=== PATIENT | male | born 1945 | race Caucasian/White ===

== ENCOUNTER → 2016-02-12 | Outpatient (CLI) | payer BC ==
[~2016-02-12] MED LIST: ASCO500C43 PO; ASPCH81X PO; ATOR-22 PO; OPTIRAY 320 IV PRN; VITACAP37 PO
--- NOTE | 2016-02-12 10:05 | DIAGNOSTIC IMAGING REPORT ---
CT OF THE CHEST WITH IV CONTRAST CLINICAL HISTORY: Exacerbation of COPD. COMPARISON STUDY: No previous studies for comparison. TECHNIQUE: Following the IV administration of 92 mL of Optiray-320, CT of the thorax was performed from the thoracic inlet to the lung bases. Images are reviewed in the axial, sagittal, and coronal planes. IV contrast was administered without complication. CT DOSE: 371.48 mGy.cm FINDINGS: Thyroid: Imaged portions of the thyroid gland are normal in appearance. Thoracic aorta: The thoracic aorta is normal in course and caliber, noting standard 3-vessel arch anatomy. No aneurysm or dissection is seen. Pulmonary vasculature: The pulmonary trunk is normal in caliber. There are no central filling defects identified to suggest pulmonary embolus. Note that this examination was not protocoled for the evaluation of pulmonary emboli. HEART: The heart is normal in size and configuration, without pericardial effusion. Lungs and pleural spaces: There is pulmonary emphysema. There are no pleural effusions. There is no focal pulmonary consolidation. There is a 2.5 mm right upper lobe pulmonary nodule as visualized in image #[id number]. Mediastinum: There is no mediastinal lymphadenopathy. Pam: Clear. Axilla: Clear. Upper abdomen: There is a 2 cm right renal cyst. There is a 2 left renal cysts measuring 7 mm and 8 mm respectively. Skeletal structures: There are no lytic or blastic osseous lesions. IMPRESSION: 1. Pulmonary emphysema 2. No evidence of focal pulmonary consolidation 3. No evidence of pathologic adenopathy 4. 2.5 mm right upper lobe pulmonary nodule. 12 month follow-up is recommended if this patient is at high risk, otherwise no further follow-up is indicated Please refer to below summary of Fleischner criteria recommendations for follow-up of incidental CT nodules (Zoltan Cook, Guidelines for management of small pulmonary nodules detected on CT scans: A statement from the Fleischner Society, Radiology 237: [id number].) Low Risk Patient: Minimal or no smoking or other known risk factors for malignancy <=4 mm: No follow-up needed. >4-6 mm: Initial follow-up CT at 12 months; if unchanged, no further follow-up. >6-8 mm: Initial follow-up CT at 6-12 months then at 18-24 months if no change. >8 mm: Follow-up CT at \R\3, 9, 24 months, or PET and/or biopsy. High Risk Patient: History of smoking or other known risk factors <=4 mm: Follow-up at 12 months; if unchanged, no further follow-up. >4-6 mm: Initial follow-up CT at 6-12 months then at 18-24 months if no change. >6-8 mm: Initial follow-up CT at 3-6 months then at 9-12 and 24 months if no change. >8 mm: Same as low risk patient. Note: Nodule size measured as average of length and width. Ground glass or partly solid nodules may require longer follow-up to exclude indolent adenocarcinoma. Electronically signed by: Aditya Sorot M.D. 02/12/2016 10:03 AM
== END | disposition home or self-care (01) ==
LOC: C.CTS 09:37
PROVIDERS: ATTEND Internal Medicine Pulmonary Disease
DX: Z00.00 Encounter for general adult medical examination without abnormal findings (principal); I71.4 Abdominal aortic aneurysm, without rupture; J44.9 Chronic obstructive pulmonary disease, unspecified; R91.1 Solitary pulmonary nodule

== ENCOUNTER → 2017-03-03 | Outpatient (CLI) | payer BC ==
[~2017-03-03] MED LIST changes: -OPTIRAY 320 IV PRN
--- NOTE | 2017-03-03 11:24 | DIAGNOSTIC IMAGING REPORT ---
CT SCAN OF THE CHEST WITHOUT IV CONTRAST CLINICAL HISTORY: Follow-up pulmonary nodule. COMPARISON STUDY: Chest CT dated 03/03/2017. TECHNIQUE: CT scan of the thorax was performed from the thoracic inlet to the upper abdomen. Images are reviewed in the axial, sagittal, and coronal planes. IV contrast was not administered for this examination as per the referring clinician. A dose lowering technique was utilized adhering to the principles of ALARA. CT DOSE: 377.53 mGy.cm FINDINGS: Thyroid: Imaged portions of the thyroid gland are normal in size and attenuation. Thoracic aorta: There is mild atherosclerotic calcification of the thoracic aorta, which is normal in caliber and demonstrates standard 3-vessel arch anatomy. Heart: The heart is normal in size and without pericardial effusion. The coronary arteries are densely calcified. Lungs and pleural spaces: Emphysematous change is identified. No airspace consolidation or pleural effusion is seen. Layering secretions are noted in the trachea. A 3 mm right upper lobe pulmonary nodule on image #85 is unchanged from 02/12/2016. No new nodule is seen. Mediastinum: There is no mediastinal lymphadenopathy. Pam: Not well assessed without IV contrast. Axillae: There is no axillary lymphadenopathy. Upper abdomen: There are numerous small nonobstructing right renal calculi which measure up to 3 mm. An aortic stent graft is partially imaged. Skeletal structures: The skeletal structures are osteopenic. No lytic or blastic bony lesions are seen. IMPRESSION: 1. Emphysema. 2. No airspace consolidation or pleural effusion is identified. 3. A pathologically indeterminant but low suspicion 3 mm right upper lobe nodule is unchanged from 02/12/2016. 1 additional follow-up examination in one years time is recommended to document 2 years of stability. 4. Right-sided nephrolithiasis. Electronically signed by: Edward Moore M.D. 03/03/2017 11:22 AM Dictated Date/Time: 03/03/2017 11:09 AM
== END | disposition home or self-care (01) ==
LOC: C.CTS 10:35
PROVIDERS: ATTEND Internal Medicine Critical Care Medicine
DX: R91.1 Solitary pulmonary nodule (principal); J43.9 Emphysema, unspecified; N20.0 Calculus of kidney

== ENCOUNTER → 2017-04-07 | Outpatient (CLI) | payer BC ==
[2017-04-07 11:02] LABS: BLOOD UREA NITROGEN 18 mg/dl (7-18); GLUCOSE 97 mg/dl (70-99)
[2017-04-07 11:03] LABS: ALBUMIN 4.1 gm/dl (3.4-5.0); ALT/SGPT 36 U/L (12-78); AST/SGOT 19 U/L (15-37); CALCIUM 9.2 mg/dl (8.5-10.1); CARBON DIOXIDE 28 mmol/L (21-32); CREATININE 1.16 mg/dl (0.60-1.40); POTASSIUM 4.2 mmol/L (3.5-5.1); SODIUM 139 mmol/L (136-145)
[2017-04-07 11:05] LABS: ALKALINE PHOSPHATASE 62 U/L (45-117); CHOLESTEROL 143 mg/dl (0-200); LDL CHOLESTEROL CALCULATED 67 mg/dl
== END | disposition home or self-care (01) ==
LOC: C.LABBC 08:41
PROVIDERS: ATTEND Family Medicine Adult Medicine
DX: Z00.00 Encounter for general adult medical examination without abnormal findings (principal); E78.5 Hyperlipidemia, unspecified

== ENCOUNTER 2023-01-29 14:15 | Observation (INO) ==
--- NOTE | 2023-01-29 14:55 | Emergency Department Note ---
Impression & Plan SOB (shortness of breath), Hypoxia, Pneumothorax ED Provider Note NAME: COLT BRAVO AGE: 78 SEX: M : 1945 ARRIVES VIA: Walk-In INFORMANT: [Patient] ED PROVIDER(S): [Edward Pickett MD] CHIEF COMPLAINT: DrPrice Royal HISTORY OF PRESENT ILLNESS: The patient is a 78-year-old male who 2 days ago had a bronchoscopy with biopsy. After the procedure he was felt to have a small pneumothorax. The patient presented today as an outpatient for a repeat chest x-ray and the pneumothorax had increased in size significantly. He was called and told to report back to the hospital for a chest tube. 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 The patient does have COPD. He does not typically wear oxygen. He has felt more short of breath the last few days. No cough, no congestion. No fever. PMHx/PSHx/Social Hx: See Below PHYSICAL EXAM: GENERAL: Patient is in no acute distress. HEENT: No acute trauma, normocephalic atraumatic, mucous membranes moist, no nasal congestion. NECK: No stridor, no adenopathy, no meningismus, trachea is midline. LUNGS: There are diminished breath sounds on the left, the right lung has a few scattered wheezes. He is not in respiratory distress HEART: Without murmurs gallops or rubs, regular rate and rhythm. ABDOMEN: Soft, nontender, no peritonitis. EXTREMITIES: No cyanosis, full range of motion of all the joints without pain or difficulty. NEUROLOGIC: Oriented x 3, no acute motor or sensory deficits, no focal weakness. SKIN: No jaundice, no diaphoresis. DIFFERENTIAL DIAGNOSIS: Pneumonia, pneumothorax, pneumomediastinum, hypoxia, anemia, cardiac ischemia, among others. EMERGENCY DEPARTMENT PROCEDURES: MEDICAL DECISION MAKING: There is a normal white blood cell count, there is a normal hemoglobin. There is a normal platelet count. No coagulopathy. No renal failure or significant electrolyte abnormality. No concerning liver enzyme elevation. Chest x-ray from earlier today as an outpatient showed a large left-sided pneumothorax. On exam, the patient was initially hypoxic but this improved with O2 supplementation. He had diminished breath sounds on the left. I did speak with pulmonology, the patient did have a chest tube placed by pulmonology. A repeat film showed near resolution of the pneumothorax. The patient is being hospitalized. I did speak with the patient and case management, the on-call hospitalist was consulted. Prior/Outside records/notes reviewed: Chest x-ray results from earlier today as an outpatient showing a left-sided pneumothorax. ECG per my interpretation: Indication was shortness of breath. The ECG shows a sinus rhythm with a PVC. The rate is 71. There is no ST elevation, QTc is 395. Continuous Cardiac Monitoring per my interpretation: An order was placed for continuous cardiac monitoring. The monitor shows a rate of 77 with normal sinus rhythm. Imaging/x-ray results per my interpretation: Chest x-ray from earlier today as an outpatient shows a very large left-sided pneumothorax. There was no mediastinal shift. Repeat chest x-ray showed near resolution of the previous left-sided pneumothorax. A small chest tube was in proper position. Chronic Medical/Social conditions affecting care: COPD. Care/Management discussed with: Pulmonology-Dr. Foote. Case management, the on-call hospitalist. Level of care consideration(s): After review of the information above and other included data: --I believe the patient requires escalation of care to admission DISPOSITION: Admission Past Med/Surg History Medical History Lung cancer Abdominal aortic aneurysm s/p repair 2016 Multiple pulmonary nodules determined by computed tomography of lung BPH (benign prostatic hyperplasia) Kidney stones hx PVC (premature ventricular contraction) on occasion Hypertension Diverticulosis Hyperlipemia COPD (chronic obstructive pulmonary disease) well controlled per pt > no res inh use Surgical History History of aortic aneurysm repair endovascular > [facility] [place] > 2016 > follows with [facility] cardiology. Has to go for scan on 02/06/23 to check for "leak around the stent" as evidence of size increase per recent ultrasound [facility]. History of cataract surgery bilat History of tooth extraction dental implants History of lithotripsy History of inguinal hernia repair left x 1, right x 2. H/O colonoscopy 07/2020 repeat 5 years Family History Father Colon cancer Colorectal cancer Family/Other Heart disease Hypertension Mother Stroke Denies family history of Ovarian cancer Prostate cancer Myocardial infarction Breast cancer Social History Smoking Status: Former smoker Tobacco Type: Cigarettes Age Started Using Tobacco: 32; packs per day: 0.5; Cigarettes Per Day: 10 cigs per day; Second Hand Exposure: No; Do You Dip or Chew Tobacco: No; Hx Alcohol Use: No Hx Substance Use: No Preferred Language: Azeri Communication Ability: Effective Visual Impairment: Limited Hearing Ability: Normal [employer] Required: No Beliefs That Will Affect Care: None marital status: Current Living Situation: Spouse Current Living Situation Comment: lives with current 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 How many Children do You have: 1 Feels Safe at Home: Yes Childhood Exposure to Second-Hand Smoke: No caffeine: Yes Dental Care, Regularly: Yes Physical Activity Frequency: Does not Exercise Seatbelt Use: always Sunscreen Use: Yes Assistive Devices: None Allergies Allergies Allergy/AdvReac Type Severity Reaction Status Date / Time JUAN R Inhibitors AdvReac Intermediate hyperkalemi Verified 01/29/23 14:50 a Home Meds Home Medications Medication Instructions Recorded Confirmed ascorbate calcium (vitamin C) 500 500 mg PO QAM 09/23/18 01/29/23 mg tablet aspirin 81 mg tablet,delayed 81 mg PO QAM 09/23/18 01/29/23 release (Adult Aspirin Regimen) vitamin E succinate 268 mg (400 400 units PO QAM 11/30/18 01/29/23 unit) tablet fluticasone fur. 100 mcg-umeclid 1 inh inhalation DAILY PRN sob 04/30/22 01/29/23 62.5 mcg-vilant 25 mcg inhalat.powder (Trelegy Ellipta) amlodipine 5 mg tablet 5 mg PO QPM 01/20/23 01/29/23 cholecalciferol (vitamin D3) 50 50 mcg PO QPM 01/20/23 01/29/23 mcg (2,000 unit) capsule (Vitamin D3) Previous Rx's Medication Instructions Recorded albuterol sulfate 90 mcg/actuation 2 inh inhalation QID PRN shortness 12/19/20 aerosol inhaler of breath or wheezing #8.5 grams atorvastatin 20 mg tablet (Lipitor) 20 mg PO PM 90 days #90 tabs 06/24/22 Results & Data (ED) Vital Signs Vital Signs - 24 hr 01/29/23 14:16 01/29/23 14:32 01/29/23 15:15 Temperature 36.5 C Temperature Source Skin Pulse Rate 77 Pulse Rate [Apical] 84 Pulse Rate from SpO2 Sensor Respiratory Rate 18 20 Respiratory Effort / Characteristics Non-Labored Spontaneous Respiratory Depth Normal Respiratory Pattern Regular Blood Pressure 132/82 131/84 Blood Pressure [Left Arm] 157/87 H Blood Pressure Mean 98 97 Blood Pressure Mean [Left Arm] 110 Pulse Oximetry 94 85 L Oxygen Delivery Method Nasal Cannula Room Air Oxygen Flow Rate 4 Sepsis Recent Fever Within 48 Hours No Sepsis New/Unexplained Change in Mental Status N/A Sepsis Action Taken by Nursing No Action Required End-Tidal CO2 01/29/23 15:15 01/29/23 15:21 01/29/23 15:25 Temperature Temperature Source Pulse Rate 76 66 Pulse Rate [Apical] 69 Pulse Rate from SpO2 Sensor 73 Respiratory Rate 13 18 Respiratory Effort / Characteristics Respiratory Depth Respiratory Pattern Blood Pressure Blood Pressure [Left Arm] 131/84 Blood Pressure Mean Blood Pressure Mean [Left Arm] 99 Pulse Oximetry 94 93 Oxygen Delivery Method Room Air Oxygen Flow Rate Sepsis Recent Fever Within 48 Hours Sepsis New/Unexplained Change in Mental Status Sepsis Action Taken by Nursing End-Tidal CO2 20 01/29/23 15:30 01/29/23 15:30 01/29/23 15:45 Temperature Temperature Source Pulse Rate 74 Pulse Rate [Apical] Pulse Rate from SpO2 Sensor 75 Respiratory Rate 20 Respiratory Effort / Characteristics Respiratory Depth Respiratory Pattern Blood Pressure 142/87 H 136/79 Blood Pressure [Left Arm] Blood Pressure Mean 107 105 Blood Pressure Mean [Left Arm] Pulse Oximetry 88 L Oxygen Delivery Method Room Air Oxygen Flow Rate Sepsis Recent Fever Within 48 Hours Sepsis New/Unexplained Change in Mental Status Sepsis Action Taken by Nursing End-Tidal CO2 01/29/23 15:45 01/29/23 16:00 01/29/23 16:00 Temperature Temperature Source Pulse Rate 75 71 Pulse Rate [Apical] Pulse Rate from SpO2 Sensor 72 69 Respiratory Rate 18 18 Respiratory Effort / Characteristics Respiratory Depth Respiratory Pattern Blood Pressure 130/73 Blood Pressure [Left Arm] Blood Pressure Mean 90 Blood Pressure Mean [Left Arm] Pulse Oximetry 91 90 Oxygen Delivery Method Room Air Room Air Oxygen Flow Rate Sepsis Recent Fever Within 48 Hours Sepsis New/Unexplained Change in Mental Status Sepsis Action Taken by Nursing End-Tidal CO2 01/29/23 16:21 01/29/23 16:21 Temperature Temperature Source Pulse Rate 67 Pulse Rate [Apical] Pulse Rate from SpO2 Sensor 67 Respiratory Rate 18 Respiratory Effort / Characteristics Respiratory Depth Respiratory Pattern Blood Pressure 131/79 Blood Pressure [Left Arm] Blood Pressure Mean 98 Blood Pressure Mean [Left Arm] Pulse Oximetry 91 Oxygen Delivery Method Room Air Oxygen Flow Rate Sepsis Recent Fever Within 48 Hours Sepsis New/Unexplained Change in Mental Status Sepsis Action Taken by Nursing End-Tidal CO2 Home Medications Current Medication List: was personally reviewed by me Laboratory Data Attestation: I reviewed the patient's lab results. 01/29/23 14:45 01/29/23 14:45 Lab Results 01/29/23 Range/Units 14:45 WBC 10.80 (4.8-10.8) K/ul RBC 4.71 (4.70-6.10) M/uL Hgb 14.5 (14.0-18.0) g/dl Hct 43.1 (42.0-52.0) % MCV 91.5 (80.0-100.0) fL MCH 30.8 (25.0-34.0) pg MCHC 33.6 (32.0-36.0) g/dL RDW Std Deviation 50.2 H (36.4-46.3) fL RDW Coeff of Fany 14.9 H (11.5-14.5) % Plt Count 235 (130-400) K/uL MPV 10.3 (9.4-12.4) fL Immature Gran % (Auto) 0.5 % Neut % (Auto) 73.4 % Lymph % (Auto) 16.8 % [place] % (Auto) 7.7 % Eos % (Auto) 1.0 % Baso % (Auto) 0.6 % Neut # (Auto) 7.94 H (1.40-6.50) K/uL Lymph # (Auto) 1.81 (1.20-3.40) K/uL [place] # (Auto) 0.83 H (0.11-0.59) K/uL Eos # (Auto) 0.11 (0.00-0.50) K/uL Baso # (Auto) 0.06 (0.00-0.20) K/uL Immature Gran # (Auto) 0.05 (0.01-0.20) K/uL PT 10.3 (9.0-12.0) Seconds INR 0.9 (0.9-1.1) APTT 27 (21-31) Seconds PTT Ratio 1.0 Sodium 139 (136-145) mmol/L Potassium 4.0 (3.5-5.1) mmol/L Chloride 102 (98-107) mmol/L Carbon Dioxide 31 (21-32) mmol/L Anion Gap 6 (3-11) BUN 20 (6-23) mg/dl Creatinine 1.27 (0.6-1.4) mg/dl Est Cr Clr Drug Dosing 46.3 ml/min Est GFR ( Amer) 63.2 ml/min Est GFR (Non-Af Amer) 54.5 ml/min BUN/Creatinine Ratio 15.7 (10-20) Glucose 145 H (70-99(Fasting)) mg/dl Calcium 9.6 (8.6-10.3) mg/dl Total Bilirubin 0.7 (0.2-1.0) mg/dl AST 18 (13-39) U/L ALT 17 (7-52) U/L Alkaline Phosphatase 65 (34-104) U/L Total Protein 7.2 (6.0-8.3) gm/dl Albumin 4.4 (3.4-5.0) gm/dl Globulin 2.8 (2.5-4.0) gm/dl Albumin/Globulin Ratio 1.6 (0.9-2) Imaging Data Radiologist's Impression: Chest X-Ray 01/29/23 15:18 XR chest 1V portable HISTORY: Left-sided pneumothorax. Follow-up. chest tube COMPARISON: Chest 01/29/2023. FINDINGS: Interval placement of a left upper chest tube with significant decrease in size in the now small left pneumothorax. Left lower lobe nodules again noted. The right lung is clear. The heart is normal in size. No midline shift. No acute fractures. IMPRESSION: Interval placement of a left upper chest tube with significant decrease in size in the now small left pneumothorax. ACT 112: Negative or not required by law. Electronically signed by: Neil Zeng M.D. 01/29/2023 3:58 PM Discharge Plan Visit Data Chief Complaint: Referred by Doctor Stated Complaint: LUNG ISSUE ED Provider: Edward Pickett Discharge Problem: SOB (shortness of breath), Hypoxia, Pneumothorax Patient Disposition: Admitted As Inpatient Condition: Fair Discharge Instructions Interventions: ED Discharge Assessment Last Done: 01/29/23 17:50 Discharge Problem: Pneumothorax Qualifiers: Pneumothorax type: postprocedural Qualified Code(s): J95.811 - Postprocedural pneumothorax
[2023-01-29 15:22] LABS: Albumin Globulin Ratio 1.6 (0.9-2); Albumin Level 4.4 gm/dl (3.4-5.0); BUN Creatinine Ratio 15.7 (10-20); Bilirubin,Total 0.7 mg/dl (0.2-1.0); Calcium 9.6 mg/dl (8.6-10.3); Creatinine Clr Calc Pharmacy 46.3 ml/min; Est GFR (African American) 63.2 ml/min; Est GFR (Non-African American) 54.5 ml/min; Globulin 2.8 gm/dl (2.5-4.0); Total Protein 7.2 gm/dl (6.0-8.3)
[2023-01-29 15:45] LABS: Basophils # (auto) 0.06 K/uL (0.00-0.20); Basophils % (auto) 0.6 %; Eosinophils # (auto) 0.11 K/uL (0.00-0.50); Hematocrit (blood only) 43.1 % (42.0-52.0); Hemoglobin 14.5 g/dl (14.0-18.0); Immature Granulocytes # (auto) 0.05 K/uL (0.01-0.20); Immature Granulocytes % (auto) 0.5 %; Lymphocytes # (auto) 1.81 K/uL (1.20-3.40); Lymphocytes % (auto) 16.8 %; Mean Corpuscular Hemoglobin 30.8 pg (25.0-34.0); Mean Corpuscular Hgb Conc 33.6 g/dL (32.0-36.0); Mean Corpuscular Volume 91.5 fL (80.0-100.0); Mean Platelet Volume 10.3 fL (9.4-12.4); Monocytes # (auto) 0.83 K/uL (0.11-0.59); Monocytes % (auto) 7.7 %; Neutrophils # (auto) 7.94 K/uL (1.40-6.50); Neutrophils % (auto) 73.4 %; Platelet Count 235 K/uL (130-400); RDW Coefficient of Variation 14.9 % (11.5-14.5); RDW Standard Deviation 50.2 fL (36.4-46.3); Red Blood Count 4.71 M/uL (4.70-6.10)
[2023-01-29 15:55] LABS: INR 0.9 (0.9-1.1); Partial Thromboplastin Time 27 Seconds (21-31); Prothrombin Time 10.3 Seconds (9.0-12.0)
--- NOTE | 2023-01-29 15:59 | XRay Report ---
XR chest 1V portable HISTORY: Left-sided pneumothorax. Follow-up. chest tube COMPARISON: Chest 01/29/2023. FINDINGS: Interval placement of a left upper chest tube with significant decrease in size in the now small left pneumothorax. Left lower lobe nodules again noted. The right lung is clear. The heart is n ormal in size. No midline shift. No acute fractures. IMPRESSION: Interval placement of a left upper chest tube with significant decrease in size in the now small left pneumothorax. ACT 112: Negative or not required by law. Electronically signed by: Neil Zeng M.D. 01/29/2023 3:58 PM
--- NOTE | 2023-01-29 16:03 | Procedure Note ---
Procedure Note Date of Service January 29, 2023 Note Left apical pneumothorax catheter placement Indication: Large left pneumo Anesthesia: 10 mL lidocaine 1% Written consent was obtained and placed on the chart. Timeout was done prior to the procedure. Prior to procedure, chest x-ray films were reviewed by myself and demonstrated a large left pneumothorax. A time-out was completed verifying correct patient, procedure, site, positioning, and implant(s) or special equipment if applicable. Utilizing bedside ultrasound, chest wall was evaluated for location for optimal chest tube placement. Lung point was identified with no pleural sliding in the left apex. Location between the first and second ribs were marked on the skin using gentle pressure. The left sided chest wall was prepped with chlorhexidine and draped in the typical sterile fashion. 10 mL of 1% Lidocaine without epinephrine was used to anesthetize the skin down to the dorsal surface of the second rib. Air return confirmed entry into the pleural space. Lidocaine was injected into the pleural space for increased anesthetization. Introducer needle on syringe was inserted in perpendicular fashion taking care to ride just above the dorsal surface of the second rib. Entry into the pleural space was heralded by air return into the syringe while under gentle aspiration. Catheter over the needle apparatus was inserted into the pleural space. The catheter was hooked up to the waterseal system. Significant grade 4 leak was identified which quickly subsided after approximately 2 minutes. Patient noticed improvement of his breathing. The catheter was sutured in place. Sterile dressing placed over the site. Postprocedural ultrasound revealed adequate pleural sliding. Blood Loss: Minimal Complications: None Post procedure Chest X-ray was ordered and reviewed by myself which demonstrated adequate placement. Coding CPT Codes Pulmonary/Thoracic - Pulmonary and Thoracic: 51314 Tube thoracostomy ([id number]) Pulmonary/Thoracic - Pulmonary and Thoracic: 01878 US, Chest, real time with imaging documentation ([id number]) [facility] [place] Procedure Codes (Charges) Pulmonary/Thoracic Procedure 1: Pulmonary and Thoracic: 21540 Tube thoracostomy Procedure 2: Pulmonary and Thoracic: 36932 US, Chest, real time with imaging documentation
--- NOTE | 2023-01-29 16:11 | Pulmonary Consultation ---
Date of Consultation January 29, 2023 Assessment & Plan (1) Pneumothorax after biopsy: Status post chest tube placement in the left apex 01/29/2023 with near complete resolution of pneumothorax. Will leave the chest tube to waterseal and repeat chest x-ray tomorrow morning. Hopefully, we will be able to remove chest tube tomorrow. (2) Lung cancer: Robotic navigational bronchoscopy 01/27/2023 revealed poorly differentiated adenocarcinoma in 2 different lung nodules. Genomics pending from biopsy. PET scan 01/15/2023 revealed PET avid nodules in the lingula and also in the left lower lobe. Pathological stage of T4/N0/M0. Clinical stage IIIa disease. Patient likely a poor candidate for surgery given poor PFTs. FEV1 03/22/2021 was 1.30 L, 44%. DLCO 63%. Will need follow-up PFTs and possible CPET. Patient will need referral to medical oncology, radiation, oncology and thoracic surgery. Laterality: left Lung location: overlapping sites Qualified Code(s): C34.82 - Malignant neoplasm of overlapping sites of left bronchus and lung History of Present Illness Reason for Consultation: Postprocedural pneumothorax History of Present Illness 78-year-old male with history of COPD who underwent elective robotic navigational bronchoscopy yesterday for multiple lung nodules. Patient has small postprocedural pneumothorax, but was relatively asymptomatic. He was ultimately discharged home after the procedure. He had a follow-up chest x-ray today which demonstrated near-total collapse of the left lung with extensive pneumothorax. No tension was seen on chest x-ray. Patient actually went to work today and has been relatively asymptomatic aside for some mildly increasing shortness of breath. He was counseled to go to the ER immediately. Upon arrival to the ER his oxygen saturations were 81% on room air, but he remained relatively asymptomatic at rest. I was consulted to place a chest tube. I placed a small bore chest tube at bedside at the left apex with near immediate resolution of the pneumothorax. He initially had a grade 4 airleak which is now completely resolved. He is feeling better post chest tube placement. Of note, his biopsy results that indicate malignancy and the patient is aware. Allergies Allergy/AdvReac Type Severity Reaction Status Date / Time JUAN R Inhibitors AdvReac Intermediate hyperkalemi Verified 01/29/23 14:50 a Home Medications Medication Instructions Recorded Confirmed Type ascorbate calcium (vitamin C) 500 500 mg PO QAM 09/23/18 01/29/23 History mg tablet aspirin 81 mg tablet,delayed 81 mg PO QAM 09/23/18 01/29/23 History release (Adult Aspirin Regimen) vitamin E succinate 268 mg (400 400 units PO QAM 11/30/18 01/29/23 History unit) tablet albuterol sulfate 90 mcg/actuation 2 inh inhalation QID PRN shortness 12/19/20 01/29/23 Rx aerosol inhaler of breath or wheezing #8.5 grams fluticasone fur. 100 mcg-umeclid 1 inh inhalation DAILY PRN sob 04/30/22 01/29/23 History 62.5 mcg-vilant 25 mcg inhalat.powder (Trelegy Ellipta) atorvastatin 20 mg tablet (Lipitor) 20 mg PO PM 90 days #90 tabs 06/24/22 Rx amlodipine 5 mg tablet 5 mg PO QPM 01/20/23 01/29/23 History cholecalciferol (vitamin D3) 50 50 mcg PO QPM 01/20/23 01/29/23 History mcg (2,000 unit) capsule (Vitamin D3) Patient History Medical History Lung cancer Abdominal aortic aneurysm s/p repair 2015 Multiple pulmonary nodules determined by computed tomography of lung BPH (benign prostatic hyperplasia) Kidney stones hx PVC (premature ventricular contraction) on occasion Hypertension Diverticulosis Hyperlipemia COPD (chronic obstructive pulmonary disease) well controlled per pt > no res inh use Surgical History History of aortic aneurysm repair endovascular > [facility] [place] > 2016 > follows with [facility] cardiology. Has to go for scan on 02/06/23 to check for "leak around the stent" as evidence of size increase per [facility] History of cataract surgery bilat History of tooth extraction dental implants History of lithotripsy History of inguinal hernia repair left x 1, right x 2. H/O colonoscopy 07/2020 repeat 5 years Family History Father Colon cancer Colorectal cancer Family/Other Heart disease Hypertension Mother Stroke Denies family history of Ovarian cancer Prostate cancer Myocardial infarction Breast cancer Social History Smoking Status: Former smoker Tobacco Type: Cigarettes Age Started Using Tobacco: 32; packs per day: 0.5; Cigarettes Per Day: 10 cigs per day; Second Hand Exposure: No; Do You Dip or Chew Tobacco: No; Hx Alcohol Use: No Hx Substance Use: No Preferred Language: Welsh Communication Ability: Effective Visual Impairment: Limited Hearing Ability: Normal [place] Required: No Beliefs That Will Affect Care: None marital status: Current Living Situation: Spouse Current Living Situation Comment: lives with current occupational status: 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 Patient is in no apparent distress. Patient is well-developed. Eyes: Pupils are equal round and reactive to light. Conjunctivae are normal. Anicteric sclera. Ears nose, mouth and throat: Mallampati class 2. Normal posterior oropharynx. Uvula is midline. Neck: Trachea is midline. Visual inspection is normal. Respiratory: Clear to auscultation bilaterally. No use of accessory muscles. No significant clubbing noted. Cardiovascular: Regular rate and rhythm. No murmurs. No edema. Gastrointestinal: Normal bowel sounds, soft, nontender and nondistended. No hepatosplenomegaly noted. Musculoskeletal: No cyanosis. Patient is able to move all extremities. Strength is 5 out of 5 in the upper and lower extremities. Skin: No rashes, warm dry and intact. Neurologic: No obvious focal neurological deficits seen. Psychiatric: Alert and oriented x3 with a euthymic affect. Results & Data Results & Data Vital Signs (Past 12 Hours) Vital Signs Temp Pulse Pulse Resp BP BP Pulse Ox 01/29/23 16:00 130/73 01/29/23 16:00 71 18 90 01/29/23 15:45 75 18 91 01/29/23 15:45 136/79 01/29/23 15:30 74 20 88 L 01/29/23 15:30 142/87 H 01/29/23 15:25 66 01/29/23 15:21 69 18 131/84 93 01/29/23 15:15 76 13 94 01/29/23 15:15 131/84 01/29/23 14:32 36.5 C 77 20 132/82 85 L 01/29/23 14:16 84 18 157/87 H 94 O2 Del Method O2 Flow Rate 01/29/23 16:00 01/29/23 16:00 Room Air 01/29/23 15:45 Room Air 01/29/23 15:45 01/29/23 15:30 Room Air 01/29/23 15:30 01/29/23 15:25 01/29/23 15:21 Room Air 01/29/23 15:15 01/29/23 15:15 01/29/23 14:32 Room Air 01/29/23 14:16 Nasal Cannula 4 PG Care Time/CCT Total # of Minutes Spent Total Time Spent with Patient: Total time spent is greater than 50% in coordination of care (as documented) at patient's floor/unit and/or counseling patient: Coding Level of Care Code 40320 INT INP/OBS CARE 3/75MIN Diagnoses Pneumothorax after biopsy J95.811 Malignant neoplasm of overlapping sites of left lung C34.82 Laterality: left Lung location: overlapping sites
--- NOTE | 2023-01-29 16:27 | History & Physical Report ---
Date of Service January 29, 2023 Assessment & Plan (1) Pneumothorax after biopsy: (2) Lung cancer: (3) BPH (benign prostatic hyperplasia): (4) Chronic obstructive pulmonary disease: (5) Hyperlipidemia: (6) Hypertension: (7) Tobacco abuse counseling: Plan Pneumothorax after biopsy- Significantly proved after placement of chest tube in ED Consult pulmonology for continued chest tube management Resume aspirin as long as okay with pulmonology COPD/newly diagnosed lung cancer- Patient otherwise at baseline breathing Continue usual inhalers Direction of treatment to be determined by pulmonology Hypertension- Continue amlodipine with hold parameters History of Present Illness Chief Complaint: The patient was referred to the emergency department after outpatient chest x- ray showed worsening left-sided pneumothorax, was initially noted 2 days ago post lung biopsy, which worsened considerably today. Primary Care Provider: Efrem Estevez DO The patient is a 78-year-old male with past medical history including newly diagnosed lung cancer, history of abdominal aortic aneurysm repair, BPH, COPD, hyperlipidemia, hypertension and tobacco abuse. He underwent a lung biopsy 2 days ago, postprocedure showed a minimal pneumothorax, but follow-up x-ray today showed a worsening pneumothorax, and patient was referred to the ED for assessment. In the emergency department patient was seen by pulmonology, who placed a chest tube, with significant decrease in size of now small pneumothorax. Patient was then referred for evaluation to my hospital service, with pulmonology consult to follow chest tube management Allergies Allergy/AdvReac Type Severity Reaction Status Date / Time JUAN R Inhibitors AdvReac Intermediate hyperkalemi Verified 01/29/23 14:50 a Home Medications Medication Instructions Recorded Confirmed Type ascorbate calcium (vitamin C) 500 500 mg PO QAM 09/23/18 01/29/23 History mg tablet aspirin 81 mg tablet,delayed 81 mg PO QAM 09/23/18 01/29/23 History release (Adult Aspirin Regimen) vitamin E succinate 268 mg (400 400 units PO QAM 11/30/18 01/29/23 History unit) tablet albuterol sulfate 90 mcg/actuation 2 inh inhalation QID PRN shortness 12/19/20 01/29/23 Rx aerosol inhaler of breath or wheezing #8.5 grams fluticasone fur. 100 mcg-umeclid 1 inh inhalation DAILY PRN sob 04/30/22 01/29/23 History 62.5 mcg-vilant 25 mcg inhalat.powder (Trelegy Ellipta) atorvastatin 20 mg tablet (Lipitor) 20 mg PO PM 90 days #90 tabs 06/24/22 01/29/23 Rx amlodipine 5 mg tablet 5 mg PO QPM 01/20/23 01/29/23 History cholecalciferol (vitamin D3) 50 50 mcg PO QPM 01/20/23 01/29/23 History mcg (2,000 unit) capsule (Vitamin D3) Past Med/Surg History Medical History (Updated 01/29/23 @ 16:09 by Fernando Khan MD) Lung cancer Abdominal aortic aneurysm s/p repair 2015 Multiple pulmonary nodules determined by computed tomography of lung BPH (benign prostatic hyperplasia) Kidney stones hx PVC (premature ventricular contraction) on occasion Hypertension Diverticulosis Hyperlipemia COPD (chronic obstructive pulmonary disease) well controlled per pt > no res inh use Surgical History History of aortic aneurysm repair endovascular > [facility] [place] > 2015 > follows with [facility] cardiology. Has to go for scan on 02/06/23 to check for "leak around the stent" as evidence of size increase per recent ultrasound [facility]. History of cataract surgery bilat History of tooth extraction dental implants History of lithotripsy History of inguinal hernia repair left x 1, right x 2. H/O colonoscopy 07/2020 repeat 5 years Family History Father Colon cancer Colorectal cancer Family/Other Heart disease Hypertension Mother Stroke Denies family history of Ovarian cancer Prostate cancer Myocardial infarction Breast cancer Social History Smoking Status: Never smoker Tobacco Type: Cigarettes Age Started Using Tobacco: 32; packs per day: 0.5; Cigarettes Per Day: 10 cigs per day; Second Hand Exposure: No; Do You Dip or Chew Tobacco: No; Hx Alcohol Use: No Hx Substance Use: No Preferred Language: Amharic Communication Ability: Effective Visual Impairment: Limited Hearing Ability: Normal Payroll Accounting Specialist Required: No Beliefs That Will Affect Care: None marital status: Current Living Situation: Spouse current occupational status: retired 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 How many Children do You have: 1 Feels Safe at Home: Yes Childhood Exposure to Second-Hand Smoke: No caffeine: Yes Dental Care, Regularly: Yes Physical Activity Frequency: Does not Exercise Seatbelt Use: always Sunscreen Use: Yes Assistive Devices: None Review of Systems Review of Systems: The patient denies palpitations, cough, lower extremity swelling, sore throat, fevers, chills, sweats, weight change, fatigue, nausea, vomiting, diarrhea , constipation, abdominal pain, pelvic pain, blood in urine or stool, dysuria, urinary frequency or urgency, lightheadedness, dizziness, headache, memory loss, loss of consciousness, rash, abnormal bruising or bleeding, imbalance, focal or generalized weakness, numbness or tingling in arms or legs, generalized arthralgias or myalgias, back or neck pain, or night sweats. The review of systems is otherwise negative other than for that already noted above, and at least 10 systems have been reviewed. Physical Exam Physical Exam: The patient is awake, alert and oriented 3, well developed and well nourished, normocephalic and atraumatic, lying in bed and in no acute distress. HEENT--PERRL, EOMI, mucous membranes and oropharynx normal. Neck--supple. No JVD. No bruits. Thyroid normal, trachea midline, no adenopathy. Heart--normal S1 and S2. No murmurs, rubs or gallops. Lungs--overall clear bilaterally with slight wheeze on the left. No respiratory distress, no accessory muscle use. Abdomen--normal bowel sounds and soft. Nontender. Nondistended, no hernias or masses, no organomegaly. Extremities--no cyanosis or clubbing. No edema. Dermatologic--normal skin turgor, normal color, no abnormal lymph nodes, no rash. Neurologic--cranial nerves II through XII grossly intact. Rheumatologic--normal range of motion. Psychiatric--normal affect. Results & Data Results & Data Vital Signs (Past 12 Hours) Vital Signs Temp Pulse Pulse Resp BP BP Pulse Ox 01/29/23 16:00 130/73 01/29/23 16:00 71 18 90 01/29/23 15:45 75 18 91 01/29/23 15:45 136/79 01/29/23 15:30 74 20 88 L 01/29/23 15:30 142/87 H 01/29/23 15:25 66 01/29/23 15:21 69 18 131/84 93 01/29/23 15:15 76 13 94 01/29/23 15:15 131/84 01/29/23 14:32 36.5 C 77 20 132/82 85 L 01/29/23 14:16 84 18 157/87 H 94 O2 Del Method O2 Flow Rate 01/29/23 16:00 01/29/23 16:00 Room Air 01/29/23 15:45 Room Air 01/29/23 15:45 01/29/23 15:30 Room Air 01/29/23 15:30 01/29/23 15:25 01/29/23 15:21 Room Air 01/29/23 15:15 01/29/23 15:15 01/29/23 14:32 Room Air 01/29/23 14:16 Nasal Cannula 4 Laboratory Results Laboratory Results WBC 10.80 K/ul (4.8-10.8) 01/29/23 14:45 RBC 4.71 M/uL (4.70-6.10) 01/29/23 14:45 Hgb 14.5 g/dl (14.0-18.0) 01/29/23 14:45 Hct 43.1 % (42.0-52.0) 01/29/23 14:45 MCV 91.5 fL (80.0-100.0) 01/29/23 14:45 MCH 30.8 pg (25.0-34.0) 01/29/23 14:45 MCHC 33.6 g/dL (32.0-36.0) 01/29/23 14:45 RDW Std Deviation 50.2 fL (36.4-46.3) H 01/29/23 14:45 RDW Coeff of Fany 14.9 % (11.5-14.5) H 01/29/23 14:45 Plt Count 235 K/uL (130-400) 01/29/23 14:45 MPV 10.3 fL (9.4-12.4) 01/29/23 14:45 Immature Gran % (Auto) 0.5 % 01/29/23 14:45 Neut % (Auto) 73.4 % 01/29/23 14:45 Lymph % (Auto) 16.8 % 01/29/23 14:45 Dare % (Auto) 7.7 % 01/29/23 14:45 Eos % (Auto) 1.0 % 01/29/23 14:45 Baso % (Auto) 0.6 % 01/29/23 14:45 Neut # (Auto) 7.94 K/uL (1.40-6.50) H 01/29/23 14:45 Lymph # (Auto) 1.81 K/uL (1.20-3.40) 01/29/23 14:45 Dare # (Auto) 0.83 K/uL (0.11-0.59) H 01/29/23 14:45 Eos # (Auto) 0.11 K/uL (0.00-0.50) 01/29/23 14:45 Baso # (Auto) 0.06 K/uL (0.00-0.20) 01/29/23 14:45 Immature Gran # (Auto) 0.05 K/uL (0.01-0.20) 01/29/23 14:45 PT 10.3 Seconds (9.0-12.0) 01/29/23 14:45 INR 0.9 (0.9-1.1) 01/29/23 14:45 APTT 27 Seconds (21-31) 01/29/23 14:45 PTT Ratio 1.0 01/29/23 14:45 Sodium 139 mmol/L (136-145) 01/29/23 14:45 Potassium 4.0 mmol/L (3.5-5.1) 01/29/23 14:45 Chloride 102 mmol/L (98-107) 01/29/23 14:45 Carbon Dioxide 31 mmol/L (21-32) 01/29/23 14:45 Anion Gap 6 (3-11) 01/29/23 14:45 BUN 20 mg/dl (6-23) 01/29/23 14:45 Creatinine 1.27 mg/dl (0.6-1.4) 01/29/23 14:45 Est Cr Clr Drug Dosing 46.3 ml/min 01/29/23 14:45 Est GFR ( Amer) 63.2 ml/min 01/29/23 14:45 Est GFR (Non-Af Amer) 54.5 ml/min 01/29/23 14:45 BUN/Creatinine Ratio 15.7 (10-20) 01/29/23 14:45 Glucose 145 mg/dl (70-99(Fasting)) H 01/29/23 14:45 Calcium 9.6 mg/dl (8.6-10.3) 01/29/23 14:45 Total Bilirubin 0.7 mg/dl (0.2-1.0) 01/29/23 14:45 AST 18 U/L (13-39) 01/29/23 14:45 ALT 17 U/L (7-52) 01/29/23 14:45 Alkaline Phosphatase 65 U/L (34-104) 01/29/23 14:45 Total Protein 7.2 gm/dl (6.0-8.3) 01/29/23 14:45 Albumin 4.4 gm/dl (3.4-5.0) 01/29/23 14:45 Globulin 2.8 gm/dl (2.5-4.0) 01/29/23 14:45 Albumin/Globulin Ratio 1.6 (0.9-2) 01/29/23 14:45 Impressions Chest X-Ray 01/29/23 15:18 XR chest 1V portable HISTORY: Left-sided pneumothorax. Follow-up. chest tube COMPARISON: Chest 01/29/2023. FINDINGS: Interval placement of a left upper chest tube with significant decrease in size in the now small left pneumothorax. Left lower lobe nodules again noted. The right lung is clear. The heart is normal in size. No midline shift. No acute fractures. IMPRESSION: Interval placement of a left upper chest tube with significant decrease in size in the now small left pneumothorax. ACT 112: Negative or not required by law. Electronically signed by: Neil Zeng M.D. 01/29/2023 3:58 PM Code Status & VTE Plan Code Status Full code VTE Prophylaxis Plan VTE Prophylaxis will be ordered: Yes PG Care Time/CCT Total # of Minutes Spent Total Time Spent with Patient: Total time spent is greater than 50% in coordination of care (as documented) at patient's floor/unit and/or counseling patient: Coding Level of Care Code 83861 INT INP/OBS CARE 3/75MIN Diagnoses Pneumothorax after biopsy J95.811 Lung cancer C34.90 BPH (benign prostatic hyperplasia) N40.0 Centrilobular emphysema J43.2 COPD type: emphysema Emphysema type: centrilobular Hyperlipidemia E78.5 Hypertension I10 Tobacco abuse counseling Z71.6 (4) 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
[2023-01-29] MEDS ORDERED: NON-FORMULARY MEDICATION (Fluticasone-Umeclidin-Vilanter [Trelegy Ellipta] 100-62.5-25 mcg INH PRN (18:11)
[2023-01-29] MEDS ORDERED: ACETAMINOPHEN 325 MG TAB PO PRN (18:11)
[2023-01-29] MEDS ORDERED: ALBUTEROL HFA 8 GM INHALER INH PRN (18:11)
[2023-01-29] MEDS ORDERED: ONDANSETRON INJ 2 MG/ML 2 ML VIAL IV PRN (18:11)
[2023-01-29] MEDS: CHOLECALCIFEROL 1,000 UNITS 25 MCG TAB PO SCH (20:30)
[2023-01-29] MEDS: amLODIPine BESYLATE 5 MG TAB PO SCH (20:30)
[2023-01-29] MEDS: ATORVASTATIN 20 MG TAB PO SCH (20:30)
[2023-01-30] MEDS ORDERED: ALBUT/IPRATROP 3MG/0.5MG NEB 3 ML VIAL NEB STA (06:36)
[2023-01-30 06:55] LABS: Base Excess ABG 3.4 mEq/L (-9-1.8); HCO3 ABG 29 mmol/L (19-24); Oxygen Saturation ABG 95.2 % (90-95); PCO2 ABG 44 mmHg (35-46); PO2 ABG 68 mmHg (80-95); pH ABG 7.42 (7.35-7.45)
[2023-01-30 06:59] LABS: Allen Test Pos (Pos)
--- NOTE | 2023-01-30 07:04 | XRay Report ---
XR chest 1V portable HISTORY: Follow-up left-sided pneumothorax. s/p placement of pleural drain for pneumo COMPARISON: Chest 01/29/2023. FINDINGS: The left pleural drain is unchanged in position. A small predominantly basilar left pneumot horax is similar to the prior study. Left lower lobe nodule is again noted. The right lung is clear. The heart is stable in size. No evidence for pulmonary edema. IMPRESSION: Left-sided chest tube is unchanged in position. The small left pneumothorax is similar to the prior s coledy. ACT 112: Negative or not required by law. Electronically signed by: Neil Zeng M.D. 01/30/2023 7:02 AM
--- NOTE | 2023-01-30 07:18 | XRay Report ---
XR chest 1V portable CLINICAL HISTORY: eval pneumo s/p chest tube clamped COMPARISON STUDY: Chest radiograph January 29, 2023 at 8:56 PM. FINDINGS: Left pleural catheter remains in place. Large left pneumothorax has significantly increased in size since prior exam. There is no right pneumothorax. No evidence for pulmonary edema. Cardiomed iastinal silhouette is stable. IMPRESSION: Significant increase in size of a large left pneumothorax. Left pleural catheter in plac e. ACT 112: Negative or not required by law. Electronically signed by: Ascencion Hodge M.D. 01/30/2023 7:16 AM
--- NOTE | 2023-01-30 07:39 | XRay Report ---
XR chest 1V portable CLINICAL HISTORY: Pneumothorax. COMPARISON STUDY: Chest radiograph January 30, 2023 at 1:47 AM. FINDINGS: Left pleural catheter is in place. Left pneumothorax has significantly decreased in size. T here is a small residual pneumothorax. Left basilar opacity favors atelectasis. Cardiomediastinal glenn houette is stable. No evidence for pulmonary edema. IMPRESSION: Small left pneumothorax, significantly decreased in size since prior exam. Left pleural catheter in place. ACT 112: Negative or not required by law. Electronically signed by: Ascencion Hodge M.D. 01/30/2023 7:38 AM
[2023-01-30] MEDS: FLUTICASONE FUROATE 100MCG 14 PUFFS/INHALER INH SCH (09:14)
[2023-01-30] MEDS: UMECLIDINIUM/VILANTEROL 62.5/25MCG 7 PUFFS/INHALER INH SCH (09:15)
[2023-01-30] MEDS: ASCORBIC ACID 500 MG TAB PO SCH (09:16)
[2023-01-30] MEDS: ASPIRIN 81 MG ECTAB PO SCH (09:16)
[2023-01-30] MEDS: TOCOPHERYL, DL-ALPHA 400 UNITS 180 MG CAP PO SCH (09:17)
--- NOTE | 2023-01-30 10:17 | Pulmonology Progress Note ---
Date of Service January 30, 2023 Assessment & Plan (1) Pneumothorax after biopsy: Plan: Status post chest tube placement in the left apex 01/29/2023 with near complete resolution of pneumothorax. Unfortunately, his pneumothorax expanded overnight while the chest tube was clamped. I placed the chest tube back to waterseal today and have taken him off suction. Will repeat a chest x-ray later this afternoon. (2) Lung cancer: Plan: Robotic navigational bronchoscopy 01/27/2023 revealed poorly differentiated adenocarcinoma in 2 different lung nodules. Genomics pending from biopsy. PET scan 01/15/2023 revealed PET avid nodules in the lingula and also in the left lower lobe. Pathological stage of T4/N0/M0. Clinical stage IIIa disease. Patient likely a poor candidate for surgery given poor PFTs. FEV1 03/22/2021 was 1.30 L, 44%. DLCO 63%. Will need follow-up PFTs and possible CPET. Patient will need referral to medical oncology, radiation, oncology and thoracic surgery. I spoke with Dr. Roque over the phone 01/29/2023 and she will schedule an appointment for him. Laterality: left Lung location: overlapping sites Qualified Code(s): C34.82 - Malignant neoplasm of overlapping sites of left bronchus and lung Admission and Anticipated Discharge Date Admission Date: January 29, 2023 Subjective Left ankle chest tube was clamped overnight, but the patient unfortunately had reexpansion of pneumothorax. He is currently on suction. He noticed intermittent "muscle spasm" in his chest and some pleurisy. I placed the patient back on waterseal and will see how he does. He denies any shortness of breath at present. No fevers, chills or night sweats. Review of Systems Review of Systems: All systems reviewed & are unremarkable except as noted in HPI & below Physical Exam Physical Exam: Constitutional: Patient appears to be of their stated age. Patient is in no apparent distress. Patient is well-developed. Eyes: Pupils are equal round and reactive to light. Conjunctivae are normal. Anicteric sclera. Ears nose, mouth and throat: Mallampati class 2. Normal posterior oropharynx. Uvula is midline. Neck: Trachea is midline. Visual inspection is normal. Respiratory: Clear to auscultation bilaterally. No use of accessory muscles. No significant clubbing noted. Cardiovascular: Regular rate and rhythm. No murmurs. No edema. Gastrointestinal: Normal bowel sounds, soft, nontender and nondistended. No hepatosplenomegaly noted. Musculoskeletal: No cyanosis. Patient is able to move all extremities. Strength is 5 out of 5 in the upper and lower extremities. Skin: No rashes, warm dry and intact. Neurologic: No obvious focal neurological deficits seen. Psychiatric: Alert and oriented x3 with a euthymic affect. Results & Data Results & Data Vital Signs (Past 12 Hours) Vital Signs Temp Pulse Pulse Resp BP BP Pulse Ox 01/30/23 09:49 68 01/30/23 07:08 36.8 C 62 17 124/73 93 01/30/23 06:51 65 20 93 01/30/23 06:16 01/30/23 05:27 01/30/23 04:30 73 18 90 01/30/23 03:20 36.9 C 62 18 138/73 90 01/29/23 22:58 36.8 C 65 20 119/69 91 Pulse Ox O2 Del Method O2 Del Method O2 Flow Rate O2 Flow Rate 01/30/23 09:49 01/30/23 07:08 Nasal Cannula 6 01/30/23 06:51 Nasal Cannula 5 01/30/23 06:16 94 Oxymask 10 01/30/23 05:27 92 Nasal Cannula 6 01/30/23 04:30 Nasal Cannula 6 01/30/23 03:20 Nasal Cannula 4 01/29/23 22:58 Nasal Cannula 2 PG Care Time/CCT Total # of Minutes Spent Total Time Spent with Patient: Total time spent is greater than 50% in coordination of care (as documented) at patient's floor/unit and/or counseling patient: Coding Level of Care Code 99421 SUB INP/OBS CARE 2/35MIN Diagnoses Pneumothorax after biopsy J95.811 Malignant neoplasm of overlapping sites of left lung C34.82 Laterality: left Lung location: overlapping sites
--- NOTE | 2023-01-30 12:36 | Hospitalist Progress Note ---
Date of Service January 30, 2023 Assessment & Plan (1) Pneumothorax after biopsy: Plan: Pneumothorax after biopsy during bronchoscopy 01/27 -Improved after chest tube placement in ED, chest tube was clamped overnight 01/29 and worsened, but now improved Consult pulmonology for continued chest tube management -Chest tube to waterseal today - Repeat chest xray later today - CXR every morning -Wean O2 as able Resume aspirin as long as okay with pulmonology (2) Lung cancer: Plan: Dx on biopsy from bronchoscopy 01/27 -Pulmonology arranging referalls to medical oncology, radiation oncology and thoracic surgery (3) Chronic obstructive pulmonary disease: Plan: -baseline is room air (4) Hyperlipidemia: Plan: Continue home atorvastatin (5) Hypertension: Plan: Continue home amlodopine Plan Dispo: continued inpatient stay DVT proph: SCD knee, hold ASA/chem proh until pulmonolgy agreeable Admission and Anticipated Discharge Date Admission Date: January 29, 2023 Supervising Physician Co-Signing Physician Notes PA Supervision Note: I did not personally see or examine the patient today, but I verified all wilks points of OZ Foster's assessment and plan with the following exceptions/additions: None Subjective Patient seen sitting up in bed, at bedside. States that his feeling well, does not feel short of breath but requiring 5L of oxygen. Appetite has been poor recently but does feel that he is improved from previous days. Does not feel weak when up to the bathroom. Denies CP. Tele - SR 60-70s Review of Systems Review of Systems: All systems reviewed & are unremarkable except as noted in Subjective Physical Exam Physical Exam: General: WN/WD, NAD, VS as above Resp: normal respiratory effort, Left chest tube in place, dressing c/d/i. Diminished sound Lung bases CV: RRR, no murmur, Abd: normal bowel sounds, non tender, no hepatosplenomegaly Extremities: Moves all extremities, no edema Neuro: A&O x3, Results & Data Results & Data Vital Signs (Past 12 Hours) Vital Signs Temp Pulse Pulse Resp BP BP Pulse Ox 01/30/23 11:31 36.9 C 76 17 122/72 91 01/30/23 09:49 68 01/30/23 07:30 01/30/23 07:08 36.8 C 62 17 124/73 93 01/30/23 06:51 65 20 93 01/30/23 06:16 01/30/23 05:27 01/30/23 04:30 73 18 90 01/30/23 03:20 36.9 C 62 18 138/73 90 Pulse Ox O2 Del Method O2 Del Method O2 Flow Rate O2 Flow Rate 01/30/23 11:31 Nasal Cannula 5 01/30/23 09:49 01/30/23 07:30 Nasal Cannula 6 01/30/23 07:08 Nasal Cannula 6 01/30/23 06:51 Nasal Cannula 5 01/30/23 06:16 94 Oxymask 10 01/30/23 05:27 92 Nasal Cannula 6 01/30/23 04:30 Nasal Cannula 6 01/30/23 03:20 Nasal Cannula 4 Laboratory Results ABG and labs from yesterday reviewed Diagnostic Findings chest xrays reveiewed PG Care Time/CCT Total # of Minutes Spent Total Time Spent with Patient: Total time spent is greater than 50% in coordination of care (as documented) at patient's floor/unit and/or counseling patient: Coding Level of Care Code 26459 SUB INP/OBS CARE 2/35MIN Diagnoses Pneumothorax after biopsy J95.811 Malignant neoplasm of overlapping sites of left lung C34.82 Laterality: left Lung location: overlapping sites Centrilobular emphysema J43.2 COPD type: emphysema Emphysema type: centrilobular Hyperlipidemia E78.5 Hypertension I10 (2) Lung cancer Laterality: left Lung location: overlapping sites Qualified Code(s): C34.82 - Malignant neoplasm of overlapping sites of left bronchus and lung (3) 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
--- NOTE | 2023-01-30 14:47 | XRay Report ---
XR chest 1V portable HISTORY: Evaluate left-sided pneumothorax. Status post waterseal COMPARISON: Chest 01/30/2023. FINDINGS: Left pleural catheter is unchanged in position. The small left pneumothorax has continued t o decrease in size. This now demonstrates a maximal pleural gap of 4 mm. Left basilar densities persi st. The right lung is clear. The heart is normal in size. IMPRESSION: Continued decrease in size in the small left pneumothorax. A left pleural catheter is unchanged in po sition. ACT 112: Negative or not required by law. Electronically signed by: Neil Zeng M.D. 01/30/2023 2:46 PM
[2023-01-30] MEDS: ATORVASTATIN 20 MG TAB PO SCH (20:00)
[2023-01-30] MEDS: amLODIPine BESYLATE 5 MG TAB PO SCH (20:00)
[2023-01-30] MEDS: CHOLECALCIFEROL 1,000 UNITS 25 MCG TAB PO SCH (20:00)
--- NOTE | 2023-01-31 06:06 | Electrocardiogram Report ---
Test Reason : Blood Pressure : / mmHG Vent. Rate : 071 BPM Atrial Rate : 071 BPM P-R Int : 146 ms QRS Dur : 086 ms QT Int : 364 ms P-R-T Axes : 082 080 062 degrees QTc Int : 395 ms Sinus rhythm with occasional Premature ventricular complexes Incomplete right bundle branch block When compared with ECG of 27-JAN-2023 06:30, No significant change Confirmed by Naveen Gamez ([id number]) on 01/31/2023 6:05:51 AM Referred By: Confirmed By:Naveen Gamez
--- NOTE | 2023-01-31 07:10 | XRay Report ---
XR chest 1V portable CLINICAL HISTORY: Pneumothorax. COMPARISON STUDY: Chest radiograph January 31, 2023 at 1:27 AM. FINDINGS: Left pleural catheter is in place. No pneumothorax. Left basilar opacity persists with elev ation of the left hemidiaphragm. Right lung is clear. IMPRESSION: Left pleural catheter in place. No pneumothorax. ACT 112: Negative or not required by law. Electronically signed by: Ascencion Hodge M.D. 01/31/2023 7:08 AM
--- NOTE | 2023-01-31 07:19 | XRay Report ---
XR chest 1V portable CLINICAL HISTORY: eval pneumo s/p clamping CT COMPARISON STUDY: Chest radiograph January 30, 2023 at 9:07 PM. FINDINGS: Left pleural catheter is in place. There is no pneumothorax. Left basilar opacity persists with elevation of the left hemidiaphragm. Cardiomediastinal silhouette is stable. IMPRESSION: 1. Left pleural catheter in place. No left pneumothorax. 2. No change in left basilar opacity with elevation of the left hemidiaphragm. ACT 112: Negative or not required by law. Electronically signed by: Ascencion Hodge M.D. 01/31/2023 7:18 AM
--- NOTE | 2023-01-31 07:48 | XRay Report ---
XR chest 1V portable CLINICAL HISTORY: eval Chest tube placement COMPARISON STUDY: Chest radiograph January 30, 2023 at 2:16 PM. FINDINGS: Left pleural catheter is in place. There is a trace left pneumothorax. No significant ware e since prior exam is noted. Elevation of left hemidiaphragm with left basilar opacity is unchanged. Nodular left lower lung densities are again noted. IMPRESSION: Left pleural catheter in place. Trace left pneumothorax, similar in size to prior chest radiograph. ACT 112: Negative or not required by law. Electronically signed by: Ascencion Hodge M.D. 01/31/2023 7:47 AM
[2023-01-31] MEDS: TOCOPHERYL, DL-ALPHA 400 UNITS 180 MG CAP PO SCH (07:50)
[2023-01-31] MEDS: ASPIRIN 81 MG ECTAB PO SCH (07:51)
[2023-01-31] MEDS: ASCORBIC ACID 500 MG TAB PO SCH (07:51)
[2023-01-31] MEDS: FLUTICASONE FUROATE 100MCG 14 PUFFS/INHALER INH SCH (07:51)
[2023-01-31] MEDS: UMECLIDINIUM/VILANTEROL 62.5/25MCG 7 PUFFS/INHALER INH SCH (07:51)
--- NOTE | 2023-01-31 10:20 | Pulmonology Progress Note ---
Date of Service January 31, 2023 Assessment & Plan (1) Pneumothorax after biopsy: Plan: Status post chest tube placement in the left apex 01/29/2023 with near complete resolution of pneumothorax. CXR revealed that ptx resolved while chest tube was clamped. Chest tube removed at bedside. (2) Lung cancer: Plan: Robotic navigational bronchoscopy 01/27/2023 revealed poorly differentiated adenocarcinoma in 2 different lung nodules. Genomics pending from biopsy. PET scan 01/15/2023 revealed PET avid nodules in the lingula and also in the left lower lobe. Pathological stage of T4/N0/M0. Clinical stage IIIa disease. Patient likely a poor candidate for surgery given poor PFTs. FEV1 03/22/2021 was 1.30 L, 44%. DLCO 63%. Will need follow-up PFTs and possible CPET. Patient will need refe rral to medical oncology, radiation, oncology and thoracic surgery. Will obtain MRI brain to eval for mets. I spoke with Dr. Roque over the phone 01/29/2023 and she will schedule an appointment for him. Laterality: left Lung location: overlapping sites Qualified Code(s): C34.82 - Malignant neoplasm of overlapping sites of left bronchus and lung (3) Hypoxia: Plan: Likely multifactorial from ptx, copd exacerbation and cancer. Will start PO prednisone. Obtain RVP. Consider echocardiogram. Admission and Anticipated Discharge Date Admission Date: January 29, 2023 Subjective Patient seen and examined. He continues to have some mild shortness of breath at rest. He is currently on 6 L of oxygen saturating in the low 90s. Patient has had a chest tube clamped overnight. Chest x-ray this morning reveals no evidence of pneumothorax. He has mild elevation of his left hemidiaphragm. Review of Systems Review of Systems: All systems reviewed & are unremarkable except as noted in HPI & below Physical Exam Physical Exam: Constitutional: Patient appears to be of their stated age. Patient is in no apparent distress. Patient is well-developed. Coughing. Eyes: Pupils are equal round and reactive to light. Conjunctivae are normal. Anicteric sclera. Ears nose, mouth and throat: Mallampati class 2. Normal posterior oropharynx. Uvula is midline. Neck: Trachea is midline. Visual inspection is normal. Respiratory: Clear to auscultation bilaterally. No use of accessory muscles. Mild expiratory wheeze. Cardiovascular: Regular rate and rhythm. No murmurs. No edema. Gastrointestinal: Normal bowel sounds, soft, nontender and nondistended. No hepatosplenomegaly noted. Musculoskeletal: No cyanosis. Patient is able to move all extremities. Strength is 5 out of 5 in the upper and lower extremities. Skin: No rashes, warm dry and intact. Neurologic: No obvious focal neurological deficits seen. Psychiatric: Alert and oriented x3 with a euthymic affect. Results & Data Results & Data Vital Signs (Past 12 Hours) Vital Signs Temp Pulse Pulse Pulse Resp BP Pulse Ox 01/31/23 09:25 01/31/23 07:25 36.6 C 60 20 135/76 92 01/31/23 06:00 55 L 01/31/23 06:00 01/31/23 03:00 36.5 C 65 18 123/69 91 Pulse Ox O2 Del Method O2 Del Method O2 Flow Rate O2 Flow Rate 01/31/23 09:25 Nasal Cannula 6 01/31/23 07:25 Nasal Cannula 4 01/31/23 06:00 01/31/23 06:00 91 Nasal Cannula 3 01/31/23 03:00 Nasal Cannula 4 PG Care Time/CCT Total # of Minutes Spent Total Time Spent with Patient: Total time spent is greater than 50% in coordination of care (as documented) at patient's floor/unit and/or counseling patient: Coding Level of Care Code 13672 SUB INP/OBS CARE 2/35MIN Diagnoses Pneumothorax after biopsy J95.811 Malignant neoplasm of overlapping sites of left lung C34.82 Laterality: left Lung location: overlapping sites Hypoxia R09.02
--- NOTE | 2023-01-31 11:21 | Hospitalist Progress Note ---
Date of Service January 31, 2023 Assessment & Plan (1) Pneumothorax after biopsy: Plan: Pneumothorax after biopsy during bronchoscopy 01/27 Improved after chest tube placement in ED, chest tube was clamped overnight 01/29 and worsened, but now improved on 01/31 and chest tube removed Consult pulmonology appreciated--> CTA Chest performed 01/31 for persistent hypoxemia requiring 6LNC--> shows LLL collapse but no PE Add incentive spirometry and ordered ambulation tid -Wean O2 as able and will need 2 step walk test prior to discharge (2) Hypoxia: Plan: secondary to PTX and now from LLL collapse. ABG shows low PaO2 on 5LNC CTA CHest neg for PE but does show LLL collapse, no PNA Viral resp panel BioFire negative Continue supplemental O2 and wean off, 2 step tomorrow before discharge incentive spirometry started prednisone 40mg daily (3) Lung cancer: Plan: As per PULM, robotic navigational bronchoscopy 01/27/2023 revealed poorly differentiated adenocarcinoma in 2 different lung nodules. Genomics pending from biopsy. PET scan 01/15/2023 revealed PET avid nodules in the lingula and also in the left lower lobe. Pathological stage of T4/N0/M0. Clinical stage IIIa disease. Patient likely a poor candidate for surgery given poor PFTs. FEV1 03/22/2021 was 1.30 L, 44%. DLCO 63%. Will need follow-up PFTs and possible CPET. Patient will need referral to medical oncology, radiation, oncology and thoracic surgery. MRI brain to eval for mets here is negative Dr. Roque of Oncology is aware and will see him as an outpatient (4) Chronic obstructive pulmonary disease: Plan: -continue maintenance inhaler and albuterol prn, prednisone burst (5) Hyperlipidemia: Plan: Continue home atorvastatin (6) Hypertension: Plan: BPs controlled Continue home amlodipine Plan Dispo: continued inpatient stay but likely dc to home on 02/01 DVT proph: SCD knee Admission and Anticipated Discharge Date Admission Date: January 29, 2023 Subjective Chest tube removed this AM by Pulm. Remains on 6LNC. Pt denies pain in the chest and denies SOB. Has a mild cough. No other new issues. Is understandably upset about his recent diagnosis of lung CA. He is eating and drinking, voiding, out of bed to the bathroom independently. Is anxious to get home. I discussed his care with Pulm. MRI brain to be obtained for staging of CA but pt denies any focal neuro symptoms. ALso, CTA chest to be performed due to persistent hypoxemia despite resolution of PTX. Tele with NSR, rates 50-70s Physical Exam Constitutional: WD/WN, vitals as above Respiratory: normal respiratory effort; no cough Auscultation: + diminished lung sounds (at left base); no crackles, no rhonchi and no wheezes Cardiovascular: RRR, no murmur, no edema Gastrointestinal (Abdomen): normal bowel sounds, soft, nontender, no hepatosplenomegaly Neurologic: PERRL, EOMI, accommodation nl, no face palsy, no dysarthria moves all extremities; no focal motor deficits Results & Data Results & Data Vital Signs (Past 12 Hours) Vital Signs Temp Pulse Pulse Pulse Resp BP Pulse Ox 01/31/23 11:18 36.7 C 57 L 20 136/79 91 01/31/23 09:25 01/31/23 07:25 36.6 C 60 20 135/76 92 01/31/23 06:00 55 L 01/31/23 06:00 01/31/23 03:00 36.5 C 65 18 123/69 91 Pulse Ox O2 Del Method O2 Del Method O2 Flow Rate O2 Flow Rate 01/31/23 11:18 Nasal Cannula 6 01/31/23 09:25 Nasal Cannula 6 01/31/23 07:25 Nasal Cannula 4 01/31/23 06:00 01/31/23 06:00 91 Nasal Cannula 3 01/31/23 03:00 Nasal Cannula 4 Laboratory Results Procal, Biofire, and ABG reviewed Diagnostic Findings CXR and CTA Chest reviewed PG Care Time/CCT Total # of Minutes Spent Total Time Spent with Patient: Total time spent is greater than 50% in coordination of care (as documented) at patient's floor/unit and/or counseling patient: Coding Level of Care Code 71998 SUB INP/OBS CARE 3/50MIN Diagnoses Pneumothorax after biopsy J95.811 Hypoxia R09.02 Malignant neoplasm of overlapping sites of left lung C34.82 Laterality: left Lung location: overlapping sites Centrilobular emphysema J43.2 COPD type: emphysema Emphysema type: centrilobular Hyperlipidemia E78.5 Hypertension I10 (3) Lung cancer Laterality: left Lung location: overlapping sites Qualified Code(s): C34.82 - Malignant neoplasm of overlapping sites of left bronchus and lung (4) 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
[2023-01-31 11:38] LABS: Adenovirus PCR Not Detected (NotDetected); Bordetella parapertussis PCR Not Detected (NotDetected); Bordetella pertussis PCR Not Detected (NotDetected); Chlamydia pneumoniae PCR Not Detected (NotDetected); Coronavirus 229E PCR Not Detected (NotDetected); Coronavirus CoV-2 (COVID19)PCR Not Detected (NotDetected); Coronavirus HKU1 PCR Not Detected (NotDetected); Coronavirus NL63 PCR Not Detected (NotDetected); Coronavirus OC43PCR Not Detected (NotDetected); Human Metapneumovirus PCR Not Detected (NotDetected); Influenza A PCR Not Detected (NotDetected); Influenza B PCR Not Detected (NotDetected); Mycoplasma pneumoniae PCR Not Detected (NotDetected); Parainfluenza Virus 1 PCR Not Detected (NotDetected); Parainfluenza Virus 2 PCR Not Detected (NotDetected); Parainfluenza Virus 3 PCR Not Detected (NotDetected); Parainfluenza Virus 4 PCR Not Detected (NotDetected); Respiratory Syncytial VirusPCR Not Detected (NotDetected); Rhinovirus/Enterovirus PCR Not Detected (NotDetected)
[2023-01-31] MEDS ORDERED: GADOBUTROL 65ML VIAL IV ONE (12:34)
--- NOTE | 2023-01-31 13:12 | Magnetic Resonance Report ---
MRI OF THE BRAIN WITHOUT AND WITH IV CONTRAST CLINICAL HISTORY: Lung cancer. Evaluate for metastases COMPARISON STUDY: No previous studies for comparison. TECHNIQUE: Utilizing a 1.5 Denise magnet and dedicated coil, multiplanar, multiecho imaging of the br ain was performed pre and postcontrast administration. IV administration of 6.5 mL of Gadavist contr ast was uneventful. Thin cut T1 post contrast imaging was performed. FINDINGS: There are no foci of restricted diffusion to suggest acute infarct. No acute intracranial h emorrhage, midline shift or mass effect is present. Ventricular system is unremarkable. Basal cistern s are patent. Flow-voids for the major intracranial vessels are present. There is no intracranial mas s or pathologic enhancement. Numerous white matter T2 hyperintense foci suggest small vessel disease. No calvarial lesions are identified. Small mucous retention cyst within the left maxillary sinus is present. IMPRESSION: No evidence of intracranial metastatic disease. ACT 112: Negative or not required by law. Electronically signed by: Ascencion Hodge M.D. 01/31/2023 1:10 PM
[2023-01-31] MEDS ORDERED: OPTIRAY 320 125ml IV ONE (14:58)
--- NOTE | 2023-01-31 15:27 | CT Scan Report ---
CT ANGIOGRAPHY OF THE CHEST, PULMONARY EMBOLUS PROTOCOL CLINICAL HISTORY: Shortness of breath. Evaluate for pulmonary embolus. COMPARISON STUDY: Chest radiograph performed earlier today. Chest CT January 21, 2023. PET/CT Decem 2022. TECHNIQUE: Following IV administration of 119 mL of Optiray, helical axial images of the chest were o btained utilizing the pulmonary embolus protocol. Maximal intensity projections and sagittal and cor onal reformats were viewed on an independent 3D workstation. IV contrast was administered without co mplication. Automated exposure control was utilized for the study. A dose lowering technique was ut ilized adhering to the principles of ALARA. CT DOSE: 582.42 mGy.cm FINDINGS: No pulmonary emboli are identified. There is no thoracic aortic dissection. Mild cardiomeg trevor and moderate coronary artery calcification is present. There is no pericardial effusion. Small le ft and trace right pleural effusions are present. There is a small left pneumothorax. The left pleura l catheter has been removed. Left lower lobe collapse is noted. Multiple left upper lobe nodules daniel ure up to 1.4 cm. These were shown on prior CT and PET/CT. There is mild airspace opacity within the apicoposterior segment of the left upper lobe. Bronchial wall thickening with mucus plugging within t he right lower lobe is noted. Right lower lobe opacities favors atelectasis. No central obstructing m ass is identified. There are severe emphysema. No acute fractures within the bony thorax are noted. S everal small right renal calculi are present. Punctate left renal calculi are noted. IMPRESSION: 1. No pulmonary emboli identified. 2. Left lower lobe collapse. Segmental right lower lobe atelectasis. 3. Small left pneumothorax. Small left and trace right pleural effusions. 4. Severe emphysema. 5. Redemonstration of the suspicious pulmonary nodules shown on prior chest CT and PET/CT. ACT 112: Negative or not required by law. Electronically signed by: Ascencion Hodge M.D. 01/31/2023 3:25 PM
[2023-01-31] MEDS: CHOLECALCIFEROL 1,000 UNITS 25 MCG TAB PO SCH (20:04)
[2023-01-31] MEDS: ATORVASTATIN 20 MG TAB PO SCH (20:04)
[2023-01-31] MEDS: amLODIPine BESYLATE 5 MG TAB PO SCH (20:04)
[2023-02-01] MEDS: ASPIRIN 81 MG ECTAB PO SCH (08:10)
[2023-02-01] MEDS: TOCOPHERYL, DL-ALPHA 400 UNITS 180 MG CAP PO SCH (08:10)
[2023-02-01] MEDS: ASCORBIC ACID 500 MG TAB PO SCH (08:10)
[2023-02-01] MEDS: UMECLIDINIUM/VILANTEROL 62.5/25MCG 7 PUFFS/INHALER INH SCH (08:11)
[2023-02-01] MEDS: FLUTICASONE FUROATE 100MCG 14 PUFFS/INHALER INH SCH (08:11)
--- NOTE | 2023-02-01 08:52 | Pulmonology Progress Note ---
Date of Service February 01, 2023 Assessment & Plan (1) Pneumothorax after biopsy: (2) Lung cancer: Laterality: left Lung location: overlapping sites Qualified Code(s): C34.82 - Malignant neoplasm of overlapping sites of left bronchus and lung (3) Hypoxia: Plan --Acute hypoxic respiratory failure Etiology at presentation was large left-sided pneumothorax Etiology currently is most likely from the left lower lobe atelectasis Thing to remember is patient has severe emphysema of the upper lobes, lower part of the lungs were the one which were functioning and oxygenation and right now left lower lobe is atelectatic -- Iatrogenic pneumothorax S/p robotic bronc 01/27/2023 Status post chest tube placement in the left apex 01/29/2023 --> removed 01/31/2023 --Poorly differentiated adenocarcinoma of the lung Robotic navigational bronchoscopy 01/27/2023 revealed poorly differentiated adenocarcinoma in 2 different lung nodules. ET scan 01/15/2023 revealed PET avid nodules in the lingula and also in the left lower lobe. Pathological stage of T4/N0/M0. Clinical stage IIIa disease. Patient likely a poor candidate for surgery given poor PFTs. FEV1 03/22/2021 was 1.30 L, 44%. DLCO 63%. Outpatient PFT Plan: Patient will likely need oxygen at home Continue with incentive spirometry, I will add Mucinex to the patient's regimen Recommend Trelegy 100 on discharge Can taper prednisone over the next 5 days Please note the above document was generated using voice recognition software. It may contain grammatical, syntax or spelling errors.Any formal questions or concerns about the content, text or information contained within the body of this dictation should be directly addressed to the provider for clarification. Admission and Anticipated Discharge Date Admission Date: January 29, 2023 Subjective Patient seen and examined at bedside. No acute distress, notable symptoms overnight He was saturating 88-89% on 2 L nasal cannula at rest. He said he is feeling better. Denied any chest pain No headache, no nausea, no vomiting Using the incentive spirometry. Not bringing up any phlegm Review of Systems 2 Review of Systems: All systems reviewed & are unremarkable except as noted in Subjective Physical Exam 2 Physical Exam: Constitutional: No acute distress HEENT: EOMI, PERRLA Respiratory system: Decreased air and bilaterally, more decreased on the left lower side, no wheeze, no rhonchi, mild crackles left lower lobe CVS: S1-S2 positive, no murmurs or gallops, distant heart sounds Abdomen: Soft, nontender, nondistended, positive bowel sounds x4 Extremities: +2 pulses bilaterally radialis/ dorsalis pedis, no cyanosis, no edema Neuro: Awake alert oriented x3 Psych: Normal mood and affect G/U: No Crooks Skin: no rashes, warm and dry Lymphatic: no cervical or axillary lymphadenopathy Results & Data Results & Data Vital Signs (Past 12 Hours) Vital Signs Temp Pulse Pulse Resp BP BP Pulse Ox 02/01/23 08:21 02/01/23 08:01 37.0 C 68 18 130/75 90 02/01/23 07:08 101 H 02/01/23 06:00 02/01/23 03:00 36.7 C 60 18 118/68 90 01/31/23 23:00 36.9 C 65 15 123/76 91 01/31/23 22:01 70 01/31/23 21:42 Pulse Ox O2 Del Method O2 Del Method O2 Flow Rate O2 Flow Rate 02/01/23 08:21 Nasal Cannula 6 02/01/23 08:01 Nasal Cannula 5 02/01/23 07:08 02/01/23 06:00 89 L Nasal Cannula 1 02/01/23 03:00 Nasal Cannula 2 01/31/23 23:00 Nasal Cannula 01/31/23 22:01 01/31/23 21:42 Nasal Cannula 3 Laboratory Results 01/29/23 14:45 01/29/23 14:45 PG Care Time/CCT Total # of Minutes Spent Total Time Spent with Patient: Total time spent is greater than 50% in coordination of care (as documented) at patient's floor/unit and/or counseling patient: Coding Level of Care Code 45923 SUB INP/OBS CARE 2/35MIN Diagnoses Pneumothorax after biopsy J95.811 Malignant neoplasm of overlapping sites of left lung C34.82 Laterality: left Lung location: overlapping sites Hypoxia R09.02
[2023-02-01] MEDS ORDERED: predniSONE 20 MG TAB PO SCH (09:00)
--- NOTE | 2023-02-01 09:52 | XRay Report ---
XR chest 1V portable HISTORY: left pneumothorax, resp failure COMPARISON: Chest 01/31/2023. Chest CTA 01/31/2023. FINDINGS: The left pleural catheter has been removed. The patient's known small left anterior pneumot horax is not well visualized by this modality. Left lower lobe consolidation persists. A small left p leural effusion is again noted. The heart is normal in size. The right lung is clear. Left upper lobe nodules are better appreciated on the recent chest CT. IMPRESSION: 1. The patient's known small left anterior pneumothorax is not well visualized on this study. 2. The left pleural catheter has been removed. 3. Small left pleural effusion and left lower lobe consolidation persists. 4. The left lung nodules are better appreciated on the recent chest CTA. ACT 112: Negative or not required by law. Electronically signed by: Neil Zeng M.D. 02/01/2023 9:50 AM
--- NOTE | 2023-02-01 11:31 | Discharge Summary ---
Date of Service February 01, 2023 Admission HPI Per Admitting Provider The patient is a 78-year-old male with past medical history including newly diagnosed lung cancer, history of abdominal aortic aneurysm repair, BPH, COPD, hyperlipidemia, hypertension and tobacco abuse. He underwent a lung biopsy 2 days ago, postprocedure showed a minimal pneumothorax, but follow-up x-ray today showed a worsening pneumothorax, and patient was referred to the ED for assessment. In the emergency department patient was seen by pulmonology, who placed a chest tube, with significant decrease in size of now small pneumothorax. Patient was then referred for evaluation to [facility], with pulmonology consult to follow chest tube management Principal Diagnosis Left pneumothorax post biopsy, adenocarcinoma left lung, COPD with emphysema, acute hypoxic respiratory failure Discharge Exam General-alert and oriented x3, no fevers, no chills HEENT-head atraumatic and normocephalic, pupils equal and reactive to light, extraocular muscles intact Neck-no lymphadenopathy or thyromegaly, trachea midline Chest-diminished breath sounds bilaterally. No rales, wheezing or rhonchi Cardiac-regular rate and rhythm, normal S1 and S2 Abdomen-normal bowel sounds, nontender, no hepatosplenomegaly Extremities-no cyanosis, clubbing, or edema Neuro-cranial nerves II through XII intact, motor and sensory function within normal limits, strength symmetrical, no focal deficits Psych-normal affect, normal mood Discharge Data Allergies Allergy/AdvReac Type Severity Reaction Status Date / Time JUAN R Inhibitors AdvReac Intermediate hyperkalemi Verified 01/29/23 14:50 a Consultations 01/29/23 15:37 ED Decision to Admit Stat Ordered Studies 01/31/23 10:35 MRI Brain [MR brain wo/w con] Urgent 01/31/23 14:34 CT angio chest PE protocol Stat Hospital Course (1) Pneumothorax after biopsy: Large left pneumothorax developed after outpatient lung biopsy procedure. He is status post left-sided chest tube. Pneumothorax has now resolved. Pulmonology consultation and recommendations appreciated. Consult pulmonology appreciated--> CTA Chest performed 01/31 for persistent hypoxemia requiring 6LNC--> shows LLL collapse but no PE Add incentive spirometry and ordered ambulation tid -Wean O2 as able and will need 2 step walk test prior to discharge (2) Hypoxia: Acute hypoxic respiratory failure diagnosed. Two-step has been completed. He will need 6 L oxygen with ambulation and 2 L at rest per nasal cannula. Chest CTA negative for PE. 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 This will be addressed further as an outpatient. Brain MRI scan negative for metastatic disease. He will follow-up as an outpatient with oncology. (4) Chronic obstructive pulmonary disease: With emphysema. Continue usual inhalers. He is now on oral prednisone therapy (5) Hyperlipidemia: Stable. Continue statin therapy (6) Hypertension: Stable. Continue amlodipine Plan Home today, February 01, on continuous oxygen along with prednisone. Follow-up with PCP and oncology as directed Total Time Total Time Spent Total Time Spent (In Minutes): 45-minute Discharge Plan Discharge Items Patient Disposition: Home - Self-Care Reason For Visit: PNEUMOTHORAX Discharge Diagnosis: Left pneumothorax status post biopsy procedure, poorly differentiated adenocarcinoma left lung, acute hypoxic respiratory failure Condition on Discharge: Fair Activity: Resume your previous activity Non-emergency contact: Primary Care Provider, Oncologist and Medical Billing Assistant Call non-emergency contact if: you have any medication questions and your symptoms worsen Follow-up/Referrals: Efrem Estevez DO [Primary Care Provider] - Diet: Regular and Heart Healthy Addtl Attending Provider Instructions: Wear oxygen at all times, 6 L/min with activity and 2 L/min at rest. Continue prednisone 40 mg daily. Follow-up with primary care physician and oncology as directed Pending Studies at Discharge: No Stand-Alone Forms: [employer], Smoking Cessation Medications and DC Order Prescriptions: New prednisone 20 mg tablet 40 mg PO DAILY Qty: 60 0RF Continued atorvastatin [Lipitor] 20 mg tablet 20 mg PO PM 90 Days Qty: 90 3RF Trelegy Ellipta 100-62.5-25 mcg blister with device 1 inh inhalation DAILY PRN (Reason: sob) aspirin [Adult Aspirin Regimen] 81 mg tablet,delayed release (DR/EC) 81 mg PO QAM ascorbate calcium (vitamin C) 500 mg tablet 500 mg PO QAM vitamin E succinate 400 unit tablet 400 units PO QAM albuterol sulfate 90 mcg/actuation HFA aerosol inhaler 2 inh inhalation QID PRN (Reason: shortness of breath or wheezing) Qty: 8.5 1RF amlodipine 5 mg tablet 5 mg PO QPM cholecalciferol (vitamin D3) [Vitamin D3] 50 mcg (2,000 unit) Capsule 50 mcg PO QPM Discharge Orders: Discharge Order (Routine); Ordered 02/01/23 Ordered By: Sánchez Deleon Admission Data Admit Date/Time: 01/29/23 16:26 Attending Provider: Sánchez Deleon Admit Provider: Joel Benitez Primary Care Provider: Efrem Estevez Other Providers: Joel Benitez Coding Level of Care Code 35549 INP/OBS DISCH >30 MIN Diagnoses Pneumothorax after biopsy J95.811 Hypoxia R09.02 Malignant neoplasm of overlapping sites of left lung C34.82 Laterality: left Lung location: overlapping sites Centrilobular emphysema J43.2 COPD type: emphysema Emphysema type: centrilobular Hyperlipidemia E78.5 Hypertension I10
== END 2023-02-01 16:48 | disposition home or self-care (01) ==
LOC: ED 14:15 → 2S 14:15 → SUATTDRO 16:26 → 2S 17:50

== ENCOUNTER 2023-04-21 14:39 | Inpatient (IN) ==
--- NOTE | 2023-04-21 15:10 | Emergency Department Note ---
Impression & Plan Pneumonia, Hypoxia, Sepsis, Fever and neutropenia, Acute hypotension, ABHISHEK (acute kidney injury) ED Provider Note NAME: COLT BRAVO AGE: 78 SEX: M : 1945 ARRIVES VIA: Walk-In INFORMANT: Patient, ED PROVIDER(S): Kyler Main DO CHIEF COMPLAINT: Fever HPI: The patient is a 78-year-old male who presented to the emergency department for an evaluation of difficulty breathing. The patient went to his cancer appointment today. He was promptly sent to the emergency department because of fever tachycardia and hypoxia. The patient has a history of tobacco use but quit a few months ago. He is currently being treated for lung cancer. He did have a fever as high as 103 degrees. He denies having any dysuria or frequency. He denies having any abdominal pain or chest pain but he does complain of significant cough which is productive. He is been around no sick contacts as far as he knows. He has been compliant with outpatient medications otherwise. ROS: See above HPI for pertinent positives & negatives. A total of 10 systems reviewed and were otherwise negative. PAST MEDICAL HISTORY: See Below PAST SURGICAL HISTORY: See Below FAMILY HISTORY: See Below SOCIAL HISTORY: See Below HOME MEDICATIONS: See Below ALLERGIES: See Below VITALS: See Below PHYSICAL EXAMINATION: GENERAL: The patient is awake and alert. He is somewhat anxious appearing. EYES: The conjunctivae are clear. The pupils are round and reactive. EARS, NOSE, MOUTH AND THROAT: The nose is without any evidence of any deformity. NECK: The neck is nontender and supple. RESPIRATORY: Diminished breath sounds are noted throughout. There were scattered rhonchi both upper lung bonner. There is significant conversational dyspnea. CARDIOVASCULAR: Tachycardic and regular heart sounds were noted to auscultation. There is no definite murmur. GASTROINTESTINAL: The abdomen is soft. Abdomen is nontender. MUSCULOSKELETAL/EXTREMITIES: There is no evidence of gross deformity full range of motion is noted in the hips and shoulders. SKIN: There is no obvious evidence of any rash. Pedal edema was noted bilaterally. NEUROLOGIC: Patient is awake alert and oriented x3 MEDICAL DECISION MAKING: The patient is a 78-year-old male who presented to the emergency department from the [place] for an evaluation of difficulty breathing cough and fever. The patient has a history of lung cancer. He recently received chemotherapy. He was found to be neutropenic. He was treated with IV cefepime in the emergency department. Chest x-ray appears to be consistent with pneumonia. I discussed the patient's laboratory and radiographic studies with him. He was found to have a lactic acidosis. He was treated with multiple fluid boluses. He was reevaluated multiple times. I discussed his condition with the on-call [facility] hospitalist. He was also treated with a DuoNeb. He was feeling somewhat improved on reevaluation. Vital signs still reveal hypotension. Triage Nursing notes reviewed. Prior medical records reviewed Vital Signs: reviewed and remarkable for tachycardia and hypotension. Differential diagnosis: Viral syndrome, otitis, pharyngitis, pneumonia, influenza, meningitis, urinary tract infection, sepsis, bacteremia, as well as other pathologies. ER treatment provided: See below Diagnostics interpreted by me: ECG: EKG was obtained in the emergency department. My interpretation is sinus tachycardia at 133 bpm. There is no ectopy. Nonspecific ST segment abnormalities were noted. This was compared to a tracing from January 29, 2023. There is an increase in rate otherwise no specific changes were noted. Cardiac Monitoring: An order was placed for continuous cardiac monitoring. The monitor shows a rate of 139 bpm with sinus tachycardia. Laboratory studies: As stated above and show below. Imaging studies: See below. Radiographic imaging was reviewed by myself Consultation(s): I discussed this case with Dr. Rivers who is on-call for the [facility]ist group. ED COURSE: Procedures: none Critical Care: I have personally spent greater than 45 minutes of critical care time in the direct management of this patient. This includes bedside care, interpretation of diagnostic studies, and testing, discussion with consultants, patient, and family members, and other required patient management activities. This 45 minutes is in excess of all separately billable procedures. Past Med/Surg History Medical History Chronic obstructive pulmonary disease Lower extremity edema BPH (benign prostatic hyperplasia) Hyperlipidemia Lung cancer Abdominal aortic aneurysm s/p repair 2015 Multiple pulmonary nodules determined by computed tomography of lung BPH (benign prostatic hyperplasia) Kidney stones hx PVC (premature ventricular contraction) on occasion Hypertension Diverticulosis Hyperlipemia COPD (chronic obstructive pulmonary disease) well controlled per pt > no res inh use Surgical History History of aortic aneurysm repair endovascular > [facility] [place] > 2016 > follows with [facility] cardiology. Has to go for scan on 02/06/23 to check for "leak around the stent" as evidence of size increase per recent ultrasound [facility]. History of cataract surgery bilat History of tooth extraction dental implants History of lithotripsy History of inguinal hernia repair left x 1, right x 2. H/O colonoscopy 07/2020 repeat 5 years Family History Father Colon cancer Colorectal cancer Family/Other Heart disease Hypertension Mother Stroke Denies family history of Ovarian cancer Prostate cancer Myocardial infarction Breast cancer Social History Smoking Status: Former smoker Tobacco Type: Cigarettes Age Started Using Tobacco: 32; packs per day: 0.5; Cigarettes Per Day: 10 cigs per day; Second Hand Exposure: No; Do You Dip or Chew Tobacco: No; Hx Alcohol Use: No Hx Substance Use: No Preferred Language: Croatian Communication Ability: Effective Visual Impairment: Limited Hearing Ability: Normal Wet Process [place] Required: No Beliefs That Will Affect Care: None marital status: Current Living Situation: Spouse Current Living Situation Comment: lives with current occupational 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 How many Children do You have: 1 Feels Safe at Home: Yes Childhood Exposure to Second-Hand Smoke: No caffeine: Yes Dental Care, Regularly: Yes Physical Activity Frequency: Does not Exercise Seatbelt Use: always Sunscreen Use: Yes Assistive Devices: None Allergies Allergies Allergy/AdvReac Type Severity Reaction Status Date / Time JUAN R Inhibitors AdvReac Intermediate hyperkalemi Verified 04/20/23 09:32 a Home Meds Home Medications Medication Instructions Recorded Confirmed ascorbate calcium (vitamin C) 500 500 mg PO QAM 09/23/18 04/21/23 mg tablet aspirin 81 mg tablet,delayed 81 mg PO QAM 09/23/18 04/21/23 release (Adult Aspirin Regimen) vitamin E succinate 268 mg (400 400 units PO QAM 11/30/18 04/21/23 unit) tablet amlodipine 5 mg tablet 5 mg PO QPM 01/20/23 04/21/23 cholecalciferol (vitamin D3) 50 50 mcg PO QPM 01/20/23 04/21/23 mcg (2,000 unit) capsule (Vitamin D3) prochlorperazine maleate 10 mg 10 mg PO Q8H PRN Nausea 03/18/23 04/21/23 tablet (Compazine) dexamethasone 4 mg tablet 4 mg PO UD 04/21/23 04/21/23 ondansetron 8 mg disintegrating 8 mg PO Q8 PRN Nausea And Vomiting 04/21/23 04/21/23 tablet Previous Rx's Medication Instructions Recorded albuterol sulfate 90 mcg/actuation 2 inh inhalation QID PRN shortness 12/19/20 aerosol inhaler of breath or wheezing #8.5 grams atorvastatin 20 mg tablet (Lipitor) 20 mg PO PM 90 days #90 tabs 06/24/22 fluticasone fur. 100 mcg-umeclid 1 inh inhalation DAILY #60 ea 03/31/23 62.5 mcg-vilant 25 mcg inhalat.powder (Trelegy Ellipta) furosemide 20 mg tablet (Lasix) 20 mg PO Q OTHER DAY #30 tabs 03/31/23 Oxygen Home E0424 #1 L 04/08/23 Results & Data (ED) Vital Signs Vital Signs - 24 hr 04/21/23 14:44 04/21/23 14:44 04/21/23 15:05 Temperature 37.1 C Temperature Source Temporal Artery Scan Pulse Rate 137 H Pulse Rate [Right Finger] Pulse Rate from SpO2 Sensor Pulse Rhythm Respiratory Rate 20 Respiratory Effort / Characteristics Non-Labored Spontaneous Respiratory Depth Normal Blood Pressure 77/46 L Blood Pressure [Right Arm] Blood Pressure Mean 56 Blood Pressure Mean [Right Arm] Blood Pressure Position Sitting Pulse Oximetry 86 L 92 Oxygen Delivery Method Nasal Cannula Nasal Cannula Oxymask Oxygen Flow Rate 4 6 5 Sepsis Recent Fever Within 48 Hours No Sepsis New/Unexplained Change in Mental Status No Sepsis Action Taken by Nursing No Action Required 04/21/23 15:05 04/21/23 15:09 04/21/23 15:21 Temperature Temperature Source Pulse Rate 126 H 133 H Pulse Rate [Right Finger] 129 H Pulse Rate from SpO2 Sensor 133 H Pulse Rhythm Regular Respiratory Rate 24 24 22 Respiratory Effort / Characteristics Respiratory Depth Blood Pressure 89/64 L Blood Pressure [Right Arm] 76/59 L Blood Pressure Mean 72 Blood Pressure Mean [Right Arm] 64 Blood Pressure Position Pulse Oximetry 92 91 93 Oxygen Delivery Method Oxymask Oxymask Oxygen Flow Rate 5 5 Sepsis Recent Fever Within 48 Hours Sepsis New/Unexplained Change in Mental Status Sepsis Action Taken by Nursing 04/21/23 15:44 04/21/23 15:50 04/21/23 16:50 Temperature Temperature Source Pulse Rate 135 H 126 H 139 H Pulse Rate [Right Finger] Pulse Rate from SpO2 Sensor 135 H 138 H Pulse Rhythm Respiratory Rate 26 H 30 H Respiratory Effort / Characteristics Respiratory Depth Blood Pressure 85/57 L 97/62 L Blood Pressure [Right Arm] Blood Pressure Mean 66 73 Blood Pressure Mean [Right Arm] Blood Pressure Position Pulse Oximetry 90 95 Oxygen Delivery Method Oxygen Flow Rate Sepsis Recent Fever Within 48 Hours Sepsis New/Unexplained Change in Mental Status Sepsis Action Taken by Prison Medications Current Medication List: was personally reviewed by me Laboratory Data Attestation: I reviewed the patient's lab results. 04/21/23 14:59 04/21/23 14:59 Lab Results 04/21/23 04/21/23 04/21/23 Range/Units 14:09 14:55 14:59 WBC 0.62 L* (4.8-10.8) K/ul RBC 3.73 L (4.70-6.10) M/uL Hgb 11.6 L (14.0-18.0) g/dl Hct 35.2 L (42.0-52.0) % MCV 94.4 (80.0-100.0) fL MCH 31.1 (25.0-34.0) pg MCHC 33.0 (32.0-36.0) g/dL RDW Std Deviation 48.4 H (36.4-46.3) fL RDW Coeff of Fany 14.4 (11.5-14.5) % Plt Count 206 (130-400) K/uL MPV 9.6 (9.4-12.4) fL Immature Gran % (Auto) 1.6 % Neut % (Auto) 87.1 % Lymph % (Auto) 8.1 % [place] % (Auto) 3.2 % Eos % (Auto) 0.0 % Baso % (Auto) 0.0 % Neut # (Auto) 0.54 L* (1.40-6.50) K/uL Lymph # (Auto) 0.05 L (1.20-3.40) K/uL [place] # (Auto) 0.02 L (0.11-0.59) K/uL Eos # (Auto) 0.00 (0.00-0.50) K/uL Baso # (Auto) 0.00 (0.00-0.20) K/uL Immature Gran # (Auto) 0.01 (0.01-0.20) K/uL Hyposegmented Neuts 2+ PT 11.4 (9.0-12.0) Seconds INR 1.0 (0.9-1.1) APTT 25 (21-31) Seconds PTT Ratio 0.9 VBG pH (7.36-7.41) VBG pCO2 (38-50) mmHg VBG pO2 mmHg VBG HCO3 mmol/L VBG O2 Saturation % VBG Base Excess mEq/L Sodium 133 L (136-145) mmol/L Potassium 4.0 D (3.5-5.1) mmol/L Chloride 99 (98-107) mmol/L Carbon Dioxide 24 (21-32) mmol/L Anion Gap 10 (3-11) BUN 40 H (6-23) mg/dl Creatinine 1.90 H D (0.6-1.4) mg/dl Est Cr Clr Drug Dosing 30.9 ml/min Est GFR ( Amer) 38.8 ml/min Est GFR (Non-Af Amer) 33.5 ml/min BUN/Creatinine Ratio 21.1 H (10-20) Glucose 139 H (70-99(Fasting)) mg/dl Lactate 4.0 H* (0.4-2.0) mmol/L Calcium 8.0 L (8.6-10.3) mg/dl Magnesium 1.3 L (1.7-2.4) mg/dl Total Bilirubin 0.8 (0.2-1.0) mg/dl AST 17 (13-39) U/L ALT 20 (7-52) U/L Alkaline Phosphatase 36 (34-104) U/L Troponin I High Sens 24.8 H (0-20) pg/ml Total Protein 6.0 (6.0-8.3) gm/dl Albumin 3.7 (3.4-5.0) gm/dl Globulin 2.3 L (2.5-4.0) gm/dl Albumin/Globulin Ratio 1.6 (0.9-2) Procalcitonin 24.90 H (0-0.5) ng/ml Urine Color Urine Appearance (Clear) Urine pH (4.5-7.5) Ur Specific [place] (1.000-1.030) Urine Protein (Negative) Urine Glucose (UA) (Negative) Urine Ketones (Negative) Urine Blood (Negative) Urine Nitrite (Negative) Urine Bilirubin (Negative) Urine Urobilinogen (Negative) Ur Leukocyte Esterase (Negative) Urine WBC (Auto) (0-5) /hpf Urine RBC (Auto) (0-4) /hpf U Hyaline Cast (Auto) (0-5) /lpf U Epithel Cells (Auto) (0-5) /lpf Urine Bacteria (Auto) (Negative) Adenovirus (PCR) Not Detected (NotDetected) B. pertussis DNA (PCR) Not Detected (NotDetected) B.parapertussis DNA PCR Not Detected (NotDetected) C. pneumoniae DNA (PCR) Not Detected (NotDetected) Coronavirus OC43 (PCR) Not Detected (NotDetected) Coronavirus HKU1 (PCR) Not Detected (NotDetected) Coronavirus 229E (PCR) Not Detected (NotDetected) SARS-CoV-2 (PCR) Not Detected (NotDetected) Coronavirus NL63 (PCR) Not Detected (NotDetected) Human Metapneumovir PCR Not Detected (NotDetected) Influenza Type A (PCR) Not Detected (NotDetected) Influenza Type B (PCR) Not Detected (NotDetected) M. pneumoniae (PCR) Not Detected (NotDetected) Parainfluenza 1 (PCR) Not Detected (NotDetected) Parainfluenza 2 (PCR) Not Detected (NotDetected) Parainfluenza 3 (PCR) Not Detected (NotDetected) Parainfluenza 4 (PCR) Not Detected (NotDetected) RSV (PCR) Not Detected (NotDetected) Entero/Rhino (PCR) Not Detected (NotDetected) 04/21/23 04/21/23 Range/Units 15:43 16:27 WBC (4.8-10.8) K/ul RBC (4.70-6.10) M/uL Hgb (14.0-18.0) g/dl Hct (42.0-52.0) % MCV (80.0-100.0) fL MCH (25.0-34.0) pg MCHC (32.0-36.0) g/dL RDW Std Deviation (36.4-46.3) fL RDW Coeff of Fany (11.5-14.5) % Plt Count (130-400) K/uL MPV (9.4-12.4) fL Immature Gran % (Auto) % Neut % (Auto) % Lymph % (Auto) % [place] % (Auto) % Eos % (Auto) % Baso % (Auto) % Neut # (Auto) (1.40-6.50) K/uL Lymph # (Auto) (1.20-3.40) K/uL [place] # (Auto) (0.11-0.59) K/uL Eos # (Auto) (0.00-0.50) K/uL Baso # (Auto) (0.00-0.20) K/uL Immature Gran # (Auto) (0.01-0.20) K/uL Hyposegmented Neuts PT (9.0-12.0) Seconds INR (0.9-1.1) APTT (21-31) Seconds PTT Ratio VBG pH 7.28 L (7.36-7.41) VBG pCO2 50 (38-50) mmHg VBG pO2 21 mmHg VBG HCO3 24 mmol/L VBG O2 Saturation < 60.0 % VBG Base Excess -3.7 mEq/L Sodium (136-145) mmol/L Potassium (3.5-5.1) mmol/L Chloride (98-107) mmol/L Carbon Dioxide (21-32) mmol/L Anion Gap (3-11) BUN (6-23) mg/dl Creatinine (0.6-1.4) mg/dl Est Cr Clr Drug Dosing ml/min Est GFR ( Amer) ml/min Est GFR (Non-Af Amer) ml/min BUN/Creatinine Ratio (10-20) Glucose (70-99(Fasting)) mg/dl Lactate (0.4-2.0) mmol/L Calcium (8.6-10.3) mg/dl Magnesium (1.7-2.4) mg/dl Total Bilirubin (0.2-1.0) mg/dl AST (13-39) U/L ALT (7-52) U/L Alkaline Phosphatase (34-104) U/L Troponin I High Sens (0-20) pg/ml Total Protein (6.0-8.3) gm/dl Albumin (3.4-5.0) gm/dl Globulin (2.5-4.0) gm/dl Albumin/Globulin Ratio (0.9-2) Procalcitonin (0-0.5) ng/ml Urine Color [place] Urine Appearance Clear (Clear) Urine pH 5.5 (4.5-7.5) Ur Specific [place] 1.012 (1.000-1.030) Urine Protein Trace H (Negative) Urine Glucose (UA) Negative (Negative) Urine Ketones Negative (Negative) Urine Blood Negative (Negative) Urine Nitrite Negative (Negative) Urine Bilirubin Negative (Negative) Urine Urobilinogen Negative (Negative) Ur Leukocyte Esterase Negative (Negative) Urine WBC (Auto) 1-5 (0-5) /hpf Urine RBC (Auto) 5-10 H (0-4) /hpf U Hyaline Cast (Auto) 1-5 (0-5) /lpf U Epithel Cells (Auto) 5-10 H (0-5) /lpf Urine Bacteria (Auto) Negative (Negative) Adenovirus (PCR) (NotDetected) B. pertussis DNA (PCR) (NotDetected) B.parapertussis DNA PCR (NotDetected) C. pneumoniae DNA (PCR) (NotDetected) Coronavirus OC43 (PCR) (NotDetected) Coronavirus HKU1 (PCR) (NotDetected) Coronavirus 229E (PCR) (NotDetected) SARS-CoV-2 (PCR) (NotDetected) Coronavirus NL63 (PCR) (NotDetected) Human Metapneumovir PCR (NotDetected) Influenza Type A (PCR) (NotDetected) Influenza Type B (PCR) (NotDetected) M. pneumoniae (PCR) (NotDetected) Parainfluenza 1 (PCR) (NotDetected) Parainfluenza 2 (PCR) (NotDetected) Parainfluenza 3 (PCR) (NotDetected) Parainfluenza 4 (PCR) (NotDetected) RSV (PCR) (NotDetected) Entero/Rhino (PCR) (NotDetected) Administered Medications Discontinued Medications Albuterol (Albut/Ipratrop 3mg/0.5mg Neb 3 Ml Vial) 12 ml NEB ONE ONE; Protocol Stop: 04/21/23 14:59 Last Admin: 04/21/23 15:15 Dose: 12 ml Documented By: ANNA Sodium Chloride (Nss) 1,000 mls @ 999 mls/hr IV .Q1H1M ONE Stop: 04/21/23 15:54 Last Infusion: 04/21/23 16:27 Dose: Infused Documented By: Admin: 04/21/23 15:16 Dose: 999 mls/hr Documented By: ANNA Cefepime HCl (Maxipime) 2,000 mg in 20 mls @ 5 mls/min IV NOW STA; Protocol Stop: 04/21/23 14:57 Last Admin: 04/21/23 15:15 Dose: 5 mls/min Documented By: ANNA Sodium Chloride (Nss) 1,000 mls @ 999 mls/hr IV .Q1H1M ONE Stop: 04/21/23 16:34 Last Infusion: 04/21/23 16:52 Dose: Infused Documented By: Admin: 04/21/23 15:43 Dose: 999 mls/hr Documented By: ANNA Sodium Chloride (Nss) 1,000 mls @ 999 mls/hr IV .Q1H1M ONE Stop: 04/21/23 16:51 Last Infusion: 04/21/23 16:52 Dose: 0 mls/hr Documented By: Admin: 04/21/23 16:04 Dose: 999 mls/hr Documented By: ANNA Imaging Data Attestation: I personally reviewed and interpreted this imaging study as follows: My Impression: 1 view chest x-ray was obtained in the emergency department. My interpretation is bilateral lower lobe infiltrates, final report below. Radiologist's Impression: Chest X-Ray 04/21/23 14:50 XR chest 1V portable HISTORY: Sepsis COMPARISON: Chest 04/21/2023. FINDINGS: No pneumothorax. The heart is normal in size. Patchy bilateral mid to lower lung zone airspace opacities are again noted. These are similar to the prior study. Suspect a trace left pleural effusion. No acute fractures identified. IMPRESSION: 1. No significant change in the patchy bilateral mid to lower lung zone airspace opacities likely representing a pneumonia. 2. Trace left pleural effusion. ACT 112: Negative or not required by law. Electronically signed by: Neil Zegn M.D. 04/21/2023 3:46 PM Discharge Plan Visit Data Chief Complaint: Tachycardia Stated Complaint: LOW O2, TACHYCARDIA, [facility]F [facility] Provider: Kyler Main Discharge Problem: Pneumonia, Hypoxia, Sepsis, Fever and neutropenia, Acute hypotension, ABHISHEK (acute kidney injury) Patient Disposition: Being Evaluated by Hospitalist Forms Stand Alone Forms: My [employer] Prescriptions Prescriptions: No Action prochlorperazine maleate [Compazine] 10 mg tablet 10 mg PO Q8H PRN (Reason: Nausea) atorvastatin [Lipitor] 20 mg tablet 20 mg PO PM 90 Days Qty: 90 3RF (DME) Oxygen Home E0424 Liters Per Minute See Rx Instructions .ROUTE .MEDSUPPLY Qty: 1 0RF Rx Instructions: 1 l o2 via nc with exertion Trelegy Ellipta 100-62.5-25 mcg blister with device 1 inh inhalation DAILY Qty: 60 2RF furosemide [Lasix] 20 mg tablet 20 mg PO Q OTHER DAY Qty: 30 1RF aspirin [Adult Aspirin Regimen] 81 mg tablet,delayed release (DR/EC) 81 mg PO QAM ascorbate calcium (vitamin C) 500 mg tablet 500 mg PO QAM vitamin E succinate 400 unit tablet 400 units PO QAM albuterol sulfate 90 mcg/actuation HFA aerosol inhaler 2 inh inhalation QID PRN (Reason: shortness of breath or wheezing) Qty: 8.5 1RF amlodipine 5 mg tablet 5 mg PO QPM cholecalciferol (vitamin D3) [Vitamin D3] 50 mcg (2,000 unit) Capsule 50 mcg PO QPM ondansetron 8 mg tablet,disintegrating 8 mg PO Q8 PRN (Reason: Nausea And Vomiting) dexamethasone 4 mg tablet 4 mg PO UD Rx Instructions: as directed prior to chemotherapy Referrals Referrals: Efrem Estevez DO [Primary Care Provider] - Discharge Problem: Pneumonia Qualifiers: Pneumonia type: due to unspecified organism Laterality: bilateral Lung location: lower lobe of lung Qualified Code(s): J18.9 - Pneumonia, unspecified organism Sepsis Qualifiers: Sepsis type: sepsis due to unspecified organism Sepsis acute organ dysfunction status: unspecified Qualified Code(s): A41.9 - Sepsis, unspecified organism
[2023-04-21] MEDS: ALBUT/IPRATROP 3MG/0.5MG NEB 3 ML VIAL NEB ONE (15:15)
[2023-04-21] MEDS: CEFEPIME 2,000 MG/20 ML VIAL IV STA (15:15)
[2023-04-21] MEDS: SODIUM CHLORIDE 0.9% 1,000 ML IV ONE ×3 (15:16→16:04)
[2023-04-21 15:35] LABS: Hematocrit (blood only) 35.2 % (42.0-52.0); Hemoglobin 11.6 g/dl (14.0-18.0); Mean Corpuscular Hemoglobin 31.1 pg (25.0-34.0); Mean Corpuscular Volume 94.4 fL (80.0-100.0); Mean Platelet Volume 9.6 fL (9.4-12.4); Platelet Count 206 K/uL (130-400); RDW Coefficient of Variation 14.4 % (11.5-14.5); RDW Standard Deviation 48.4 fL (36.4-46.3); Red Blood Count 3.73 M/uL (4.70-6.10); White Blood Count 0.62 K/ul (4.8-10.8)
[2023-04-21 15:44] LABS: Albumin Globulin Ratio 1.6 (0.9-2); Albumin Level 3.7 gm/dl (3.4-5.0); BUN Creatinine Ratio 21.1 (10-20); Bilirubin,Total 0.8 mg/dl (0.2-1.0); Creatinine Clr Calc Pharmacy 30.9 ml/min; Est GFR (African American) 38.8 ml/min; Est GFR (Non-African American) 33.5 ml/min; Globulin 2.3 gm/dl (2.5-4.0); Magnesium 1.3 mg/dl (1.7-2.4); Troponin I High Sensitivity 24.8 pg/ml (0-20)
[2023-04-21 15:46] LABS: Partial Thromboplastin Ratio 0.9; Partial Thromboplastin Time 25 Seconds (21-31); Prothrombin Time 11.4 Seconds (9.0-12.0)
--- NOTE | 2023-04-21 15:47 | XRay Report ---
XR chest 1V portable HISTORY: Sepsis COMPARISON: Chest 04/21/2023. FINDINGS: No pneumothorax. The heart is normal in size. Patchy bilateral mid to lower lung zone airsp elsa opacities are again noted. These are similar to the prior study. Suspect a trace left pleural eff usion. No acute fractures identified. IMPRESSION: 1. No significant change in the patchy bilateral mid to lower lung zone airspace opacities likely rep resenting a pneumonia. 2. Trace left pleural effusion. ACT 112: Negative or not required by law. Electronically signed by: Neil Zeng M.D. 04/21/2023 3:46 PM
[2023-04-21 15:54] LABS: Immature Granulocytes # (auto) 0.01 K/uL (0.01-0.20); Immature Granulocytes % (auto) 1.6 %; Lymphocytes # (auto) 0.05 K/uL (1.20-3.40); Lymphocytes % (auto) 8.1 %; Monocytes # (auto) 0.02 K/uL (0.11-0.59); Monocytes % (auto) 3.2 %; Neutrophils # (auto) 0.54 K/uL (1.40-6.50); Neutrophils % (auto) 87.1 %
[2023-04-21 15:55] LABS: Base Excess VBG -3.7 mEq/L; HCO3 VBG 24 mmol/L; Oxygen Saturation VBG < 60.0 %; PCO2 VBG 50 mmHg (38-50); PO2 VBG 21 mmHg; pH VBG 7.28 (7.36-7.41)
[2023-04-21 16:14] LABS: Adenovirus PCR Not Detected (NotDetected); Bordetella parapertussis PCR Not Detected (NotDetected); Bordetella pertussis PCR Not Detected (NotDetected); Chlamydia pneumoniae PCR Not Detected (NotDetected); Coronavirus 229E PCR Not Detected (NotDetected); Coronavirus CoV-2 (COVID19)PCR Not Detected (NotDetected); Coronavirus HKU1 PCR Not Detected (NotDetected); Coronavirus NL63 PCR Not Detected (NotDetected); Coronavirus OC43PCR Not Detected (NotDetected); Human Metapneumovirus PCR Not Detected (NotDetected); Influenza A PCR Not Detected (NotDetected); Influenza B PCR Not Detected (NotDetected); Mycoplasma pneumoniae PCR Not Detected (NotDetected); Parainfluenza Virus 1 PCR Not Detected (NotDetected); Parainfluenza Virus 2 PCR Not Detected (NotDetected); Parainfluenza Virus 3 PCR Not Detected (NotDetected); Parainfluenza Virus 4 PCR Not Detected (NotDetected); Respiratory Syncytial VirusPCR Not Detected (NotDetected); Rhinovirus/Enterovirus PCR Not Detected (NotDetected)
[2023-04-21] MEDS ORDERED: VANCOMYCIN CONSULT ACTIVE PRN (16:28)
--- NOTE | 2023-04-21 16:38 | History & Physical Report ---
Date of Service April 21, 2023 Assessment & Plan (1) Sepsis: Plan: Acute on chronic hypoxic respiratory failure Multifactorial with history of COPD, lung cancer, and sepsis Sepsis Suspect pulmonary source With productive cough, new, and suspected bilateral lower lobe airspace opacities. Patient has had 1 day of fever chills and sweats. No abdominal or urinary symptoms Blood cultures drawn. Sputum culture ordered 30 cc/kg fluid bolus 2334 cc met, patient ordered for 3 L NSS at time of hospitalist consultation. Remains hypotensive. Repeat lactate ordered. Random cortisol ordered. Patient has been on dexamethasone on Thursday/Mondays, is at risk for secondary AI. Secondary underlying COPD history. Methylprednisolone 125 mg x 1 followed by 40 mg twice daily ordered - increased risk due to undergoing chemotherapy neutropenia. Antibiotics expa nded on admission to include MRSA and atypical coverage. Wean based on MRSA nare and sputum if positive Patient completed 2000 cc of resuscitation at time of consultation. Repeat lactate, remaining sepsis bolus switch to Plasma-Lyte, and cortisol ordered at time of consultation -VB.2 / (2) Adenocarcinoma of left lung, stage 3: Plan: - Started chemoradiation 3 weeks ago, has not received Neupogen/Neulasta (3) Neutropenia: Plan: Neutropenia With chemotherapy. Oncology consulted Neutropenic precautions. Broad antibiotics as above (4) Chronic obstructive pulmonary disease: Plan: COPD Continue home inhaler Titrate oxygen to SpO2 89% With acute exacerbation in the setting of sepsis? Pneumonia Covered with antibiotics as above Steroids as above Incentive spirometry, flutter valve (5) Hypoxia: (6) Elevated troponin: Plan: Troponin elevation No chest pain at any point, suspect demand Trended (7) ABHISHEK (acute kidney injury): Plan: ABHISHEK Prerenal due to sepsis, creatinine baseline 1.3 elevated on admission to 1.9 Fluids as noted Trend daily, renally adjust medications (8) Afib: Plan: On reassessment patient in new A-fib, no prior history of this. Rates [id number]. Discussed with ICU, placed on adjunct amiodarone. Low dose heparin for stroke prophylaxis History of Present Illness Primary Care Provider: Efrem Estevez DO Galloway is a 78-year-old male with past medical history of past medical history of metastatic lung adenocarcinoma was not a good surgical candidate due to underlying COPD recently on chemo/radiation, COPD, pneumothorax postbiopsy subsequently resolved, and chronic hypoxia on 1 L oxygen baseline who presents from the ER with fever, tachycardia, and hypoxia and temperature of 103 on admission. No chest pain or chest pressure, patient has a productive cough. No history of CHF No belly pain No dysuria No chest pain, no chest pressure +SOB today, improved with breathing tx. Uses 1L o2 at home, increased to 2L this morning No history of afib or abnormal heart rhythms denies hx of NH. Hx anesurysm repair 7 years ago, stable on reassessment. Was performed at [facility] [place] chemo 1x/week and radiation 5 day sper week started 3 weeks ago Did not get radiation today Gets chemo mondays. No port Medical History: Reviewed Medications: Reviewed. Allergic to JUAN R inhibitors (hyperkalemia) Surgical History: Reviewed Family history: Reviewed Allergies: Reviewed Social History: Former tobacco use in remission. no etoh Code Status: Full Code Allergies Allergy/AdvReac Type Severity Reaction Status Date / Time JUAN R Inhibitors AdvReac Intermediate hyperkalemi Verified 04/20/23 09:32 a Home Medications Medication Instructions Recorded Confirmed Type ascorbate calcium (vitamin C) 500 500 mg PO QAM 09/23/18 04/21/23 History mg tablet aspirin 81 mg tablet,delayed 81 mg PO QAM 09/23/18 04/21/23 History release (Adult Aspirin Regimen) vitamin E succinate 268 mg (400 400 units PO QAM 11/30/18 04/21/23 History unit) tablet albuterol sulfate 90 mcg/actuation 2 inh inhalation QID PRN shortness 12/19/20 04/21/23 Rx aerosol inhaler of breath or wheezing #8.5 grams atorvastatin 20 mg tablet (Lipitor) 20 mg PO PM 90 days #90 tabs 06/24/22 04/21/23 Rx amlodipine 5 mg tablet 5 mg PO QPM 01/20/23 04/21/23 History cholecalciferol (vitamin D3) 50 50 mcg PO QPM 01/20/23 04/21/23 History mcg (2,000 unit) capsule (Vitamin D3) prochlorperazine maleate 10 mg 10 mg PO Q8H PRN Nausea 03/18/23 04/21/23 History tablet (Compazine) fluticasone fur. 100 mcg-umeclid 1 inh inhalation DAILY #60 ea 03/31/23 04/21/23 Rx 62.5 mcg-vilant 25 mcg inhalat.powder (Trelegy Ellipta) furosemide 20 mg tablet (Lasix) 20 mg PO Q OTHER DAY #30 tabs 03/31/23 04/21/23 Rx Oxygen Home E0424 #1 L 04/08/23 04/21/23 Rx dexamethasone 4 mg tablet 4 mg PO UD 04/21/23 04/21/23 History ondansetron 8 mg disintegrating 8 mg PO Q8 PRN Nausea And Vomiting 04/21/23 04/21/23 History tablet Past Med/Surg History Medical History Chronic obstructive pulmonary disease Lower extremity edema BPH (benign prostatic hyperplasia) Hyperlipidemia Lung cancer Abdominal aortic aneurysm s/p repair 2015 Multiple pulmonary nodules determined by computed tomography of lung BPH (benign prostatic hyperplasia) Kidney stones hx PVC (premature ventricular contraction) on occasion Hypertension Diverticulosis Hyperlipemia COPD (chronic obstructive pulmonary disease) well controlled per pt > no res inh use Surgical History History of aortic aneurysm repair endovascular > [facility] [place] > 2016 > follows with [facility] cardiology. Has to go for scan on 02/06/23 to check for "leak around the stent" as evidence of size increase per recent ultrasound [facility]. History of cataract surgery bilat History of tooth extraction dental implants History of lithotripsy History of inguinal hernia repair left x 1, right x 2. H/O colonoscopy 07/2020 repeat 5 years Family History Father Colon cancer Colorectal cancer Family/Other Heart disease Hypertension Mother Stroke Denies family history of Ovarian cancer Prostate cancer Myocardial infarction Breast cancer Social History Smoking Status: Former smoker Tobacco Type: Cigarettes Age Started Using Tobacco: 32; packs per day: 0.5; Cigarettes Per Day: 10 cigs per day; Second Hand Exposure: No; Do You Dip or Chew Tobacco: No; Hx Alcohol Use: No Hx Substance Use: No Preferred Language: Bahraini Communication Ability: Effective Visual Impairment: Limited Hearing Ability: Normal Kitchen And Bath Designer Required: No Beliefs That Will Affect Care: None marital status: Current Living Situation: Spouse Current Living Situation Comment: lives with 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 NAD. Cooperative. Appears fatigued Pulm:Tachypnic, diminished in the bases.+trace expiratory scattered wheeze. Symmetrical chest rise. Cardiac: tachycardic, regular -mrg. Radial pulses intact and symmetrical. Abdominal: Nontender, nondistended, soft. BS present. Ext: warm, dry Results & Data Results & Data Vital Signs (Past 12 Hours) Vital Signs Temp Pulse Pulse Resp BP BP Pulse Ox 04/21/23 15:50 126 H 04/21/23 15:09 129 H 24 76/59 L 91 04/21/23 15:05 126 H 24 92 04/21/23 15:05 92 04/21/23 14:44 37.1 C 137 H 20 77/46 L 86 L 04/21/23 14:44 O2 Del Method O2 Flow Rate 04/21/23 15:50 04/21/23 15:09 Oxymask 5 04/21/23 15:05 Oxymask 5 04/21/23 15:05 Oxymask 5 04/21/23 14:44 Nasal Cannula 6 04/21/23 14:44 Nasal Cannula 4 PG Care Time/CCT Total # of Minutes Spent Total Time Spent with Patient: Total time spent is greater than 50% in coordination of care (as documented) at patient's floor/unit and/or counseling patient: Coding Level of Care Code 14540 INT INP/OBS CARE 3/75MIN Diagnoses Sepsis A41.9 Adenocarcinoma of left lung, stage 3 C34.92 Neutropenia D70.9 Centrilobular emphysema J43.2 COPD type: emphysema Emphysema type: centrilobular Hypoxia R09.02 Elevated troponin R79.89 ABHISHEK (acute kidney injury) N17.9 Afib I48.91 (4) 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
[2023-04-21] MEDS: PLASMA-LYTE A 1,000 ML IV ONE (16:50)
[2023-04-21 16:52] LABS: Appearance Urine Clear (Clear); Bacteria Urine Automated Negative (Negative); Bilirubin Urine Negative (Negative); Blood Urine Negative (Negative); Color Urine Orange; Glucose Urine UA Negative (Negative); Ketones Urine Negative (Negative); Leukocyte Esterase Urine Negative (Negative); Nitrite Urine Negative (Negative); Protein Urine Trace (Negative); Specific Gravity Urine 1.012 (1.000-1.030); Urobilinogen Urine Negative (Negative); pH Urine 5.5 (4.5-7.5)
[2023-04-21] MEDS: MAGNESIUM SULFATE / D5W 1 GM/100 ML BAG IV SCH (17:44)
[2023-04-21] MEDS: VANCOMYCIN HCL 1,500 MG in SODIUM CHLORIDE 0.9% 500 ML IV ONE (17:44)
[2023-04-21] MEDS ORDERED: STAT IV Infusion **Titration per Protocol STA ×3 (18:04→21:21)
[2023-04-21] MEDS: methylPREDNISolone 125 MG/2 ML VIAL IV STA (18:04)
[2023-04-21] MEDS: NOREPINEPHRINE/D5W 4 MG/250 ML PLCT IV SCH (18:13)
[2023-04-21] MEDS: NOREPINEPHRINE/D5W 4 MG/250 ML IV ONE (18:14)
[2023-04-21] MEDS: PLASMA-LYTE A 1,000 ML IV SCH (18:21)
[2023-04-21] MEDS ORDERED: AMIODARONE IV BOLUS & DRIP IV STA (18:22)
[2023-04-21] MEDS: HYDROCORTISONE SOD SUCCINATE 100 MG/2 ML VIAL IV STA (18:26)
[2023-04-21] MEDS ORDERED: 0.2 MICRON FILTER SET 1 EACH IV STA (18:42)
[2023-04-21] MEDS ORDERED: Heparin IV Adult Wt-Based Low-Dose w/ INITIAL Bolus Protocol IV SCH (18:42)
[2023-04-21] MEDS: AMIODARONE 150MG / 100ML D5W IV ONE (18:53)
[2023-04-21] MEDS: AMIODARONE / D5W 150 MG/100 ML BAG IV STA (18:53)
[2023-04-21] MEDS: HEPARIN SOD (PORCINE) 1000 UNIT/ML ONE (18:56)
[2023-04-21] MEDS: HEPARIN 25000 UNIT/500 ML D5W IV ONE (18:56)
[2023-04-21] MEDS: HEPARIN SODIUM/DEXTROSE 25,000 UNITS/500 ML BAG IV SCH (18:56)
[2023-04-21] MEDS: HEPARIN SOD (PORCINE) 1000 UNIT/ML IV ONE (18:56)
[2023-04-21 19:04] LABS: BUN Creatinine Ratio 22.2 (10-20); Calcium 6.6 mg/dl (8.6-10.3); Creatinine Clr Calc Pharmacy 35.2 ml/min; Est GFR (African American) 45.4 ml/min; Est GFR (Non-African American) 39.2 ml/min
[2023-04-21] MEDS: AMIODARONE / D5W 360 MG/200 ML BAG IV ONE (19:12)
--- NOTE | 2023-04-21 20:07 | Billing Data ---
Date of Service April 21, 2023 Coding Level of Care Code 97176 CRITICAL CARE M
--- NOTE | 2023-04-21 20:07 | Pharmacy Report ---
Pharmacy PK ABX Note - Date of Service April 21, 2023 - Assessment and Plan Assessment 78 year old M admitted to the ICU with acute on chronic respiratory failure, neutropenia, and sepsis with suspected lung source. Patient started chemoradiation about 3 weeks ago for adenocarcinoma of left lung. Ordered empiric vancomycin, levofloxacin and cefepime IV. Pertinent microbiologic data includes: BC x 2 and MRSA nasal swab pending Plan Vancomycin * Loading dose: 1500 mg IV x 1 * Random level ordered for 04/21 with AM labs * Further dosing to be determined Pharmacy will continue to follow and will adjust dose/frequency as necessary. Thank you.
--- NOTE | 2023-04-21 20:17 | Critical Care Consultation ---
Date of Consultation April 21, 2023 Assessment & Plan (1) Afib: (2) Neutropenia: (3) Septic shock: (4) Adenocarcinoma of left lung, stage 3: (5) ABHISHEK (acute kidney injury): (6) Lactic acidosis: Plan 1. Septic shock 2. Multifocal pneumonia 3. Lactic acidosis 4. ABHISHEK on CKD 5. Neutropenia 6. Adenocarcinoma of lung, Stage III 7. Diarrhea Neurologic No acute concerns APAP PRN pain/fever Sleep hygiene Cardiovascular Continue norepinephrine for MAP > 65mmHg, add vasopressin POCUS on arrival to ICU to evaluate volume status Hold home antihypertensives Continue heparin and amiodarone pending Cardiology consultation, presently patient has converted to sinus with HR around 100bpm Respiratory Pulmonary hygiene Encourage deep breathing, IS/Flutter SpO2 goal > 88 CT PE negative for PE, confirmed multifocal pneumonia Antibiotics as below Gastrointestinal/Nutrition Diet: NPO except meds, advance as tolerated/respiratory status allows SUP: N/A Bowel regimen: Hold given diarrhea on presentation Endocrine Stress-dosed steroids as ordered BG goal 140-180 per [facility] guidelines Infectious Disease Cefepime/Levaquin/Vancomycin, de-escalate per culture data Sputum culture as able UA/UC pending, BCx2 pending, procalcitonin > 20 Neutropenic precautions Heme/Onc Neutropenic precautions Neupogen Appreciate Oncology recommendations Renal/Electrolytes IVF as above Manage electrolyte disturbances Trend lactate tp clearance L/T/D Arterial line (Day #1) PIV x3 DVT PPX: Heparin gtt Code Status: Full pending further discussions with patient and family. He states to me that he would want resuscitation, although stated to admitting physician that he would only be OK with intubation. Will change chart to reflect these wishes. History of Present Illness Reason for Consultation: Septic shock Attending Physician: Asad History of Present Illness Mr. 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 Per report, patient was short of breath and unwell at his Oncology appointment earlier in the day and was sent to the ER for evaluation. Patient was hypotensive, tachycardic, and hypoxic on arrival. He received total 3L IVF, empiric antibiotics in the form of cefepime, vancomycin, and Levaquin. Also started on high dose Solucortef as he is on chronic steroids. Converted to atrial fibrillation and was started on amiodarone and heparin infusion. This is reportedly a new rhythm for him. Work-up was remarkable for neutropenia < 1K, ABHISHEK on CKD, HAGMA with lactate of 4.0, and imaging showing bibasilar multifocal pneumonia. Hemodynamics initially improved but following fluid resuscitation he again developed hypotension thus was started on norepinephrine. ICU was consulted to assist in management of septic shock. Patient seen in ED B05. He is awake and alert. SpO2 > 90 on 10L oxymask. Family at bedside. They state he had a fever starting on Thursday of 103F in addition to weakness and chills. This AM patient developed diarrhea and became too weak to ambulate more than a few feet. He has also recently been started on furosemide for lower extremity edema, TTE ordered as outpatient. Allergies Allergy/AdvReac Type Severity Reaction Status Date / Time JUAN R Inhibitors AdvReac Intermediate hyperkalemi Verified 04/20/23 09:32 a Home Medications Medication Instructions Recorded Confirmed Type ascorbate calcium (vitamin C) 500 500 mg PO QAM 09/23/18 04/21/23 History mg tablet aspirin 81 mg tablet,delayed 81 mg PO QAM 09/23/18 04/21/23 History release (Adult Aspirin Regimen) vitamin E succinate 268 mg (400 400 units PO QAM 11/30/18 04/21/23 History unit) tablet albuterol sulfate 90 mcg/actuation 2 inh inhalation QID PRN shortness 12/19/20 04/21/23 Rx aerosol inhaler of breath or wheezing #8.5 grams atorvastatin 20 mg tablet (Lipitor) 20 mg PO PM 90 days #90 tabs 06/24/22 04/21/23 Rx amlodipine 5 mg tablet 5 mg PO QPM 01/20/23 04/21/23 History cholecalciferol (vitamin D3) 50 50 mcg PO QPM 01/20/23 04/21/23 History mcg (2,000 unit) capsule (Vitamin D3) prochlorperazine maleate 10 mg 10 mg PO Q8H PRN Nausea 03/18/23 04/21/23 History tablet (Compazine) fluticasone fur. 100 mcg-umeclid 1 inh inhalation DAILY #60 ea 03/31/23 04/21/23 Rx 62.5 mcg-vilant 25 mcg inhalat.powder (Trelegy Ellipta) furosemide 20 mg tablet (Lasix) 20 mg PO Q OTHER DAY #30 tabs 03/31/23 04/21/23 Rx Oxygen Home E0424 #1 L 04/08/23 04/21/23 Rx dexamethasone 4 mg tablet 4 mg PO UD 04/21/23 04/21/23 History ondansetron 8 mg disintegrating 8 mg PO Q8 PRN Nausea And Vomiting 04/21/23 04/21/23 History tablet Patient History Medical History Chronic obstructive pulmonary disease Lower extremity edema BPH (benign prostatic hyperplasia) Hyperlipidemia Lung cancer Abdominal aortic aneurysm s/p repair 2015 Multiple pulmonary nodules determined by computed tomography of lung BPH (benign prostatic hyperplasia) Kidney stones hx PVC (premature ventricular contraction) on occasion Hypertension Diverticulosis Hyperlipemia COPD (chronic obstructive pulmonary disease) well controlled per pt > no res inh use Surgical History History of aortic aneurysm repair endovascular > [facility] [place] > 2016 > follows with [facility] cardiology. Has to go for scan on 02/06/23 to check for "leak around the stent" as evidence of size increase per recent ultrasound [facility]. History of cataract surgery bilat History of tooth extraction dental implants History of lithotripsy History of inguinal hernia repair left x 1, right x 2. H/O colonoscopy 07/2020 repeat 5 years Family History Father Colon cancer Colorectal cancer Family/Other Heart disease Hypertension Mother Stroke Denies family history of Ovarian cancer Prostate cancer Myocardial infarction Breast cancer Social History Smoking Status: Former smoker Tobacco Type: Cigarettes Age Started Using Tobacco: 32; packs per day: 0.5; Cigarettes Per Day: 10 cigs per day; Smoking End Date: 01/27/2023; Second Hand Exposure: No; Do You Dip or Chew Tobacco: No; Tobacco Cessation Education Requested by Patient: No Hx Alcohol Use: No Hx Substance Use: No Preferred Language: Croatian Communication Ability: Effective Visual Impairment: Limited Hearing Ability: Normal Rn Medicare Required: No Beliefs That Will Affect Care: None marital status: Current Living Situation: Spouse Current Living Situation Comment: lives with 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 How many Children do You have: 1 Other Information That Helps Us Care for You: No Feels Safe at Home: Yes Safety Concerns: Feels Safe At This Time Childhood Exposure to Second-Hand Smoke: No caffeine: Yes Dental Care, Regularly: Yes Physical Activity Frequency: Does not Exercise Seatbelt Use: always Sunscreen Use: Yes Assistive Devices: None Review of Systems Constitutional: + fever, + chills, + fatigue and + weakn ess Eyes: no problem reported Ear, Nose, Mouth, Throat: no dental pain, no sore throat and no dysphagia Respiratory: + cough and + dyspnea on exertion; no wh eezing Cardiovascular: + edema; no chest pain, no radiating jaw , neck or arm pain, no palpitations and no syncope Gastrointestinal: + diarrhea/loose stools; no abdominal pa in, no nausea, no vomiting, no hematemesis and no melena Genitourinary: no dysuria, no urinary frequency, no urinary incontinence, no hematuria or no flank pain Musculoskeletal: no problem reported Integumentary: no problem reported Neurologic: no falls, no loss of sensation, no numbness, no radiating pain, no headache(s), no behavioral changes and no confusion Endocrine: no problem reported Hematologic / Lymphatic: no problem reported Physical Exam Constitutional: + frail appearing and cooperative; no ac nikolai distress Eyes: PERRL, conjunctivae normal, anicteric sclerae ENMT: external ear and nose normal, oropharynx normal Mouth: + dry oral mucous membranes Neck: trachea midline, no thyromegaly Respiratory: + cough, able to speak in complete sente nces and + tachypneic; no respiratory distress and no audible wheezes Auscultation: + rhonchi; no wheezes Cardiovascular: Rate/Rhythm: regular rate and + tachycardic Heart Sounds: no murmur Gastrointestinal (Abdomen): normal bowel sounds, soft, nontender, no hepatosplenomegaly Skin: no rashes, warm and dry Neurologic: PERRL, EOMI, accommodation nl, no face palsy, no dysarthria Results & Data Results & Data Vital Signs (Past 12 Hours) Vital Signs Temp Pulse Pulse Resp BP BP Pulse Ox 04/21/23 19:46 141 H 25 H 91/61 L 91 04/21/23 19:41 145 H 18 82/51 L 90 04/21/23 19:35 128 H 24 72/57 L 91 04/21/23 19:30 128 H 25 H 77/48 L 90 04/21/23 19:30 121 H 25 H 77/48 L 90 04/21/23 19:18 37.5 C 04/21/23 19:16 119 H 28 H 72/44 L 89 L 04/21/23 19:00 143 H 20 81/47 L 87 L 04/21/23 18:46 153 H 28 H 93/75 L 90 04/21/23 18:30 147 H 25 H 77/48 L 90 04/21/23 18:21 141 H 24 84/49 L 90 04/21/23 18:21 141 H 24 90 04/21/23 18:16 154 H 18 77/48 L 90 04/21/23 18:09 147 H 20 84/49 L 90 04/21/23 18:09 160 H 04/21/23 18:01 145 H 19 77/34 L 89 L 04/21/23 18:00 145 H 21 66/47 L 89 L 04/21/23 17:48 130 H 28 H 119/102 H 04/21/23 17:30 128 H 26 H 78/55 L 91 04/21/23 17:00 135 H 28 H 88/58 L 92 04/21/23 16:50 139 H 30 H 97/62 L 95 04/21/23 16:48 135 H 27 H 97/62 L 04/21/23 15:50 126 H 04/21/23 15:44 135 H 26 H 85/57 L 90 04/21/23 15:21 133 H 22 89/64 L 93 04/21/23 15:09 129 H 24 76/59 L 91 04/21/23 15:05 126 H 24 92 04/21/23 15:05 92 04/21/23 14:44 37.1 C 137 H 20 77/46 L 86 L 04/21/23 14:44 O2 Del Method O2 Flow Rate 04/21/23 19:46 Oxymask 10 04/21/23 19:41 Oxymask 10 04/21/23 19:35 Oxymask 10 04/21/23 19:30 Oxymask 10 04/21/23 19:30 Oxymask 10 04/21/23 19:18 04/21/23 19:16 Oxymask 8 04/21/23 19:00 Oxymask 8 04/21/23 18:46 Oxymask 8 04/21/23 18:30 Oxymask 8 04/21/23 18:21 Oxymask 8 04/21/23 18:21 Oxymask 8 04/21/23 18:16 Oxymask 8 04/21/23 18:09 Oxymask 8 04/21/23 18:09 04/21/23 18:01 Oxymask 8 04/21/23 18:00 Oxymask 8 04/21/23 17:48 04/21/23 17:30 04/21/23 17:00 04/21/23 16:50 04/21/23 16:48 04/21/23 15:50 04/21/23 15:44 04/21/23 15:21 04/21/23 15:09 Oxymask 5 04/21/23 15:05 Oxymask 5 04/21/23 15:05 Oxymask 5 04/21/23 14:44 Nasal Cannula 6 04/21/23 14:44 Nasal Cannula 4 Laboratory Results Reviewed Diagnostic Findings Reviewed Medications Administered See MAR Coding Level of Care Code 65389 IN/OBS CONSULT LVL 3,45M Diagnoses Afib I48.91 Neutropenia D70.9 Septic shock A41.9; R65.21 Adenocarcinoma of left lung, stage 3 C34.92 ABHISHEK (acute kidney injury) N17.9 Lactic acidosis E87.20 Time Spent (min) 45
[2023-04-21] MEDS: OPTIRAY 320 125ml IV ONE (20:26)
[2023-04-21] MEDS: levoFLOXacin/D5W 750 MG/150 ML BAG IV STA (21:47)
--- NOTE | 2023-04-21 21:47 | CT Scan Report ---
Exam(s): CTA CHEST IV Amt: 118 ml opti 320 EXAM: CT Angiography Chest With Intravenous Contrast CLINICAL HISTORY: Reason for exam: PE. TECHNIQUE: Axial computed tomographic angiography images of the chest with intravenous contrast. CTDI is 57.87 mGy and DLP is 1887.98 mGy-cm. Automated exposure control was utilized for the study. A dose lowering technique was utilized adhering to the principles of ALARA. MIP reconstructed images were created and reviewed. COMPARISON: No relevant prior studies available. FINDINGS: Pulmonary arteries: Unremarkable. No acute pulmonary embolism. Aorta: No acute findings. No thoracic aortic aneurysm. Lungs: Patchy bilateral airspace consolidations at the lung bases, RIGHT middle lobe, and lingula, consistent with multilobar pneumonia. Moderate centrilobular emphysema. Pleural space: Unremarkable. No significant effusion. No pneumothorax. Heart: Unremarkable. No cardiomegaly. No significant pericardial effusion. No evidence of RV dysfunction. Bones/joints: No acute fracture. No dislocation. Soft tissues: Unremarkable. Lymph nodes: Unremarkable. No enlarged lymph nodes. IMPRESSION: 1. No acute pulmonary embolism. 2. Patchy bilateral airspace consolidations at the lung bases, RIGHT middle lobe, and lingula, consistent with multilobar pneumonia. Electronically signed by: Chuy Duran MD 04/21/23 21:46 PM
[2023-04-21] MEDS: VASOPRESSIN 20 UNITS in 0.9 % SODIUM CHLORIDE 100 ML IV SCH (21:48)
--- NOTE | 2023-04-21 21:50 | CT Scan Report ---
Exam(s): CT ABDOMEN + PELVIS With Contrast IV Amt: 118 ml opti 320 EXAM: CT Abdomen and Pelvis With Intravenous Contrast CLINICAL HISTORY: Reason for exam: sepsis, diarrhea. TECHNIQUE: Axial computed tomography images of the abdomen and pelvis with intravenous contrast. CTDI is 57.87 mGy and DLP is 1887.98 mGy-cm. Automated exposure control was utilized for the study. A dose lowering technique was utilized adhering to the principles of ALARA. CONTRAST: Patient received 118 ml opti 320 of IV contrast COMPARISON: No relevant prior studies available. FINDINGS: ABDOMEN: Liver: Hepatic steatosis. Gallbladder and bile ducts: Unremarkable. No calcified stones. No ductal dilation. Pancreas: Unremarkable. No mass. No ductal dilation. Spleen: Unremarkable. No splenomegaly. Adrenals: Unremarkable. No mass. Kidneys and ureters: Bilateral nonobstructing renal calculi. Renal cysts. Stomach and bowel: Diverticulosis, without acute diverticulitis. No small bowel obstruction. No free intraperitoneal air. PELVIS: Appendix: No findings to suggest acute appendicitis. Bladder: Unremarkable. Normal urinary bladder. Reproductive: Unremarkable as visualized. ABDOMEN and PELVIS: Intraperitoneal space: Unremarkable. No free air. No significant fluid collection. Bones/joints: No acute fracture. No dislocation. Soft tissues: Unremarkable. Vasculature: Aortoiliac stent graft. No abdominal aortic aneurysm. Lymph nodes: Unremarkable. No enlarged lymph nodes. IMPRESSION: 1. Hepatic steatosis. 2. Bilateral nonobstructing renal calculi. 3. Diverticulosis, without acute diverticulitis. No small bowel obstruction. No free intraperitoneal air. Electronically signed by: Chuy Duran MD 04/21/23 21:49 PM
[2023-04-21] MEDS ORDERED: HEPARIN SOD 5,000 UNIT/0.5 ML VIAL SQ SCH (22:00)
[2023-04-21] MEDS: ICU Protocol for HYPERglycemia SCH (22:26)
[2023-04-21] MEDS: FILGRASTIM 480 MCG/1.6 ML VIAL SQ SCH (22:58)
[2023-04-21] MEDS ORDERED: STAT IV/IM STA (22:58)
[2023-04-21] MEDS: HYDROCORTISONE SOD 50 MG in SYRINGE 0 ML IV SCH (23:02)
[2023-04-21 23:06] LABS: Appearance Urine Clear (Clear); Bacteria Urine Automated Negative (Negative); Bilirubin Urine Negative (Negative); Blood Urine Negative (Negative); Color Urine Yellow; Epithelial Cell Urine Auto 0-5 /lpf (0-5); Glucose Urine UA Negative (Negative); Ketones Urine Negative (Negative); Leukocyte Esterase Urine Negative (Negative); Nitrite Urine Negative (Negative); Protein Urine Trace (Negative); RBC Urine Automated 0-4 /hpf (0-4); Specific Gravity Urine 1.035 (1.000-1.030); Urobilinogen Urine Negative (Negative); pH Urine 5.5 (4.5-7.5)
[2023-04-21] MEDS: CALCIUM GLUCONATE 10% 1,000 MG in SODIUM CHLOR 0.9% MINI-B 50 ML IV ONE (23:13)
[2023-04-21] MEDS: LACTATED RINGER'S 250 ML IV ONE (23:24)
[2023-04-22] MEDS ORDERED: HYDROCORTISONE SOD SUCCINATE 100 MG/2 ML VIAL IV SCH
[2023-04-22 00:38] LABS: BUN Creatinine Ratio 22.4 (10-20); Calcium 6.5 mg/dl (8.6-10.3); Est GFR (African American) 50.9 ml/min; Est GFR (Non-African American) 43.9 ml/min; Magnesium 1.4 mg/dl (1.7-2.4); Phosphorus 5.4 mg/dl (2.5-4.9); Potassium 4.8 mmol/L (3.5-5.1)
[2023-04-22] MEDS: AMIODARONE / D5W 360 MG/200 ML BAG IV SCH (00:48)
[2023-04-22 01:11] LABS: Influenza A virus by PCR Negative (Neg); Influenza B virus by PCR Negative (Neg); RSV by PCR Negative (Neg); SARS CoV2 RNA(COVID-19) Ceph NEGATIVE (Negative)
[2023-04-22] MEDS: MAGNESIUM SULFATE / D5W 1 GM/100 ML BAG IV SCH (01:38)
[2023-04-22] MEDS: CEFEPIME 2,000 MG in SYRINGE 0 ML IV SCH (01:38)
[2023-04-22 01:45] LABS: ANTI-Xa, UFH(UnfractionatedHep 0.72 IU/ml (0.3-0.7)
[2023-04-22 01:54] LABS: Adenovirus F 40/41 PCR Not Detected (NotDetected); Astrovirus PCR Not Detected (NotDetected); Campylobacter PCR Not Detected (NotDetected); Cryptosporidium PCR Not Detected (NotDetected); Cyclospora cayetanensis PCR Not Detected (NotDetected); Entamoeba histolytica PCR Not Detected (NotDetected); Enteroaggregative E.coli(EAEC) Not Detected (NotDetected); Enteropathogenic E.coli (EPEC) Not Detected (NotDetected); Enterotoxigenic E.coli (ETEC) Not Detected (NotDetected); Giardia lamblia PCR Not Detected (NotDetected); Norovirus GI/GII PCR Not Detected (NotDetected); Plesiomonas shigelloides PCR Not Detected (NotDetected); Rotavirus A PCR Not Detected (NotDetected); Salmonella PCR Not Detected (NotDetected); Sapovirus PCR Not Detected (NotDetected); Shiga-like Toxin E.coli (STEC) Not Detected (NotDetected); Shigella/Enteroinvasive E.coli Not Detected (NotDetected); Vibrio cholerae PCR Not Detected (NotDetected); Vibrio species PCR Not Detected (NotDetected); Yersinia enterocolitica PCR Not Detected (NotDetected)
[2023-04-22] MEDS ORDERED: VANCOMYCIN HCL 1,250 MG in SODIUM CHLORIDE 0.9% 500 ML IV SCH (04:30)
[2023-04-22 05:17] LABS: Albumin Globulin Ratio 1.3 (0.9-2); Albumin Level 2.9 gm/dl (3.4-5.0); BUN Creatinine Ratio 23.5 (10-20); Bilirubin,Total 0.7 mg/dl (0.2-1.0); Calcium 6.6 mg/dl (8.6-10.3); Creatinine Clr Calc Pharmacy 48.3 ml/min; Est GFR (African American) 60.3 ml/min; Globulin 2.2 gm/dl (2.5-4.0); Magnesium 2.2 mg/dl (1.7-2.4); Phosphorus 4.3 mg/dl (2.5-4.9); Potassium 4.9 mmol/L (3.5-5.1); Total Protein 5.1 gm/dl (6.0-8.3)
[2023-04-22] MEDS ORDERED: GLUCOSE 40% GEL 15 GM TUBE PO PRN (05:32)
[2023-04-22] MEDS ORDERED: GLUCAGON FOR INJ 1 MG VIAL SQ PRN (05:32)
[2023-04-22] MEDS ORDERED: CARBOHYDRATES FOR HYPOGLYCEMIA PO PRN (05:32)
[2023-04-22] MEDS ORDERED: GLUCOSE 10 TAB/TUBE PO PRN (05:32)
[2023-04-22] MEDS ORDERED: DEXTROSE 50% 50 ML SYRINGE IV PRN (05:32)
[2023-04-22 05:33] LABS: Hematocrit (blood only) 30.7 % (42.0-52.0); Hemoglobin 10.2 g/dl (14.0-18.0); Mean Corpuscular Hemoglobin 30.9 pg (25.0-34.0); Mean Corpuscular Hgb Conc 33.2 g/dL (32.0-36.0); Neutrophils # (auto) < 0.50 K/uL (1.40-6.50); Platelet Count 147 K/uL (130-400); RDW Coefficient of Variation 14.6 % (11.5-14.5); RDW Standard Deviation 48.4 fL (36.4-46.3); White Blood Count 0.35 K/ul (4.8-10.8)
[2023-04-22 05:37] LABS: iSTAT Art Bld Gas pCO2 Correct 42 mmHg (35-46); iSTAT Art Bld Gas pH Corrected 7.154 (7.35-7.45); iSTAT Arterial Blood Gas HCO3 15 meg/L (19-24); iSTAT Arterial Blood Gas pCO2 42 mmHg (35-46); iSTAT Arterial Blood Gas pH 7.15 (7.35-7.45); iSTAT Arterial Blood Gas pO2 68 mmHg (80-95); iSTAT Arterial Blood Gas pO2 C 68; iSTAT Carbon Dioxide 16 mmol/L (24-31); iSTAT Hematocrit 29 % (42-52); iSTAT Hemoglobin 9.9 g/dl (14.0-18.0); iSTAT Potassium 4.8 mmol/L (3.3-5.0); iSTAT Site Art Line; iSTAT Sodium 130 mmol/L (135-144)
[2023-04-22 05:37] LABS: iSTAT Art Bld Gas pCO2 Correct 29 mmHg (35-46); iSTAT Art Bld Gas pH Corrected 7.305 (7.35-7.45); iSTAT Arterial Blood Gas HCO3 14 meg/L (19-24); iSTAT Arterial Blood Gas pCO2 29 mmHg (35-46); iSTAT Arterial Blood Gas pH 7.31 (7.35-7.45); iSTAT Arterial Blood Gas pO2 74 mmHg (80-95); iSTAT Arterial Blood Gas pO2 C 74; iSTAT Carbon Dioxide 15 mmol/L (24-31); iSTAT FiO2 60 %; iSTAT Hematocrit 30 % (42-52); iSTAT Hemoglobin 10.2 g/dl (14.0-18.0); iSTAT Potassium 4.9 mmol/L (3.3-5.0); iSTAT Site Art Line; iSTAT Sodium 128 mmol/L (135-144)
[2023-04-22] MEDS: INSULIN ASPART PER UNIT CHARGE SC SCH (06:00)
[2023-04-22] MEDS ORDERED: ACETAMINOPHEN 325 MG TAB PO PRN (06:26)
--- NOTE | 2023-04-22 07:13 | Critical Care Progress Note ---
Date of Service April 22, 2023 Assessment & Plan (1) Afib: (2) Neutropenia: (3) Septic shock: (4) Adenocarcinoma of left lung, stage 3: (5) ABHISHEK (acute kidney injury): (6) Lactic acidosis: Plan Reason Critically Ill: 78-year-old male admitted to the hospital because of septic shock for multilobar pneumonia Past medical history of stage III adenocarcinoma of the lung currently going chemo and radiation Neuro - [facility] ICU: Negative No acute needs Cardiac - --Septic shock Likely from multilobar pneumonia Continue with vasopressor support to keep MAP greater than 65 Random cortisol 36 Patient was getting dexamethasone as an outpatient, continue with hydrocortisone based on the latest studies in patients presenting with severe pneumonia -- A-fib with RVR Likely from underlying sepsis Continue heparin and amiodarone Follow-up cardiology Respiratory - -- Acute hypoxic respiratory failure Secondary to multilobar pneumonia Encourage deep breathing, IS/Flutter SpO2 goal > 88 CT PE negative for PE, confirmed multifocal pneumonia --Poorly differentiated adenocarcinoma of the lung Robotic navigational bronchoscopy 01/27/2023 revealed poorly differentiated adenocarcinoma in 2 different lung nodules. ET scan 01/15/2023 revealed PET avid nodules in the lingula and also in the left lower lobe. Pathological stage of T4/N0/M0. Clinical stage IIIa disease. Patient likely a poor candidate for surgery given poor PFTs. FEV1 03/22/2021 was 1.30 L, 44%. DLCO 63%. Outpatient PFT GI - Bowel regimen: Hold given diarrhea on presentation RENAL/LYTES - -- ABHISHEK Likely from septic shock Monitor BUN/creatinine Avoid nephrotoxic medications Strict ins and outs - Continue with Crooks catheter ENDO - Stress-dosed steroids as ordered ICU hyperglycemia protocol --Hypocalcemia Corrected calcium 7.5 HEME - -- Neutropenia with ANC less than 500 Continue with antibiotics and neutropenic precautions Patient has been getting filgrastim ID - -- Gram-negative bacteremia likely Pseudomonas Follow-up sensitivities Continue with antibiotics Vancomycin discontinued 04/22/2023 Nasal MRSA negative SARS-CoV-2, influenza A/B, RSV all negative --Prophylaxis VTE: Heparin drip GI: Pantoprazole Lines: Right IJ, right radial, positive Crooks Diet: N.p.o. Plan: In/out: +4.2 L, urine output 3.4 L AB. Patient still has a lactate of 4. He is having difficulty clearing it. Patient mainly has metabolic acidosis. I will give him bicarb to decrease his need of respiratory compensation Try to titrate down vasopressors to keep MAP greater than 65 Patient's calcium was only 6.6 with corrected calcium 7.5. Will consider giving him additional calcium chloride or gluconate Continue with hydrocortisone given the patient has severe pneumonia requiring vasopressors I have personally spent 42 minutes of critical care time in the direct management of this patient. This is a life/limb threatening event. This includes time spent evaluating patient, direct bedside care, chart review, placing orders, interpretation of diagnostic studies, discussion with consultants, patient, and family members, as well as other required patient management activities. This time is exclusive of all separately billable procedures, and teaching time and separate from and in addition to any other critical care service time. Admission and Anticipated Discharge Date Admission Date: April 21, 2023 Subjective Patient seen and examined at bedside. No acute distress, no adverse events overnight He was on BiPAP 12/6 breathing in the high teens to low 20s. Stated that he is feeling better compared to when he came to the hospital Denied any nausea vomiting No headache Patient's family which included and daughter were at bedside Denies any abdominal pain He was on 0.23 of Levophed and 0.04 of vasopressin with MAP in the low 80s. Amiodarone 0.5. I was able to go down to on Levophed 2.18. Review of Systems 2 Review of Systems: All systems reviewed & are unremarkable except as noted in Subjective Physical Exam 2 Physical Exam: Constitutional: No acute distress HEENT: EOMI, PERRLA Respiratory system: Decreased air entry bilaterally, no wheeze, Positive crackles bilateral lower lobes more on the right side CVS: S1-S2 positive, no murmurs or gallops Abdomen: Soft, nontender, nondistended, positive bowel sounds x4 Extremities: +2 pulses bilaterally radialis/ dorsalis pedis, no cyanosis, no edema Neuro: Awake alert oriented x3 Psych: Normal mood and affect G/U: Positive Crooks Skin: no rashes, warm and dry Lymphatic: no cervical or axillary lymphadenopathy Results & Data Results & Data Vital Signs (Past 12 Hours) Vital Signs Temp Pulse Pulse Resp BP BP Pulse Ox 04/22/23 06:00 95/73 L 04/22/23 06:00 91 H 24 94 03/13/24 05:30 91 H 23 94 04/22/23 05:00 38.3 C H 109/75 04/22/23 05:00 92 H 23 96 04/22/23 04:30 90 24 97 04/22/23 04:00 109/82 04/22/23 04:00 96 H 23 93 04/22/23 03:30 86 23 93 04/22/23 03:21 97 H 26 H 94 04/22/23 03:01 92/68 L 04/22/23 03:01 94 H 24 75 L 04/22/23 03:00 92 H 25 H 96 04/22/23 02:30 95 H 24 92 04/22/23 02:00 97 H 29 H 90 04/22/23 01:31 83/67 L 04/22/23 01:31 96 H 25 H 04/22/23 01:30 95 H 30 H 04/22/23 01:16 121/75 04/22/23 01:16 98 H 23 83 L 04/22/23 01:00 102/64 04/22/23 01:00 96 H 30 H 91 04/22/23 00:46 97/60 L 04/22/23 00:46 98 H 25 H 92 04/22/23 00:30 130/78 04/22/23 00:30 104 H 31 H 86 L 04/22/23 00:30 27 H 94 04/22/23 00:15 127/85 04/22/23 00:15 108 H 26 H 87 L 04/22/23 00:00 116/73 04/22/23 00:00 104 H 38 H 90 04/21/23 23:45 110 H 28 H 88 L 04/21/23 23:45 131/76 04/21/23 23:31 125/90 04/21/23 23:31 105 H 24 88 L 04/21/23 23:30 102 H 37 H 87 L 04/21/23 23:15 88/63 L 04/21/23 23:15 105 H 25 H 86 L 04/21/23 23:01 90/63 L 04/21/23 23:01 105 H 28 H 91 04/21/23 23:00 106 H 23 90 04/21/23 22:45 04/21/23 22:30 108 H 27 H 84 L 04/21/23 22:30 88/53 L 04/21/23 22:15 85/68 L 04/21/23 22:15 109 H 31 H 89 L 04/21/23 22:00 91/63 L 04/21/23 22:00 109 H 24 91 04/21/23 21:45 84/57 L 04/21/23 21:45 110 H 23 92 04/21/23 21:30 88/62 L 04/21/23 21:30 113 H 24 93 04/21/23 21:26 115 H 25 H 92 04/21/23 21:26 87/58 L 04/21/23 21:00 78/55 L 04/21/23 21:00 117 H 28 H 94 04/21/23 20:51 89/60 L 04/21/23 20:51 118 H 30 H 94 04/21/23 20:26 37.1 C 129 H 20 89/60 L 94 04/21/23 20:10 89/67 L 04/21/23 20:10 147 H 26 H 89 L 04/21/23 20:05 91/71 L 04/21/23 20:05 128 H 30 H 90 04/21/23 20:00 74/60 L 04/21/23 20:00 148 H 26 H 92 04/21/23 19:46 141 H 25 H 91/61 L 91 04/21/23 19:41 145 H 18 82/51 L 90 04/21/23 19:35 128 H 24 72/57 L 91 04/21/23 19:30 128 H 25 H 77/48 L 90 04/21/23 19:30 121 H 25 H 77/48 L 90 04/21/23 19:18 37.5 C 04/21/23 19:16 119 H 28 H 72/44 L 89 L O2 Del Method O2 Flow Rate FiO2 04/22/23 06:00 04/22/23 06:00 04/22/23 05:30 04/22/23 05:00 04/22/23 05:00 04/22/23 04:30 04/22/23 04:00 04/22/23 04:00 04/22/23 03:30 04/22/23 03:21 60 04/22/23 03:01 04/22/23 03:01 04/22/23 03:00 04/22/23 02:30 04/22/23 02:00 04/22/23 01:31 04/22/23 01:31 04/22/23 01:30 04/22/23 01:16 04/22/23 01:16 04/22/23 01:00 04/22/23 01:00 04/22/23 00:46 04/22/23 00:46 04/22/23 00:30 04/22/23 00:30 04/22/23 00:30 60 04/22/23 00:15 04/22/23 00:15 04/22/23 00:00 04/22/23 00:00 04/21/23 23:45 04/21/23 23:45 04/21/23 23:31 04/21/23 23:31 04/21/23 23:30 04/21/23 23:15 04/21/23 23:15 04/21/23 23:01 04/21/23 23:01 04/21/23 23:00 04/21/23 22:45 Oxymask 10 04/21/23 22:30 04/21/23 22:30 04/21/23 22:15 04/21/23 22:15 04/21/23 22:00 04/21/23 22:00 04/21/23 21:45 04/21/23 21:45 04/21/23 21:30 04/21/23 21:30 04/21/23 21:26 04/21/23 21:26 04/21/23 21:00 04/21/23 21:00 04/21/23 20:51 04/21/23 20:51 04/21/23 20:26 Oxymask 15 04/21/23 20:10 04/21/23 20:10 04/21/23 20:05 04/21/23 20:05 04/21/23 20:00 04/21/23 20:00 04/21/23 19:46 Oxymask 10 04/21/23 19:41 Oxymask 10 04/21/23 19:35 Oxymask 10 04/21/23 19:30 Oxymask 10 04/21/23 19:30 Oxymask 10 04/21/23 19:18 04/21/23 19:16 Oxymask 8 Laboratory Results 04/22/23 04:35 04/22/23 04:35 Coding Level of Care Code 54336 CRITICAL CARE 1ST 30-74M Diagnoses Afib I48.91 Neutropenia D70.9 Septic shock A41.9; R65.21 Adenocarcinoma of left lung, stage 3 C34.92 ABHISHEK (acute kidney injury) N17.9 Lactic acidosis E87.20
--- NOTE | 2023-04-22 07:45 | XRay Report ---
XR chest 1V portable CLINICAL HISTORY: resp distress TECHNIQUE: Single frontal radiograph of the chest was obtained. Comparison: Comparison is made to chest radiograph 04/21/2023 FINDINGS: No lines and tubes are seen. The cardiomediastinal silhouette is normal. Bilateral lower lung airspac e opacities have increased in conspicuity from prior exam. No evidence of pleural effusion or pneumot horax. IMPRESSION: Interval worsening of bilateral lower lung airspace opacities likely representing pneumonia. ACT 112: Negative or not required by law. Electronically signed by: Reese Garrison M.D. 04/22/2023 7:44 AM
--- NOTE | 2023-04-22 07:48 | XRay Report ---
XR chest 1V portable CLINICAL HISTORY: central line placement TECHNIQUE: Single frontal radiograph of the chest was obtained. Comparison: Comparison is made to chest radiograph 04/22/2023 FINDINGS: Right-sided venous catheter is seen terminating in the mid to lower SVC. The cardiomediastinal silhou ette is normal. Bilateral lower lung predominant airspace opacities are seen. No evidence of pleural effusion or pneumothorax. IMPRESSION: Satisfactory position of central line. Bibasilar airspace opacities are again seen. ACT 112: Negative or not required by law. Electronically signed by: Reese Garrison M.D. 04/22/2023 7:47 AM
[2023-04-22] MEDS: MAGNESIUM OXIDE 400 MG TAB PO SCH (08:22)
[2023-04-22] MEDS: FLUTICASONE FUROATE 100MCG 14 PUFFS/INHALER INH SCH (08:23)
[2023-04-22] MEDS: UMECLIDINIUM/VILANTEROL 62.5/25MCG 7 PUFFS/INHALER INH SCH (08:23)
[2023-04-22] MEDS: SODIUM BICARB 8.4% INJ 50 MEQ/50 ML SYR IV STA (08:25)
--- NOTE | 2023-04-22 08:33 | Oncology Consultation ---
Date of Consultation April 22, 2023 History of Present Illness Attending Physician: Serafin Arguello Allergies Allergy/AdvReac Type Severity Reaction Status Date / Time JUAN R Inhibitors AdvReac Intermediate hyperkalemi Verified 04/20/23 09:32 a Home Medications Medication Instructions Recorded Confirmed Type ascorbate calcium (vitamin C) 500 500 mg PO QAM 09/23/18 04/21/23 History mg tablet aspirin 81 mg tablet,delayed 81 mg PO QAM 09/23/18 04/21/23 History release (Adult Aspirin Regimen) vitamin E succinate 268 mg (400 400 units PO QAM 11/30/18 04/21/23 History unit) tablet albuterol sulfate 90 mcg/actuation 2 inh inhalation QID PRN shortness 12/19/20 04/21/23 Rx aerosol inhaler of breath or wheezing #8.5 grams atorvastatin 20 mg tablet (Lipitor) 20 mg PO PM 90 days #90 tabs 06/24/22 04/21/23 Rx amlodipine 5 mg tablet 5 mg PO QPM 01/20/23 04/21/23 History cholecalciferol (vitamin D3) 50 50 mcg PO QPM 01/20/23 04/21/23 History mcg (2,000 unit) capsule (Vitamin D3) prochlorperazine maleate 10 mg 10 mg PO Q8H PRN Nausea 03/18/23 04/21/23 History tablet (Compazine) fluticasone fur. 100 mcg-umeclid 1 inh inhalation DAILY #60 ea 03/31/23 04/21/23 Rx 62.5 mcg-vilant 25 mcg inhalat.powder (Trelegy Ellipta) furosemide 20 mg tablet (Lasix) 20 mg PO Q OTHER DAY #30 tabs 03/31/23 04/21/23 Rx Oxygen Home E0424 #1 L 04/08/23 04/21/23 Rx dexamethasone 4 mg tablet 4 mg PO UD 04/21/23 04/21/23 History ondansetron 8 mg disintegrating 8 mg PO Q8 PRN Nausea And Vomiting 04/21/23 04/21/23 History tablet Patient History Medical History Chronic obstructive pulmonary disease Lower extremity edema BPH (benign prostatic hyperplasia) Hyperlipidemia Lung cancer Abdominal aortic aneurysm s/p repair 2016 Multiple pulmonary nodules determined by computed tomography of lung BPH (benign prostatic hyperplasia) Kidney stones hx PVC (premature ventricular contraction) on occasion Hypertension Diverticulosis Hyperlipemia COPD (chronic obstructive pulmonary disease) well controlled per pt > no res inh use Surgical History History of aortic aneurysm repair endovascular > [facility] > 2016 > follows with [facility] cardiology. Has to go for scan on 02/06/23 to check for "leak around the stent" as evidence of size increase per recent ultrasound [facility]. History of cataract surgery bilat History of tooth extraction dental implants History of lithotripsy History of inguinal hernia repair left x 1, right x 2. H/O colonoscopy 07/2020 repeat 5 years Family History Father Colon cancer Colorectal cancer Family/Other Heart disease Hypertension Mother Stroke Denies family history of Ovarian cancer Prostate cancer Myocardial infarction Breast cancer Social History Smoking Status: Former smoker Tobacco Type: Cigarettes Age Started Using Tobacco: 32; packs per day: 0.5; Cigarettes Per Day: 10 cigs per day; Smoking End Date: 01/27/2023; Second Hand Exposure: No; Do You Dip or Chew Tobacco: No; Tobacco Cessation Education Requested by Patient: No Hx Alcohol Use: No Hx Substance Use: No Preferred Language: Indonesian Communication Ability: Effective Visual Impairment: Limited Hearing Ability: Normal Maintenance Service Supervisor Required: No Beliefs That Will Affect Care: None marital status: Current Living Situation: Spouse Current Living Situation Comment: lives with current occupational status: 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 How many Children do You have: 1 Other Information That Helps Us Care for You: No Feels Safe at Home: Yes Safety Concerns: Feels Safe At This Time Childhood Exposure to Second-Hand Smoke: No caffeine: Yes Dental Care, Regularly: Yes Physical Activity Frequency: Does not Exercise Seatbelt Use: always Sunscreen Use: Yes Assistive Devices: None Results & Data Vital Signs (Past 12 Hours) Vital Signs Temp Pulse Resp BP Pulse Ox O2 Del Method O2 Flow Rate 04/22/23 08:02 BiPAP 04/22/23 07:30 92 H 24 94 04/22/23 07:26 88 22 93 04/22/23 07:00 89 23 94 04/22/23 07:00 97/78 L 04/22/23 06:30 92 H 24 93 04/22/23 06:00 95/73 L 04/22/23 06:00 91 H 24 94 04/22/23 05:30 91 H 23 94 04/22/23 05:00 38.3 C H 109/75 04/22/23 05:00 92 H 23 96 04/22/23 04:30 90 24 97 04/22/23 04:00 109/82 04/22/23 04:00 96 H 23 93 04/22/23 03:30 86 23 93 04/22/23 03:21 97 H 26 H 94 04/22/23 03:01 92/68 L 04/22/23 03:01 94 H 24 75 L 04/22/23 03:00 92 H 25 H 96 04/22/23 02:30 95 H 24 92 04/22/23 02:00 97 H 29 H 90 04/22/23 01:31 83/67 L 04/22/23 01:31 96 H 25 H 04/22/23 01:30 95 H 30 H 04/22/23 01:16 121/75 04/22/23 01:16 98 H 23 83 L 04/22/23 01:00 102/64 04/22/23 01:00 96 H 30 H 91 04/22/23 00:46 97/60 L 04/22/23 00:46 98 H 25 H 92 04/22/23 00:30 130/78 04/22/23 00:30 104 H 31 H 86 L 04/22/23 00:30 27 H 94 04/22/23 00:15 127/85 04/22/23 00:15 108 H 26 H 87 L 04/22/23 00:00 116/73 04/22/23 00:00 104 H 38 H 90 04/21/23 23:45 110 H 28 H 88 L 04/21/23 23:45 131/76 04/21/23 23:31 125/90 04/21/23 23:31 105 H 24 88 L 04/21/23 23:30 102 H 37 H 87 L 04/21/23 23:15 88/63 L 04/21/23 23:15 105 H 25 H 86 L 04/21/23 23:01 90/63 L 04/21/23 23:01 105 H 28 H 91 04/21/23 23:00 106 H 23 90 04/21/23 22:45 Oxymask 10 04/21/23 22:30 108 H 27 H 84 L 04/21/23 22:30 88/53 L 04/21/23 22:15 85/68 L 04/21/23 22:15 109 H 31 H 89 L 04/21/23 22:00 91/63 L 04/21/23 22:00 109 H 24 91 04/21/23 21:45 84/57 L 04/21/23 21:45 110 H 23 92 04/21/23 21:30 88/62 L 04/21/23 21:30 113 H 24 93 04/21/23 21:26 115 H 25 H 92 04/21/23 21:26 87/58 L 04/21/23 21:00 78/55 L 04/21/23 21:00 117 H 28 H 94 04/21/23 20:51 89/60 L 04/21/23 20:51 118 H 30 H 94 FiO2 04/22/23 08:02 04/22/23 07:30 04/22/23 07:26 60 04/22/23 07:00 04/22/23 07:00 04/22/23 06:30 04/22/23 06:00 04/22/23 06:00 04/22/23 05:30 04/22/23 05:00 04/22/23 05:00 04/22/23 04:30 04/22/23 04:00 04/22/23 04:00 04/22/23 03:30 04/22/23 03:21 60 04/22/23 03:01 04/22/23 03:01 04/22/23 03:00 04/22/23 02:30 04/22/23 02:00 04/22/23 01:31 04/22/23 01:31 04/22/23 01:30 04/22/23 01:16 04/22/23 01:16 04/22/23 01:00 04/22/23 01:00 04/22/23 00:46 04/22/23 00:46 04/22/23 00:30 04/22/23 00:30 04/22/23 00:30 60 04/22/23 00:15 04/22/23 00:15 04/22/23 00:00 04/22/23 00:00 04/21/23 23:45 04/21/23 23:45 04/21/23 23:31 04/21/23 23:31 04/21/23 23:30 04/21/23 23:15 04/21/23 23:15 04/21/23 23:01 04/21/23 23:01 04/21/23 23:00 04/21/23 22:45 04/21/23 22:30 04/21/23 22:30 04/21/23 22:15 04/21/23 22:15 04/21/23 22:00 04/21/23 22:00 04/21/23 21:45 04/21/23 21:45 04/21/23 21:30 04/21/23 21:30 04/21/23 21:26 04/21/23 21:26 04/21/23 21:00 04/21/23 21:00 04/21/23 20:51 04/21/23 20:51
[2023-04-22] MEDS ORDERED: NON-FORMULARY MEDICATION (Fluticasone-Umeclidin-Vilanter [Trelegy Ellipta] 100-62.5-25 mcg INH SCH (09:00)
[2023-04-22 09:12] LABS: ANTI-Xa, UFH(UnfractionatedHep 0.78 IU/ml (0.3-0.7)
[2023-04-22] MEDS: MAX Conc; 32mg in 250mL IV SCH (10:43)
[2023-04-22] MEDS: CALCIUM GLUCONATE 10% 1,000 MG in NS X1 BAG IV ONE (10:44)
[2023-04-22] MEDS: PANTOprazole 40 MG in SYRINGE 0 ML IV SCH (10:46)
[2023-04-22] MEDS: CIPROFLOXACIN / D5W 400 MG/200 ML BAG IV SCH (12:01)
[2023-04-22 16:11] LABS: ANTI-Xa, UFH(UnfractionatedHep 0.69 IU/ml (0.3-0.7)
[2023-04-22 16:36] LABS: Calcium 6.6 mg/dl (8.6-10.3); Creatinine Clr Calc Pharmacy 52.2 ml/min; Est GFR (African American) 64.4 ml/min; Est GFR (Non-African American) 55.6 ml/min; Potassium 3.6 mmol/L (3.5-5.1)
[2023-04-22] MEDS: HYDROCORTISONE SOD 50 MG in SYRINGE 0 ML IV SCH (18:25)
--- NOTE | 2023-04-22 18:57 | Procedure Note ---
Procedure Note Date of Service April 22, 2023 Note ARTERIAL LINE PROCEDURE NOTE: Procedure: Arterial Line Placement Attending: Dr. Kamara APC: Elin Mars PA-C Indication: Monitoring on Pressors Anesthesia: Lidocaine 1% Verbak consent obtained. Indication, risks, and benefits were explained at length. A time-out was completed verifying correct patient, procedure, site, positioning, and implant(s) or special equipment if applicable. Allens test was performed to ensure adequate perfusion. Patients L wrist was prepped and draped in the usual sterile fashion. Ultrasound guidance was used to aid needle placement. A 20g Arrow arterial line was introduced into the radial artery. Catheter was threaded, and the needle was removed with appropriate blood return. Good waveform was observed. The patient tolerated the procedure well. Blood Loss: Minimal Complications: None, 3 attempts Procedural Ultrasound Guidance: Procedure Date: 04/21/2023 Attending: Dr. Kamara APC: Elin Mars PA-C Artery Identified: YES Complications: NONE Patient tolerated procedure: WELL Coding
--- NOTE | 2023-04-22 19:00 | Procedure Note ---
Procedure Note Date of Service April 22, 2023 Note INTERNAL JUGULAR CENTRAL LINE PROCEDURE NOTE: Procedure: Internal Jugular Central Line Placement Attending: Dr. Kamara APC: Elin Mars PA-C Indication: Central Drug Administration, Poor Venous Access, Multiple Lab Draws Necessary, etc. Anesthesia: Lidocaine 1% Verbal consent obtained. Indication, risks, and benefits were explained at length. A time-out was completed verifying correct patient, procedure, site, positioning, and implants(s) or special equipment if applicable. Patients R Neck was cleansed and draped in the typical sterile fashion using Chloraprep. The Internal Jugular Vein and Carotid Artery were identified using ultrasound. The superficial tissue was anesthetized using 5 mL of 1% lidocaine without epinephrine under direct visualization with the ultrasound. After adequate anesthetization was achieved, the Internal Jugular vein was cannulated under direct ultrasound guidance using an introducer needle on a syringe. Good venous blood return was maintained prior to removal of syringe from introducer needle. Using Seldinger Technique, a guide wire was advanced through the introducer needle without resistance. The introducer needle was removed and ultrasound images were obtained of the guide wire within the Internal Jugular Vein. A small incision was made in penetrating fashion at the guide wire insertion site utilizing an 11 blade scalpel. The dilator was advanced to the vessel without resistance. The dilator was exchanged for the triple lumen catheter which was advanced into the vessel without resistance. The guide wire was removed intact from the catheter without issue. Claves were placed on each catheter tip with confirmation of good blood flow from each lumen. Each port was easily flushed with sterile saline. The catheter was placed at 17 cm and sutured in place. A sterile CHG-embedded Tegaderm dressing was applied over the catheter with careful attention to sterility. Patient tolerated procedure well. No immediate complications were met. Post procedure x-ray was completed, placement was appropriate and no pneu mothorax was noted. Procedural Ultrasound Guidance: Procedure Date: 04/21/2023 Attending: Dr. Kamara APC: Elin Mars PA-C Artery AND Vein visualized: Yes Compressible Vein: Yes Guidewire or Short Catheter seen in vein prior to dilation: Yes on two views Coding
[2023-04-22] MEDS ORDERED: 0.2 MICRON FILTER SET 1 EACH IV ONE (19:34)
[2023-04-22] MEDS: AMIODARONE / D5W 150 MG/100 ML BAG IV STA (19:45)
--- NOTE | 2023-04-22 22:57 | Hospitalist Progress Note ---
Date of Service April 22, 2023 Assessment & Plan (1) Sepsis: Plan: Acute on chronic hypoxic respiratory failure Multifactorial with history of COPD, lung cancer, and sepsis Sepsis Suspect pulmonary source With productive cough, new, and suspected bilateral lower lobe airspace opacities. Patient has had 1 day of fever chills and sweats. No abdominal or urinary symptoms Blood cultures drawn. Sputum culture ordered 30 cc/kg fluid bolus 2334 cc met, patient ordered for 3 L NSS at time of hospitalist consultation. Remains hypotensive. Repeat lactate ordered. Random cortisol ordered. Patient has been on dexamethasone on Thursday/Mondays, is at risk for secondary AI. Secondary underlying COPD history. Methylprednisolone 125 mg x 1 followed by 40 mg twice daily ordered - increased risk due to undergoing chemotherapy neutropenia. Antibiotics expa nded on admission to include MRSA and atypical coverage. Wean based on MRSA nare and sputum if positive Patient completed 2000 cc of resuscitation at time of consultation. Repeat lactate, remaining sepsis bolus switch to Plasma-Lyte, and cortisol ordered at time of consultation -VB.2 / on 04/21 Patient remains on pressors: levophed continue broad spectrum antibiotics as patient has bacteremia. appreciate ICU input. (2) Adenocarcinoma of left lung, stage 3: Plan: - Started chemoradiation 3 weeks ago, has not received Neupogen/Neulasta (3) Neutropenia: Plan: Neutropenia With chemotherapy. Oncology consulted Neutropenic precautions. Broad antibiotics as above (4) Chronic obstructive pulmonary disease: Plan: COPD Continue home inhaler Titrate oxygen to SpO2 89% With acute exacerbation in the setting of sepsis? Pneumonia Covered with antibiotics as above Steroids as above Incentive spirometry, flutter valve (5) Hypoxia: (6) Elevated troponin: Plan: Troponin elevation No chest pain at any point, suspect demand Trended (7) ABHISHEK (acute kidney injury): Plan: ABHISHEK hyponatremia Prerenal due to sepsis, creatinine baseline 1.3 elevated on admission to 1.9 Fluids as noted Trend daily, renally adjust medications sodium downtrending will monitor (8) Afib: Plan: On reassessment patient in [facility], no prior history of this. Rates [id number]. Discussed with ICU, placed on adjunct amiodarone. Low dose heparin for stroke prophylaxis Admission and Anticipated Discharge Date Admission Date: April 21, 2023 Subjective Patient reports feeling better. breathing has improved. no nausea, vomiting Review of Systems Review of Systems: All systems reviewed & are unremarkable except as noted in HPI & below Physical Exam Physical Exam: General: A&Ox3. NAD. Cooperative. Pulm: diminished in the bases. Cardiac: RRR -mrg. Radial pulses intact and symmetrical. Abdominal: Nontender, nondistended, soft. BS present. Ext: warm, dry Results & Data Results & Data Vital Signs (Past 12 Hours) Vital Signs Temp Pulse Pulse Resp BP Pulse Ox O2 Del Method 04/22/23 22:00 87/52 L 04/22/23 22:00 121 H 19 90 04/22/23 21:00 83/61 L 04/22/23 21:00 115 H 26 H 90 04/22/23 20:30 130 H 28 H 89 L 04/22/23 20:22 116 H 22 89 L High Flow Nasal Cannula 04/22/23 20:00 88/57 L 04/22/23 20:00 115 H 24 86 L 04/22/23 19:00 97 H 23 89 L 04/22/23 19:00 89/55 L 04/22/23 18:00 87/49 L 04/22/23 18:00 99 H 21 90 04/22/23 17:30 91 H 23 90 04/22/23 17:00 94 H 18 91 04/22/23 17:00 88/51 L 04/22/23 16:30 95 H 25 H 91 04/22/23 16:00 92/58 L 04/22/23 16:00 98 H 22 91 04/22/23 15:42 19 90 High Flow Nasal Cannula 04/22/23 15:30 97 H 19 93 04/22/23 15:00 36.8 C 04/22/23 15:00 99/55 L 04/22/23 15:00 97 H 22 89 L 04/22/23 14:30 96 H 25 H 90 04/22/23 14:00 96 H 22 90 04/22/23 14:00 89/53 L 04/22/23 13:57 96 H 04/22/23 13:30 94 H 21 91 04/22/23 13:00 94/55 L 04/22/23 13:00 97 H 24 90 04/22/23 12:30 95 H 17 95 04/22/23 12:00 87/53 L 04/22/23 12:00 92 H 22 94 04/22/23 11:30 92 H 22 90 04/22/23 11:30 36.9 C 04/22/23 11:00 91 H 24 91 04/22/23 11:00 96/66 L O2 Flow Rate FiO2 04/22/23 22:00 04/22/23 22:00 04/22/23 21:00 04/22/23 21:00 04/22/23 20:30 04/22/23 20:22 30 70 04/22/23 20:00 04/22/23 20:00 30 70 04/22/23 19:00 30 70 04/22/23 19:00 04/22/23 18:00 04/22/23 18:00 04/22/23 17:30 04/22/23 17:00 04/22/23 17:00 04/22/23 16:30 04/22/23 16:00 04/22/23 16:00 04/22/23 15:42 30 70 04/22/23 15:30 04/22/23 15:00 04/22/23 15:00 04/22/23 15:00 04/22/23 14:30 04/22/23 14:00 04/22/23 14:00 04/22/23 13:57 04/22/23 13:30 04/22/23 13:00 04/22/23 13:00 04/22/23 12:30 04/22/23 12:00 04/22/23 12:00 04/22/23 11:30 04/22/23 11:30 04/22/23 11:00 04/22/23 11:00 PG Care Time/CCT Total # of Minutes Spent Total Time Spent with Patient: Total time spent is greater than 50% in coordination of care (as documented) at patient's floor/unit and/or counseling patient: Coding Level of Care Code 91983 SUB INP/OBS CARE 3/50MIN Diagnoses Sepsis A41.9 Adenocarcinoma of left lung, stage 3 C34.92 Neutropenia D70.9 Centrilobular emphysema J43.2 COPD type: emphysema Emphysema type: centrilobular Hypoxia R09.02 Elevated troponin R79.89 ABHIHSEK (acute kidney injury) N17.9 Afib I48.91 (4) 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
[2023-04-22] MEDS: LACTATED RINGER'S 500 ML IV ONE (23:03)
[2023-04-23 04:30] LABS: BUN Creatinine Ratio 24.3 (10-20); Calcium 6.7 mg/dl (8.6-10.3); Est GFR (African American) 58.2 ml/min; Est GFR (Non-African American) 50.2 ml/min; Magnesium 2.2 mg/dl (1.7-2.4); Phosphorus 3.3 mg/dl (2.5-4.9); Potassium 3.6 mmol/L (3.5-5.1)
[2023-04-23 04:58] LABS: Basophils # (auto) 0.02 K/uL (0.00-0.20); Basophils % (auto) 1.6 %; Echinocytes 2+; Hemoglobin 10.5 g/dl (14.0-18.0); Immature Granulocytes # (auto) 0.02 K/uL (0.01-0.20); Immature Granulocytes % (auto) 1.6 %; Lymphocytes # (auto) 0.06 K/uL (1.20-3.40); Lymphocytes % (auto) 4.9 %; Mean Corpuscular Hemoglobin 31.3 pg (25.0-34.0); Mean Corpuscular Volume 89.6 fL (80.0-100.0); Mean Platelet Volume 10.3 fL (9.4-12.4); Monocytes # (auto) 0.02 K/uL (0.11-0.59); Monocytes % (auto) 1.6 %; Neutrophils % (auto) 90.3 %; Platelet Count 69 K/uL (130-400); Platelet Estimate Decreased (Normal); RDW Coefficient of Variation 14.1 % (11.5-14.5); RDW Standard Deviation 45.4 fL (36.4-46.3); Red Blood Count 3.35 M/uL (4.70-6.10); Toxic Granulation 1+; White Blood Count 1.22 K/ul (4.8-10.8)
[2023-04-23] MEDS: POTASSIUM CHLORIDE / WTR 20 MEQ/100 ML PLCT IV SCH (06:00)
[2023-04-23] MEDS: LACTATED RINGER'S 500 ML IV ONE (06:00)
--- NOTE | 2023-04-23 07:06 | Critical Care Progress Note ---
Date of Service April 23, 2023 Assessment & Plan (1) Afib: (2) Neutropenia: (3) Septic shock: (4) Adenocarcinoma of left lung, stage 3: (5) ABHISHEK (acute kidney injury): (6) Lactic acidosis: Plan Reason Critically Ill: 78-year-old male admitted to the hospital because of septic shock for multilobar pneumonia Past medical history of stage III adenocarcinoma of the lung currently going chemo and radiation Neuro - [facility] ICU: Negative No acute needs Cardiac - --Septic shock Likely from multilobar pneumonia Continue with vasopressor support to keep MAP greater than 65 Random cortisol 36 Patient was getting dexamethasone as an outpatient, continue with hydrocortisone based on the latest studies in patients presenting with severe pneumonia -- A-fib with RVR Likely from underlying sepsis Continue heparin and amiodarone Follow-up cardiology Respiratory - -- Acute hypoxic respiratory failure Secondary to multilobar pneumonia Encourage deep breathing, IS/Flutter SpO2 goal > 88 CT PE negative for PE, confirmed multifocal pneumonia --Poorly differentiated adenocarcinoma of the lung Robotic navigational bronchoscopy 01/27/2023 revealed poorly differentiated adenocarcinoma in 2 different lung nodules. ET scan 01/15/2023 revealed PET avid nodules in the lingula and also in the left lower lobe. Pathological stage of T4/N0/M0. Clinical stage IIIa disease. Patient likely a poor candidate for surgery given poor PFTs. FEV1 03/22/2021 was 1.30 L, 44%. DLCO 63%. Outpatient PFT GI - Bowel regimen: Hold given diarrhea on presentation RENAL/LYTES - -- ABHISHEK Likely from septic shock Monitor BUN/creatinine Avoid nephrotoxic medications Strict ins and outs - Continue with Crooks catheter ENDO - Stress-dosed steroids as ordered ICU hyperglycemia protocol --Hypocalcemia Corrected calcium 7.5 HEME - -- New onset thrombocytopenia 4T score 3, probability of HIT is less than 5% Likely from underlying sepsis Continue to monitor -- Neutropenia with ANC less than 500 Continue with antibiotics and neutropenic precautions Patient has been getting filgrastim ID - -- Gram-negative bacteremia likely Pseudomonas Follow-up sensitivities Continue with antibiotics Vancomycin discontinued 04/22/2023 Nasal MRSA negative SARS-CoV-2, influenza A/B, RSV all negative --Prophylaxis VTE: Heparin drip GI: Pantoprazole Lines: Right IJ, right radial, positive Crooks Diet: N.p.o. Plan: In/out: +761 LAMA, urine output 2076, +4.8 L since coming to the hospital AB. Thrombocytopenia is most likely from underlying sepsis. He is on heparin drip the drop of platelets is greater than 50%. 4T score is 3 which gives low probability of HIT. Continue with heparin drip for the time being if there is still drop and platelets then I will hold the heparin Potassium being replaced Patient did get a liter of fluid overnight and is making good amount of urine. I will give the patient 100 mL and are of normal saline for 1 L and then reassess to see if he will benefit from more. Try to titrate down vasopressors to keep MAP greater than 65 Will give another gram of calcium gluconate today Continue with hydrocortisone 50 mg every 12 I have personally spent 42 minutes of critical care time in the direct management of this patient. This is a life/limb threatening event. This includes time spent evaluating patient, direct bedside care, chart review, placing orders, interpretation of diagnostic studies, discussion with consultants, patient, and family members, as well as other required patient management activities. This time is exclusive of all separately billable procedures, and teaching time and separate from and in addition to any other critical care service time. Admission and Anticipated Discharge Date Admission Date: April 21, 2023 Subjective Patient seen and examined at bedside. No acute distress. Overnight patient went into A-fib RVR for which she was given another bolus 150 mg of amiodarone He was on 0.07 of Levophed at the time of examination with a MAP in the mid to low 60s. Overall he says he is feeling better compared to yesterday Denies any abdominal pain No chest pain No nausea vomiting. Has been coughing and bringing up clear phlegm. Denies any chest congestion Review of Systems 2 Review of Systems: All systems reviewed & are unremarkable except as noted in Subjective Physical Exam 2 Physical Exam: Constitutional: No acute distress HEENT: EOMI, PERRLA Respiratory system: Decreased air entry bilaterally, no wheeze, Positive crackles bilateral lower lobes, more on the right side CVS: S1-S2 positive, no murmurs or gallops Abdomen: Soft, nontender, nondistended, positive bowel sounds x4 Extremities: +2 pulses bilaterally radialis/ dorsalis pedis, no cyanosis, +1 edema bilateral lower extremity Neuro: Awake alert oriented x3 Psych: Normal mood and affect G/U: Positive Crooks Skin: no rashes, warm and dry Lymphatic: no cervical or axillary lymphadenopathy Results & Data Results & Data Vital Signs (Past 12 Hours) Vital Signs Temp Pulse Pulse Resp BP Pulse Ox O2 Del Method 04/23/23 06:00 36.6 C 04/23/23 06:00 110 H 20 89/57 L 93 BiPAP 04/23/23 05:02 93/59 L 04/23/23 05:02 114 H 18 92 04/23/23 05:00 113 H 21 86 L 04/23/23 05:00 76/54 L 04/23/23 04:00 140 H 124/59 L 04/23/23 04:00 122/77 04/23/23 04:00 140 H 19 87 L 04/23/23 04:00 36.6 C 04/23/23 03:03 122 H 21 93 04/23/23 03:03 98/59 L 04/23/23 03:01 104 H 26 H 92 04/23/23 03:01 74/56 L 04/23/23 03:00 79/57 L 04/23/23 03:00 106 H 33 H 90 04/23/23 02:47 119 H 19 92 04/23/23 02:00 36.9 C 04/23/23 02:00 83/60 L 04/23/23 02:00 119 H 20 94 04/23/23 01:00 82/61 L 04/23/23 01:00 124 H 19 94 04/23/23 00:00 107 H 103/57 L 04/23/23 00:00 36.8 C 04/23/23 00:00 95/67 L 04/23/23 00:00 107 H 26 H 94 04/23/23 00:00 112 H 04/22/23 23:00 90/63 L 04/22/23 23:00 117 H 20 04/22/23 22:45 120 H 20 92 04/22/23 22:00 87/52 L 04/22/23 22:00 121 H 19 90 04/22/23 21:00 83/61 L 04/22/23 21:00 115 H 26 H 90 04/22/23 20:30 130 H 28 H 89 L 04/22/23 20:22 116 H 22 89 L High Flow Nasal Cannula 04/22/23 20:00 115 H 90/50 L 04/22/23 20:00 37.1 C 04/22/23 20:00 88/57 L 04/22/23 20:00 115 H 24 86 L O2 Flow Rate FiO2 04/23/23 06:00 04/23/23 06:00 04/23/23 05:02 04/23/23 05:02 04/23/23 05:00 04/23/23 05:00 04/23/23 04:00 04/23/23 04:00 04/23/23 04:00 04/23/23 04:00 04/23/23 03:03 04/23/23 03:03 04/23/23 03:01 04/23/23 03:01 04/23/23 03:00 04/23/23 03:00 04/23/23 02:47 60 04/23/23 02:00 04/23/23 02:00 04/23/23 02:00 04/23/23 01:00 04/23/23 01:00 04/23/23 00:00 04/23/23 00:00 04/23/23 00:00 04/23/23 00:00 04/23/23 00:00 04/22/23 23:00 04/22/23 23:00 04/22/23 22:45 70 04/22/23 22:00 04/22/23 22:00 04/22/23 21:00 04/22/23 21:00 04/22/23 20:30 04/22/23 20:22 30 70 04/22/23 20:00 04/22/23 20:00 04/22/23 20:00 04/22/23 20:00 30 70 Laboratory Results 04/23/23 03:32 04/23/23 03:32 Coding Level of Care Code 33303 CRITICAL CARE 1ST 30-74M Diagnoses Afib I48.91 Neutropenia D70.9 Septic shock A41.9; R65.21 Adenocarcinoma of left lung, stage 3 C34.92 ABHISHEK (acute kidney injury) N17.9 Lactic acidosis E87.20
--- NOTE | 2023-04-23 07:25 | Hospitalist Progress Note ---
Date of Service April 23, 2023 Assessment & Plan (1) Sepsis: Plan: Acute on chronic hypoxic respiratory failure Multifactorial with history of COPD, lung cancer, and sepsis Sepsis required pressors Suspect pulmonary source gram negative pneumonia Blood cultures resulted 3/4 with Gram negative bacteremia Sputum culture ordered -Cefepime and Cipro at present -volume resuscitated Random cortisol normal . Patient has been on dexamethasone on Thursday/Mondays, is at risk for secondary AI. Pt remains on hydrocortisone chemotherapy induced neutropenia resolved (2) Adenocarcinoma of left lung, stage 3: Plan: - metastatic adenocarcinoma in left lung, no furthers sited, deemed not surgical candidate due to copcccccccd Started chemoradiation 3 weeks ago, has not received Neupogen/Neulasta (3) Elevated troponin: Plan: Troponin elevation No chest pain at any point, suspect demand ischemia -Echo shows chronic combined heart failure, EF 45% (4) ABHISHEK (acute kidney injury): Plan: ABHISEHK wit CKD 3 hyponatremia sodium downtrending is NPO will manage free water with ivf, can consider hypertonic saline (5) Afib: Plan: On reassessment patient in new A-fib, no prior history of this. Rates [id number]. Amiodarone on heparin at prophylactic doses Admission and Anticipated Discharge Date Admission Date: April 21, 2023 Subjective Patient in much better spirits and improving clinically Family at bedside and updated. Patient expresses desire to go home but is understanding that he is significantly ill Patient expresses appetite will begin to advance diet Physical Exam Physical Exam: Awake alert appropriate Card exam is regular without murmurs Lungs have coarse breath sounds bibasilar Abdomen normal active bowel sounds soft and nontender Extremities are without Results & Data Results & Data Vital Signs (Past 12 Hours) Vital Signs Temp Pulse Pulse Resp BP Pulse Ox O2 Del Method 04/23/23 06:00 97.8 F 04/23/23 06:00 110 H 20 89/57 L 93 BiPAP 04/23/23 05:02 93/59 L 04/23/23 05:02 114 H 18 92 04/23/23 05:00 113 H 21 86 L 04/23/23 05:00 76/54 L 04/23/23 04:00 140 H 124/59 L 04/23/23 04:00 122/77 04/23/23 04:00 140 H 19 87 L 04/23/23 04:00 97.9 F 04/23/23 03:03 122 H 21 93 04/23/23 03:03 98/59 L 04/23/23 03:01 104 H 26 H 92 04/23/23 03:01 74/56 L 04/23/23 03:00 79/57 L 04/23/23 03:00 106 H 33 H 90 04/23/23 02:47 119 H 19 92 04/23/23 02:00 98.4 F 04/23/23 02:00 83/60 L 04/23/23 02:00 119 H 20 94 04/23/23 01:00 82/61 L 04/23/23 01:00 124 H 19 94 04/23/23 00:00 107 H 103/57 L 04/23/23 00:00 98.2 F 04/23/23 00:00 95/67 L 04/23/23 00:00 107 H 26 H 94 04/23/23 00:00 112 H 04/22/23 23:00 90/63 L 04/22/23 23:00 117 H 20 04/22/23 22:45 120 H 20 92 04/22/23 22:00 87/52 L 04/22/23 22:00 121 H 19 90 04/22/23 21:00 83/61 L 04/22/23 21:00 115 H 26 H 90 04/22/23 20:30 130 H 28 H 89 L 04/22/23 20:22 116 H 22 89 L High Flow Nasal Cannula 04/22/23 20:00 115 H 90/50 L 04/22/23 20:00 98.8 F 04/22/23 20:00 88/57 L 04/22/23 20:00 115 H 24 86 L O2 Flow Rate FiO2 04/23/23 06:00 04/23/23 06:00 04/23/23 05:02 04/23/23 05:02 04/23/23 05:00 04/23/23 05:00 04/23/23 04:00 04/23/23 04:00 04/23/23 04:00 04/23/23 04:00 04/23/23 03:03 04/23/23 03:03 04/23/23 03:01 04/23/23 03:01 04/23/23 03:00 04/23/23 03:00 04/23/23 02:47 60 04/23/23 02:00 04/23/23 02:00 04/23/23 02:00 04/23/23 01:00 04/23/23 01:00 04/23/23 00:00 04/23/23 00:00 04/23/23 00:00 04/23/23 00:00 04/23/23 00:00 04/22/23 23:00 04/22/23 23:00 04/22/23 22:45 70 04/22/23 22:00 04/22/23 22:00 04/22/23 21:00 04/22/23 21:00 04/22/23 20:30 04/22/23 20:22 30 70 04/22/23 20:00 04/22/23 20:00 04/22/23 20:00 04/22/23 20:00 30 70 Laboratory Results Reviewed CBC no longer neutropenic Reviewed chemistry PG Care Time/CCT Total # of Minutes Spent Total Time Spent with Patient: Total time spent is greater than 50% in coordination of care (as documented) at patient's floor/unit and/or counseling patient: Coding Level of Care Code 89518 SUB INP/OBS CARE 3/50MIN Diagnoses Sepsis A41.9 Adenocarcinoma of left lung, stage 3 C34.92 Elevated troponin R79.89 ABHISHEK (acute kidney injury) N17.9 Afib I48.91
[2023-04-23] MEDS: SODIUM CHLORIDE 0.9% 1,000 ML IV SCH (09:00)
[2023-04-23] MEDS: CALCIUM GLUCONATE 1,000 MG/60 ML BAG IV ONE (11:22)
[2023-04-23] MEDS: HYDROCORTISONE SOD 50 MG in SYRINGE 0 ML IV SCH (12:06)
[2023-04-23] MEDS ORDERED: HYDROCORTISONE SOD 50 MG in SYRINGE 0 ML IV SCH (14:00)
[2023-04-23] MEDS ORDERED: levoFLOXacin/D5W 750 MG/150 ML BAG IV SCH (18:00)
[2023-04-24 04:57] LABS: BUN Creatinine Ratio 36.1 (10-20); Calcium 6.8 mg/dl (8.6-10.3); Creatinine Clr Calc Pharmacy 48.2 ml/min; Est GFR (African American) 66.3 ml/min; Est GFR (Non-African American) 57.2 ml/min; Magnesium 2.3 mg/dl (1.7-2.4); Phosphorus 3.4 mg/dl (2.5-4.9); Potassium 3.9 mmol/L (3.5-5.1)
[2023-04-24 05:42] LABS: Hematocrit (blood only) 29.1 % (42.0-52.0); Hemoglobin 10.3 g/dl (14.0-18.0); Mean Corpuscular Hemoglobin 31.6 pg (25.0-34.0); Mean Corpuscular Hgb Conc 35.4 g/dL (32.0-36.0); Mean Corpuscular Volume 89.3 fL (80.0-100.0); Mean Platelet Volume 11.1 fL (9.4-12.4); Platelet Count 25 K/uL (130-400); RDW Coefficient of Variation 13.8 % (11.5-14.5); RDW Standard Deviation 44.4 fL (36.4-46.3); Red Blood Count 3.26 M/uL (4.70-6.10); White Blood Count 2.14 K/ul (4.8-10.8)
--- NOTE | 2023-04-24 05:43 | Electrocardiogram Report ---
Test Reason : Blood Pressure : / mmHG Vent. Rate : 133 BPM Atrial Rate : 133 BPM P-R Int : 126 ms QRS Dur : 086 ms QT Int : 278 ms P-R-T Axes : 083 058 041 degrees QTc Int : 413 ms Sinus tachycardia Incomplete right bundle branch block When compared with ECG of 29-JAN-2023 14:41, Premature ventricular complexes are no longer Present Vent. rate has increased BY 62 BPM Confirmed by Naveen Gamez ([id number]) on 04/24/2023 5:43:17 AM Referred By: Confirmed By:Naveen Gamez
[2023-04-24 05:45] LABS: Basophils # (auto) 0.02 K/uL (0.00-0.20); Basophils % (auto) 0.9 %; Echinocytes 3+; Immature Granulocytes # (auto) 0.13 K/uL (0.01-0.20); Immature Granulocytes % (auto) 6.1 %; Lymphocytes # (auto) 0.11 K/uL (1.20-3.40); Lymphocytes % (auto) 5.1 %; Monocytes # (auto) 0.04 K/uL (0.11-0.59); Monocytes % (auto) 1.9 %; Neutrophils # (auto) 1.84 K/uL (1.40-6.50); Platelet Estimate Signific. Decreased (Normal); Toxic Granulation 1+; Toxic Vacuolation 1+
--- NOTE | 2023-04-24 05:59 | Electrocardiogram Report ---
Test Reason : Blood Pressure : / mmHG Vent. Rate : 144 BPM Atrial Rate : 000 BPM P-R Int : 000 ms QRS Dur : 086 ms QT Int : 270 ms P-R-T Axes : 000 021 021 degrees QTc Int : 418 ms Atrial fibrillation with rapid ventricular response Abnormal ECG When compared with ECG of 21-APR-2023 14:56, Atrial fibrillation has replaced Sinus rhythm Confirmed by Naveen Gamez ([id number]) on 04/24/2023 5:58:58 AM Referred By: Jaqueline Roque Confirmed By:Naveen Gamez
[2023-04-24] MEDS: CALCIUM CHLORIDE 10% 1,000 MG in DEXTROSE 5% 50 ML IV ONE (06:47)
--- NOTE | 2023-04-24 07:13 | XRay Report ---
XR chest 1V portable HISTORY: 78 years-old Male f/u acute shortness of breath COMPARISON: 04/22/2023 TECHNIQUE: AP view of the chest FINDINGS: Right IJ central venous catheter is unchanged. Cardiomediastinal and hilar silhouettes are stable. Pu lmonary emphysema with chronic interstitial coarsening. No pneumothorax, or pleural effusion. Patchy bibasilar and midlung airspace opacities are redemonstrated. Bones appear grossly intact. IMPRESSION: 1. No significant change in the bibasilar predominant multifocal pneumonia. 2. Stable positioning of the right IJ central venous catheter. 3. Emphysema. ACT 112: Negative or not required by law. The above report was generated using voice recognition software. It may contain grammatical, syntax o r spelling errors. Electronically signed by: Tacho Carlin M.D. 04/24/2023 7:12 AM
--- NOTE | 2023-04-24 07:33 | Hospitalist Progress Note ---
Date of Service April 24, 2023 Assessment & Plan (1) Sepsis: Plan: Acute on chronic hypoxic respiratory failure Multifactorial with history of COPD, lung cancer, and sepsis Sepsis required pressors Suspect pulmonary source gram negative pneumonia Blood cultures resulted 3/4 with Gram negative bacteremia Sputum culture ordered -Cefepime -volume resuscitated Random cortisol normal . Patient has been on dexamethasone on Thursday/Mondays, is at risk for secondary AI. Pt remains on hydrocortisone Antineoplastic chemotherapy induced pancytopenia, neutropenia resolved, Platelets are going down, not perfect timing for HIT will check (2) Adenocarcinoma of left lung, stage 3: Plan: - metastatic adenocarcinoma in left lung, no furthers sited, deemed not surgical candidate due to copd Started chemoradiation 3 weeks ago, has not received Neupogen/Neulasta (3) Elevated troponin: Plan: Troponin elevation No chest pain at any point, suspect demand ischemia -Echo shows chronic combined heart failure, EF 45% (4) ABHISHEK (acute kidney injury): Plan: ABHISHEK wit CKD 3 hyponatremia is stable but low (5) Afib: Plan: On reassessment patient in [facility], no prior history of this. Rates [id number]. Amiodarone, with good control will convert to po (6) Thrombopenia: Plan: Difficult to assess whether this is from his underlying illness (sepsis), antineoplastic drugs, or institution of heparin. There seems to be a precipitous decline since institution of heparin so we must consider HIT. Heparin is thus discontinued serotonin assay is sent. Timing is not particularly consistent with head as it is occurring slightly earlier in the administration of heparin however we have not yet understood the Jeovanny of the platelet level. Because this is a prophylactic treatment for atrial fibrillation we may not institute fondaparinux treatment at this time Admission and Anticipated Discharge Date Admission Date: April 21, 2023 Subjective Pt is without complaints, he remains on 2 pressors no shortness of breath at this time Physical Exam Physical Exam: Awake alert appropriate Card exam is regular without murmurs Lungs have coarse breath sounds bibasilar Abdomen normal active bowel sounds soft and nontender Extremities are without Results & Data Results & Data Vital Signs (Past 12 Hours) Vital Signs Temp Pulse Pulse Resp BP Pulse Ox O2 Del Method 04/24/23 06:00 58 L 17 93 04/24/23 06:00 102/56 L 04/24/23 05:01 69 25 H 90 04/24/23 05:01 97/63 L 04/24/23 05:00 71 14 82 L 04/24/23 04:01 60 20 94 04/24/23 04:01 108/59 L 04/24/23 04:00 59 L 20 91 04/24/23 04:00 98.2 F 04/24/23 04:00 66 103/47 L 04/24/23 03:00 59 L 17 94 04/24/23 03:00 108/65 04/24/23 02:35 58 L 16 93 04/24/23 02:00 100/52 L 04/24/23 02:00 57 L 18 92 04/24/23 02:00 98.1 F 04/24/23 01:00 108/56 L 04/24/23 01:00 58 L 17 94 04/24/23 00:00 95/59 L 04/24/23 00:00 66 21 93 04/24/23 00:00 62 104/48 L 04/24/23 00:00 63 04/24/23 00:00 98.4 F 04/23/23 23:39 60 17 90 04/23/23 23:00 62 17 89 L 04/23/23 23:00 98/56 L 04/23/23 22:00 64 20 89 L 04/23/23 22:00 97/57 L 04/23/23 21:00 96/57 L 04/23/23 21:00 70 20 88 L 04/23/23 20:15 75 18 90 High Flow Nasal Cannula 04/23/23 20:11 94/64 L 04/23/23 20:11 72 22 88 L 04/23/23 20:01 70 20 89 L 04/23/23 20:00 70 21 89 L 04/23/23 20:00 73 111/46 L 04/23/23 20:00 98.5 F 04/23/23 19:30 High Flow Nasal Cannula O2 Flow Rate FiO2 04/24/23 06:00 04/24/23 06:00 04/24/23 05:01 04/24/23 05:01 04/24/23 05:00 04/24/23 04:01 04/24/23 04:01 04/24/23 04:00 04/24/23 04:00 04/24/23 04:00 04/24/23 03:00 04/24/23 03:00 04/24/23 02:35 60 04/24/23 02:00 04/24/23 02:00 04/24/23 02:00 04/24/23 01:00 04/24/23 01:00 04/24/23 00:00 04/24/23 00:00 04/24/23 00:00 04/24/23 00:00 04/24/23 00:00 04/23/23 23:39 60 04/23/23 23:00 04/23/23 23:00 04/23/23 22:00 04/23/23 22:00 04/23/23 21:00 04/23/23 21:00 04/23/23 20:15 30 60 04/23/23 20:11 04/23/23 20:11 04/23/23 20:01 04/23/23 20:00 04/23/23 20:00 04/23/23 20:00 04/23/23 19:30 30 60 Laboratory Results reviewed cbc noted low platelets, stopped heparin and sent serotonin release assay review chemistry PG Care Time/CCT Total # of Minutes Spent Total Time Spent with Patient: Total time spent is greater than 50% in coordination of care (as documented) at patient's floor/unit and/or counseling patient: Coding Level of Care Code 18054 SUB INP/OBS CARE 3/50MIN Diagnoses Sepsis A41.9 Adenocarcinoma of left lung, stage 3 C34.92 Elevated troponin R79.89 ABHISHEK (acute kidney injury) N17.9 Afib I48.91 Thrombopenia D69.6
--- NOTE | 2023-04-24 08:25 | Critical Care Progress Note ---
Date of Service April 24, 2023 Assessment & Plan (1) Afib: (2) Neutropenia: (3) Septic shock: (4) Adenocarcinoma of left lung, stage 3: (5) ABHISHEK (acute kidney injury): (6) Lactic acidosis: Plan Reason Critically Ill: 78-year-old male admitted to the hospital because of septic shock for multilobar pneumonia Past medical history of stage III adenocarcinoma of the lung currently going chemo and radiation Neuro - [facility] ICU: Negative No acute needs Cardiac - --Septic shock Likely from multilobar pneumonia Continue with vasopressor support to keep MAP greater than 65 Random cortisol 36 Patient was getting dexamethasone as an outpatient, continue with hydrocortisone based on the latest studies in patients presenting with severe pneumonia -- A-fib with RVR Likely from underlying sepsis Continue heparin and amiodarone Follow-up cardiology Respiratory - -- Acute hypoxic respiratory failure Secondary to multilobar pneumonia Encourage deep breathing, IS/Flutter SpO2 goal > 88 CT PE negative for PE, confirmed multifocal pneumonia --Poorly differentiated adenocarcinoma of the lung Robotic navigational bronchoscopy 01/27/2023 revealed poorly differentiated adenocarcinoma in 2 different lung nodules. ET scan 01/15/2023 revealed PET avid nodules in the lingula and also in the left lower lobe. Pathological stage of T4/N0/M0. Clinical stage IIIa disease. Patient likely a poor candidate for surgery given poor PFTs. FEV1 03/22/2021 was 1.30 L, 44%. DLCO 63%. Outpatient PFT GI - Bowel regimen: Hold given diarrhea on presentation RENAL/LYTES - -- ABIHSHEK Likely from septic shock Monitor BUN/creatinine Avoid nephrotoxic medications Strict ins and outs - Continue with Crooks catheter ENDO - Stress-dosed steroids as ordered ICU hyperglycemia protocol --Hypocalcemia Corrected calcium 7.5 HEME - -- New onset thrombocytopenia 4T score 3, probability of HIT is less than 5% Likely from underlying sepsis Continue to monitor -- Neutropenia with ANC less than 500 Continue with antibiotics and neutropenic precautions Patient has been getting filgrastim ID - -- Gram-negative bacteremia likely Pseudomonas Follow-up sensitivities Continue with antibiotics Vancomycin discontinued 04/22/2023, ciprofloxacin discontinued 04/23/2023 Nasal MRSA negative SARS-CoV-2, influenza A/B, RSV all negative --Prophylaxis VTE: Heparin drip on hold GI: Pantoprazole Lines: Right IJ, right radial, positive Crooks Diet: Clear liquids Plan: In/out: +1.2 L, urine output 1827, +6 L since coming to the hospital Thrombocytopenia is most likely from underlying sepsis. He is on heparin drip the drop of platelets is greater than 50%. 4T score is 3 which gives low probability of HIT. Hold heparin drip, will order Doppler bilateral lower extremity to make sure he is not having any blood clots. If it is positive then I will start him on argatroban or fondaparinux Repeat blood cultures today Potassium being replaced Try to titrate down vasopressors to keep MAP greater than 65 Patient got 1 g of calcium chloride in the morning, Will give another gram of calcium gluconate later in the evening Continue with hydrocortisone 50 mg every 6hrs for a total of 40 since initiation and then go down to 50 mg every 12 for 3 days and then 50 mg on a daily basis for 2 days I have personally spent 40 minutes of critical care time in the direct management of this patient. This is a life/limb threatening event. This includes time spent evaluating patient, direct bedside care, chart review, placing orders, interpretation of diagnostic studies, discussion with consultants, patient, and family members, as well as other required patient management activities. This time is exclusive of all separately billable procedures, and teaching time and separate from and in addition to any other critical care service time. Admission and Anticipated Discharge Date Admission Date: April 21, 2023 Subjective Patient seen and examined at bedside. No acute distress, notable since overnight. He used BiPAP overnight He was on 0.08 of Levophed and 0.04 of vasopressin with MAP in the high 70s. I was able to go down to 0.05 of Levophed. He said that he is clinically feeling better. He has been having diarrhea since last couple of days. No hematochezia Shortness of breath is improved. Has been coughing up clear phlegm. Denies any hemoptysis No headache Has been tolerating clear liquids but did complain of nausea today in the morning Review of Systems 2 Review of Systems: All systems reviewed & are unremarkable except as noted in Subjective Physical Exam 2 Physical Exam: Constitutional: No acute distress HEENT: EOMI, PERRLA Respiratory system: Decreased air entry bilaterally, no wheeze, Positive crackles bilateral lower lobes, more on the right side CVS: S1-S2 positive, no murmurs or gallops Abdomen: Soft, nontender, nondistended, positive bowel sounds x4 Extremities: +2 pulses bilaterally radialis/ dorsalis pedis, no cyanosis, +1 edema bilateral lower extremity Neuro: Awake alert oriented x3 Psych: Normal mood and affect G/U: Positive Crooks Skin: no rashes, warm and dry Lymphatic: no cervical or axillary lymphadenopathy Results & Data Results & Data Vital Signs (Past 12 Hours) Vital Signs Temp Pulse Pulse Resp BP Pulse Ox O2 Del Method 04/24/23 08:12 65 22 91 High Flow Nasal Cannula 04/24/23 08:08 High Flow Nasal Cannula 04/24/23 08:00 62 16 92 High Flow Nasal Cannula 04/24/23 08:00 121/76 04/24/23 08:00 62 121/76 04/24/23 08:00 60 04/24/23 07:00 56 L 20 91 High Flow Nasal Cannula 04/24/23 07:00 104/59 L 04/24/23 06:00 58 L 17 93 04/24/23 06:00 102/56 L 04/24/23 05:01 69 25 H 90 04/24/23 05:01 97/63 L 04/24/23 05:00 71 14 82 L 04/24/23 04:01 60 20 94 04/24/23 04:01 108/59 L 04/24/23 04:00 59 L 20 91 04/24/23 04:00 36.8 C 04/24/23 04:00 66 103/47 L 04/24/23 03:00 59 L 17 94 04/24/23 03:00 108/65 04/24/23 02:35 58 L 16 93 04/24/23 02:00 100/52 L 04/24/23 02:00 57 L 18 92 04/24/23 02:00 36.7 C 04/24/23 01:00 108/56 L 04/24/23 01:00 58 L 17 94 04/24/23 00:00 95/59 L 04/24/23 00:00 66 21 93 04/24/23 00:00 62 104/48 L 04/24/23 00:00 63 04/24/23 00:00 36.9 C 04/23/23 23:39 60 17 90 04/23/23 23:00 62 17 89 L 04/23/23 23:00 98/56 L 04/23/23 22:00 64 20 89 L 04/23/23 22:00 97/57 L 04/23/23 21:00 96/57 L 04/23/23 21:00 70 20 88 L O2 Flow Rate FiO2 04/24/23 08:12 30 60 04/24/23 08:08 30 60 04/24/23 08:00 30 04/24/23 08:00 04/24/23 08:00 04/24/23 08:00 04/24/23 07:00 30 04/24/23 07:00 04/24/23 06:00 04/24/23 06:00 04/24/23 05:01 04/24/23 05:01 04/24/23 05:00 04/24/23 04:01 04/24/23 04:01 04/24/23 04:00 04/24/23 04:00 04/24/23 04:00 04/24/23 03:00 04/24/23 03:00 04/24/23 02:35 60 04/24/23 02:00 04/24/23 02:00 04/24/23 02:00 04/24/23 01:00 04/24/23 01:00 04/24/23 00:00 04/24/23 00:00 04/24/23 00:00 04/24/23 00:00 04/24/23 00:00 04/23/23 23:39 60 04/23/23 23:00 04/23/23 23:00 04/23/23 22:00 04/23/23 22:00 04/23/23 21:00 04/23/23 21:00 Laboratory Results 04/24/23 04:18 04/24/23 04:18 Coding Level of Care Code 78218 CRITICAL CARE 1ST 30-74M Diagnoses Afib I48.91 Neutropenia D70.9 Septic shock A41.9; R65.21 Adenocarcinoma of left lung, stage 3 C34.92 ABHISHEK (acute kidney injury) N17.9 Lactic acidosis E87.20 Time Spent (min) 40
[2023-04-24] MEDS: POTASSIUM CHLORIDE / WTR 20 MEQ/100 ML PLCT IV ONE (10:08)
[2023-04-24] MEDS: Standard Conc; 4mg in 250mL IV SCH (10:08)
--- NOTE | 2023-04-24 11:32 | Ultrasound Report ---
BILATERAL LOWER EXTREMITY VENOUS DOPPLER CLINICAL HISTORY: Shortness of breath. Evaluate for deep venous thrombus. COMPARISON STUDY: No previous studies for comparison. TECHNIQUE: Sonography of the deep venous system of the bilateral lower extremities was performed. Co mpression and augmentation were evaluated. FINDINGS: The bilateral common femoral, superficial femoral and popliteal veins were compressible. A ugmentation was normal. Flow was shown within the deep calf vessels. IMPRESSION: No evidence of deep venous thrombus within the bilateral lower extremities. ACT 112: Negative or not required by law. Electronically signed by: Ascencion Hodge M.D. 04/24/2023 11:31 AM
[2023-04-24] MEDS: INSULIN ASPART PER UNIT CHARGE SC SCH (12:03)
[2023-04-24] MEDS: CALCIUM GLUCONATE 10% 1,000 MG in NS X1 BAG IV ONE (21:01)
[2023-04-25 04:54] LABS: BUN Creatinine Ratio 47.8 (10-20); Calcium 7.5 mg/dl (8.6-10.3); Creatinine Clr Calc Pharmacy 63.9 ml/min; Est GFR (African American) 93.3 ml/min; Est GFR (Non-African American) 80.5 ml/min; Magnesium 1.8 mg/dl (1.7-2.4); Phosphorus 2.3 mg/dl (2.5-4.9); Potassium 3.9 mmol/L (3.5-5.1)
[2023-04-25] MEDS: MAGNESIUM SULFATE / D5W 1 GM/100 ML BAG IV SCH (06:36)
[2023-04-25] MEDS ORDERED: POTASSIUM PHOS 3 MMOL/1 ML INFUSION IV STA (07:04)
--- NOTE | 2023-04-25 07:05 | Critical Care Progress Note ---
Date of Service April 25, 2023 Assessment & Plan (1) Afib: (2) Neutropenia: (3) Septic shock: (4) Adenocarcinoma of left lung, stage 3: (5) ABHISHEK (acute kidney injury): (6) Lactic acidosis: Plan Reason Critically Ill: 78-year-old male admitted to the hospital because of septic shock for multilobar pneumonia Past medical history of stage III adenocarcinoma of the lung currently going chemo and radiation Neuro - [facility] ICU: Negative No acute needs Cardiac - --Septic shock Likely from multilobar pneumonia Continue with vasopressor support to keep MAP greater than 65 Random cortisol 36 Patient was getting dexamethasone as an outpatient, continue with hydrocortisone based on the latest studies in patients presenting with severe pneumonia -- A-fib with RVR Likely from underlying sepsis Continue heparin and amiodarone Follow-up cardiology Respiratory - -- Acute hypoxic respiratory failure Secondary to multilobar pneumonia Encourage deep breathing, IS/Flutter SpO2 goal > 88 CT PE negative for PE, confirmed multifocal pneumonia --Poorly differentiated adenocarcinoma of the lung Robotic navigational bronchoscopy 01/27/2023 revealed poorly differentiated adenocarcinoma in 2 different lung nodules. ET scan 01/15/2023 revealed PET avid nodules in the lingula and also in the left lower lobe. Pathological stage of T4/N0/M0. Clinical stage IIIa disease. Patient likely a poor candidate for surgery given poor PFTs. FEV1 03/22/2021 was 1.30 L, 44%. DLCO 63%. Outpatient PFT GI - Bowel regimen: Hold given diarrhea on presentation RENAL/LYTES - -- ABHISHEK Likely from septic shock Monitor BUN/creatinine Avoid nephrotoxic medications Strict ins and outs - Continue with Crooks catheter ENDO - Stress-dosed steroids as ordered ICU hyperglycemia protocol -- s/p Hypocalcemia Got multiple rounds of potassium chloride and calcium HEME - -- New onset thrombocytopenia 4T score 3, probability of HIT is less than 5% Likely from underlying sepsis Continue to monitor Doppler bilateral lower extremity negative on 04/24/2023 -- S/p Neutropenia with ANC less than 500 Continue with antibiotics and neutropenic precautions Patient has been getting filgrastim ID - -- Gram-negative bacteremia likely Pseudomonas Follow-up sensitivities Continue with antibiotics Vancomycin discontinued 04/22/2023, ciprofloxacin discontinued 04/23/2023 Repeat blood culture 04/24/2023 negative to date Nasal MRSA negative SARS-CoV-2, influenza A/B, RSV all negative --Prophylaxis VTE: Heparin drip on hold GI: Pantoprazole Lines: Right IJ, right radial, positive Crooks Diet: Clear liquids Plan: In/out: - 1.5 L, urine output 2728, +4.6 L since coming to the hospital Thrombocytopenia is most likely from underlying sepsis. He is on heparin drip the drop of platelets is greater than 50%. 4T score is 3 which gives low probability of HIT. Hold heparin drip, will order Doppler bilateral lower extremity to make sure he is not having any blood clots. Given the platelet count of only 12. I will give the patient 1 single donor platelet Peripheral smear consult from pathologist. Vitamin B12 and folate ordered. I will also recheck PT/INR PTT as well as fibrinogen level Case was discussed with oncology Magnesium, phosphate and potassium being replaced Try to titrate down vasopressors to keep MAP greater than 65 Continue with hydrocortisone 50 mg every 6hrs for a total of 4 days since initiation and then go down to 50 mg every 12 for 3 days and then 50 mg on a daily basis for 2 days Out of the bed to chair I have personally spent 36 minutes of critical care time in the direct management of this patient. This is a life/limb threatening event. This includes time spent evaluating patient, direct bedside care, chart review, placing orders, interpretation of diagnostic studies, discussion with consultants, patient, and family members, as well as other required patient management activities. This time is exclusive of all separately billable procedures, and teaching time and separate from and in addition to any other critical care service time. Admission and Anticipated Discharge Date Admission Date: April 21, 2023 Subjective Patient seen and examined at bedside. No acute distress, no adverse events overnight He was on 25 L, 50% FiO2 saturating 91%. Overall she he stated that he is feeling better. Denies any headache, no nausea, no vomiting. Has been afebrile. Coughing and bringing up phlegm which is having streaks of blood. Was on Levophed 0.05 vasopressin 0.04 with maps in the mid 70s. Review of Systems 2 Review of Systems: All systems reviewed & are unremarkable except as noted in Subjective Physical Exam 2 Physical Exam: Constitutional: No acute distress HEENT: EOMI, PERRLA Respiratory system: Decreased air entry bilaterally, no wheeze, Positive crackles bilateral lower lobes, more on the right side CVS: S1-S2 positive, no murmurs or gallops Abdomen: Soft, nontender, nondistended, positive bowel sounds x4 Extremities: +2 pulses bilaterally radialis/ dorsalis pedis, no cyanosis, +1 edema bilateral lower extremity Neuro: Awake alert oriented x3 Psych: Normal mood and affect G/U: Positive Crooks Skin: no rashes, warm and dry Lymphatic: no cervical or axillary lymphadenopathy Results & Data Results & Data Vital Signs (Past 12 Hours) Vital Signs Temp Pulse Pulse Resp BP BP Pulse Ox 04/25/23 06:00 36.7 C 54 L 19 121/52 L 93 04/25/23 05:00 51 L 20 94 04/25/23 04:00 36.7 C 54 L 20 103/56 L 93 04/25/23 04:00 109/48 L 04/25/23 04:00 54 L 18 120/50 L 94 04/25/23 03:36 56 L 18 91 04/25/23 03:00 36.6 C 56 L 18 114/49 L 91 04/25/23 02:30 56 L 19 92 04/25/23 02:00 58 L 19 91 04/25/23 02:00 36.6 C 60 18 109/52 L 92 04/25/23 01:30 66 21 92 04/25/23 01:00 63 20 91 04/25/23 01:00 57 L 18 106/45 L 91 04/25/23 00:30 62 19 92 04/25/23 00:00 59 L 22 90 04/25/23 00:00 62 100/52 L 04/25/23 00:00 61 04/25/23 00:00 62 16 100/52 L 92 04/24/23 23:30 59 L 14 91 04/24/23 23:30 58 L 18 91 04/24/23 23:00 59 L 19 91 04/24/23 22:30 59 L 20 92 04/24/23 22:00 56 L 13 93 04/24/23 21:30 62 21 91 04/24/23 21:00 60 17 04/24/23 20:30 62 22 04/24/23 20:00 04/24/23 20:00 74 20 04/24/23 20:00 60 04/24/23 19:40 70 18 93 04/24/23 19:30 67 21 94 O2 Del Method O2 Flow Rate FiO2 04/25/23 06:00 High Flow Nasal Cannula 30 04/25/23 05:00 High Flow Nasal Cannula 30 04/25/23 04:00 High Flow Nasal Cannula 30 04/25/23 04:00 04/25/23 04:00 High Flow Nasal Cannula 30 04/25/23 03:36 High Flow Nasal Cannula 30 50 04/25/23 03:00 High Flow Nasal Cannula 30 04/25/23 02:30 High Flow Nasal Cannula 30 04/25/23 02:00 High Flow Nasal Cannula 30 04/25/23 02:00 High Flow Nasal Cannula 30 04/25/23 01:30 04/25/23 01:00 04/25/23 01:00 High Flow Nasal Cannula 30 04/25/23 00:30 High Flow Nasal Cannula 30 04/25/23 00:00 04/25/23 00:00 04/25/23 00:00 04/25/23 00:00 High Flow Nasal Cannula 30 04/24/23 23:30 High Flow Nasal Cannula 30 04/24/23 23:30 High Flow Nasal Cannula 30 50 04/24/23 23:00 04/24/23 22:30 04/24/23 22:00 04/24/23 21:30 High Flow Nasal Cannula 30 04/24/23 21:00 04/24/23 20:30 04/24/23 20:00 High Flow Nasal Cannula 30 04/24/23 20:00 04/24/23 20:00 04/24/23 19:40 High Flow Nasal Cannula 30 50 04/24/23 19:30 High Flow Nasal Cannula 30 Laboratory Results 04/25/23 04:12 Coding Level of Care Code 65631 CRITICAL CARE 1ST 30-74M Diagnoses Afib I48.91 Neutropenia D70.9 Septic shock A41.9; R65.21 Adenocarcinoma of left lung, stage 3 C34.92 ABHISHEK (acute kidney injury) N17.9 Lactic acidosis E87.20
[2023-04-25 07:42] LABS: Hematocrit (blood only) 27.7 % (42.0-52.0); Hemoglobin 9.9 g/dl (14.0-18.0); Mean Corpuscular Hemoglobin 31.4 pg (25.0-34.0); Mean Corpuscular Hgb Conc 35.7 g/dL (32.0-36.0); Mean Corpuscular Volume 87.9 fL (80.0-100.0); Mean Platelet Volume 12.4 fL (9.4-12.4); Platelet Count 12 K/uL (130-400); RDW Coefficient of Variation 14.2 % (11.5-14.5); RDW Standard Deviation 44.7 fL (36.4-46.3); Red Blood Count 3.15 M/uL (4.70-6.10); White Blood Count 1.62 K/ul (4.8-10.8)
[2023-04-25 07:52] LABS: Echinocytes 2+; Toxic Granulation 2+
[2023-04-25] MEDS: POTASSIUM PHOSPHATE 15 MMOL in SODIUM CHLORIDE 0.9% 250 ML IV ONE (07:54)
[2023-04-25] MEDS: AMIODARONE 200 MG TAB PO SCH (07:55)
[2023-04-25 08:02] LABS: ANC (manual) 1.44 K/uL (1.4-6.5); Dohle Bodies 1+; Monocytes # (manual) 0.08 K/uL (0.11-0.59); Neutrophils # (manual) 1.44 K/uL (1.40-6.50); Neutrophils % (manual) 89 %; Polychromasia 1+; Toxic Vacuolation 1+
[2023-04-25 11:06] LABS: Lymphocytes % (manual) 6 %; Monocytes % (manual) 5 %
[2023-04-25 11:38] LABS: Fibrinogen 405 mg/dl (184-400); INR 1.7 (0.9-1.1); Partial Thromboplastin Ratio 1.7; Partial Thromboplastin Time 49 Seconds (21-31); Prothrombin Time 17.8 Seconds (9.0-12.0)
[2023-04-25 11:58] LABS: Folate (Folic Acid),Ser orPlas 12.11 ng/ml (>5.38)
[2023-04-25 11:59] LABS: Vitamin B12 > 1500 pg/ml (180-914)
[2023-04-25] MEDS: PHYTONADIONE 5 MG TAB PO STA (14:00)
--- NOTE | 2023-04-25 17:12 | Hospitalist Progress Note ---
Date of Service April 25, 2023 Assessment & Plan (1) Sepsis: Plan: Acute on chronic hypoxic respiratory failure Multifactorial with history of COPD, lung cancer, and sepsis Sepsis required pressors Suspect pulmonary source gram negative pneumonia Blood cultures resulted 3/4 with Gram negative bacteremia Sputum culture ordered, blood cultures concern for pseudomonas -Cefepime -volume resuscitated Random cortisol normal . Patient has been on dexamethasone on Thursday/Mondays, is at risk for secondary AI. Pt remains on hydrocortisone Antineoplastic chemotherapy induced pancytopenia, neutropenia resolved, Platelets are going down, not perfect timing for HIT , serotonin assay sent, platelets given, most lilely post chemotherapy affect (2) Adenocarcinoma of left lung, stage 3: Plan: - metastatic adenocarcinoma in left lung, no furthers sited, deemed not surgical candidate due to copd Started chemoradiation 3 weeks ago, has not received Neupogen/Neulasta (3) Elevated troponin: Plan: Troponin elevation No chest pain at any point, suspect demand ischemia -Echo shows chronic combined heart failure, EF 45% volume status stable at this time (4) ABHISHEK (acute kidney injury): Plan: ABHISHEK wit CKD 3 hyponatremia is stable but low replete low phosphorous also (5) Afib: Plan: On reassessment patient in [facility], no prior history of this. Rates better control with amiodarone Amiodarone, with good control will convert to po heparin held with low platelets Admission and Anticipated Discharge Date Admission Date: April 21, 2023 Subjective pt feels improved no bruising or bleeding with low platelet counts not feeling poorly despite prolonged pressor support Physical Exam Physical Exam: Awake alert appropriate Card exam is regular without murmurs Lungs have coarse breath sounds bibasilar Abdomen normal active bowel sounds soft and nontender Extremities are without Results & Data Results & Data Vital Signs (Past 12 Hours) Vital Signs Temp Pulse Pulse Resp BP Pulse Ox O2 Del Method 04/25/23 16:58 71 04/25/23 13:00 68 22 90 04/25/23 12:35 72 18 118/46 L 92 04/25/23 12:03 65 20 94 High Flow Nasal Cannula 04/25/23 11:50 68 18 119/52 L 95 04/25/23 11:20 61 19 110/46 L 92 04/25/23 11:05 61 19 118/56 L 94 04/25/23 10:44 98.1 F 82 18 132/58 L 93 04/25/23 10:28 98.1 F 63 18 120/52 L 96 04/25/23 10:00 77 22 96 04/25/23 09:00 59 L 18 93 04/25/23 08:03 54 L 20 94 High Flow Nasal Cannula 04/25/23 08:00 62 22 90 04/25/23 08:00 High Flow Nasal Cannula 04/25/23 07:00 51 L 18 91 04/25/23 06:00 98.1 F 54 L 19 121/52 L 93 High Flow Nasal Cannula O2 Flow Rate FiO2 04/25/23 16:58 04/25/23 13:00 04/25/23 12:35 20 04/25/23 12:03 25 50 04/25/23 11:50 04/25/23 11:20 04/25/23 11:05 25 04/25/23 10:44 04/25/23 10:28 25 04/25/23 10:00 04/25/23 09:00 04/25/23 08:03 30 50 04/25/23 08:00 04/25/23 08:00 25 50 04/25/23 07:00 04/25/23 06:00 30 Laboratory Results reviewed cbc reviewed prp consented pt for platelet transfusion PG Care Time/CCT Total # of Minutes Spent Total Time Spent with Patient: Total time spent is greater than 50% in coordination of care (as documented) at patient's floor/unit and/or counseling patient: Coding Level of Care Code 00585 SUB INP/OBS CARE 3/50MIN Diagnoses Sepsis A41.9 Adenocarcinoma of left lung, stage 3 C34.92 Elevated troponin R79.89 ABHISHEK (acute kidney injury) N17.9 Afib I48.91
[2023-04-26] MEDS: MAGNESIUM SULFATE / D5W 1 GM/100 ML BAG IV SCH (01:13)
[2023-04-26 05:02] LABS: Hematocrit (blood only) 27.6 % (42.0-52.0); Hemoglobin 9.9 g/dl (14.0-18.0); Mean Corpuscular Hemoglobin 31.5 pg (25.0-34.0); Mean Corpuscular Hgb Conc 35.9 g/dL (32.0-36.0); Mean Corpuscular Volume 87.9 fL (80.0-100.0); Mean Platelet Volume 12.2 fL (9.4-12.4); Platelet Count 17 K/uL (130-400); RDW Coefficient of Variation 14.2 % (11.5-14.5); RDW Standard Deviation 44.4 fL (36.4-46.3); Red Blood Count 3.14 M/uL (4.70-6.10); White Blood Count 2.62 K/ul (4.8-10.8)
[2023-04-26 05:06] LABS: BUN Creatinine Ratio 34.3 (10-20); Calcium 7.5 mg/dl (8.6-10.3); Creatinine Clr Calc Pharmacy 62.5 ml/min; Est GFR (African American) 82.4 ml/min; Est GFR (Non-African American) 71.1 ml/min; Magnesium 2.4 mg/dl (1.7-2.4); Phosphorus 2.7 mg/dl (2.5-4.9); Potassium 3.8 mmol/L (3.5-5.1)
[2023-04-26 05:17] LABS: Basophils # (auto) 0.01 K/uL (0.00-0.20); Basophils % (auto) 0.4 %; Dohle Bodies 1+; Echinocytes 2+; Eosinophils # (auto) 0.01 K/uL (0.00-0.50); Eosinophils % (auto) 0.4 %; Immature Granulocytes # (auto) 0.03 K/uL (0.01-0.20); Immature Granulocytes % (auto) 1.1 %; Lymphocytes # (auto) 0.11 K/uL (1.20-3.40); Lymphocytes % (auto) 4.2 %; Monocytes # (auto) 0.18 K/uL (0.11-0.59); Monocytes % (auto) 6.9 %; Neutrophils # (auto) 2.28 K/uL (1.40-6.50); Toxic Granulation 1+; Toxic Vacuolation 1+
--- NOTE | 2023-04-26 07:19 | Critical Care Progress Note ---
Date of Service April 26, 2023 Assessment & Plan (1) Afib: (2) Neutropenia: (3) Septic shock: (4) Adenocarcinoma of left lung, stage 3: (5) ABHISHEK (acute kidney injury): (6) Lactic acidosis: Plan Reason Critically Ill: 78-year-old male admitted to the hospital because of septic shock for multilobar pneumonia Past medical history of stage III adenocarcinoma of the lung currently going chemo and radiation Neuro - [facility] ICU: Negative No acute needs Cardiac - -- S/p septic shock Likely from multilobar pneumonia Continue with vasopressor support to keep MAP greater than 65 Random cortisol 36 Patient was getting dexamethasone as an outpatient, continue with hydrocortisone based on the latest studies in patients presenting with severe pneumonia -- A-fib with RVR Likely from underlying sepsis Continue heparin and amiodarone Follow-up cardiology Respiratory - -- Acute hypoxic respiratory failure Secondary to multilobar pneumonia Encourage deep breathing, IS/Flutter SpO2 goal > 88 CT PE negative for PE, confirmed multifocal pneumonia --Poorly differentiated adenocarcinoma of the lung Robotic navigational bronchoscopy 01/27/2023 revealed poorly differentiated adenocarcinoma in 2 different lung nodules. ET scan 01/15/2023 revealed PET avid nodules in the lingula and also in the left lower lobe. Pathological stage of T4/N0/M0. Clinical stage IIIa disease. Patient likely a poor candidate for surgery given poor PFTs. FEV1 03/22/2021 was 1.30 L, 44%. DLCO 63%. Outpatient PFT GI - Bowel regimen: Hold given diarrhea on presentation RENAL/LYTES - -- ABHISHEK Likely from septic shock Monitor BUN/creatinine Avoid nephrotoxic medications Strict ins and outs - Continue with Crooks catheter ENDO - Stress-dosed steroids as ordered ICU hyperglycemia protocol -- s/p Hypocalcemia Got multiple rounds of potassium chloride and calcium HEME - -- New onset thrombocytopenia 4T score 3, probability of HIT is less than 5% Likely from underlying sepsis Continue to monitor Doppler bilateral lower extremity negative on 04/24/2023 S/p 1 SDP 04/25/2023, will get another 1 today Fibrinogen within normal limit -- S/p Neutropenia with ANC less than 500 Continue with antibiotics and neutropenic precautions Patient has been getting filgrastim ID - -- Gram-negative bacteremia likely Pseudomonas Follow-up sensitivities Continue with antibiotics Vancomycin discontinued 04/22/2023, ciprofloxacin discontinued 04/23/2023 Repeat blood culture 04/24/2023 negative to date Nasal MRSA negative SARS-CoV-2, influenza A/B, RSV all negative --Prophylaxis VTE: Heparin drip on hold GI: Pantoprazole Lines: Right IJ, right radial, positive Crooks Diet: Heart healthy Plan: In/out: +985 normal, urine output 1776, +5.6 L since coming to the hospital Patient's volume loss from diarrhea is not accounted for on the in/out. Thrombocytopenia is most likely from underlying sepsis. He is on heparin drip the drop of platelets is greater than 50%. 4T score is 3 which gives low probability of HIT. Hold heparin drip, will order Doppler bilateral lower extremity to make sure he is not having any blood clots. DC A-line, will give 20 mg of Lasix given the chest x-ray showing worsening of the opacity. Getting another 1 unit of SDP today given the platelets are 17. Continue with hydrocortisone 50 mg every 6hrs for a total of 4 days since initiation and then go down to 50 mg every 12 for 3 days and then 50 mg on a daily basis for 2 days Remove TLC before sending the patient out of the ICU Patient hemodynamically stable to be downgraded to medical floor. Case was discussed with primary team Please note the above document was generated using voice recognition software. It may contain grammatical, syntax or spelling errors.Any formal questions or concerns about the content, text or information contained within the body of this dictation should be directly addressed to the provider for clarification. Admission and Anticipated Discharge Date Admission Date: April 21, 2023 Subjective Patient seen and examined at bedside. No acute distress, no adverse events overnight. Patient MAP was in the 80s, he has been off of vasopressors for more than 12 hours. He was on nasal cannula. Saturating 91-92% Denies any nausea vomiting Was able to tolerate breakfast without any issues. Review of Systems 2 Review of Systems: All systems reviewed & are unremarkable except as noted in Subjective Physical Exam 2 Physical Exam: Constitutional: No acute distress HEENT: EOMI, PERRLA Respiratory system: Decreased air entry bilaterally, no wheeze, Positive crackles bilateral lower lobes, more on the right side CVS: S1-S2 positive, no murmurs or gallops Abdomen: Soft, nontender, nondistended, positive bowel sounds x4 Extremities: +2 pulses bilaterally radialis/ dorsalis pedis, no cyanosis, +1 edema bilateral lower extremity Neuro: Awake alert oriented x3 Psych: Normal mood and affect G/U: Positive Crooks Skin: no rashes, warm and dry Lymphatic: no cervical or axillary lymphadenopathy Results & Data Results & Data Vital Signs (Past 12 Hours) Vital Signs Temp Pulse Pulse Resp BP BP Pulse Ox 04/26/23 07:06 36.7 C 64 20 142/61 H 91 04/26/23 06:30 61 17 95 04/26/23 06:00 65 18 93 04/26/23 05:30 65 17 93 04/26/23 05:00 67 18 91 04/26/23 04:30 70 20 91 04/26/23 04:00 99 H 18 93 04/26/23 04:00 36.6 C 67 14 135/61 93 04/26/23 04:00 67 138/60 04/26/23 03:30 99 H 19 92 04/26/23 03:00 94 H 17 93 04/26/23 02:30 111 H 22 93 04/26/23 02:00 97 H 25 H 91 04/26/23 01:30 96 H 22 91 04/26/23 01:00 88 22 93 04/26/23 00:30 95 H 22 92 04/26/23 00:00 85 22 94 04/26/23 00:00 89 110/50 L 04/25/23 23:30 96 H 21 94 04/25/23 23:00 97 H 22 92 04/25/23 22:30 72 19 92 04/25/23 22:15 73 04/25/23 22:00 75 18 92 04/25/23 21:30 74 20 92 04/25/23 21:00 73 16 93 04/25/23 20:30 68 16 95 04/25/23 20:00 66 21 91 04/25/23 20:00 76 128/55 L 04/25/23 19:30 70 18 92 04/25/23 19:30 04/25/23 19:20 65 O2 Del Method O2 Flow Rate 04/26/23 07:06 7 04/26/23 06:30 Nasal Cannula 7 04/26/23 06:00 Nasal Cannula 7 04/26/23 05:30 04/26/23 05:00 Nasal Cannula 7 04/26/23 04:30 Nasal Cannula 7 04/26/23 04:00 04/26/23 04:00 Nasal Cannula 7 04/26/23 04:00 04/26/23 03:30 Nasal Cannula 7 04/26/23 03:00 04/26/23 02:30 Nasal Cannula 7 04/26/23 02:00 Nasal Cannula 7 04/26/23 01:30 Nasal Cannula 7 04/26/23 01:00 Nasal Cannula 7 04/26/23 00:30 Nasal Cannula 7 04/26/23 00:00 04/26/23 00:00 04/25/23 23:30 Nasal Cannula 7 04/25/23 23:00 04/25/23 22:30 04/25/23 22:15 04/25/23 22:00 Nasal Cannula 7 04/25/23 21:30 Nasal Cannula 7 04/25/23 21:00 04/25/23 20:30 Nasal Cannula 7 04/25/23 20:00 04/25/23 20:00 04/25/23 19:30 Nasal Cannula 7 04/25/23 19:30 Room Air 04/25/23 19:20 Laboratory Results 04/26/23 04:35 04/26/23 04:35 Coding Level of Care Code 11993 SUB INP/OBS CARE 3/50MIN Diagnoses Afib I48.91 Neutropenia D70.9 Septic shock A41.9; R65.21 Adenocarcinoma of left lung, stage 3 C34.92 ABHISHEK (acute kidney injury) N17.9 Lactic acidosis E87.20
--- NOTE | 2023-04-26 08:20 | XRay Report ---
XR chest 1V portable HISTORY: Shortness of breath. COMPARISON: Chest 04/24/2023. FINDINGS: Right jugular central venous catheter terminates in the SVC.. No pneumothorax. Bibasilar ai rspace opacities have slightly progressed. No evidence for pulmonary edema. No pleural effusions. The re are low lung volumes. The heart remains stable in size. No evidence for pulmonary edema. IMPRESSION: Slight progression of the patchy bibasilar airspace opacities consistent with a pneumonia. ACT 112: Negative or not required by law. Electronically signed by: Neil Zeng M.D. 04/26/2023 8:19 AM
[2023-04-26] MEDS: FUROSEMIDE INJ 20 MG/2 ML VIAL IV ONE (08:25)
[2023-04-26] MEDS: POTASSIUM CHLORIDE / WTR 20 MEQ/100 ML PLCT IV ONE (08:47)
[2023-04-26] MEDS: CEFEPIME 2,000 MG in SYRINGE 0 ML IV SCH (09:51)
--- NOTE | 2023-04-26 15:35 | Hospitalist Progress Note ---
Date of Service April 26, 2023 Assessment & Plan (1) Sepsis: Plan: Acute on chronic hypoxic respiratory failure Multifactorial with history of COPD, lung cancer, and sepsis Sepsis required pressors no tapered off one dose lasic 04/25 for volume overload from volume resusitation Suspect pulmonary source gram negative pneumonia Blood cultures resulted / with Gram negative bacteremia Sputum culture ordered, blood cultures concern for pseudomonas -Cefepime continues continue 7 days Random cortisol normal . Patient has been on dexamethasone on Thursday/Mondays, is at risk for secondary AI. Pt remains on hydrocortisone 50mg q 12 h Antineoplastic chemotherapy induced pancytopenia, neutropenia resolved, Platelets are going down, not perfect timing for HIT , serotonin assay sent, platelets given again on 04/25 most likely post chemotherapy affect (2) Adenocarcinoma of left lung, stage 3: Plan: - metastatic adenocarcinoma in left lung, no furthers sited, deemed not surgical candidate due to copd Started chemoradiation 3 weeks ago, has not received Neupogen/Neulasta (3) Elevated troponin: Plan: Troponin elevation demand ischemia with sepsis and afib No chest pain at any point, -Echo shows chronic combined heart failure, EF 45% (4) ABHISHEK (acute kidney injury): Plan: ABHISHEK resolved, CKD 3, hyponatremia is stable but low (5) Afib: Plan: O new A-fib, no prior history of this. Rates better control with amiodarone convert to po heparin held with low platelets , may eventually need moth exterminator AC Admission and Anticipated Discharge Date Admission Date: April 21, 2023 Subjective Pt is now off pressors has lingering thrombocytopenia with additional transfusions 04/26/23 pt has no focal complaints, bruising and or bleeding Physical Exam Physical Exam: Awake alert appropriate Card exam is regular without murmurs Lungs have coarse breath sounds bibasilar Abdomen normal active bowel sounds soft and nontender Extremities are without Results & Data Results & Data Vital Signs (Past 12 Hours) Vital Signs Temp Pulse Pulse Resp BP BP Pulse Ox 04/26/23 14:30 72 21 04/26/23 14:00 117/72 94 04/26/23 14:00 73 24 93 04/26/23 13:00 72 19 95 04/26/23 13:00 104/56 L 04/26/23 12:00 127/71 04/26/23 12:00 71 19 92 04/26/23 11:30 81 20 04/26/23 11:00 126/69 04/26/23 11:00 75 15 92 04/26/23 10:30 72 18 93 04/26/23 10:21 116/63 04/26/23 10:21 74 24 93 04/26/23 10:00 73 20 93 04/26/23 09:00 67 16 90 04/26/23 08:45 98.2 F 69 153/62 H 91 04/26/23 08:13 97.9 F 79 156/63 H 91 04/26/23 08:12 04/26/23 08:00 69 23 04/26/23 07:55 69 04/26/23 07:43 98.2 F 66 22 143/58 H 91 04/26/23 07:28 98.2 F 67 22 145/57 H 90 04/26/23 07:13 133/72 04/26/23 07:13 67 90 04/26/23 07:06 98.1 F 64 20 142/61 H 91 04/26/23 07:00 64 23 90 04/26/23 06:30 61 17 95 04/26/23 06:00 65 18 93 04/26/23 05:30 65 17 93 04/26/23 05:00 67 18 91 04/26/23 04:30 70 20 91 04/26/23 04:00 99 H 18 93 04/26/23 04:00 97.9 F 67 14 135/61 93 04/26/23 04:00 67 138/60 O2 Del Method O2 Flow Rate 04/26/23 14:30 04/26/23 14:00 High Flow Nasal Cannula 10 04/26/23 14:00 04/26/23 13:00 High Flow Nasal Cannula 10 04/26/23 13:00 04/26/23 12:00 04/26/23 12:00 High Flow Nasal Cannula 10 04/26/23 11:30 04/26/23 11:00 04/26/23 11:00 04/26/23 10:30 04/26/23 10:21 04/26/23 10:21 04/26/23 10:00 04/26/23 09:00 04/26/23 08:45 04/26/23 08:13 7 04/26/23 08:12 High Flow Nasal Cannula 7 04/26/23 08:00 04/26/23 07:55 04/26/23 07:43 7 04/26/23 07:28 7 04/26/23 07:13 04/26/23 07:13 High Flow Nasal Cannula 7 04/26/23 07:06 7 04/26/23 07:00 04/26/23 06:30 Nasal Cannula 7 04/26/23 06:00 Nasal Cannula 7 04/26/23 05:30 04/26/23 05:00 Nasal Cannula 7 04/26/23 04:30 Nasal Cannula 7 04/26/23 04:00 04/26/23 04:00 Nasal Cannula 7 04/26/23 04:00 Laboratory Results reviewed cbc reviewed chemistry PG Care Time/CCT Total # of Minutes Spent Total Time Spent with Patient: Total time spent is greater than 50% in coordination of care (as documented) at patient's floor/unit and/or counseling patient: Coding Level of Care Code 91586 SUB INP/OBS CARE 3/50MIN Diagnoses Sepsis A41.9 Adenocarcinoma of left lung, stage 3 C34.92 Elevated troponin R79.89 ABHISHEK (acute kidney injury) N17.9 Afib I48.91
[2023-04-27 07:12] LABS: Hematocrit (blood only) 28.7 % (42.0-52.0); Mean Corpuscular Hgb Conc 34.8 g/dL (32.0-36.0); Mean Corpuscular Volume 88.9 fL (80.0-100.0); Nucleated RBC # (auto) 0.02 K/uL (0.00-0.12); Nucleated RBC % (auto) 0.2 %; Platelet Count 30 K/uL (130-400); RDW Coefficient of Variation 14.5 % (11.5-14.5); RDW Standard Deviation 46.2 fL (36.4-46.3); Red Blood Count 3.23 M/uL (4.70-6.10); White Blood Count 9.13 K/ul (4.8-10.8)
[2023-04-27 07:13] LABS: Acanthocytes 2+; Basophils # (auto) 0.01 K/uL (0.00-0.20); Basophils % (auto) 0.1 %; Dohle Bodies 1+; Immature Granulocytes # (auto) 0.24 K/uL (0.01-0.20); Immature Granulocytes % (auto) 2.6 %; Lymphocytes # (auto) 0.23 K/uL (1.20-3.40); Lymphocytes % (auto) 2.5 %; Monocytes # (auto) 0.19 K/uL (0.11-0.59); Monocytes % (auto) 2.1 %; Neutrophils # (auto) 8.46 K/uL (1.40-6.50); Neutrophils % (auto) 92.7 %; Toxic Granulation 2+; Toxic Vacuolation 1+
--- NOTE | 2023-04-27 19:21 | Hospitalist Progress Note ---
Date of Service April 27, 2023 Assessment & Plan (1) Sepsis: Plan: Acute on chronic hypoxic respiratory failure Multifactorial with history of COPD, lung cancer, and sepsis Sepsis required pressors no tapered off one dose lasic 04/25 for volume overload from volume resusitation Suspect pulmonary source gram negative pneumonia Blood cultures resulted / with Gram negative bacteremia blood cultures concern for pseudomonas -Cefepime continues continue 7 days Random cortisol normal . Patient has been on dexamethasone on Thursday/Mondays, is at risk for secondary AI. Pt remains on hydrocortisone tapering Antineoplastic chemotherapy induced pancytopenia, neutropenia resolved, Platelets are going down, not perfect timing for HIT , serotonin assay sent, platelets given again on 04/25 most likely post chemotherapy affect (2) Adenocarcinoma of left lung, stage 3: Plan: - metastatic adenocarcinoma in left lung, no furthers sited, deemed not surgical candidate due to copd Started chemoradiation 3 weeks prior to admission , (3) Elevated troponin: Plan: Troponin elevation demand ischemia with sepsis and afib No chest pain at any point, -Echo shows chronic combined heart failure, EF 45% (4) ABHISHEK (acute kidney injury): Plan: ABHISHEK resolved, CKD 3, hyponatremia is stable but low (5) Afib: Plan: new A-fib, no prior history of this. Rates better control with amiodarone convert to po heparin held with low platelets , may eventually need intermediate manager AC Plan PT/OT will need to eval oxygen also does have home oxygen Admission and Anticipated Discharge Date Admission Date: April 21, 2023 Subjective pt feels improved, platelet have come up functional status to be evaluated by PT/OT oxygen still higher than home levels Physical Exam Physical Exam: Awake alert appropriate Card exam is regular without murmurs Lungs remains with coarse breath sounds bibasilar Abdomen normal active bowel sounds soft and nontender Extremities are without Results & Data Results & Data Vital Signs (Past 12 Hours) Vital Signs Temp Pulse Pulse Resp BP Pulse Ox O2 Del Method 04/27/23 16:00 71 04/27/23 15:43 98.2 F 72 28 H 118/64 95 High Flow Nasal Cannula 04/27/23 11:45 98.2 F 89 22 120/63 90 High Flow Nasal Cannula 04/27/23 08:00 Room Air 04/27/23 08:00 Room Air 04/27/23 08:00 67 04/27/23 08:00 98.1 F 68 16 111/66 91 High Flow Nasal Cannula O2 Flow Rate 04/27/23 16:00 04/27/23 15:43 7 04/27/23 11:45 7 04/27/23 08:00 04/27/23 08:00 04/27/23 08:00 04/27/23 08:00 7 Laboratory Results reviewed cbc reviewed poc glucose PG Care Time/CCT Total # of Minutes Spent Total Time Spent with Patient: Total time spent is greater than 50% in coordination of care (as documented) at patient's floor/unit and/or counseling patient: Coding Level of Care Code 70920 SUB INP/OBS CARE 3/50MIN Diagnoses Sepsis A41.9 Adenocarcinoma of left lung, stage 3 C34.92 Elevated troponin R79.89 ABHISHEK (acute kidney injury) N17.9 Afib I48.91
[2023-04-28] MEDS: HYDROCORTISONE SOD 50 MG in SYRINGE 0 ML IV SCH (06:30)
[2023-04-28 06:45] LABS: BUN Creatinine Ratio 40.2 (10-20); Calcium 7.7 mg/dl (8.6-10.3); Est GFR (African American) 93.3 ml/min; Est GFR (Non-African American) 80.5 ml/min; Potassium 3.8 mmol/L (3.5-5.1)
[2023-04-28 06:55] LABS: Hematocrit (blood only) 25.9 % (42.0-52.0); Hemoglobin 9.5 g/dl (14.0-18.0); Mean Corpuscular Hemoglobin 31.4 pg (25.0-34.0); Mean Corpuscular Hgb Conc 36.7 g/dL (32.0-36.0); Mean Corpuscular Volume 85.5 fL (80.0-100.0); Nucleated RBC # (auto) 0.06 K/uL (0.00-0.12); Nucleated RBC % (auto) 0.5 %; Platelet Count 38 K/uL (130-400); RDW Coefficient of Variation 14.6 % (11.5-14.5); RDW Standard Deviation 45.2 fL (36.4-46.3); Red Blood Count 3.03 M/uL (4.70-6.10); White Blood Count 12.29 K/ul (4.8-10.8)
[2023-04-28 07:04] LABS: Acanthocytes 2+; Basophils # (auto) 0.03 K/uL (0.00-0.20); Basophils % (auto) 0.2 %; Immature Granulocytes # (auto) 0.32 K/uL (0.01-0.20); Immature Granulocytes % (auto) 2.6 %; Lymphocytes # (auto) 0.37 K/uL (1.20-3.40); Monocytes # (auto) 0.36 K/uL (0.11-0.59); Monocytes % (auto) 2.9 %; Neutrophils # (auto) 11.21 K/uL (1.40-6.50); Neutrophils % (auto) 91.3 %; Platelet Estimate Decreased (Normal); Polychromasia 1+; Toxic Granulation 1+
--- NOTE | 2023-04-28 07:28 | Hospitalist Progress Note ---
Date of Service April 28, 2023 Assessment & Plan (1) Sepsis: Plan: Acute on chronic hypoxic respiratory failure Multifactorial with history of COPD, lung cancer, and sepsis Sepsis required pressors no tapered off one dose lasic 04/25 for volume overload from volume resusitation Suspect pulmonary source gram negative pneumonia Blood cultures resulted 04/12 with Gram negative bacteremia blood cultures concern for pseudomonas -Cefepime continues continue 7 days Random cortisol normal . Patient has been on dexamethasone on Thursday/Mondays, is at risk for secondary AI. Pt remains on hydrocortisone tapering Antineoplastic chemotherapy induced pancytopenia, neutropenia resolved, Platelets are going down, not perfect timing for HIT , serotonin assay sent, platelets given again on 04/25 most likely post chemotherapy affect (2) Hypoxia: Plan: Pt with increased oxygen requirement from home use multifactorial, has copd, lung cancer,m pneumonia and h/o chronic systolic heart failure will give one dose lasix 04/28/23, continue to treat pneumonia and COPD (3) Adenocarcinoma of left lung, stage 3: Plan: - metastatic adenocarcinoma in left lung, no furthers sited, deemed not surgical candidate due to copd Started chemoradiation 3 weeks prior to admission , (4) Elevated troponin: Plan: Troponin elevation demand ischemia with sepsis and afib No chest pain at any point, -Echo shows chronic combined heart failure, EF 45% (5) ABHISHEK (acute kidney injury): Plan: ABHISHEK resolved, CKD 3, hyponatremia is stable but low (6) Afib: Plan: new A-fib, no prior history of this. Rates better control with amiodarone convert to po heparin held with low platelets , may eventually need seismology teacher AC Plan PT/OT will need to eval oxygen also does have home oxygen Admission and Anticipated Discharge Date Admission Date: April 21, 2023 Subjective pt feels improved, platelets are coming up pt will continue to get stronger and will likely be able to go home Physical Exam Physical Exam: Awake alert appropriate Card exam is regular without murmurs Lungs remains with coarse breath sounds bibasilar Abdomen normal active bowel sounds soft and nontender Extremities are without Results & Data Results & Data Vital Signs (Past 12 Hours) Vital Signs Temp Pulse Pulse Resp BP BP Pulse Ox 04/28/23 07:16 98.1 F 59 L 18 120/62 90 04/28/23 03:56 97.9 F 58 L 18 124/67 90 04/28/23 01:00 70 25 H 92 04/28/23 00:30 67 15 94 04/28/23 00:00 67 21 90 04/28/23 00:00 72 04/27/23 23:30 67 17 88 L 04/27/23 23:19 97.9 F 63 19 129/61 90 04/27/23 23:18 69 19 89 L 04/27/23 23:18 129/61 04/27/23 23:00 68 20 92 04/27/23 22:30 73 20 91 04/27/23 22:00 72 20 91 04/27/23 21:30 71 16 90 04/27/23 21:00 72 17 90 04/27/23 20:30 76 21 04/27/23 20:28 98.2 F 73 18 125/70 90 04/27/23 20:27 74 20 87 L 04/27/23 20:27 125/70 04/27/23 20:00 77 20 89 L 04/27/23 20:00 04/27/23 19:30 71 24 90 O2 Del Method O2 Flow Rate 04/28/23 07:16 Nasal Cannula 6 04/28/23 03:56 High Flow Nasal Cannula 7 04/28/23 01:00 04/28/23 00:30 04/28/23 00:00 04/28/23 00:00 04/27/23 23:30 04/27/23 23:19 High Flow Nasal Cannula 7 04/27/23 23:18 04/27/23 23:18 04/27/23 23:00 04/27/23 22:30 04/27/23 22:00 04/27/23 21:30 04/27/23 21:00 04/27/23 20:30 04/27/23 20:28 High Flow Nasal Cannula 7 04/27/23 20:27 04/27/23 20:27 04/27/23 20:00 04/27/23 20:00 High Flow Nasal Cannula 6 04/27/23 19:30 PG Care Time/CCT Total # of Minutes Spent Total Time Spent with Patient: Total time spent is greater than 50% in coordination of care (as documented) at patient's floor/unit and/or counseling patient: Coding Level of Care Code 67536 SUB INP/OBS CARE 3/50MIN Diagnoses Sepsis A41.9 Hypoxia R09.02 Adenocarcinoma of left lung, stage 3 C34.92 Elevated troponin R79.89 ABHISHEK (acute kidney injury) N17.9 Afib I48.91
[2023-04-28] MEDS: AMIODARONE 200 MG TAB PO SCH (08:24)
[2023-04-28] MEDS: PANTOprazole 40 MG TAB PO SCH (08:24)
[2023-04-28] MEDS: FUROSEMIDE INJ 20 MG/2 ML VIAL IV ONE (08:31)
[2023-04-28] MEDS: ONDANSETRON INJ 2 MG/ML 2 ML VIAL IV PRN (16:03)
[2023-04-28] MEDS: FAMOTIDINE 20MG IV PUSH 20 MG/5 ML SYR IV STA (16:22)
[2023-04-28] MEDS: FAMOTIDINE 20 MG TAB PO SCH (20:52)
[2023-04-29 09:08] LABS: Albumin Level 2.5 gm/dl (3.4-5.0); BUN Creatinine Ratio 42.2 (10-20); Bilirubin,Total 2.9 mg/dl (0.2-1.0); Calcium 7.9 mg/dl (8.6-10.3); Creatinine Clr Calc Pharmacy 77.2 ml/min; Est GFR (African American) 99.1 ml/min; Est GFR (Non-African American) 85.5 ml/min; Globulin 2.5 gm/dl (2.5-4.0); Potassium 3.5 mmol/L (3.5-5.1)
[2023-04-29 09:13] LABS: Hematocrit (blood only) 28.6 % (42.0-52.0); Hemoglobin 9.8 g/dl (14.0-18.0); Mean Corpuscular Hemoglobin 30.4 pg (25.0-34.0); Mean Corpuscular Hgb Conc 34.3 g/dL (32.0-36.0); Mean Corpuscular Volume 88.8 fL (80.0-100.0); Mean Platelet Volume 13.4 fL (9.4-12.4); Nucleated RBC # (auto) 0.06 K/uL (0.00-0.12); Nucleated RBC % (auto) 0.6 %; Platelet Count 45 K/uL (130-400); RDW Coefficient of Variation 15.2 % (11.5-14.5); RDW Standard Deviation 47.5 fL (36.4-46.3); Red Blood Count 3.22 M/uL (4.70-6.10); White Blood Count 10.64 K/ul (4.8-10.8)
[2023-04-29 09:17] LABS: Basophils # (auto) 0.04 K/uL (0.00-0.20); Basophils % (auto) 0.4 %; Dohle Bodies 1+; Immature Granulocytes # (auto) 0.22 K/uL (0.01-0.20); Immature Granulocytes % (auto) 2.1 %; Lymphocytes # (auto) 0.24 K/uL (1.20-3.40); Lymphocytes % (auto) 2.3 %; Monocytes # (auto) 0.21 K/uL (0.11-0.59); Neutrophils # (auto) 9.93 K/uL (1.40-6.50); Neutrophils % (auto) 93.2 %; Platelet Estimate Decreased (Normal); Polychromasia 1+; Toxic Granulation 1+; Toxic Vacuolation 1+
--- NOTE | 2023-04-29 09:49 | Hospitalist Progress Note ---
Date of Service April 29, 2023 Assessment & Plan (1) Sepsis: Plan: Secondary to pseudomonas aeruginosa bacteremia from presumed pulmonary source Treated with vancomycin x1 dose, Levaquin x1 dose, ciprofloxacin x1 dose and cefepime (start date 04/20) Cefepime - initial plan was to discontinue yesterday however in setting of continued hypoxia, severity of illness, and immunosuppressed state will consult ID to determine duration Pt remains on hydrocortisone tapering per critical care recommendations, 50mg BID until 04/30 then switch to 50mg daily for 3 days then stop Remove hair catheter (2) Acute and chronic respiratory failure with hypoxia: Plan: Baseline PRN oxygen only Pt with increased oxygen requirement from home use multifactorial, has copd, lung cancer,m pneumonia and h/o chronic systolic heart failure will give one dose lasix 04/28/23, continue to treat pneumonia and COPD (3) Acute HFrEF (heart failure with reduced ejection fraction): Plan: Lasix 20mg IV given yesterday to good effect and improvement in swelling and sodium Will continue 20mg IV daily - likely to need for 3-4 days. Notably outpatient lasix only recently started by pulmonology per patient. [03/31] (4) Transaminitis: Plan: Suspect either residual from shock vs amiodarone vs. hypervolemic state Unclear trend but new from 1 week ago when he was admitted Diurese Hold amiodarone US liver Repeat with AM labs (5) Adenocarcinoma of left lung, stage 3: Plan: Metastatic adenocarcinoma in left lung, deemed not surgical candidate due to copd Started chemoradiation 3 weeks prior to admission (6) Elevated troponin: Plan: Secondary to demand-ischemia in setting of sepsis and a. fib RVR No chest pain at any point TTE LVEF 45%, grade II diastolic dysfunction (7) ABHISHEK (acute kidney injury): Plan: ABHISHEK resolved, CKD 3 (8) Afib: Plan: New onset atrial fibrillation in setting of sepsis Now in NSR Anticoagulation held due to thrombocytopenia Amiodarone on hold due to elevated LFTs (9) Pancytopenia due to antineoplastic chemotherapy: Plan: Neutropenia resolved, Platelets now improving (required platelet transfusions x2 earlier in admission), serotonin assay negative Filgrastim 480 mcg x3 daily given on admission Present on Admission?: Yes (10) Bacterial pneumonia: (11) Bacteremia due to Pseudomonas: Plan VTE prophylaxis - deferred pending improvement in platelets > 50 Diet - heart healthy, T2DM (will get HbA1C to determine if this needs to be ongoing tomorrow) Disposition - continued care on PCU Admission and Anticipated Discharge Date Admission Date: April 21, 2023 Subjective Feeling improved. Ongoing shortness of breath. Hair catheter still in place - he no longer feels he needs this Antibiotics discontinued yesterday No abdominal pain. BM yesterday was normal, diarrhea earlier in stay. No nausea or vomiting. Eating well. Review of Systems Review of Systems: All systems reviewed & are unremarkable except as noted in HPI & below Physical Exam Constitutional: WD/WN, vitals as above ENMT: external ear and nose normal, oropharynx normal Respiratory: normal respiratory effort; no respiratory distress Auscultation: + crackles (bibasal); no diminished lung sounds and no wheezes Cardiovascular: Rate/Rhythm: regular rate and regular rhythm Heart Sounds: no murmur Vessels: + JVD Extremities: + pedal edema Gastrointestinal (Abdomen): normal bowel sounds, soft, nontender, no hepatosplenomegaly Skin: no rashes, warm and dry Neurologic: moves all extremities and awake; not confused Psychiatric: A+Ox3, euthymic affect Genitourinary: no CVA tenderness Results & Data Results & Data Vital Signs (Past 12 Hours) Vital Signs Temp Pulse Pulse Resp BP BP Pulse Ox 04/29/23 08:30 75 132/67 04/29/23 07:24 65 04/29/23 07:23 36.9 C 64 20 121/65 90 04/29/23 03:24 36.6 C 62 16 137/63 91 04/29/23 01:00 62 20 91 04/29/23 00:30 60 19 92 04/29/23 00:00 58 L 14 93 04/29/23 00:00 73 04/28/23 23:30 60 19 93 04/28/23 23:25 36.6 C 63 19 124/64 93 04/28/23 23:24 59 L 16 93 04/28/23 23:24 124/64 04/28/23 23:00 58 L 15 92 04/28/23 22:30 63 20 92 04/28/23 22:00 62 17 93 O2 Del Method O2 Flow Rate 04/29/23 08:30 04/29/23 07:24 04/29/23 07:23 High Flow Nasal Cannula 6 04/29/23 03:24 High Flow Nasal Cannula 6 04/29/23 01:00 04/29/23 00:30 04/29/23 00:00 04/29/23 00:00 04/28/23 23:30 04/28/23 23:25 High Flow Nasal Cannula 6 04/28/23 23:24 04/28/23 23:24 04/28/23 23:00 04/28/23 22:30 04/28/23 22:00 PG Care Time/CCT Total # of Minutes Spent Total Time Spent with Patient: Total time spent is greater than 50% in coordination of care (as documented) at patient's floor/unit and/or counseling patient: Coding Level of Care Code 20137 SUB INP/OBS CARE 3/50MIN Diagnoses Sepsis A41.9 Acute and chronic respiratory failure with hypoxia J96.21 Acute HFrEF (heart failure with reduced ejection fraction) I50.21 Transaminitis R74.01 Adenocarcinoma of left lung, stage 3 C34.92 Elevated troponin R79.89 ABHISHEK (acute kidney injury) N17.9 Afib I48.91 Pancytopenia due to antineoplastic chemotherapy D61.810; T45.1X5A Bacterial pneumonia J15.9 Bacteremia due to Pseudomonas R78.81; B96.5
[2023-04-29] MEDS: CEFEPIME 2,000 MG in SYRINGE 0 ML IV SCH (09:50)
--- NOTE | 2023-04-29 11:20 | Infectious Disease Consult ---
Date of Consultation April 29, 2023 Assessment & Plan (1) Bacterial pneumonia: (2) Bacteremia due to Pseudomonas: (3) Septic shock: (4) Afib: (5) ABHISHEK (acute kidney injury): (6) Neutropenia: Plan 78yo M with h/o metastatic lung cancer on chemo/XRT (gets chemo on Mondays, no port, on carboplatin/paclitaxel since 04/20/23), PTX after biopsy, COPD, chronic hypoxia on 1L NC who presented on 04/20 with fever, SOB, hypoxia and tachycardia along with productive cough. On admission, he was febrile to 38.3, now afebrile. BP in the 70s. Hypoxic requiring HFNC, currently 6L. WBC 0.62 (ANC 540)>>10.64. Cr 1.90>>0.83, LFT wnl (now elevated to 164 and 490). Troponin elevated. PCT 24.90. UA negative. GIPP negative. RPP negative. BCX with PsA. CXR with development of patchy bilateral mid to lower lung zone airspace opacity suggestive of a pneumonia. CTA chest neg for PE, noted patchy bl airspace consolidations at the lung bases, RML, and lingual c/w multilobar pneumonia. CTAP with IV showed diverticulosis, bl nonobstructing renal calculi, hepatic steatosis. He was started on pressors and admitted to the ICU. Also started on management for new onset Afib and is currently on amiodarone. TTE with trace MR. He had been getting abx as below for a multilobar PNA. Pressors now off. ID consulted 04/28 for Pseudomonal bacteremia. Pseudomonas bacteremia likely in setting of his pneumonia, which is improving. Would treat for a duration of 14 days for the bacteremia, especially in an im munocompromised individual. This could be done with levofloxacin, however there is an interaction with amiodarone. His QTc is 418 on last EKG. Will therefore complete therapy with cefepime with eot on 05/06. 04/20 BCX: P aeruginosa in multiple sets (castellon-S) 04/23 BCX: ngtd # Pseudomonas bacteremia # Respiratory failure 2/2 multliobar PNA improving hypoxia # Septic shock off pressors # Neutropenia - improved # ABHISHEK - improved # New onset aFib # Transaminitis # h/o lung cancer on chemo - Neida resumed cefepime 2g IV q8h - he will need 14 days of abx (starting 04/23, eot 05/06) - due to interaction with amiodarone and fluoroquinolone, we can complete therapy with cefepime (can use either 2g IV q8h or 6g IV continuous infusion q24h for ease of administration) - monitor weekly CBC w diff and CMP while on IV abx (at least twice weekly while inpatient) Chanelle Neal MD [facility], Division of Infectious Diseases IDConnect: [phone] Consultation Information Consultation was provided via telemedicine using two-way real-time interactive telecommunication between the patient and the telemedicine provider. For the duration of the visit, the provider was performing the assessment from a different facility than the patient. This includesuse of bluetooth stethoscope forauscultationperformed by the telepresenter that the telemedicine provider can hear if described in the physical exam. Cryogenic Transport Driver contact information: Please call ID Connect Call Center . (Phone Number For Physician Use Only) After establishing a telemedicine visit, patient was: Patient was verified with two unique identifiers, Patient/authorized rep acknowledged consent and understanding and Gave permission to continue telehealth session Time Spent with Patient: Initial => 75 min History of Present Illness Reason for Consultation: Pseudomonal bacteremia, immunocompromised Attending Physician: Jarod Montes MD History of Present Illness 78yo M with h/o metastatic lung cancer on chemo/XRT (gets chemo on Mondays, no port, on carboplatin/paclitaxel since 04/20/23), PTX after biopsy, COPD, chronic hypoxia on 1L NC who presented on 04/20 with fever, SOB, hypoxia and tachycardia. He was at his oncology appointment and had been feeling SOB, unwell with temp to 103, and noted to be tachycardic to 140 so had been sent to the ED. He did not have any chest pain, but did have a productive cough. On admission, he was febrile to 38.3, now afebrile. BP in the 70s. Hypoxic requiring HFNC, currently 6L. WBC 0.62 (ANC 540)>>10.64. Cr 1.90>>0.83, LFT wnl (now elevated to 164 and 490). Troponin elevated. PCT 24.90. UA negative. GIPP negative. RPP negative. BCX with PsA. CXR with development of patchy bilateral mid to lower lung zone airspace opacity suggestive of a pneumonia. CTA chest neg for PE, noted patchy bl airspace consolidations at the lung bases, RML, and lingual c/w multilobar pneumonia. CTAP with IV showed diverticulosis, bl nonobstructing renal calculi, hepatic steatosis. He was started on pressors and admitted to the ICU. Also started on management for new onset Afib and is currently on amiodarone. TTE with trace MR. He had been getting abx as below for a multilobar PNA. Pressors now off. ID consulted 04/28 for Pseudomonal bacteremia. On evaluation, patient reports feeling well. His SOB and cough have improved since admission. No chest pain, abdominal pain or vomiting. He did have diarrhea initially but says this has resolved and had a solid BM yesterday. No rashes, joint pain, back pain. No hardware or port, does have aortic aneurysm stent. Vanc 04/20 Levofloxacin 04/20>Cipro 04/21-04/22 Cefepime 04/21- Allergies Allergy/AdvReac Type Severity Reaction Status Date / Time JUAN R Inhibitors AdvReac Intermediate hyperkalemi Verified 04/20/23 09:32 a Home Medications Medication Instructions Recorded Confirmed Type ascorbate calcium (vitamin C) 500 500 mg PO QAM 09/23/18 04/21/23 History mg tablet aspirin 81 mg tablet,delayed 81 mg PO QAM 09/23/18 04/21/23 History release (Adult Aspirin Regimen) vitamin E succinate 268 mg (400 400 units PO QAM 11/30/18 04/21/23 History unit) tablet albuterol sulfate 90 mcg/actuation 2 inh inhalation QID PRN shortness 12/19/20 04/21/23 Rx aerosol inhaler of breath or wheezing #8.5 grams atorvastatin 20 mg tablet (Lipitor) 20 mg PO PM 90 days #90 tabs 06/24/22 04/21/23 Rx amlodipine 5 mg tablet 5 mg PO QPM 01/20/23 04/21/23 History cholecalciferol (vitamin D3) 50 50 mcg PO QPM 01/20/23 04/21/23 History mcg (2,000 unit) capsule (Vitamin D3) prochlorperazine maleate 10 mg 10 mg PO Q8H PRN Nausea 03/18/23 04/21/23 History tablet (Compazine) fluticasone fur. 100 mcg-umeclid 1 inh inhalation DAILY #60 ea 03/31/23 04/21/23 Rx 62.5 mcg-vilant 25 mcg inhalat.powder (Trelegy Ellipta) furosemide 20 mg tablet (Lasix) 20 mg PO Q OTHER DAY #30 tabs 03/31/23 04/21/23 Rx Oxygen Home E0424 #1 L 04/08/23 04/21/23 Rx dexamethasone 4 mg tablet 4 mg PO UD 04/21/23 04/21/23 History ondansetron 8 mg disintegrating 8 mg PO Q8 PRN Nausea And Vomiting 04/21/23 04/21/23 History tablet Patient History Medical History Chronic obstructive pulmonary disease Lower extremity edema BPH (benign prostatic hyperplasia) Hyperlipidemia Lung cancer Abdominal aortic aneurysm s/p repair 2015 Multiple pulmonary nodules determined by computed tomography of lung BPH (benign prostatic hyperplasia) Kidney stones hx PVC (premature ventricular contraction) on occasion Hypertension Diverticulosis Hyperlipemia COPD (chronic obstructive pulmonary disease) well controlled per pt > no res inh use Surgical History History of aortic aneurysm repair endovascular > [facility] [place] > 2016 > follows with [facility] cardiology. Has to go for scan on 02/06/23 to check for "leak around the stent" as evidence of size increase [facility] History of cataract surgery bilat History of tooth extraction dental implants History of lithotripsy History of inguinal hernia repair left x 1, right x 2. H/O colonoscopy 07/2020 repeat 5 years Family History Father Colon cancer Colorectal cancer Family/Other Heart disease Hypertension Mother Stroke Denies family history of Ovarian cancer Prostate cancer Myocardial infarction Breast cancer Social History Smoking Status: Former smoker Tobacco Type: Cigarettes Age Started Using Tobacco: 32; packs per day: 0.5; Cigarettes Per Day: 10 cigs per day; Smoking End Date: 01/27/2023; Second Hand Exposure: No; Do You Dip or Chew Tobacco: No; Tobacco Cessation Education Requested by Patient: No Hx Alcohol Use: No Hx Substance Use: No Preferred Language: Austrian Communication Ability: Effective Visual Impairment: Limited Hearing Ability: Normal Road Gang Supervisor Required: No Beliefs That Will Affect Care: None marital status: Current Living Situation: Spouse Current Living Situation Comment: lives with current 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 Physical Exam Physical Exam: General: Awake, alert, no acute distress HEENT: NC/AT, EOMI, mmm Neck: supple Lungs: respirations non-labored Heart: nl peripheral perfusion Abdomen: soft, NT/ND Back: no spinal tenderness Ext: no LE edema Skin: no rash Neuro: O x 3 Results & Data Vital Signs (Past 12 Hours) Vital Signs Temp Pulse Pulse Resp BP BP Pulse Ox 04/29/23 10:41 36.8 C 64 17 119/60 91 04/29/23 09:58 04/29/23 08:30 75 132/67 04/29/23 07:24 65 04/29/23 07:23 36.9 C 64 20 121/65 90 04/29/23 03:24 36.6 C 62 16 137/63 91 04/29/23 01:00 62 20 91 04/29/23 00:30 60 19 92 04/29/23 00:00 58 L 14 93 04/29/23 00:00 73 04/28/23 23:30 60 19 93 04/28/23 23:25 36.6 C 63 19 124/64 93 04/28/23 23:24 59 L 16 93 04/28/23 23:24 124/64 O2 Del Method O2 Flow Rate 04/29/23 10:41 Nasal Cannula 6 04/29/23 09:58 High Flow Nasal Cannula 6 04/29/23 08:30 04/29/23 07:24 04/29/23 07:23 High Flow Nasal Cannula 6 04/29/23 03:24 High Flow Nasal Cannula 6 04/29/23 01:00 04/29/23 00:30 04/29/23 00:00 04/29/23 00:00 04/28/23 23:30 04/28/23 23:25 High Flow Nasal Cannula 6 04/28/23 23:24 04/28/23 23:24 Laboratory Results Labs reviewed Diagnostic Findings imaging reviewed
[2023-04-29] MEDS: FUROSEMIDE INJ 20 MG/2 ML VIAL IV SCH (14:25)
--- NOTE | 2023-04-29 14:34 | Ultrasound Report ---
ULTRASOUND RIGHT UPPER QUADRANT ABDOMEN CLINICAL HISTORY: Sepsis. Elevated hepatic transaminases. COMPARISON STUDY: Abdominal CT dated 04/21/2023 TECHNIQUE: Real-time, grayscale, and color flow sonography of the right upper quadrant of the abdomen was performed. Images are reviewed in the transverse and longitudinal planes. FINDINGS: Liver: The liver is normal in size and echotexture. There is no intrahepatic biliary ductal dilatatio n. The main portal vein is patent. Gallbladder: The gallbladder is normal in appearance. There is biliary sludge. No shadowing gallstone s are identified. There is nonspecific gallbladder wall thickening. This measures up to 6 mm. No arielle cholecystic fluid is seen. A sonographic Mcdaniels's sign is reportedly absent. The common bile duct renny sures up to 0.5 cm in diameter. Pancreas: Visualized portions of the pancreatic head and body are normal in appearance. The splenic v ein is patent. Right kidney: Survey images of the right kidney demonstrate normal size and echotexture. There is no hydronephrosis. A 2.8 cm upper pole cyst is again noted. Ascites: None. IMPRESSION: 1. Biliary sludge with no shadowing gallstones are identified and no sonographic evidence of acute ch olecystitis. 2. Gallbladder wall thickening is nonspecific and may be related to fluid overload. Correlate clinica lly. 3. There is no intra or extrahepatic biliary ductal dilatation. ACT 112: Negative or not required by law. Electronically signed by: Edward Moore M.D. 04/29/2023 2:33 PM
--- NOTE | 2023-04-29 15:18 | XRay Report ---
SINGLE VIEW CHEST CLINICAL HISTORY: Hypoxia FINDINGS: An AP, portable, upright chest radiograph is compared to study dated 04/26/2023. Correlation is made with chest CT dated 04/21/2023. A right internal jugular central venous catheter has been rem tomasa. The heart is enlarged noting atherosclerotic calcification of the thoracic aorta. There is pulm onary vascular congestion. Emphysema and chronic interstitial thickening is similar to previous. Ther e are layering pleural effusions with dependent consolidation. No pneumothorax is seen. The skeletal structures are osteopenic. The bony thorax is grossly intact. IMPRESSION: 1. Cardiomegaly and emphysema with mild pulmonary vascular congestion. 2. Layering pleural effusions with bibasilar consolidation. Radiographic follow-up to resolution is r ecommended. ACT 112: Negative or not required by law. Electronically signed by: Edward Moore M.D. 04/29/2023 3:17 PM
[2023-04-29] MEDS ORDERED: HYDROCORTISONE 10 MG TAB PO ONE (16:00)
[2023-04-29] MEDS: COUGH DROP (SUGAR FREE) LOZ 24 LOZ/1 BOX BUCCAL ONE (17:25)
[2023-04-29] MEDS: HYDROCORTISONE 10 MG TAB PO SCH (17:42)
[2023-04-30 07:28] LABS: Albumin Globulin Ratio 0.8 (0.9-2); Albumin Level 2.3 gm/dl (3.4-5.0); BUN Creatinine Ratio 40.7 (10-20); Bilirubin,Total 2.3 mg/dl (0.2-1.0); Calcium 7.8 mg/dl (8.6-10.3); Est GFR (African American) 97.6 ml/min; Est GFR (Non-African American) 84.2 ml/min; Globulin 2.8 gm/dl (2.5-4.0); Magnesium 1.9 mg/dl (1.7-2.4); Potassium 3.4 mmol/L (3.5-5.1); Total Protein 5.1 gm/dl (6.0-8.3)
[2023-04-30 07:39] LABS: INR 1.1 (0.9-1.1); Prothrombin Time 11.6 Seconds (9.0-12.0)
[2023-04-30 07:56] LABS: Estimated Average Glucose 166 mg/dl; Hemoglobin A1C 7.4 % (4.5-5.6)
[2023-04-30 08:12] LABS: Basophils # (auto) 0.01 K/uL (0.00-0.20); Basophils % (auto) 0.1 %; Dohle Bodies 1+; Eosinophils # (auto) 0.01 K/uL (0.00-0.50); Eosinophils % (auto) 0.1 %; Hematocrit (blood only) 25.4 % (42.0-52.0); Hemoglobin 8.8 g/dl (14.0-18.0); Immature Granulocytes # (auto) 0.25 K/uL (0.01-0.20); Immature Granulocytes % (auto) 3.2 %; Lymphocytes % (auto) 3.8 %; Mean Corpuscular Hemoglobin 30.7 pg (25.0-34.0); Mean Corpuscular Hgb Conc 34.6 g/dL (32.0-36.0); Mean Corpuscular Volume 88.5 fL (80.0-100.0); Mean Platelet Volume 12.1 fL (9.4-12.4); Monocytes # (auto) 0.23 K/uL (0.11-0.59); Monocytes % (auto) 2.9 %; Neutrophils # (auto) 7.13 K/uL (1.40-6.50); Neutrophils % (auto) 89.9 %; Nucleated RBC # (auto) 0.03 K/uL (0.00-0.12); Nucleated RBC % (auto) 0.4 %; Platelet Count 49 K/uL (130-400); Polychromasia 1+; RDW Coefficient of Variation 15.4 % (11.5-14.5); RDW Standard Deviation 49.1 fL (36.4-46.3); Red Blood Count 2.87 M/uL (4.70-6.10); Toxic Granulation 1+; White Blood Count 7.93 K/ul (4.8-10.8)
[2023-04-30] MEDS ORDERED: HYDROCORTISONE 10 MG TAB PO ONE (09:00)
[2023-04-30] MEDS: POTASSIUM CHLORIDE CRTAB 20 MEQ TABCR PO STA (09:02)
--- NOTE | 2023-04-30 11:54 | Hospitalist Progress Note ---
Date of Service April 30, 2023 Assessment & Plan (1) Sepsis: Plan: Secondary to pseudomonas aeruginosa bacteremia from presumed pulmonary source Treated with vancomycin x1 dose, Levaquin x1 dose, ciprofloxacin x1 dose and cefepime (start date 04/20) Cefepime - last dose planned for 05/06 per infectious disease, procalcitonin remains positive Pt remains on hydrocortisone tapering per critical care recommendations, 50mg BID until 04/30 then switch to 50mg daily for 3 days then stop Crooks catheter now removed and urinating well (2) Acute and chronic respiratory failure with hypoxia: Plan: Baseline PRN oxygen only Pt with increased oxygen requirement from home use Multifactorial, has copd, lung cancer, pleural effusion, pneumonia and acute on chronic systolic heart failure No significant improvement in multiple days - remains on 6LPM high flow and dips to mid 80s on 5LPM, will get formal 2 step tomorrow with anticipation of discharge home otherwise may need to think about rehabilitation (3) Acute HFrEF (heart failure with reduced ejection fraction): Plan: Notably outpatient lasix only recently started by pulmonology per patient. [03/31] Now with possible contraction alkalosis - will continue Lasix 20mg IV daily to aim for negative fluid balance unless bicarb continues to increase (may need every other day dosing) (4) Transaminitis: Plan: Suspect either residual from shock vs amiodarone vs. hypervolemic state Diurese Hold amiodarone US liver - ?biliary sludge but without pain Repeat with AM labs - downtrending (5) Adenocarcinoma of left lung, stage 3: Plan: Metastatic adenocarcinoma in left lung, deemed not surgical candidate due to copd Started chemoradiation 3 weeks prior to admission (6) Elevated troponin: Plan: Secondary to demand-ischemia in setting of sepsis and a. fib RVR No chest pain at any point TTE LVEF 45%, grade II diastolic dysfunction (7) ABHISHEK (acute kidney injury): Plan: ABHISHEK resolved, CKD 3 (8) Afib: Plan: New onset atrial fibrillation in setting of sepsis Now in NSR Anticoagulation held due to thrombocytopenia Amiodarone on hold due to elevated LFTs (9) Pancytopenia due to antineoplastic chemotherapy: Plan: Neutropenia resolved, Platelets now improving (required platelet transfusions x2 earlier in admission), serotonin assay negative for HIT Filgrastim 480 mcg x3 daily given on admission (10) Elevated hemoglobin A1c: Plan: HbA1C 7.4, this does not correlate well with his glucose checks which are in the low 100s. Recommend following up with his PCP rather than starting on any medications at this time. (11) Bacterial pneumonia: (12) Bacteremia due to Pseudomonas: Plan VTE prophylaxis - plt up to 49, will start on Lovenox 40mg SQ daily Diet - heart healthy, T2DM Disposition - continued care on PCU Admission and Anticipated Discharge Date Admission Date: April 21, 2023 Subjective No significant change in leg swelling or shortness of breath on exertion. Reportedly did well with OT just before seen and able to walk around the room without any problems. Keen for discharge home at the earliest opportunity. Main ongoing problem is his significant oxygen requirement. Review of Systems Review of Systems: All systems reviewed & are unremarkable except as noted in HPI & below Physical Exam Constitutional: WD/WN, vitals as above Eyes: + anicteric sclerae; normal pupil size ENMT: external ear and nose normal, oropharynx normal Respiratory: normal respiratory effort; no respiratory distress Auscultation: + crackles; breath sounds present, no diminished lung sounds, no rales, no rhonchi and no wheezes Cardiovascular: Rate/Rhythm: regular rate and regular rhythm Heart Sounds: no murmur Extremities: + pedal edema Gastrointestinal (Abdomen): normal bowel sounds, soft, nontender, no hepatosplenomegaly Skin: no rashes, warm and dry Psychiatric: A+Ox3, euthymic affect Results & Data Results & Data Vital Signs (Past 12 Hours) Vital Signs Temp Pulse Pulse Resp BP Pulse Ox O2 Del Method 04/30/23 10:40 36.8 C 65 17 105/58 L 94 High Flow Nasal Cannula 04/30/23 09:55 High Flow Nasal Cannula 04/30/23 08:16 36.8 C 66 18 116/60 91 High Flow Nasal Cannula 04/30/23 07:04 57 L 04/30/23 01:59 36.9 C 54 L 16 105/57 L 93 High Flow Nasal Cannula O2 Flow Rate 04/30/23 10:40 6 04/30/23 09:55 6 04/30/23 08:16 6 04/30/23 07:04 04/30/23 01:59 6 PG Care Time/CCT Total # of Minutes Spent Total Time Spent with Patient: Total time spent is greater than 50% in coordination of care (as documented) at patient's floor/unit and/or counseling patient: Coding Level of Care Code 84861 SUB INP/OBS CARE 235MIN Diagnoses Sepsis A41.9 Acute and chronic respiratory failure with hypoxia J96.21 Acute HFrEF (heart failure with reduced ejection fraction) I50.21 Transaminitis R74.01 Adenocarcinoma of left lung, stage 3 C34.92 Elevated troponin R79.89 ABHISHEK (acute kidney injury) N17.9 Afib I48.91 Pancytopenia due to antineoplastic chemotherapy D61.810; T45.1X5A Elevated hemoglobin A1c R73.09 Bacterial pneumonia J15.9 Bacteremia due to Pseudomonas R78.81; B96.5
[2023-04-30] MEDS: ENOXAPARIN INJ 40 MG/0.4 ML SYR SQ SCH (20:43)
[2023-05-01 05:07] LABS: Hematocrit (blood only) 26.2 % (42.0-52.0); Hemoglobin 8.9 g/dl (14.0-18.0); Mean Corpuscular Hemoglobin 30.9 pg (25.0-34.0); Mean Platelet Volume 12.7 fL (9.4-12.4); Nucleated RBC # (auto) 0.02 K/uL (0.00-0.12); Nucleated RBC % (auto) 0.3 %; Platelet Count 60 K/uL (130-400); RDW Coefficient of Variation 15.7 % (11.5-14.5); RDW Standard Deviation 50.5 fL (36.4-46.3); Red Blood Count 2.88 M/uL (4.70-6.10); White Blood Count 6.75 K/ul (4.8-10.8)
[2023-05-01 05:19] LABS: BUN Creatinine Ratio 44.2 (10-20); Est GFR (African American) 97.6 ml/min; Est GFR (Non-African American) 84.2 ml/min; Magnesium 1.9 mg/dl (1.7-2.4); Potassium 3.8 mmol/L (3.5-5.1)
[2023-05-01 06:41] LABS: Basophils # (auto) 0.01 K/uL (0.00-0.20); Basophils % (auto) 0.1 %; Immature Granulocytes # (auto) 0.38 K/uL (0.01-0.20); Immature Granulocytes % (auto) 5.6 %; Neutrophils # (auto) 5.96 K/uL (1.40-6.50); Neutrophils % (auto) 88.3 %; Polychromasia 1+; Toxic Granulation 1+
[2023-05-01] MEDS: METOPROLOL TARTRATE 25 MG TAB PO STA (08:15)
[2023-05-01] MEDS: HYDROCORTISONE 10 MG TAB PO SCH (08:17)
[2023-05-01] MEDS ORDERED: HYDROCORTISONE 10 MG TAB PO ONE (09:00)
--- NOTE | 2023-05-01 10:12 | Infectious Disease Progress Nt ---
Date of Service May 01, 2023 Assessment & Plan (1) Bacterial pneumonia: (2) Bacteremia due to Pseudomonas: (3) Septic shock: (4) Afib: (5) ABHISHEK (acute kidney injury): (6) Neutropenia: Plan 78yo M with h/o metastatic lung cancer on chemo/XRT (gets chemo on Mondays, no port, on carboplatin/paclitaxel since 04/20/23), PTX after biopsy, COPD, chronic hypoxia on 1L NC who presented on 04/20 with fever, SOB, hypoxia and tachycardia along with productive cough. On admission, he was febrile to 38.3, now afebrile. BP in the 70s. Hypoxic requiring HFNC, currently 6L. WBC 0.62 (ANC 540)>>10.64>6.75. Cr 1.90>>0.86, LFT initially wnl (then elevated up to 164 and 490). Troponin elevated. PCT 24.90. UA negative. GIPP negative. RPP negative. BCX with PsA. CXR with development of patchy bilateral mid to lower lung zone airspace opacity suggestive of a pneumonia. CTA chest neg for PE, noted patchy bl airspace consolidations at the lung bases, RML, and lingual c/w multilobar pneumonia. CTAP with IV showed diverticulosis, bl nonobstructing renal calculi, hepatic steatosis. He was started on pressors and admitted to the ICU. Also started on management for new onset Afib and is currently on amiodarone. TTE with trace MR. He had been getting abx as below for a multilobar PNA. Pressors now off. ID consulted 04/28 for Pseudomonal bacteremia. Course c/b transaminitis, amiodarone stopped and LFTs downtrending. RUQ u/s with biliary sludge, no cholecystitis. Pseudomonal bacteremia likely in setting of his pneumonia. Would treat for a duration of 14 days for the bacteremia, especially in an immunocompromised individual. This could be done with levofloxacin or IV cefepime. Note there is an interaction with amiodarone, his QTc was 418 on last EKG. If he is to remain off of amiodarone, then levofloxacin may be used on discharge. If amiodarone is to be restarted, then he should complete abx with cefepime. End of therapy is on 05/06. Vanc 04/20 Levofloxacin 04/20>Cipro 04/21-04/22 Cefepime 04/21- present 04/20 BCX: P aeruginosa in multiple sets (castellon-S) 04/23 BCX: ngtd # Pseudomonas aeruginosa bacteremia # Respiratory failure 2/2 multliobar PNA # Septic shock off pressors # Neutropenia - improved # ABHISHEK - improved # New onset Afib # Transaminitis - downtrending # h/o lung cancer on chemo - continue cefepime 2g IV q8h - he will need 14 days of abx (starting 04/23, eot 05/06) - if he remains off of amiodarone, course can be completed with levofloxacin 750mg PO daily. Otherwise would use cefepime (2g IV q8h or 6g IV continuous infusion q24h for ease of administration) - monitor weekly CBC w diff and CMP while on IV abx (twice weekly while inpatient) ID will discontinue active follow up at this time. Please do not hesitate to reconsult the Infectious Diseases service as needed. Chanelle Neal MD [facility], Division of Infectious Diseases [employer]Connect: [phone] Admission and Anticipated Discharge Date Admission Date: April 21, 2023 Subjective This patient recommendation is based on a telemedicine consult request which was completed asynchronously through chart review and information provided by the primary physician. The patient was not seen or examined today. The evaluation is consultative in nature and all patient care and treatment decisions can either be accepted or rejected by the patient's primary hospital-based treating ph ysician using their own independent medical judgment for their patient. Time Spent Reviewing Chart: 31+ minutes Results & Data Vital Signs (Past 12 Hours) Vital Signs Temp Pulse Pulse Pulse Pulse Pulse Pulse 05/01/23 07:58 110 H 115 H 120 H 115 H 100 H 05/01/23 07:50 36.7 C 05/01/23 03:28 36.6 C 04/30/23 23:14 65 04/30/23 22:47 36.7 C 04/30/23 22:42 Pulse Pulse Resp Resp Resp Resp Resp 05/01/23 07:58 105 H 26 H 26 H 26 H 26 H 05/01/23 07:50 110 H 20 05/01/23 03:28 60 18 04/30/23 23:14 04/30/23 22:47 63 18 04/30/23 22:42 Resp Resp BP BP Pulse Ox Pulse Ox Pulse Ox 05/01/23 07:58 22 22 85 L 89 L 05/01/23 07:50 117/75 91 05/01/23 03:28 127/62 90 04/30/23 23:14 04/30/23 22:47 119/68 91 04/30/23 22:42 Pulse Ox Pulse Ox Pulse Ox Pulse Ox O2 Del Method O2 Flow Rate O2 Flow Rate 05/01/23 07:58 86 L 89 L 89 L 85 L 6 05/01/23 07:50 High Flow Nasal Cannula 6 05/01/23 03:28 High Flow Nasal Cannula 6 04/30/23 23:14 04/30/23 22:47 High Flow Nasal Cannula 6 04/30/23 22:42 High Flow Nasal Cannula 6 O2 Flow Rate O2 Flow Rate O2 Flow Rate O2 Flow Rate 05/01/23 07:58 8 8 10 6 05/01/23 07:50 05/01/23 03:28 04/30/23 23:14 04/30/23 22:47 04/30/23 22:42
--- NOTE | 2023-05-01 18:42 | Hospitalist Progress Note ---
Date of Service May 01, 2023 Assessment & Plan (1) Sepsis: Plan: Secondary to pseudomonas aeruginosa bacteremia from presumed pulmonary source Now set up for cefepime through 05/06 per ID recommendations -Stable for home, but IV antibiotics/home health was not able to start until tomorrowtherefore discharge held over until 05/01 (2) Acute and chronic respiratory failure with hypoxia: Plan: Baseline PRN oxygen only Pt with increased oxygen requirement from home use Multifactorial, has copd, lung cancer, pleural effusion, pneumonia and acute on chronic systolic heart failure Set up for escalated home oxygen needs, I suspect as his pneumonia clears and his deconditioning improves he will hopefully be able to wean down some. Case management was able to procure equipment to meet his needs. (3) Afib: Plan: New onset atrial fibrillation in setting of sepsis Extensive discussion with patient and family about atrial fibrillation, i.e. its management, its manifestationshe is bouncing between A-fib, and then sinus with fairly low/reasonable rates. Was on amiodarone from earlier in his hospital stay, will continue this for now, possibly be able to transition to metoprolol as an outpatient depending on his rates. Discussed anticoagulationhe expresses a good understandingfull anticoagulation was held earlier in his hospital stay due to thrombocytopenia, but now his platelets have been above 50, and obviously stroke risk is fairly significantso Eliquis started. --> Will need to have outpatient CBCs to follow his platelets to ensure the viability of continuing on the Eliquis, but prior to this admission he did not show any thrombocytopenia, making me suspect that his current thrombocytopenia was much more due to his septic response than anything --> Echocardiogram reviewed, I did not see a TSH, for completeness I ordered 1 for the morning (4) Acute HFrEF (heart failure with reduced ejection fraction): Plan: Notably outpatient lasix only recently started by pulmonology per patient. [03/31] (5) Transaminitis: Plan: Suspect either residual from shock vs amiodarone vs. hypervolemic state US liver - ?biliary sludge but without pain Repeat with AM labs - downtrendingif persists and if amiodarone still possible culprit, that would be another reason to stop it sooner and switch to metoprolol sooner. (6) Adenocarcinoma of left lung, stage 3: Plan: Metastatic adenocarcinoma in left lung, deemed not surgical candidate due to copd Started chemoradiation 3 weeks prior to admission Extensive discussion on nutrition (7) Elevated troponin: Plan: Secondary to demand-ischemia in setting of sepsis and a. fib RVR No chest pain at any point TTE LVEF 45%, grade II diastolic dysfunction (8) ABHISHEK (acute kidney injury): Plan: ABHISHEK resolved, CKD 3 (9) Pancytopenia due to antineoplastic chemotherapy: Plan: Neutropenia resolved, Platelets now improving (required platelet transfusions x2 earlier in admission), serotonin assay negative for HIT Filgrastim 480 mcg x3 daily given on admission, also may have been septic related cell count dropped (10) Elevated hemoglobin A1c: Plan: HbA1C 7.4, this does not correlate well with his glucose checks which are in the low 100s. Recommend following up with his PCP rather than starting on any medications at this time. (11) Bacterial pneumonia: (12) Bacteremia due to Pseudomonas: Plan VTE prophylaxis -as above noted, now that his platelets are above 50 and rising, escalated from Lovenox to Eliquis given his atrial fibrillation Diet - heart healthy, T2DM Disposition -hopefully home tomorrow, close outpatient PCP and oncology follow- up, weekly CBC and CMP if not more often depending on his clinical status. Admission and Anticipated Discharge Date Admission Date: April 21, 2023 Subjective Feeling a good bit better and would like to go home. In discussion with case management, his home IV antibiotics cannot be set up until tomorrow, and they did have a little bit of difficulty in getting his higher oxygen flow set up. That said, at the end of the afternoon, I was informed by case management that all of his needs will be met for a discharge tomorrow, 05/01. In discussion of his going into atrial fibrillation around 630 this morningwith RVR up to about 130 beats a minutehe felt absolutely none of it. No chest pain no shortness of breath. Generally feels well. We had an extensive discussion about atrial fibrillation. He also notes feeling not much of an appetite, and does not really think he eats enoughthis launched a very detailed and lengthy discussion about the critical importance of nutrition. Review of Systems Review of Systems: All systems reviewed & are unremarkable except as noted in HPI & below Physical Exam Physical Exam: In general he is awake and alert pleasant no distress. HEENT normocephalic atraumatic mucous membranes moist. Breathing unlabored no accessory muscle use good effort. Skin shows no rashes no pallor or icterus. Neuro without focal deficits Results & Data Results & Data Vital Signs (Past 12 Hours) Vital Signs Temp Pulse Pulse Pulse Pulse Pulse Pulse 05/01/23 16:00 59 L 05/01/23 15:08 98.1 F 05/01/23 14:08 05/01/23 13:45 05/01/23 11:25 97.7 F 05/01/23 10:52 05/01/23 08:00 55 L 05/01/23 07:58 110 H 115 H 120 H 115 H 100 H 05/01/23 07:50 98.1 F Pulse Pulse Resp Resp Resp Resp Resp 05/01/23 16:00 05/01/23 15:08 61 20 05/01/23 14:08 05/01/23 13:45 05/01/23 11:25 54 L 20 05/01/23 10:52 05/01/23 08:00 05/01/23 07:58 105 H 26 H 26 H 26 H 26 H 05/01/23 07:50 110 H 20 Resp Resp BP Pulse Ox Pulse Ox Pulse Ox Pulse Ox 05/01/23 16:00 05/01/23 15:08 122/71 94 05/01/23 14:08 05/01/23 13:45 95 05/01/23 11:25 105/63 94 05/01/23 10:52 05/01/23 08:00 05/01/23 07:58 22 22 85 L 89 L 86 L 05/01/23 07:50 117/75 91 Pulse Ox Pulse Ox Pulse Ox O2 Del Method O2 Flow Rate O2 Flow Rate O2 Flow Rate 05/01/23 16:00 05/01/23 15:08 High Flow Nasal Cannula 10 05/01/23 14:08 10 05/01/23 13:45 05/01/23 11:25 High Flow Nasal Cannula 10 05/01/23 10:52 High Flow Nasal Cannula 6 05/01/23 08:00 05/01/23 07:58 89 L 89 L 85 L 6 8 05/01/23 07:50 High Flow Nasal Cannula 6 O2 Flow Rate O2 Flow Rate O2 Flow Rate 05/01/23 16:00 05/01/23 15:08 05/01/23 14:08 05/01/23 13:45 03/22/24 11:25 05/01/23 10:52 05/01/23 08:00 05/01/23 07:58 8 10 6 05/01/23 07:50 PG Care Time/CCT Total # of Minutes Spent Total Time Spent with Patient: Total time spent is greater than 50% in coordination of care (as documented) at patient's floor/unit and/or counseling patient: Coding Level of Care Code 74839 SUB INP/OBS CARE 3/50MIN Diagnoses Sepsis A41.9 Acute and chronic respiratory failure with hypoxia J96.21 Afib I48.91 Acute HFrEF (heart failure with reduced ejection fraction) I50.21 Transaminitis R74.01 Adenocarcinoma of left lung, stage 3 C34.92 Elevated troponin R79.89 ABHISHEK (acute kidney injury) N17.9 Pancytopenia due to antineoplastic chemotherapy D61.810; T45.1X5A Elevated hemoglobin A1c R73.09 Bacterial pneumonia J15.9 Bacteremia due to Pseudomonas R78.81; B96.5
[2023-05-01] MEDS: APIXABAN 5 MG TABLET PO SCH (20:05)
[2023-05-01] MEDS: PNEUMOCOCCAL VACCINE (PCV20) 20-VAL CONJ-DIP CRM/PF 0.5 ML SYR IM ONE (20:05)
[2023-05-01] MEDS: INFLUENZA VACCINE HIGH-DOSE (HD-IIV4) PF 65+ 0.7mL SYR IM ONE (20:05)
[2023-05-01] MEDS ORDERED: METOPROLOL TARTRATE 25 MG TAB PO SCH (21:00)
[2023-05-02] MEDS: ALBUT/IPRATROP 3MG/0.5MG NEB 3 ML VIAL NEB PRN (03:42)
[2023-05-02 05:14] LABS: Hematocrit (blood only) 25.8 % (42.0-52.0); Mean Corpuscular Hemoglobin 31.7 pg (25.0-34.0); Mean Corpuscular Hgb Conc 34.9 g/dL (32.0-36.0); Mean Corpuscular Volume 90.8 fL (80.0-100.0); Mean Platelet Volume 12.5 fL (9.4-12.4); Platelet Count 78 K/uL (130-400); RDW Coefficient of Variation 15.6 % (11.5-14.5); RDW Standard Deviation 50.7 fL (36.4-46.3); Red Blood Count 2.84 M/uL (4.70-6.10); White Blood Count 5.15 K/ul (4.8-10.8)
[2023-05-02 05:27] LABS: Albumin Globulin Ratio 0.8 (0.9-2); Albumin Level 2.3 gm/dl (3.4-5.0); BUN Creatinine Ratio 40.2 (10-20); Creatinine Clr Calc Pharmacy 67.5 ml/min; Est GFR (African American) 97.2 ml/min; Est GFR (Non-African American) 83.8 ml/min; Potassium 3.4 mmol/L (3.5-5.1); Total Protein 5.3 gm/dl (6.0-8.3)
--- NOTE | 2023-05-02 05:31 | Communication Note ---
Date of Service: May 02, 2023 Notified by nursing that patient had drop in oxygen saturation to 86% while on 10L high flow, he was subsequently put on 12L/BiPAP and oxygen saturation cu rrently at 99%. Per chart review, patient was at 10L for most of the afternoon/evening. I went to bedside, patient was sleeping soundly with BiPAP in place. Patient's is at bedside and notes that he was able to do a lot with PT in the last day and they were hopeful that he would be discharged today. On auscultation, some course rhonchi appreciated, no rales noted. Morning labs pending at time of encounter. Will order chest x-ray for comparison, but in setting of no fever etc and no evidence of fluid overload on exam, will defer changes in antibiotic regimen and/or additional diuresis to day team. Resident Activity Tracking Resident Involvement: Resident Care Provided Care Provided: Adult Hospital Medicine
[2023-05-02 05:42] LABS: Thyroid Stimulating Hormone 2.594 uIu/ml (0.300-4.500)
[2023-05-02 06:20] LABS: Basophils # (auto) 0.01 K/uL (0.00-0.20); Basophils % (auto) 0.2 %; Eosinophils # (auto) 0.03 K/uL (0.00-0.50); Eosinophils % (auto) 0.6 %; Immature Granulocytes # (auto) 0.09 K/uL (0.01-0.20); Immature Granulocytes % (auto) 1.7 %; Lymphocytes % (auto) 5.8 %; Monocytes # (auto) 0.22 K/uL (0.11-0.59); Monocytes % (auto) 4.3 %; Neutrophils % (auto) 87.4 %; Polychromasia 1+; Rouleaux 1+; Toxic Granulation 1+
--- NOTE | 2023-05-02 07:55 | XRay Report ---
XR chest 1V portable CLINICAL HISTORY: pneumonia, increased oxygen requirement COMPARISON STUDY: Chest CT April 21, 2023. Chest radiograph April 29, 2023. FINDINGS: There is no pneumothorax. Small bilateral pleural effusions are similar to prior exam. Card iomegaly is silhouette is stable. Pulmonary vascular congestion has not significantly changed. Bibasi lar airspace opacities persist. IMPRESSION: 1. Persistent bibasilar opacities suggestive of pneumonia. 2. No change in small bilateral pleural effusions. ACT 112: Negative or not required by law. Electronically signed by: Ascencion Hodge M.D. 05/02/2023 7:53 AM
[2023-05-02] MEDS: POTASSIUM CHLORIDE CRTAB 20 MEQ TABCR PO STA (08:57)
--- NOTE | 2023-05-02 10:44 | Hospitalist Progress Note ---
Date of Service May 02, 2023 Assessment & Plan (1) Sepsis: Plan: Secondary to pseudomonas aeruginosa bacteremia from presumed pulmonary source Now set up for cefepime through 05/06 per ID recommendations Slight worsening in respiratory status overnight with O2 needs increasing to 10 L/min, will monitor through the day today Tentatively plan for discharge tomorrow if oxygen status improves with O2 IV antibiotics/home health (2) Acute and chronic respiratory failure with hypoxia: Plan: Baseline PRN oxygen only Pt with increased oxygen requirement from home use Multifactorial, has copd, lung cancer, pleural effusion, pneumonia and acute on chronic systolic heart failure Slight worsening in respiratory status overnight with O2 needs increasing to 10 L/min of uncertain etiology, will titrate with SpO2 goals greater than 88%. Will trial second dose of IV Lasix this afternoon to see if some O2 increases secondary to pulmonary vascular congestion/pleural effusions Tentatively plan for discharge tomorrow if oxygen status improves with O2, IV antibiotics/home health (3) Afib: Plan: New onset atrial fibrillation in setting of sepsis Extensive discussion had with patient and family about atrial fibrillation, i.e. its management, its manifestationshe is bouncing between A-fib, and then sinus with fairly low/reasonable rates. Was on amiodarone from earlier in his hospital stay, will continue this for now, possibly be able to transition to metoprolol as an outpatient depending on his rates. Discussed anticoagulat eulalio expresses a good understandingfull anticoagulation was held earlier in his hospital stay due to thrombocytopenia, but now his platelets have been above 50, and obviously stroke risk is fairly significantso Eliquis started TSH normal --> Will need to have outpatient CBCs to follow his platelets to ensure the viability of continuing on the Eliquis, but prior to this admission he did not show any thrombocytopenia, making me suspect that his current thrombocytopenia was much more due to his septic response than anything --> Echocardiogram reviewed (4) Acute HFrEF (heart failure with reduced ejection fraction): Plan: Notably outpatient lasix only recently started by pulmonology per patient. [03/31] Repeat second lasix dose this afternoon as vascular congestion/pleural effusions likely contributing to poor pulmonary status (5) Transaminitis: Plan: Suspect either residual from shock vs amiodarone vs. hypervolemic state US liver - ?biliary sludge but without pain Trend with AM labs - downtrendingif persists and if amiodarone still possible culprit, that would be another reason to stop it sooner and switch to metoprolol sooner. (6) Adenocarcinoma of left lung, stage 3: Plan: Metastatic adenocarcinoma in left lung, deemed not surgical candidate due to copd Started chemoradiation 3 weeks prior to admission - has outpatient follow up visit on Thursday Extensive discussion on nutrition (7) Elevated troponin: Plan: Secondary to demand-ischemia in setting of sepsis and a. fib RVR No chest pain at any point TTE LVEF 45%, grade II diastolic dysfunction (8) ABHISHEK (acute kidney injury): Plan: ABHISHEK resolved, CKD 3 (9) Pancytopenia due to antineoplastic chemotherapy: Plan: Neutropenia resolved, Platelets now improving (required platelet transfusions x2 earlier in admission), serotonin assay negative for HIT Filgrastim 480 mcg x3 daily given on admission, also may have been septic related cell count dropped (10) Elevated hemoglobin A1c: Plan: HbA1C 7.4, this does not correlate well with his glucose checks which are in the low 100s. Recommend following up with his PCP rather than starting on any medications at this time. (11) Bacterial pneumonia: (12) Bacteremia due to Pseudomonas: (13) Thrush: Plan: Suspect tongue findings related to thrush, notes he had previously Clotrimazole ordered (14) Hypokalemia: Plan: Repleted Plan VTE prophylaxis -as above noted, now that his platelets are above 50 and rising, escalated from Lovenox to Eliquis given his atrial fibrillation Diet - heart healthy, T2DM Disposition -hopefully home tomorrow, close outpatient PCP and oncology follow- up, weekly CBC and CMP if not more often depending on his clinical status. Admission and Anticipated Discharge Date Admission Date: April 21, 2023 Subjective Overall feels like he is improving there is hospital course, but does feel his respiratory status worsened a little bit overnight. Does not feel he is quite ready to be discharged home yet Review of Systems Review of Systems: Per subjective Physical Exam Physical Exam: General: Awake, NAD HEENT: erythematous plaques/sores on tongue Cardiovascular: RRR, no M/R/G Pulmonary: Diminished breath sounds throughout, absent at bases Extremities: Moving all extremities, +pitting pedal edema Integumentary: No suspicious rash or lesion on exposed skin Neurologic: AAOx3, no focal deficits Psychiatric: Appropriate mood/affect Results & Data Results & Data Vital Signs (Past 12 Hours) Vital Signs Temp Pulse Pulse Resp BP Pulse Ox O2 Del Method 05/02/23 07:45 18 93 Oxymask 05/02/23 07:37 63 05/02/23 07:30 Oxymask 05/02/23 06:03 89 L Oxymask 05/02/23 05:00 88 L High Flow Nasal Cannula 05/02/23 04:29 99 BiPAP 05/02/23 03:52 62 18 90 BiPAP 05/02/23 03:50 58 L 26 H 90 05/02/23 03:14 37.2 C 60 20 142/70 H 86 L High Flow Nasal Cannula 05/01/23 23:00 36.9 C 60 20 122/64 89 L High Flow Nasal Cannula O2 Flow Rate FiO2 05/02/23 07:45 10 05/02/23 07:37 05/02/23 07:30 10 05/02/23 06:03 10 05/02/23 05:00 10 05/02/23 04:29 12 05/02/23 03:52 90 05/02/23 03:50 90 05/02/23 03:14 10 05/01/23 23:00 10 Laboratory Results Reviewed labs from this morninghemoglobin stable at 9.0, normal WBC, platelets low but stable at 78, potassium mildly low at 3.4, AST and ALT downtrending to 99 and 227 respectively, alkaline phosphatase mild increased to 186, downtrending total bilirubin to 2.0, normal TSH Diagnostic Findings Chest x-ray obtained earlier this morning demonstrates persistent bibasilar opacities suggestive of pneumonia, pulmonary vascular congestion largely unchanged, and small bilateral pleural effusions similar to prior radiographs PG Care Time/CCT Total # of Minutes Spent Total Time Spent with Patient: Total time spent is greater than 50% in coordination of care (as documented) at patient's floor/unit and/or counseling patient: Coding Level of Care Code 16175 SUB INP/OBS CARE 3/50MIN Diagnoses Sepsis A41.9 Acute and chronic respiratory failure with hypoxia J96.21 Afib I48.91 Acute HFrEF (heart failure with reduced ejection fraction) I50.21 Transaminitis R74.01 Adenocarcinoma of left lung, stage 3 C34.92 Elevated troponin R79.89 ABHISHEK (acute kidney injury) N17.9 Pancytopenia due to antineoplastic chemotherapy D61.810; T45.1X5A Elevated hemoglobin A1c R73.09 Bacterial pneumonia J15.9 Bacteremia due to Pseudomonas R78.81; B96.5 Thrush B37.0 Hypokalemia E87.6
[2023-05-02] MEDS: CLOTRIMAZOLE 10 MG TROCHE BUCCAL SCH (12:31)
[2023-05-02] MEDS: FUROSEMIDE INJ 20 MG/2 ML VIAL IV ONE (16:19)
[2023-05-03 04:56] LABS: Hemoglobin 8.5 g/dl (14.0-18.0); Mean Corpuscular Hemoglobin 30.7 pg (25.0-34.0); Mean Corpuscular Hgb Conc 32.7 g/dL (32.0-36.0); Mean Corpuscular Volume 93.9 fL (80.0-100.0); Mean Platelet Volume 12.3 fL (9.4-12.4); Platelet Count 89 K/uL (130-400); RDW Coefficient of Variation 15.8 % (11.5-14.5); RDW Standard Deviation 53.7 fL (36.4-46.3); Red Blood Count 2.77 M/uL (4.70-6.10); White Blood Count 4.54 K/ul (4.8-10.8)
[2023-05-03 05:16] LABS: Albumin Level 2.3 gm/dl (3.4-5.0); BUN Creatinine Ratio 34.1 (10-20); Bilirubin Direct 0.8 mg/dl (0-0.2); Bilirubin,Total 1.6 mg/dl (0.2-1.0); Creatinine Clr Calc Pharmacy 69.1 ml/min; Est GFR (African American) 98.1 ml/min; Est GFR (Non-African American) 84.6 ml/min; Total Protein 5.4 gm/dl (6.0-8.3)
[2023-05-03] MEDS: POTASSIUM CHLORIDE CRTAB 20 MEQ TABCR PO STA (08:58)
--- NOTE | 2023-05-03 10:59 | Hospitalist Progress Note ---
Date of Service May 03, 2023 Assessment & Plan (1) Sepsis: Plan: Secondary to pseudomonas aeruginosa bacteremia from presumed pulmonary source Cefepime through 05/06 per ID recommendations Tentatively plan for discharge tomorrow if oxygen status improves with O2 IV a ntibiotics/home health (2) Acute and chronic respiratory failure with hypoxia: Plan: Baseline PRN oxygen only Pt with increased oxygen requirement from home use Multifactorial, has copd, lung cancer, pleural effusion, pneumonia and acute on chronic systolic heart failure Titrate with SpO2 goals greater than 88%. Two-step test today demonstrates 3 L at rest (ok with 2L but needs 3 when reclining) and 10 L with activity Will trial second dose of IV Lasix this afternoon - will increase to 40mg this afternoon - as this did seem to help his overall oxygenation yesterday and may help again if some O2 increases secondary to pulmonary vascular congestion/pleural effusions Tentatively plan for discharge tomorrow if oxygen status improves with O2, IV antibiotics/home health (3) Afib: Plan: New onset atrial fibrillation in setting of sepsis Extensive discussion had with patient and family about atrial fibrillation, i.e. its management, its manifestationshe is bouncing between A-fib, and then sinus with fairly low/reasonable rates. Was on amiodarone from earlier in his hospital stay, will continue this for now, possibly be able to transition to metoprolol as an outpatient depending on his rates. Discussed anticoagulationhe expresses a good understandingfull anticoagulation was held earlier in his hospital stay due to thrombocytopenia, but now his platelets have been above 50, and obviously stroke risk is fairly significantso Eliquis started TSH normal Will need to have outpatient CBCs to follow his platelets to ensure the viability of continuing on the Eliquis, but prior to this admission he did not show any thrombocytopenia, making me suspect that his current thrombocytopenia was much more due to his septic response than anything Echocardiogram reviewed (4) Acute HFrEF (heart failure with reduced ejection fraction): Plan: Notably outpatient lasix only recently started by pulmonology per patient. [03/31] Repeat second lasix at higher dose this afternoon as vascular congestion/pleural effusions likely contributing to poor pulmonary status May require prescribed potassium on discharge as likely hypokalemia due to lasix (5) Transaminitis: Plan: Suspect either residual from shock vs amiodarone vs. hypervolemic state US liver - ?biliary sludge but without pain Trend with AM labs - downtrendingif persistently elevated and if amiodarone still possible culprit, that would be another reason to stop it sooner and switch to metoprolol sooner. (6) Adenocarcinoma of left lung, stage 3: Plan: Metastatic adenocarcinoma in left lung, deemed not surgical candidate due to copd Started chemoradiation 3 weeks prior to admission - has outpatient follow up visit on Wednesday 05/03 that will be rescheduled Extensive discussion previously regarding nutrition (7) Elevated troponin: Plan: Secondary to demand-ischemia in setting of sepsis and a. fib RVR No chest pain at any point TTE LVEF 45%, grade II diastolic dysfunction (8) ABHISHEK (acute kidney injury): Plan: ABHISHEK resolved, CKD 3 (9) Pancytopenia due to antineoplastic chemotherapy: Plan: Neutropenia resolved, Platelets now improving (required platelet transfusions x2 earlier in admission), serotonin assay negative for HIT Filgrastim 480 mcg x3 daily given on admission, also may have been septic related cell count dropped (10) Elevated hemoglobin A1c: Plan: HbA1C 7.4, this does not correlate well with his glucose checks which are in the low 100s. Recommend following up with his PCP rather than starting on any medications at this time. (11) Bacterial pneumonia: Plan: See abov (12) Bacteremia due to Pseudomonas: Plan: See above (13) Thrush: Plan: Suspect tongue findings related to thrush, notes he had previously Clotrimazole ordered (14) Hypokalemia: Plan: Repleted, may require prescribed supplementation on discharge Plan VTE prophylaxis -as above noted, now that his platelets are above 50 and rising, escalated from Lovenox to Eliquis given his atrial fibrillation Diet - heart healthy, T2DM Disposition -hopefully home tomorrow, close outpatient PCP and oncology follow- up - will cancel chemo/radiation scheduled 05/03- weekly CBC and CMP if not more often depending on his clinical status. Admission and Anticipated Discharge Date Admission Date: April 21, 2023 Subjective Overall feels like he is improving there is hospital course, but feeling discouraged with his 2 step test this morning given the increased oxygen requirements to 10 L with exertion and overall fatigue with exertion. Does not feel he is quite ready to be discharged home yet. Notes he has chemo and radiation scheduled for tomorrow. Inquiring about handicap placard Review of Systems Review of Systems: Per subjective Physical Exam Physical Exam: General: Awake, NAD Cardiovascular: RRR, no M/R/G Pulmonary: Diminished breath sounds throughout, essentially absent at bases Extremities: Moving all extremities, +pitting pedal edema Integumentary: No suspicious rash or lesion on exposed skin Neurologic: AAOx3, no focal deficits Psychiatric: Appropriate mood/affect Results & Data Results & Data Vital Signs (Past 12 Hours) Vital Signs Temp Pulse Pulse Pulse Pulse Resp Resp 05/03/23 10:12 136 H 79 28 H 05/03/23 09:46 86 18 05/03/23 08:26 36.9 C 63 19 05/03/23 08:00 05/03/23 08:00 71 05/03/23 03:29 36.9 C 59 L 18 05/03/23 00:37 Resp BP Pulse Ox Pulse Ox Pulse Ox O2 Del Method O2 Flow Rate 05/03/23 10:12 20 89 L 93 05/03/23 09:46 97 Nasal Cannula 2 05/03/23 08:26 118/65 95 High Flow Nasal Cannula 4 05/03/23 08:00 Nasal Cannula 3 05/03/23 08:00 05/03/23 03:29 123/68 94 High Flow Nasal Cannula 6 05/03/23 00:37 High Flow Nasal Cannula 6 O2 Flow Rate O2 Flow Rate 05/03/23 10:12 10 3 05/03/23 09:46 05/03/23 08:26 05/03/23 08:00 05/03/23 08:00 05/03/23 03:29 05/03/23 00:37 Laboratory Results Reviewed labs from todaynotable for hemoglobin 8.5, platelet 89, potassium low at 3.0, creatinine stable at 0.85, low calcium at 8.0, downtrending LFTs PG Care Time/CCT Total # of Minutes Spent Total Time Spent with Patient: Total time spent is greater than 50% in coordination of care (as documented) at patient's floor/unit and/or counseling patient: Coding Level of Care Code 34740 SUB INP/OBS CARE 3/50MIN Diagnoses Sepsis A41.9 Acute and chronic respiratory failure with hypoxia J96.21 Afib I48.91 Acute HFrEF (heart failure with reduced ejection fraction) I50.21 Transaminitis R74.01 Adenocarcinoma of left lung, stage 3 C34.92 Elevated troponin R79.89 ABHISHEK (acute kidney injury) N17.9 Pancytopenia due to antineoplastic chemotherapy D61.810; T45.1X5A Elevated hemoglobin A1c R73.09 Bacterial pneumonia J15.9 Bacteremia due to Pseudomonas R78.81; B96.5 Thrush B37.0 Hypokalemia E87.6
[2023-05-03] MEDS: FUROSEMIDE 40 MG/4 ML VIAL IV ONE (16:27)
[2023-05-04 06:06] LABS: Hematocrit (blood only) 25.5 % (42.0-52.0); Hemoglobin 8.3 g/dl (14.0-18.0); Mean Corpuscular Hemoglobin 30.4 pg (25.0-34.0); Mean Corpuscular Hgb Conc 32.5 g/dL (32.0-36.0); Mean Corpuscular Volume 93.4 fL (80.0-100.0); Mean Platelet Volume 11.7 fL (9.4-12.4); Platelet Count 108 K/uL (130-400); RDW Coefficient of Variation 15.8 % (11.5-14.5); RDW Standard Deviation 52.2 fL (36.4-46.3); Red Blood Count 2.73 M/uL (4.70-6.10); White Blood Count 4.16 K/ul (4.8-10.8)
[2023-05-04 06:23] LABS: Albumin Level 2.3 gm/dl (3.4-5.0); BUN Creatinine Ratio 29.7 (10-20); Bilirubin Direct 0.7 mg/dl (0-0.2); Bilirubin,Total 1.7 mg/dl (0.2-1.0); Calcium 8.1 mg/dl (8.6-10.3); Creatinine Clr Calc Pharmacy 64.6 ml/min; Est GFR (African American) 94.5 ml/min; Est GFR (Non-African American) 81.6 ml/min; Potassium 3.1 mmol/L (3.5-5.1); Total Protein 5.3 gm/dl (6.0-8.3)
[2023-05-04 10:10] LABS: Magnesium 1.6 mg/dl (1.7-2.4)
[2023-05-04] MEDS: POTASSIUM CHLORIDE CRTAB 20 MEQ TABCR PO STA (10:23)
[2023-05-04] MEDS: MAGNESIUM SULFATE / D5W 1 GM/100 ML BAG IV SCH (11:42)
[2023-05-04] MEDS: POTASSIUM CHLORIDE CRTAB 20 MEQ TABCR PO SCH (13:20)
--- NOTE | 2023-05-04 14:49 | Hospitalist Progress Note ---
Date of Service May 04, 2023 Assessment & Plan (1) Bacteremia due to Pseudomonas: Plan: appreciate ID consultation they advise cefepime 2gm IV q8h thru 05/07/23 he will have these at his home, by report source - pulmonary (2) Sepsis: Plan: resolved repeat blood cx's negative 04/23 negative (3) Acute and chronic respiratory failure with hypoxia: Plan: acute components - pneumonia, pulm edema, etc. chronic - COPD, lung ca today he only needed 6 L of NC O2 with activity thus, likely can d/c home on 3 L at rest, 6 L w/ activity will repeat a formal 2-step tomorrow if d/c is likely (4) Afib: Plan: new onset started on amiodarone in the ICU remains on 200mg BID and is maintaining NSR remains on Eliquis 5mg BID perhaps a.fib has driven #5 below (5) Acute HFrEF (heart failure with reduced ejection fraction): Plan: EF 45-50% on echo this admission global hypokinesis etiology? due to #4 / tachy-arrhythmia? either way he should have cardiology follow-up for this - perhaps [facility] currently not candidate for BB due to low HRs and sometimes low BPs (6) Transaminitis: Plan: improving 2nd to meds (amiodarone, etc) vs passive congestion from #5 vs other u/s liver without focal findings cont to trend watch LFTs carefully on the amiodarone (7) Adenocarcinoma of left lung, stage 3: Plan: Metastatic adenocarcinoma in left lung, deemed not surgical candidate due to copd Started chemoradiation 3 weeks prior to admission sees Dr Roque at [facility] pancytopenia from recent chemo improving (8) Elevated troponin: Plan: Secondary to myocardial demand-ischemia in setting of sepsis and a. fib RVR (9) ABHISHEK (acute kidney injury): Plan: resolved Cr stable today (10) Pancytopenia due to antineoplastic chemotherapy: Plan: Neutropenia resolved, Platelets now improving (required platelet transfusions x2 earlier in admission), serotonin assay negative for HIT Filgrastim 480 mcg x3 daily given on admission all cell lines stable and/or improving cbc in am (11) Elevated hemoglobin A1c: Plan: HbA1C 7.4% mild T2DM will attempt diet control outside the hospital (12) Bacterial pneumonia: Plan: presumed 2nd to pseudomonas improving (13) Thrush: Plan: switch clotrimazole to nystatin hoarse voice could be laryngeal candidiasis but can't use diflucan due to QTc prolongation risk with amiodarone and with abnormal LFTs (14) Hypokalemia: Plan: Replete recheck BMP/mag am Plan hypomagnesemia - replete IV mag sulfate, repeat level am updated at bedside home tomorrow ?? Admission and Anticipated Discharge Date Admission Date: April 21, 2023 Subjective patient sitting in chair by window present at bedside states he is overall feeling better in comparison to when he first came to hospital cough/congestion all improved he continues with off/on hoarse voice did have mouth sores early in the admission - improved denies dysphagia or odynophagia after my visit I had respiratory repeat a 2-step - needs 3 L at rest, 6 L with activity tele - no a.fib, NSR Review of Systems Review of Systems: gen - no fevers or chills cv - no chest pain pulm - no dyspnea at rest GI - no abd pain Physical Exam Physical Exam: gen - NAD, sitting in chair comfortably neck - no JVD mouth - no obvious thrush plaques, occasional tongue ulceration (mild) voice - hoarse heart - RRR, s1 s2 lungs - dense b/l basilar rales, no wheeze abd - soft NT ND BS+ ext - 2-3+ edema b/l, pulses 2+ b/l psych - a/o x 3 skin - pallor Results & Data Results & Data Vital Signs (Past 12 Hours) Vital Signs Temp Pulse Pulse Resp BP BP Pulse Ox 05/04/23 09:00 05/04/23 08:00 65 05/04/23 07:18 36.8 C 81 18 105/70 95 05/04/23 03:21 36.8 C 93 H 20 128/72 93 O2 Del Method O2 Flow Rate 05/04/23 09:00 Nasal Cannula 05/04/23 08:00 05/04/23 07:18 Nasal Cannula 3 05/04/23 03:21 High Flow Nasal Cannula 3 Laboratory Results Laboratory Results - last 48 hr 05/03/23 05/03/23 05/03/23 11:25 17:09 20:28 WBC RBC Hgb Hct MCV MCH MCHC RDW Std Deviation RDW Coeff of Fany Plt Count MPV Sodium Potassium Chloride Carbon Dioxide Anion Gap BUN Creatinine Est Cr Clr Drug Dosing Est GFR ( Amer) Est GFR (Non-Af Amer) BUN/Creatinine Ratio Glucose POC Glucose 189 H 89 196 H Calcium Magnesium Total Bilirubin Direct Bilirubin AST ALT Alkaline Phosphatase Total Protein Albumin 05/04/23 05/04/23 05/04/23 04:47 08:01 12:22 WBC 4.16 L RBC 2.73 L Hgb 8.3 L Hct 25.5 L MCV 93.4 MCH 30.4 MCHC 32.5 RDW Std Deviation 52.2 H RDW Coeff of Fany 15.8 H Plt Count 108 L MPV 11.7 Sodium 137 Potassium 3.1 L Chloride 95 L Carbon Dioxide 36 H Anion Gap 6 BUN 27 H Creatinine 0.91 Est Cr Clr Drug Dosing 64.6 Est GFR ( Amer) 94.5 Est GFR (Non-Af Amer) 81.6 BUN/Creatinine Ratio 29.7 H Glucose 93 POC Glucose 101 H 110 H Calcium 8.1 L Magnesium 1.6 L Total Bilirubin 1.7 H Direct Bilirubin 0.7 H AST 74 H ALT 166 H Alkaline Phosphatase 147 H Total Protein 5.3 L Albumin 2.3 L 05/04/23 05/04/23 05/04/23 17:09 17:09 20:29 WBC RBC Hgb Hct MCV MCH MCHC RDW Std Deviation RDW Coeff of Fany Plt Count MPV Sodium Potassium Chloride Carbon Dioxide Anion Gap BUN Creatinine Est Cr Clr Drug Dosing Est GFR ( Amer) Est GFR (Non-Af Amer) BUN/Creatinine Ratio Glucose POC Glucose 61 L* 63 L* 130 H Calcium Magnesium Total Bilirubin Direct Bilirubin AST ALT Alkaline Phosphatase Total Protein Albumin PG Care Time/CCT Total # of Minutes Spent Total Time Spent with Patient: Total time spent is greater than 50% in coordination of care (as documented) at patient's floor/unit and/or counseling patient: Coding Level of Care Code 70218 SUB INP/OBS CARE 3/50MIN Diagnoses Bacteremia due to Pseudomonas R78.81; B96.5 Sepsis A41.9 Acute and chronic respiratory failure with hypoxia J96.21 Afib I48.91 Acute HFrEF (heart failure with reduced ejection fraction) I50.21 Transaminitis R74.01 Adenocarcinoma of left lung, stage 3 C34.92 Elevated troponin R79.89 ABHISHEK (acute kidney injury) N17.9 Pancytopenia due to antineoplastic chemotherapy D61.810; T45.1X5A Elevated hemoglobin A1c R73.09 Bacterial pneumonia J15.9 Thrush B37.0 Hypokalemia E87.6
[2023-05-04] MEDS: NYSTATIN SUSP 500,000 U/5 ML UDC PO SCH (17:58)
[2023-05-05 04:54] LABS: Hematocrit (blood only) 25.1 % (42.0-52.0); Hemoglobin 8.4 g/dl (14.0-18.0); Mean Corpuscular Hemoglobin 30.8 pg (25.0-34.0); Mean Corpuscular Hgb Conc 33.5 g/dL (32.0-36.0); Mean Corpuscular Volume 91.9 fL (80.0-100.0); Mean Platelet Volume 10.7 fL (9.4-12.4); Platelet Count 121 K/uL (130-400); RDW Coefficient of Variation 15.6 % (11.5-14.5); RDW Standard Deviation 51.3 fL (36.4-46.3); Red Blood Count 2.73 M/uL (4.70-6.10)
[2023-05-05 05:11] LABS: Albumin Level 2.3 gm/dl (3.4-5.0); BUN Creatinine Ratio 32.7 (10-20); Bilirubin Direct 0.6 mg/dl (0-0.2); Bilirubin,Total 1.5 mg/dl (0.2-1.0); Creatinine Clr Calc Pharmacy 58.2 ml/min; Est GFR (African American) 83.4 ml/min; Est GFR (Non-African American) 71.9 ml/min; Potassium 3.4 mmol/L (3.5-5.1); Total Protein 5.5 gm/dl (6.0-8.3)
[2023-05-05] MEDS: FUROSEMIDE 20 MG TAB PO SCH (09:03)
[2023-05-05] MEDS: POTASSIUM CHLORIDE CRTAB 20 MEQ TABCR PO STA (09:03)
--- NOTE | 2023-05-05 13:45 | Discharge Summary ---
Date of Service May 05, 2023 Admission HPI Per Admitting Provider Nilesh is a 78-year-old male with past medical history of past medical history of metastatic lung adenocarcinoma was not a good surgical candidate due to underlying COPD recently on chemo/radiation, COPD, pneumothorax postbiopsy subsequently resolved, and chronic hypoxia on 1 L oxygen baseline who presents from the ER with fever, tachycardia, and hypoxia and temperature of 103 on admission. No chest pain or chest pressure, patient has a productive cough. No history of CHF No belly pain No dysuria No chest pain, no chest pressure +SOB today, improved with breathing tx. Uses 1L o2 at home, increased to 2L this morning No history of afib or abnormal heart rhythms denies hx of ID. Hx anesurysm repair 7 years ago, stable on reassessment. Was performed at [facility] chemo 1x/week and radiation 5 day sper week started 3 weeks ago Did not get radiation today Gets chemo mondays. No port Medical History: Reviewed Medications: Reviewed. Allergic to JUAN R inhibitors (hyperkalemia) Surgical History: Reviewed Family history: Reviewed Allergies: Reviewed Social History: Former tobacco use in remission. no etoh Code Status: Full Code Discharge Exam gen - NAD, sitting in chair comfortably neck - no JVD mouth - no obvious thrush plaques, occasional tongue ulceration (mild) voice - hoarse heart - RRR, s1 s2 lungs - dense b/l basilar rales, no wheeze abd - soft NT ND BS+ ext - 2-3+ edema b/l, pulses 2+ b/l psych - a/o x 3 skin - pallor Discharge Data Allergies Allergy/AdvReac Type Severity Reaction Status Date / Time JUAN R Inhibitors AdvReac Intermediate hyperkalemi Verified 04/20/23 09:32 a Consultations 04/21/23 16:06 ED Decision to Admit Stat 04/21/23 18:11 Consult Medical Dosimetrist Routine 04/29/23 07:27 Consult Infectious Diseases Routine Ordered Studies 04/21/23 18:04 CT angio chest PE protocol Stat 04/21/23 18:12 CT abd pelvis IV con only Stat 04/24/23 09:28 US venous doppler LE BI Routine 04/29/23 09:32 US liver Urgent Diabetes Follow up Diabetes Follow-up Needed for Newly Diagnosed Diabetes Hospital Course (1) Bacteremia due to Pseudomonas: appreciate ID consultation they advise cefepime 2gm IV q8h thru 3/28/24 he will have these at his home, by report source - pulmonary (2) Sepsis: resolved repeat blood cx's negative 04/23 negative (3) Acute and chronic respiratory failure with hypoxia: acute components - pneumonia, pulm edema, etc. chronic - COPD, lung ca today he only needed 6 L of NC O2 with activity thus, likely can d/c home on 3 L at rest, 6 L w/ activity will repeat a formal 2-step tomorrow if d/c is likely (4) Afib: new onset started on amiodarone in the ICU remains on 200mg BID and is maintaining NSR remains on Eliquis 5mg BID perhaps a.fib has driven #5 below (5) Acute HFrEF (heart failure with reduced ejection fraction): EF 45-50% on echo this admission global hypokinesis etiology? due to #4 / tachy-arrhythmia? either way he should have cardiology follow-up for this - perhaps [facility] currently not candidate for BB due to low HRs and sometimes low BPs (6) Transaminitis: improving 2nd to meds (amiodarone, etc) vs passive congestion from #5 vs other u/s liver without focal findings cont to trend watch LFTs carefully on the amiodarone (7) Adenocarcinoma of left lung, stage 3: Metastatic adenocarcinoma in left lung, deemed not surgical candidate due to copd Started chemoradiation 3 weeks prior to admission sees Dr Roque at [facility] pancytopenia from recent chemo improving (8) Elevated troponin: Secondary to myocardial demand-ischemia in setting of sepsis and a. fib RVR (9) ABHISHEK (acute kidney injury): resolved Cr stable today (10) Pancytopenia due to antineoplastic chemotherapy: Neutropenia resolved, Platelets now improving (required platelet transfusions x2 earlier in admission), serotonin assay negative for HIT Filgrastim 480 mcg x3 daily given on admission all cell lines stable and/or improving cbc in am (11) Elevated hemoglobin A1c: HbA1C 7.4% mild T2DM will attempt diet control outside the hospital (12) Bacterial pneumonia: presumed 2nd to pseudomonas improving (13) Thrush: switch clotrimazole to nystatin hoarse voice could be laryngeal candidiasis but can't use diflucan due to QTc prolongation risk with amiodarone and with abnormal LFTs (14) Hypokalemia: Replete recheck BMP/mag am Plan hypomagnesemia - replete IV mag sulfate, repeat level am updated at bedside home tomorrow ?? Home Health Attestation I certify that this patient is under my care and that I, or a physicians speech pathologist assistant working with me, had a face to-face encounter that meets the home health [id number] encounter requirements with this patient. The encounter with the patient was in whole, or in part, for the following medical condition, which is the primary reason for home health care (list medical condition): IV antibiotics - Cefepine 2gm IV Q8hrs. I certify that, based on my findings, the following services are medically necessary home health services: My clinical findings support the need for the above services because: Caregiver Instruct Med Mgmt, Safety, Disease Process, Signs to Report Home Safety Assessment Hydration / Nutrition Medication Compliance and Monitoring Effective of New Medications Medication Compliance OT Assess ADL Status and Restore Function w ADLs PT Eval for Safety and Mobility PT Eval for Safety, Gait Training, Assistive Devices PT Gait and Balance Training, Strengthening and Safety Safety Skilled Nsg Instruction New Medications Skilled Nsg Assess Pt Illness, Disease and Sx Monitoring S/S to Report to Provider Teach on Disease Management and Interventions Vital Signs Weekly Labs Further, I certify that my clinical findings support that this patient is homebound (i.e. absences from home require considerable and taxing effort and are for medical reasons or scientology services or infrequently or of short duration when for other reasons) because: Transportation Assistance/Unable to Leave Home Unassisted Certification for Home Health Services: Based on the above findings, I certify that this patient is confined to the home and needs intermittent penitentiary care, physical therapy and/or speech ther apy or continues to need occupational therapy. The patient is under my care, and I have initiated the establishment of the plan of care. This patient will be followed by a physician who will periodically review the plan of care. Discharge Plan Discharge Items Patient Disposition: Home - Home Health Services Reason For Visit: SEPSIS Discharge Diagnosis: 1. Septicemia/bacteremia due to Pseudomonas infection - improving 2. Rapid atrial fibrillation - improved/resolved, back in normal rhythm 3. Mild congestive heart failure - ejection fraction 45-50% (normal 50% or higher) 4. Abnormal liver function tests - improving 5. Low white blood cells, low platelets - due to recent chemotherapy and sepsis - counts improving 6. Anemia 7. Swelling of legs - due to #3, low albumin (blood protein levels), etc. 8. COPD 9. Lung cancer 10. Thrush/mucositis of mouth - improving 11. Low potassium, low magnesium - improved 12. Diet-controlled type 2 diabetes Activity: As commented below Activity Comment: gradually increase activities as tolerated Non-emergency contact: Primary Care Provider, Veneer Clipper Helper and Oncologist Call non-emergency contact if: you have any medication questions, your symptoms worsen and you have a fever Follow-up/Referrals: Fernando Khan MD [Physician] - 05/07/23 1:45 pm Lori Epperson PA-C [Physician Safety Sealer] - 05/12/23 10:30 am (Congestive Heart Failure Program Appointment Information Early follow up is essential to managing your heart failure. An appointment has been scheduled for you with the [facility] Heart Failure Program within 7 days of discharge. Anticipate this visit to be 30-60 minutes long. Please expect a bookkeeper assistant phone call from one of our nurses approximately 48 hours from discharge. They will also be placing an order for lab work to be completed 1-2 days prior to your heart failure follow up appointment. Please be sure to have this done so we can go over the results when you come in. Office Location The cardiology office building is located in front of the hospital at [address] Bring the following with you to your follow-up doctor appointments: Please bring your daily weight log any discharge paperwork all of your medication bottles with you to this visit. ) Efrem Estevez DO [Primary Care Provider] - 05/12/23 2:00 pm Diet: Carb Consistent or DM2 and Heart Healthy Addtl Attending Provider Instructions: Mr Davis, You were hospitalized due to pseudomonas infection in the blood. This is called septicemia/bacteremia. The pseudomonas likely started in the lungs as pneumonia and then moved to the bloodstream. You were treated with IV antibiotics your entire stay. Repeat blood cultures later in the stay were negative which means that the bloodstream infection has cleared. Your stay was complicated by developing an irregular heart rhythm called atrial fibrillation ("a.fib"), shock due to the pseudomonas infection (you were in the ICU for this), low platelets, low white blood cell count, anemia, thrush in the mouth (yeast), mucositis of the mouth (sores/ulcers), and congestive heart failure. The congestive heart failure, also known as CHF, is mild and can be managed with medicines. The cause of the CHF is uncertain but perhaps related to a.fib. You are now on various heart medicines for the a.fib and CHF. Your platelet count and white count have improved while here. Your oxygen levels have gradually improved throughout your stay. We gradually weaned the oxygen down to 3 liters at rest and 6 liters with activity. Recommendations - 1. cefepime IV antibiotic - start upon return home; last dose will be the evening of 05/07/23. Your IV can be removed once the cefepime course is complete on that date. 2. for CHF and swelling/edema - * furosemide 20mg each morning starting 05/06/23; this is your "diuretic" or water pill * potassium supplement each morning starting 05/06/23 * magnesium supplement each morning starting 05/06/23 3. for a.fib - * amiodarone 200mg twice daily; Ms Epperson from the CHF clinic can manage this medicine for you * Eliquis blood thinner - 5mg twice daily; this is your blood thinner * most common side effect of ANY blood thinner is bleeding; these medicines can make you more susceptible to gastrointestinal bleeding, bleeding from the bladder, heavier bleeding if you cut your skin, heavier nosebleed if you have one, etc * the Eliquis thins the blood to prevent stroke * start the amiodarone & Eliquis TONIGHT 4. for yeast infection in mouth - * nystatin solution - 5ml four times daily x 7 days, swish and spit each time 5. if your hoarse voice does not resolve fully over the next few weeks you would need a referral to ENT to have this checked 6. HOLD your lipitor (atorvastatin) for now as your liver function tests are still a little high (improving, but still mildly high) 7. have a blood draw with Ms Epperson or the cancer center within 5-7 days; you will need a repeat CBC, BMP, liver function tests, and magnesium level 8. STOP your amlodipine blood pressure pill 9. Drink a boost or Ensure once or twice a day to increase your protein stores 10. Check your oxygen levels on your finger periodically at home with your pulse oximeter. If your oxygen levels are 88% or higher consistently these are acceptable readings. If you are consistently less than 88% please seek medical attention. 11. Dr Rice from radiation oncology stated you can report for your regularly scheduled radiation time on 05/06/23 to resume your radiation treatments 12. Dr Roque's office will be contacting you with a follow-up appointment for some time next week 13. finally, some of your blood work suggests that you may be an early type 2 diabetic. I would not recommend any medicine or treatment for this at this time. Your family doctor can monitor this over time. Please see handout provided by our prosthodontist/educator. Return to [facility] if - * you have fevers over 100 degrees * you have worsening shortness of breath * your pulse oximeter readings are consistently less than 88% * you have chest pains * you have any bleeding problems from the Eliquis * any other concerns It was our pleasure to care for you! -Dr Glynn Addtl Communication Manager Provider Instructions: Congestive heart failure instructions: Call 911 and go to the Emergency Room if: * You have tightness or pain in your chest that does not go away with rest or Nitroglycerin * You are very short of breath even with rest Call your doctor if any of the following symptoms or problems start or get worse: * Shortness of breath or difficulty breathing * Wake up at night short of breath * Chest pain * Cough * Swelling of your hands, fee, or legs * More fatigued or tired with your normal activity * Palpitations - sudden fast heart beats WEIGHT * Weigh yourself every morning after using the bathroom. Please write these numbers down each day in a notebook. * Use the same scale. * Wear the same amount of clothing. * Write your weight down on your chart. * Call the [facility] CHF clinic ([facility]) or your family doctor if you gain more than 2-3 pounds in 1-2 days. This is typically the first sign of fluid/water retention from heart failure. MEDICATIONS * Use this discharge instruction sheet for instructions. * Take your medications at the time your doctor ordered. * Do not skip a dose of your medicines. * If you miss a dose of medicine, take as soon as possible, but DO NOT DOUBLE A DOSE. * Read your medicine information when you get home. * Know all of the side effects of your medicine. * Call your doctor's office if you have any side effects. * Be sure all of your doctors know what medicine and herbs you take (including cold, flu, and herbal medicine). * Pain Medicine: If you do not get relief from your pain, please call your doctor for help. Take the following with you to your follow-up doctor appointments: * Weight Chart * Medication List * List of questions Do not drink excessive alcohol, beer or wine. Pending Studies at Discharge: No Stand-Alone Forms: My [facility] [employer], Smoking Cessation Medications and DC Order Prescriptions: New amiodarone 200 mg Tablet 200 mg PO BIDM Qty: 60 0RF Eliquis 5 mg Tablet 5 mg PO BID Qty: 60 0RF nystatin 100,000 unit/mL Suspension 5 ml PO QID 7 Days Qty: 150 0RF Rx Instructions: swish and spit magnesium oxide 400 mg (241.3 mg magnesium) Tablet 400 mg PO QAM Qty: 30 2RF potassium chloride 10 mEq tablet extended release 10 meq PO DAILY Qty: 30 0RF cefepime in dextrose 5 % 2 gram/50 mL piggyback 2 g IV Q8H 3 Days Continued prochlorperazine maleate [Compazine] 10 mg tablet 10 mg PO Q8H PRN (Reason: Nausea) Trelegy Ellipta 100-62.5-25 mcg blister with device 1 inh inhalation DAILY Qty: 60 2RF aspirin [Adult Aspirin Regimen] 81 mg tablet,delayed release (DR/EC) 81 mg PO QAM ascorbate calcium (vitamin C) 500 mg tablet 500 mg PO QAM vitamin E succinate 400 unit tablet 400 units PO QAM albuterol sulfate 90 mcg/actuation HFA aerosol inhaler 2 inh inhalation QID PRN (Reason: shortness of breath or wheezing) Qty: 8.5 1RF cholecalciferol (vitamin D3) [Vitamin D3] 50 mcg (2,000 unit) Capsule 50 mcg PO QPM ondansetron 8 mg tablet,disintegrating 8 mg PO Q8 PRN (Reason: Nausea And Vomiting) dexamethasone 4 mg tablet 4 mg PO UD Rx Instructions: as directed prior to chemotherapy Changed furosemide [Lasix] 20 mg tablet 20 mg PO QAM Qty: 30 1RF (DME) Oxygen Home E0424 Liters Per Minute See Rx Instructions .ROUTE .MEDSUPPLY Qty: 1 0RF Rx Instructions: 3 liters at rest, 6 liters with ambulation/activity Held atorvastatin [Lipitor] 20 mg tablet 20 mg PO PM 90 Days Qty: 90 3RF Hold Instructions: hold until your outpatient providers tell you it is ok to resume. Discontinued amlodipine 5 mg tablet 5 mg PO QPM Discharge Orders: Discharge Order (Routine); Ordered 05/05/23 Ordered By: Jarod Chavira/Other Patient Handouts: AFib Preventing Stroke, AFib, Type 2 Diabetes Admission Data Admit Date/Time: 04/21/23 18:11 Attending Provider: Jarod Glynn Admit Provider: Brian Morales Primary Care Provider: Efrem Estevez Other Providers: Jama Krause; Brian Morales; Jeannette Kamara; Mikala Lipscomb; Bessy Laird; Anisha Curtis; Tammie Barton; Chanelle Neal; Thiago Landers; Yue Calle; Julisa Medina; Kasi Mike Coding Diagnoses Bacteremia due to Pseudomonas R78.81; B96.5 Sepsis A41.9 Acute and chronic respiratory failure with hypoxia J96.21 Afib I48.91 Acute HFrEF (heart failure with reduced ejection fraction) I50.21 Transaminitis R74.01 Adenocarcinoma of left lung, stage 3 C34.92 Elevated troponin R79.89 ABHISHEK (acute kidney injury) N17.9 Pancytopenia due to antineoplastic chemotherapy D61.810; T45.1X5A Elevated hemoglobin A1c R73.09 Bacterial pneumonia J15.9 Thrush B37.0 Hypokalemia E87.6
== END 2023-05-05 18:31 | disposition home health service (06) | DRG 871 ==
LOC: ED 14:39 → 1E 18:11 → SUATTDRO 18:11 → 1E 20:10 → 2E 04-26 23:20 → 2W 04-30 22:33

== ENCOUNTER 2023-05-11 05:19 | Inpatient (IN) ==
[2023-05-11] MEDS: ALBUT/IPRATROP 3MG/0.5MG NEB 3 ML VIAL NEB STA (05:57)
[2023-05-11 06:10] LABS: Basophils # (auto) 0.02 K/uL (0.00-0.20); Basophils % (auto) 0.5 %; Eosinophils # (auto) 0.03 K/uL (0.00-0.50); Eosinophils % (auto) 0.7 %; Hematocrit (blood only) 24.1 % (42.0-52.0); Hemoglobin 7.6 g/dl (14.0-18.0); Immature Granulocytes # (auto) 0.08 K/uL (0.01-0.20); Immature Granulocytes % (auto) 1.9 %; Lymphocytes # (auto) 0.97 K/uL (1.20-3.40); Lymphocytes % (auto) 22.6 %; Mean Corpuscular Hemoglobin 29.6 pg (25.0-34.0); Mean Corpuscular Hgb Conc 31.5 g/dL (32.0-36.0); Mean Corpuscular Volume 93.8 fL (80.0-100.0); Mean Platelet Volume 9.9 fL (9.4-12.4); Monocytes # (auto) 1.01 K/uL (0.11-0.59); Monocytes % (auto) 23.5 %; Neutrophils # (auto) 2.18 K/uL (1.40-6.50); Neutrophils % (auto) 50.8 %; Platelet Count 230 K/uL (130-400); RDW Coefficient of Variation 15.7 % (11.5-14.5); RDW Standard Deviation 53.2 fL (36.4-46.3); Red Blood Count 2.57 M/uL (4.70-6.10); White Blood Count 4.29 K/ul (4.8-10.8)
[2023-05-11 06:17] LABS: Base Excess VBG 8.2 mEq/L; HCO3 VBG 32 mmol/L; Oxygen Saturation VBG 90.2 %; PCO2 VBG 40 mmHg (38-50); PO2 VBG 59 mmHg; pH VBG 7.51 (7.36-7.41)
[2023-05-11 06:32] LABS: Alanine Aminotransferase 88 U/L (7-52); Albumin Globulin Ratio 0.7 (0.9-2); Albumin Level 2.5 gm/dl (3.4-5.0); Alkaline Phosphatase 123 U/L (34-104); Anion Gap 7 (3-11); Aspartate Aminotransferase 43 U/L (13-39); BUN Creatinine Ratio 23.7 (10-20); Bilirubin,Total 1.4 mg/dl (0.2-1.0); Blood Urea Nitrogen 28 mg/dl (6-23); Calcium 8.6 mg/dl (8.6-10.3); Carbon Dioxide 28 mmol/L (21-32); Chloride 94 mmol/L (98-107); Est GFR (African American) 69.1 ml/min; Est GFR (Non-African American) 59.6 ml/min; Globulin 3.8 gm/dl (2.5-4.0); Glucose 114 mg/dl (70-99(Fasting)); Magnesium 1.7 mg/dl (1.7-2.4); Potassium 4.2 mmol/L (3.5-5.1); Sodium 129 mmol/L (136-145); Total Protein 6.3 gm/dl (6.0-8.3)
[2023-05-11 06:35] LABS: Troponin I High Sensitivity 8.4 pg/ml (0-20)
[2023-05-11 06:39] LABS: Dohle Bodies 1+; Polychromasia 1+; Toxic Granulation 1+
--- NOTE | 2023-05-11 06:55 | XRay Report ---
XR chest 1V portable CLINICAL HISTORY: Dyspnea. COMPARISON STUDY: Chest radiograph May 02, 2023. Chest CT April 21, 2023. FINDINGS: There is no pneumothorax or pleural effusion. Bibasilar airspace opacities persist. There i s underlying emphysema. No evidence for pulmonary edema. Cardiomediastinal silhouette is stable. IMPRESSION: 1. Persistent bibasilar opacities suggestive of pneumonia. Radiographic follow-up to ensure resolutio n is recommended. 2. No pneumothorax. ACT 112: Negative or not required by law. Electronically signed by: Ascencion Hodge M.D. 05/11/2023 6:53 AM
[2023-05-11 06:59] LABS: INR 1.1 (0.9-1.1)
[2023-05-11 07:04] LABS: Adenovirus PCR Not Detected (NotDetected); Bordetella parapertussis PCR Not Detected (NotDetected); Bordetella pertussis PCR Not Detected (NotDetected); Chlamydia pneumoniae PCR Not Detected (NotDetected); Coronavirus 229E PCR Not Detected (NotDetected); Coronavirus CoV-2 (COVID19)PCR Not Detected (NotDetected); Coronavirus HKU1 PCR Not Detected (NotDetected); Coronavirus NL63 PCR Not Detected (NotDetected); Coronavirus OC43PCR Not Detected (NotDetected); Human Metapneumovirus PCR Not Detected (NotDetected); Influenza A PCR Not Detected (NotDetected); Influenza B PCR Not Detected (NotDetected); Mycoplasma pneumoniae PCR Not Detected (NotDetected); Parainfluenza Virus 1 PCR Not Detected (NotDetected); Parainfluenza Virus 2 PCR Not Detected (NotDetected); Parainfluenza Virus 3 PCR Not Detected (NotDetected); Parainfluenza Virus 4 PCR Not Detected (NotDetected); Respiratory Syncytial VirusPCR Not Detected (NotDetected); Rhinovirus/Enterovirus PCR Not Detected (NotDetected)
[2023-05-11] MEDS: OPTIRAY 320 125ml IV ONE (07:08)
[2023-05-11] MEDS: PIPERACILLIN/TAZOBACTAM 4.5 GM/100 ML BAG IV ONE (07:27)
--- NOTE | 2023-05-11 07:52 | CT Scan Report ---
CT angio chest PE protocol CT DOSE: 656.35 mGy.cm HISTORY: 78 years-old Male with PE. Acute shortness of breath with history of lung cancer TECHNIQUE: Multiple CTA images of the chest were obtained after the intravenous administration of 112 ml Optiray. Coronal and sagittal MIPS were obtained from the axial data set and were submitted for review. All measurements were obtained according to NASCET criteria. A dose lowering technique was u tilized adhering to the principles of ALARA. COMPARISON: Radiation chest CT 05/08/2023, CT chest 04/21/2023, 01/31/2023, PET CT 01/15/2023. FINDINGS: CTA: The heart is mildly enlarged. No pericardial effusion. Moderate coronary artery calcifications. Ather osclerosis of the thoracic aorta without aneurysm or dissection. Suboptimal evaluation of the pulmona ry arterial tree secondary to respiratory motion artifact. No central pulmonary emboli are identified . CT CHEST: No dominant thyroid nodule. Borderline enlarged 10 mm subcarinal lymph node has decreased in size fro m prior. 11 mm precarinal lymph node on image 127 previously measured 1.5 cm. No new or progressive l ymphadenopathy. There is no pneumothorax, pleural effusion or overt pulmonary edema. There is severe pulmonary emphys jenni. Patchy bibasilar groundglass and consolidative opacities redemonstrated. Several the previously seen nodular foci of consolidation have improved. One of the areas of consolidation however within th e left lower lobe subpleural distribution on image 109 series 4 now demonstrates central cavitation a nd overall measures 6.3 x 4.0 x 3.7 cm. Central airways are generally patent. Left upper lobe nodules are redemonstrated, better seen on the prior PET/CT. Nonobstructing right renal calculi. Hyperdense lesion of the superior pole right kidney may represent a proteinaceous or hemorrhagic cyst. Bilateral renal cysts. Unremarkable soft tissues. No acute frac ture or destructive bone lesion. IMPRESSION: 1. No pulmonary emboli identified. 2. Severe emphysema with patchy bilateral airspace opacities redemonstrated within a bibasilar promin ent distribution suggestive of multifocal pneumonia. Interval development of a focus of cavitary pneu monia within the left lower lobe measuring up to 6.3 cm. Close follow-up is needed. 3. No pleural effusion or pneumothorax. 4. Decreased size of the mediastinal lymphadenopathy compared to the 04/21/2023 exam. 5. Redemonstration of suspicious pulmonary nodules of the left lower lobe, previously described on th e PET/CT from 01/15/2023. 6. Right nephrolithiasis. ACT 112: Negative or not required by law. The above report was generated using voice recognition software. It may contain grammatical, syntax o r spelling errors. Electronically signed by: Tacho Carlin M.D. 05/11/2023 7:49 AM
[2023-05-11] MEDS: TXA 10% Non-IV Routes 100 MG/ML VIAL NEB ONE ×2 (08:09→09:41)
[2023-05-11 08:19] LABS: Appearance Urine Clear (Clear); Bacteria Urine Automated Negative (Negative); Bilirubin Urine Negative (Negative); Blood Urine 1+ (Negative); Color Urine Yellow; Glucose Urine UA Negative (Negative); Ketones Urine Negative (Negative); Leukocyte Esterase Urine Negative (Negative); Nitrite Urine Negative (Negative); Protein Urine 2+ (Negative); RBC Urine Automated 0-4 /hpf (0-4); Specific Gravity Urine 1.019 (1.000-1.030); Urobilinogen Urine Negative (Negative); pH Urine 6.5 (4.5-7.5)
[2023-05-11] MEDS: SODIUM CHLORIDE 0.9% 500 ML IV ONE (09:22)
[2023-05-11] MEDS: SODIUM CHLORIDE 0.9% 1,000 ML IV SCH (09:22)
--- NOTE | 2023-05-11 09:39 | History & Physical Report ---
Date of Service May 11, 2023 Assessment & Plan (1) Acute and chronic respiratory failure with hypoxia: Plan: acute - 2nd to #2, possibly swallowed blood from #3, and #4 no evidence of superimposed pulmonary edema despite his LE edema and mild systolic CHF on prior echo dated 04/22/23 no evidence of PE on imaging today chronic resp failure is 2nd to COPD, lung ca, recent extensive pneumonia, etc typically on 3L NC O2 at rest, 6L NC O2 with activity he is on higher amounts of NC O2 at this time then baseline, and risk of further decompensation because of the bleeding is high care d/w Dr Khan from the ICU, and plan is to admit to ICU to airborne isola tion - see below (2) Cavitary lesion of lung: Plan: 6.3cm, LLL - NEW in comparison to previous CT chest (last CT was 04/21/23) this new lesion is highly concerning given that he just finished a prolonged course of IV cefepime 3 days ago at his home differential - lung cancer with cavitation vs bacterial vs fungal vs TB vs other plan - admit to ICU place in airborne isolation send quantiferon gold test check fungitell continue IV zosyn - defer ultimate abx selection to Dr Khan consider empiric antifungal therapy while awaiting cultures check MRSA swab, if + consider IV vanco vs zyvox follow blood cx's defer additional w/u to Dr Khan from ICU/pulmonology -- but likely needs bronchoscopy (3) Blood in mouth of unknown source: Plan: I do not think this is hematemesis He has ulceration on the hard palate in the mouth but I have low suspicion his bleeding is from such could have a lesion in the posterior pharynx, larynx (has ongoing hoarse voice), or the lower respiratory tract (the cavitary lesion) - more suspicious the source is one of these thus, the bleeding is likely hemoptysis s/p TXA nebs x 2 in the ER with improved bleeding this issue has led to acute blood loss anemia HOLD ELIQUIS HOLD ASPIRIN Tx 1 unit PRBCs cautiously Serial H/H's May need bronchoscopy to isolate source of bleeding (4) Multifocal pneumonia: Plan: had such during his prior hospitalization in 04/2023 complicated by chemo-induced pancytopenia and septic shock continues with radiographic evidence of b/l pneumonia despite recent 14-day course of IV cefepime for presumed pseudomonas now with left-sided cavitary lesion - see above cont IV zosyn defer other abx selection to ICU team follow blood cx's (5) Acute blood loss anemia: Plan: 2nd to #3 his BPs are low or low-normal cortisol level is >20 Type/cross 2 units PRBCs, transfuse 1 unit of PRBCs in light of hypotension now watch volume status closely serial CBCs (6) Chronic systolic CHF (congestive heart failure): Plan: echo 04/2023 - EF 45-50% was going to follow with [facility] [place] [facility] after recent hospitalization he has considerable LE edema on exam he had such during prior hospitalization and was diuresed during that recent stay his edema persists despite use of daily lasix at home low albumin of 2.5 is contributing to his edema as well watch volume status carefully given the PRBCs, etc. (7) PAF (paroxysmal atrial fibrillation): Plan: diagnosed with such in the ICU during prior hospitalization needed IV amiodarone during that stay with conversion to NSR discharged on Eliquis + amiodarone Eliquis now on hold due to the presumed hemoptysis/bleeding he had overnight at home cont amiodarone to maintain NSR (8) Abnormal LFTs: Plan: seen during the prior hospitalization LFTs remain mildly high but stable (9) Adenocarcinoma of left lung, stage 3: Plan: dx 01/2023 stage 3a s/p radiation along with chemotherapy last chemo - 04/20/23 - carboplatin/paclitaxel follows with Dr Ro[facility] (10) History of abdominal aortic aneurysm repair: Plan: 2016 (11) Chronic obstructive pulmonary disease: Plan: with resulting chronic hypoxic resp failure on home O2 prior heavy tobacco dependence cont home inhalers (12) DVT prophylaxis: Plan: SCDs only chemoprophylaxis contraindicated due to acute bleeding Eliquis on hold Plan pt's updated at bedside care d/w Dr Khan from the ICU team pt requests full code status prognosis is guarded in light of fragile status, new cavitary lesion, active bleeding, etc - all in the midst of lung ca History of Present Illness Chief Complaint: bleeding from mouth, coughing up blood Primary Care Provider: Efrem Estevez, DO 78yo male with history of adenocarcinoma of the left lung, COPD, chronic hypoxic respiratory failure on home O2 (3L at rest, 6L with activity), recent prolonged hospitalization at [facility] from 04/20 to 05/04 for severe pancytopenia/pseudomonas bacteremia/presumed pseudomonas pneumonia/septic shock/new-onset a.fib & cardiomyopathy, along with AAA repair in 2015 presents from home with his due to new onset bleeding from his mouth. This started about midnight last night and continued all night into this morning. The blood was coming from his mouth and was bright red in color. His reports there were clots as well and she seemed to "be pulling them out of his throat." No epistaxis anteriorly. Question of some hemoptysis as well. He denies feeling dyspneic, but he told the ER staff upon arrival that he indeed was short of breath. Since discharge on 05/04 his appetite has been poor, he has been sedentary, and he possibly had a low-grade fever of about 100 degrees yesterday afternoon. Despite compliance with lasix he has continued to have LE edema bilaterally. Last dose of Eliquis was yesterday in the evening. He completed his IV cefepime (was sent home from the hospital on such) on , 05/07/23. While evaluating him he states "I think the bleeding stopped." The ER attending had previously given him 2 TXA neb treatments along with a duoneb and 1 dose of IV zosyn. Allergies Allergy/AdvReac Type Severity Reaction Status Date / Time JUAN R Inhibitors AdvReac Intermediate hyperkalemi Verified 05/11/23 09:37 a Home Medications Medication Instructions Recorded Confirmed Type ascorbate calcium (vitamin C) 500 500 mg PO QAM 09/23/18 05/11/23 History mg tablet aspirin 81 mg tablet,delayed 81 mg PO QAM 09/23/18 05/11/23 History release (Adult Aspirin Regimen) vitamin E succinate 268 mg (400 400 units PO QAM 11/30/18 05/11/23 History unit) tablet albuterol sulfate 90 mcg/actuation 2 inh inhalation QID PRN shortness 12/19/20 05/11/23 Rx aerosol inhaler of breath or wheezing #8.5 grams atorvastatin 20 mg tablet (Lipitor) 20 mg PO PM 90 days #90 tabs 06/24/22 05/11/23 Rx cholecalciferol (vitamin D3) 50 50 mcg PO QPM 01/20/23 05/11/23 History mcg (2,000 unit) capsule (Vitamin D3) prochlorperazine maleate 10 mg 10 mg PO Q8H PRN Nausea 03/18/23 05/11/23 History tablet (Compazine) fluticasone fur. 100 mcg-umeclid 1 inh inhalation DAILY #60 ea 03/31/23 05/11/23 Rx 62.5 mcg-vilant 25 mcg inhalat.powder (Trelegy Ellipta) dexamethasone 4 mg tablet 4 mg PO UD 04/21/23 05/11/23 History ondansetron 8 mg disintegrating 8 mg PO Q8 PRN Nausea And Vomiting 04/21/23 05/11/23 History tablet amiodarone 200 mg tablet 200 mg PO BIDM #60 tabs 05/01/23 05/11/23 Rx apixaban 5 mg tablet (Eliquis) 5 mg PO BID #60 tabs 05/01/23 05/11/23 Rx Oxygen Home E0424 #1 L 05/05/23 05/07/23 Rx furosemide 20 mg tablet (Lasix) 20 mg PO QAM #30 tabs 05/05/23 05/11/23 Rx magnesium oxide 400 mg (241.3 mg 400 mg PO QAM #30 tabs 05/05/23 05/11/23 Rx magnesium) tablet potassium chloride 10 mEq 10 meq PO DAILY #30 tabs 05/05/23 05/11/23 Rx tablet,extended release nystatin 100,000 unit/mL oral 5 ml PO QID 7 days #140 mL 05/07/23 05/11/23 Rx suspension Past Med/Surg History Medical History Diarrhea Multifocal pneumonia Chronic diastolic heart failure Chronic obstructive pulmonary disease Lower extremity edema BPH (benign prostatic hyperplasia) Hyperlipidemia Lung cancer Abdominal aortic aneurysm s/p repair 2015 Multiple pulmonary nodules determined by computed tomography of lung BPH (benign prostatic hyperplasia) Kidney stones hx PVC (premature ventricular contraction) on occasion Hypertension Diverticulosis Hyperlipemia COPD (chronic obstructive pulmonary disease) well controlled per pt > no res inh use Surgical History History of aortic aneurysm repair endovascular > [facility] [place] > 2016 > follows with [facility] cardiology. Has to go for scan on 02/06/23 to check for "leak around the stent" as evidence of size increase per recent ultrasound Replaced by [facility]. History of cataract surgery bilat History of tooth extraction dental implants History of lithotripsy History of inguinal hernia repair left x 1, right x 2. H/O colonoscopy 07/2020 repeat 5 years Family History Father Colon cancer Colorectal cancer Family/Other Heart disease Hypertension Mother Stroke Denies family history of Ovarian cancer Prostate cancer Myocardial infarction Breast cancer Social History Smoking Status: Former smoker Tobacco Type: Cigarettes Age Started Using Tobacco: 32; packs per day: 0.5; Cigarettes Per Day: 10 cigs per day; Second Hand Exposure: No; Do You Dip or Chew Tobacco: No; Hx Alcohol Use: No Hx Substance Use: No Preferred Language: Dominican Communication Ability: Effective Visual Impairment: Limited Hearing Ability: Normal Music Manager Required: No Beliefs That Will Affect Care: None marital status: Current Living Situation: Spouse Current Living Situation Comment: lives with current occupational status: 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 How many Children do You have: 1 Feels Safe at Home: Yes Childhood Exposure to Second-Hand Smoke: No caffeine: Yes Dental Care, Regularly: Yes Physical Activity Frequency: Does not Exercise Seatbelt Use: always Sunscreen Use: Yes Assistive Devices: Oxygen - Continuous Review of Systems Review of Systems: gen - poor appetite, low-grade fever yesterday, fatigued and weak HENT - oral cavity bleeding (vs laryngeal or pharyngeal), severe nasal congestion L nostril, no ear pain eyes - no complaints CV - no chest pain, no pleuritic pain, no palpitations; ongoing edema pulm - cough, congestion, ?hemoptysis; no dyspnea at rest but has baseline MO GI - denies melena or BRBPR; had diarrhea last week, resolved with loperamide; no abd pain or nausea/emesis - no LUTS musculo - denies joint pains neuro - right 5th finger numbness for several weeks, otherwise no focal motor weakness endo - no diabetes skin - no generalized rash Physical Exam Physical Exam: gen - pale, weak-appearing, looks chronically ill, no distress eyes - PERRL HENT - TMs clear b/l, nose - significant dried mucous L>R but no blood; oral cavity - palate with ulceration and a small amount of old/dried blood; tip of tongue with an ulceration; no active bleeding; MM a little dry; voice is hoarse neck - no JVD, no masses, no lymph nodes heart - RRR, s1 s2, no murmur lungs - b/l basilar rales with course BS b/l, no increased work of breathing abd - soft NT ND BS+ ext - 2-3+ pitting edema b/l, pulses 2+ b/l feet skin - generalized pallor; no rash; dried blood on right side of face neuro - strength 5/5 x 4 exts; DTRs 2+ b/l upper and lower extremities psych - a/o x 3 Results & Data Results & Data Vital Signs (Past 12 Hours) Vital Signs Temp Pulse Pulse Resp BP BP Pulse Ox 05/11/23 09:00 86/55 L 05/11/23 09:00 72 20 86/55 L 95 05/11/23 08:30 81 20 94/56 L 91 05/11/23 08:00 90 18 96/62 L 91 05/11/23 08:00 85 15 96/62 L 96 05/11/23 07:45 82 13 97/58 L 91 05/11/23 07:30 77 16 102/56 L 95 05/11/23 06:57 78 15 96/56 L 94 05/11/23 06:15 76 18 113/61 96 05/11/23 05:56 72 05/11/23 05:27 74 18 95 05/11/23 05:27 74 18 100/57 L 97 05/11/23 05:25 36.7 C 91 H 17 97/65 L 92 O2 Del Method O2 Flow Rate 05/11/23 09:00 05/11/23 09:00 Nasal Cannula 5 05/11/23 08:30 Nasal Cannula 5 05/11/23 08:00 Nasal Cannula 5 05/11/23 08:00 Nasal Cannula 5 05/11/23 07:45 Nasal Cannula 5 05/11/23 07:30 Nasal Cannula 5 05/11/23 06:57 Nasal Cannula 5 05/11/23 06:15 Nasal Cannula 5 05/11/23 05:56 04/01/24 05:27 Nasal Cannula 6 05/11/23 05:27 Nasal Cannula 6 05/11/23 05:25 Nasal Cannula 6 Laboratory Results Laboratory Results - last 24 hr 05/11/23 05/11/23 05/11/23 05:45 06:02 06:38 WBC 4.29 L RBC 2.57 L Hgb 7.6 L Hct 24.1 L MCV 93.8 MCH 29.6 MCHC 31.5 L RDW Std Deviation 53.2 H RDW Coeff of Fany 15.7 H Plt Count 230 MPV 9.9 Immature Gran % (Auto) 1.9 Neut % (Auto) 50.8 Lymph % (Auto) 22.6 [place] % (Auto) 23.5 Eos % (Auto) 0.7 Baso % (Auto) 0.5 Neut # (Auto) 2.18 Lymph # (Auto) 0.97 L [place] # (Auto) 1.01 H Eos # (Auto) 0.03 Baso # (Auto) 0.02 Immature Gran # (Auto) 0.08 Toxic Granulation 1+ Dohle Bodies 1+ Polychromasia 1+ PT 12.0 INR 1.1 VBG pH 7.51 H VBG pCO2 40 VBG pO2 59 VBG HCO3 32 VBG O2 Saturation 90.2 VBG Base Excess 8.2 Sodium 129 L Potassium 4.2 Chloride 94 L Carbon Dioxide 28 Anion Gap 7 BUN 28 H Creatinine 1.18 Est Cr Clr Drug Dosing Not Reportable Est GFR ( Amer) 69.1 Est GFR (Non-Af Amer) 59.6 BUN/Creatinine Ratio 23.7 H Glucose 114 H Lactate 1.4 Calcium 8.6 Magnesium 1.7 Total Bilirubin 1.4 H AST 43 H ALT 88 H Alkaline Phosphatase 123 H Troponin I High Sens 8.4 B-Natriuretic Peptide 93 Total Protein 6.3 Albumin 2.5 L Globulin 3.8 Albumin/Globulin Ratio 0.7 L Procalcitonin 0.31 Random Cortisol 27.22 Urine Color Urine Appearance Urine pH Ur Specific [place] Urine Protein Urine Glucose (UA) Urine Ketones Urine Blood Urine Nitrite Urine Bilirubin Urine Urobilinogen Ur Leukocyte Esterase Urine WBC (Auto) Urine RBC (Auto) U Hyaline Cast (Auto) U Epithel Cells (Auto) Urine Bacteria (Auto) Adenovirus (PCR) Not Detected B. pertussis DNA (PCR) Not Detected B.parapertussis DNA PCR Not Detected C. pneumoniae DNA (PCR) Not Detected Coronavirus OC43 (PCR) Not Detected Coronavirus HKU1 (PCR) Not Detected Coronavirus 229E (PCR) Not Detected SARS-CoV-2 (PCR) Not Detected Coronavirus NL63 (PCR) Not Detected Human Metapneumovir PCR Not Detected Influenza Type A (PCR) Not Detected Influenza Type B (PCR) Not Detected M. pneumoniae (PCR) Not Detected Parainfluenza 1 (PCR) Not Detected Parainfluenza 2 (PCR) Not Detected Parainfluenza 3 (PCR) Not Detected Parainfluenza 4 (PCR) Not Detected RSV (PCR) Not Detected Entero/Rhino (PCR) Not Detected Blood Type A Positive Antibody Screen NEGATIVE Crossmatch See Detail 05/11/23 08:00 WBC RBC Hgb Hct MCV MCH MCHC RDW Std Deviation RDW Coeff of Fany Plt Count MPV Immature Gran % (Auto) Neut % (Auto) Lymph % (Auto) [place] % (Auto) Eos % (Auto) Baso % (Auto) Neut # (Auto) Lymph # (Auto) [place] # (Auto) Eos # (Auto) Baso # (Auto) Immature Gran # (Auto) Toxic Granulation Dohle Bodies Polychromasia PT INR VBG pH VBG pCO2 VBG pO2 VBG HCO3 VBG O2 Saturation VBG Base Excess Sodium Potassium Chloride Carbon Dioxide Anion Gap BUN Creatinine Est Cr Clr Drug Dosing Est GFR ( Amer) Est GFR (Non-Af Amer) BUN/Creatinine Ratio Glucose Lactate Calcium Magnesium Total Bilirubin AST ALT Alkaline Phosphatase Troponin I High Sens B-Natriuretic Peptide Total Protein Albumin Globulin Albumin/Globulin Ratio Procalcitonin Random Cortisol Urine Color Yellow Urine Appearance Clear Urine pH 6.5 Ur Specific [place] 1.019 Urine Protein 2+ H Urine Glucose (UA) Negative Urine Ketones Negative Urine Blood 1+ H Urine Nitrite Negative Urine Bilirubin Negative Urine Urobilinogen Negative Ur Leukocyte Esterase Negative Urine WBC (Auto) 1-5 Urine RBC (Auto) 0-4 U Hyaline Cast (Auto) 1-5 U Epithel Cells (Auto) 10-20 H Urine Bacteria (Auto) Negative Adenovirus (PCR) B. pertussis DNA (PCR) B.parapertussis DNA PCR C. pneumoniae DNA (PCR) Coronavirus OC43 (PCR) Coronavirus HKU1 (PCR) Coronavirus 229E (PCR) SARS-CoV-2 (PCR) Coronavirus NL63 (PCR) Human Metapneumovir PCR Influenza Type A (PCR) Influenza Type B (PCR) M. pneumoniae (PCR) Parainfluenza 1 (PCR) Parainfluenza 2 (PCR) Parainfluenza 3 (PCR) Parainfluenza 4 (PCR) RSV (PCR) Entero/Rhino (PCR) Blood Type Antibody Screen Crossmatch Diagnostic Findings Chest X-Ray 05/11/23 05:23 XR chest 1V portable CLINICAL HISTORY: Dyspnea. COMPARISON STUDY: Chest radiograph May 02, 2023. Chest CT April 21, 2023. FINDINGS: There is no pneumothorax or pleural effusion. Bibasilar airspace opacities persist. There is underlying emphysema. No evidence for pulmonary edema. Cardiomediastinal silhouette is stable. IMPRESSION: 1. Persistent bibasilar opacities suggestive of pneumonia. Radiographic follow- up to ensure resolution is recommended. 2. No pneumothorax. ACT 112: Negative or not required by law. Electronically signed by: Ascencion Hodge M.D. 05/11/2023 6:53 AM Chest CTA 05/11/23 05:28 CT angio chest PE protocol CT DOSE: 656.35 mGy.cm HISTORY: 78 years-old Male with PE. Acute shortness of breath with history of lung cancer TECHNIQUE: Multiple CTA images of the chest were obtained after the intravenous administration of 112 ml Optiray. Coronal and sagittal MIPS were obtained from the axial data set and were submitted for review. All measurements were obtained according to NASCET criteria. A dose lowering technique was utilized adhering to the principles of ALARA. COMPARISON: Radiation chest CT 05/08/2023, CT chest 04/21/2023, 01/31/2023, PET CT 01/15/2023. FINDINGS: CTA: The heart is mildly enlarged. No pericardial effusion. Moderate coronary artery calcifications. Atherosclerosis of the thoracic aorta without aneurysm or dissection. Suboptimal evaluation of the pulmonary arterial tree secondary to respiratory motion artifact. No central pulmonary emboli are identified. CT CHEST: No dominant thyroid nodule. Borderline enlarged 10 mm subcarinal lymph node has decreased in size from prior. 11 mm precarinal lymph node on image 127 previously measured 1.5 cm. No new or progressive lymphadenopathy. There is no pneumothorax, pleural effusion or overt pulmonary edema. There is severe pulmonary emphysema. Patchy bibasilar groundglass and consolidative opacities redemonstrated. Several the previously seen nodular foci of consolidation have improved. One of the areas of consolidation however within the left lower lobe subpleural distribution on image 109 series 4 now demonstrates central cavitation and overall measures 6.3 x 4.0 x 3.7 cm. Central airways are generally patent. Left upper lobe nodules are redemonstrated, better seen on the prior PET/CT. Nonobstructing right renal calculi. Hyperdense lesion of the superior pole right kidney may represent a proteinaceous or hemorrhagic cyst. Bilateral renal cysts. Unremarkable soft tissues. No acute fracture or destructive bone lesion. IMPRESSION: 1. No pulmonary emboli identified. 2. Severe emphysema with patchy bilateral airspace opacities redemonstrated within a bibasilar prominent distribution suggestive of multifocal pneumonia. Interval development of a focus of cavitary pneumonia within the left lower lobe measuring up to 6.3 cm. Close follow-up is needed. 3. No pleural effusion or pneumothorax. 4. Decreased size of the mediastinal lymphadenopathy compared to the 04/21/2023 exam. 5. Redemonstration of suspicious pulmonary nodules of the left lower lobe, previously described on the PET/CT from 01/15/2023. 6. Right nephrolithiasis. ACT 112: Negative or not required by law. The above report was generated using voice recognition software. It may contain grammatical, syntax or spelling errors. Electronically signed by: Tacho Carlin M.D. 05/11/2023 7:49 AM EKG - my reading - NSR, no ST changes Code Status & VTE Plan Code Status full code Critical Care Time Critical Care Time: Yes Total Critical Care Time: 60 PG Care Time/CCT Total # of Minutes Spent Total Time Spent with Patient: Total time spent is greater than 50% in coordination of care (as documented) at patient's floor/unit and/or counseling patient: Critical Care Time: Yes Total Critical Care Time: 60 Coding Level of Care Code None Diagnoses Acute and chronic respiratory failure with hypoxia J96.21 Cavitary lesion of lung J98.4 Blood in mouth of unknown source K13.79 Multifocal pneumonia J18.9 Acute blood loss anemia D62 Chronic systolic CHF (congestive heart failure) I50.22 PAF (paroxysmal atrial fibrillation) I48.0 Abnormal LFTs R79.89 Adenocarcinoma of left lung, stage 3 C34.92 History of abdominal aortic aneurysm repair Z98.890 Centrilobular emphysema J43.2 COPD type: emphysema Emphysema type: centrilobular DVT prophylaxis Z29.9 Additional Codes Critical Care Time - Critical Care Time: Yes ([id number]) Time Spent (min) 60 (11) 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
[2023-05-11] MEDS ORDERED: SODIUM CHLORIDE 0.9% 250 ML IV PRN (10:59)
--- NOTE | 2023-05-11 12:37 | Critical Care Progress Note ---
Date of Service May 11, 2023 Assessment & Plan (1) PAF (paroxysmal atrial fibrillation): (2) Chronic systolic CHF (congestive heart failure): (3) Acute blood loss anemia: (4) Cavitary lesion of lung: (5) Acute HFrEF (heart failure with reduced ejection fraction): (6) Chronic obstructive pulmonary disease: Plan .Assessment: 78yo male who presented with hemoptysis, admitted to the ICU for close monitoring. Critical care indication: hemoptysis, acute blood loss anemia Plan: Neurologic CAM ICU negative Sedation: none Analgesia: none Cardiac BP stable at this time HFrEF - echo 04/2023 EF 45-50%; Grade 2 diastolic dysfunction A fib - eliquis held, cont amiodarone 200mg daily Respiratory COPD: continue home inhalers, albuterol PRN Maintaining adequate oxygen saturation on 2L nasal cannula Zosyn and vancomycin ID consulted consider bronchoscopy Gastrointestinal Diet: NPO Renal/electrolytes No significant electrolyte derangement at this time Replete electrolytes as needed Genitourinary No concerns at this time Strict I/O's Endocrine BSG stable Hematologic Hgb 7.6 Typed and crossed, plan to transfuse 2U PRBCs Follow daily CBC Blood type: A+ Infectious disease Afebrile since admission New LLL lesion cont vanc/zosyn ID consult pt with immunocompromise, mycoplasma or fungal pathogen cannnot be ruled out galactomannin, B glucan, aspergillus antigen, quantiferon ordered Integumentary No concerns at this time Lines/access 2 PIVs intact Prophylaxis DVT ppx: SCDs FENGI: NPO Code status: Full DVT prophylaxis: SCDs Isolation: Airborne Disposition: ICU Thank you the opportunity to participate in this patient's care. Please see attending documentation for further recommendations. Admission and Anticipated Discharge Date Admission Date: May 11, 2023 Supervising Physician Co-Signing Physician Notes Patient seen and examined with resident physician. Agree with the assessment and plan aside for any additions/exceptions noted:. Patient with acute onset hemoptysis presenting to the ER. Found to have a large cavitary lesion in the left lower lobe on CT chest. Concern for possible secondary infection related to immunosuppressed state. Patient unstable for bronchoscopy at this time due to escalating oxygen requirements. Will start with empiric antibiotics and consult ID regarding potential antifungal therapy. Send Fungitell and Aspergillus galactomannan. Monitor in the ICU for the time being with possible downgrade tomorrow. Patient is status post blood transfusion with appropriate improvement in hemoglobin. Constitutional: Thin appearing male who appears pale and a bit frail. Eyes: Pupils are equal round and reactive to light. Conjunctivae are normal. Anicteric sclera. Ears nose, mouth and throat: Mallampati class 1. Normal posterior oropharynx. Uvula is midline. Old blood noted in the oropharynx Neck: Trachea is midline. Visual inspection is normal. Respiratory: Rhonchi noted in the left lower lobe. Cardiovascular: Regular rate and rhythm. No murmurs. No edema. Gastrointestinal: Normal bowel sounds, soft, nontender and nondistended. No hepatosplenomegaly noted. Musculoskeletal: No cyanosis. Patient is able to move all extremities. Strength is 5 out of 5 in the upper and lower extremities. Skin: No rashes, warm dry and intact. Neurologic: No obvious focal neurological deficits seen. Psychiatric: Alert and oriented x3 with a euthymic affect. Subjective 78 yo male PMHx stage 3b adenocarcinoma of the lung, COPD, HFrEF, a fib recently hosptialized (discharge 05/05/23) with multifocal pneumonia and pseudomonas bacteremia. Now presenting and admitted for 1 day history of gross hemoptysis with weakness and fatigue. Until yesterday, pt with usual level of chronic cough and occasionally blood streaked sputum. Developed large volume hemoptysis intermittently passing golf ball sized clots. Otherwise, denies SOB, CP, N/V/D, new LE swelling. ED Course: Rec'd 500mL bolus NSS Tranexamic acid nebulized x2 1 dose zosyn CTA: new LLL cavitary lesion Review of Systems Review of Systems: reviewed, per HPI Physical Exam Physical Exam: Constitutional: chronically ill appearing, NAD HEENT: NCAT, scab in L nare, juve, fresh blood in mouth/soft palate CV: regular rhythm, no murmur appreciated, extremities well-perfused, 2+ pitting edema bilaterally Resp: globally decreased breath sounds, no wheeze GI: soft, nondistended, nontender, BS normoactive MSK: no gross deformities appreciated Skin: warm, dry, no rash appreciated Neuro: alert, oriented, no focal neurologic deficit appreciated Results & Data Results & Data Vital Signs (Past 12 Hours) Vital Signs Temp Pulse Pulse Resp BP BP Pulse Ox 05/11/23 12:00 36.9 C 80 15 109/63 95 04/01/24 11:45 76 15 100/61 97 05/11/23 11:45 36.7 C 75 18 100/61 96 05/11/23 11:31 80 19 101/62 94 05/11/23 11:30 36.9 C 80 19 98/60 L 94 05/11/23 11:28 75 05/11/23 11:20 75 21 97 05/11/23 11:10 73 16 96 05/11/23 11:00 71 16 96 05/11/23 10:00 79 17 98/60 L 100 05/11/23 09:30 73 14 105/59 L 95 05/11/23 09:01 79 15 101/58 L 92 05/11/23 09:00 86/55 L 05/11/23 09:00 72 20 86/55 L 95 05/11/23 08:30 81 20 94/56 L 91 05/11/23 08:00 90 18 96/62 L 91 05/11/23 08:00 85 15 96/62 L 96 05/11/23 07:45 82 13 97/58 L 91 05/11/23 07:30 77 16 102/56 L 95 05/11/23 06:57 78 15 96/56 L 94 05/11/23 06:15 76 18 113/61 96 05/11/23 05:56 72 05/11/23 05:27 74 18 95 05/11/23 05:27 74 18 100/57 L 97 05/11/23 05:25 36.7 C 91 H 17 97/65 L 92 O2 Del Method O2 Flow Rate 05/11/23 12:00 5 05/11/23 11:45 Nasal Cannula 05/11/23 11:45 6 05/11/23 11:31 Nasal Cannula 5 05/11/23 11:30 5 05/11/23 11:28 05/11/23 11:20 05/11/23 11:10 05/11/23 11:00 05/11/23 10:00 05/11/23 09:30 Nasal Cannula 5 05/11/23 09:01 Nasal Cannula 5 05/11/23 09:00 05/11/23 09:00 Nasal Cannula 5 05/11/23 08:30 Nasal Cannula 5 05/11/23 08:00 Nasal Cannula 5 05/11/23 08:00 Nasal Cannula 5 05/11/23 07:45 Nasal Cannula 5 05/11/23 07:30 Nasal Cannula 5 05/11/23 06:57 Nasal Cannula 5 05/11/23 06:15 Nasal Cannula 5 05/11/23 05:56 05/11/23 05:27 Nasal Cannula 6 05/11/23 05:27 Nasal Cannula 6 05/11/23 05:25 Nasal Cannula 6 Resident Activity Tracking Resident Involvement: Resident Care Provided Care Provided: Adult Hospital Medicine (6) 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
--- NOTE | 2023-05-11 12:50 | Billing Data ---
Date of Service May 11, 2023 Coding Level of Care Code 01906 INT INP/OBS CARE
[2023-05-11] MEDS ORDERED: VANCOMYCIN HCL 1,000 MG in SODIUM CHLORIDE 0.9% 250 ML IV SCH (12:58)
[2023-05-11] MEDS ORDERED: VANCOMYCIN CONSULT ACTIVE PRN (12:58)
[2023-05-11] MEDS: VANCOMYCIN HCL 1,500 MG in SODIUM CHLORIDE 0.9% 500 ML IV ONE (13:24)
[2023-05-11] MEDS: ICU Protocol for HYPERglycemia SCH ×2 (13:31→17:51)
[2023-05-11] MEDS ORDERED: Nursing to Pharmacy Communication SCH ×2 (13:45→17:00)
--- NOTE | 2023-05-11 14:35 | Pharmacy Report ---
Pharmacy PK ABX Note - Date of Service May 11, 2023 - Assessment and Plan Assessment * 78 year old M receiving VANCOMYCIN + ZOSYN for treatment of new cavitary lung lession. * Patient was recently hospitalized, and treated with cefepime for ps aeruginosa bacteremia/pneumonia. * Patient has been undergoing chemotherapy/radiation for lung CA * Pertinent microbiologic data includes: MRSA Nasal Swab has been ordered, results pending, resp BioFire negative, BLCXs x 4 ordered, procal 0.31, LA 1.4 Plan Vancomycin * Loading dose: 1500 mg IV x 1 * Maintenance dose: 1250 mg IV every 24 hours - starting at 0200 tomorrow * Regimen is predicted to achieve target AUC/DORITA of 400-600 mg/L.hr * Will refrain from ordering level at this time, but will do so if therapy anticipated to exceed 48 hours. Pharmacy will continue to follow and will adjust dose/frequency as necessary. Thank you. Pharmacy has transitioned to AUC monitoring for vancomycin. AUC/DORITA is the preferred PK/PD target and is associated with decreased risk of nephrotoxicity compared to traditional trough targets.
[2023-05-11] MEDS: PIPERACILLIN/TAZOBACTAM 4.5 GM in DEXTROSE 5% MINI-B 100 ML IV SCH (16:29)
[2023-05-11] MEDS: AMIODARONE 200 MG TAB PO SCH (16:30)
--- NOTE | 2023-05-11 20:34 | Emergency Department Note ---
Impression & Plan Bilateral pneumonia, Adenocarcinoma of left lung, stage 3, Bleeding from mouth, Chronic anticoagulation ED Provider Note CHIEF COMPLAINT: Shortness of breath, blood in the mouth HISTORY OF PRESENT ILLNESS: This 78-year-old male patient with past medical history of lung cancer, paroxysmal atrial fib, congestive heart failure presents to the emergency department with c/o blood from nose and mouth, SOB. Patient states he has had a little bit of a cough, but is not coughing up blood necessarily. He was recently hospitalized and discharged 05/04 due to Pseudomonas bacteremia and pneumonia. He was sent home on IV cefepime which was discontinued on 05/06. Patient went into atrial fibrillation while in the hospital and subsequently started Eliquis. He has noted to also be taking aspirin. The patient does have a history of pancytopenia due to his chemotherapy, which is currently on hold. Patient's mentions that he was seemingly improving on the cefepime, but once the cefepime was completed, he seemed to have a more difficult time breathing. He denies any vomiting of blood, blood from the rectum or significant fevers. REVIEW OF SYSTEMS: A review of systems was performed with positives and pertinent negatives listed in the history of present illness. 10 systems were reviewed and are otherwise negative. ALLERGIES: see below MEDICATIONS: see below PMH: see below SOCIAL HISTORY: see below DDx: Acute blood loss anemia, thrombocytopenia, anticoagulation effect, pulmonary hemorrhage, worsening pneumonia, PE among others. PHYSICAL EXAM: Vital signs reviewed. General: Elderly, chronically ill appearing 78 yo male, in no significant distress. HEENT: No scleral icterus, PERRLA, neck supple. BRB in mouth ? teeth as source, not seemingly running down posterior oropharynx. Clot noted in R nare. Cardiovascular: Regular rate and rhythm, no extra sounds. Pulmonary: Coarse breath sounds auscultation bilaterally, increased work of breathing. Abdomen: Soft, nontender, nondistended, positive bowel sounds. Musculoskeletal: Atraumatic, no peripheral edema. Neurologic: Patient awake alert and oriented x 3, speech is clear Skin: Warm, dry, no rash EMERGENCY DEPARTMENT COURSE/MDM: This patient was evaluated and appeared to be in no significant distress. IV access was obtained and laboratory work was drawn. 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 Patient's oxygen saturations remained stable while on nasal cannula oxygen at 6 L. Patient was placed on a humidified oxygen supply via OxyMask. He was given 2 separate [address]. [address] imaging of the chest was performed and reveals bilateral pulmonary infiltrates with evidence of severe emphysema pulmonary nodules and a new cavitary lesion in the left upper lobe. Blood cultures were obtained, patient's lactate is less than 2, procalcitonin is normal. He did have some hypotension noted. He was given 500 cc of IV normal saline solution bolus with a maintenance rate of 125 mL/h. IV Zosyn was administered as the patient had recently completed a course of IV cefepime and it does appear to be ill once again. Hemoglobin has dropped slightly to 7.6. The patient's case was discussed with the hospitalist service to evaluate the patient for admission and further management. Patient and his are aware of the plan and agreed. MONITORING: An order for cardiac monitoring was placed and the patient is noted to be in a normal sinus rhythm at 66 beats per minute. RADIOLOGY: CXR to my interpretation reveals bilateral pulmonary infiltrates. CT scan of the chest per radiology: IMPRESSION: 1. No pulmonary emboli identified. 2. Severe emphysema with patchy bilateral airspace opacities redemonstrated within a bibasilar prominent distribution suggestive of multifocal pneumonia. Interval development of a focus of cavitary pneumonia within the left lower lobe measuring up to 6.3 cm. Close follow-up is needed. 3. No pleural effusion or pneumothorax. 4. Decreased size of the mediastinal lymphadenopathy compared to the 04/21/2023 exam. 5. Redemonstration of suspicious pulmonary nodules of the left lower lobe, previously described on the PET/CT from 01/15/2023. 6. Right nephrolithiasis. EKG:to my interpretation reveals a NSR at 74 bpm, PVC, normal ST segments. QTc 437. When compared to previous dated April 21, 2023, atrial fibrillation has been replaced by normal sinus rhythm. DISPOSITION: Admission Past Med/Surg History Medical History Diarrhea Multifocal pneumonia Chronic diastolic heart failure Chronic obstructive pulmonary disease Lower extremity edema BPH (benign prostatic hyperplasia) Hyperlipidemia Lung cancer Abdominal aortic aneurysm s/p repair 2015 Multiple pulmonary nodules determined by computed tomography of lung BPH (benign prostatic hyperplasia) Kidney stones hx PVC (premature ventricular contraction) on occasion Hypertension Diverticulosis Hyperlipemia COPD (chronic obstructive pulmonary disease) well controlled per pt > no res inh use Surgical History History of aortic aneurysm repair endovascular > [facility] > 2016 > follows with [facility] cardiology. Has to go for scan on 02/06/23 to check for "leak around the stent" as evidence of size increase per recent ultrasound [facility]. History of cataract surgery bilat History of tooth extraction dental implants History of lithotripsy History of inguinal hernia repair left x 1, right x 2. H/O colonoscopy 07/2020 repeat 5 years Family History Father Colon cancer Colorectal cancer Family/Other Heart disease Hypertension Mother Stroke Denies family history of Ovarian cancer Prostate cancer Myocardial infarction Breast cancer Social History Smoking Status: Former smoker Tobacco Type: Cigarettes Age Started Using Tobacco: 32; packs per day: 0.5; Cigarettes Per Day: 10 cigs per day; Second Hand Exposure: No; Do You Dip or Chew Tobacco: No; Hx Alcohol Use: No Hx Substance Use: No Preferred Language: Cymro Communication Ability: Effective Visual Impairment: Limited Hearing Ability: Normal 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 Beliefs That Will Affect Care: None marital status: Current Living Situation: Spouse Current Living Situation Comment: lives with current occupational status: 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 How many Children do You have: 1 Feels Safe at Home: Yes Childhood Exposure to Second-Hand Smoke: No caffeine: Yes Dental Care, Regularly: Yes Physical Activity Frequency: Does not Exercise Seatbelt Use: always Sunscreen Use: Yes Assistive Devices: Oxygen - Continuous Allergies Allergies Allergy/AdvReac Type Severity Reaction Status Date / Time JUAN R Inhibitors AdvReac Intermediate hyperkalemi Verified 05/11/23 09:37 a Home Meds Home Medications Medication Instructions Recorded Confirmed ascorbate calcium (vitamin C) 500 500 mg PO QAM 09/23/18 05/11/23 mg tablet aspirin 81 mg tablet,delayed 81 mg PO QAM 09/23/18 05/11/23 release (Adult Aspirin Regimen) vitamin E succinate 268 mg (400 400 units PO QAM 11/30/18 05/11/23 unit) tablet cholecalciferol (vitamin D3) 50 50 mcg PO QPM 01/20/23 05/11/23 mcg (2,000 unit) capsule (Vitamin D3) prochlorperazine maleate 10 mg 10 mg PO Q8H PRN Nausea 03/18/23 05/11/23 tablet (Compazine) dexamethasone 4 mg tablet 4 mg PO UD 04/21/23 05/11/23 ondansetron 8 mg disintegrating 8 mg PO Q8 PRN Nausea And Vomiting 04/21/23 05/11/23 tablet Previous Rx's Medication Instructions Recorded albuterol sulfate 90 mcg/actuation 2 inh inhalation QID PRN shortness 12/19/20 aerosol inhaler of breath or wheezing #8.5 grams atorvastatin 20 mg tablet (Lipitor) 20 mg PO PM 90 days #90 tabs 06/24/22 fluticasone fur. 100 mcg-umeclid 1 inh inhalation DAILY #60 ea 03/31/23 62.5 mcg-vilant 25 mcg inhalat.powder (Trelegy Ellipta) amiodarone 200 mg tablet 200 mg PO BIDM #60 tabs 05/01/23 apixaban 5 mg tablet (Eliquis) 5 mg PO BID #60 tabs 05/01/23 Oxygen Home [id number] #1 L 05/05/23 furosemide 20 mg tablet (Lasix) 20 mg PO QAM #30 tabs 05/05/23 magnesium oxide 400 mg (241.3 mg 400 mg PO QAM #30 tabs 05/05/23 magnesium) tablet potassium chloride 10 mEq 10 meq PO DAILY #30 tabs 05/05/23 tablet,extended release nystatin 100,000 unit/mL oral 5 ml PO QID 7 days #140 mL 05/07/23 suspension Results & Data (ED) Vital Signs Vital Signs - 24 hr 05/11/23 05:25 05/11/23 05:27 05/11/23 05:27 Temperature 36.7 C Temperature Source Temporal Artery Scan Pulse Rate 91 H 74 Pulse Rate [Apical] 74 Pulse Rate from SpO2 Sensor Pulse Rhythm Regular Pulse Rhythm [Apical] Regular Pulse Strength [Apical] Normal Respiratory Rate 17 18 18 Respiratory Effort / Characteristics Non-Labored Spontaneous Respiratory Depth Normal Normal Respiratory Pattern Regular Blood Pressure 97/65 L Blood Pressure [Right Arm] 100/57 L Blood Pressure Mean 75 Blood Pressure Mean [Right Arm] 71 Blood Pressure Position [Right Arm] Lying Pulse Oximetry 92 97 95 Oxygen Delivery Method Nasal Cannula Nasal Cannula Nasal Cannula Oxygen Flow Rate 6 6 6 Sepsis Recent Fever Within 48 Hours No Sepsis New/Unexplained Change in Mental Status No Sepsis Action Taken by Nursing No Action Required 05/11/23 05:56 05/11/23 06:15 05/11/23 06:17 Temperature Temperature Source Pulse Rate 72 Pulse Rate [Apical] 76 Pulse Rate from SpO2 Sensor Pulse Rhythm Pulse Rhythm [Apical] Regular Pulse Strength [Apical] Normal Normal Respiratory Rate 18 Respiratory Effort / Characteristics Non-Labored Spontaneous Respiratory Depth Normal Respiratory Pattern Regular Blood Pressure Blood Pressure [Right Arm] 113/61 Blood Pressure Mean Blood Pressure Mean [Right Arm] 78 Blood Pressure Position [Right Arm] Lying Pulse Oximetry 96 Oxygen Delivery Method Nasal Cannula Oxygen Flow Rate 5 Sepsis Recent Fever Within 48 Hours Sepsis New/Unexplained Change in Mental Status Sepsis Action Taken by Nursing 05/11/23 06:57 05/11/23 07:30 05/11/23 07:45 Temperature Temperature Source Pulse Rate 77 82 Pulse Rate [Apical] 78 Pulse Rate from SpO2 Sensor Pulse Rhythm Pulse Rhythm [Apical] Pulse Strength [Apical] Respiratory Rate 15 16 13 Respiratory Effort / Characteristics Non-Labored Spontaneous Respiratory Depth Normal Respiratory Pattern Regular Blood Pressure 102/56 L 97/58 L Blood Pressure [Right Arm] 96/56 L Blood Pressure Mean 71 71 Blood Pressure Mean [Right Arm] 69 Blood Pressure Position [Right Arm] Semi-fowlers Pulse Oximetry 94 95 91 Oxygen Delivery Method Nasal Cannula Nasal Cannula Nasal Cannula Oxygen Flow Rate 5 5 5 Sepsis Recent Fever Within 48 Hours Sepsis New/Unexplained Change in Mental Status Sepsis Action Taken by Nursing 05/11/23 08:00 05/11/23 08:00 05/11/23 08:30 Temperature Temperature Source Pulse Rate 90 81 Pulse Rate [Apical] 85 Pulse Rate from SpO2 Sensor Pulse Rhythm Pulse Rhythm [Apical] Pulse Strength [Apical] Respiratory Rate 15 18 20 Respiratory Effort / Characteristics Non-Labored Spontaneous Respiratory Depth Normal Respiratory Pattern Regular Blood Pressure 96/62 L 94/56 L Blood Pressure [Right Arm] 96/62 L Blood Pressure Mean 73 68 Blood Pressure Mean [Right Arm] 73 Blood Pressure Position [Right Arm] Semi-fowlers Pulse Oximetry 96 91 91 Oxygen Delivery Method Nasal Cannula Nasal Cannula Nasal Cannula Oxygen Flow Rate 5 5 5 Sepsis Recent Fever Within 48 Hours Sepsis New/Unexplained Change in Mental Status Sepsis Action Taken by Nursing 05/11/23 09:00 05/11/23 09:00 05/11/23 09:01 Temperature Temperature Source Pulse Rate 72 79 Pulse Rate [Apical] Pulse Rate from SpO2 Sensor Pulse Rhythm Pulse Rhythm [Apical] Pulse Strength [Apical] Respiratory Rate 20 15 Respiratory Effort / Characteristics Respiratory Depth Respiratory Pattern Blood Pressure 86/55 L 86/55 L 101/58 L Blood Pressure [Right Arm] Blood Pressure Mean 65 64 72 Blood Pressure Mean [Right Arm] Blood Pressure Position [Right Arm] Pulse Oximetry 95 92 Oxygen Delivery Method Nasal Cannula Nasal Cannula Oxygen Flow Rate 5 5 Sepsis Recent Fever Within 48 Hours Sepsis New/Unexplained Change in Mental Status Sepsis Action Taken by Nursing 05/11/23 09:30 05/11/23 10:00 Temperature Temperature Source Pulse Rate 73 79 Pulse Rate [Apical] Pulse Rate from SpO2 Sensor 79 Pulse Rhythm Pulse Rhythm [Apical] Pulse Strength [Apical] Respiratory Rate 14 17 Respiratory Effort / Characteristics Respiratory Depth Respiratory Pattern Blood Pressure 105/59 L 98/60 L Blood Pressure [Right Arm] Blood Pressure Mean 74 72 Blood Pressure Mean [Right Arm] Blood Pressure Position [Right Arm] Pulse Oximetry 95 100 Oxygen Delivery Method Nasal Cannula Oxygen Flow Rate 5 Sepsis Recent Fever Within 48 Hours Sepsis New/Unexplained Change in Mental Status Sepsis Action Taken by Residential Medications Current Medication List: was personally reviewed by me Laboratory Data Attestation: I reviewed the patient's lab results. 05/11/23 05:45 05/11/23 05:45 Lab Results 05/11/23 05/11/23 05/11/23 Range/Units 05:45 06:02 06:38 WBC 4.29 L (4.8-10.8) K/ul RBC 2.57 L (4.70-6.10) M/uL Hgb 7.6 L (14.0-18.0) g/dl Hct 24.1 L (42.0-52.0) % MCV 93.8 (80.0-100.0) fL MCH 29.6 (25.0-34.0) pg MCHC 31.5 L (32.0-36.0) g/dL RDW Std Deviation 53.2 H (36.4-46.3) fL RDW Coeff of Fany 15.7 H (11.5-14.5) % Plt Count 230 (130-400) K/uL MPV 9.9 (9.4-12.4) fL Immature Gran % (Auto) 1.9 % Neut % (Auto) 50.8 % Lymph % (Auto) 22.6 % Crowley % (Auto) 23.5 % Eos % (Auto) 0.7 % Baso % (Auto) 0.5 % Neut # (Auto) 2.18 (1.40-6.50) K/uL Lymph # (Auto) 0.97 L (1.20-3.40) K/uL Crowley # (Auto) 1.01 H (0.11-0.59) K/uL Eos # (Auto) 0.03 (0.00-0.50) K/uL Baso # (Auto) 0.02 (0.00-0.20) K/uL Immature Gran # (Auto) 0.08 (0.01-0.20) K/uL Toxic Granulation 1+ Dohle Bodies 1+ Polychromasia 1+ PT 12.0 (9.0-12.0) Seconds INR 1.1 (0.9-1.1) VBG pH 7.51 H (7.36-7.41) VBG pCO2 40 (38-50) mmHg VBG pO2 59 mmHg VBG HCO3 32 mmol/L VBG O2 Saturation 90.2 % VBG Base Excess 8.2 mEq/L Sodium 129 L (136-145) mmol/L Potassium 4.2 (3.5-5.1) mmol/L Chloride 94 L (98-107) mmol/L Carbon Dioxide 28 (21-32) mmol/L Anion Gap 7 (3-11) BUN 28 H (6-23) mg/dl Creatinine 1.18 (0.6-1.4) mg/dl Est Cr Clr Drug Dosing Not Reportable Est GFR ( Amer) 69.1 ml/min Est GFR (Non-Af Amer) 59.6 ml/min BUN/Creatinine Ratio 23.7 H (10-20) Glucose 114 H (70-99(Fasting)) mg/dl Lactate 1.4 (0.4-2.0) mmol/L Calcium 8.6 (8.6-10.3) mg/dl Magnesium 1.7 (1.7-2.4) mg/dl Total Bilirubin 1.4 H (0.2-1.0) mg/dl AST 43 H (13-39) U/L ALT 88 H (7-52) U/L Alkaline Phosphatase 123 H (34-104) U/L Troponin I High Sens 8.4 (0-20) pg/ml B-Natriuretic Peptide 93 (0-100) pg/ml Total Protein 6.3 (6.0-8.3) gm/dl Albumin 2.5 L (3.4-5.0) gm/dl Globulin 3.8 (2.5-4.0) gm/dl Albumin/Globulin Ratio 0.7 L (0.9-2) Procalcitonin 0.31 (0-0.5) ng/ml Random Cortisol 27.22 mcg/dl Urine Color Urine Appearance (Clear) Urine pH (4.5-7.5) Ur Specific [place] (1.000-1.030) Urine Protein (Negative) Urine Glucose (UA) (Negative) Urine Ketones (Negative) Urine Blood (Negative) Urine Nitrite (Negative) Urine Bilirubin (Negative) Urine Urobilinogen (Negative) Ur Leukocyte Esterase (Negative) Urine WBC (Auto) (0-5) /hpf Urine RBC (Auto) (0-4) /hpf U Hyaline Cast (Auto) (0-5) /lpf U Epithel Cells (Auto) (0-5) /lpf Urine Bacteria (Auto) (Negative) Adenovirus (PCR) Not Detected (NotDetected) B. pertussis DNA (PCR) Not Detected (NotDetected) B.parapertussis DNA PCR Not Detected (NotDetected) C. pneumoniae DNA (PCR) Not Detected (NotDetected) Coronavirus OC43 (PCR) Not Detected (NotDetected) Coronavirus HKU1 (PCR) Not Detected (NotDetected) Coronavirus 229E (PCR) Not Detected (NotDetected) SARS-CoV-2 (PCR) Not Detected (NotDetected) Coronavirus NL63 (PCR) Not Detected (NotDetected) Human Metapneumovir PCR Not Detected (NotDetected) Influenza Type A (PCR) Not Detected (NotDetected) Influenza Type B (PCR) Not Detected (NotDetected) M. pneumoniae (PCR) Not Detected (NotDetected) Parainfluenza 1 (PCR) Not Detected (NotDetected) Parainfluenza 2 (PCR) Not Detected (NotDetected) Parainfluenza 3 (PCR) Not Detected (NotDetected) Parainfluenza 4 (PCR) Not Detected (NotDetected) RSV (PCR) Not Detected (NotDetected) Entero/Rhino (PCR) Not Detected (NotDetected) Blood Type A Positive Antibody Screen NEGATIVE Crossmatch See Detail 05/11/23 Range/Units 08:00 WBC (4.8-10.8) K/ul RBC (4.70-6.10) M/uL Hgb (14.0-18.0) g/dl Hct (42.0-52.0) % MCV (80.0-100.0) fL MCH (25.0-34.0) pg MCHC (32.0-36.0) g/dL RDW Std Deviation (36.4-46.3) fL RDW Coeff of Fany (11.5-14.5) % Plt Count (130-400) K/uL MPV (9.4-12.4) fL Immature Gran % (Auto) % Neut % (Auto) % Lymph % (Auto) % Crowley % (Auto) % Eos % (Auto) % Baso % (Auto) % Neut # (Auto) (1.40-6.50) K/uL Lymph # (Auto) (1.20-3.40) K/uL [place] # (Auto) (0.11-0.59) K/uL Eos # (Auto) (0.00-0.50) K/uL Baso # (Auto) (0.00-0.20) K/uL Immature Gran # (Auto) (0.01-0.20) K/uL Toxic Granulation Dohle Bodies Polychromasia PT (9.0-12.0) Seconds INR (0.9-1.1) VBG pH (7.36-7.41) VBG pCO2 (38-50) mmHg VBG pO2 mmHg VBG HCO3 mmol/L VBG O2 Saturation % VBG Base Excess mEq/L Sodium (136-145) mmol/L Potassium (3.5-5.1) mmol/L Chloride (98-107) mmol/L Carbon Dioxide (21-32) mmol/L Anion Gap (3-11) BUN (6-23) mg/dl Creatinine (0.6-1.4) mg/dl Est Cr Clr Drug Dosing Est GFR ( Amer) ml/min Est GFR (Non-Af Amer) ml/min BUN/Creatinine Ratio (10-20) Glucose (70-99(Fasting)) mg/dl Lactate (0.4-2.0) mmol/L Calcium (8.6-10.3) mg/dl Magnesium (1.7-2.4) mg/dl Total Bilirubin (0.2-1.0) mg/dl AST (13-39) U/L ALT (7-52) U/L Alkaline Phosphatase (34-104) U/L Troponin I High Sens (0-20) pg/ml B-Natriuretic Peptide (0-100) pg/ml Total Protein (6.0-8.3) gm/dl Albumin (3.4-5.0) gm/dl Globulin (2.5-4.0) gm/dl Albumin/Globulin Ratio (0.9-2) Procalcitonin (0-0.5) ng/ml Random Cortisol mcg/dl Urine Color Yellow Urine Appearance Clear (Clear) Urine pH 6.5 (4.5-7.5) Ur Specific [place] 1.019 (1.000-1.030) Urine Protein 2+ H (Negative) Urine Glucose (UA) Negative (Negative) Urine Ketones Negative (Negative) Urine Blood 1+ H (Negative) Urine Nitrite Negative (Negative) Urine Bilirubin Negative (Negative) Urine Urobilinogen Negative (Negative) Ur Leukocyte Esterase Negative (Negative) Urine WBC (Auto) 1-5 (0-5) /hpf Urine RBC (Auto) 0-4 (0-4) /hpf U Hyaline Cast (Auto) 1-5 (0-5) /lpf U Epithel Cells (Auto) 10-20 H (0-5) /lpf Urine Bacteria (Auto) Negative (Negative) Adenovirus (PCR) (NotDetected) B. pertussis DNA (PCR) (NotDetected) B.parapertussis DNA PCR (NotDetected) C. pneumoniae DNA (PCR) (NotDetected) Coronavirus OC43 (PCR) (NotDetected) Coronavirus HKU1 (PCR) (NotDetected) Coronavirus 229E (PCR) (NotDetected) SARS-CoV-2 (PCR) (NotDetected) Coronavirus NL63 (PCR) (NotDetected) Human Metapneumovir PCR (NotDetected) Influenza Type A (PCR) (NotDetected) Influenza Type B (PCR) (NotDetected) M. pneumoniae (PCR) (NotDetected) Parainfluenza 1 (PCR) (NotDetected) Parainfluenza 2 (PCR) (NotDetected) Parainfluenza 3 (PCR) (NotDetected) Parainfluenza 4 (PCR) (NotDetected) RSV (PCR) (NotDetected) Entero/Rhino (PCR) (NotDetected) Blood Type Antibody Screen Crossmatch Administered Medications Amiodarone HCl (Amiodarone 200 Mg Tab) 200 mg PO BIDM [facility] Stop: 06/10/23 16:59 Last Admin: 05/11/23 16:30 Dose: 200 mg Documented By: KIT Piperacillin Sod/Tazobactam (Sod 4.5 gm/ Dextrose) 100 mls @ 25 mls/hr IV Q8H KENDAL; Protocol Stop: 05/18/23 12:59 Last Admin: 05/11/23 16:29 Dose: 25 mls/hr Documented By: KIT Miscellaneous (Icu Protocol For Hyperglycemia) 1 each N/A Q6 KENDAL Stop: 05/13/23 12:57 Last Admin: 05/11/23 17:51 Dose: 1 each Documented By: KIT Discontinued Medications Albuterol (Albut/Ipratrop 3mg/0.5mg Neb 3 Ml Vial) 3 ml NEB NOW STA; Protocol Stop: 05/11/23 05:36 Last Admin: 05/11/23 05:57 Dose: 3 ml Documented By: EVANGELIST Piperacillin Sod/Tazobactam Sod (Zosyn) 4.5 gm in 100 mls @ 200 mls/hr IV NOW ONE Stop: 05/11/23 07:41 Last Infusion: 05/11/23 08:06 Dose: Infused Documented By: Admin: 05/11/23 07:27 Dose: 200 mls/hr Documented By: EN Sodium Chloride (Nss) 500 mls @ 999 mls/hr IV .Q31M ONE Stop: 05/11/23 09:40 Last Infusion: 05/11/23 10:10 Dose: Infused Documented By: Admin: 05/11/23 09:22 Dose: 999 mls/hr Documented By: EN Sodium Chloride (Nss) 1,000 mls @ 125 mls/hr IV .Q8H [facility] Stop: 06/10/23 09:14 Last Infusion: 05/11/23 12:59 Dose: Infused Documented By: Infusion: 05/11/23 12:30 Dose: 0 mls/hr Documented By: Admin: 05/11/23 09:22 Dose: 125 mls/hr Documented By: EN Vancomycin HCl 1,500 mg/ (Sodium Chloride) 530 mls @ 200 mls/hr IV ONE ONE Stop: 05/11/23 15:53 Last Infusion: 05/11/23 16:45 Dose: Infused Documented By: Admin: 05/11/23 13:24 Dose: 200 mls/hr Documented By: KIT Ioversol (Optiray 320 125ml) 112 ml IV ONCE ONE Stop: 05/11/23 07:09 Last Admin: 05/11/23 07:08 Dose: 112 ml Documented By: ASHVIN Miscellaneous ([facility] Protocol For Hyperglycemia) 1 each N/A ACHS [facility] Stop: 05/13/23 12:57 Last Admin: 05/11/23 13:31 Dose: 1 each Documented By: KIT Tranexamic Acid (Txa 10% Non-Iv Routes 100 Mg/Ml Vial) 500 mg NEB ONE ONE Stop: 05/11/23 08:05 Last Admin: 05/11/23 08:09 Dose: 500 mg Documented By: EN Tranexamic Acid (Txa 10% Non-Iv Routes 100 Mg/Ml Vial) 500 mg NEB ONE ONE Stop: 05/11/23 09:29 Last Admin: 05/11/23 09:41 Dose: 500 mg Documented By: EN Imaging Data Radiologist's Impression: Chest X-Ray 05/11/23 05:23 XR chest 1V portable CLINICAL HISTORY: Dyspnea. COMPARISON STUDY: Chest radiograph May 02, 2023. Chest CT April 21, 2023. FINDINGS: There is no pneumothorax or pleural effusion. Bibasilar airspace opacities persist. There is underlying emphysema. No evidence for pulmonary edema. Cardiomediastinal silhouette is stable. IMPRESSION: 1. Persistent bibasilar opacities suggestive of pneumonia. Radiographic follow- up to ensure resolution is recommended. 2. No pneumothorax. ACT 112: Negative or not required by law. Electronically signed by: Ascencion Hodge M.D. 05/11/2023 6:53 AM Chest CTA 05/11/23 05:28 CT angio chest PE protocol CT DOSE: 656.35 mGy.cm HISTORY: 78 years-old Male with PE. Acute shortness of breath with history of lung cancer TECHNIQUE: Multiple CTA images of the chest were obtained after the intravenous administration of 112 ml Optiray. Coronal and sagittal MIPS were obtained from the axial data set and were submitted for review. All measurements were obtained according to NASCET criteria. A dose lowering technique was utilized adhering to the principles of ALARA. COMPARISON: Radiation chest CT 05/08/2023, CT chest 04/21/2023, 01/31/2023, PET CT 01/15/2023. FINDINGS: CTA: The heart is mildly enlarged. No pericardial effusion. Moderate coronary artery calcifications. Atherosclerosis of the thoracic aorta without aneurysm or dissection. Suboptimal evaluation of the pulmonary arterial tree secondary to respiratory motion artifact. No central pulmonary emboli are identified. CT CHEST: No dominant thyroid nodule. Borderline enlarged 10 mm subcarinal lymph node has decreased in size from prior. 11 mm precarinal lymph node on image 127 previously measured 1.5 cm. No new or progressive lymphadenopathy. There is no pneumothorax, pleural effusion or overt pulmonary edema. There is severe pulmonary emphysema. Patchy bibasilar groundglass and consolidative opacities redemonstrated. Several the previously seen nodular foci of consolidation have improved. One of the areas of consolidation however within the left lower lobe subpleural distribution on image 109 series 4 now demonstrates central cavitation and overall measures 6.3 x 4.0 x 3.7 cm. Central airways are generally patent. Left upper lobe nodules are redemonstrated, better seen on the prior PET/CT. Nonobstructing right renal calculi. Hyperdense lesion of the superior pole right kidney may represent a proteinaceous or hemorrhagic cyst. Bilateral renal cysts. Unremarkable soft tissues. No acute fracture or destructive bone lesion. IMPRESSION: 1. No pulmonary emboli identified. 2. Severe emphysema with patchy bilateral airspace opacities redemonstrated within a bibasilar prominent distribution suggestive of multifocal pneumonia. Interval development of a focus of cavitary pneumonia within the left lower lobe measuring up to 6.3 cm. Close follow-up is needed. 3. No pleural effusion or pneumothorax. 4. Decreased size of the mediastinal lymphadenopathy compared to the 04/21/2023 exam. 5. Redemonstration of suspicious pulmonary nodules of the left lower lobe, previously described on the PET/CT from 01/15/2023. 6. Right nephrolithiasis. ACT 112: Negative or not required by law. The above report was generated using voice recognition software. It may contain grammatical, syntax or spelling errors. Electronically signed by: Tacho Carlin M.D. 05/11/2023 7:49 AM Discharge Plan Visit Data Chief Complaint: Cough Stated Complaint: COUGHING AND SPITTING UP BLOOD ED Provider: Daniella Rm Discharge Problem: Bilateral pneumonia, Adenocarcinoma of left lung, stage 3, Bleeding from mouth, Chronic anticoagulation Patient Disposition: Admitted As Inpatient Discharge Instructions Interventions: ED Discharge Assessment Last Done: 05/11/23 12:13 Discharge Problem: Bilateral pneumonia Qualifiers: Pneumonia type: due to Pseudomonas Lung location: unspecified part of lung Q ualified Code(s): J15.1 - Pneumonia due to Pseudomonas
[2023-05-12] MEDS: VANCOMYCIN HCL 1,250 MG in SODIUM CHLORIDE 0.9% 250 ML IV SCH (01:29)
[2023-05-12 06:53] LABS: Hematocrit (blood only) 26.4 % (42.0-52.0); Mean Corpuscular Hemoglobin 30.5 pg (25.0-34.0); Mean Corpuscular Hgb Conc 34.1 g/dL (32.0-36.0); Mean Corpuscular Volume 89.5 fL (80.0-100.0); Mean Platelet Volume 9.7 fL (9.4-12.4); Platelet Count 234 K/uL (130-400); RDW Coefficient of Variation 16.4 % (11.5-14.5); RDW Standard Deviation 53.2 fL (36.4-46.3); Red Blood Count 2.95 M/uL (4.70-6.10); White Blood Count 3.68 K/ul (4.8-10.8)
[2023-05-12 07:30] LABS: INR 1.1 (0.9-1.1); Prothrombin Time 11.6 Seconds (9.0-12.0)
--- NOTE | 2023-05-12 07:38 | Hospitalist Progress Note ---
Date of Service May 12, 2023 Assessment & Plan (1) Cavitary lesion of lung: Plan: 6.3cm, LLL - NEW in comparison to previous CT chest (last CT was 04/21/23), presented with major hemoptysis treated with TXA, anticoagulation stopped this new lesion is highly concerning given that he just finished a prolonged course of IV cefepime 3 days ago at his home differential - seems most likely related to lung cancer with cavitation vs infection - bacterial vs fungal, TB consulted ID cont airborne isolation continue pip-tazo, nasal MRSA neg quantiferon gold test, galactomannan, B-1,3-D-glucan, sputum AFB pending continue IV zosyn discussed with Dr. Khan (2) Acute and chronic respiratory failure with hypoxia: Plan: Improved, related to hemoptysis and aspirated blood no evidence of superimposed pulmonary edema despite his LE edema and mild systolic CHF on prior echo dated 04/22/23 no evidence of PE on imaging chronic resp failure is 2nd to COPD, lung ca, recent extensive pneumonia, etc improved to 4L O2 this afternoon typically on 3L NC O2 at rest, 6L NC O2 with activity (3) Blood in mouth of unknown source: Plan: Major hemoptysis related to cavitary lung lesion - see above -aspirin and DOAC were stopped -improved -see above (4) Multifocal pneumonia: Plan: had such during his prior hospitalization in 04/2023 complicated by chemo-induced pancytopenia and septic shock continues with radiographic evidence of b/l pneumonia despite recent 14-day course of IV cefepime for presumed pseudomonas now with left-sided cavitary lesion - see above (5) Acute blood loss anemia: Plan: 2nd to #3 his BPs are low or low-normal cortisol level is >20 transfused 1 unit RBCs 05/10 with some increase in Hct (6) Chronic systolic CHF (congestive heart failure): Plan: echo 04/2023 - EF 45-50% was going to follow with [facility] [place] [place] CH[facility] clinic after recent hospitalization he has considerable LE edema on exam he had such during prior hospitalization and was diuresed during that recent stay his edema persists despite use of daily lasix at home low albumin of 2.5 is contributing to his edema as well watch volume status carefully given the PRBCs, etc. (7) PAF (paroxysmal atrial fibrillation): Plan: diagnosed with such in the ICU during prior hospitalization needed IV amiodarone during that stay with conversion to NSR discharged on Eliquis + amiodarone Eliquis now on hold due to the presumed hemoptysis/bleeding he had overnight at home cont amiodarone to maintain NSR (8) Abnormal LFTs: Plan: seen during the prior hospitalization LFTs remain mildly high but stable (9) Adenocarcinoma of left lung, stage 3: Plan: dx 01/2023 stage 3a s/p radiation along with chemotherapy last chemo - 04/20/23 - carboplatin/paclitaxel follows with Dr Ro[facility] (10) History of abdominal aortic aneurysm repair: Plan: 2016 (11) Chronic obstructive pulmonary disease: Plan: with resulting chronic hypoxic resp failure on home O2 prior heavy tobacco dependence cont home inhalers (12) DVT prophylaxis: Plan: SCDs only chemoprophylaxis contraindicated due to acute bleeding Eliquis on hold Plan pt's updated at bedside 05/10 pt requests full code status prognosis is guarded in light of fragile status, new cavitary lesion, active bleeding, etc - all in the midst of lung ca Admission and Anticipated Discharge Date Admission Date: May 11, 2023 Subjective Had coughing with pink sputum overnight but no more major hemoptysis No chest pain or dyspnea Low appetite Physical Exam 2 Physical Exam: PHYSICAL EXAMINATION Last 24h vital signs reviewed, see documentation in flowsheet General: comfortable appearing, no distress, pale appearing HEENT: Normocephalic, atraumatic, pupils round and equal, sclerae anicteric, no conjunctival injection, moist mucus membranes Lungs: Normal respiratory effort. coarse in bases. pink sputum in suction Heart: Regular rate and rhythm, no murmurs. No JVD Abdomen: Soft, nontender, nondistended. Bowel sounds present. Extremities: Warm, dry, well-perfused. No extremity edema. Neuro: Alert and oriented x 4, face symmetric, moves 4 extremities well Psych: Normal affect and behavior Results & Data Results & Data Vital Signs (Past 12 Hours) Vital Signs Temp Pulse Resp BP Pulse Ox O2 Del Method O2 Flow Rate 05/12/23 06:02 60 13 92 05/12/23 06:02 121/60 05/12/23 06:00 65 19 94 05/12/23 05:00 69 20 92 05/12/23 04:01 124/60 05/12/23 04:01 124/60 05/12/23 04:01 62 17 92 05/12/23 04:00 61 15 92 05/12/23 03:52 36.6 C 05/12/23 03:01 118/59 L 05/12/23 03:01 62 17 92 05/12/23 03:00 64 14 90 05/12/23 02:02 63 15 94 05/12/23 02:02 116/58 L 05/12/23 02:00 64 20 91 05/12/23 01:39 36.6 C 05/12/23 01:01 65 16 91 05/12/23 01:01 128/67 05/12/23 01:00 63 16 91 05/12/23 00:30 72 17 91 05/12/23 00:01 110/62 05/12/23 00:01 66 19 90 05/12/23 00:00 72 05/12/23 00:00 68 19 89 L 05/11/23 23:30 72 15 81 L 05/11/23 23:01 67 17 93 05/11/23 23:01 118/63 05/11/23 23:00 79 24 86 L 05/11/23 22:30 70 23 91 05/11/23 22:01 67 14 95 05/11/23 22:01 118/57 L 05/11/23 22:00 66 14 94 05/11/23 21:30 71 18 91 05/11/23 21:01 119/61 05/11/23 21:01 66 16 93 05/11/23 21:00 73 16 92 05/11/23 20:30 64 17 93 05/11/23 20:02 67 21 92 05/11/23 20:02 118/53 L 05/11/23 20:00 69 14 91 05/11/23 19:59 High Flow Nasal Cannula 7 Laboratory Results 05/12/23 06:04 05/12/23 06:04 05/12/23 06:04 PG Care Time/CCT Total # of Minutes Spent Total Time Spent with Patient: Total time spent is greater than 50% in coordination of care (as documented) at patient's floor/unit and/or counseling patient: Coding Level of Care Code 76608 SUB INP/OBS CARE 3/50MIN Diagnoses Cavitary lesion of lung J98.4 Acute and chronic respiratory failure with hypoxia J96.21 Blood in mouth of unknown source K13.79 Multifocal pneumonia J18.9 Acute blood loss anemia D62 Chronic systolic CHF (congestive heart failure) I50.22 PAF (paroxysmal atrial fibrillation) I48.0 Abnormal LFTs R79.89 Adenocarcinoma of left lung, stage 3 C34.92 History of abdominal aortic aneurysm repair Z98.890 Centrilobular emphysema J43.2 COPD type: emphysema Emphysema type: centrilobular DVT prophylaxis Z29.9 (11) 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
[2023-05-12] MEDS: UMECLIDINIUM/VILANTEROL 62.5/25MCG 7 PUFFS/INHALER INH SCH (07:39)
[2023-05-12] MEDS: FLUTICASONE FUROATE 100MCG 14 PUFFS/INHALER INH SCH (07:40)
[2023-05-12 07:51] LABS: BUN Creatinine Ratio 21.8 (10-20); Calcium 8.1 mg/dl (8.6-10.3); Creatinine Clr Calc Pharmacy 58.2 ml/min; Est GFR (African American) 83.4 ml/min; Est GFR (Non-African American) 71.9 ml/min; Potassium 3.9 mmol/L (3.5-5.1)
[2023-05-12 08:00] LABS: Basophils # (auto) 0.04 K/uL (0.00-0.20); Basophils % (auto) 1.1 %; Eosinophils # (auto) 0.07 K/uL (0.00-0.50); Eosinophils % (auto) 1.9 %; Immature Granulocytes # (auto) 0.22 K/uL (0.01-0.20); Lymphocytes # (auto) 0.62 K/uL (1.20-3.40); Lymphocytes % (auto) 16.8 %; Monocytes # (auto) 1.07 K/uL (0.11-0.59); Monocytes % (auto) 29.1 %; Neutrophils # (auto) 1.66 K/uL (1.40-6.50); Neutrophils % (auto) 45.1 %; Polychromasia 1+
[2023-05-12] MEDS ORDERED: NON-FORMULARY MEDICATION (Fluticasone-Umeclidin-Vilanter [Trelegy Ellipta] 100-62.5-25 mcg INH SCH (09:00)
--- NOTE | 2023-05-12 09:17 | Critical Care Progress Note ---
Date of Service May 12, 2023 Assessment & Plan (1) PAF (paroxysmal atrial fibrillation): (2) Chronic systolic CHF (congestive heart failure): (3) Acute blood loss anemia: (4) Cavitary lesion of lung: (5) Acute HFrEF (heart failure with reduced ejection fraction): (6) Chronic obstructive pulmonary disease: Plan .Assessment: 78yo male who presented with hemoptysis, admitted to the ICU for close monitoring. Critical care indication: hemoptysis, acute blood loss anemia Plan: Neurologic CAM ICU negative Sedation: none Analgesia: none Cardiac BP stable at this time HFrEF - echo 04/2023 EF 45-50%; Grade 2 diastolic dysfunction A fib - eliquis held, cont amiodarone 200mg daily Respiratory COPD: continue home inhalers, albuterol PRN Titrate NC PRN to mainatin satts >90% Zosyn ID consulted consider bronchoscopy Gastrointestinal Diet: NPO Renal/electrolytes No significant electrolyte derangement at this time Replete electrolytes as needed Genitourinary No concerns at this time Strict I/O's Endocrine BSG stable Hematologic Hgb 9.0 this am s/p 2 U PRBCs Follow daily CBC Blood type: A+ Infectious disease Afebrile since admission New LLL lesion cont zosyn dc vanc; MRSA swab negative ID consult pt with immunocompromise, mycoplasma or fungal pathogen cannnot be ruled out galactomannin, B glucan, aspergillus antigen, quantiferon ordered Integumentary No concerns at this time Lines/access 2 PIVs intact Prophylaxis DVT ppx: SCDs FENGI: NPO Code status: Full DVT prophylaxis: SCDs Isolation: Airborne Disposition: ICU Thank you the opportunity to participate in this patient's care. Please see attending documentation for further recommendations. Admission and Anticipated Discharge Date Admission Date: May 11, 2023 Supervising Physician Co-Signing Physician Notes Patient seen and examined with resident physician. Agree with assessment and plan aside for any additions/exceptions noted: Hemoptysis has resolved today. Hypoxia is improving. He is down to 6 L of oxygen at this time saturating in the mid 90s. He notes that his appetite is improved today. Will follow-up QuantiFERON gold results and fungal serologies. Awaiting ID input. Patient stable for downgrade out of the ICU. Subjective Patient seen and evaluated at bedside this morning. With increased O2 demand overnight to max of 7L NC. On 2L this am. No further clots or large hemoptysis. Continues to deny SOB, CP, N/V/D, new LE swelling. Review of Systems Review of Systems: reviewed, per HPI Physical Exam Physical Exam: Constitutional: chronically ill appearing, NAD HEENT: NCAT, scab in L nare, several lesions on the soft/hard palate, erythema surrounding this region CV: regular rhythm, no murmur appreciated, extremities well-perfused, 2+ pitting edema bilaterally Resp: globally decreased breath sounds, no wheeze GI: soft, nondistended, nontender, BS normoactive MSK: no gross deformities appreciated Skin: warm, dry, no rash appreciated Neuro: alert, oriented, no focal neurologic deficit appreciated Results & Data Results & Data Vital Signs (Past 12 Hours) Vital Signs Temp Pulse Resp BP Pulse Ox O2 Del Method O2 Flow Rate 05/12/23 08:03 66 19 91 05/12/23 08:03 117/64 05/12/23 08:03 117/64 05/12/23 08:00 69 14 92 05/12/23 08:00 Nasal Cannula 2 05/12/23 08:00 36.9 C 05/12/23 07:56 59 L 16 94 05/12/23 07:56 124/67 05/12/23 07:02 58 L 16 95 05/12/23 07:02 124/63 05/12/23 07:00 62 14 95 05/12/23 06:02 60 13 92 05/12/23 06:02 121/60 05/12/23 06:00 65 19 94 05/12/23 05:00 69 20 92 05/12/23 04:01 124/60 05/12/23 04:01 124/60 05/12/23 04:01 62 17 92 05/12/23 04:00 61 15 92 05/12/23 03:52 36.6 C 05/12/23 03:01 118/59 L 05/12/23 03:01 62 17 92 05/12/23 03:00 64 14 90 05/12/23 02:02 63 15 94 05/12/23 02:02 116/58 L 05/12/23 02:00 64 20 91 05/12/23 01:39 36.6 C 05/12/23 01:01 65 16 91 05/12/23 01:01 128/67 05/12/23 01:00 63 16 91 05/12/23 00:30 72 17 91 05/12/23 00:01 110/62 05/12/23 00:01 66 19 90 05/12/23 00:00 72 05/12/23 00:00 68 19 89 L 05/11/23 23:30 72 15 81 L 05/11/23 23:01 67 17 93 05/11/23 23:01 118/63 05/11/23 23:00 79 24 86 L 05/11/23 22:30 70 23 91 05/11/23 22:01 67 14 95 05/11/23 22:01 118/57 L 05/11/23 22:00 66 14 94 05/11/23 21:30 71 18 91 Resident Activity Tracking Resident Involvement: Resident Care Provided Care Provided: Adult Hospital Medicine (6) 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
[2023-05-12] MEDS: PANTOprazole 40 MG in SYRINGE 0 ML IV SCH (11:47)
--- NOTE | 2023-05-12 12:54 | Billing Data ---
Date of Service May 12, 2023 Coding Level of Care Code 34049 SUB INP/OBS CARE
--- NOTE | 2023-05-12 19:23 | Infectious Disease Consult ---
Date of Consultation May 12, 2023 Assessment & Plan (1) Cavitary lesion of lung: Plan #Lung cavity 6.3 cm LLL #Recent PSA pneumonia 78yo M with h/o metastatic lung cancer on chemo/XRT (gets chemo no port, on carboplatin/paclitaxel since 04/20/23, currently held), PTX after biopsy, COPD, chronic hypoxia, recent admission for PSA bacteremia and multilobar pneumonia with completed therapy on 05/06 who was admitted to hospital new pneumonia. ID consulted for pneumonia in IC patient. Patient was discharged 05/04 and completed treatment with Cefepime on 05/06. Per notes/Patient's mentions that he was seemingly improving on the cefepime, but once the cefepime was completed, he seemed to have a more difficult time breathing. He denies any vomiting of blood, blood from the rectum or significant fevers. Admitted on 05/10 to ICU. Afebrile, 5L NC, soft BPs, CT Chest showed patchy bilateral airspace opacities redemonstrated within a bibasilar prominent distribution suggestive of multifocal pneumonia. Interval development of a focus of cavitary pneumonia within the left lower lobe measuring up to 6.3 cm. Patient started on IV Zosyn, had clinical improvement and stepped down from ICU 05/12/23 BDG, QFT gold aspergillus ag pending, RVP negative, urine histo pending Notably CT Chest on 04/20 showed Patchy bilateral airspace consolidations at the lung bases, RML/lingula c/w multilobar pneumonia DISCUSSION NEW cavity in lung compared to recent CT on 04/20. Suspect this is evolving bacterial cavity secondary to pseudomonas. However other etiologies including malignancy, TB, fungal are on differential. Less likely to be TB as no prior findings and this occured over course of 2+ weeks, suggesting more evolution from bacterial pneumonia. Agree with Zosyn; Follow ancillary fungal testing initiated by ICU QFT gold is pending, but AFB ordered, unclear if unable to make sputum? would ensure induced sputum, as PSA can become resistant Recommend Sputum culture AFB smears ordered? but not sent will follow QFT gold Ancillary fungal testing Close imaging follow up with possible bronch if no improvement Keep with Zosyn ID will patient live tomorrow am Tammie Barton MD Infectious Diseases Consultation Information This patient recommendation is based on a telemedicine consult request which was completed asynchronously through chart review and information provided by the primary physician. The patient was not seen or examined today. The evaluation is consultative in nature and all patient care and treatment decisions can either be accepted or rejected by the patient's primary hospital-based treating physician using their own independent medical judgment for their patient. Director Utilization Management contact information: Please call [facility] . (Phone Number For Physician Use Only) Time Spent Reviewing Chart: 31+ minutes History of Present Illness Reason for Consultation: cavitary pneumonia Requesting Physician: Dr. Beltran Attending Physician: Yue Beltran MD History of Present Illness 78yo M with h/o metastatic lung cancer on chemo/XRT (gets chemo no port, on carboplatin/paclitaxel since 04/20/23, currently held), PTX after biopsy, COPD, chronic hypoxia, recent admission for PSA bacteremia and multilobar pneumonia with completed therapy on 05/06 who was admitted to hospital new pneumonia. ID consulted for pneumonia in IC patient. Patient was discharged 05/04 and completed treatment with Cefepime on 05/06. Per notes/Patient's mentions that he was seemingly improving on the cefepime, but once the cefepime was completed, he seemed to have a more difficult time breathing. He denies any vomiting of blood, blood from the rectum or significant fevers. Admitted on 05/10 to ICU. Afebrile, 5L NC, soft BPs, CT Chest showed patchy bilateral airspace opacities redemonstrated within a bibasilar prominent distribution suggestive of multifocal pneumonia. Interval development of a focus of cavitary pneumonia within the left lower lobe measuring up to 6.3 cm. Patient started on IV Zosyn, had clinical improvement and stepped down from ICU 05/12/23 BDG, QFT gold aspergillus ag pending, RVP negative, urine histo pending Notably CT Chest on 04/20 showed Patchy bilateral airspace consolidations at the lung bases, RML/lingula c/w multilobar pneumonia Review of labs AST/ALT aphos 123, WBC 4.2 Allergies Allergy/AdvReac Type Severity Reaction Status Date / Time JUAN R Inhibitors AdvReac Intermediate hyperkalemi Verified 05/11/23 09:37 a Home Medications Medication Instructions Recorded Confirmed Type ascorbate calcium (vitamin C) 500 500 mg PO QAM 09/23/18 05/11/23 History mg tablet aspirin 81 mg tablet,delayed 81 mg PO QAM 09/23/18 05/11/23 History release (Adult Aspirin Regimen) vitamin E succinate 268 mg (400 400 units PO QAM 11/30/18 05/11/23 History unit) tablet albuterol sulfate 90 mcg/actuation 2 inh inhalation QID PRN shortness 12/19/20 05/11/23 Rx aerosol inhaler of breath or wheezing #8.5 grams atorvastatin 20 mg tablet (Lipitor) 20 mg PO PM 90 days #90 tabs 06/24/22 05/11/23 Rx cholecalciferol (vitamin D3) 50 50 mcg PO QPM 01/20/23 05/11/23 History mcg (2,000 unit) capsule (Vitamin D3) prochlorperazine maleate 10 mg 10 mg PO Q8H PRN Nausea 03/18/23 05/11/23 History tablet (Compazine) fluticasone fur. 100 mcg-umeclid 1 inh inhalation DAILY #60 ea 03/31/23 05/11/23 Rx 62.5 mcg-vilant 25 mcg inhalat.powder (Trelegy Ellipta) dexamethasone 4 mg tablet 4 mg PO UD 04/21/23 05/11/23 History ondansetron 8 mg disintegrating 8 mg PO Q8 PRN Nausea And Vomiting 04/21/23 05/11/23 History tablet amiodarone 200 mg tablet 200 mg PO BIDM #60 tabs 05/01/23 05/11/23 Rx apixaban 5 mg tablet (Eliquis) 5 mg PO BID #60 tabs 05/01/23 05/11/23 Rx Oxygen Home E0424 #1 L 05/05/23 05/07/23 Rx furosemide 20 mg tablet (Lasix) 20 mg PO QAM #30 tabs 05/05/23 05/11/23 Rx magnesium oxide 400 mg (241.3 mg 400 mg PO QAM #30 tabs 05/05/23 05/11/23 Rx magnesium) tablet potassium chloride 10 mEq 10 meq PO DAILY #30 tabs 05/05/23 05/11/23 Rx tablet,extended release nystatin 100,000 unit/mL oral 5 ml PO QID 7 days #140 mL 05/07/23 05/11/23 Rx suspension Patient History Medical History Diarrhea Multifocal pneumonia Chronic diastolic heart failure Chronic obstructive pulmonary disease Lower extremity edema BPH (benign prostatic hyperplasia) Hyperlipidemia Lung cancer Abdominal aortic aneurysm s/p repair 2016 Multiple pulmonary nodules determined by computed tomography of lung BPH (benign prostatic hyperplasia) Kidney stones hx PVC (premature ventricular contraction) on occasion Hypertension Diverticulosis Hyperlipemia COPD (chronic obstructive pulmonary disease) well controlled per pt > no res inh use Surgical History History of aortic aneurysm repair endovascular > [facility] > 2016 > follows with [facility] cardiology. Has to go for scan on 02/06/23 to check for "leak around the stent" as evidence of size increase per recent ultrasound [facility]. History of cataract surgery bilat History of tooth extraction dental implants History of lithotripsy History of inguinal hernia repair left x 1, right x 2. H/O colonoscopy 07/2020 repeat 5 years Family History Father Colon cancer Colorectal cancer Family/Other Heart disease Hypertension Mother Stroke Denies family history of Ovarian cancer Prostate cancer Myocardial infarction Breast cancer Social History Smoking Status: Former smoker Tobacco Type: Cigarettes Age Started Using Tobacco: 32; packs per day: 0.5; Cigarettes Per Day: 10 cigs per day; Second Hand Exposure: No; Do You Dip or Chew Tobacco: No; Hx Alcohol Use: No Hx Substance Use: No Preferred Language: Nauruan Communication Ability: Effective Visual Impairment: Limited Hearing Ability: Normal Shop Estimator Required: No Beliefs That Will Affect Care: None marital status: Current Living Situation: Spouse Current Living Situation Comment: lives with current occupational status: 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 How many Children do You have: 1 Feels Safe at Home: Yes Childhood Exposure to Second-Hand Smoke: No caffeine: Yes Dental Care, Regularly: Yes Physical Activity Frequency: Does not Exercise Seatbelt Use: always Sunscreen Use: Yes Assistive Devices: None Results & Data Vital Signs (Past 12 Hours) Vital Signs Temp Pulse Resp BP Pulse Ox O2 Del Method O2 Flow Rate 05/12/23 12:00 71 95 05/12/23 12:00 36.4 C L 05/12/23 11:00 81 20 93 05/12/23 10:01 62 13 91 05/12/23 10:01 111/55 L 05/12/23 10:00 61 17 91 05/12/23 09:01 101/62 05/12/23 09:01 60 18 05/12/23 09:00 67 13 93 05/12/23 08:03 66 19 91 05/12/23 08:03 117/64 05/12/23 08:03 117/64 05/12/23 08:00 69 14 92 05/12/23 08:00 Nasal Cannula 7 05/12/23 08:00 36.9 C 05/12/23 07:56 59 L 16 94 05/12/23 07:56 124/67 05/12/23 07:02 58 L 16 95 05/12/23 07:02 124/63 05/12/23 07:00 62 14 95 05/12/23 06:02 60 13 92 05/12/23 06:02 121/60 05/12/23 06:00 65 19 94 05/12/23 05:00 69 20 92 05/12/23 04:01 124/60 05/12/23 04:01 124/60 05/12/23 04:01 62 17 92 05/12/23 04:00 61 15 92 05/12/23 03:52 36.6 C 05/12/23 03:01 118/59 L 05/12/23 03:01 62 17 92 05/12/23 03:00 64 14 90 Laboratory Results Short CBC 05/12/23 Range/Units 06:04 WBC 3.68 L (4.8-10.8) K/ul Hgb 9.0 L (14.0-18.0) g/dl Hct 26.4 L (42.0-52.0) % Plt Count 234 (130-400) K/uL BMP 05/12/23 06:04 Sodium 136 Potassium 3.9 Chloride 102 Carbon Dioxide 29 BUN 22 Creatinine 1.01 Glucose 88 Calcium 8.1 L Medications Administered Current Inpatient Medications Amiodarone HCl (Amiodarone 200 Mg Tab) 200 mg PO BIDM KENDAL Stop: 06/10/23 16:59 Last Admin: 05/12/23 16:17 Dose: 200 mg Atorvastatin Calcium (Atorvastatin 20 Mg Tab) 20 mg PO PM KENDAL Stop: 06/11/23 20:59 Fluticasone Furoate (Fluticasone Furoate 100mcg 14 Puffs/Inhaler) 1 puffs INH DAILY KENDAL Stop: 06/11/23 08:59 Last Admin: 05/12/23 07:40 Dose: 1 puffs Furosemide (Furosemide 20 Mg Tab) 20 mg PO QAM KENDAL Stop: 06/12/23 08:59 Piperacillin Sod/Tazobactam (Sod 4.5 gm/ Dextrose) 100 mls @ 25 mls/hr IV Q8H KENDAL; Protocol Stop: 05/18/23 12:59 Last Admin: 05/12/23 16:17 Dose: 25 mls/hr Potassium Chloride (Potassium Chloride 10 Meq Tabcr) 10 meq PO DAILY KENDAL Stop: 06/12/23 08:59 Umeclidinium/Vilanterol (Umeclidinium/Vilanterol 62.5/25mcg 7 Puffs/Inhaler) 1 puffs INH DAILY KENDAL Stop: 06/11/23 08:59 Last Admin: 05/12/23 07:39 Dose: 1 puffs
[2023-05-12] MEDS: ATORVASTATIN 20 MG TAB PO SCH (21:57)
[2023-05-13 05:26] LABS: Hematocrit (blood only) 26.7 % (42.0-52.0); Hemoglobin 8.8 g/dl (14.0-18.0); Mean Corpuscular Hemoglobin 30.1 pg (25.0-34.0); Mean Corpuscular Volume 91.4 fL (80.0-100.0); Mean Platelet Volume 9.7 fL (9.4-12.4); Platelet Count 253 K/uL (130-400); RDW Coefficient of Variation 16.1 % (11.5-14.5); Red Blood Count 2.92 M/uL (4.70-6.10); White Blood Count 4.07 K/ul (4.8-10.8)
[2023-05-13 05:40] LABS: Calcium 8.2 mg/dl (8.6-10.3); Potassium 3.7 mmol/L (3.5-5.1)
[2023-05-13 05:46] LABS: BUN Creatinine Ratio 16.2 (10-20); Creatinine Clr Calc Pharmacy 59.3 ml/min; Est GFR (African American) 85.4 ml/min; Est GFR (Non-African American) 73.7 ml/min
[2023-05-13 05:56] LABS: Basophils # (auto) 0.05 K/uL (0.00-0.20); Basophils % (auto) 1.2 %; Eosinophils % (auto) 2.5 %; Immature Granulocytes # (auto) 0.37 K/uL (0.01-0.20); Immature Granulocytes % (auto) 9.1 %; Lymphocytes # (auto) 0.82 K/uL (1.20-3.40); Lymphocytes % (auto) 20.1 %; Monocytes # (auto) 1.07 K/uL (0.11-0.59); Monocytes % (auto) 26.3 %; Neutrophils # (auto) 1.66 K/uL (1.40-6.50); Neutrophils % (auto) 40.8 %; Polychromasia 1+
[2023-05-13] MEDS: FUROSEMIDE 20 MG TAB PO SCH (08:53)
[2023-05-13] MEDS: POTASSIUM CHLORIDE 10 MEQ TABCR PO SCH (08:53)
--- NOTE | 2023-05-13 13:21 | Electrocardiogram Report ---
Test Reason : Blood Pressure : / mmHG Vent. Rate : 074 BPM Atrial Rate : 074 BPM P-R Int : 146 ms QRS Dur : 090 ms QT Int : 394 ms P-R-T Axes : 062 -01 035 degrees QTc Int : 437 ms Sinus rhythm with Premature ventricular complexes Otherwise normal ECG When compared with ECG of 21-APR-2023 18:02, Sinus rhythm has replaced Atrial fibrillation Vent. rate has decreased BY 70 BPM Confirmed by Gordo Mcdaniel ([id number]) on 05/13/2023 1:21:28 PM Referred By: Confirmed By:Gordo Mcdaniel
--- NOTE | 2023-05-13 15:04 | Infectious Disease Progress Nt ---
Date of Service May 13, 2023 Assessment & Plan (1) Cavitary lesion of lung: Plan #Lung cavity 6.3 cm LLL #Recent PSA pneumonia 78yo M with h/o metastatic lung cancer on chemo/XRT (gets chemo no port, on carboplatin/paclitaxel since 04/20/23, currently held), PTX after biopsy, COPD, chronic hypoxia, recent admission for PSA bacteremia and multilobar pneumonia with completed therapy on 05/06 who was admitted to hospital new pneumonia. ID consulted for pneumonia in IC patient. Patient was discharged 05/04 and completed treatment with Cefepime on 05/06. Per notes/Patient's mentions that he was seemingly improving on the cefepime, but once the cefepime was completed, he seemed to have a more difficult time breathing. He denies any vomiting of blood, blood from the rectum or significant fevers. Admitted on 05/10 to ICU. Afebrile, 5L NC, soft BPs, CT Chest showed patchy bilateral airspace opacities redemonstrated within a bibasilar prominent distribution suggestive of multifocal pneumonia. Interval development of a focus of cavitary pneumonia within the left lower lobe measuring up to 6.3 cm. Patient started on IV Zosyn, had clinical improvement and stepped down from ICU 05/12/23 BDG, QFT gold aspergillus ag pending, RVP negative, urine histo pending Notably CT Chest on 04/20 showed Patchy bilateral airspace consolidations at the lung bases, RML/lingula c/w multilobar pneumonia DISCUSSION NEW cavity in lung compared to recent CT on 04/20. Suspect this is evolving bacterial cavity secondary to pseudomonas. However other etiologies including malignancy, TB, fungal are on differential. Less likely to be TB as no prior findings and this occured over course of 2+ weeks, suggesting more evolution from bacterial pneumonia. Agree with Zosyn; Follow ancillary fungal testing initiated by ICU QFT gold is pending, but AFB ordered, unclear if unable to make sputum? would ensure induced sputum, as PSA can become resistant Recommend Sputum culture, Please ask RT to help with inducing sputum follow QFT gold Ancillary fungal testing Close imaging follow up with possible bronch if no improvement Keep with Nikolas Barton MD Infectious Diseases Admission and Anticipated Discharge Date Admission Date: May 11, 2023 Subjective Subsequent visit was provided via telemedicine using two-way real-time interactive telecommunication between the patient and the telemedicine provider. For the duration of the visit, the provider was performing the assessment from a different facility than the patient. This includesuse of bluetooth stethoscope forauscultationperformed by the telepresenter that the telemedicine provider can hear if described in the physical exam. [employer] contact information: Please call [facility] [phone]. (Phone Number For Physician Use Only) After establishing a telemedicine visit, patient was: Patient was verified with two unique identifiers, Patient/authorized rep acknowledged consent and understanding and Gave permission to continue telehealth session Time Spent with Patient: Subsequent => 25 min Results & Data Vital Signs (Past 12 Hours) Vital Signs Temp Pulse Pulse Resp BP BP Pulse Ox 05/13/23 11:51 78 05/13/23 11:40 36.7 C 65 20 134/77 98 05/13/23 09:15 05/13/23 09:08 36.6 C 62 17 114/86 94 05/13/23 03:47 93 05/13/23 03:09 36.7 C 05/13/23 03:05 68 18 92 05/13/23 03:05 120/66 O2 Del Method O2 Flow Rate 05/13/23 11:51 05/13/23 11:40 High Flow Nasal Cannula 5 05/13/23 09:15 High Flow Nasal Cannula 5 05/13/23 09:08 High Flow Nasal Cannula 5 05/13/23 03:47 High Flow Nasal Cannula 5 05/13/23 03:09 05/13/23 03:05 Nasal Cannula 8 05/13/23 03:05 Laboratory Results Laboratory Results - last 48 hr 05/11/23 05/11/23 05/12/23 06:38 17:41 00:40 WBC RBC Hgb Hct MCV MCH MCHC RDW Std Deviation RDW Coeff of Fany Plt Count MPV Immature Gran % (Auto) Neut % (Auto) Lymph % (Auto) [place] % (Auto) Eos % (Auto) Baso % (Auto) Neut # (Auto) Lymph # (Auto) [place] # (Auto) Eos # (Auto) Baso # (Auto) Immature Gran # (Auto) Polychromasia PT INR Sodium Potassium Chloride Carbon Dioxide Anion Gap BUN Creatinine Est Cr Clr Drug Dosing Est GFR ( Amer) Est GFR (Non-Af Amer) BUN/Creatinine Ratio Glucose POC Glucose 116 H 103 H Calcium Blood Type A Positive Antibody Screen NEGATIVE Crossmatch See Detail 05/12/23 05/12/23 05/13/23 06:04 11:50 04:47 WBC 3.68 L 4.07 L RBC 2.95 L 2.92 L Hgb 9.0 L 8.8 L Hct 26.4 L 26.7 L MCV 89.5 91.4 MCH 30.5 30.1 MCHC 34.1 33.0 RDW Std Deviation 53.2 H 53.0 H RDW Coeff of Fany 16.4 H 16.1 H Plt Count 234 253 MPV 9.7 9.7 Immature Gran % (Auto) 6.0 9.1 Neut % (Auto) 45.1 40.8 Lymph % (Auto) 16.8 20.1 [place] % (Auto) 29.1 26.3 Eos % (Auto) 1.9 2.5 Baso % (Auto) 1.1 1.2 Neut # (Auto) 1.66 1.66 Lymph # (Auto) 0.62 L 0.82 L [place] # (Auto) 1.07 H 1.07 H Eos # (Auto) 0.07 0.10 Baso # (Auto) 0.04 0.05 Immature Gran # (Auto) 0.22 H 0.37 H Polychromasia 1+ 1+ PT 11.6 INR 1.1 Sodium 136 136 Potassium 3.9 3.7 Chloride 102 104 Carbon Dioxide 29 26 Anion Gap 5 6 BUN 22 16 Creatinine 1.01 0.99 Est Cr Clr Drug Dosing 58.2 59.3 Est GFR ( Amer) 83.4 85.4 Est GFR (Non-Af Amer) 71.9 73.7 BUN/Creatinine Ratio 21.8 H 16.2 Glucose 88 92 POC Glucose 140 H Calcium 8.1 L 8.2 L Blood Type Antibody Screen Crossmatch
--- NOTE | 2023-05-13 16:12 | Pulmonology Progress Note ---
Date of Service May 13, 2023 Assessment & Plan (1) Cavitary lesion of lung: (2) PAF (paroxysmal atrial fibrillation): (3) Chronic systolic CHF (congestive heart failure): (4) Acute blood loss anemia: (5) Acute HFrEF (heart failure with reduced ejection fraction): (6) Chronic obstructive pulmonary disease: COPD type: emphysema Emphysema type: centrilobular Qualified Code(s): J43.2 - Centrilobular emphysema Plan 78-year-old male with stage IIIb adenocarcinoma of the lung status post chemoradiation therapy presenting to the hospital for recurrent pneumonia. Previous hospitalization was found to have Pseudomonas bacteremia. Now with left lower lobe cavitary lesion. Hemoptysis has largely resolved. Symptoms slowly improving. Oxygen requirements have improved. Will proceed with bronchoscopy tomorrow morning to evaluate for infectious etiology. Patient understands risk and benefits and consents. Will keep n.p.o. at midnight. Continue broad-spectrum antibiotics. Appreciate ID involvement. Admission and Anticipated Discharge Date Admission Date: May 11, 2023 Subjective Patient denies any further hemoptysis. Shortness of breath is improving along with appetite. Requires 5 L of oxygen at this time to maintain sats in the 90s. Review of Systems Review of Systems: All systems reviewed & are unremarkable except as noted in HPI & below Physical Exam Physical Exam: Constitutional: chronically ill appearing, NAD HEENT: NCAT, scab in L nare, several lesions on the soft/hard palate, erythema surrounding this region CV: regular rhythm, no murmur appreciated, extremities well-perfused, 2+ pitting edema bilaterally Resp: globally decreased breath sounds, no wheeze GI: soft, nondistended, nontender, BS normoactive MSK: no gross deformities appreciated Skin: warm, dry, no rash appreciated Neuro: alert, oriented, no focal neurologic deficit appreciated Results & Data Results & Data Vital Signs (Past 12 Hours) Vital Signs Temp Pulse Pulse Resp BP Pulse Ox O2 Del Method 05/13/23 11:51 78 05/13/23 11:40 36.7 C 65 20 134/77 98 High Flow Nasal Cannula 05/13/23 09:15 High Flow Nasal Cannula 05/13/23 09:08 36.6 C 62 17 114/86 94 High Flow Nasal Cannula O2 Flow Rate 05/13/23 11:51 05/13/23 11:40 5 05/13/23 09:15 5 05/13/23 09:08 5 PG Care Time/CCT Total # of Minutes Spent Total Time Spent with Patient: Total time spent is greater than 50% in coordination of care (as documented) at patient's floor/unit and/or counseling patient: Coding Level of Care Code 60086 SUB INP/OBS CARE 2/35MIN Diagnoses Cavitary lesion of lung J98.4 PAF (paroxysmal atrial fibrillation) I48.0 Chronic systolic CHF (congestive heart failure) I50.22 Acute blood loss anemia D62 Acute HFrEF (heart failure with reduced ejection fraction) I50.21 Centrilobular emphysema J43.2 COPD type: emphysema Emphysema type: centrilobular
--- NOTE | 2023-05-13 18:11 | Hospitalist Progress Note ---
Date of Service May 13, 2023 Assessment & Plan (1) Cavitary lesion of lung: Plan: 6.3cm, LLL - NEW in comparison to previous CT chest (last CT was 04/21/23), presented with major hemoptysis treated with TXA, anticoagulation stopped he just finished a prolonged course of IV cefepime 3 days ago at his home for pseudomonas pneumonia discussed with ID - thought most likely cavitary lesion related to evolution of previous (severe) RLL pseudomonas pneumonia with consolidation in same location on previous CT. Concern that pseudomonas may quickly develop resistance so sputum sample would be extremely helpful. Discussed with RT who is attempting induced sputum, otherwise is NPO after midnight for possible bronch if unsuccessful. TB unlikely since cavity developed only over 2 weeks so QF gold would be adequate testing. Also underlying lung cancer, which if progressive could cause hemoptysis and cavitary lesion. cont airborne isolation for now though probably unnecessary induced sputum for culture, possible bronch continue pip-tazo, nasal MRSA neg quantiferon gold test, galactomannan, B-1,3-D-glucan pending PCU status (2) Acute and chronic respiratory failure with hypoxia: Plan: Improved, related to hemoptysis and aspirated blood no evidence of superimposed pulmonary edema despite his LE edema and mild systolic CHF on prior echo dated 04/22/23 no evidence of PE on imaging chronic resp failure is 2nd to COPD, lung ca, recent extensive pneumonia, etc has been on 4-5L - clarified with RN not actually on HF, just continuing to use HF cannula typically on 3L NC O2 at rest, 6L NC O2 with activity (3) Blood in mouth of unknown source: Plan: Major hemoptysis related to cavitary lung lesion - see above -aspirin and DOAC were stopped -improved -see above (4) Multifocal pneumonia: Plan: had such during his prior hospitalization in 04/2023 complicated by chemo-induced pancytopenia and septic shock continues with radiographic evidence of b/l pneumonia despite recent 14-day course of IV cefepime for presumed pseudomonas now with left-sided cavitary lesion - see above (5) Acute blood loss anemia: Plan: 2nd to #3 his BPs are low or low-normal cortisol level is >20 transfused 1 unit RBCs 05/10 with some increase in Hg. Adequate today at >8 (6) Chronic systolic CHF (congestive heart failure): Plan: echo 04/2023 - EF 45-50% was going to follow with [facility] [place] [facility] after recent hospitalization he has considerable LE edema on exam he had such during prior hospitalization and was diuresed during that recent stay his edema persists despite use of daily lasix at home low albumin of 2.5 is contributing to his edema as well resumed oral lasix (7) PAF (paroxysmal atrial fibrillation): Plan: diagnosed with such in the ICU during prior hospitalization needed IV amiodarone during that stay with conversion to NSR discharged on Eliquis + amiodarone Eliquis now on hold due to the presumed hemoptysis/bleeding he had overnight at home cont amiodarone to maintain NSR (8) Abnormal LFTs: Plan: seen during the prior hospitalization LFTs remain mildly high but stable (9) Adenocarcinoma of left lung, stage 3: Plan: dx 01/2023 stage 3a s/p radiation along with chemotherapy last chemo - 04/20/23 - carboplatin/paclitaxel follows with Dr Ro[facility] (10) History of abdominal aortic aneurysm repair: Plan: 2015 (11) Chronic obstructive pulmonary disease: Plan: with resulting chronic hypoxic resp failure on home O2 prior heavy tobacco dependence cont home inhalers (12) DVT prophylaxis: Plan: SCDs only chemoprophylaxis contraindicated due to acute bleeding Eliquis on hold Plan pt's updated at bedside 05/10 pt requests full code status prognosis is guarded in light of fragile status, new cavitary lesion, active bleeding, etc - all in the midst of lung ca Admission and Anticipated Discharge Date Admission Date: May 11, 2023 Subjective no further significant hemoptysis. has not been able to produce enough sputum for culture thus far. suctioning some pink-tinged continued with cough and hypoxia mildly worse than recent baseline Physical Exam 2 Physical Exam: PHYSICAL EXAMINATION Last 24h vital signs reviewed, see documentation in flowsheet General: comfortable appearing, no distress, pale appearing, sitting up in chair HEENT: Normocephalic, atraumatic, pupils round and equal, sclerae anicteric, no conjunctival injection, moist mucus membranes Lungs: Normal respiratory effort. coarse in bases. diminished on R. pink sputum in suction, no change in lung exam Heart: Regular rate and rhythm, no murmurs. No JVD Abdomen: Soft, nontender, nondistended. Bowel sounds present. Extremities: Warm, dry, well-perfused. 2+ extremity edema shins on down. Neuro: Alert and oriented x 4, face symmetric, moves 4 extremities well Psych: Normal affect and behavior Results & Data Results & Data Vital Signs (Past 12 Hours) Vital Signs Temp Pulse Pulse Resp BP Pulse Ox O2 Del Method 05/13/23 16:42 36.6 C 78 17 121/72 93 Nasal Cannula 05/13/23 11:51 78 05/13/23 11:40 36.7 C 65 20 134/77 98 High Flow Nasal Cannula 05/13/23 09:15 High Flow Nasal Cannula 05/13/23 09:08 36.6 C 62 17 114/86 94 High Flow Nasal Cannula O2 Flow Rate 05/13/23 16:42 5 05/13/23 11:51 05/13/23 11:40 5 05/13/23 09:15 5 05/13/23 09:08 5 Laboratory Results 05/13/23 04:47 05/13/23 04:47 PG Care Time/CCT Total # of Minutes Spent Total Time Spent with Patient: Total time spent is greater than 50% in coordination of care (as documented) at patient's floor/unit and/or counseling patient: Coding Level of Care Code 46450 SUB INP/OBS CARE 3/50MIN Diagnoses Cavitary lesion of lung J98.4 Acute and chronic respiratory failure with hypoxia J96.21 Blood in mouth of unknown source K13.79 Multifocal pneumonia J18.9 Acute blood loss anemia D62 Chronic systolic CHF (congestive heart failure) I50.22 PAF (paroxysmal atrial fibrillation) I48.0 Abnormal LFTs R79.89 Adenocarcinoma of left lung, stage 3 C34.92 History of abdominal aortic aneurysm repair Z98.890 Centrilobular emphysema J43.2 COPD type: emphysema Emphysema type: centrilobular DVT prophylaxis Z29.9 (11) 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
[2023-05-13] MEDS: SODIUM CHLOR 7% 4 ML NEB NEB SCH (20:18)
[2023-05-14 04:56] LABS: Hematocrit (blood only) 27.1 % (42.0-52.0); Hemoglobin 8.7 g/dl (14.0-18.0); Mean Corpuscular Hemoglobin 29.7 pg (25.0-34.0); Mean Corpuscular Hgb Conc 32.1 g/dL (32.0-36.0); Mean Corpuscular Volume 92.5 fL (80.0-100.0); Mean Platelet Volume 9.6 fL (9.4-12.4); Platelet Count 270 K/uL (130-400); RDW Coefficient of Variation 15.8 % (11.5-14.5); RDW Standard Deviation 51.8 fL (36.4-46.3); Red Blood Count 2.93 M/uL (4.70-6.10); White Blood Count 4.85 K/ul (4.8-10.8)
[2023-05-14 05:09] LABS: BUN Creatinine Ratio 14.5 (10-20); Calcium 8.2 mg/dl (8.6-10.3); Creatinine Clr Calc Pharmacy 53.4 ml/min; Est GFR (African American) 75.2 ml/min; Est GFR (Non-African American) 64.9 ml/min; Potassium 3.4 mmol/L (3.5-5.1)
[2023-05-14 05:56] LABS: ALC (manual) 0.73 K/uL (1.2-3.4); ANC (manual) 1.99 K/uL (1.4-6.5); Basophils # (manual) 0.15 K/uL (0-0.2); Basophils % (manual) 3 %; Eosinophils # (manual) 0.19 K/uL (0-0.50); Eosinophils % (manual) 4 %; Lymphocytes # (manual) 0.73 K/uL (1.2-3.4); Lymphocytes % (manual) 15 %; Metamyelocytes # (manual) 0.15 K/uL (0-0); Metamyelocytes % (manual) 3 %; Monocytes # (manual) 1.31 K/uL (0.11-0.59); Monocytes % (manual) 27 %; Myelocytes # (manual) 0.34 K/uL (0-0); Myelocytes % (manual) 7 %; Neutrophils # (manual) 1.99 K/uL (1.40-6.50); Neutrophils % (manual) 41 %; Polychromasia 1+
--- NOTE | 2023-05-14 08:26 | History & Physical Bridge Note ---
Date of Service May 14, 2023 History & Physical Bridge Note I have examined the patient, reviewed the History & Physical and in the interval since the performance of the History & Physical I have noted the following changes of clinical significance: no changes noted
--- NOTE | 2023-05-14 08:28 | Pre Anesthesia Assessment ---
Date of Service May 14, 2023 Pre Sedation Assessment Vital Signs Temp Pulse Pulse Resp BP BP Pulse Ox 05/14/23 07:25 70 20 91 05/14/23 01:00 36.6 C 57 L 16 104/61 92 05/13/23 22:45 68 05/13/23 22:32 36.6 C 66 18 112/59 L 95 05/13/23 21:00 36.6 C 88 22 104/61 92 05/13/23 20:22 82 20 96 05/13/23 20:11 05/13/23 19:00 36.6 C 69 18 121/61 93 05/13/23 18:50 72 05/13/23 18:16 76 05/13/23 16:42 36.6 C 78 17 121/72 93 05/13/23 11:51 78 05/13/23 11:40 36.7 C 65 20 134/77 98 05/13/23 09:15 05/13/23 09:08 36.6 C 62 17 114/86 94 O2 Del Method O2 Flow Rate 05/14/23 07:25 Nasal Cannula 5 05/14/23 01:00 High Flow Nasal Cannula 5 05/13/23 22:45 05/13/23 22:32 High Flow Nasal Cannula 5 05/13/23 21:00 Nasal Cannula 5 05/13/23 20:22 Nasal Cannula 5 05/13/23 20:11 High Flow Nasal Cannula 5 05/13/23 19:00 Nasal Cannula 5 05/13/23 18:50 05/13/23 18:16 05/13/23 16:42 Nasal Cannula 5 05/13/23 11:51 05/13/23 11:40 High Flow Nasal Cannula 5 05/13/23 09:15 High Flow Nasal Cannula 5 05/13/23 09:08 High Flow Nasal Cannula 5 Cardiovascular RRR, no murmur, no edema + regular rate and + regular rhythm + S1 normal and + S2 normal + PMI normal no JVD Respiratory + cough, + respiratory pattern abnormal and + prolonged expiratory phase; no respiratory distress and no labored breathing Pre-Sedation Airway Assessment Smoking Status: Former smoker Hx Sleep Apnea: No Hx Difficult Intubation: No Short, Thick Neck: No Thyromental Distance: > or= 3.5 Finger Breadths Oral Cavity: + WNL Mallampati Class: II NPO Status Date of Last Intake of Fluids: 05/13/23 Time of Last Intake of Fluids: 12:00 Date of Last Intake of Solid Food: 05/14/23 Procedure Planning Contraindications for Sedation: none Current Medications Reviewed: Yes Notes The planned sedation has been discussed with the patient. Informed Consent was obtained. I have identified the patient, determined the appropriateness of sedation and have assessed the patient immediately prior to the procedure. All medicine(s) and interventions are by my order.
[2023-05-14] MEDS: MIDAZOLAM HCL 1 MG/ML 2ML VIAL ONE (08:54)
[2023-05-14] MEDS: fentaNYL citrate PF 100 MCG/2 ML VIAL ONE ×2 (08:54→09:39)
--- NOTE | 2023-05-14 09:15 | Post Anesthesia Assessment ---
Date of Service May 14, 2023 Post Sedation Assessment Vital Signs Temp Pulse Pulse Resp BP BP Pulse Ox 05/14/23 07:25 70 20 91 05/14/23 01:00 36.6 C 57 L 16 104/61 92 05/13/23 22:45 68 05/13/23 22:32 36.6 C 66 18 112/59 L 95 05/13/23 21:00 36.6 C 88 22 104/61 92 05/13/23 20:22 82 20 96 05/13/23 20:11 05/13/23 19:00 36.6 C 69 18 121/61 93 05/13/23 18:50 72 05/13/23 18:16 76 05/13/23 16:42 36.6 C 78 17 121/72 93 05/13/23 11:51 78 05/13/23 11:40 36.7 C 65 20 134/77 98 05/13/23 09:15 O2 Del Method O2 Flow Rate 05/14/23 07:25 Nasal Cannula 5 05/14/23 01:00 High Flow Nasal Cannula 5 05/13/23 22:45 05/13/23 22:32 High Flow Nasal Cannula 5 05/13/23 21:00 Nasal Cannula 5 05/13/23 20:22 Nasal Cannula 5 05/13/23 20:11 High Flow Nasal Cannula 5 05/13/23 19:00 Nasal Cannula 5 05/13/23 18:50 05/13/23 18:16 05/13/23 16:42 Nasal Cannula 5 05/13/23 11:51 05/13/23 11:40 High Flow Nasal Cannula 5 05/13/23 09:15 High Flow Nasal Cannula 5 Recovery Score Activity: Moves 4 extremities Respiration: Deep Breath/Cough Circulation: +/-20-49% PreAnes Value Consciousness: Fully Awake Oxygen Saturation: O2 needed for >90% Discharge Sedation Level of Care: Fast Track Phase II Post Sedation Plan On clinical assessment, the patient appears to have tolerated the sedation without complications. Patient is recovering as anticipated. Patient will continue to be monitored by nursing and may be discharged when sedation discharge criteria are met per below protocol. Upon Completions of procedure up to 15 minutes continue every 5 minute vital signs and the P.A.R. score; then discharge to a Phase I or Fast Track to Phase II per the following guidelines: * Discharge Patient to appropriate Phase II area if PAR is 8 or greater or return to pre- procedure baseline. The post - procedure orders will be as directed. * If PAR score is less than 8 or not return to pre-procedure baseline then patient will follow Phase I monitoring till PAR is reached for Phase II. The Phase I may be done in procedure room or may call to secure a Phase I area. * If naloxone or flumazenil are used for reversal, hold in Phase I for continued monitoring from when last reversal dose was given for a minimum of 60 minutes or longer pending the nurse and/or physician discretion of patient condition before discharge to Phase II. Please call the Sedation Physician to re-evaluate and complete post-note for discharge to Phase II area. Do NOT discharge from procedure sedation or Phase 1 until post- sedation evaluation note is complete by procedure /sedation MD Sedation Discharge Instructions to be given to the patient at discharge to home.
[2023-05-14 09:17] LABS: Quantiferon NIL 0.02 IU/mL; Quantiferon TB Gold Plus NEGATIVE (NEGATIVE)
--- NOTE | 2023-05-14 09:20 | Procedure Note ---
Procedure Note: Bronchoscopy Procedure PREOPERATIVE DIAGNOSIS: Left lower lobe cavitary lesion POSTOPERATIVE DIAGNOSIS: Left lower lobe cavitary lesion PROCEDURE PERFORMED: Flexible fiberoptic bronchoscopy with bronchial washings from left lower lobe COMPLICATIONS: None. INDICATION: Rule out chronic infection PROCEDURE: After obtaining an informed consent, the patient was brought to the Bronchoscopy Suite. The patient had appropriate oxygen, blood pressure, heart rate, and respiratory rate monitoring applied and monitored continuously throughout the procedure. Supplemental oxygen via nasal cannula as per nursing records was applied to the nasopharynx with adequate saturations achieved. Topical anesthesia with nebulized 1% lidocaine was achieved. Subsequent to this, the patient was premedicated with 3 mg of midazolam and 100 mcg of fentanyl. Bronchoscope was inserted via the oral cavity. Blood was noted in the oral ca vity with no clear evidence of ulcerations. Epiglottis was visualized and appeared normal. Vocal cords visualized and appear to be moving normally, but there was nodular irregularity on the bilateral vocal cords noted. Scope was passed through the vocal cords after lidocaine was applied over top of the epiglottis and vocal cords. Trachea appeared normal. Terry appeared sharp. Bilateral tracheobronchial tree inspection was performed. No endobronchial lesions was noted. Thin secretions noted in the left lower lobe. 100 mL of saline was instilled in the left lower lobe and sequential aliquots in approximately 40 mL was aspirated back. Scope was then withdrawn to the level of the terry. No bleeding was seen. Scope was then completely withdrawn. Patient tolerated the procedure well. Recommendations: - Nodularity noted on the bilateral vocal cords, possibly sequelae of candidiasis. Will start nystatin swish and swallow. - Bronchial washings performed to the left lower lobe and will be sent for fungal studies, AFB cultures and cytology. [facility] [place] Procedure Codes (Charges) Pulmonary/Thoracic Procedure 1: Pulmonary and Thoracic: 05406 Dx bronchoscopy/wash
[2023-05-14 12:12] LABS: Fluid Mono/Macrophage 4 %; Lymphocyte Body Fluid Man 7 %; Neutrophil Body Fluid Man 89 %
[2023-05-14 12:14] LABS: Fluid Epithelial Cell 1 %
--- NOTE | 2023-05-14 12:16 | Pulmonology Progress Note ---
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 Previous hospitalization was found to have Pseudomonas bacteremia. Now with left lower lobe cavitary lesion. Status post bronchoscopy today. No evidence of bleeding on bronchoscopy. Washings performed from the left lower lobe and sent for cultures and cytology. QuantiFERON gold came back negative. Likelihood of TB is very low at this point. Will await AFB smear from bronchoscopy prior to discontinuing airborne isolation. I do not think the source of his hemoptysis was from his lungs. I suspect the hemoptysis was either from sinus drainage for an ulceration in his mouth. I suspect the left lower lobe cavitary lesion is likely related to evolving pseudomonal pneumonia. He also appears to have nodularity on his vocal cords and I recommend an ENT consultation given this finding and his weak voice. Will start nystatin swish and swallow for possible fungal infection. Will discontinue ICS inhaler due to recurrent pneumonia and possible fungal infection on vocal cords. Appreciate ID consultation. Will continue to follow along with you. Admission and Anticipated Discharge Date Admission Date: May 11, 2023 Subjective His oxygen requirements have improved. Perform endoscopy today and he tolerated this well. No further hemoptysis. Review of Systems Review of Systems: All systems reviewed & are unremarkable except as noted in HPI & below Physical Exam Physical Exam: Constitutional: chronically ill appearing, NAD HEENT: NCAT, scab in L nare, several lesions on the soft/hard palate, erythema surrounding this region CV: regular rhythm, no murmur appreciated, extremities well-perfused, 2+ pitting edema bilaterally Resp: globally decreased breath sounds, no wheeze GI: soft, nondistended, nontender, BS normoactive MSK: no gross deformities appreciated Skin: warm, dry, no rash appreciated Neuro: alert, oriented, no focal neurologic deficit appreciated Results & Data Results & Data Vital Signs (Past 12 Hours) Vital Signs Temp Pulse Pulse Resp BP BP Pulse Ox 05/14/23 09:24 111/69 05/14/23 09:24 84 19 93 05/14/23 09:22 115/64 05/14/23 09:22 85 22 93 05/14/23 09:20 88 26 H 93 05/14/23 09:20 114/70 05/14/23 09:19 79 20 93 05/14/23 09:19 119/61 05/14/23 09:16 107/67 05/14/23 09:16 83 17 92 05/14/23 09:14 115/65 05/14/23 09:14 84 16 91 05/14/23 09:12 82 26 H 90 05/14/23 09:12 117/63 05/14/23 09:10 115/67 05/14/23 09:10 81 15 91 05/14/23 09:08 124/87 05/14/23 09:08 84 18 95 05/14/23 09:06 119/69 05/14/23 09:06 82 15 93 05/14/23 09:04 135/72 05/14/23 09:04 80 16 88 L 05/14/23 09:03 88 22 88 L 05/14/23 09:03 134/66 05/14/23 09:00 05/14/23 09:00 139/74 05/14/23 09:00 68 13 99 05/14/23 08:58 56 L 17 98 05/14/23 08:58 144/68 H 05/14/23 08:56 137/67 05/14/23 08:56 58 L 17 99 05/14/23 08:54 144/70 H 05/14/23 08:54 57 L 16 98 05/14/23 08:53 58 L 22 99 05/14/23 08:53 151/69 H 05/14/23 08:52 60 21 99 05/14/23 08:50 136/72 05/14/23 08:50 61 18 90 05/14/23 08:48 65 21 87 L 05/14/23 08:48 130/72 05/14/23 08:46 63 23 90 05/14/23 08:44 57 L 18 91 05/14/23 08:43 66 17 92 04/04/24 08:42 52 L 18 90 05/14/23 08:41 54 L 19 90 05/14/23 08:40 61 19 93 05/14/23 08:39 58 L 19 92 05/14/23 08:38 55 L 19 94 05/14/23 08:37 52 L 19 92 05/14/23 08:36 56 L 16 90 05/14/23 08:35 55 L 18 89 L 05/14/23 08:34 54 L 18 90 05/14/23 08:33 59 L 19 91 05/14/23 08:32 59 L 21 86 L 05/14/23 08:31 66 22 91 05/14/23 08:30 56 L 22 90 05/14/23 08:29 56 L 20 89 L 05/14/23 08:28 57 L 22 92 05/14/23 08:27 55 L 19 89 L 05/14/23 08:26 60 17 90 05/14/23 08:25 26 H 87 L 05/14/23 08:24 62 20 86 L 05/14/23 08:23 15 87 L 05/14/23 08:22 105 H 16 86 L 05/14/23 08:21 80 18 88 L 05/14/23 08:20 60 17 87 L 05/14/23 08:19 71 22 90 05/14/23 08:18 59 L 17 90 05/14/23 08:17 68 18 91 05/14/23 08:16 61 19 86 L 05/14/23 08:15 63 17 92 05/14/23 08:14 56 L 16 90 05/14/23 08:13 60 18 93 05/14/23 08:12 60 18 93 05/14/23 08:11 66 21 85 L 05/14/23 08:10 62 22 88 L 05/14/23 08:09 59 L 19 89 L 05/14/23 08:08 57 L 17 88 L 05/14/23 08:07 58 L 22 89 L 05/14/23 08:06 60 23 89 L 05/14/23 08:05 57 L 19 89 L 05/14/23 08:04 60 22 87 L 05/14/23 08:03 60 14 88 L 05/14/23 08:02 60 16 89 L 05/14/23 08:01 61 30 H 87 L 05/14/23 08:00 63 05/14/23 08:00 63 22 88 L 05/14/23 07:25 70 20 91 05/14/23 01:00 36.6 C 57 L 16 104/61 92 O2 Del Method O2 Flow Rate 05/14/23 09:24 05/14/23 09:24 05/14/23 09:22 05/14/23 09:22 05/14/23 09:20 05/14/23 09:20 05/14/23 09:19 05/14/23 09:19 05/14/23 09:16 05/14/23 09:16 05/14/23 09:14 05/14/23 09:14 05/14/23 09:12 05/14/23 09:12 05/14/23 09:10 05/14/23 09:10 05/14/23 09:08 05/14/23 09:08 05/14/23 09:06 05/14/23 09:06 05/14/23 09:04 05/14/23 09:04 05/14/23 09:03 05/14/23 09:03 05/14/23 09:00 High Flow Nasal Cannula 05/14/23 09:00 05/14/23 09:00 05/14/23 08:58 05/14/23 08:58 05/14/23 08:56 05/14/23 08:56 05/14/23 08:54 05/14/23 08:54 05/14/23 08:53 05/14/23 08:53 05/14/23 08:52 05/14/23 08:50 05/14/23 08:50 05/14/23 08:48 05/14/23 08:48 05/14/23 08:46 05/14/23 08:44 05/14/23 08:43 05/14/23 08:42 05/14/23 08:41 05/14/23 08:40 05/14/23 08:39 05/14/23 08:38 05/14/23 08:37 05/14/23 08:36 05/14/23 08:35 05/14/23 08:34 05/14/23 08:33 05/14/23 08:32 05/14/23 08:31 05/14/23 08:30 05/14/23 08:29 05/14/23 08:28 05/14/23 08:27 05/14/23 08:26 05/14/23 08:25 05/14/23 08:24 05/14/23 08:23 05/14/23 08:22 05/14/23 08:21 05/14/23 08:20 05/14/23 08:19 05/14/23 08:18 05/14/23 08:17 05/14/23 08:16 05/14/23 08:15 05/14/23 08:14 05/14/23 08:13 05/14/23 08:12 05/14/23 08:11 05/14/23 08:10 05/14/23 08:09 05/14/23 08:08 05/14/23 08:07 05/14/23 08:06 05/14/23 08:05 05/14/23 08:04 05/14/23 08:03 05/14/23 08:02 05/14/23 08:01 05/14/23 08:00 05/14/23 08:00 05/14/23 07:25 Nasal Cannula 5 05/14/23 01:00 High Flow Nasal Cannula 5 PG Care Time/CCT Total # of Minutes Spent Total Time Spent with Patient: Total time spent is greater than 50% in coordination of care (as documented) at patient's floor/unit and/or counseling patient: Coding Level of Care Code 09415 SUB INP/OBS CARE 2/35MIN Diagnoses Cavitary lesion of lung J98.4 PAF (paroxysmal atrial fibrillation) I48.0 Chronic systolic CHF (congestive heart failure) I50.22 Acute blood loss anemia D62 Acute HFrEF (heart failure with reduced ejection fraction) I50.21 Centrilobular emphysema J43.2 COPD type: emphysema Emphysema type: centrilobular Weakness of voice R49.8
[2023-05-14] MEDS: NYSTATIN SUSP 500,000 U/5 ML UDC PO SCH (13:57)
[2023-05-14] MEDS: POTASSIUM CHLORIDE CRTAB 20 MEQ TABCR PO ONE (13:57)
--- NOTE | 2023-05-14 16:43 | Hospitalist Progress Note ---
Date of Service May 14, 2023 Assessment & Plan (1) Cavitary lesion of lung: Plan: 6.3cm, LLL - NEW in comparison to previous CT chest (last CT was 04/21/23), presented with major hemoptysis treated with TXA, anticoagulation stopped. Bleeding from pulmonary hemorrhage vs swallowed and aspirated blood from posterior nosebleed? He gave no history of nosebleed but his reports he had NT suctioning during last admission. he just finished a prolonged course of IV cefepime 3 days ago at his home for pseudomonas pneumonia discussed with ID - thought most likely cavitary lesion related to evolution of previous (severe) pseudomonas pneumonia with consolidation in same location LLL on previous CT. Concern that pseudomonas may quickly develop resistance so sputum sample would be extremely helpful. TB unlikely since cavity developed only over 2 weeks so QF gold would be adequate testing. Also underlying lung cancer, which if progressive could cause hemoptysis and cavitary lesion. Underwent bronchoscopy 05/[address] Khan had blood back of throat but no blood seen in lung cont airborne isolation for now though probably unnecessary sputum from 05/12 with GNR follow bronch BAL results continue pip-tazo, nasal MRSA neg quantiferon gold test, galactomannan, B-1,3-D-glucan pending PCU status (2) Acute and chronic respiratory failure with hypoxia: Plan: Improved, related to hemoptysis and aspirated blood, ongoing pneumonia? no evidence of superimposed pulmonary edema despite his LE edema and mild systolic CHF on prior echo dated 04/22/23 no evidence of PE on imaging chronic resp failure is 2nd to COPD, lung ca, recent extensive pneumonia, etc has been on 4-5L - clarified with RN not actually on HF, just continuing to use HF cannula typically on 3L NC O2 at rest, 6L NC O2 with activity (3) Blood in mouth of unknown source: Plan: -see above -aspirin and DOAC were stopped (4) Multifocal pneumonia: Plan: had such during his prior hospitalization in 04/2023 complicated by chemo-induced pancytopenia and septic shock continues with radiographic evidence of b/l pneumonia despite recent 14-day course of IV cefepime for presumed pseudomonas now with left-sided cavitary lesion - see above (5) Acute blood loss anemia: Plan: 2nd to #3 his BPs are low or low-normal cortisol level is >20 transfused 1 unit RBCs 05/10 with some increase in Hg. Adequate today at >8 (6) Chronic systolic CHF (congestive heart failure): Plan: echo 04/2023 - EF 45-50% was going to follow with [facility] [place] [facility] clinic after recent hospitalization he has considerable LE edema on exam he had such during prior hospitalization and was diuresed during that recent stay his edema persists despite use of daily lasix at home low albumin of 2.5 is contributing to his edema as well resumed oral lasix (7) PAF (paroxysmal atrial fibrillation): Plan: diagnosed with such in the ICU during prior hospitalization needed IV amiodarone during that stay with conversion to NSR discharged on Eliquis + amiodarone Eliquis now on hold due to the presumed hemoptysis/bleeding he had overnight at home cont amiodarone to maintain NSR (8) Abnormal LFTs: Plan: seen during the prior hospitalization LFTs remain mildly high but stable (9) Adenocarcinoma of left lung, stage 3: Plan: dx 01/2023 stage 3a s/p radiation along with chemotherapy last chemo - 04/20/23 - carboplatin/paclitaxel follows with Dr Roque[facility] (10) History of abdominal aortic aneurysm repair: Plan: 2016 (11) Chronic obstructive pulmonary disease: Plan: severe emphysema on CTs with resulting chronic hypoxic resp failure on home O2 prior heavy tobacco dependence cont home inhalers (12) DVT prophylaxis: Plan: SCDs only chemoprophylaxis contraindicated due to acute bleeding Eliquis on hold Plan replaced mild hypokalemia po 05/13 pt's updated at bedside 05/10, 05/13 Admission and Anticipated Discharge Date Admission Date: May 11, 2023 Subjective had bronchoscopy this am tolerated well remains on more O2 than recent baseline. cough/dyspnea unchanged. had blood back of throat on bronch but no blood seen in lung Physical Exam 2 Physical Exam: PHYSICAL EXAMINATION Last 24h vital signs reviewed, see documentation in flowsheet General: comfortable appearing, no distress, pale appearing, sitting up in chair HEENT: Normocephalic, atraumatic, pupils round and equal, sclerae anicteric, no conjunctival injection, moist mucus membranes Lungs: Normal respiratory effort. coarse in bases. diminished on R. air movement overall improved Heart: Regular rate and rhythm, no murmurs. No JVD Abdomen: Soft, nontender, nondistended. Bowel sounds present. Extremities: Warm, dry, well-perfused. 2+ extremity edema shins on down improved?. Neuro: Alert and oriented x 4, face symmetric, moves 4 extremities well Psych: Normal affect and behavior Results & Data Results & Data Vital Signs (Past 12 Hours) Vital Signs Pulse Pulse Resp BP Pulse Ox O2 Del Method O2 Flow Rate 05/14/23 14:00 103 H 22 84 L 05/14/23 13:00 67 23 96 05/14/23 12:00 66 18 95 05/14/23 11:00 61 26 H 93 05/14/23 10:46 59 L 17 91 05/14/23 10:46 126/58 L 05/14/23 10:43 108/59 L 05/14/23 10:43 75 22 78 L 05/14/23 10:40 129/84 05/14/23 10:40 56 L 21 98 05/14/23 10:39 131/65 05/14/23 10:39 60 19 97 05/14/23 10:37 56 L 16 98 05/14/23 10:37 124/67 05/14/23 10:35 62 18 98 05/14/23 10:35 124/59 L 05/14/23 10:32 60 17 98 05/14/23 10:32 121/66 05/14/23 10:30 119/88 05/14/23 10:30 60 19 97 05/14/23 10:28 103/65 05/14/23 10:28 65 24 98 05/14/23 10:26 55 L 15 98 05/14/23 10:26 121/63 05/14/23 10:24 122/63 05/14/23 10:24 68 17 99 05/14/23 10:22 115/66 05/14/23 10:22 59 L 17 96 05/14/23 10:20 114/63 05/14/23 10:20 28 H 98 05/14/23 10:18 113/65 05/14/23 10:18 69 18 98 05/14/23 10:16 59 L 15 98 05/14/23 10:16 119/67 05/14/23 10:14 58 L 18 96 05/14/23 10:14 123/64 05/14/23 10:12 121/64 05/14/23 10:12 62 21 95 05/14/23 10:11 64 18 95 05/14/23 10:11 116/63 05/14/23 10:08 71 14 94 05/14/23 10:08 121/61 05/14/23 10:06 118/66 05/14/23 10:06 67 18 97 05/14/23 10:04 124/64 05/14/23 10:04 60 19 98 05/14/23 10:02 69 19 99 05/14/23 10:02 126/64 05/14/23 10:01 60 20 99 05/14/23 10:01 140/64 05/14/23 09:24 111/69 05/14/23 09:24 84 19 93 05/14/23 09:22 115/64 05/14/23 09:22 85 22 93 05/14/23 09:20 88 26 H 93 05/14/23 09:20 114/70 05/14/23 09:19 79 20 93 05/14/23 09:19 119/61 05/14/23 09:16 107/67 05/14/23 09:16 83 17 92 05/14/23 09:14 115/65 05/14/23 09:14 84 16 91 05/14/23 09:12 82 26 H 90 05/14/23 09:12 117/63 05/14/23 09:10 115/67 05/14/23 09:10 81 15 91 05/14/23 09:08 124/87 05/14/23 09:08 84 18 95 05/14/23 09:06 119/69 05/14/23 09:06 82 15 93 05/14/23 09:04 135/72 05/14/23 09:04 80 16 88 L 05/14/23 09:03 88 22 88 L 05/14/23 09:03 134/66 05/14/23 09:00 High Flow Nasal Cannula 05/14/23 09:00 139/74 05/14/23 09:00 68 13 99 05/14/23 08:58 56 L 17 98 05/14/23 08:58 144/68 H 05/14/23 08:56 137/67 05/14/23 08:56 58 L 17 99 05/14/23 08:54 144/70 H 05/14/23 08:54 57 L 16 98 05/14/23 08:53 58 L 22 99 05/14/23 08:53 151/69 H 05/14/23 08:52 60 21 99 05/14/23 08:50 136/72 05/14/23 08:50 61 18 90 05/14/23 08:48 65 21 87 L 05/14/23 08:48 130/72 05/14/23 08:46 63 23 90 05/14/23 08:44 57 L 18 91 05/14/23 08:43 66 17 92 05/14/23 08:42 52 L 18 90 05/14/23 08:41 54 L 19 90 05/14/23 08:40 61 19 93 05/14/23 08:39 58 L 19 92 05/14/23 08:38 55 L 19 94 05/14/23 08:37 52 L 19 92 05/14/23 08:36 56 L 16 90 05/14/23 08:35 55 L 18 89 L 05/14/23 08:34 54 L 18 90 05/14/23 08:33 59 L 19 91 05/14/23 08:32 59 L 21 86 L 05/14/23 08:31 66 22 91 05/14/23 08:30 56 L 22 90 05/14/23 08:29 56 L 20 89 L 05/14/23 08:28 57 L 22 92 05/14/23 08:27 55 L 19 89 L 05/14/23 08:26 60 17 90 05/14/23 08:25 26 H 87 L 05/14/23 08:24 62 20 86 L 05/14/23 08:23 15 87 L 05/14/23 08:22 105 H 16 86 L 05/14/23 08:21 80 18 88 L 05/14/23 08:20 60 17 87 L 05/14/23 08:19 71 22 90 05/14/23 08:18 59 L 17 90 05/14/23 08:17 68 18 91 05/14/23 08:16 61 19 86 L 05/14/23 08:15 63 17 92 05/14/23 08:14 56 L 16 90 05/14/23 08:13 60 18 93 05/14/23 08:12 60 18 93 05/14/23 08:11 66 21 85 L 05/14/23 08:10 62 22 88 L 05/14/23 08:09 59 L 19 89 L 05/14/23 08:08 57 L 17 88 L 05/14/23 08:07 58 L 22 89 L 05/14/23 08:06 60 23 89 L 05/14/23 08:05 57 L 19 89 L 05/14/23 08:04 60 22 87 L 05/14/23 08:03 60 14 88 L 05/14/23 08:02 60 16 89 L 05/14/23 08:01 61 30 H 87 L 05/14/23 08:00 63 05/14/23 08:00 63 22 88 L 05/14/23 07:25 70 20 91 Nasal Cannula 5 Laboratory Results 05/14/23 04:29 05/14/23 04:29 PG Care Time/CCT Total # of Minutes Spent Total Time Spent with Patient: Total time spent is greater than 50% in coordination of care (as documented) at patient's floor/unit and/or counseling patient: Coding Level of Care Code 65917 SUB INP/OBS CARE 2/35MIN Diagnoses Cavitary lesion of lung J98.4 Acute and chronic respiratory failure with hypoxia J96.21 Blood in mouth of unknown source K13.79 Multifocal pneumonia J18.9 Acute blood loss anemia D62 Chronic systolic CHF (congestive heart failure) I50.22 PAF (paroxysmal atrial fibrillation) I48.0 Abnormal LFTs R79.89 Adenocarcinoma of left lung, stage 3 C34.92 History of abdominal aortic aneurysm repair Z98.890 Centrilobular emphysema J43.2 COPD type: emphysema Emphysema type: centrilobular DVT prophylaxis Z29.9 (11) 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
[2023-05-15 04:24] LABS: Hematocrit (blood only) 26.7 % (42.0-52.0); Hemoglobin 8.9 g/dl (14.0-18.0); Mean Corpuscular Hemoglobin 30.7 pg (25.0-34.0); Mean Corpuscular Hgb Conc 33.3 g/dL (32.0-36.0); Mean Corpuscular Volume 92.1 fL (80.0-100.0); Mean Platelet Volume 9.5 fL (9.4-12.4); Platelet Count 278 K/uL (130-400); RDW Coefficient of Variation 15.7 % (11.5-14.5); RDW Standard Deviation 51.8 fL (36.4-46.3); White Blood Count 5.97 K/ul (4.8-10.8)
[2023-05-15 04:44] LABS: BUN Creatinine Ratio 14.2 (10-20); Calcium 8.2 mg/dl (8.6-10.3); Est GFR (African American) 67.7 ml/min; Est GFR (Non-African American) 58.4 ml/min; Potassium 3.3 mmol/L (3.5-5.1)
[2023-05-15 05:10] LABS: ALC (manual) 0.72 K/uL (1.2-3.4); ANC (manual) 4.06 K/uL (1.4-6.5); Basophils # (manual) 0.12 K/uL (0-0.2); Basophils % (manual) 2 %; Eosinophils # (manual) 0.06 K/uL (0-0.50); Eosinophils % (manual) 1 %; Lymphocytes # (manual) 0.72 K/uL (1.2-3.4); Lymphocytes % (manual) 12 %; Metamyelocytes # (manual) 0.36 K/uL (0-0); Metamyelocytes % (manual) 6 %; Monocytes % (manual) 10 %; Myelocytes # (manual) 0.06 K/uL (0-0); Myelocytes % (manual) 1 %; Neutrophils # (manual) 4.06 K/uL (1.40-6.50); Neutrophils % (manual) 68 %
[2023-05-15 05:11] LABS: RBC Morphology Unremarkable
[2023-05-15] MEDS: FUROSEMIDE 40 MG TAB PO SCH (09:09)
[2023-05-15] MEDS: POTASSIUM CHLORIDE CRTAB 20 MEQ TABCR PO STA (09:11)
[2023-05-15] MEDS: POTASSIUM CHLORIDE CRTAB 20 MEQ TABCR PO SCH (09:12)
[2023-05-15] MEDS: fentaNYL citrate PF 100 MCG/2 ML VIAL IV ONE (11:40)
[2023-05-15] MEDS: MIDAZOLAM HCL 1 MG/ML 2ML VIAL IV ONE (11:41)
[2023-05-15 15:57] LABS: Aspergillus Ag Index 0.04 (<0.50); Aspergillus Antigen, Serum Not Detected (Not Detected)
--- NOTE | 2023-05-15 16:09 | Hospitalist Progress Note ---
Date of Service May 15, 2023 Assessment & Plan (1) Cavitary lesion of lung: Plan: 6.3cm, LLL - NEW in comparison to previous CT chest (last CT was 04/21/23), presented with major hemoptysis treated with TXA, anticoagulation stopped. Bleeding from pulmonary hemorrhage vs swallowed and aspirated blood from posterior nosebleed? He gave no history of nosebleed but his reports he had NT suctioning during last admission. he just finished a prolonged course of IV cefepime 3 days ago at his home for pseudomonas pneumonia discussed with ID - thought most likely cavitary lesion related to evolution of previous (severe) pseudomonas pneumonia with consolidation in same location LLL on previous CT. Concern that pseudomonas may quickly develop resistance so sputum sample would be extremely helpful. TB unlikely since cavity developed only over 2 weeks so QF gold would be adequate testing. Also underlying lung cancer, which if progressive could cause hemoptysis and cavitary lesion. Underwent bronchoscopy 05/[address] Khan had blood back of throat but no blood seen in lung, therefore source of blood more likely nasopharyngeal or sinus sputum from 05/12 with Pseudomonas, remains castellon-sensitive follow bronch BAL Cx results - light normal thad on prelim. AFB smears neg x 2 BAL samples - current hospital isolation policy prohibits dc of isolation until negative culture. BAL fungitell - P continue pip-tazo, nasal MRSA neg quantiferon gold test NEG, galactomannan neg, B-1,3-D-glucan pending, aspergillus Ag pending, PJP PCR pending, Legionella PCR pending, Histo/Blasto PCR pending, Cocci DNA pending PCU status (2) Acute and chronic respiratory failure with hypoxia: Plan: Improved, related to hemoptysis and aspirated blood, ongoing pneumonia? no evidence of superimposed pulmonary edema despite his LE edema and mild systolic CHF on prior echo dated 04/22/23 no evidence of PE on imaging chronic resp failure is 2nd to COPD, lung ca, recent extensive pneumonia, etc has been on 4-5L - clarified with RN not actually on HF, just continuing to use HF cannula typically on 3L NC O2 at rest, 6L NC O2 with activity (3) Blood in mouth of unknown source: Plan: -see above -aspirin and DOAC were stopped (4) Multifocal pneumonia: Plan: had such during his prior hospitalization in 04/2023 complicated by chemo-induced pancytopenia and septic shock continues with radiographic evidence of b/l pneumonia despite recent 14-day course of IV cefepime for presumed pseudomonas now with left-sided cavitary lesion - see above (5) Acute blood loss anemia: Plan: 2nd to #3 his BPs are low or low-normal cortisol level is >20 transfused 1 unit RBCs 05/10 with some increase in Hg. Adequate today at >8 (6) Chronic systolic CHF (congestive heart failure): Plan: echo 04/2023 - EF 45-50% was going to follow with [facility] [place] [facility] after recent hospitalization he has considerable LE edema on exam he had such during prior hospitalization and was diuresed during that recent stay his edema persists despite use of daily lasix at home low albumin of 2.5 is contributing to his edema as well resumed oral lasix (7) PAF (paroxysmal atrial fibrillation): Plan: diagnosed with such in the ICU during prior hospitalization needed IV amiodarone during that stay with conversion to NSR discharged on Eliquis + amiodarone Eliquis now on hold due to the presumed hemoptysis/bleeding he had overnight at home cont amiodarone to maintain NSR (8) Abnormal LFTs: Plan: seen during the prior hospitalization LFTs remain mildly high but stable (9) Adenocarcinoma of left lung, stage 3: Plan: dx 01/2023 stage 3a s/p radiation along with chemotherapy last chemo - 04/20/23 - carboplatin/paclitaxel follows with Dr Roque, [facility] (10) History of abdominal aortic aneurysm repair: Plan: 2016 (11) Chronic obstructive pulmonary disease: Plan: severe emphysema on CTs with resulting chronic hypoxic resp failure on home O2 prior heavy tobacco dependence cont home inhalers (12) DVT prophylaxis: Plan: SCDs only chemoprophylaxis contraindicated due to acute bleeding Eliquis on hold Plan replaced mild hypokalemia po 05/13 pt's updated at bedside 05/10, 05/13, 05/14 Admission and Anticipated Discharge Date Admission Date: May 11, 2023 Subjective Feeling ok, no further bleeding, remains on 6L nasal cannula No chest pain, not significantly dyspneic, has cough Physical Exam 2 Physical Exam: PHYSICAL EXAMINATION Last 24h vital signs reviewed, see documentation in flowsheet General: comfortable appearing, no distress HEENT: Normocephalic, atraumatic, pupils round and equal, sclerae anicteric, no conjunctival injection, moist mucus membranes Lungs: Normal respiratory effort. Prolonged expiratory phase. Diminished throughout but better air movement compared to a few days ago. Coarse crackles right greater than left base Heart: Regular rate and rhythm, no murmurs. No JVD Abdomen: Soft, nontender, nondistended. Bowel sounds present. Extremities: Warm, dry, well-perfused. 1+ extremity edema to mid chatman improved. Neuro: Alert and oriented x 4, face symmetric, moves 4 extremities well Psych: Normal affect and behavior Results & Data Results & Data Vital Signs (Past 12 Hours) Vital Signs Pulse Resp BP Pulse Ox O2 Del Method O2 Flow Rate 05/15/23 11:12 69 18 98 High Flow Nasal Cannula 6 05/15/23 11:12 109/67 05/15/23 09:47 Nasal Cannula 6 05/15/23 08:00 60 05/15/23 07:17 124/69 05/15/23 07:17 61 18 96 High Flow Nasal Cannula 6 Laboratory Results 05/15/23 03:47 05/15/23 03:47 PG Care Time/CCT Total # of Minutes Spent Total Time Spent with Patient: Total time spent is greater than 50% in coordination of care (as documented) at patient's floor/unit and/or counseling patient: Coding Level of Care Code 97789 SUB INP/OBS CARE 2/35MIN Diagnoses Cavitary lesion of lung J98.4 Acute and chronic respiratory failure with hypoxia J96.21 Blood in mouth of unknown source K13.79 Multifocal pneumonia J18.9 Acute blood loss anemia D62 Chronic systolic CHF (congestive heart failure) I50.22 PAF (paroxysmal atrial fibrillation) I48.0 Abnormal LFTs R79.89 Adenocarcinoma of left lung, stage 3 C34.92 History of abdominal aortic aneurysm repair Z98.890 Centrilobular emphysema J43.2 COPD type: emphysema Emphysema type: centrilobular DVT prophylaxis Z29.9 (11) 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
--- NOTE | 2023-05-15 17:51 | Pulmonology Progress Note ---
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 Pr evious hospitalization was found to have Pseudomonas bacteremia. Now with left lower lobe cavitary lesion. Status post bronchoscopy 05/13. No evidence of bleeding on bronchoscopy. Washings performed from the left lower lobe and sent for cultures and cytology. Cytology negative. QuantiFERON gold came back negative. Likelihood of TB is very low at this point. AFB smear from BAL negative. Infection control would like to continue with airborne precautions for the time being. I do not think the source of his hemoptysis was from his lungs. I suspect the hemoptysis was either from sinus drainage or an ulceration in his mouth. I suspect the left lower lobe cavitary lesion is likely related to evolving pseudomonal pneumonia. Sputum cultures positive for pansensitive Pseudomonas. Can likely transition to oral levofloxacin. Aspergillus galactomannan negative. Please follow other fungal studies from bronchoscopy as they are still pending at this time. He also appears to have nodularity on his vocal cords and I recommend an ENT consultation given this finding and his weak voice. Continue nystatin swish and swallow for possible fungal infection. Will discontinue ICS inhaler due to recurrent pneumonia and possible fungal infection on vocal cords. Appreciate ID consultation. Will continue to follow along with you. Admission and Anticipated Discharge Date Admission Date: May 11, 2023 Subjective Continues to improve. Appetite improving. Less short of breath today. Currently on 6 L of oxygen saturating in the mid 90s. No further hemoptysis. Review of Systems Review of Systems: All systems reviewed & are unremarkable except as noted in HPI & below Physical Exam Physical Exam: Constitutional: chronically ill appearing, NAD HEENT: NCAT, scab in L nare, several lesions on the soft/hard palate, erythema surrounding this region CV: regular rhythm, no murmur appreciated, extremities well-perfused, 2+ pitting edema bilaterally Resp: globally decreased breath sounds, no wheeze GI: soft, nondistended, nontender, BS normoactive MSK: no gross deformities appreciated Skin: warm, dry, no rash appreciated Neuro: alert, oriented, no focal neurologic deficit appreciated Results & Data Results & Data Vital Signs (Past 12 Hours) Vital Signs Pulse Resp BP Pulse Ox O2 Del Method O2 Flow Rate 05/15/23 16:00 69 05/15/23 11:12 69 18 98 High Flow Nasal Cannula 6 05/15/23 11:12 109/67 05/15/23 09:47 Nasal Cannula 6 05/15/23 08:00 60 05/15/23 07:17 124/69 05/15/23 07:17 61 18 96 High Flow Nasal Cannula 6 PG Care Time/CCT Total # of Minutes Spent Total Time Spent with Patient: Total time spent is greater than 50% in coordination of care (as documented) at patient's floor/unit and/or counseling patient: Coding Level of Care Code 22143 SUB INP/OBS CARE 2/35MIN Diagnoses Cavitary lesion of lung J98.4 PAF (paroxysmal atrial fibrillation) I48.0 Chronic systolic CHF (congestive heart failure) I50.22 Acute HFrEF (heart failure with reduced ejection fraction) I50.21 Centrilobular emphysema J43.2 COPD type: emphysema Emphysema type: centrilobular Weakness of voice R49.8
--- NOTE | 2023-05-15 21:13 | Infectious Disease Progress Nt ---
Date of Service May 15, 2023 Assessment & Plan (1) Cavitary lesion of lung: Plan #Lung cavity 6.3 cm LLL #Recent PSA pneumonia 78yo M with h/o metastatic lung cancer on chemo/XRT (gets chemo no port, on carboplatin/paclitaxel since 04/20/23, currently held), PTX after biopsy, COPD, chronic hypoxia, recent admission for PSA bacteremia and multilobar pneumonia with completed therapy on 05/06 who was admitted to hospital new pneumonia. ID consulted for pneumonia in IC patient. Patient was discharged 05/04 and completed treatment with Cefepime on 05/06. Per notes/Patient's mentions that he was seemingly improving on the cefepime, but once the cefepime was completed, he seemed to have a more difficult time breathing. He denies any vomiting of blood, blood from the rectum or significant fevers. Admitted on 05/10 to ICU. Afebrile, 5L NC, soft BPs, CT Chest showed patchy bilateral airspace opacities redemonstrated within a bibasilar prominent distribution suggestive of multifocal pneumonia. Interval development of a focus of cavitary pneumonia within the left lower lobe measuring up to 6.3 cm. Patient started on IV Zosyn, had clinical improvement and stepped down from ICU 05/12/23 BDG, QFT gold aspergillus ag pending, RVP negative, urine histo pending Notably CT Chest on 04/20 showed Patchy bilateral airspace consolidations at the lung bases, RML/lingula c/w multilobar pneumonia patient having trouble providing sputum sample 05/12 Sputum PSA-panS Underwent bronchoscopy on 05/13 with pulm - Per notes "Status post bronchoscopy 05/13. No evidence of bleeding on bronchoscopy. Washings performed from the left lower lobe and sent for cultures and cytology. BAL AFB smear negative, culture: Light normal thad present, final report to follow. fungal and AFB cultures pending Serum aspergillus antigen negative. QFT gold is negative DISCUSSION NEW cavity in lung compared to recent CT on 04/20. Suspect this is evolving bacterial cavity secondary to pseudomonas. However other etiologies including malignancy, TB, fungal are on differential. Less likely to be TB as no prior findings, no significant Risk factors. His QFT gold is negative, AFB smear x1 sputum and AFB smear from BAL is negative. I would favor dcing airborne precautions. At this time I believe this is evolving cavitary pneumonia secondary to pseudomonas. Given his panS PSA growth I would favor approx 4 week therapy. Can narrow to Cefepime and DC Zosyn. Given how quickly the cavity occurred and need for chemo, would keep on IV cefepime for now with transition to orals done as outpatient (possibly for 4th week of treatment) Recommend DC Zosyn Narrow to Cefepime 2G IV TID, His GFR ~58, Please monitor Cr as climbing, If continues to increase please d/w Pharm Cefepime dosing (BID vs TID) Can dc airborne precautions (please d/w Infection control)--> QFT gold neg, AFB smear neg from BAL, as well from 1 sputum Line placement (can place midline or PICC) Plan to treat with Cefepime for a total of 4 weeks from admission (from start of Zosyn) so 05/10-06/08/23 During his last of therapy s/p 3 weeks of IV, can consider change to levofloxacin at discretion of outpatient specialist Close follow up as outpatient with ID, Pulm Can place midline vs PICC (he felipe be on treatment for <30 days, hopefully) Tammie Barton MD Infectious Diseases Admission and Anticipated Discharge Date Admission Date: May 11, 2023 Subjective This patient recommendation is based on a telemedicine consult request which was completed asynchronously through chart review and information provided by the primary physician. The patient was not seen or examined today. The evaluation is consultative in nature and all patient care and treatment decisions can either be accepted or rejected by the patient's primary hospital-based treating physician using their own independent medical judgment for their patient. Time Spent Reviewing Chart: 31+ minutes Results & Data Vital Signs (Past 12 Hours) Vital Signs Pulse Resp BP Pulse Ox O2 Del Method O2 Flow Rate 05/15/23 16:00 69 05/15/23 11:12 69 18 98 High Flow Nasal Cannula 6 05/15/23 11:12 109/67 05/15/23 09:47 Nasal Cannula 6 Laboratory Results Short CBC 05/15/23 Range/Units 03:47 WBC 5.97 (4.8-10.8) K/ul Hgb 8.9 L (14.0-18.0) g/dl Hct 26.7 L (42.0-52.0) % Plt Count 278 (130-400) K/uL BMP 05/15/23 03:47 Sodium 137 Potassium 3.3 L Chloride 101 Carbon Dioxide 30 BUN 17 Creatinine 1.20 Glucose 101 H Calcium 8.2 L Medications Administered Current Inpatient Medications Amiodarone HCl (Amiodarone 200 Mg Tab) 200 mg PO BIDM [facility] Stop: 06/10/23 16:59 Last Admin: 05/15/23 16:18 Dose: 200 mg Atorvastatin Calcium (Atorvastatin 20 Mg Tab) 20 mg PO PM [facility] Stop: 06/11/23 20:59 Last Admin: 05/15/23 19:53 Dose: 20 mg Furosemide (Furosemide 20 Mg Tab) 20 mg PO QAM [facility] Stop: 06/15/23 08:59 Piperacillin Sod/Tazobactam (Sod 4.5 gm/ Dextrose) 100 mls @ 25 mls/hr IV Q8H [facility]; Protocol Stop: 05/18/23 12:59 Last Infusion: 05/15/23 20:18 Dose: Infused Nystatin (Nystatin Susp 500,000 U/5 Ml Udc) 5 ml PO QID [facility] Stop: 05/24/23 12:59 Last Admin: 05/15/23 19:53 Dose: 5 ml Potassium Chloride (Potassium Chloride 10 Meq Tabcr) 10 meq PO DAILY [facility] Stop: 06/12/23 08:59 Last Admin: 05/14/23 10:37 Dose: 10 meq Potassium Chloride (Potassium Chloride Crtab 20 Meq Tabcr) 20 meq PO QAM [facility] Stop: 06/14/23 08:59 Last Admin: 05/15/23 09:12 Dose: 20 meq Umeclidinium/Vilanterol (Umeclidinium/Vilanterol 62.5/25mcg 7 Puffs/Inhaler) 1 puffs INH DAILY [facility] Stop: 06/11/23 08:59 Last Admin: 05/15/23 08:34 Dose: 1 puffs
[2023-05-15 21:47] LABS: Fungitell (1-3)-B-D-Glucan 137 pg/mL
[2023-05-16] MEDS: FUROSEMIDE 20 MG TAB PO SCH (07:30)
[2023-05-16 08:52] LABS: Albumin Globulin Ratio 0.7 (0.9-2); Albumin Level 2.6 gm/dl (3.4-5.0); BUN Creatinine Ratio 13.7 (10-20); Bilirubin,Total 0.8 mg/dl (0.2-1.0); Calcium 8.7 mg/dl (8.6-10.3); Creatinine Clr Calc Pharmacy 50.2 ml/min; Est GFR (African American) 69.8 ml/min; Est GFR (Non-African American) 60.2 ml/min; Hematocrit (blood only) 31.4 % (42.0-52.0); Hemoglobin 10.4 g/dl (14.0-18.0); Mean Corpuscular Hemoglobin 30.4 pg (25.0-34.0); Mean Corpuscular Hgb Conc 33.1 g/dL (32.0-36.0); Mean Corpuscular Volume 91.8 fL (80.0-100.0); Mean Platelet Volume 9.5 fL (9.4-12.4); Platelet Count 337 K/uL (130-400); Potassium 3.6 mmol/L (3.5-5.1); RDW Coefficient of Variation 15.5 % (11.5-14.5); RDW Standard Deviation 51.1 fL (36.4-46.3); Red Blood Count 3.42 M/uL (4.70-6.10); Total Protein 6.6 gm/dl (6.0-8.3); White Blood Count 9.39 K/ul (4.8-10.8)
[2023-05-16] MEDS ORDERED: SODIUM CHLORIDE 0.65% NA SOLN 45 ML (OCEAN) PRN (10:27)
--- NOTE | 2023-05-16 10:35 | Pulmonology Progress Note ---
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 Previous hospitalization was found to have Pseudomonas bacteremia. Now with left lower lobe cavitary lesion. Sputum growing Pseudomonas. Status post bronchoscopy. AFB stains and cultures negative to date. Recommendations: 1. Cavitary lung lesion: Status post bronchoscopy 05/13. Washings performed from the left lower lobe and sent for cultures and cytology. Cytology negative. QuantiFERON gold came back negative. Isolation per infection control and infectious disease however at this point in time I think the likelihood of tuberculosis is quite low and from my standpoint respiratory isolation can be discontinued. Recommend follow-up CT scan in 6 to [address] Khan. Transitioned from Zosyn to cefepime based on ID recommendations. ID recommending PICC line and 4 weeks of antimicrobial therapy 2. Hemoptysis: Resolved. No evidence of bleeding from the airway. Continue to observe clinically. 3. ENT consultation given nodularity on vocal cords per primary service. Can be done as an outpatient. 4. Hypoxemia: Continue to wean oxygen as tolerated. Try and defend oxygen saturations around 90%. Will follow peripherally as the patient will require prolonged antibiotics, outpatient pulmonary follow-up, and potentially rehab. Increase activity as tolerated and ambulation with incentive spirometry may be beneficial. Feel free to contact us with specific questions. Admission and Anticipated Discharge Date Admission Date: May 11, 2023 Subjective Patient seen and examined. EMR reviewed. Discussed with off going industrial organization manager as well as bedside critical care nurse. The patient is seen sitting up in a chair. He states he is feeling better. His oxygen has been weaned down to 6 L. He is not coughing or expectorating phlegm. He does feel congested in his nares. Review of Systems 2 Review of Systems: All systems reviewed & are unremarkable except as noted in Subjective Physical Exam 2 Physical Exam: Constitutional: chronically ill appearing, NAD HEENT: NCAT, scab in L nare, several lesions on the soft/hard palate, erythema surrounding this region CV: regular rhythm, no murmur appreciated, extremities well-perfused, 2+ pitting edema bilaterally Resp: globally decreased breath sounds, no wheeze GI: soft, nondistended, nontender, BS normoactive MSK: no gross deformities appreciated Skin: warm, dry, no rash appreciated Neuro: alert, oriented, no focal neurologic deficit appreciated Results & Data Results & Data Vital Signs (Past 12 Hours) Vital Signs Pulse Resp BP Pulse Ox O2 Del Method O2 Flow Rate 05/16/23 09:02 Nasal Cannula 6 05/16/23 07:42 73 17 92 Nasal Cannula 6 05/16/23 07:42 120/71 05/16/23 07:18 67 05/16/23 07:00 61 17 99 Nasal Cannula 6 Laboratory Results 05/16/23 08:10 05/16/23 08:10 Microbiology 05/11/23 07:35 Blood Aerobic Blood Culture - Final No growth in Aerobic bottle after 5 days. 05/11/23 07:35 Blood Anaerobic Blood Culture - Final No growth in Anaerobic bottle after 5 days. 05/14/23 09:00 Bronch Wash,Left Lower Lobe Gram Stain - Final 05/14/23 09:00 Bronch Wash,Left Lower Lobe Bronchial Culture - Final Light normal thad. 05/11/23 05:45 Blood Aerobic Blood Culture - Final No growth in Aerobic bottle after 5 days. 05/11/23 05:45 Blood Anaerobic Blood Culture - Final No growth in Anaerobic bottle after 5 days. 05/11/23 05:45 Blood Aerobic Blood Culture - Final No growth in Aerobic bottle after 5 days. 05/11/23 05:45 Blood Anaerobic Blood Culture - Final No growth in Anaerobic bottle after 5 days. 05/13/23 19:40 Sputum, Expectorated Gram Stain - Final 05/13/23 19:40 Sputum, Expectorated Sputum Culture - Final Pseudomonas aeruginosa 05/14/23 09:00 Bronch Wash,Left Lower Lobe Acid Fast Bacilli Smear - Final 05/14/23 07:30 Sputum, Expectorated Acid Fast Bacilli Smear - Final 05/14/23 09:00 Bronch Wash,Left Lower Lobe Fungal Smear - Final 05/11/23 12:50 Blood Aerobic Blood Culture - Preliminary No growth in Aerobic bottle after 48 hours. 05/11/23 12:50 Blood Anaerobic Blood Culture - Preliminary No growth in Anaerobic bottle after 48 hours. Diagnostic Findings No new imaging PG Care Time/CCT Total # of Minutes Spent Total Time Spent with Patient: Total time spent is greater than 50% in coordination of care (as documented) at patient's floor/unit and/or counseling patient: Coding Level of Care Code 77308 SUB INP/OBS CARE 2/35MIN Diagnoses Cavitary lesion of lung J98.4 Centrilobular emphysema J43.2 COPD type: emphysema Emphysema type: centrilobular
[2023-05-16] MEDS ORDERED: ARTIFICIAL TEARS OPB PRN (10:36)
--- NOTE | 2023-05-16 15:40 | Hospitalist Progress Note ---
Date of Service May 16, 2023 Assessment & Plan (1) Cavitary lesion of lung: Plan: 6.3cm, LLL - NEW in comparison to previous CT chest (last CT was 04/21/23), presented with major hemoptysis treated with TXA, anticoagulation stopped. Bleeding from pulmonary hemorrhage vs swallowed and aspirated blood from posterior nosebleed? He gave no history of nosebleed but his reports he had NT suctioning during last admission. he just finished a prolonged course of IV cefepime 3 days ago at his home for pseudomonas pneumonia discussed with ID - thought most likely cavitary lesion related to evolution of previous (severe) pseudomonas pneumonia with consolidation in same location LLL on previous CT. Concern that pseudomonas may quickly develop resistance so sputum sample would be extremely helpful. TB unlikely since cavity developed only over 2 weeks, BAL smear and QF gold negative. Also underlying lung cancer, which if progressive could cause hemoptysis and cavitary lesion. Underwent bronchoscopy 05/[address] Khan had blood back of throat but no blood seen in lung, therefore source of blood more likely nasopharyngeal or sinus sputum from 05/12 with Pseudomonas, remains castellon-sensitive follow bronch BAL Cx results - light normal thad on prelim. AFB smears neg x 2 BAL samples - current hospital isolation policy prohibits dc of isolation until negative culture. BAL fungitell - P initially treated with pip-tazo, changed cefepime based on sensis of Pseudomonas in sputum - ID recommends 4 week course (through 06/07) option to change to oral levaquin for final week -I consented him for midline but discussed with IV team and US guided IV will be good for his remaining three weeks of ABX - will place closer to discharge -arrange home infusion vs rehab quantiferon gold test NEG, galactomannan neg, B-1,3-D-glucan pending, aspergillus Ag pending, PJP PCR pending, Legionella PCR pending, Histo/Blasto PCR pending, Cocci DNA pending (2) Acute and chronic respiratory failure with hypoxia: Plan: Improved, related to hemoptysis and aspirated blood, ongoing pneumonia? no evidence of superimposed pulmonary edema despite his LE edema and mild systolic CHF on prior echo dated 04/22/23 no evidence of PE on imaging chronic resp failure is 2nd to COPD, lung ca, recent extensive pneumonia, etc has been on 4-6L - clarified with RN not actually on HF, just continuing to use HF cannula typically on 3L NC O2 at rest, 6L NC O2 with activity O2 sat goal >=90% (3) Blood in mouth of unknown source: Plan: -see above -aspirin and DOAC were stopped -resume ASA (4) Multifocal pneumonia: Plan: had such during his prior hospitalization in 04/2023 complicated by chemo-induced pancytopenia and septic shock recent 14-day course of IV cefepime for presumed pseudomonas -see above (5) Acute blood loss anemia: Plan: 2nd to #3 his BPs are low or low-normal cortisol level is >20 transfused 1 unit RBCs 05/10 with some increase in Hg. Adequate today at 10.4 (6) Chronic systolic CHF (congestive heart failure): Plan: echo 04/2023 - EF 45-50% was going to follow with [facility] [place] [facility] after recent hospitalization he has considerable LE edema on exam he had such during prior hospitalization and was diuresed during that recent stay his edema persists despite use of daily lasix at home low albumin of 2.5 is contributing to his edema as well euvolemic. cont oral lasix (7) PAF (paroxysmal atrial fibrillation): Plan: diagnosed with such in the ICU during prior hospitalization needed IV amiodarone during that stay with conversion to NSR discharged on Eliquis + amiodarone Eliquis now on hold due to the presumed hemoptysis/bleeding cont amiodarone to maintain NSR -should be safe to resume apixaban in future (8) Abnormal LFTs: Plan: seen during the prior hospitalization LFTs remain mildly high but stable (9) Adenocarcinoma of left lung, stage 3: Plan: dx 01/2023 stage 3a s/p radiation along with chemotherapy last chemo - 04/20/23 - carboplatin/paclitaxel follows with Dr Ro[facility] (10) History of abdominal aortic aneurysm repair: Plan: 2016 (11) Chronic obstructive pulmonary disease: Plan: severe emphysema on CTs with resulting chronic hypoxic resp failure on home O2 prior heavy tobacco dependence cont home inhalers (12) DVT prophylaxis: Plan: start SQ heparin for DVT ppx Plan replaced mild hypokalemia po 05/13 nodularity on vocal cords, hoarse voice - improving on nystatin s/s. Outpatient ENT follow up pt's updated at bedside 05/10, 05/13, 05/14 Admission and Anticipated Discharge Date Admission Date: May 11, 2023 Subjective dyspnea at baseline, not coughing, no chest pain, no further bleeding hoarseness improved Physical Exam 2 Physical Exam: PHYSICAL EXAMINATION Last 24h vital signs reviewed, see documentation in flowsheet General: comfortable appearing, no distress, sitting in chair HEENT: Normocephalic, atraumatic, pupils round and equal, sclerae anicteric, no conjunctival injection, moist mucus membranes. voice is louder today Lungs: Normal respiratory effort. Prolonged expiratory phase. Diminished throughout. Coarse crackles right greater than left base. unchanged Heart: Regular rate and rhythm, no murmurs. No JVD Abdomen: Soft, nontender, nondistended. Bowel sounds present. Extremities: Warm, dry, well-perfused. 1+ extremity edema to mid chatman unchanged. Neuro: Alert and oriented x 4, face symmetric, moves 4 extremities well Psych: Normal affect and behavior Results & Data Results & Data Vital Signs (Past 12 Hours) Vital Signs Temp Pulse Pulse Resp BP BP Pulse Ox 05/16/23 14:30 36.9 C 67 20 119/75 98 05/16/23 09:02 05/16/23 07:42 73 17 92 05/16/23 07:42 120/71 05/16/23 07:18 67 05/16/23 07:00 61 17 99 O2 Del Method O2 Flow Rate 05/16/23 14:30 Room Air, Nasal Cannula 6 05/16/23 09:02 Nasal Cannula 6 05/16/23 07:42 Nasal Cannula 6 05/16/23 07:42 05/16/23 07:18 05/16/23 07:00 Nasal Cannula 6 Laboratory Results 05/16/23 08:10 05/16/23 08:10 PG Care Time/CCT Total # of Minutes Spent Total Time Spent with Patient: I personally spent: 50 minutes today on clinical care activities including: reviewing chart notes and vital signs reviewing labs reviewing micro discussion with bedside RN, IV team examining and counseling the patient counseling the patient's family writing orders documentation Coding Level of Care Code 86348 SUB INP/OBS CARE 3/50MIN Diagnoses Cavitary lesion of lung J98.4 Acute and chronic respiratory failure with hypoxia J96.21 Blood in mouth of unknown source K13.79 Multifocal pneumonia J18.9 Acute blood loss anemia D62 Chronic systolic CHF (congestive heart failure) I50.22 PAF (paroxysmal atrial fibrillation) I48.0 Abnormal LFTs R79.89 Adenocarcinoma of left lung, stage 3 C34.92 History of abdominal aortic aneurysm repair Z98.890 Centrilobular emphysema J43.2 COPD type: emphysema Emphysema type: centrilobular DVT prophylaxis Z29.9 (11) 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
[2023-05-16] MEDS: CEFEPIME 2,000 MG in SYRINGE 0 ML IV SCH (20:08)
--- NOTE | 2023-05-17 00:49 | Communication Note ---
Date of Service: May 17, 2023 Yared claudio was called on pt at 00:00 due to hypoxia and tachycardia. Per nursing, pt had gotten off of bedside commode when his oxygen saturation dropped to the 80s and his heart rate increased to the 150s. He has been on 4-6L NC during this admission. Pt in current tx of pseudomonas pneumonia and evaluation of new cavitary lesion in the setting of lung adenocarcinoma. Pt was being covered with cefepime (which was recently switched from zosyn). Levofloxacin q24hr was added for double coverage of pseudomonas. CXR was obtained which showed minimal increase in LLL opacities but otherwise no significant change from last CXR 05/10. 40 mg of IV lasix given. Echo from 04/2023 showed EF 45-50% with global hypokinesis of LV. Continue with home 20 mg PO lasix daily. CTA was obtained as pt had not been anticoagulated during this hospital stay d/t hemoptysis requiring 1u pRBC transfusion 05/10. CTA negative for PE. Given his bilateral LE edema, bilateral LE dopplers were checked (report pending). Pt was transferred to the PCU on HFNC with improvement in his O2 sats. Resident Activity Tracking Resident Involvement: Resident Care Provided Care Provided: Adult Hospital Medicine
[2023-05-17 00:50] LABS: iSTAT Allen Test Pass; iSTAT Art Bld Gas pCO2 Correct 38 mmHg (35-46); iSTAT Art Bld Gas pH Corrected 7.424 (7.35-7.45); iSTAT Arterial Blood Gas HCO3 25 meg/L (19-24); iSTAT Arterial Blood Gas pCO2 37 mmHg (35-46); iSTAT Arterial Blood Gas pH 7.44 (7.35-7.45); iSTAT Arterial Blood Gas pO2 52 mmHg (80-95); iSTAT Arterial Blood Gas pO2 C 55; iSTAT Carbon Dioxide 26 mmol/L (24-31); iSTAT FiO2 100 %; iSTAT Hematocrit 32 % (42-52); iSTAT Hemoglobin 10.9 g/dl (14.0-18.0); iSTAT Potassium 4.2 mmol/L (3.3-5.0); iSTAT Site R Radial; iSTAT Sodium 137 mmol/L (135-144)
[2023-05-17] MEDS: OPTIRAY 320 125ml IV ONE (01:04)
[2023-05-17] MEDS: levoFLOXacin/D5W 750 MG/150 ML BAG IV STA (01:26)
[2023-05-17] MEDS: FUROSEMIDE 40 MG/4 ML VIAL IV ONE (01:26)
[2023-05-17] MEDS: ONDANSETRON INJ 2 MG/ML 2 ML VIAL IV PRN (01:27)
[2023-05-17] MEDS: ACETAMINOPHEN 1,000 MG/100 ML VIAL IV PRN (01:27)
--- NOTE | 2023-05-17 04:08 | CT Scan Report ---
Exam(s): CTA CHEST W/WO Contrast IV Amt: 119 cc's of optiray 320 EXAM: CT Angiography Chest Without and With Intravenous Contrast CLINICAL HISTORY: Reason for exam: acute hypoxia. TECHNIQUE: Axial computed tomographic angiography images of the chest without and with intravenous contrast. CTDI is 16.49 mGy and DLP is 565.42 mGy-cm. Automated exposure control was utilized for the study. A dose lowering technique was utilized adhering to the principles of ALARA. MIP reconstructed images were created and reviewed. CONTRAST: Patient received 119 cc's of optiray 320 of IV contrast COMPARISON: No relevant prior studies available. FINDINGS: Pulmonary arteries: Motion artifact limits evaluation. Despite this, no evidence of pulmonary emboli within the outflow tract or proximal branches. Aorta: Atherosclerotic disease. No thoracic aortic aneurysm. Lungs: Prominent areas of dependent consolidation within the lungs with additional nondependent areas of airspace disease. Findings likely relate to infection/aspiration changes. Consider follow-up imaging to ensure resolution. Severe upper lobe predominant centrilobular emphysema. Pleural space: Small bilateral pleural effusions which may relate to volume overload. No pneumothorax. Heart: Coronary artery calcifications. No cardiomegaly. No significant pericardial effusion. No evidence of RV dysfunction. Bones/joints: Degenerative changes in the spine. No acute fracture. No dislocation. Soft tissues: Unremarkable. Lymph nodes: Unremarkable. No enlarged lymph nodes. Kidneys and ureters: Simple bilateral renal cysts. No follow-up of these simple cysts is necessary. Calculi within the right kidney which may relate to nonobstructive calculi. Vascular calcifications are also possible. IMPRESSION: 1. Motion artifact limits evaluation. Despite this, no evidence of pulmonary emboli within the outflow tract or proximal branches. 2. Prominent areas of dependent consolidation within the lungs with additional nondependent areas of airspace disease. Findings likely relate to infection/aspiration changes. Consider follow-up imaging to ensure resolution. 3. Severe upper lobe predominant centrilobular emphysema. 4. Other incidental findings as described. Electronically signed by: Indio Garrett MD 05/17/23 04:08 AM
[2023-05-17 04:19] LABS: Hemoglobin 9.3 g/dl (14.0-18.0); Mean Corpuscular Hemoglobin 30.1 pg (25.0-34.0); Mean Corpuscular Hgb Conc 33.2 g/dL (32.0-36.0); Mean Corpuscular Volume 90.6 fL (80.0-100.0); Mean Platelet Volume 9.6 fL (9.4-12.4); Platelet Count 288 K/uL (130-400); RDW Coefficient of Variation 15.4 % (11.5-14.5); RDW Standard Deviation 50.6 fL (36.4-46.3); Red Blood Count 3.09 M/uL (4.70-6.10); White Blood Count 12.52 K/ul (4.8-10.8)
[2023-05-17 04:29] LABS: BUN Creatinine Ratio 17.5 (10-20); Calcium 8.1 mg/dl (8.6-10.3); Creatinine Clr Calc Pharmacy 46.6 ml/min; Est GFR (African American) 63.8 ml/min; Magnesium 1.3 mg/dl (1.7-2.4); Phosphorus 2.4 mg/dl (2.5-4.9); Potassium 3.4 mmol/L (3.5-5.1)
[2023-05-17 04:41] LABS: Basophils # (auto) 0.07 K/uL (0.00-0.20); Basophils % (auto) 0.6 %; Eosinophils # (auto) 0.03 K/uL (0.00-0.50); Eosinophils % (auto) 0.2 %; Immature Granulocytes # (auto) 0.72 K/uL (0.01-0.20); Immature Granulocytes % (auto) 5.8 %; Lymphocytes # (auto) 0.24 K/uL (1.20-3.40); Lymphocytes % (auto) 1.9 %; Monocytes # (auto) 0.91 K/uL (0.11-0.59); Monocytes % (auto) 7.3 %; Neutrophils # (auto) 10.55 K/uL (1.40-6.50); Neutrophils % (auto) 84.2 %
--- NOTE | 2023-05-17 05:22 | Ultrasound Report ---
Exam(s): US VENOUS BILATERAL LOWER EXTREMITIES EXAM: US Duplex Bilateral Lower Extremities Veins CLINICAL HISTORY: Reason for exam: LE swelling, hypoxia, r/o DVT. TECHNIQUE: Real-time duplex ultrasound scan of the bilateral lower extremity veins integrating B-mode two-dimensional vascular structure, Doppler spectral analysis, color flow Doppler imaging and compression. COMPARISON: No relevant prior studies available. FINDINGS: Right deep veins: Unremarkable. No DVT in the right common femoral, femoral, proximal deep femoral or popliteal veins. The veins demonstrate normal color flow, are normally compressible, with normal phasic flow and/or augmentation response. Right superficial veins: Unremarkable. No thrombus in the visualized right great saphenous vein. Left deep veins: Nonocclusive thrombus noted within the left common femoral vein, left greater saphenous vein, and left superficial femoral vein. Otherwise no evidence of thrombus within the visualized left lower extremity. Left superficial veins: See above. Soft tissues: No acute findings. No popliteal cyst. IMPRESSION: Nonocclusive thrombus noted within the left common femoral vein, left greater saphenous vein, and left superficial femoral vein. Otherwise no evidence of thrombus within the visualized left lower extremity. Electronically signed by: Indio Garrett MD 05/17/23 05:20 AM
[2023-05-17] MEDS: Heparin IV Adult Wt-Based Standard w/ INITIAL Bolus Protocol IV SCH (07:30)
[2023-05-17] MEDS: POTASSIUM CHLORIDE / WTR 10 MEQ/100 ML PLCT IV SCH (07:38)
[2023-05-17] MEDS: MAGNESIUM SULFATE / D5W 1 GM/100 ML BAG IV SCH (07:38)
[2023-05-17 08:11] LABS: INR 1.2 (0.9-1.1); Partial Thromboplastin Ratio 0.9; Partial Thromboplastin Time 24 Seconds (21-31); Prothrombin Time 12.6 Seconds (9.0-12.0)
[2023-05-17] MEDS: HEPARIN SOD (PORCINE) 1000 UNIT/ML IV ONE (08:22)
[2023-05-17] MEDS: HEPARIN SODIUM/DEXTROSE 25,000 UNITS/500 ML BAG IV SCH (08:22)
[2023-05-17] MEDS: ASPIRIN 81 MG ECTAB PO SCH (08:23)
--- NOTE | 2023-05-17 08:40 | XRay Report ---
XR chest 1V portable CLINICAL HISTORY: hypoxia TECHNIQUE: Single frontal radiograph of the chest was obtained. Comparison: Comparison is made to chest radiograph 05/11/2023 FINDINGS: No lines and tubes are seen. The cardiomediastinal silhouette is obscured. Bilateral lower lung predo minant airspace opacities are seen. No evidence of pleural effusion or pneumothorax. IMPRESSION: Bilateral lower lung predominant airspace opacities which may represent atelectasis, pneumonia, and/o r aspiration. This is stable to minimally enlarged from prior exam. ACT 112: Negative or not required by law. Electronically signed by: Reese Garrison M.D. 05/17/2023 8:39 AM
--- NOTE | 2023-05-17 10:00 | Pulmonology Progress Note ---
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 Previous hospitalization was found to have Pseudomonas bacteremia. Now with left lower lobe cavitary lesion. Sputum growing Pseudomonas. Status post bronchoscopy. AFB stains and cultures negative to date. He developed shortness of breath yesterday and a CT angiogram was unrevealing however lower extremity ultrasound did show clot. He is now on a heparin infusion. Recommendations: 1. Cavitary lung lesion: Status post bronchoscopy 05/13. Washings performed from the left lower lobe and sent for cultures and cytology. Cytology negative. QuantiFERON gold came back negative. Infectious disease and myself have recommended discontinue of isolation however apparently the patient remains in isolation due to infection control. Recommend follow-up CT scan in 6 to [address] Khan. Transitioned from Zosyn to cefepime based on ID recommendations. ID recommending PICC line and 4 weeks of antimicrobial therapy. No need to double cover as the patient has not had bacteremia. His CT scan did show improvement of the cavitary lesion and a few areas that appeared slightly more consolidated that will need close attention on follow-up. 2. Hemoptysis: Resolved. No evidence of bleeding from the airway. Continue to observe clinically. 3. ENT consultation given nodularity on vocal cords per primary service. Can be done as an outpatient. 4. Hypoxemia: Continue to wean oxygen as tolerated. Try and defend oxygen saturations around 90%. Oxygen requirement improved today. Precipitating events from last night are unclear. He could have had a mucous plug. If he was off his oxygen, that would account for his symptoms as well or if the oxygen were inadvertently discontinued from the wall. Regardless at this point time he feels better. Will follow peripherally as the patient will require prolonged antibiotics, outpatient pulmonary follow-up, and potentially rehab. Increase activity as tolerated and ambulation with incentive spirometry may be beneficial. Feel free to contact us with specific questions. Admission and Anticipated Discharge Date Admission Date: May 11, 2023 Subjective Patient seen and examined. EMR reviewed. Discussed with nursing at bedside as well as with patient. 24-hour events noted. Reviewed with critical care VIP[facility] overnight. The patient had an episode where he got up to use the restroom yesterday on the floor. He developed shortness of breath and called the nurse. Unclear if the patient was using oxygen as he believes it was on but there are notes documenting that maybe his oxygen was off. The patient has returned back to baseline this morning and his oxygen saturations and oxygen requirement are actually better than they were yesterday. He continues to cough but is not expectorating any phlegm. He has not had any hemoptysis. He denies chest pain palpitations or lower extremity edema. He is tolerating a diet. He remains on antibiotics. Review of Systems Review of Systems: All systems reviewed & are unremarkable except as noted in Subjective Physical Exam Physical Exam: Constitutional: chronically ill appearing, NAD HEENT: NCAT, scab in L nare, several lesions on the soft/hard palate, erythema surrounding this region CV: regular rhythm, no murmur appreciated, extremities well-perfused, 2+ pitting edema bilaterally Resp: globally decreased breath sounds, no wheeze GI: soft, nondistended, nontender, BS normoactive MSK: no gross deformities appreciated Skin: warm, dry, no rash appreciated Neuro: alert, oriented, no focal neurologic deficit appreciated Results & Data Results & Data Vital Signs (Past 12 Hours) Vital Signs Temp Pulse Pulse Resp BP BP Pulse Ox 05/17/23 08:00 05/17/23 08:00 72 05/17/23 07:24 78 20 95 05/17/23 07:00 37.4 C 81 22 108/62 96 05/17/23 06:00 37.4 C 72 13 96/61 L 94 05/17/23 05:37 37.5 C 70 15 96 05/17/23 05:07 93/58 L 05/17/23 05:07 37.7 C H 78 14 95 05/17/23 05:00 37.7 C H 73 15 96 05/17/23 04:37 93/57 L 05/17/23 04:37 37.9 C H 75 18 96 05/17/23 04:07 38.1 C H 71 16 99 05/17/23 04:07 94/61 L 05/17/23 04:00 72 18 94 05/17/23 04:00 38.1 C H 71 16 99 05/17/23 03:37 99/57 L 05/17/23 03:37 38.3 C H 75 16 99 05/17/23 03:07 38.7 C H 79 17 99 05/17/23 03:00 38.8 C H 82 18 98 05/17/23 02:37 39.1 C H 85 18 96/58 L 99 05/17/23 02:21 39.3 C H 91 H 21 97/60 L 98 05/17/23 02:20 05/17/23 02:07 39.5 C H 106 H 18 97 05/17/23 02:07 97/60 L 05/17/23 02:00 39.6 C H 105 H 13 98 05/17/23 01:37 39.9 C H 109 H 14 96 05/17/23 01:37 39.3 C H 99/68 L 97 05/17/23 01:22 86 20 95 05/17/23 01:00 105 H 23 100 05/17/23 00:37 122 H 19 92 05/17/23 00:37 139/105 H 05/17/23 00:32 39.6 C H 15 93 05/17/23 00:30 102 H 05/17/23 00:30 39.4 C H 88 26 H 97/60 L 98 Pulse Ox O2 Del Method O2 Del Method O2 Flow Rate O2 Flow Rate FiO2 05/17/23 08:00 Room Air 05/17/23 08:00 05/17/23 07:24 Nasal Cannula 7 05/17/23 07:00 Room Air 05/17/23 06:00 High Flow Nasal Cannula 50 05/17/23 05:37 High Flow Nasal Cannula 50 05/17/23 05:07 05/17/23 05:07 05/17/23 05:00 05/17/23 04:37 05/17/23 04:37 High Flow Nasal Cannula 50 05/17/23 04:07 05/17/23 04:07 05/17/23 04:00 High Flow Nasal Cannula 25 50 05/17/23 04:00 High Flow Nasal Cannula 50 05/17/23 03:37 05/17/23 03:37 05/17/23 03:07 High Flow Nasal Cannula 50 05/17/23 03:00 05/17/23 02:37 High Flow Nasal Cannula 50 05/17/23 02:21 High Flow Nasal Cannula 05/17/23 02:20 98 High Flow Nasal Cannula 40 05/17/23 02:07 05/17/23 02:07 05/17/23 02:00 05/17/23 01:37 05/17/23 01:37 High Flow Nasal Cannula 05/17/23 01:22 High Flow Nasal Cannula 30 70 05/17/23 01:00 05/17/23 00:37 05/17/23 00:37 05/17/23 00:32 05/17/23 00:30 05/17/23 00:30 Non-rebreather 15 Critical Care Results & Data Vital Signs (Past 12 Hours) Vital Signs Temp Pulse Pulse Resp BP BP Pulse Ox 05/17/23 08:00 05/17/23 08:00 72 05/17/23 07:24 78 20 95 05/17/23 07:00 37.4 C 81 22 108/62 96 05/17/23 06:00 37.4 C 72 13 96/61 L 94 05/17/23 05:37 37.5 C 70 15 96 05/17/23 05:07 93/58 L 05/17/23 05:07 37.7 C H 78 14 95 05/17/23 05:00 37.7 C H 73 15 96 05/17/23 04:37 93/57 L 05/17/23 04:37 37.9 C H 75 18 96 05/17/23 04:07 38.1 C H 71 16 99 05/17/23 04:07 94/61 L 05/17/23 04:00 72 18 94 05/17/23 04:00 38.1 C H 71 16 99 05/17/23 03:37 99/57 L 05/17/23 03:37 38.3 C H 75 16 99 05/17/23 03:07 38.7 C H 79 17 99 05/17/23 03:00 38.8 C H 82 18 98 05/17/23 02:37 39.1 C H 85 18 96/58 L 99 05/17/23 02:21 39.3 C H 91 H 21 97/60 L 98 05/17/23 02:20 05/17/23 02:07 39.5 C H 106 H 18 97 05/17/23 02:07 97/60 L 05/17/23 02:00 39.6 C H 105 H 13 98 05/17/23 01:37 39.9 C H 109 H 14 96 05/17/23 01:37 39.3 C H 99/68 L 97 05/17/23 01:22 86 20 95 05/17/23 01:00 105 H 23 100 05/17/23 00:37 122 H 19 92 05/17/23 00:37 139/105 H 05/17/23 00:32 39.6 C H 15 93 05/17/23 00:30 102 H 05/17/23 00:30 39.4 C H 88 26 H 97/60 L 98 Pulse Ox O2 Del Method O2 Del Method O2 Flow Rate O2 Flow Rate FiO2 05/17/23 08:00 Room Air 05/17/23 08:00 05/17/23 07:24 Nasal Cannula 7 05/17/23 07:00 Room Air 05/17/23 06:00 High Flow Nasal Cannula 50 05/17/23 05:37 High Flow Nasal Cannula 50 05/17/23 05:07 05/17/23 05:07 05/17/23 05:00 05/17/23 04:37 05/17/23 04:37 High Flow Nasal Cannula 50 05/17/23 04:07 05/17/23 04:07 05/17/23 04:00 High Flow Nasal Cannula 25 50 05/17/23 04:00 High Flow Nasal Cannula 50 05/17/23 03:37 05/17/23 03:37 05/17/23 03:07 High Flow Nasal Cannula 50 05/17/23 03:00 05/17/23 02:37 High Flow Nasal Cannula 50 05/17/23 02:21 High Flow Nasal Cannula 05/17/23 02:20 98 High Flow Nasal Cannula 40 05/17/23 02:07 05/17/23 02:07 05/17/23 02:00 05/17/23 01:37 05/17/23 01:37 High Flow Nasal Cannula 05/17/23 01:22 High Flow Nasal Cannula 30 70 05/17/23 01:00 05/17/23 00:37 05/17/23 00:37 05/17/23 00:32 05/17/23 00:30 05/17/23 00:30 Non-rebreather 15 Lab & Micro Results (Past 24 Hours) RBC 3.09 M/uL (4.70-6.10) L 05/17/23 WBC 12.52 K/ul (4.8-10.8) H 05/17/23 Hgb 9.3 g/dl (14.0-18.0) L 05/17/23 Hct 28.0 % (42.0-52.0) L 05/17/23 MCV 90.6 fL (80.0-100.0) 05/17/23 MCH 30.1 pg (25.0-34.0) 05/17/23 MCHC 33.2 g/dL (32.0-36.0) 05/17/23 RDW Standard Deviation 50.6 fL (36.4-46.3) H 05/17/23 RDW Coefficient of Variation 15.4 % (11.5-14.5) H 05/17/23 Plt Count 288 K/uL (130-400) 05/17/23 MPV 9.6 fL (9.4-12.4) 05/17/23 Neutrophils (%) (Auto) 84.2 % 05/17/23 Lymphocytes (%) (Auto) 1.9 % 05/17/23 Monocytes # (Auto) 0.91 K/uL (0.11-0.59) H 05/17/23 Eosinophils # (Auto) 0.03 K/uL (0.00-0.50) 05/17/23 Immature Granulocyte % (Auto) 5.8 % 05/17/23 Neutrophils # (Auto) 10.55 K/uL (1.40-6.50) H 05/17/23 Lymphocytes # (Auto) 0.24 K/uL (1.20-3.40) L 05/17/23 Monocytes # (Auto) 0.91 K/uL (0.11-0.59) H 05/17/23 Eosinophils # (Auto) 0.03 K/uL (0.00-0.50) 05/17/23 Basophils # (Auto) 0.07 K/uL (0.00-0.20) 05/17/23 Immature Granulocyte # (Auto) 0.72 K/uL (0.01-0.20) H 05/16 Na 135 mmol/L (136-145) L 05/17/23 K 3.4 mmol/L (3.5-5.1) L 05/17/23 Cl 99 mmol/L (98-107) 05/17/23 CO2 29 mmol/L (21-32) 05/17/23 Anion Gap 7 (3-11) 05/17/23 BUN 22 mg/dl (6-23) 05/17/23 Creatinine 1.26 mg/dl (0.6-1.4) 05/17/23 Estimated GFR ( Amer) 63.8 ml/min 05/17/23 Estimated GFR (Non-Af Amer) 55.0 ml/min 05/17/23 BUN/Creatinine Ratio 17.5 (10-20) 05/17/23 Glu 137 mg/dl (70-99(Fasting)) H 05/17/23 Ca 8.1 mg/dl (8.6-10.3) L 05/17/23 Phosphorus Level 2.4 mg/dl (2.5-4.9) L 05/17/23 Direct Bilirubin Pending 05/17/23 Mg 1.3 mg/dl (1.7-2.4) L 05/17/23 03:40 Calcium Level 8.1 mg/dl (8.6-10.3) L 05/17/23 03:40 Prothromb Time International Ratio 1.2 (0.9-1.1) H 05/17/23 07 :29 Gian Test Pass 05/17/23 00:15 Microbiology 05/11/23 12:50 Aerobic Blood Culture - Final Blood No growth in Aerobic bottle after 5 days. Anaerobic Blood Culture - Final No growth in Anaerobic bottle after 5 days. 05/11/23 07:35 Aerobic Blood Culture - Final Blood No growth in Aerobic bottle after 5 days. Anaerobic Blood Culture - Final No growth in Anaerobic bottle after 5 days. 05/14/23 09:00 Gram Stain - Final Bronch Wash,Left Lower Lobe Bronchial Culture - Final Light normal thad. 05/11/23 05:45 Aerobic Blood Culture - Final Blood No growth in Aerobic bottle after 5 days. Anaerobic Blood Culture - Final No growth in Anaerobic bottle after 5 days. 05/11/23 05:45 Aerobic Blood Culture - Final Blood No growth in Aerobic bottle after 5 days. Anaerobic Blood Culture - Final No growth in Anaerobic bottle after 5 days. Diagnostic Findings (Past 24 Hours) Chest X-Ray 05/17/23 00:08 XR chest 1V portable CLINICAL HISTORY: hypoxia TECHNIQUE: Single frontal radiograph of the chest was obtained. Comparison: Comparison is made to chest radiograph 05/11/2023 FINDINGS: No lines and tubes are seen. The cardiomediastinal silhouette is obscured. Bilateral lower lung predominant airspace opacities are seen. No evidence of pleural effusion or pneumothorax. IMPRESSION: Bilateral lower lung predominant airspace opacities which may represent atelectasis, pneumonia, and/or aspiration. This is stable to minimally enlarged from prior exam. ACT 112: Negative or not required by law. Electronically signed by: Reese Garrison M.D. 05/17/2023 8:39 AM Chest CTA 05/17/23 00:31 Exam(s): CTA CHEST W/WO Contrast IV Amt: 119 cc's of optiray 320 EXAM: CT Angiography Chest Without and With Intravenous Contrast CLINICAL HISTORY: Reason for exam: acute hypoxia. TECHNIQUE: Axial computed tomographic angiography images of the chest without and with intravenous contrast. CTDI is 16.49 mGy and DLP is 565.42 mGy-cm. Automated exposure control was utilized for the study. A dose lowering technique was utilized adhering to the principles of ALARA. MIP reconstructed images were created and reviewed. CONTRAST: Patient received 119 cc's of optiray 320 of IV contrast COMPARISON: No relevant prior studies available. FINDINGS: Pulmonary arteries: Motion artifact limits evaluation. Despite this, no evidence of pulmonary emboli within the outflow tract or proximal branches. Aorta: Atherosclerotic disease. No thoracic aortic aneurysm. Lungs: Prominent areas of dependent consolidation within the lungs with additional nondependent areas of airspace disease. Findings likely relate to infection/aspiration changes. Consider follow-up imaging to ensure resolution. Severe upper lobe predominant centrilobular emphysema. Pleural space: Small bilateral pleural effusions which may relate to volume overload. No pneumothorax. Heart: Coronary artery calcifications. No cardiomegaly. No significant pericardial effusion. No evidence of RV dysfunction. Bones/joints: Degenerative changes in the spine. No acute fracture. No dislocation. Soft tissues: Unremarkable. Lymph nodes: Unremarkable. No enlarged lymph nodes. Kidneys and ureters: Simple bilateral renal cysts. No follow-up of these simple cysts is necessary. Calculi within the right kidney which may relate to nonobstructive calculi. Vascular calcifications are also possible. IMPRESSION: 1. Motion artifact limits evaluation. Despite this, no evidence of pulmonary emboli within the outflow tract or proximal branches. 2. Prominent areas of dependent consolidation within the lungs with additional nondependent areas of airspace disease. Findings likely relate to infection/aspiration changes. Consider follow-up imaging to ensure resolution. 3. Severe upper lobe predominant centrilobular emphysema. 4. Other incidental findings as described. Electronically signed by: Indio Garrett MD 05/17/23 04:08 AM Venous Doppler Study 05/17/23 00:35 Exam(s): US VENOUS BILATERAL LOWER EXTREMITIES EXAM: US Duplex Bilateral Lower Extremities Veins CLINICAL HISTORY: Reason for exam: LE swelling, hypoxia, r/o DVT. TECHNIQUE: Real-time duplex ultrasound scan of the bilateral lower extremity veins integrating B-mode two-dimensional vascular structure, Doppler spectral analysis, color flow Doppler imaging and compression. COMPARISON: No relevant prior studies available. FINDINGS: Right deep veins: Unremarkable. No DVT in the right common femoral, femoral, proximal deep femoral or popliteal veins. The veins demonstrate normal color flow, are normally compressible, with normal phasic flow and/or augmentation response. Right superficial veins: Unremarkable. No thrombus in the visualized right great saphenous vein. Left deep veins: Nonocclusive thrombus noted within the left common femoral vein, left greater saphenous vein, and left superficial femoral vein. Otherwise no evidence of thrombus within the visualized left lower extremity. Left superficial veins: See above. Soft tissues: No acute findings. No popliteal cyst. IMPRESSION: Nonocclusive thrombus noted within the left common femoral vein, left greater saphenous vein, and left superficial femoral vein. Otherwise no evidence of thrombus within the visualized left lower extremity. Electronically signed by: Indio Garrett MD 05/17/23 05:20 AM I & O Totals 24 Hours 05/16/23 05/17/23 05/18/23 06:59 06:59 06:59 Intake Total 380 / 380 350 / 350 172.500 / 172.500 Output Total 1520 / 1520 2550 / 2550 Balance -1140 / -1140 -2200 / -2200 172.500 / 172.500 Cumulative 05/11/23 05:19 thru 05/17/23 09:22 Intake Total 7174.167 Output Total 54630 Balance -4673.833 RT Ventilator Mngmt (Last Documented) Ventilator Ordered Settings Respiratory Rate 20 05/17/23 07:24 Fraction of Inspired Oxygen 50 05/17/23 04:00 Ventilator - PT Measurements Respiratory Rate 20 PG Care Time/CCT Total # of Minutes Spent Total Time Spent with Patient: Total time spent is greater than 50% in coordination of care (as documented) at patient's floor/unit and/or counseling patient: Coding Level of Care Code 39125 SUB INP/OBS CARE 3/50MIN Diagnoses Cavitary lesion of lung J98.4 Centrilobular emphysema J43.2 COPD type: emphysema Emphysema type: centrilobular
[2023-05-17 10:10] LABS: Albumin Level 2.3 gm/dl (3.4-5.0); Bilirubin Direct 0.2 mg/dl (0-0.2); Bilirubin,Total 0.5 mg/dl (0.2-1.0); Total Protein 5.8 gm/dl (6.0-8.3)
[2023-05-17 11:37] LABS: Adenovirus PCR Not Detected (NotDetected); Bordetella parapertussis PCR Not Detected (NotDetected); Bordetella pertussis PCR Not Detected (NotDetected); Chlamydia pneumoniae PCR Not Detected (NotDetected); Coronavirus 229E PCR Not Detected (NotDetected); Coronavirus CoV-2 (COVID19)PCR Not Detected (NotDetected); Coronavirus HKU1 PCR Not Detected (NotDetected); Coronavirus NL63 PCR Not Detected (NotDetected); Coronavirus OC43PCR Not Detected (NotDetected); Human Metapneumovirus PCR Not Detected (NotDetected); Influenza A PCR Not Detected (NotDetected); Influenza B PCR Not Detected (NotDetected); Mycoplasma pneumoniae PCR Not Detected (NotDetected); Parainfluenza Virus 1 PCR Not Detected (NotDetected); Parainfluenza Virus 2 PCR Not Detected (NotDetected); Parainfluenza Virus 3 PCR Not Detected (NotDetected); Parainfluenza Virus 4 PCR Not Detected (NotDetected); Respiratory Syncytial VirusPCR Not Detected (NotDetected); Rhinovirus/Enterovirus PCR Not Detected (NotDetected)
[2023-05-17] MEDS ORDERED: Nursing to Pharmacy Communication SCH (12:30)
--- NOTE | 2023-05-17 15:33 | Hospitalist Progress Note ---
Date of Service May 17, 2023 Assessment & Plan (1) Acute and chronic respiratory failure with hypoxia: Plan: Initially slowly improved, related to hemoptysis and aspirated blood, p seudomonas pneumonia chronic resp failure is 2nd to COPD, lung ca, recent extensive pneumonia typically on 3L NC O2 at rest, 6L NC O2 with activity O2 sat goal >=90% Event overnight 05/15-05/16 with fever and transient worse hypoxia requiring 100% HF O2 for a time, back on nasal cannula by this afternoon. Also had fever. Repeat CTPA neg for PE, bibasilar consolidations. DVT on duplex. Potentially a mucus plugging event Also got IV lasix, could have had pulmonary edema but would not explain fever -no need to double cover the pseudomonas which is castellon sensitive -consider changing back to pip-tazo if high fevers recur -continue acapella, IS, mobility -reviewed recs from Dr. Foote (2) Left leg DVT: Plan: Found on duplex 05/16 and asymptomatic. Anticoagulation had been held because of hemoptysis/oropharyngeal bleeding -no significant recent bleeding (only light blood streaks in sputum today) so will try to anticoagulate with IV heparin and change back to apixaban if tolerating -stop aspirin -if he cannot be successfully anticoagulated, discuss IVC filter (3) Cavitary lesion of lung: Plan: 6.3cm, LLL - NEW in comparison to previous CT chest (last CT was 04/21/23), presented with major hemoptysis treated with TXA, anticoagulation stopped. Bleeding from pulmonary hemorrhage vs swallowed and aspirated blood from posterior nosebleed? He gave no history of nosebleed but his reports he had NT suctioning during last admission. he just finished a prolonged course of IV cefepime 3 days ago at his home for pseudomonas pneumonia discussed with ID - thought most likely cavitary lesion related to evolution of previous (severe) pseudomonas pneumonia with consolidation in same location LLL on previous CT. Concern that pseudomonas may quickly develop resistance so sputum sample would be extremely helpful. TB unlikely since cavity developed only over 2 weeks, BAL smear and QF gold negative. Also underlying lung cancer, which if progressive could cause hemoptysis and cavitary lesion. Underwent bronchoscopy 05/[address] Khan had blood back of throat but no blood seen in lung, therefore source of blood more likely nasopharyngeal or sinus sputum from 05/12 with Pseudomonas, remains castellon-sensitive bronch BAL Cx results - light normal thad. AFB smears neg x 2 BAL samples, cytology neg, fungitell P - current hospital isolation policy prohibits dc of isolation until negative culture. initially treated with pip-tazo, changed cefepime based on sensis of Pseudomonas in sputum - ID recommends 4 week course (through 06/07) option to change to oral levaquin for final week for pseudomonas pneumonia -I reviewed CT films from 05/16 and there is bibasilar consolidation but no visible cavity -I consented him for midline but discussed with IV team and US guided IV will be good for his remaining three weeks of ABX - will place closer to discharge -arrange home infusion vs rehab other tests quantiferon gold test NEG, galactomannan neg, B-1,3-D-glucan positive, aspergillus Ag pending, PJP PCR pending, Legionella PCR pending, Histo/Blasto PCR pending, Cocci DNA pending (4) Blood in mouth of unknown source: Plan: -see above -aspirin and DOAC were stopped -resume ASA (5) Multifocal pneumonia: Plan: had such during his prior hospitalization in 04/2023, pseudomonas pneumonia persists complicated by chemo-induced pancytopenia and septic shock recent 14-day course of IV cefepime -see above (6) Acute blood loss anemia: Plan: 2nd to #3 his BPs are low or low-normal cortisol level is >20 transfused 1 unit RBCs 05/10 with some increase in Hg. >10 today (7) Chronic systolic CHF (congestive heart failure): Plan: echo 04/2023 - EF 45-50% was going to follow with [facility] [place] [facility] after recent hospitalization he has considerable LE edema on exam he had such during prior hospitalization and was diuresed during that recent stay his edema persists despite use of daily lasix at home low albumin of 2.5 is contributing to his edema as well -had IV lasix overnight 05/15-05/16, BP low today -cont oral lasix (8) PAF (paroxysmal atrial fibrillation): Plan: diagnosed with such in the ICU during prior hospitalization needed IV amiodarone during that stay with conversion to NSR discharged on Eliquis + amiodarone Eliquis held because of oropharyngeal bleeding or hemoptysis cont amiodarone to maintain NSR -on trial of heparin currently for DVT (9) Abnormal LFTs: Plan: seen during the prior hospitalization LFTs remain mildly high but stable (10) Adenocarcinoma of left lung, stage 3: Plan: dx 01/2023 stage 3a s/p radiation along with chemotherapy last chemo - 04/20/23 - carboplatin/paclitaxel follows with Dr Ro[facility] (11) History of abdominal aortic aneurysm repair: Plan: 2016 (12) Chronic obstructive pulmonary disease: Plan: severe emphysema on CTs with resulting chronic hypoxic resp failure on home O2 prior heavy tobacco dependence cont home inhalers Plan replaced hypokalemia and hypomagnesemia 05/16 nodularity on vocal cords, hoarse voice - improving on nystatin s/s. Outpatient ENT follow up pt's updated at bedside 05/10, 05/13, 05/14 Admission and Anticipated Discharge Date Admission Date: May 11, 2023 Subjective Overnight events - was on commode, thought he was panicking related to delayed response from staff, became much more hypoxic requiring 100% O2 and febrile, code purple called and transferred back to PCU Doing better this AM, doesn't feel increase in dyspnea, fever resolved though low grade this afternoon Found to have LLE DVT. CTPA negative for PE, bibasilar consolidations. Got dose of levofloxacin and IV lasix No chest pain. No leg pain or swelling (except for both ankles/feet unchanged to better) Physical Exam 2 Physical Exam: PHYSICAL EXAMINATION Last 24h vital signs reviewed, see documentation in flowsheet General: comfortable appearing, no distress, sitting in bed HEENT: Normocephalic, atraumatic, pupils round and equal, sclerae anicteric, no conjunctival injection, moist mucus membranes. voice is louder today Lungs: Normal respiratory effort. Prolonged expiratory phase. Diminished throughout. Coarse crackles and diminished in bases. Small blob of green/yellow sputum in cup with mild blood streaks Heart: Regular rate and rhythm, no murmurs. No JVD Abdomen: Soft, nontender, nondistended. Bowel sounds present. Extremities: Warm, dry, well-perfused. 1+ extremity edema to mid chatman improved. Neuro: Alert and oriented x 4, face symmetric, moves 4 extremities well Psych: Normal affect and behavior Results & Data Results & Data Vital Signs (Past 12 Hours) Vital Signs Temp Pulse Pulse Resp BP BP Pulse Ox 05/17/23 15:05 90/57 L 04/07/24 15:05 37.8 C H 87 15 98 05/17/23 15:00 37.8 C H 100 H 19 97 05/17/23 14:00 37.5 C 86 18 97 05/17/23 11:03 36.8 C 72 16 92/65 L 96 05/17/23 11:00 37.1 C 18 96 05/17/23 10:37 37.0 C 72 14 100 05/17/23 10:37 92/65 L 05/17/23 10:07 36.9 C 79 23 95 05/17/23 10:07 111/68 05/17/23 10:00 36.9 C 75 13 92 05/17/23 09:37 37.0 C 80 15 91 05/17/23 09:37 107/62 05/17/23 09:07 37.0 C 76 13 97 05/17/23 09:07 108/62 05/17/23 09:00 37.0 C 71 15 98 05/17/23 08:37 37.0 C 72 18 99 05/17/23 08:37 91/64 L 05/17/23 08:07 104/62 05/17/23 08:07 37.0 C 73 10 L 94 05/17/23 08:00 37.0 C 27 H 93 05/17/23 08:00 05/17/23 08:00 72 05/17/23 07:37 37.1 C 78 15 96 05/17/23 07:37 102/59 L 05/17/23 07:24 78 20 95 05/17/23 07:07 89/53 L 05/17/23 07:07 37.2 C 65 14 96 05/17/23 07:00 37.2 C 64 13 96 05/17/23 07:00 37.4 C 81 22 108/62 96 05/17/23 06:37 37.3 C 65 18 96 05/17/23 06:37 98/58 L 05/17/23 06:07 37.4 C 69 10 L 95 05/17/23 06:07 96/61 L 05/17/23 06:00 37.4 C 72 13 96/61 L 94 05/17/23 05:37 37.5 C 70 15 96 05/17/23 05:07 93/58 L 05/17/23 05:07 37.7 C H 78 14 95 05/17/23 05:00 37.7 C H 73 15 96 05/17/23 04:37 93/57 L 05/17/23 04:37 37.9 C H 75 18 96 05/17/23 04:07 38.1 C H 71 16 99 05/17/23 04:07 94/61 L 05/17/23 04:00 72 18 94 05/17/23 04:00 38.1 C H 71 16 99 05/17/23 03:37 99/57 L 05/17/23 03:37 38.3 C H 75 16 99 O2 Del Method O2 Flow Rate FiO2 05/17/23 15:05 05/17/23 15:05 05/17/23 15:00 05/17/23 14:00 05/17/23 11:03 Nasal Cannula 5 05/17/23 11:00 05/17/23 10:37 05/17/23 10:37 05/17/23 10:07 05/17/23 10:07 05/17/23 10:00 05/17/23 09:37 05/17/23 09:37 05/17/23 09:07 05/17/23 09:07 05/17/23 09:00 05/17/23 08:37 05/17/23 08:37 05/17/23 08:07 05/17/23 08:07 05/17/23 08:00 05/17/23 08:00 Room Air 05/17/23 08:00 05/17/23 07:37 05/17/23 07:37 05/17/23 07:24 Nasal Cannula 7 05/17/23 07:07 05/17/23 07:07 05/17/23 07:00 05/17/23 07:00 Room Air 05/17/23 06:37 05/17/23 06:37 05/17/23 06:07 05/17/23 06:07 05/17/23 06:00 High Flow Nasal Cannula 50 05/17/23 05:37 High Flow Nasal Cannula 50 05/17/23 05:07 05/17/23 05:07 05/17/23 05:00 05/17/23 04:37 05/17/23 04:37 High Flow Nasal Cannula 50 05/17/23 04:07 05/17/23 04:07 05/17/23 04:00 High Flow Nasal Cannula 25 50 05/17/23 04:00 High Flow Nasal Cannula 50 05/17/23 03:37 05/17/23 03:37 Laboratory Results 05/17/23 03:40 05/17/23 03:40 PG Care Time/CCT Total # of Minutes Spent Total Time Spent with Patient: Total time spent is greater than 50% in coordination of care (as documented) at patient's floor/unit and/or counseling patient: Coding Level of Care Code 58568 SUB INP/OBS CARE 3/50MIN Diagnoses Acute and chronic respiratory failure with hypoxia J96.21 Left leg DVT I82.402 Cavitary lesion of lung J98.4 Blood in mouth of unknown source K13.79 Multifocal pneumonia J18.9 Acute blood loss anemia D62 Chronic systolic CHF (congestive heart failure) I50.22 PAF (paroxysmal atrial fibrillation) I48.0 Abnormal LFTs R79.89 Adenocarcinoma of left lung, stage 3 C34.92 History of abdominal aortic aneurysm repair Z98.890 Centrilobular emphysema J43.2 COPD type: emphysema Emphysema type: centrilobular (12) 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
[2023-05-17 17:40] LABS: ANTI-Xa, UFH(UnfractionatedHep 0.58 IU/ml (0.3-0.7)
--- NOTE | 2023-05-17 18:42 | Communication Note ---
Date of Service: May 17, 2023 Febrile again this afternoon Changed cefepime back to pip-tazo in case this is a drug fever or needing broader coverage BAL with shelia Will d/w ID in AM
[2023-05-17] MEDS: PIPERACILLIN/TAZOBACTAM 4.5 GM in DEXTROSE 5% MINI-B 100 ML IV ONE (19:40)
[2023-05-17 19:43] LABS: Legionella DNA, Source BAL; Legionella Species DNA NOT DETECTED; Legionella pneumophila DNA NOT DETECTED
[2023-05-17] MEDS: ALBUT/IPRATROP 3MG/0.5MG NEB 3 ML VIAL ONE (23:13)
[2023-05-17] MEDS: PIPERACILLIN/TAZOBACTAM 4.5 GM in DEXTROSE 5% MINI-B 100 ML IV SCH (23:14)
[2023-05-18] MEDS ORDERED: levoFLOXacin/D5W 750 MG/150 ML BAG IV SCH (00:30)
[2023-05-18 06:12] LABS: Hematocrit (blood only) 27.6 % (42.0-52.0); Hemoglobin 8.9 g/dl (14.0-18.0); Mean Corpuscular Hemoglobin 30.1 pg (25.0-34.0); Mean Corpuscular Hgb Conc 32.2 g/dL (32.0-36.0); Mean Corpuscular Volume 93.2 fL (80.0-100.0); Mean Platelet Volume 9.7 fL (9.4-12.4); Platelet Count 262 K/uL (130-400); RDW Coefficient of Variation 15.5 % (11.5-14.5); RDW Standard Deviation 52.5 fL (36.4-46.3); Red Blood Count 2.96 M/uL (4.70-6.10); White Blood Count 10.65 K/ul (4.8-10.8)
[2023-05-18 06:40] LABS: ANTI-Xa, UFH(UnfractionatedHep 0.59 IU/ml (0.3-0.7); BUN Creatinine Ratio 13.3 (10-20); Calcium 8.5 mg/dl (8.6-10.3); Creatinine Clr Calc Pharmacy 45.9 ml/min; Est GFR (African American) 62.6 ml/min; Magnesium 1.8 mg/dl (1.7-2.4); Phosphorus 3.2 mg/dl (2.5-4.9); Potassium 3.4 mmol/L (3.5-5.1)
[2023-05-18 06:47] LABS: Basophils # (auto) 0.09 K/uL (0.00-0.20); Basophils % (auto) 0.8 %; Eosinophils # (auto) 0.16 K/uL (0.00-0.50); Eosinophils % (auto) 1.5 %; Immature Granulocytes # (auto) 0.79 K/uL (0.01-0.20); Immature Granulocytes % (auto) 7.4 %; Lymphocytes # (auto) 0.74 K/uL (1.20-3.40); Lymphocytes % (auto) 6.9 %; Monocytes % (auto) 9.4 %; Neutrophils # (auto) 7.87 K/uL (1.40-6.50); Polychromasia 2+
--- NOTE | 2023-05-18 07:51 | Pulmonology Progress Note ---
Date of Service May 18, 2023 Assessment & Plan (1) Cavitary lesion of lung: (2) Chronic obstructive pulmonary disease: COPD type: emphysema Emphysema type: centrilobular Qualified Code(s): J43.2 - Centrilobular emphysema Plan Impression: 78-year-old male with stage IIIb adenocarcinoma of the lung status post chemoradiation therapy presenting to the hospital for recurrent pneumonia. Previous hospitalization was found to have Pseudomonas bacteremia. Now with left lower lobe cavitary lesion. Sputum growing Pseudomonas. Status post bronchoscopy. AFB stains and cultures negative to date. He developed shortness of breath yesterday and a CT angiogram was unrevealing however lower extremity ultrasound did show clot. He is now on a heparin infusion. Recommendations: 1. Cavitary lung lesion: Status post bronchoscopy 05/13. Washings performed from the left lower lobe and sent for cultures and cytology. Cytology negative. QuantiFERON gold came back negative. Infectious disease and myself have recommended discontinue of isolation however apparently the patient remains in isolation due to infection control. Recommend follow-up CT scan in 6 to [address] Khan. Now back on Zosyn. The Sruthi identified from the bronchoscopy specimen is not pathogenic and does not require treatment. Will defer antibiotics to ID however cefepime or Zosyn should be adequate. He did have a low-grade fever last night but is white count is improving and clinically the patient is much better so would favor continued therapy with cefepime. 2. Hemoptysis: Resolved. No evidence of bleeding from the airway. Continue to observe clinically. 3. ENT consultation given nodularity on vocal cords per primary service. Can be done as an outpatient. 4. Hypoxemia: Continue to wean oxygen as tolerated. Try and defend oxygen saturations around 90%. Oxygen requirement improved today. Precipitating events from last night are unclear. He could have had a mucous plug. If he was off his oxygen, that would account for his symptoms as well or if the oxygen were inadvertently discontinued from the wall. Regardless at this point time he feels better. 5. Lower extremity DVT: In the setting of active malignancy would recommend lifelong anticoagulation. Okay to transition off of heparin to oral anticoagulants. He will need to follow with his jet wiper in the outpatient setting. Will follow peripherally as the patient will require prolonged antibiotics, outpatient pulmonary follow-up, and potentially rehab. Increase activity as tolerated and ambulation with incentive spirometry may be beneficial. Feel free to contact us with specific questions. Admission and Anticipated Discharge Date Admission Date: May 11, 2023 Subjective Patient seen and examined. EMR reviewed. Discussed with bedside nurse. The patient reports he is feeling better. His oxygen requirement is decreasing. He is not coughing or expectorating phlegm. No chest pain or palpitations. He is anxious to get up and start moving around. Review of Systems 2 Review of Systems: All systems reviewed & are unremarkable except as noted in Subjective Physical Exam 2 Physical Exam: Constitutional: chronically ill appearing, NAD HEENT: NCAT, scab in L nare, several lesions on the soft/hard palate, erythema surrounding this region CV: regular rhythm, no murmur appreciated, extremities well-perfused, 2+ pitting edema bilaterally Resp: globally decreased breath sounds, no wheeze GI: soft, nondistended, nontender, BS normoactive MSK: no gross deformities appreciated Skin: warm, dry, no rash appreciated Neuro: alert, oriented, no focal neurologic deficit appreciated Results & Data Results & Data Vital Signs (Past 12 Hours) Vital Signs Temp Pulse Resp BP Pulse Ox O2 Del Method O2 Flow Rate 05/18/23 02:59 36.8 C 90 21 101/62 90 Nasal Cannula 05/17/23 23:30 Nasal Cannula 5 05/17/23 23:00 36.9 C 73 22 106/67 93 Nasal Cannula 05/17/23 20:00 Nasal Cannula 5 Laboratory Results 05/18/23 05:46 05/18/23 05:46 Diagnostic Findings No new imaging PG Care Time/CCT Total # of Minutes Spent Total Time Spent with Patient: Total time spent is greater than 50% in coordination of care (as documented) at patient's floor/unit and/or counseling patient: Coding Level of Care Code 97976 SUB INP/OBS CARE 2/35MIN Diagnoses Cavitary lesion of lung J98.4 Centrilobular emphysema J43.2 COPD type: emphysema Emphysema type: centrilobular
--- NOTE | 2023-05-18 08:48 | Infectious Disease Progress Nt ---
Date of Service May 18, 2023 Assessment & Plan (1) Multifocal pneumonia: (2) Pseudomonas aeruginosa infection: (3) Left leg DVT: (4) Fever: Plan 78yo M with h/o metastatic lung cancer on chemo/XRT (gets chemo on Mondays, no port, on carboplatin/paclitaxel since 04/20/23), PTX after biopsy, COPD, chronic hypoxia on home O2, recent admission 04/20-05/04 with fever, SOB, hypoxia and tachycardia along with productive cough f/w septic shock and respiratory failure 2/2 multilobar PNA and PsA bacteremia (s/p 14d of cefepime, eot 05/06) who presented on 05/10 with new PNA. He was seemingly improving on the cefepime, but once the cefepime was completed, he seemed to have a more difficult time breathing. No vomiting of blood, blood from the rectum or significant fevers. Admitted on 05/10 to ICU. Afebrile, 5L NC, soft BPs. CT Chest showed patchy bilateral airspace opacities redemonstrated within a bibasilar prominent distribution suggestive of multifocal pneumonia; interval development of a focus of cavitary pneumonia within the left lower lobe measuring up to 6.3 cm. Patient started on IV Zosyn, had clinical improvement and stepped down from ICU 05/11. Sputum cx on 05/12 with PSA-castellon-S. S/p bronchoscopy 05/13, no evidence of bleeding on bronchoscopy, washings performed from the left lower lobe and sent for cultures and cytology. BAL AFB smear negative, culture with light thad. Course notable for hypoxia and tachycardia on 05/16 (he had gotten off bed commode when O2 dropped to 80s). CXR without significant change. CTA chest 05/16 negative for PE, prominent areas of dependent consolidation with additional nondependent areas of ASD. BL LE dopplers with nonocclusive thrombus in LLE. Patient had been off of anticoag due to hemoptysis. Also with fever 05/16 in the morning and recurrence in the evening. Currently O2 4L NC. BPs seem to be relatively low on 05/16 (lowest 89/53). WBC was 12.52 yesterday now 10.65. Patient symptomatically from the lung standpoint is doing well. I do not think he needs a different abx for his lung process and either cefepime or zosyn should be adequate. He does not endorse aspiration, says food may go down the wrong pipe sometimes but thats not common. Regarding his fevers, he doesnt have any clear localizing signs on examination. He does have a new DVT noted which could also cause fevers. However, I do think we should repeat a set of blood cultures. He does also have a hair, Im not sure how long thats been in place. If its been some time, then would change it and get a sample for UA/UCx to complete fever workup. Will keep him on zosyn for now while undergoing workup. Note his beta-d glucan was positive from 05/10. I agree with pulmonary that Sruthi from BAL is unlikely pathogenic. He hasnt had chemo since 04/19 and is not currently immunosuppressed. With improving respiratory status, negative BCx from 05/10, and no other clear localizing site of infection, its possible this could be false positive (which can result in many settings including blood transfusion which he had received earlier on 05/10 prior to BDG collection). # Fever on 05/16 # Cavitary PNA cx with castellon-sensitive P aeruginosa # LLE thrombus # Recent admission with multilobar PNA and PsA bacteremia # h/o lung cancer on chemo # ABHISHEK - improved # Afib noted last admission, on amiodarone - Neida ordered a set of blood cultures - if hair has been present for some time, then would change and get sample for UA and UCx for fever workup - continue zosyn for now, Neida increased frequency to q6h for Pseudomonas coverage - monitor fever curve ID will continue to follow. If questions or concerns, contact Infectious Disease Call Center . Chanelle Neal MD [facility], Division of Infectious Diseases [facility]: [phone] Admission and Anticipated Discharge Date Admission Date: May 11, 2023 Subjective Subsequent visit was provided via telemedicine using two-way real-time interactive telecommunication between the patient and the telemedicine provider. For the duration of the visit, the provider was performing the assessment from a different facility than the patient. This includesuse of bluetooth stethoscope forauscultationperformed by the telepresenter that the telemedicine provider can hear if described in the physical exam. Assistant Passenger Locomotive Engineer contact information: Please call [facility] Center [phone]. (Phone Number For Physician Use Only) After establishing a telemedicine visit, patient was: Patient was verified with two unique identifiers, Patient/authorized rep acknowledged consent and understanding and Gave permission to continue telehealth session Time Spent with Patient: Subsequent => 55 min Patient reports feeling well. Denies having any shortness of breath or sputum production. He has not had any abdominal pains or n/v/d. Notes feeling chills/hot yesterday when he had a fever. Not having trouble swallowing. He does have a cold sore that started towards the end of his last admission. Notes mouth soreness at the roof of his mouth that is ongoing x 1 week, but feels its gett ing better with nystatin. Physical Exam Physical Exam: General: Awake, alert, no acute distress HEENT: NC/AT, EOMI, mmm, erythematous tongue, cold sore on right vermicular border, sores on roof of mouth Neck: supple, no LAD Lungs: respirations non-labored Heart: nl peripheral perfusion Abdomen: soft, NT/ND Back: no spinal tenderness Ext: 1+ LE edema Skin: no rash : hair with clear yellow urine Results & Data Vital Signs (Past 12 Hours) Vital Signs Temp Pulse Resp BP Pulse Ox O2 Del Method O2 Flow Rate 05/18/23 02:59 36.8 C 90 21 101/62 90 Nasal Cannula 05/17/23 23:30 Nasal Cannula 5 05/17/23 23:00 36.9 C 73 22 106/67 93 Nasal Cannula
[2023-05-18] MEDS: POTASSIUM CHLORIDE CRTAB 20 MEQ TABCR PO ONE (12:30)
[2023-05-18 13:28] LABS: Appearance Urine Clear (Clear); Bacteria Urine Automated None Seen (None Seen); Bilirubin Urine Negative (Negative); Blood Urine 1+ (Negative); Color Urine Yellow; Epithelial Cell Urine Auto 0-2 /hpf (0-2); Glucose Urine UA Negative (Negative); Ketones Urine Negative (Negative); Leukocyte Esterase Urine Negative (Negative); Nitrite Urine Negative (Negative); Protein Urine Trace (Negative); Specific Gravity Urine 1.011 (1.000-1.030); Urobilinogen Urine Negative (Negative); WBC Urine Automated 0-5 /hpf (0-5); pH Urine 7.5 (4.5-7.5)
[2023-05-18] MEDS ORDERED: PIPERACILLIN/TAZOBACTAM 4.5 GM in DEXTROSE 5% MINI-B 100 ML IV SCH (14:00)
--- NOTE | 2023-05-18 16:36 | Hospitalist Progress Note ---
Date of Service May 18, 2023 Assessment & Plan (1) Acute and chronic respiratory failure with hypoxia: Plan: Initially slowly improved, related to hemoptysis and aspirated blood, p seudomonas pneumonia chronic resp failure is 2nd to COPD, lung ca, recent extensive pneumonia typically on 3L NC O2 at rest, 6L NC O2 with activity O2 sat goal >=90% Event overnight 05/15-05/16 with fever and transient worse hypoxia requiring 100% HF O2 for a time, back on nasal cannula by this afternoon. Also had fever. Repeat CTPA neg for PE, bibasilar consolidations. DVT on duplex. Potentially a mucus plugging event Also got IV lasix, could have had pulmonary edema but would not explain fever -is back on 4L pnc which is close to his recent baseline O2 -no need to double cover the pseudomonas which is castellon sensitive. changed back to pip-tazo last night with recurrent fever however can probably be back on cefepime tomorrow if no more fevers, discussed with ID -consider drug fever if recurs back on cefepime -continue acapella, IS, mobility -reviewed recs from Dr. Foote (2) Left leg DVT: Plan: Found on duplex 05/16 and asymptomatic. Anticoagulation had been held because of hemoptysis/oropharyngeal bleeding -no significant recent bleeding so will try to anticoagulate with IV heparin and change back to apixaban if tolerating, probably tomorrow -stop aspirin -if he cannot be successfully anticoagulated, discuss IVC filter (3) Cavitary lesion of lung: Plan: 6.3cm, LLL - NEW in comparison to previous CT chest (last CT was 04/21/23), presented with major hemoptysis treated with TXA, anticoagulation stopped. Bleeding from pulmonary hemorrhage vs swallowed and aspirated blood from posterior nosebleed? He gave no history of nosebleed but his reports he had NT suctioning during last admission. he just finished a prolonged course of IV cefepime 3 days ago at his home for pseudomonas pneumonia discussed with ID - thought most likely cavitary lesion related to evolution of previous (severe) pseudomonas pneumonia with consolidation in same location LLL on previous CT. Concern that pseudomonas may quickly develop resistance so sputum sample would be extremely helpful. TB unlikely since cavity developed only over 2 weeks, BAL smear and QF gold negative. Also underlying lung cancer, which if progressive could cause hemoptysis and cavitary lesion. Underwent bronchoscopy 05/[address] Khan had blood back of throat but no blood seen in lung, therefore source of blood more likely nasopharyngeal or sinus sputum from 05/12 with Pseudomonas, remains castellon-sensitive bronch BAL Cx results - light normal thad, shelia not thought to be significant. AFB smears neg x 2 BAL samples, cytology neg, fungitell P - current hospital isolation policy prohibits dc of isolation until negative culture. treating with pip-tazo or cefepime based on sensis of Pseudomonas in sputum (see above) - ID recommends 4 week course (through 06/07) option to change to oral levaquin for final week for pseudomonas pneumonia -I reviewed CT films from 05/16 and there is bibasilar consolidation but no visible cavity -I consented him for midline but discussed with IV team and US guided IV will be good for his remaining three weeks of ABX - will place closer to discharge -arrange home infusion vs rehab other tests quantiferon gold test NEG, galactomannan neg, B-1,3-D-glucan positive not thought to be significant, aspergillus Ag pending, PJP PCR pending, Legionella PCR pending, Histo/Blasto PCR pending, Cocci DNA pending (4) Blood in mouth of unknown source: Plan: -see above, may be from large ulcer roof of mouth -aspirin and DOAC were stopped -stopped ASA but plan to resume DOAC (5) Multifocal pneumonia: Plan: had such during his prior hospitalization in 04/2023, pseudomonas pneumonia persists complicated by chemo-induced pancytopenia and septic shock recent 14-day course of IV cefepime -see above (6) Acute blood loss anemia: Plan: 2nd to #3 his BPs are low or low-normal cortisol level is >20 transfused 1 unit RBCs 05/10 with some increase in Hg. Stable at 9 (7) Chronic systolic CHF (congestive heart failure): Plan: echo 04/2023 - EF 45-50% was going to follow [place] [facility] [facility] [place] recent hospitalization he has considerable LE edema on exam he had such during prior hospitalization and was diuresed during that recent stay his edema persists despite use of daily lasix at home low albumin of 2.5 is contributing to his edema as well -had IV lasix overnight 05/15-05/16 -cont oral lasix (8) PAF (paroxysmal atrial fibrillation): Plan: diagnosed with such in the ICU during prior hospitalization needed IV amiodarone during that stay with conversion to NSR discharged on Eliquis + amiodarone Eliquis held because of oropharyngeal bleeding or hemoptysis cont amiodarone to maintain NSR -on trial of heparin currently for DVT (9) Abnormal LFTs: Plan: seen during the prior hospitalization LFTs remain mildly high but stable (10) Adenocarcinoma of left lung, stage 3: Plan: dx 01/2023 stage 3a s/p radiation along with chemotherapy last chemo - 04/20/23 - carboplatin/paclitaxel follows with Dr Ro[facility] (11) History of abdominal aortic aneurysm repair: Plan: 2016 (12) Chronic obstructive pulmonary disease: Plan: severe emphysema on CTs with resulting chronic hypoxic resp failure on home O2 prior heavy tobacco dependence cont home inhalers Plan replaced hypokalemia and hypomagnesemia 05/16 nodularity on vocal cords, hoarse voice - improving on nystatin s/s. Outpatient ENT follow up recommended by pulmonary repeat chest CT recommended with Dr. Khan in 6-8 weeks pt's updated at bedside 05/10, 05/13, 05/14 Admission and Anticipated Discharge Date Admission Date: May 11, 2023 Subjective doing better, dyspnea at recent baseline and O2 down to 4L has ulcer on roof of mouth with some blood taste, perhaps the original site of his bleeding, but no significant bleeding and no hemoptysis. states this is not painful Physical Exam 2 Physical Exam: PHYSICAL EXAMINATION Last 24h vital signs reviewed, see documentation in flowsheet General: comfortable appearing, no distress, sitting in bed HEENT: Normocephalic, atraumatic, pupils round and equal, sclerae anicteric, no conjunctival injection, moist mucus membranes. voice is louder shallow large ulcer on roof of mouth with large eschar/clot on it Lungs: Normal respiratory effort. Prolonged expiratory phase. Diminished throughout but better than yesterday. crackles and diminished in bases unchanged Heart: Regular rate and rhythm, no murmurs. No JVD Abdomen: Soft, nontender, nondistended. Bowel sounds present. Extremities: Warm, dry, well-perfused. 1+ extremity edema to mid chatman improved. Neuro: Alert and oriented x 4, face symmetric, moves 4 extremities well Psych: Normal affect and behavior Results & Data Results & Data Vital Signs (Past 12 Hours) Vital Signs Temp Pulse Pulse Resp BP Pulse Ox O2 Del Method 05/18/23 15:09 71 05/18/23 11:31 36.5 C 82 16 98/64 L 93 Nasal Cannula 05/18/23 09:41 Nasal Cannula 05/18/23 09:41 72 05/18/23 07:27 37.1 C 90 18 110/75 91 Nasal Cannula O2 Flow Rate 05/18/23 15:09 05/18/23 11:31 4 05/18/23 09:41 5 05/18/23 09:41 05/18/23 07:27 4 Laboratory Results 05/18/23 05:46 05/18/23 05:46 PG Care Time/CCT Total # of Minutes Spent Total Time Spent with Patient: Total time spent is greater than 50% in coordination of care (as documented) at patient's floor/unit and/or counseling patient: Coding Level of Care Code 56740 SUB INP/OBS CARE 3/50MIN Diagnoses Acute and chronic respiratory failure with hypoxia J96.21 Left leg DVT I82.402 Cavitary lesion of lung J98.4 Blood in mouth of unknown source K13.79 Multifocal pneumonia J18.9 Acute blood loss anemia D62 Chronic systolic CHF (congestive heart failure) I50.22 PAF (paroxysmal atrial fibrillation) I48.0 Abnormal LFTs R79.89 Adenocarcinoma of left lung, stage 3 C34.92 History of abdominal aortic aneurysm repair Z98.890 Centrilobular emphysema J43.2 COPD type: emphysema Emphysema type: centrilobular (12) 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
[2023-05-19 06:38] LABS: Hematocrit (blood only) 26.8 % (42.0-52.0); Hemoglobin 8.9 g/dl (14.0-18.0); Mean Corpuscular Hemoglobin 30.8 pg (25.0-34.0); Mean Corpuscular Hgb Conc 33.2 g/dL (32.0-36.0); Mean Corpuscular Volume 92.7 fL (80.0-100.0); Platelet Count 276 K/uL (130-400); RDW Coefficient of Variation 15.6 % (11.5-14.5); RDW Standard Deviation 52.6 fL (36.4-46.3); Red Blood Count 2.89 M/uL (4.70-6.10); White Blood Count 9.64 K/ul (4.8-10.8)
[2023-05-19 06:48] LABS: BUN Creatinine Ratio 11.8 (10-20); Calcium 8.7 mg/dl (8.6-10.3); Creatinine Clr Calc Pharmacy 40.8 ml/min; Est GFR (African American) 54.3 ml/min; Est GFR (Non-African American) 46.8 ml/min; Magnesium 1.7 mg/dl (1.7-2.4); Phosphorus 3.3 mg/dl (2.5-4.9); Potassium 3.8 mmol/L (3.5-5.1)
[2023-05-19 06:52] LABS: ANTI-Xa, UFH(UnfractionatedHep 0.66 IU/ml (0.3-0.7)
[2023-05-19 07:32] LABS: ALC (manual) 0.67 K/uL (1.2-3.4); ANC (manual) 7.71 K/uL (1.4-6.5); Basophils # (manual) 0.19 K/uL (0-0.2); Basophils % (manual) 2 %; Eosinophils % (manual) 1 %; Lymphocytes # (manual) 0.67 K/uL (1.2-3.4); Lymphocytes % (manual) 7 %; Metamyelocytes # (manual) 0.29 K/uL (0-0); Metamyelocytes % (manual) 3 %; Monocytes # (manual) 0.48 K/uL (0.11-0.59); Monocytes % (manual) 5 %; Myelocytes % (manual) 1 %; Neutrophils # (manual) 7.71 K/uL (1.40-6.50); Neutrophils % (manual) 80 %; Promyelocytes % (manual) 1 %
--- NOTE | 2023-05-19 20:46 | Hospitalist Progress Note ---
Date of Service May 19, 2023 Assessment & Plan (1) Acute and chronic respiratory failure with hypoxia: Plan: acute - 2nd to pseudomonas pneumonia extensive w/u including CTA chest x 2, bronchoscopy 05/14/23, numerous labs & cultures, etc have failed to identify another pathogen besides pseudomonas chronic resp failure - 2nd to COPD, lung ca, etc typically on 3L NC O2 at rest, 6L NC O2 with activity (2) Cavitary lesion of lung: Plan: 6.3cm, LLL s/p bronch by Dr Khan on 05/14/23 brushings/cytologies negative for malignancy Quantiferon gold test negative AFB/fungal cultures from bronch negative only + culture showed pseudomonas (3) Blood in mouth of unknown source: Plan: during his bronchoscopy no source of bleeding was found thus, the blood at time of admission was likely nasopharyngeal or pharyngeal in location no recurrent bleeding since then H/H stable (4) Multifocal pneumonia: Plan: had such during his prior hospitalization in 04/2023 complicated by chemo-induced pancytopenia and septic shock evidence of ongoing b/l pneumonia at time of this admission (despite previous 14-day course of IV cefepime for presumed pseudomonas) was on cefepime; changed to IV zosyn 2 nights ago when he had acute decompensation (possibly due to mucous plugging - repeat imaging negative) ID following; if repeat cultures do not show a new pathogen plan to go back to IV cefepime and treat for 3-4 weeks per ID (5) Acute blood loss anemia: Plan: 2nd to #3 s/p 1 unit PRBCs on hospital day #1 H/H stable since (6) Chronic systolic CHF (congestive heart failure): Plan: echo 04/2023 - EF 45-50% was going to follow with [facility] [place] [facility] after recent hospitalization continues with LE edema despite daily lasix low albumin likely contributing to his edema as well recently discovered left leg DVTs probably contributing to LLE edema elevate legs consider gentle compression later in the stay (7) PAF (paroxysmal atrial fibrillation): Plan: diagnosed with such in the ICU during prior hospitalization needed IV amiodarone during that stay with conversion to NSR discharged on Eliquis + amiodarone Eliquis had been on hold due to the bleeding he presented with now on heparin drip for h/o PAF and newly discovered LLE DVT if he remains stable overnight can resume Eliquis tomorrow cont amiodarone to maintain NSR can likely cut back to 200mg daily (8) Abnormal LFTs: Plan: seen during the prior hospitalization lfts have normalized as of a few days ago ok to cont amiodarone, statin, etc (9) Adenocarcinoma of left lung, stage 3: Plan: dx 01/2023 stage 3a s/p radiation along with chemotherapy last chemo - 04/20/23 - carboplatin/paclitaxel follows with Dr Roque, [facility] (10) History of abdominal aortic aneurysm repair: Plan: 2015 (11) Chronic obstructive pulmonary disease: Plan: with resulting chronic hypoxic resp failure on home O2 prior heavy tobacco dependence cont home inhalers (12) Left leg DVT: Plan: as seen on recent doppler cont heparin drip change to Eliquis tomorrow if H/H stable and no nasopharyngeal bleeding plan lifelong Eliquis (13) Vocal cord nodule: Plan: as seen during bronchoscopy laryngeal candidiasis?? send to ENT post-d/c Plan pt's updated at bedside PT, OT zoe progressing nicely Admission and Anticipated Discharge Date Admission Date: May 11, 2023 Subjective sitting in chair during the visit at bedside pt reports feeling much better overall no significant pharyngeal bleeding (minor bleeding hard palate with tooth brushing only) appetite much improved no dyspnea some cough but overall improved strength improved Review of Systems Review of Systems: gen - no fevers cv - no chest pain; ongoing edema pulm - denies dyspnea, denies wheezing GI - moving bowels, no nausea Physical Exam Physical Exam: gen - NAD, sitting in chair, looks much better in comparison to last visit HENT - hard palate with healing ulceration; MMM; no thrush; hoarse voice resolved neck - no JVD heart - RRR, s1 s2, no murmur lungs - scant b/l basilar rales, CTA b/l otherwise abd - soft NT ND BS+ ext - 2+ pitting edema from distal legs down to feet b/l, pulses 2+ b/l feet psych - a/o x 3 Results & Data Results & Data Vital Signs (Past 12 Hours) Vital Signs Temp Pulse Pulse Resp BP Pulse Ox O2 Del Method 05/19/23 19:17 36.8 C 70 16 105/66 91 Nasal Cannula 05/19/23 15:22 36.8 C 74 16 101/68 91 Nasal Cannula 05/19/23 15:11 85 05/19/23 11:38 36.7 C 76 16 94/62 L 94 Nasal Cannula O2 Flow Rate 05/19/23 19:17 4 05/19/23 15:22 4 05/19/23 15:11 05/19/23 11:38 4 Laboratory Results Laboratory Results - last 24 hr 05/18/23 05/19/23 05:46 05:31 WBC 9.64 RBC 2.89 L Hgb 8.9 L Hct 26.8 L MCV 92.7 MCH 30.8 MCHC 33.2 RDW Std Deviation 52.6 H RDW Coeff of Fany 15.6 H Plt Count 276 MPV 10.0 Neutrophils % (Manual) 80 Lymphocytes % (Manual) 7 Monocytes % (Manual) 5 Eosinophils % (Manual) 1 Basophils % (Manual) 2 Metamyelocytes % (Man) 3 Myelocytes % (Man) 1 Promyelocytes % (Man) 1 Neutrophils # (Manual) 7.71 H Total Absolute Neuts 7.71 H Lymphocytes # (Manual) 0.67 L Total Abs Lymphocytes 0.67 L Monocytes # (Manual) 0.48 Eosinophils # (Manual) 0.10 Basophils # (Manual) 0.19 Metamyelocytes # (Man) 0.29 H Myelocytes # (Manual) 0.10 H Promyelocytes # (Man) 0.10 H Blood Smear Review Cancelled Heparin Anti-Xa, Unfract 0.66 Sodium 137 Potassium 3.8 Chloride 100 Carbon Dioxide 31 Anion Gap 6 BUN 17 Creatinine 1.44 H Est Cr Clr Drug Dosing 40.8 Est GFR ( Amer) 54.3 Est GFR (Non-Af Amer) 46.8 BUN/Creatinine Ratio 11.8 Glucose 88 Calcium 8.7 Phosphorus 3.3 Magnesium 1.7 PG Care Time/CCT Total # of Minutes Spent Total Time Spent with Patient: Total time spent is greater than 50% in coordination of care (as documented) at patient's floor/unit and/or counseling patient: Coding Level of Care Code 93303 SUB INP/OBS CARE 2/35MIN Diagnoses Acute and chronic respiratory failure with hypoxia J96.21 Cavitary lesion of lung J98.4 Blood in mouth of unknown source K13.79 Multifocal pneumonia J18.9 Acute blood loss anemia D62 Chronic systolic CHF (congestive heart failure) I50.22 PAF (paroxysmal atrial fibrillation) I48.0 Abnormal LFTs R79.89 Adenocarcinoma of left lung, stage 3 C34.92 History of abdominal aortic aneurysm repair Z98.890 Centrilobular emphysema J43.2 COPD type: emphysema Emphysema type: centrilobular Left leg DVT I82.402 Vocal cord nodule J38.2 (11) 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
[2023-05-20 06:47] LABS: BUN Creatinine Ratio 11.5 (10-20); Calcium 8.9 mg/dl (8.6-10.3); Creatinine Clr Calc Pharmacy 45.2 ml/min; Est GFR (African American) 61.4 ml/min; Potassium 3.6 mmol/L (3.5-5.1)
[2023-05-20 06:50] LABS: ANTI-Xa, UFH(UnfractionatedHep 0.65 IU/ml (0.3-0.7)
--- NOTE | 2023-05-20 09:40 | Infectious Disease Progress Nt ---
Date of Service May 20, 2023 Assessment & Plan (1) Multifocal pneumonia: (2) Pseudomonas aeruginosa infection: (3) Left leg DVT: (4) Fever: Plan 78yo M with h/o metastatic lung cancer on chemo/XRT (gets chemo on Mondays, no port, on carboplatin/paclitaxel since 04/20/23), PTX after biopsy, COPD, chronic hypoxia on home O2, recent admission 04/20-05/04 with fever, SOB, hypoxia and tachycardia along with productive cough f/w septic shock and respiratory failure 2/2 multilobar PNA and PsA bacteremia (s/p 14d of cefepime, eot 05/06) who presented on 05/10 with new PNA. He was seemingly improving on the cefepime, but once the cefepime was completed, he seemed to have a more difficult time breathing. No vomiting of blood, blood from the rectum or significant fevers. Admitted on 05/10 to ICU. Afebrile, 5L NC, soft BPs. CT Chest showed patchy bilateral airspace opacities redemonstrated within a bibasilar prominent distribution suggestive of multifocal pneumonia; interval development of a focus of cavitary pneumonia within the left lower lobe measuring up to 6.3 cm. Patient started on IV Zosyn, had clinical improvement and stepped down from ICU 05/11. Sputum cx on 05/12 with PSA-castellon-S. S/p bronchoscopy 05/13, no evidence of bleeding on bronchoscopy, washings performed from the left lower lobe and sent for cultures and cytology. BAL AFB smear negative, culture with light thad. Course notable for hypoxia and tachycardia on 05/16 (he had gotten off bed commode when O2 dropped to 80s). CXR without significant change. CTA chest 05/16 negative for PE, prominent areas of dependent consolidation with additional nondependent areas of ASD. BL LE dopplers with nonocclusive thrombus in LLE. Patient had been off of anticoag due to hemoptysis. Also with fever 05/16 in the morning and recurrence in the evening. WBC was 12.52 on 05/16 now downtrended. UA with only 0- 5 WBC. Repeat BCx 05/17 are ngtd. Patient symptomatically from the lung standpoint is doing well. No other new infectious source identified. Neida changed abx back to cefepime. Note his beta-d glucan was positive from 05/10. I agree with pulmonary that Sruthi from BAL is unlikely pathogenic. He hasnt had chemo since 04/19 and is not currently immunosuppressed. With improving respiratory status, negative BCx, and no other clear localizing site of infection, its possible this could be false positive (which can result in many settings including blood transfusion which he had received earlier on 05/10 prior to BDG collection). # Fever on 05/16, afebrile since, possibly 2/2 DVT # Cavitary PNA cx with castellon-sensitive P aeruginosa, Quantiferon neg, AFB neg # LLE DVT # Recent admission with multilobar PNA and PsA bacteremia # h/o lung cancer on chemo # ABHISHEK - improved # Afib noted last admission, on amiodarone - Neida stopped zosyn and started cefepime 2g IV q12h (renally dosed for CrCl 45) - can be increased to 3 times daily if CrCl > 60 - he will need treatment with cefepime (dosed 2g IV q12h or 4g IV continuous infusion daily for ease, unless renal function improves) for 4 weeks total for cavitary PNA (start 05/10, eot 06/07) - please note, he cannot be treated with levofloxacin while he is on amiodarone due to drug interaction. His abx therapy will therefore need to be completed with cefepime - please monitor weekly CBC w diff and CMP while on IV abx - outpatient f/u with pulmonary and ID specialist ID will discontinue active follow up at this time. Please do not hesitate to reconsult the Infectious Diseases service as needed. Chanelle Neal MD [facility], Division of Infectious Diseases [facility]: [phone] Admission and Anticipated Discharge Date Admission Date: May 11, 2023 Subjective Subsequent visit was provided via telemedicine using two-way real-time interactive telecommunication between the patient and the telemedicine provider. For the duration of the visit, the provider was performing the assessment from a different facility than the patient. This includesuse of bluetooth stethoscope forauscultationperformed by the telepresenter that the telemedicine provider can hear if described in the physical exam. Hand Sign Writer contact information: Please call [facility] Call Center . (Phone Number For Physician Use Only) After establishing a telemedicine visit, patient was: Patient was verified with two unique identifiers, Patient/authorized rep acknowledged consent and understanding and Gave permission to continue telehealth session Time Spent with Patient: Subsequent => 55 min Patient reprots feeling well. No SOB, abdominal pain, vomiting, diarrhea. Physical Exam Physical Exam: General: Awake, alert, no acute distress HEENT: NC/AT, EOMI, mmm Neck: supple, no LAD Lungs: respirations non-labored Heart: nl peripheral perfusion Abdomen: soft, NT/ND Back: no spinal tenderness Ext: 1+ LE edema Skin: no rash Results & Data Vital Signs (Past 12 Hours) Vital Signs Temp Pulse Resp BP Pulse Ox O2 Del Method O2 Flow Rate 05/20/23 08:00 Nasal Cannula 3 05/20/23 07:16 36.6 C 68 19 122/71 92 Room Air 05/20/23 02:35 36.9 C 70 16 109/66 90 Nasal Cannula 3 05/19/23 23:35 93 Nasal Cannula 3 05/19/23 22:58 36.9 C 72 18 117/71 91 Nasal Cannula 4 Laboratory Results 05/10 RVP: neg 05/10 BD (positive) 05/10 GM: negative 05/10 Quantiferon: neg 05/10 BCX: negative 05/12 SCX: PsA (castellon-S) 05/13 Sputum AFB: smear neg 05/13 BAL: C albicans, AFB smear neg, light normal thad 05/13 pending studies: Coccidiodes, Histo/Blasto, PJP, Aspergillus Ag 05/16 RPP neg 05/17 BCx: ngtd
[2023-05-20] MEDS: CEFEPIME 2,000 MG in SYRINGE 0 ML IV SCH (17:01)
[2023-05-20] MEDS ORDERED: SODIUM CHLORIDE 0.65% NA SOLN 45 ML (OCEAN) PRN (18:30)
--- NOTE | 2023-05-20 20:47 | Hospitalist Progress Note ---
Date of Service May 20, 2023 Assessment & Plan (1) Acute and chronic respiratory failure with hypoxia: Plan: acute - 2nd to pseudomonas pneumonia extensive w/u including CTA chest x 2, bronchoscopy 05/14/23, numerous labs & cultures, etc have failed to identify another pathogen besides pseudomonas cocci, histo, aspergillus, and PJP testing returned from [facility] lab - all negative AFB culture, fungal culture - remain negative from bronch chronic resp failure - 2nd to COPD, lung ca, etc typically on 3L NC O2 at rest, 6L NC O2 with activity will repeat a 2-step day of discharge home (2) Cavitary lesion of lung: Plan: 6.3cm, LLL s/p bronch by Dr Khan on 05/14/23 brushings/cytologies negative for malignancy Quantiferon gold test negative AFB/fungal cultures from bronch negative only + culture showed pseudomonas see #1 above will need pulmonary follow-up for his extensive pneumonia and complex pulmonary issues (3) Blood in mouth of unknown source: Plan: during his bronchoscopy no source of bleeding was found thus, the blood at time of admission was likely nasopharyngeal or pharyngeal in location no recurrent bleeding since then except minor bleeding from his hard palate ulceration H/H stable repeat CBC am (4) Multifocal pneumonia: Plan: had such during his prior hospitalization in 04/2023 complicated by chemo-induced pancytopenia and septic shock evidence of ongoing b/l pneumonia at time of this admission (despite previous 14-day course of IV cefepime for presumed pseudomonas) was on cefepime; changed to IV zosyn 3 nights ago when he had acute decompensation (possibly due to mucous plugging - repeat imaging negative) ID following; changing back to IV cefepime today plan is to treat for 3-4 weeks in total with last day of therapy on 06/08/23 patient aware he will need IV cefepime at home (5) Acute blood loss anemia: Plan: 2nd to #3 s/p 1 unit PRBCs on hospital day #1 H/H stable since cbc am tomorrow (6) Chronic systolic CHF (congestive heart failure): Plan: echo 04/2023 - EF 45-50% was going to follow with [facility] [place] [facility] clinic after recent hospitalization continues with LE edema despite daily lasix low albumin likely contributing to his edema as well - last albumin level <2.5 recently discovered left leg DVTs probably contributing to LLE edema as well elevate legs consider gentle compression continue low-dose lasix (7) PAF (paroxysmal atrial fibrillation): Plan: diagnosed with such in the ICU during prior hospitalization needed IV amiodarone during that stay with conversion to NSR discharged on Eliquis + amiodarone Eliquis had been on hold due to the bleeding he presented with now on heparin drip for h/o PAF and newly discovered LLE DVT if he remains stable overnight can resume Eliquis tomorrow cont amiodarone to maintain NSR can likely cut back to 200mg daily starting today (8) Abnormal LFTs: Plan: seen during the prior hospitalization lfts have normalized as of a few days ago ok to cont amiodarone, statin, etc (9) Adenocarcinoma of left lung, stage 3: Plan: dx 01/2023 stage 3a s/p radiation along with chemotherapy last chemo - 04/20/23 - carboplatin/paclitaxel follows with Dr [facility] I spoke with Dr Roque today - he has scheduled f/u with her clinic next week at that visit they will discuss timing of repeat/resumption of chemo (10) History of abdominal aortic aneurysm repair: Plan: 2015 (11) Chronic obstructive pulmonary disease: Plan: with resulting chronic hypoxic resp failure on home O2 prior heavy tobacco dependence cont home inhalers (12) Left leg DVT: Plan: as seen on recent doppler cont heparin drip change to Eliquis tomorrow if H/H stable and no nasopharyngeal bleeding simply place on 5mg BID plan lifelong Eliquis (13) Vocal cord nodule: Plan: as seen during bronchoscopy laryngeal candidiasis?? send to ENT post-d/c Plan pt's updated at bedside PT, RONN enriquez appreciated; can return home progressing nicely home next 1-2 days?? Admission and Anticipated Discharge Date Admission Date: May 11, 2023 Subjective tele overnight wnl - NSR patient reports feeling good robust appetite worked with PT today - did well, felt to be candidate for home minimal blood from oral cavity at site of ulceration on hard palate no hemoptysis still with cough but no significant sputum mild MO with walking only Review of Systems Review of Systems: gen - no fevers or chills cv - no chest pain GI - no N/V/diarrhea Physical Exam Physical Exam: gen - NAD, sitting in chair, looks good HENT - hard palate with healing ulceration - no change; MMM; no thrush; hoarse voice resolved neck - no JVD heart - RRR, s1 s2, no murmur lungs - scant rales, no wheeze, airation fair, coughing at times abd - soft NT ND BS+ ext - 1+ pitting edema ankles/feet, pulses 2+ b/l feet psych - a/o x 3 Results & Data Results & Data Vital Signs (Past 12 Hours) Vital Signs Temp Pulse Pulse Resp BP Pulse Ox O2 Del Method 05/20/23 19:00 36.6 C 77 20 116/67 91 Nasal Cannula 05/20/23 16:37 36.7 C 85 18 118/71 90 Nasal Cannula 05/20/23 15:14 92 H 05/20/23 11:07 37.2 C 84 18 109/80 90 Nasal Cannula O2 Flow Rate 05/20/23 19:00 05/20/23 16:37 2 05/20/23 15:14 05/20/23 11:07 2 Laboratory Results Laboratory Results - last 24 hr 05/14/23 05/20/23 09:00 05:33 Heparin Anti-Xa, Unfract 0.65 Sodium 137 Potassium 3.6 Chloride 99 Carbon Dioxide 31 Anion Gap 7 BUN 15 Creatinine 1.30 Est Cr Clr Drug Dosing 45.2 Est GFR ( Amer) 61.4 Est GFR (Non-Af Amer) 53.0 BUN/Creatinine Ratio 11.5 Glucose 92 Calcium 8.9 Coccidioid immitis DNA See Scanned Report Histo/Blasto PCR Result See Scanned Report Pneumocyst jirovecii PCR See Scanned Report Aspergillus Antigen See Scanned Report PG Care Time/CCT Total # of Minutes Spent Total Time Spent with Patient: Total time spent is greater than 50% in coordination of care (as documented) at patient's floor/unit and/or counseling patient: Coding Level of Care Code 03564 SUB INP/OBS CARE 3/50MIN Diagnoses Acute and chronic respiratory failure with hypoxia J96.21 Cavitary lesion of lung J98.4 Blood in mouth of unknown source K13.79 Multifocal pneumonia J18.9 Acute blood loss anemia D62 Chronic systolic CHF (congestive heart failure) I50.22 PAF (paroxysmal atrial fibrillation) I48.0 Abnormal LFTs R79.89 Adenocarcinoma of left lung, stage 3 C34.92 History of abdominal aortic aneurysm repair Z98.890 Centrilobular emphysema J43.2 COPD type: emphysema Emphysema type: centrilobular Left leg DVT I82.402 Vocal cord nodule J38.2 (11) 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
[2023-05-21 06:20] LABS: Hematocrit (blood only) 25.5 % (42.0-52.0); Hemoglobin 8.4 g/dl (14.0-18.0); Mean Corpuscular Hemoglobin 30.4 pg (25.0-34.0); Mean Corpuscular Hgb Conc 32.9 g/dL (32.0-36.0); Mean Corpuscular Volume 92.4 fL (80.0-100.0); Mean Platelet Volume 9.7 fL (9.4-12.4); Platelet Count 243 K/uL (130-400); RDW Coefficient of Variation 15.5 % (11.5-14.5); RDW Standard Deviation 51.1 fL (36.4-46.3); Red Blood Count 2.76 M/uL (4.70-6.10); White Blood Count 12.81 K/ul (4.8-10.8)
[2023-05-21 06:43] LABS: BUN Creatinine Ratio 13.5 (10-20); Calcium 8.7 mg/dl (8.6-10.3); Creatinine Clr Calc Pharmacy 46.6 ml/min; Est GFR (African American) 63.8 ml/min; Potassium 3.8 mmol/L (3.5-5.1)
[2023-05-21 06:48] LABS: ANTI-Xa, UFH(UnfractionatedHep 0.19 IU/ml (0.3-0.7)
[2023-05-21] MEDS: AMIODARONE 200 MG TAB PO SCH (08:44)
[2023-05-21] MEDS: TRIAMCINOLONE ACET 0.1% ORABASE 5 GM TUBE MT SCH (10:45)
[2023-05-21] MEDS: CHLORHEXIDINE GLUCONATE 0.12% 480 ML MT SCH (10:45)
--- NOTE | 2023-05-21 15:36 | Hospitalist Progress Note ---
Date of Service May 21, 2023 Assessment & Plan (1) Blood in mouth of unknown source: Plan: at time of admission he presented with severe bleeding from the mouth it was unclear if the blood was from the nasopharynx, the hard palate ulceration, or the lungs Eliquis was held upon admission due to the above bleeding incident ultimately underwent bronchoscopy -- no source of bleeding was found had bleeding overnight - uncertain if from the nares OR the hard palate ulceration heparin drip now off again I corresponded with Dr Kaushik Whitaker from ENT who will consult and perform laryngoscopy to locate the source appreciate her assistance hold heparin drip until her assessment is complete for the nose I asked him to use saline spray frequently use oxymask in karen of NC to allow nose to heal (2) Acute and chronic respiratory failure with hypoxia: Plan: acute - 2nd to pseudomonas pneumonia extensive w/u including CTA chest x 2, bronchoscopy 05/14/23, numerous labs & cultures, etc have failed to identify another pathogen besides pseudomonas cocci, histo, aspergillus, and PJP testing returned from [facility] lab - all negative AFB culture, fungal culture - remain negative from bronch chronic resp failure - 2nd to COPD, lung ca, etc typically on 3L NC O2 at rest, 6L NC O2 with activity will repeat a 2-step day of discharge home (3) Cavitary lesion of lung: Plan: 6.3cm, LLL s/p bronch by Dr Khan on 05/14/23 brushings/cytologies negative for malignancy Quantiferon gold test negative AFB/fungal cultures from bronch negative only + culture showed pseudomonas see #1 above will need pulmonary follow-up for his extensive pneumonia and complex pulmonary issues (4) Multifocal pneumonia: Plan: had such during his prior hospitalization in 04/2023 complicated by chemo-induced pancytopenia and septic shock evidence of ongoing b/l pneumonia at time of this admission (despite previous 14-day course of IV cefepime for presumed pseudomonas) was on cefepime; changed to IV zosyn 3 nights ago when he had acute decompensation (possibly due to mucous plugging - repeat imaging negative) ID following; changed back to IV cefepime on 05/20/23 plan is to treat for 3-4 weeks in total with last day of therapy on 06/08/23 patient aware he will need IV cefepime at home (5) Acute blood loss anemia: Plan: 2nd to #1 s/p 1 unit PRBCs on hospital day #1 H/H stable since H/H today relatively stable with minimal drop cbc am tomorrow (6) Chronic systolic CHF (congestive heart failure): Plan: echo 04/2023 - EF 45-50% was going to follow with [facility] after recent hospitalization continues with LE edema despite daily lasix low albumin likely contributing to his edema as well - last albumin level <2.5 recently discovered left leg DVTs probably contributing to LLE edema as well elevate legs consider gentle compression continue low-dose lasix (7) PAF (paroxysmal atrial fibrillation): Plan: diagnosed with such in the ICU during prior hospitalization needed IV amiodarone during that stay with conversion to NSR discharged on Eliquis + amiodarone Eliquis had been on hold due to the bleeding he presented with now on heparin drip for h/o PAF and newly discovered LLE DVT if he remains stable overnight can resume Eliquis tomorrow cont amiodarone to maintain NSR - 200mg daily (8) Abnormal LFTs: Plan: seen during the prior hospitalization lfts have normalized as of a few days ago ok to cont amiodarone, statin, etc (9) Adenocarcinoma of left lung, stage 3: Plan: dx 01/2023 stage 3a s/p radiation along with chemotherapy last chemo - 04/20/23 - carboplatin/paclitaxel follows with Dr [facility] I spoke with Dr Roque 05/20/23 - he has scheduled f/u with her clinic next week at that visit they will discuss timing of repeat/resumption of chemo (10) History of abdominal aortic aneurysm repair: Plan: 2015 (11) Chronic obstructive pulmonary disease: Plan: with resulting chronic hypoxic resp failure on home O2 prior heavy tobacco dependence cont home inhalers (12) Left leg DVT: Plan: as seen on recent doppler heparin drip temporarily on hold due to #1 ultimately needs Eliquis resumed which will be lifelong due to concomitant a.fib, lung ca, etc (13) Vocal cord nodule: Plan: as seen during bronchoscopy laryngeal candidiasis?? direct laryngoscopy today saw vocal cord erythema but no nodules (14) Mucositis: Plan: kenalog orabase TID to the ulceration peridex mouthwash BID nystatin swish QID Plan pt's updated at bedside PT, OT evals appreciated; can return home events listed in #1 today will delay his discharge Admission and Anticipated Discharge Date Admission Date: May 11, 2023 Subjective overnight patient was awoken by a large amount of blood in his mouth he was pulling out clots from the oral cavity he did not have nose bleeding from the anterior nares of the nose he could not tell if the blood was dripping from the back of his throat or if it was coming from the roof of his mouth took 1-2 hours to stop? heparin drip stopped when the night resident was contacted since the bleeding stopped he has had no further bleeding incidents not coughing up blood cough is stable no other new issues tele - NSR overnight Review of Systems Review of Systems: gen - no fevers or chills cv - no cp pulm - no dyspnea GI - no abd pain Physical Exam Physical Exam: gen - NAD, sitting in chair, looks similar to yesterday HENT - hard palate with large ulceration - no change from yesterday's exam; no active bleeding from any location in the oral cavity;MMM; no thrush; hoarse voice resolved nose - dried blood b/l ant nares with large plug of mucous/?old blood on left neck - no JVD heart - RRR, s1 s2, no murmur lungs - scant rales bases, no wheeze, airation fair-good abd - soft NT ND BS+ ext - <1+ pitting edema ankles/feet, pulses 2+ b/l feet psych - a/o x 3 Results & Data Results & Data Vital Signs (Past 12 Hours) Vital Signs Temp Pulse Pulse Resp BP Pulse Ox O2 Del Method 05/21/23 12:05 36.8 C 91 H 18 101/74 92 Nasal Cannula 05/21/23 08:49 Nasal Cannula 05/21/23 08:00 71 05/21/23 07:46 37.1 C 88 17 116/71 91 Nasal Cannula O2 Flow Rate 05/21/23 12:05 4 05/21/23 08:49 3 05/21/23 08:00 05/21/23 07:46 2.0 Laboratory Results Laboratory Results - last 24 hr 05/21/23 05:40 WBC 12.81 H RBC 2.76 L Hgb 8.4 L Hct 25.5 L MCV 92.4 MCH 30.4 MCHC 32.9 RDW Std Deviation 51.1 H RDW Coeff of Fany 15.5 H Plt Count 243 MPV 9.7 Heparin Anti-Xa, Unfract 0.19 L Sodium 137 Potassium 3.8 Chloride 100 Carbon Dioxide 31 Anion Gap 6 BUN 17 Creatinine 1.26 Est Cr Clr Drug Dosing 46.6 Est GFR ( Amer) 63.8 Est GFR (Non-Af Amer) 55.0 BUN/Creatinine Ratio 13.5 Glucose 102 H Calcium 8.7 PG Care Time/CCT Total # of Minutes Spent Total Time Spent with Patient: Total time spent is greater than 50% in coordination of care (as documented) at patient's floor/unit and/or counseling patient: Coding Level of Care Code 12488 SUB INP/OBS CARE 3/50MIN Diagnoses Blood in mouth of unknown source K13.79 Acute and chronic respiratory failure with hypoxia J96.21 Cavitary lesion of lung J98.4 Multifocal pneumonia J18.9 Acute blood loss anemia D62 Chronic systolic CHF (congestive heart failure) I50.22 PAF (paroxysmal atrial fibrillation) I48.0 Abnormal LFTs R79.89 Adenocarcinoma of left lung, stage 3 C34.92 History of abdominal aortic aneurysm repair Z98.890 Centrilobular emphysema J43.2 COPD type: emphysema Emphysema type: centrilobular Left leg DVT I82.402 Vocal cord nodule J38.2 Mucositis K12.30 (11) 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
--- NOTE | 2023-05-21 18:56 | ENT Consultation ---
Date of Consultation May 21, 2023 Assessment & Plan (1) Chronic anticoagulation: (2) Blood in mouth of unknown source: Plan 78yM h/o adenocacrinoma of lung, pAF on eliquis, CHF admitted with acute on chronic respiratory failure and PNA now with multiple episodes of spitting up blood. Exam shows shallow hard and soft palate ulceration consistent with mucositis as well as shallow ulceration of the bilateral anterior septum, worse on the left. Flexible laryngoscopy shows no obvious additional source of bleeding. Bleeding may be related to intermittent epistaxis from the nasal erosions, GI source is less likely but has not been ruled out. -Mupirocin ointment to bilateral nares twice daily for 2 weeks -Nasal saline spray 4 times daily -Afrin 3 times daily for 3 days and then as needed for epistaxis -Humidified oxygen via face tent or mask rather than nasal cannula -Oral care per Dr. Rae -Follow-up in 2 to 3 weeks as an outpatient - [phone] - or contact ENT on- call for any further bleeding History of Present Illness Attending Physician: Jarod Glynn MD History of Present Illness 78yM h/o adenocacrinoma of lung, pAF on eliquis, CHF admitted with acute on chronic respiratory failure and PNA now with multiple episodes of spitting up blood. Began 1.5 weeks ago, had a drop in hemoglobin requiring transfusion. Eliquis was held at that point. It did not recur until he was noted to have a lower extremity DVT and started on a heparin drip yesterday. Had another episode which awakened him from sleep last night. Bronchoscopy was unrevealing of a source. He does have a known hard palate ulceration which has been managed topical by Dr. Rae. He has been on O2 via nasal cannula during this admission. No current nasal regimen or prior nasal surgery or trauma. No history of epistaxis. Notes dried blood in bilateral nares. No sore throat, dysphagia, odynophagia. +dysphonia over the past week, currently being treated for thrush. Former smoker, quit in January. Allergies Allergy/AdvReac Type Severity Reaction Status Date / Time JUAN R Inhibitors AdvReac Intermediate hyperkalemi Verified 05/11/23 09:37 a Home Medications Medication Instructions Recorded Confirmed Type ascorbate calcium (vitamin C) 500 500 mg PO QAM 09/23/18 05/11/23 History mg tablet aspirin 81 mg tablet,delayed 81 mg PO QAM 09/23/18 05/11/23 History release (Adult Aspirin Regimen) vitamin E succinate 268 mg (400 400 units PO QAM 11/30/18 05/11/23 History unit) tablet albuterol sulfate 90 mcg/actuation 2 inh inhalation QID PRN shortness 12/19/20 05/11/23 Rx aerosol inhaler of breath or wheezing #8.5 grams atorvastatin 20 mg tablet (Lipitor) 20 mg PO PM 90 days #90 tabs 06/24/22 05/11/23 Rx cholecalciferol (vitamin D3) 50 50 mcg PO QPM 01/20/23 05/11/23 History mcg (2,000 unit) capsule (Vitamin D3) prochlorperazine maleate 10 mg 10 mg PO Q8H PRN Nausea 03/18/23 05/11/23 History tablet (Compazine) fluticasone fur. 100 mcg-umeclid 1 inh inhalation DAILY #60 ea 03/31/23 05/11/23 Rx 62.5 mcg-vilant 25 mcg inhalat.powder (Trelegy Ellipta) dexamethasone 4 mg tablet 4 mg PO UD 04/21/23 05/11/23 History ondansetron 8 mg disintegrating 8 mg PO Q8 PRN Nausea And Vomiting 04/21/23 05/11/23 History tablet amiodarone 200 mg tablet 200 mg PO BIDM #60 tabs 05/01/23 05/11/23 Rx apixaban 5 mg tablet (Eliquis) 5 mg PO BID #60 tabs 05/01/23 05/11/23 Rx Oxygen Home [id number] #1 L 05/05/23 05/07/23 Rx furosemide 20 mg tablet (Lasix) 20 mg PO QAM #30 tabs 05/05/23 05/11/23 Rx magnesium oxide 400 mg (241.3 mg 400 mg PO QAM #30 tabs 05/05/23 05/11/23 Rx magnesium) tablet potassium chloride 10 mEq 10 meq PO DAILY #30 tabs 05/05/23 05/11/23 Rx tablet,extended release nystatin 100,000 unit/mL oral 5 ml PO QID 7 days #140 mL 05/07/23 05/11/23 Rx suspension Patient History Medical History Weakness of voice Diarrhea Multifocal pneumonia Chronic diastolic heart failure Chronic obstructive pulmonary disease Lower extremity edema BPH (benign prostatic hyperplasia) Hyperlipidemia Lung cancer Abdominal aortic aneurysm s/p repair 2015 Multiple pulmonary nodules determined by computed tomography of lung BPH (benign prostatic hyperplasia) Kidney stones hx PVC (premature ventricular contraction) on occasion Hypertension Diverticulosis Hyperlipemia COPD (chronic obstructive pulmonary disease) well controlled per pt > no res inh use Surgical History History of aortic aneurysm repair endovascular > [facility] [place] > 2016 > follows with [facility] cardiology. Has to go for scan on 02/06/23 to check for "leak around the stent" as evidence of size increase per recent ultrasound [facility]. History of cataract surgery bilat History of tooth extraction dental implants History of lithotripsy History of inguinal hernia repair left x 1, right x 2. H/O colonoscopy 07/2020 repeat 5 years Family History Father Colon cancer Colorectal cancer Family/Other Heart disease Hypertension Mother Stroke Denies family history of Ovarian cancer Prostate cancer Myocardial infarction Breast cancer Social History Smoking Status: Former smoker Tobacco Type: Cigarettes Age Started Using Tobacco: 32; packs per day: 0.5; Cigarettes Per Day: 10 cigs per day; Second Hand Exposure: No; Do You Dip or Chew Tobacco: No; Hx Alcohol Use: No Hx Substance Use: No Preferred Language: Czech Communication Ability: Effective Visual Impairment: Limited Hearing Ability: Normal Package Worker Required: No Beliefs That Will Affect Care: None marital status: Current Living Situation: Spouse Current Living Situation Comment: lives with current 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 Normal sclera and conjunctiva Ears: External ears normal Nose: no external deformity, nares patent. No rhinorrhea or epistaxis. Crusting of the left greater than right anterior septum, removed using alligator forceps. Mild erosion of bilateral anterior septum without active epistaxis or prominent vessels. Septum midline. No significant mucosal edema or inflammation. Oral cavity: Normal examination of the lips, gingiva, GBS, oral tongue, floor of mouth, RMT. Diffuse shallow ulceration of the hard palate extending to soft palate in the midline without prominent vessels or active bleeding. No exophytic mass Oropharynx: clear Neck: soft, no masses or lymphadenopathy Procedure: Diagnostic nasal endoscopy Indication: bleeding Details: Following the application of topical lidocaine and afrin, the bilateral nasal cavities were examined with a flexible endoscope. The septum was in the midline position and as desribed above. Examination of the left side revealed a clear middle meatus and sphenoethmoid recess. There was no mucopurulence or polyposis. Examination of the right side revealed a clear middle meatus and sphenoethmoid recess. There was no mucopurulence or polyposis. The nasopharynx was clear. The turbinates were normal in size and responded to topical deconges tant spray. The patient tolerated the procedure well. Procedure: Flexible fiberoptic laryngoscopy Indication: bleeding Details: Following the topical application of afrin and lidocaine, the flexible laryngoscope was inserted into the nasal cavity. The septum, turbinates, and nasal mucosa were as described above.. The nasopharynx was normal. The palatine tonsils were normal bilaterally. The base of tongue and vallecula were normal. The epiglottis, bilateral arytenoids, and bilateral aryepiglottic folds, and bilateral false vocal folds were normal. The true vocal folds were erythematous and mildly edematous without masses or lesions. There was normal mobility of the true vocal folds bilaterally. The bilateral pyriform sinuses and postcricoid space was normal. There was no pooling of secretions. No aspiration or penetration was visualized. The patient tolerated the procedure well. Results & Data Vital Signs (Past 12 Hours) Vital Signs Temp Pulse Pulse Resp BP Pulse Ox O2 Del Method 05/21/23 16:56 37.0 C 93 H 19 113/67 92 Nasal Cannula 05/21/23 16:00 83 05/21/23 12:05 36.8 C 91 H 18 101/74 92 Nasal Cannula 05/21/23 08:49 Nasal Cannula 05/21/23 08:00 71 05/21/23 07:46 37.1 C 88 17 116/71 91 Nasal Cannula O2 Flow Rate 05/21/23 16:56 4 05/21/23 16:00 05/21/23 12:05 4 05/21/23 08:49 3 05/21/23 08:00 05/21/23 07:46 2.0 PG Care Time/CCT Total # of Minutes Spent Total Time Spent with Patient: Total time spent is greater than 50% in coordination of care (as documented) at patient's floor/unit and/or counseling patient: Coding Level of Care Code 22375 IN/OBS CONSULT LVL 4,60M (25 - SIGNIFICANT, SEPARATELY IDENTIFIABLE ) Diagnoses Chronic anticoagulation Z79.01 Blood in mouth of unknown source K13.79 CPT Codes Nasal Endoscopy, Dx - 22044 ([id number])
[2023-05-21] MEDS: OXYMETAZOLINE 0.05% 30 ML BTL SCH (21:02)
[2023-05-21] MEDS: MUPIROCIN 2% OINT 22 GM TUBE EXT SCH (21:04)
[2023-05-22 06:28] LABS: Hematocrit (blood only) 23.7 % (42.0-52.0); Hemoglobin 7.9 g/dl (14.0-18.0); Mean Corpuscular Hemoglobin 30.7 pg (25.0-34.0); Mean Corpuscular Hgb Conc 33.3 g/dL (32.0-36.0); Mean Corpuscular Volume 92.2 fL (80.0-100.0); Nucleated RBC # (auto) 0.02 K/uL (0.00-0.12); Nucleated RBC % (auto) 0.1 %; Platelet Count 212 K/uL (130-400); RDW Coefficient of Variation 15.4 % (11.5-14.5); RDW Standard Deviation 50.7 fL (36.4-46.3); Red Blood Count 2.57 M/uL (4.70-6.10); White Blood Count 13.34 K/ul (4.8-10.8)
[2023-05-22 06:46] LABS: BUN Creatinine Ratio 20.2 (10-20); Calcium 9.1 mg/dl (8.6-10.3); Creatinine Clr Calc Pharmacy 49.4 ml/min; Est GFR (African American) 68.4 ml/min
[2023-05-22 06:55] LABS: ANTI-Xa, UFH(UnfractionatedHep < 0.10 IU/ml (0.3-0.7)
[2023-05-22] MEDS ORDERED: Heparin IV Adult Wt-Based Low-Dose *NO* INITIAL Bolus Protocol IV SCH (09:45)
[2023-05-22] MEDS: HEPARIN SODIUM/DEXTROSE 25,000 UNITS/500 ML BAG IV SCH (10:08)
[2023-05-22 17:42] LABS: ANTI-Xa, UFH(UnfractionatedHep < 0.10 IU/ml (0.3-0.7)
--- NOTE | 2023-05-22 19:01 | Hospitalist Progress Note ---
Date of Service May 22, 2023 Assessment & Plan (1) Blood in mouth of unknown source: Plan: at time of admission he presented with severe bleeding from the mouth it was unclear if the blood was from the nasopharynx, the hard palate ulceration, or the lungs Eliquis was held upon admission due to the above bleeding incident ultimately underwent bronchoscopy -- no source of bleeding was found had bleeding 2 nights ago - uncertain if from the nares OR the hard palate ulceration heparin drip was stopped Dr Kaushik Whitaker from ENT performed laryngoscopy mild blood in both nares near the anterior nasal septum appreciate her assistance using bactroban BID to both nares along with saline spray treating mucositis - see below since stopping the heparin drip yesterday he has had no further bleeding will attempt to resume heparin LOW DOSE protocol and watch his closely use oxymask in karen of [place] to allow nose to heal (2) Acute and chronic respiratory failure with hypoxia: Plan: acute - 2nd to pseudomonas pneumonia extensive w/u including CTA chest x 2, bronchoscopy 05/14/23, numerous labs & cultures, etc have failed to identify another pathogen besides pseudomonas cocci, histo, aspergillus, and PJP testing returned from [facility] lab - all negative AFB culture, fungal culture - remain negative from bronch chronic resp failure - 2nd to COPD, lung ca, etc typically on 3L NC O2 at rest, 6L NC O2 with activity will repeat a 2-step day of discharge home patient feels worse today - will repeat cxr - 2view patient also reporting cough with drinking fluids - will ask speech therapy to see to exclude aspiration (3) Cavitary lesion of lung: Plan: 6.3cm, LLL s/p bronch by Dr Khan on 05/14/23 brushings/cytologies negative for malignancy Quantiferon gold test negative AFB/fungal cultures from bronch negative only + culture showed pseudomonas see #1 above will need pulmonary follow-up for his extensive pneumonia and complex pulmonary issues (4) Multifocal pneumonia: Plan: had such during his prior hospitalization in 04/2023 complicated by chemo-induced pancytopenia and septic shock evidence of ongoing b/l pneumonia at time of this admission (despite previous 14-day course of IV cefepime for presumed pseudomonas) was on cefepime; changed to IV zosyn 4 nights ago when he had acute decompensation (possibly due to mucous plugging - repeat imaging negative) ID following; changed back to IV cefepime on 05/20/23 plan is to treat for 3-4 weeks in total with last day of therapy on 06/08/23 patient aware he will need IV cefepime at home (5) Acute blood loss anemia: Plan: 2nd to #1 s/p 1 unit PRBCs on hospital day #1 H/H with mild drop overnight due to #1 will follow carefully cbc am tomorrow (6) Chronic systolic CHF (congestive heart failure): Plan: echo 04/2023 - EF 45-50% was going to follow with [facility] after recent hospitalization continues with LE edema despite daily lasix low albumin likely contributing to his edema as well - last albumin level <2.5 recently discovered left leg DVTs probably contributing to LLE edema as well elevate legs consider gentle compression continue lasix (7) PAF (paroxysmal atrial fibrillation): Plan: diagnosed with such in the ICU during prior hospitalization needed IV amiodarone during that stay with conversion to NSR discharged on Eliquis + amiodarone Eliquis had been on hold due to the bleeding he presented with attempting to resume heparin but do so with LOW DOSE protocol cont amiodarone to maintain NSR - 200mg daily (8) Abnormal LFTs: Plan: seen during the prior hospitalization lfts have normalized as of a few days ago ok to cont amiodarone, statin, etc (9) Adenocarcinoma of left lung, stage 3: Plan: dx 01/2023 stage 3a s/p radiation along with chemotherapy last chemo - 04/20/23 - carboplatin/paclitaxel follows with Dr [facility] I spoke with Dr Roque 05/20/23 - he has scheduled f/u with her clinic next week at that visit they will discuss timing of repeat/resumption of chemo (10) History of abdominal aortic aneurysm repair: Plan: 2016 (11) Chronic obstructive pulmonary disease: Plan: with resulting chronic hypoxic resp failure on home O2 prior heavy tobacco dependence cont home inhalers (12) Left leg DVT: Plan: as seen on recent doppler heparin drip to be resumed today cautiously using LOW DOSE protocol if he does not tolerate the heparin - ie repeat bleeding - IVC Filter?? (13) Vocal cord nodule: Plan: as seen during bronchoscopy laryngeal candidiasis?? direct laryngoscopy by Dr Whitaker saw vocal cord erythema but no nodules (14) Mucositis: Plan: kenalog orabase TID to the ulceration peridex mouthwash BID nystatin swish QID Plan pt's updated at bedside extensively PT, OT zoe appreciated; can return home Admission and Anticipated Discharge Date Admission Date: May 11, 2023 Subjective patient had no bleeding from the nose or oral cavity overnight low-dose heparin drip started this am throughout the day had no issues with such doesn't feel as good today as yesterday appetite not as good had an episode of feeling dyspneic this am cough about the same no nasal bleeding feels a "little down" at bedside tele - NSR Review of Systems Review of Systems: gen - no fevers cv - no chest pain pulm - no dyspnea at rest (it was with exertion) GI - no abd pain/nausea/emesis Physical Exam Physical Exam: gen - NAD, sitting in chair, no respiratory distress HENT - hard palate with large ulceration - slightly improved from yesterday; healing tissue right side of the ulceration; no active bleeding from any location in the oral cavity; MMM; no thrush nose - no epistaxis neck - no JVD heart - RRR, s1 s2, no murmur lungs - b/l rales bases - modestly worse today; no wheeze, airation fair-good abd - soft NT ND BS+ ext - 1+ pitting edema ankles/feet, pulses 2+ b/l feet psych - a/o x 3 Results & Data Results & Data Vital Signs (Past 12 Hours) Vital Signs Temp Pulse Pulse Resp BP Pulse Ox O2 Del Method 05/22/23 16:00 77 05/22/23 15:33 36.9 C 78 20 112/71 91 Oxymask 05/22/23 10:47 36.7 C 83 20 87/61 L 95 Oxymask 05/22/23 08:00 Nasal Cannula, Oxymask 05/22/23 07:40 36.9 C 80 19 116/69 92 Oxymask O2 Flow Rate 05/22/23 16:00 05/22/23 15:33 05/22/23 10:47 05/22/23 08:00 3 05/22/23 07:40 2 Laboratory Results Laboratory Results - last 24 hr 05/22/23 05/22/23 05:40 16:48 WBC 13.34 H RBC 2.57 L Hgb 7.9 L Hct 23.7 L MCV 92.2 MCH 30.7 MCHC 33.3 RDW Std Deviation 50.7 H RDW Coeff of Fany 15.4 H Plt Count 212 MPV 10.0 Absolute Nucleated RBC 0.02 Nucleated RBC % (auto) 0.1 Heparin Anti-Xa, Unfract < 0.10 L < 0.10 L Sodium 137 Potassium 4.0 Chloride 102 Carbon Dioxide 29 Anion Gap 6 BUN 24 H Creatinine 1.19 Est Cr Clr Drug Dosing 49.4 Est GFR ( Amer) 68.4 Est GFR (Non-Af Amer) 59.0 BUN/Creatinine Ratio 20.2 H Glucose 95 Calcium 9.1 PG Care Time/CCT Total # of Minutes Spent Total Time Spent with Patient: Total time spent is greater than 50% in coordination of care (as documented) at patient's floor/unit and/or counseling patient: Coding Level of Care Code 35813 SUB INP/OBS CARE 3/50MIN Diagnoses Blood in mouth of unknown source K13.79 Acute and chronic respiratory failure with hypoxia J96.21 Cavitary lesion of lung J98.4 Multifocal pneumonia J18.9 Acute blood loss anemia D62 Chronic systolic CHF (congestive heart failure) I50.22 PAF (paroxysmal atrial fibrillation) I48.0 Abnormal LFTs R79.89 Adenocarcinoma of left lung, stage 3 C34.92 History of abdominal aortic aneurysm repair Z98.890 Centrilobular emphysema J43.2 COPD type: emphysema Emphysema type: centrilobular Left leg DVT I82.402 Vocal cord nodule J38.2 Mucositis K12.30 (11) 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
--- NOTE | 2023-05-22 19:24 | XRay Report ---
XR chest 2V PA/lateral CLINICAL HISTORY: pseudomonas pneumonia, worsening dyspnea TECHNIQUE: 2 views of the chest were obtained. Comparison: Comparison is made to chest radiograph 05/17/2023 FINDINGS: No lines and tubes are seen. The cardiomediastinal silhouette is normal. Bilateral lower lung airspac e opacities are slightly more prominent than in the prior exam. No evidence of pleural effusion or pn eumothorax. IMPRESSION: Stable to slightly increased prominence of the bilateral airspace opacities concerning for pneumonia. ACT 112: Negative or not required by law. Electronically signed by: Reese Garrison M.D. 05/22/2023 7:22 PM
[2023-05-22] MEDS: MELATONIN 3 MG TAB PO SCH (21:06)
[2023-05-23 01:10] LABS: ANTI-Xa, UFH(UnfractionatedHep 0.18 IU/ml (0.3-0.7)
[2023-05-23] MEDS: HEPARIN SOD (PORCINE) 1000 UNIT/ML IV ONE (02:03)
[2023-05-23 05:46] LABS: Hematocrit (blood only) 24.5 % (42.0-52.0); Hemoglobin 7.8 g/dl (14.0-18.0); Mean Corpuscular Hemoglobin 30.2 pg (25.0-34.0); Mean Corpuscular Hgb Conc 31.8 g/dL (32.0-36.0); Platelet Count 205 K/uL (130-400); RDW Coefficient of Variation 16.1 % (11.5-14.5); RDW Standard Deviation 54.1 fL (36.4-46.3); Red Blood Count 2.58 M/uL (4.70-6.10); White Blood Count 12.82 K/ul (4.8-10.8)
[2023-05-23 06:07] LABS: ANTI-Xa, UFH(UnfractionatedHep 0.52 IU/ml (0.3-0.7)
[2023-05-23 08:53] LABS: ANTI-Xa, UFH(UnfractionatedHep < 0.10 IU/ml (0.3-0.7)
[2023-05-23 16:57] LABS: Hematocrit (blood only) 26.9 % (42.0-52.0); Hemoglobin 8.3 g/dl (14.0-18.0); Mean Corpuscular Hemoglobin 29.6 pg (25.0-34.0); Mean Corpuscular Hgb Conc 30.9 g/dL (32.0-36.0); Mean Corpuscular Volume 96.1 fL (80.0-100.0); Platelet Count 243 K/uL (130-400); RDW Coefficient of Variation 16.1 % (11.5-14.5); RDW Standard Deviation 54.9 fL (36.4-46.3); White Blood Count 14.53 K/ul (4.8-10.8)
[2023-05-23 17:17] LABS: BUN Creatinine Ratio 26.5 (10-20); Calcium 9.3 mg/dl (8.6-10.3); Creatinine Clr Calc Pharmacy 43.2 ml/min; Est GFR (African American) 58.2 ml/min; Est GFR (Non-African American) 50.2 ml/min; Magnesium 1.7 mg/dl (1.7-2.4); Potassium 4.7 mmol/L (3.5-5.1)
--- NOTE | 2023-05-23 18:30 | Hospitalist Progress Note ---
Date of Service May 23, 2023 Assessment & Plan (1) Blood in mouth of unknown source: Plan: at time of admission he presented with severe bleeding from the mouth it was unclear if the blood was from the nasopharynx, the hard palate ulceration, or the lungs Eliquis was held upon admission due to the above bleeding incident ultimately underwent bronchoscopy -- no source of bleeding was found had bleeding episode earlier this week; uncertain if from the nares OR the hard palate ulceration heparin drip was stopped Dr Kaushik Whitaker from ENT performed laryngoscopy 05/21/23 mild blood in both nares near the anterior nasal septum only; no large area of bleeding found; larynx showed mildly irritated vocal cords but no lesions or areas of blood in the glottis appreciate her assistance using bactroban BID to both nares along with saline spray treating mucositis - see below 05/21 - attempted LOW DOSE protocol for DVT Rx and anticoagulation for a.fib unfortunately had minor bleeding episode early this am as noted in the HPI heparin drip now on hold re-eval tomorrow follow CBCs use oxymask in [place] of [place] to allow nose to heal check INR and PTT to ensure no coagulopathy consider adding vitamin C in the rare chance he is vitamin C deficient (2) Acute and chronic respiratory failure with hypoxia: Plan: acute - 2nd to pseudomonas pneumonia extensive w/u including CTA chest x 2, bronchoscopy 05/14/23, numerous labs & cultures, etc have failed to identify another pathogen besides pseudomonas cocci, histo, aspergillus, and PJP testing returned from [facility] lab - all negative AFB culture, fungal culture - remain negative from bronch chronic resp failure - 2nd to COPD, lung ca, etc typically on 3L NC O2 at rest, 6L NC O2 with activity will repeat a 2-step day of discharge home patient has not felt well yesterday and today with worsening appetite pulmonary symptoms, however, are about the same as earlier in the week cxr 05/21 - slight worsening of infiltrates; this bears close watching procal today wnl does have leukocytosis - significance uncertain - trend patient also reporting cough with drinking fluids - appreciate speech therapy consult - no change in diet at this time advised with modestly worsening infiltrates could he be having pneumonitis from amiodarone?? consider d/w pulmonary (3) Cavitary lesion of lung: Plan: 6.3cm, LLL s/p bronch by Dr Khan on 05/14/23 brushings/cytologies negative for malignancy Quantiferon gold test negative AFB/fungal cultures from bronch negative only + culture showed pseudomonas see above will need pulmonary follow-up for his extensive pneumonia and complex pulmonary issues (4) Multifocal pneumonia: Plan: had such during his prior hospitalization in 04/2023 complicated by chemo-induced pancytopenia and septic shock evidence of ongoing b/l pneumonia at time of this admission (despite previous 14-day course of IV cefepime for presumed pseudomonas) was on cefepime; changed to IV zosyn for 2+ days after suffering acute respiratory decompensation (possibly due to mucous plugging as CTA chest was largely unchanged from prior CT) ID following; changed back to IV cefepime on 05/20/23 plan is to treat for 3-4 weeks in total with last day of therapy on 06/08/23 patient aware he will need IV cefepime at home see #2 above (5) Acute blood loss anemia: Plan: 2nd to #1 s/p 1 unit PRBCs on hospital day #1 bleeding again early this am cbc checked 2x today - H/H relatively stable repeat CBC am (6) Chronic systolic CHF (congestive heart failure): Plan: echo 04/2023 - EF 45-50% was going to follow with [facility] after recent hospitalization continues with minor LE edema in his feet/ankles only - probably more so due to low albumin as recent level was <2.5 Cr trending up, Na trending down - place lasix on hold for now recently discovered left leg DVTs probably contributing to LLE edema as well elevate legs as much as possible (7) PAF (paroxysmal atrial fibrillation): Plan: diagnosed with such in the ICU during prior hospitalization needed IV amiodarone during that stay with conversion to NSR placed on PO Eliquis + amiodarone Eliquis has been on hold since beginning of this admission due to the oral bleeding he presented with attempts at resuming heparin have led to additional oral cavity bleeding 2x this week heparin drip now on hold again cont amiodarone to maintain NSR - 200mg daily (8) Abnormal LFTs: Plan: seen during the prior hospitalization lfts have normalized as of a few days ago ok to cont amiodarone, statin, etc (9) Adenocarcinoma of left lung, stage 3: Plan: dx 01/2023 stage 3a s/p radiation along with chemotherapy last chemo - 04/20/23 - carboplatin/paclitaxel follows with Dr [facility] I spoke with Dr Roque 05/20/23 - he has scheduled f/u with her clinic next week at that visit they will discuss timing of repeat/resumption of chemo (10) History of abdominal aortic aneurysm repair: Plan: 2015 (11) Chronic obstructive pulmonary disease: Plan: with resulting chronic hypoxic resp failure on home O2 prior heavy tobacco dependence cont home inhalers (12) Left leg DVT: Plan: as seen on recent doppler attempts at resuming anticoagulation in the form of heparin drip - even with low-dose protocol - have been met 2x with additional oral cavity bleeding from the mucosal ulcer in mouth and/or the nose if he continues to not tolerate the heparin - IVC Filter by vascular surgery?? (13) Vocal cord nodule: Plan: seen during bronchoscopy earlier in the hospitalization -- laryngeal candidiasis?? direct laryngoscopy by Dr Whitaker on 05/20, however, saw vocal cord erythema but no nodules (14) Mucositis: Plan: severe ongoing present since April unusual in that it is taking so long to heal patient has h/o HSV fever lip blisters took HSV culture from the ulcer base today cont: kenalog orabase TID to the ulceration peridex mouthwash BID nystatin swish QID salt water swishes QID if refractory then formal consult with Dr Raffaele Rae, oral surgery has had bleeding from this severe ulcer multiple times as noted above (15) Leukocytosis: Plan: WBC count had normalized, now trending up again procal negative today no fevers uncertain of significance of the wbc count being mildly high bears close watching check a ua to ensure no UTI causing the wbc count elevation low threshold for ID consultation again low threshold for repeat CT of lungs Plan pt's and daughter updated at bedside extensively today PT, OT zoe appreciated during the pt's visit today his had a syncopal episode she regained consciousness within 20 seconds stable vitals and blood sugar pt's escorted to the [facility] ER for evaluation Admission and Anticipated Discharge Date Admission Date: May 11, 2023 Subjective patient had another episode overnight of bleeding from the oral cavity awoke in his sleep with blood in the mouth no epistaxis the amount of blood was considerably less than his prior episodes the bleeding was self-limited night resident physician notified; heparin placed on hold no bleeding episodes since during the visit he was sitting in the chair reports mild cough with no significant sputum mild MO only; no dyspnea at rest appetite is not good again today no fevers or chills Review of Systems Review of Systems: cv - no chest pain; mild edema feet only pulm - no hemoptysis GI - no overt GI bleeding or abdominal pain Physical Exam Physical Exam: gen - NAD, sitting in chair, no respiratory distress; looks tired HENT - hard palate with large ulceration - slightly improved from yesterday; the open ulcer area is smaller each day; healing tissue at periphery of ulcer; 2-3 small areas, a few millimeters each, of scab; no active bleeding from any location in the oral cavity; MMM; no thrush nose - no epistaxis neck - no JVD heart - RRR, s1 s2, no murmur lungs - b/l rales bases; no wheeze, airation fair-good abd - soft NT ND BS+ ext - 1+ pitting edema ankles/feet only, pulses 2+ b/l feet psych - a/o x 3 Results & Data Results & Data Vital Signs (Past 12 Hours) Vital Signs Temp Pulse Pulse Resp BP Pulse Ox O2 Del Method 05/23/23 16:36 36.6 C 68 19 100/67 97 Nasal Cannula 05/23/23 14:45 76 05/23/23 12:00 36.4 C L 90 19 92/60 L 92 Nasal Cannula 05/23/23 07:51 Nasal Cannula 05/23/23 07:40 36.5 C 93 H 18 100/59 L 92 Nasal Cannula 05/23/23 07:15 94 H O2 Flow Rate 05/23/23 16:36 05/23/23 14:45 05/23/23 12:00 05/23/23 07:51 2 05/23/23 07:40 3 05/23/23 07:15 Laboratory Results Laboratory Results - last 24 hr 05/23/23 05/23/23 05/23/23 05:12 08:13 15:30 WBC 12.82 H RBC 2.58 L Hgb 7.8 L Hct 24.5 L MCV 95.0 MCH 30.2 MCHC 31.8 L RDW Std Deviation 54.1 H RDW Coeff of Fany 16.1 H Plt Count 205 MPV 10.0 Heparin Anti-Xa, Unfract 0.52 < 0.10 L Sodium Potassium Chloride Carbon Dioxide Anion Gap BUN Creatinine Est Cr Clr Drug Dosing Est GFR ( Amer) Est GFR (Non-Af Amer) BUN/Creatinine Ratio Glucose Calcium Magnesium Procalcitonin Urine Color Urine Appearance Urine pH Ur Specific [place] Urine Protein Urine Glucose (UA) Urine Ketones Urine Blood Urine Nitrite Urine Bilirubin Urine Urobilinogen Ur Leukocyte Esterase Urine WBC (Auto) Urine RBC (Auto) U Hyaline Cast (Auto) U Epithel Cells (Auto) Urine Bacteria (Auto) Urine Mucus Herpes Virus Source Pending HSV I DNA PCR Pending HSV II DNA PCR Pending 05/23/23 05/23/23 16:27 Unknown WBC 14.53 H RBC 2.80 L Hgb 8.3 L Hct 26.9 L MCV 96.1 MCH 29.6 MCHC 30.9 L RDW Std Deviation 54.9 H RDW Coeff of Fany 16.1 H Plt Count 243 MPV 10.0 Heparin Anti-Xa, Unfract Sodium 134 L Potassium 4.7 Chloride 102 Carbon Dioxide 28 Anion Gap 4 BUN 36 H Creatinine 1.36 Est Cr Clr Drug Dosing 43.2 Est GFR ( Amer) 58.2 Est GFR (Non-Af Amer) 50.2 BUN/Creatinine Ratio 26.5 H Glucose 106 H Calcium 9.3 Magnesium 1.7 Procalcitonin 0.38 Urine Color Yellow Urine Appearance Clear Urine pH 6.0 Ur Specific [place] 1.020 Urine Protein 2+ H Urine Glucose (UA) Negative Urine Ketones Trace H Urine Blood Trace H Urine Nitrite Negative Urine Bilirubin Negative Urine Urobilinogen Negative Ur Leukocyte Esterase Negative Urine WBC (Auto) 0-5 Urine RBC (Auto) 0-2 U Hyaline Cast (Auto) 3-5 H U Epithel Cells (Auto) 0-2 Urine Bacteria (Auto) None Seen Urine Mucus Present A Herpes Virus Source HSV I DNA PCR HSV II DNA PCR PG Care Time/CCT Total # of Minutes Spent Total Time Spent with Patient: Total time spent is greater than 50% in coordination of care (as documented) at patient's floor/unit and/or counseling patient: Coding Level of Care Code 14543 SUB INP/OBS CARE 3/50MIN Diagnoses Blood in mouth of unknown source K13.79 Acute and chronic respiratory failure with hypoxia J96.21 Cavitary lesion of lung J98.4 Multifocal pneumonia J18.9 Acute blood loss anemia D62 Chronic systolic CHF (congestive heart failure) I50.22 PAF (paroxysmal atrial fibrillation) I48.0 Abnormal LFTs R79.89 Adenocarcinoma of left lung, stage 3 C34.92 History of abdominal aortic aneurysm repair Z98.890 Centrilobular emphysema J43.2 COPD type: emphysema Emphysema type: centrilobular Left leg DVT I82.402 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 (11) 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
[2023-05-23 20:23] LABS: Appearance Urine Clear (Clear); Bacteria Urine Automated None Seen (None Seen); Bilirubin Urine Negative (Negative); Blood Urine Trace (Negative); Color Urine Yellow; Epithelial Cell Urine Auto 0-2 /hpf (0-2); Glucose Urine UA Negative (Negative); Ketones Urine Trace (Negative); Leukocyte Esterase Urine Negative (Negative); Mucus Urine Present (None Prsent); Nitrite Urine Negative (Negative); Protein Urine 2+ (Negative); RBC Urine Automated 0-2 /hpf (0-2); Urobilinogen Urine Negative (Negative); WBC Urine Automated 0-5 /hpf (0-5)
[2023-05-24 08:18] LABS: Calcium 9.4 mg/dl (8.6-10.3); Creatinine Clr Calc Pharmacy 45.8 ml/min; Est GFR (African American) 65.7 ml/min; Est GFR (Non-African American) 56.7 ml/min; Potassium 4.2 mmol/L (3.5-5.1)
[2023-05-24 08:20] LABS: Basophils % (auto) 0.8 %; Eosinophils # (auto) 0.08 K/uL (0.00-0.50); Eosinophils % (auto) 0.7 %; Hematocrit (blood only) 25.9 % (42.0-52.0); Immature Granulocytes # (auto) 0.58 K/uL (0.01-0.20); Immature Granulocytes % (auto) 4.8 %; Lymphocytes # (auto) 1.22 K/uL (1.20-3.40); Mean Corpuscular Hemoglobin 29.6 pg (25.0-34.0); Mean Corpuscular Hgb Conc 30.9 g/dL (32.0-36.0); Mean Corpuscular Volume 95.9 fL (80.0-100.0); Monocytes # (auto) 1.52 K/uL (0.11-0.59); Monocytes % (auto) 12.5 %; Neutrophils # (auto) 8.68 K/uL (1.40-6.50); Neutrophils % (auto) 71.2 %; Platelet Count 220 K/uL (130-400); RDW Coefficient of Variation 16.4 % (11.5-14.5); RDW Standard Deviation 55.5 fL (36.4-46.3); White Blood Count 12.18 K/ul (4.8-10.8)
[2023-05-24 08:28] LABS: ANTI-Xa, UFH(UnfractionatedHep < 0.10 IU/ml (0.3-0.7); Partial Thromboplastin Time 27 Seconds (21-31); Prothrombin Time 11.4 Seconds (9.0-12.0)
[2023-05-24] MEDS: ASCORBIC ACID 500 MG TAB PO SCH (08:41)
--- NOTE | 2023-05-24 12:02 | Hospitalist Progress Note ---
Date of Service May 24, 2023 Assessment & Plan (1) Blood in mouth of unknown source: Plan: at time of admission he presented with severe bleeding from the mouth it was unclear if the blood was from the nasopharynx, the hard palate ulceration, or the lungs Eliquis was held upon admission due to the above bleeding incident ultimately underwent bronchoscopy -- no source of bleeding was found had bleeding episode earlier this week; uncertain if from the nares OR the hard palate ulceration heparin drip was stopped Dr Kaushik Whitaker from ENT performed laryngoscopy 05/21/23 mild blood in both nares near the anterior nasal septum only; no large area of bleeding found; larynx showed mildly irritated vocal cords but no lesions or areas of blood in the glottis appreciate her assistance using bactroban BID to both nares along with saline spray treating mucositis - see below 05/21 - attempted LOW DOSE protocol for DVT Rx and anticoagulation for [place]udson unfortunately had minor bleeding episode early am 05/23/23 heparin drip remains on hold H/H today stable INR and PTT both wnl today added vitamin C in the rare chance he is vitamin C deficient consider rechallenge with heparin low-dose protocol tomorrow (2) Acute and chronic respiratory failure with hypoxia: Plan: acute - 2nd to pseudomonas pneumonia remains on IV cefepime extensive w/u including CTA chest x 2, bronchoscopy 05/14/23, numerous labs & cultures, etc have failed to identify another pathogen besides pseudomonas cocci, histo, aspergillus, and PJP testing returned from [facility] lab - all negative AFB culture, fungal culture - remain negative from bronch chronic resp failure - 2nd to COPD, lung ca, etc typically on 3L NC O2 at rest, 6L NC O2 with activity will repeat a 2-step day of discharge home cxr 05/21 - slight worsening of infiltrates; this bears close watching procal wnl does have mild leukocytosis - significance uncertain patient also reporting cough with drinking fluids - appreciate speech therapy consult - no change in diet at this time advised with modestly worsening infiltrates could he be having pneumonitis from amiodarone?? consider d/w pulmonary (3) Cavitary lesion of lung: Plan: 6.3cm, LLL s/p bronch by Dr Khan on 05/14/23 brushings/cytologies negative for malignancy Quantiferon gold test negative AFB/fungal cultures from bronch negative only + culture showed pseudomonas see above will need pulmonary follow-up for his extensive pneumonia and complex pulmonary issues (4) Multifocal pneumonia: Plan: had such during his prior hospitalization in 04/2023 complicated by chemo-induced pancytopenia and septic shock evidence of ongoing b/l pneumonia at time of this admission (despite previous 14-day course of IV cefepime for presumed pseudomonas) was on cefepime; changed to IV zosyn for 2+ days after suffering acute res piratory decompensation (possibly due to mucous plugging as CTA chest was largely unchanged from prior CT) ID following; changed back to IV cefepime on 05/20/23 plan is to treat until 06/08/23 patient aware he will need IV cefepime at home see #2 above (5) Acute blood loss anemia: Plan: 2nd to #1 s/p 1 unit PRBCs on hospital day #1 H/H stable today repeat am (6) Chronic systolic CHF (congestive heart failure): Plan: echo 04/2023 - EF 45-50% will follow with [facility] clinic in the future continues with minor LE edema in his feet/ankles only - probably more so due to low albumin as recent level was <2.5 Cr had been trending up, Na trending down - skip lasix today recently discovered left leg DVTs probably contributing to LLE edema as well elevate legs as much as possible (7) PAF (paroxysmal atrial fibrillation): Plan: diagnosed with such in the ICU during prior hospitalization needed IV amiodarone during that stay with conversion to NSR placed on PO Eliquis + amiodarone Eliquis has been on hold since beginning of this admission due to the oral bleeding he presented with attempts at resuming heparin have led to additional oral cavity bleeding 2x this week heparin drip now on hold again cont amiodarone to maintain NSR - 200mg daily (8) Abnormal LFTs: Plan: seen during the prior hospitalization lfts have normalized as of a few days ago ok to cont amiodarone, statin, etc (9) Adenocarcinoma of left lung, stage 3: Plan: dx 01/2023 stage 3a s/p radiation along with chemotherapy last chemo - 04/20/23 - carboplatin/paclitaxel follows with Dr [facility] I spoke with Dr Roque 05/20/23 - he has scheduled f/u with her clinic next week at that visit they will discuss timing of repeat/resumption of chemo (10) History of abdominal aortic aneurysm repair: Plan: 2016 (11) Chronic obstructive pulmonary disease: Plan: with resulting chronic hypoxic resp failure on home O2 prior heavy tobacco dependence cont home inhalers (12) Left leg DVT: Plan: as seen on recent doppler attempts at resuming anticoagulation in the form of heparin drip - even with low-dose protocol - have been met 2x with additional oral cavity bleeding from the mucosal ulcer in mouth and/or the nose if he continues to not tolerate the heparin - IVC Filter by vascular surgery?? (13) Vocal cord nodule: Plan: seen during bronchoscopy earlier in the hospitalization -- laryngeal candidiasis?? direct laryngoscopy by Dr Whitaker on 05/20, however, saw vocal cord erythema but no nodules (14) Mucositis: Plan: severe ongoing present since April unusual in that it is taking so long to heal patient has h/o HSV fever lip blisters took HSV culture from the ulcer base - pending cont: kenalog orabase TID to the ulceration peridex mouthwash BID nystatin swish QID salt water swishes QID if refractory then formal consult with Dr Raffaele Rae, oral surgery has had bleeding from this severe ulcer multiple times (15) Leukocytosis: Plan: WBC count had normalized, trended up, now coming down slowly procal negative no fevers o2 requirement unchanged u/a not suggestive of UTI no other obvious source of infection remains on IV cefepime uncertain of significance of the wbc count being mildly high bears close watching Plan pt's updated at bedside extensively today PT, OT zoe appreciated Admission and Anticipated Discharge Date Admission Date: May 11, 2023 Subjective tele stable overnight no new issues no bleeding from the oral cavity or the nares appetite is same as prior - fair at best minimal cough mild dyspnea on exertion - baseline at bedside during the visit Review of Systems Review of Systems: gen - no fevers or chills cv - no chest pain GI - no abd pain or N/V Physical Exam Physical Exam: gen - NAD, sitting in chair HENT - hard palate with large ulceration; the ulcer area is smaller each day; healing tissue at periphery of ulcer; no bleeding or scabs today; MMM; no thrush nose - no epistaxis neck - no JVD heart - RRR, s1 s2, no murmur lungs - b/l rales bases; no wheeze; no increased work of breathing abd - soft NT ND BS+ ext - <1+ pitting edema feet only, pulses 2+ b/l feet psych - a/o x 3 skin - pallor Results & Data Results & Data Vital Signs (Past 12 Hours) Vital Signs Temp Pulse Pulse Resp BP BP Pulse Ox 05/24/23 10:40 36.4 C L 82 19 108/71 98 05/24/23 07:43 36.9 C 71 18 108/70 95 05/24/23 07:03 61 05/24/23 03:27 36.7 C 72 17 99/58 L 91 O2 Del Method O2 Flow Rate 05/24/23 10:40 Nasal Cannula 3 05/24/23 07:43 Nasal Cannula 3 05/24/23 07:03 05/24/23 03:27 High Flow Nasal Cannula 3 Laboratory Results Laboratory Results - last 24 hr 05/23/23 05/23/23 05/23/23 15:30 16:27 Unknown WBC 14.53 H RBC 2.80 L Hgb 8.3 L Hct 26.9 L MCV 96.1 MCH 29.6 MCHC 30.9 L RDW Std Deviation 54.9 H RDW Coeff of Fany 16.1 H Plt Count 243 MPV 10.0 Sodium 134 L Potassium 4.7 Chloride 102 Carbon Dioxide 28 Anion Gap 4 BUN 36 H Creatinine 1.36 Est Cr Clr Drug Dosing 43.2 Est GFR ( Amer) 58.2 Est GFR (Non-Af Amer) 50.2 BUN/Creatinine Ratio 26.5 H Glucose 106 H Calcium 9.3 Magnesium 1.7 Procalcitonin 0.38 Cortisol AM Sample Urine Color Yellow Urine Appearance Clear Urine pH 6.0 Ur Specific [place] 1.020 Urine Protein 2+ H Urine Glucose (UA) Negative Urine Ketones Trace H Urine Blood Trace H Urine Nitrite Negative Urine Bilirubin Negative Urine Urobilinogen Negative Ur Leukocyte Esterase Negative Urine WBC (Auto) 0-5 Urine RBC (Auto) 0-2 U Hyaline Cast (Auto) 3-5 H U Epithel Cells (Auto) 0-2 Urine Bacteria (Auto) None Seen Urine Mucus Present A Herpes Virus Source Pending HSV I DNA PCR Pending HSV II DNA PCR Pending 05/24/23 07:26 WBC 12.18 H RBC 2.70 L Hgb 8.0 L Hct 25.9 L MCV 95.9 MCH 29.6 MCHC 30.9 L RDW Std Deviation 55.5 H RDW Coeff of Fany 16.4 H Plt Count 220 MPV 10.0 Immature Gran % (Auto) 4.8 Neut % (Auto) 71.2 Lymph % (Auto) 10.0 [place] % (Auto) 12.5 Eos % (Auto) 0.7 Baso % (Auto) 0.8 Neut # (Auto) 8.68 H Lymph # (Auto) 1.22 [place] # (Auto) 1.52 H Eos # (Auto) 0.08 Baso # (Auto) 0.10 Immature Gran # (Auto) 0.58 H PT 11.4 INR 1.0 APTT 27 PTT Ratio 1.0 Heparin Anti-Xa, Unfract < 0.10 L Sodium 136 Potassium 4.2 Chloride 104 Carbon Dioxide 27 Anion Gap 5 BUN 32 H Creatinine 1.23 Est Cr Clr Drug Dosing 45.8 Est GFR ( Amer) 65.7 Est GFR (Non-Af Amer) 56.7 BUN/Creatinine Ratio 26.0 H Glucose 99 Calcium 9.4 Cortisol AM Sample 19.48 PG Care Time/CCT Total # of Minutes Spent Total Time Spent with Patient: Total time spent is greater than 50% in coordination of care (as documented) at patient's floor/unit and/or counseling patient: Coding Level of Care Code 28335 SUB INP/OBS CARE 2/35MIN Diagnoses Blood in mouth of unknown source K13.79 Acute and chronic respiratory failure with hypoxia J96.21 Cavitary lesion of lung J98.4 Multifocal pneumonia J18.9 Acute blood loss anemia D62 Chronic systolic CHF (congestive heart failure) I50.22 PAF (paroxysmal atrial fibrillation) I48.0 Abnormal LFTs R79.89 Adenocarcinoma of left lung, stage 3 C34.92 History of abdominal aortic aneurysm repair Z98.890 Centrilobular emphysema J43.2 COPD type: emphysema Emphysema type: centrilobular Left leg DVT I82.402 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 (11) 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
[2023-05-25 06:29] LABS: Albumin Level 2.6 gm/dl (3.4-5.0); BUN Creatinine Ratio 23.7 (10-20); Bilirubin Direct 0.2 mg/dl (0-0.2); Bilirubin,Total 0.7 mg/dl (0.2-1.0); Calcium 9.3 mg/dl (8.6-10.3); Creatinine Clr Calc Pharmacy 41.7 ml/min; Est GFR (African American) 58.7 ml/min; Est GFR (Non-African American) 50.6 ml/min; Potassium 4.2 mmol/L (3.5-5.1); Total Protein 6.4 gm/dl (6.0-8.3)
--- NOTE | 2023-05-25 12:08 | Ultrasound Report ---
LEFT LOWER EXTREMITY VENOUS DOPPLER CLINICAL HISTORY: recent LLE DVT, interval change COMPARISON STUDY: Bilateral lower extremity venous Doppler ultrasound May 17, 2023. TECHNIQUE: Sonography of the deep venous system of the left lower extremity was performed. Compressi on and augmentation were evaluated. FINDINGS: The venous thrombus within the left common femoral and greater saphenous veins on ultrasou nd of May 17, 2023 has nearly completely resolved. There is mild residual wall thickening within the left common femoral vein. Nonocclusive deep venous thrombus within the left peroneal vein was not id entified on prior exam. IMPRESSION: 1. Deep venous thrombus within the left peroneal vein, not evident on ultrasound May 17, 2023. 2. Near complete resolution of thrombus within left common femoral and greater saphenous veins shown on prior ultrasound. ACT 112: Negative or not required by law. Electronically signed by: Ascencion Hodge M.D. 05/25/2023 12:07 PM
--- NOTE | 2023-05-25 14:59 | Hospitalist Progress Note ---
Date of Service May 25, 2023 Assessment & Plan (1) Blood in mouth of unknown source: Plan: at time of admission he presented with severe bleeding from the mouth it was unclear if the blood was from the nasopharynx, the hard palate ulceration, or the lungs Eliquis was stopped upon admission due to the above bleeding incident ultimately underwent bronchoscopy -- no source of bleeding was found in the lungs had bleeding episode early last week; uncertain if from the nares OR the hard palate ulceration heparin drip was stopped Dr Kaushik Whitaker from ENT performed laryngoscopy 05/21/23 mild blood in both nares near the anterior nasal septum only; no large area of bleeding found; larynx showed mildly irritated vocal cords but no lesions or areas of blood in the glottis appreciate her assistance since ENT saw patient bactroban BID to both nares along with saline spray have been used to heel and moisten the nares treating mucositis - see below 05/22/23 - attempted LOW DOSE protocol for DVT Rx and anticoagulation for a.fib unfortunately had minor bleeding episode early am 05/23/23 heparin drip on hold since AM of 05/23/23 had minor bleeding early this am - self-limited; this occurred off all forms of anticoagulation fortunately H/H remain stable added vitamin C in the rare chance he is vitamin C deficient I corresponded with Dr Raffaele Rae from oral surgery - see below I spoke with Dr Manuel from vascular surgery - see below CBC am (2) Left leg DVT: Plan: dx 05/17/23 - common femoral, superficial femoral, and greater saphenous vein - left leg attempts at resuming anticoagulation in the form of heparin drip - even with low-dose protocol - have been met 2x with additional oral cavity bleeding from the mucosal ulcer in mouth and/or the nose he had minor bleeding this am from the oral ulcer on hard palate - OFF of heparin lengthy discussion held with Dr Manuel from vascular surgery this am He looked at doppler from 05/16 He advised repeat doppler of LLE today This was obtained, and although the femoral DVTs are resolving, he has a NEW peroneal DVT Spoke with Dr Manuel again following the new doppler -- he will consult formally tomorrow; he advised - * observe off of heparin drip due to ongoing bleeding * repeat doppler of LLE in 3 days to reassess the peroneal DVT * in terms of IVC filter - placement would hinge on how he does next few days and what the repeat doppler shows in 3 days consider heparin SUBCU so that at least he has something on board consider that tomorrow morning (3) Acute and chronic respiratory failure with hypoxia: Plan: acute - 2nd to pseudomonas pneumonia remains on IV cefepime extensive w/u including CTA chest x 2, bronchoscopy 05/14/23, numerous labs & cultures, etc have failed to identify another pathogen besides pseudomonas cocci, histo, aspergillus, and PJP testing returned from [facility] lab - all negative AFB culture, fungal culture - remain negative from bronch chronic resp failure - 2nd to COPD, lung ca, etc typically on 3L NC O2 at rest, 6L NC O2 with activity will repeat a 2-step day of discharge home cxr 05/21 - slight worsening of infiltrates; this bears close watching procal wnl does have mild leukocytosis - significance uncertain patient also reporting cough with drinking fluids - appreciate speech therapy consult - no change in diet at this time advised with modestly worsening infiltrates could he be having pneumonitis from amiodarone?? consider d/w pulmonary if any worsening of O2 requirements, etc (4) Cavitary lesion of lung: Plan: 6.3cm, LLL s/p bronch by Dr Khan on 05/14/23 brushings/cytologies negative for malignancy Quantiferon gold test negative AFB/fungal cultures from bronch negative only + culture showed pseudomonas see above will need pulmonary follow-up for his extensive pneumonia and complex pulmonary issues (5) Multifocal pneumonia: Plan: had such during his prior hospitalization in 04/2023 complicated by chemo-induced pancytopenia and septic shock evidence of ongoing b/l pneumonia at time of this admission (despite previous 14-day course of IV cefepime for presumed pseudomonas) was on cefepime; changed to IV zosyn for 2+ days after suffering acute respiratory decompensation (possibly due to mucous plugging as CTA chest was largely unchanged from prior CT) ID following; changed back to IV cefepime on 05/20/23 plan is to treat until 06/08/23 patient aware he will need IV cefepime at home see above (6) Acute blood loss anemia: Plan: 2nd to #1 s/p 1 unit PRBCs on hospital day #1 H/H stable since then with fluctuations at times but has not needed additional blood repeat am (7) Chronic systolic CHF (congestive heart failure): Plan: echo 04/2023 - EF 45-50% will follow with [facility] clinic in the future after discharge continues with minor LE edema in his feet/ankles only - probably more so due to low albumin rather than CHF itself Cr had been trending up, Na trending down - skip lasix 1 more day, likely resume tomorrow on 05/25 left leg DVTs probably contributing to LLE edema as well elevate legs as much as possible (8) PAF (paroxysmal atrial fibrillation): Plan: diagnosed with such in the ICU during prior hospitalization needed IV amiodarone during that stay with conversion to NSR placed on PO Eliquis + amiodarone Eliquis has been on hold since beginning of this admission due to the oral bleeding he presented with attempts at resuming heparin have led to additional oral cavity bleeding 2x this week heparin drip now on hold again cont amiodarone to maintain NSR - 200mg daily had junctional rhythm - no symptoms, was sleeping when it was seen lasted 30-40 minutes was hemodynamically stable spoke with on-call cardiology - ok to continue amiodarone at current dose (9) Abnormal LFTs: Plan: seen during the prior hospitalization lfts have normalized ok to cont amiodarone, statin, etc low albumin slowly improving - patient drinking protein drink at least once daily (10) Adenocarcinoma of left lung, stage 3: Plan: dx 01/2023 stage 3a s/p radiation along with chemotherapy last chemo - 04/20/23 - carboplatin/paclitaxel follows with Dr [facility] I spoke with Dr Roque 05/20/23 - he has scheduled f/u with her this week (05/26) highly doubt he will be out of hospital by then this will need to be rescheduled this appt on 05/26 was to discuss timing of resumption of his chemo (11) History of abdominal aortic aneurysm repair: Plan: 2015 (12) Chronic obstructive pulmonary disease: Plan: with resulting chronic hypoxic resp failure on home O2 prior heavy tobacco dependence cont home inhalers no exacerbation at this time (13) Vocal cord nodule: Plan: seen during bronchoscopy earlier in the hospitalization -- laryngeal candidiasis?? direct laryngoscopy by Dr Whitaker on 05/20, however, saw vocal cord erythema but no nodules (14) Mucositis: Plan: severe ongoing present since April unusual in that it is taking so long to heal patient has h/o HSV fever lip blisters took HSV DNA swab from the ulcer base this weekend- pending cont: kenalog orabase TID to the ulceration peridex mouthwash BID nystatin swish QID salt water swishes QID since it has been refractory and he continues with spontaneous bleeding I placed formal consult with Dr Raffaele Rae, oral surgery (he had provided many of the above recommendations for Rx last week) has had bleeding from this severe ulcer multiple times (15) Leukocytosis: Plan: WBC count had normalized, trended up, now coming down slowly procal negative no fevers o2 requirement unchanged u/a not suggestive of UTI no other obvious source of infection remains on IV cefepime uncertain of significance of the wbc count being mildly high bears close watching cbc in am Plan pt's updated at bedside extensively today PT, OT zoe appreciated Admission and Anticipated Discharge Date Admission Date: May 11, 2023 Subjective had 2 very minor episodes of bleeding from the mouth overnight both resolved quickly 1 of them had a clot no epistaxis cough unchanged mild MO unchanged appetite fair at best -- "not as good as it was" tele overnight - had 30-40 minutes of accelerated junctional rhythm about 2230/2300 last pm I confirmed with the patient he was fast asleep at that time no a.fib or a.flutter Review of Systems Review of Systems: gen - no fevers or chills cv - no chest pain, no orthopnea, edema of feet/ankles only pulm - no juve hemoptysis GI - no abd pain or N/V Physical Exam Physical Exam: gen - NAD, sitting in chair, looks similar to yesterday HENT - hard palate with large ulceration; there is an erythematous area in the left portion of this ulcer with tiny scab (was not present yesterday); healing tissue at periphery of ulcer especially on pt's right; there is a separate ulcer, much smaller just posterior to his maxillary central incisors; MMM; no thrush nose - no epistaxis neck - no JVD heart - RRR, s1 s2, no murmur lungs - b/l rales bases especially on left; no wheeze; no increased work of breathing abd - soft NT ND BS+ ext - <1+ pitting edema feet only, pulses 2+ b/l feet psych - a/o x 3 skin - pallor Results & Data Results & Data Vital Signs (Past 12 Hours) Vital Signs Temp Pulse Resp BP BP Pulse Ox O2 Del Method 05/25/23 11:35 36.5 C 86 20 114/68 93 Nasal Cannula 05/25/23 07:36 36.5 C 73 19 110/65 94 Nasal Cannula O2 Flow Rate 05/25/23 11:35 3 05/25/23 07:36 3 Laboratory Results Laboratory Results - last 48 hr 05/24/23 05/25/23 07:26 05:43 WBC 12.18 H RBC 2.70 L Hgb 8.0 L 8.0 L Hct 25.9 L MCV 95.9 MCH 29.6 MCHC 30.9 L RDW Std Deviation 55.5 H RDW Coeff of Fany 16.4 H Plt Count 220 MPV 10.0 Immature Gran % (Auto) 4.8 Neut % (Auto) 71.2 Lymph % (Auto) 10.0 [place] % (Auto) 12.5 Eos % (Auto) 0.7 Baso % (Auto) 0.8 Neut # (Auto) 8.68 H Lymph # (Auto) 1.22 [place] # (Auto) 1.52 H Eos # (Auto) 0.08 Baso # (Auto) 0.10 Immature Gran # (Auto) 0.58 H PT 11.4 INR 1.0 APTT 27 PTT Ratio 1.0 Heparin Anti-Xa, Unfract < 0.10 L Sodium 136 137 Potassium 4.2 4.2 Chloride 104 104 Carbon Dioxide 27 29 Anion Gap 5 4 BUN 32 H 32 H Creatinine 1.23 1.35 Est Cr Clr Drug Dosing 45.8 41.7 Est GFR ( Amer) 65.7 58.7 Est GFR (Non-Af Amer) 56.7 50.6 BUN/Creatinine Ratio 26.0 H 23.7 H Glucose 99 98 Calcium 9.4 9.3 Total Bilirubin 0.7 Direct Bilirubin 0.2 AST 27 ALT 42 Alkaline Phosphatase 59 Total Protein 6.4 Albumin 2.6 L Cortisol AM Sample 19.48 PG Care Time/CCT Total # of Minutes Spent Total Time Spent with Patient: Total time spent is greater than 50% in coordination of care (as documented) at patient's floor/unit and/or counseling patient: Coding Level of Care Code 54538 SUB INP/OBS CARE 3/50MIN Diagnoses Blood in mouth of unknown source K13.79 Left leg DVT I82.402 Acute and chronic respiratory failure with hypoxia J96.21 Cavitary lesion of lung J98.4 Multifocal pneumonia J18.9 Acute blood loss anemia D62 Chronic systolic CHF (congestive heart failure) I50.22 PAF (paroxysmal atrial fibrillation) I48.0 Abnormal LFTs R79.89 Adenocarcinoma of left lung, stage 3 C34.92 History of abdominal aortic aneurysm repair Z98.890 Centrilobular emphysema J43.2 COPD type: emphysema Emphysema type: centrilobular 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 (12) 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
[2023-05-25] MEDS: SILVER NITR/POTASSIUM NITRATE APPLICATOR ONE (18:30)
[2023-05-26 08:02] LABS: Hematocrit (blood only) 24.6 % (42.0-52.0); Hemoglobin 7.9 g/dl (14.0-18.0); Mean Corpuscular Hemoglobin 30.2 pg (25.0-34.0); Mean Corpuscular Hgb Conc 32.1 g/dL (32.0-36.0); Mean Corpuscular Volume 93.9 fL (80.0-100.0); Mean Platelet Volume 9.8 fL (9.4-12.4); Platelet Count 180 K/uL (130-400); RDW Coefficient of Variation 16.7 % (11.5-14.5); RDW Standard Deviation 55.3 fL (36.4-46.3); Red Blood Count 2.62 M/uL (4.70-6.10); White Blood Count 11.75 K/ul (4.8-10.8)
[2023-05-26 08:33] LABS: Calcium 9.3 mg/dl (8.6-10.3); Creatinine Clr Calc Pharmacy 46.3 ml/min; Est GFR (African American) 66.3 ml/min; Est GFR (Non-African American) 57.2 ml/min
--- NOTE | 2023-05-26 09:38 | Consultation ---
Date of Consultation May 26, 2023 Assessment & Plan (1) Left leg DVT: Pt with chronic appearing LLE peroneal V DVT. No other DVT noted. Pt does not require AC for this. Was eval by ENT for epistaxis/mouth bleeding. Decision whether to resume AC for A fib deferred to medical team/cardiology. Please call if needed. History of Present Illness Reason for Consultation: DVT Attending Physician: Yue Beltran MD History of Present Illness 78 yo m with hx of PAF on eliquis, CHF, pancytopenia, COPD, lung ca, AAA s/p repair, admitted with bacteremia/septic shock, and found to have DVT, seen in consultation today for possible IVC filter insertion d/t epistaxis. Pt follows at [facility] for his AAA repair in 2016. Pt states he has been having some edema in BLE at ankles/feet. Denies any pain in feet or legs. Pt admits fatigue. Denies RODRIGUEZ, fever, chest pain, SOB, abd pain, N/V, rest pain, claudication, other complaints. Initial BLE venous doppler demonstrated possible L common fem V DVT. New venous doppler done yesterday demonstrates no CFV DVT, but does show a chronic appearing L peroneal v DVT. Allergies Allergy/AdvReac Type Severity Reaction Status Date / Time JUAN R Inhibitors AdvReac Intermediate hyperkalemi Verified 05/11/23 09:37 a Home Medications Medication Instructions Recorded Confirmed Type ascorbate calcium (vitamin C) 500 500 mg PO QAM 09/23/18 05/11/23 History mg tablet aspirin 81 mg tablet,delayed 81 mg PO QAM 09/23/18 05/11/23 History release (Adult Aspirin Regimen) vitamin E succinate 268 mg (400 400 units PO QAM 11/30/18 05/11/23 History unit) tablet albuterol sulfate 90 mcg/actuation 2 inh inhalation QID PRN shortness 12/19/20 05/11/23 Rx aerosol inhaler of breath or wheezing #8.5 grams atorvastatin 20 mg tablet (Lipitor) 20 mg PO PM 90 days #90 tabs 06/24/22 05/11/23 Rx cholecalciferol (vitamin D3) 50 50 mcg PO QPM 01/20/23 05/11/23 History mcg (2,000 unit) capsule (Vitamin D3) prochlorperazine maleate 10 mg 10 mg PO Q8H PRN Nausea 02/07/24 04/01/24 History tablet (Compazine) fluticasone fur. 100 mcg-umeclid 1 inh inhalation DAILY #60 ea 03/31/23 05/11/23 Rx 62.5 mcg-vilant 25 mcg inhalat.powder (Trelegy Ellipta) dexamethasone 4 mg tablet 4 mg PO UD 04/21/23 05/11/23 History ondansetron 8 mg disintegrating 8 mg PO Q8 PRN Nausea And Vomiting 04/21/23 05/11/23 History tablet amiodarone 200 mg tablet 200 mg PO BIDM #60 tabs 05/01/23 05/11/23 Rx apixaban 5 mg tablet (Eliquis) 5 mg PO BID #60 tabs 05/01/23 05/11/23 Rx Oxygen Home E0424 #1 L 05/05/23 05/07/23 Rx furosemide 20 mg tablet (Lasix) 20 mg PO QAM #30 tabs 05/05/23 05/11/23 Rx magnesium oxide 400 mg (241.3 mg 400 mg PO QAM #30 tabs 05/05/23 05/11/23 Rx magnesium) tablet potassium chloride 10 mEq 10 meq PO DAILY #30 tabs 05/05/23 05/11/23 Rx tablet,extended release nystatin 100,000 unit/mL oral 5 ml PO QID 7 days #140 mL 05/07/23 05/11/23 Rx suspension Patient History Medical History Weakness of voice Diarrhea Multifocal pneumonia Chronic diastolic heart failure Chronic obstructive pulmonary disease Lower extremity edema BPH (benign prostatic hyperplasia) Hyperlipidemia Lung cancer Abdominal aortic aneurysm s/p repair 2015 Multiple pulmonary nodules determined by computed tomography of lung BPH (benign prostatic hyperplasia) Kidney stones hx PVC (premature ventricular contraction) on occasion Hypertension Diverticulosis Hyperlipemia COPD (chronic obstructive pulmonary disease) well controlled per pt > no res inh use Surgical History History of aortic aneurysm repair endovascular > [facility] > 2016 > follows with [facility] cardiology. Has to go for scan on 02/06/23 to check for "leak around the stent" as evidence of size increase per recent ultrasound [facility]. History of cataract surgery bilat History of tooth extraction dental implants History of lithotripsy History of inguinal hernia repair left x 1, right x 2. H/O colonoscopy 07/2020 repeat 5 years Family History Father Colon cancer Colorectal cancer Family/Other Heart disease Hypertension Mother Stroke Denies family history of Ovarian cancer Prostate cancer Myocardial infarction Breast cancer Social History Smoking Status: Former smoker Tobacco Type: Cigarettes Age Started Using Tobacco: 32; packs per day: 0.5; Cigarettes Per Day: 10 cigs per day; Second Hand Exposure: No; Do You Dip or Chew Tobacco: No; Hx Alcohol Use: No Hx Substance Use: No Preferred Language: Cambodian Communication Ability: Effective Visual Impairment: Limited Hearing Ability: Normal Operator Helper Required: No Beliefs That Will Affect Care: None marital status: Current Living Situation: Spouse Current Living Situation Comment: lives with 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 How many Children do You have: 1 Feels Safe at Home: Yes Childhood Exposure to Second-Hand Smoke: No caffeine: Yes Dental Care, Regularly: Yes Physical Activity Frequency: Does not Exercise Seatbelt Use: always Sunscreen Use: Yes Assistive Devices: None Review of Systems Review of Systems: All systems reviewed & are unremarkable except as noted in HPI & below Physical Exam Constitutional: WD/WN, vitals as above cooperative and comfortable; not in distress ENMT: Ears: no hearing impairment Neck: trachea midline Respiratory: normal respiratory effort, lungs clear to auscultation Auscultation: + diminished lung sounds Cardiovascular: Rate/Rhythm: + irregularly irregular Vessels: posterior tibial pulses present, dorsalis pedis pulses present and radial pulses present; + abnormal peripheral pulses Extremities: normal capillary refill and + edema (+3 pitting edema BL ankles/feet) Gastrointestinal (Abdomen): Inspection/Auscultation: abdomen normal to inspection and normal bowel sounds Percussion/Palpation: abdomen soft; abdomen nontender Musculoskeletal: no cyanosis or clubbing, extremities motor strength 5/5 Skin: no rashes, warm and dry Neurologic: moves all extremities and awake; no focal motor deficits and not confused Psychiatric: A+Ox3, euthymic affect Results & Data Vital Signs (Past 12 Hours) Vital Signs Temp Pulse Pulse Resp BP Pulse Ox O2 Del Method 05/26/23 08:11 Nasal Cannula 05/26/23 08:00 79 05/26/23 07:07 36.5 C 72 17 115/69 89 L Oxymask 05/26/23 02:57 36.9 C 74 20 112/67 91 Oxymask 05/26/23 00:00 73 05/25/23 23:18 36.9 C 74 20 113/70 91 Oxymask O2 Flow Rate 05/26/23 08:11 3 05/26/23 08:00 05/26/23 07:07 3 05/26/23 02:57 3 05/26/23 00:00 05/25/23 23:18 3
[2023-05-26] MEDS: ENOXAPARIN INJ 40 MG/0.4 ML SYR SQ SCH (11:27)
--- NOTE | 2023-05-26 14:28 | Hospitalist Progress Note ---
Date of Service May 26, 2023 Assessment & Plan (1) Blood in mouth of unknown source: Plan: at time of admission he presented with severe bleeding from the mouth it was unclear if the blood was from the nasopharynx, the hard palate ulceration, or the lungs Eliquis was stopped upon admission due to the above bleeding incident ultimately underwent bronchoscopy -- no source of bleeding was found in the lungs had bleeding episode early last week; uncertain if from the nares OR the hard palate ulceration heparin drip was stopped Dr Kaushik Whitaker from ENT performed laryngoscopy 05/21/23 mild blood in both nares near the anterior nasal septum only; no large area of bleeding found; larynx showed mildly irritated vocal cords but no lesions or areas of blood in the glottis appreciate her assistance since ENT saw patient bactroban BID to both nares along with saline spray have been used to heel and moisten the nares treating mucositis - see below 05/22/23 - attempted LOW DOSE protocol for DVT Rx and anticoagulation for a.fib unfortunately had minor bleeding episode early am 05/23/23, heparin stopped, minor bleeding AM of 05/[address] Raffaele Rae from oral surgery - see below I spoke with Dr Manuel from vascular surgery - see below CBC am (2) Left leg DVT: Plan: dx 05/17/23 - common femoral, superficial femoral, and greater saphenous vein - left leg attempts at resuming anticoagulation in the form of heparin drip - even with low-dose protocol - have been met 2x with additional oral cavity bleeding from the mucosal ulcer in mouth and/or the nose 05/24 repeat LE duplex - near complete resolution of thrombus within L common femoral and saphenous vein, mild residual wall thickening in L CF vein. DVT L peroneal vein reported to be new Consulted Dr. Manuel, vascular surgery. 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 Roque for follow up (3) Acute and chronic respiratory failure with hypoxia: Plan: acute - 2nd to pseudomonas pneumonia remains on IV cefepime extensive w/u including CTA chest x 2, bronchoscopy 05/14/23, numerous labs & cultures, etc have failed to identify another pathogen besides pseudomonas cocci, histo, aspergillus, and PJP testing returned from [facility] lab - all negative AFB culture, fungal culture - remain negative from bronch chronic resp failure - 2nd to COPD, lung ca, etc typically on 3L NC O2 at rest, 6L NC O2 with activity. Currently 3L at rest and 4L with activity reporting cough with drinking fluids - appreciate speech therapy consult - no change in diet at this time advised (4) Cavitary lesion of lung: Plan: 6.3cm, LLL s/p bronch by Dr Khan on 05/14/23 brushings/cytologies negative for malignancy Quantiferon gold test negative AFB/fungal cultures from bronch negative only + culture showed pseudomonas see above will need pulmonary follow-up for his extensive pneumonia and complex pulmonary issues (5) Multifocal pneumonia: Plan: had such during his prior hospitalization in 04/2023 complicated by chemo-induced pancytopenia and septic shock evidence of ongoing b/l pneumonia at time of this admission (despite previous 14-day course of IV cefepime for presumed pseudomonas) was on cefepime; changed to IV zosyn for 2+ days after suffering acute respiratory decompensation (possibly due to mucous plugging as CTA chest was largely unchanged from prior CT) IV cefepime through 06/07, place US guided PIV, discussed with care coordination to set up home infusion ID follow up recommended (6) Acute blood loss anemia: Plan: caused by oropharyngeal bleeding s/p 1 unit PRBCs on hospital day #1, stable thereafter (7) Chronic systolic CHF (congestive heart failure): Plan: echo 04/2023 - EF 45-50% will follow with [facility] CHF clinic in the future after discharge continues with minor LE edema in his feet/ankles only - probably more so due to low albumin rather than CHF itself -resume oral lasix -elevate LE -discussed nutrition (8) PAF (paroxysmal atrial fibrillation): Plan: diagnosed with such in the ICU during prior hospitalization needed IV amiodarone during that stay with conversion to NSR placed on PO Eliquis + amiodarone Eliquis has been on hold since beginning of this admission due to the oral bleeding he presented with attempts at resuming heparin have led to additional oral cavity bleeding 2x this week heparin drip now on hold again cont amiodarone to maintain NSR - 200mg daily had junctional rhythm - no symptoms, was sleeping when it was seen lasted 30-40 minutes was hemodynamically stable spoke with on-call cardiology - ok to continue amiodarone at current dose (9) Abnormal LFTs: Plan: seen during the prior hospitalization lfts have normalized ok to cont amiodarone, statin, etc low albumin slowly improving - patient drinking protein drink at least once daily (10) Adenocarcinoma of left lung, stage 3: Plan: dx 01/2023 stage 3a s/p radiation along with chemotherapy last chemo - 04/20/23 - carboplatin/paclitaxel follows with Dr Roque, [facility] spoke with Dr Roque 05/20/23 - he has scheduled f/u with her this week (05/26) highly doubt he will be out of hospital by then this will need to be rescheduled this appt on 05/26 was to discuss timing of resumption of his chemo (11) History of abdominal aortic aneurysm repair: Plan: 2015 (12) Chronic obstructive pulmonary disease: Plan: with resulting chronic hypoxic resp failure on home O2 prior heavy tobacco dependence cont home inhalers no exacerbation at this time (13) Vocal cord nodule: Plan: seen during bronchoscopy earlier in the hospitalization - treated with nystatin for presumed candidiasis direct laryngoscopy by Dr Whitaker on 05/20, however, saw vocal cord erythema but no nodules -voice improving (14) Mucositis: Plan: severe ongoing present since April unusual in that it is taking so long to heal patient has h/o HSV fever lip blisters took HSV DNA swab from the ulcer base this weekend- pending cont: kenalog orabase TID to the ulceration peridex mouthwash BID nystatin swish QID salt water swishes QID Dr. Rae consulted, Nilesh reports he cauterized an area of the ulcer yesterday AM and checked in today, recommended he follow up with his dentist (15) Leukocytosis: Plan: WBC count had normalized, trended up, now coming down slowly procal negative no fevers o2 requirement unchanged u/a not suggestive of UTI no other obvious source of infection remains on IV cefepime downtrending, most likely related to ongoing pulmonary inflammation Plan pt's updated at bedside 05/25 hopeful for discharge tomorrow Admission and Anticipated Discharge Date Admission Date: May 11, 2023 Subjective no further oral bleeding since yesterday dyspnea on exertion and foot/ankle swelling unchanged Physical Exam 2 Physical Exam: PHYSICAL EXAMINATION Last 24h vital signs reviewed, see documentation in flowsheet General: sitting in chair HEENT: Normocephalic, atraumatic, pupils round and equal, sclerae anicteric, no conjunctival injection, moist mucus membranes. hoarseness improved. shallow large ulcer on roof of mouth clean based very slight amount of blood Lungs: Normal respiratory effort. Prolonged expiratory phase. crackles in both bases, diminished L base Heart: Regular rate and rhythm, no murmurs. No JVD Abdomen: nondistended. Extremities: Warm, dry, well-perfused. 1-2+ extremity edema to mid chatman Neuro: Alert and oriented x 4, face symmetric, moves 4 extremities well Psych: Normal affect and behavior Results & Data Results & Data Vital Signs (Past 12 Hours) Vital Signs Temp Pulse Pulse Resp BP Pulse Ox O2 Del Method 05/26/23 10:52 36.6 C 78 19 104/67 100 Nasal Cannula 05/26/23 08:11 Nasal Cannula 05/26/23 08:00 79 05/26/23 07:07 36.5 C 72 17 115/69 89 L Oxymask 05/26/23 02:57 36.9 C 74 20 112/67 91 Oxymask O2 Flow Rate 05/26/23 10:52 4 05/26/23 08:11 3 05/26/23 08:00 05/26/23 07:07 3 05/26/23 02:57 3 Laboratory Results 05/26/23 07:32 05/26/23 07:32 PG Care Time/CCT Total # of Minutes Spent Total Time Spent with Patient: Total time spent is greater than 50% in coordination of care (as documented) at patient's floor/unit and/or counseling patient: Coding Level of Care Code 64496 SUB INP/OBS CARE 2/35MIN Diagnoses Blood in mouth of unknown source K13.79 Left leg DVT I82.402 Acute and chronic respiratory failure with hypoxia J96.21 Cavitary lesion of lung J98.4 Multifocal pneumonia J18.9 Acute blood loss anemia D62 Chronic systolic CHF (congestive heart failure) I50.22 PAF (paroxysmal atrial fibrillation) I48.0 Abnormal LFTs R79.89 Adenocarcinoma of left lung, stage 3 C34.92 History of abdominal aortic aneurysm repair Z98.890 Centrilobular emphysema J43.2 COPD type: emphysema Emphysema type: centrilobular 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 (12) 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
--- NOTE | 2023-05-26 14:42 | Oral/Maxillofacial Consult ---
Date of Consultation May 26, 2023 Assessment & Plan (1) Leukocytosis: (2) Mucositis: (3) Bilateral pneumonia: (4) Blood in mouth of unknown source: (5) Recurrent oral ulcers: History of Present Illness Reason for Consultation: large ulcer of hard palate with bleeding Attending Physician: Yue Beltran MD History of Present Illness Nilesh has many medically issues that are contributing to the recurrent and non healing ulcers. I suggested the use of Peridex, Kenalog of Orabase and Lidex gel to apply to the large ulcer. Nilesh has been wakening up to find blood in his mouth. ENT did a nasal scope and could not find any nasal or throat issues. I also did a complete oral exam and could not come up with any other cause of the bleeding except the ulcers that were hemorrhagic in nature.. I saw Nilesh in his room on ThursdayMay 24 for our consult. There was a large ulcer located on the palatal vault--for the most part it looks like the lesions are responding to the current treatment. There were 2 sites where the ulcer has not healing this tissue was in my opinion the site of the bleeding. I was able to use a silver nitric stick to coagulate the bleeding sites--this worked very well. Hopefully the ulcers on the palate will slowly heal. Given the need for ongoing Chemotherapy and RT it will be a good idea that his dentist make him a full palatal stent to aid in the healing of the lesions. The stent will also be used to carry the steroid gel or paste and hold it in place and protect the hard palate to prevent issues with recurrent or non he aling ulcers. I checked on Mr. Davis and I was glad he had no oral bleeding last night. His mouth is very dry and this may also be a contributing to development of these ulcers along with the chemo and other medication. I gave Nilesh my contact information and suggested he set up a follow up appointment with me in 3-5 weeks. I will reach out to his dentist (Dr Rose). I suggested that Nilesh follow up with me once he is discharged Allergies Allergy/AdvReac Type Severity Reaction Status Date / Time JUAN R Inhibitors AdvReac Intermediate hyperkalemi Verified 05/11/23 09:37 a Home Medications Medication Instructions Recorded Confirmed Type ascorbate calcium (vitamin C) 500 500 mg PO QAM 09/23/18 05/11/23 History mg tablet aspirin 81 mg tablet,delayed 81 mg PO QAM 09/23/18 05/11/23 History release (Adult Aspirin Regimen) vitamin E succinate 268 mg (400 400 units PO QAM 11/30/18 05/11/23 History unit) tablet albuterol sulfate 90 mcg/actuation 2 inh inhalation QID PRN shortness 12/19/20 05/11/23 Rx aerosol inhaler of breath or wheezing #8.5 grams atorvastatin 20 mg tablet (Lipitor) 20 mg PO PM 90 days #90 tabs 06/24/22 05/11/23 Rx cholecalciferol (vitamin D3) 50 50 mcg PO QPM 01/20/23 05/11/23 History mcg (2,000 unit) capsule (Vitamin D3) prochlorperazine maleate 10 mg 10 mg PO Q8H PRN Nausea 03/18/23 05/11/23 History tablet (Compazine) fluticasone fur. 100 mcg-umeclid 1 inh inhalation DAILY #60 ea 03/31/23 05/11/23 Rx 62.5 mcg-vilant 25 mcg inhalat.powder (Trelegy Ellipta) dexamethasone 4 mg tablet 4 mg PO UD 04/21/23 05/11/23 History ondansetron 8 mg disintegrating 8 mg PO Q8 PRN Nausea And Vomiting 04/21/23 05/11/23 History tablet amiodarone 200 mg tablet 200 mg PO BIDM #60 tabs 05/01/23 05/11/23 Rx apixaban 5 mg tablet (Eliquis) 5 mg PO BID #60 tabs 05/01/23 05/11/23 Rx Oxygen Home E0424 #1 L 05/05/23 05/07/23 Rx furosemide 20 mg tablet (Lasix) 20 mg PO QAM #30 tabs 05/05/23 05/11/23 Rx magnesium oxide 400 mg (241.3 mg 400 mg PO QAM #30 tabs 05/05/23 05/11/23 Rx magnesium) tablet potassium chloride 10 mEq 10 meq PO DAILY #30 tabs 05/05/23 05/11/23 Rx tablet,extended release nystatin 100,000 unit/mL oral 5 ml PO QID 7 days #140 mL 05/07/23 05/11/23 Rx suspension Patient History Medical History Weakness of voice Diarrhea Multifocal pneumonia Chronic diastolic heart failure Chronic obstructive pulmonary disease Lower extremity edema BPH (benign prostatic hyperplasia) Hyperlipidemia Lung cancer Abdominal aortic aneurysm s/p repair 2015 Multiple pulmonary nodules determined by computed tomography of lung BPH (benign prostatic hyperplasia) Kidney stones hx PVC (premature ventricular contraction) on occasion Hypertension Diverticulosis Hyperlipemia COPD (chronic obstructive pulmonary disease) well controlled per pt > no res inh use Surgical History History of aortic aneurysm repair endovascular > [facility] [place] > 2016 > follows with [facility] cardiology. Has to go for scan on 02/06/23 to check for "leak around the stent" as evidence of size increase per recent ultrasound [facility]. History of cataract surgery bilat History of tooth extraction dental implants History of lithotripsy History of inguinal hernia repair left x 1, right x 2. H/O colonoscopy 07/2020 repeat 5 years Family History Father Colon cancer Colorectal cancer Family/Other Heart disease Hypertension Mother Stroke Denies family history of Ovarian cancer Prostate cancer Myocardial infarction Breast cancer Social History Smoking Status: Former smoker Tobacco Type: Cigarettes Age Started Using Tobacco: 32; packs per day: 0.5; Cigarettes Per Day: 10 cigs per day; Second Hand Exposure: No; Do You Dip or Chew Tobacco: No; Hx Alcohol Use: No Hx Substance Use: No Preferred Language: Malay Communication Ability: Effective Visual Impairment: Limited Hearing Ability: Normal Life Assurance Representative Required: No Beliefs That Will Affect Care: None marital status: Current Living Situation: Spouse Current Living Situation Comment: lives with current 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 How many Children do You have: 1 Feels Safe at Home: Yes Childhood Exposure to Second-Hand Smoke: No caffeine: Yes Dental Care, Regularly: Yes Physical Activity Frequency: Does not Exercise Seatbelt Use: always Sunscreen Use: Yes Assistive Devices: None Results & Data Vital Signs (Past 12 Hours) Vital Signs Temp Pulse Pulse Resp BP Pulse Ox O2 Del Method 05/26/23 10:52 36.6 C 78 19 104/67 100 Nasal Cannula 05/26/23 08:11 Nasal Cannula 05/26/23 08:00 79 05/26/23 07:07 36.5 C 72 17 115/69 89 L Oxymask 05/26/23 02:57 36.9 C 74 20 112/67 91 Oxymask O2 Flow Rate 05/26/23 10:52 4 05/26/23 08:11 3 05/26/23 08:00 05/26/23 07:07 3 05/26/23 02:57 3 PG Care Time/CCT Total # of Minutes Spent Total Time Spent with Patient: Total time spent is greater than 50% in coordination of care (as documented) at patient's floor/unit and/or counseling patient: Coding Level of Care Code 97237 INT INP/OBS CARE 2/55MIN Diagnoses Leukocytosis D72.829 Mucositis K12.30 Bilateral pneumonia J15.1 Lung location: unspecified part of lung Pneumonia type: due to Pseudomonas Blood in mouth of unknown source K13.79 Recurrent oral ulcers K13.79 (3) Bilateral pneumonia Lung location: unspecified part of lung Pneumonia type: due to Pseudomonas Qualified Code(s): J15.1 - Pneumonia due to Pseudomonas
[2023-05-27 13:28] LABS: HSV Type 1 DNA Not Detected (Not Detected); HSV Type 2 DNA Not Detected (Not Detected)
--- NOTE | 2023-05-27 19:13 | Discharge Summary ---
Date of Service May 27, 2023 Admission HPI Per Admitting Provider 78yo male with history of adenocarcinoma of the left lung, COPD, chronic hypoxic respiratory failure on home O2 (3L at rest, 6L with activity), recent prolonged hospitalization at [facility] from 04/20 to 05/04 for severe pancytopenia/pseudomonas bacteremia/presumed pseudomonas pneumonia/septic shock/new-onset a.fib & cardiomyopathy, along with AAA repair in 2016 presents from home with his due to new onset bleeding from his mouth. This started about midnight last night and continued all night into this morning. The blood was coming from his mouth and was bright red in color. His reports there were clots as well and she seemed to "be pulling them out of his throat." No epistaxis anteriorly. Question of some hemoptysis as well. He denies feeling dyspneic, but he told the ER staff upon arrival that he indeed was short of breath. Since discharge on 05/04 his appetite has been poor, he has been sedentary, and he possibly had a low-grade fever of about 100 degrees yesterday afternoon. Despite compliance with lasix he has continued to have LE edema bilaterally. Last dose of Eliquis was yesterday in the evening. He completed his IV cefepime (was sent home from the hospital on such) on , 05/07/23. While evaluating him he states "I think the bleeding stopped." The ER attending had previously given him 2 TXA neb treatments along with a duoneb and 1 dose of IV zosyn. Principal Diagnosis Acute blood loss anemia due to severe oropharyngeal bleeding, Acute hypoxic respiratory failure, Pseudomonas pneumonia Discharge Exam PHYSICAL EXAMINATION Last 24h vital signs reviewed, see documentation in flowsheet General: sitting in chair exam unchanged 05/26 HEENT: Normocephalic, atraumatic, pupils round and equal, sclerae anicteric, no conjunctival injection, moist mucus membranes. hoarseness improved. shallow large ulcer on roof of mouth clean based very slight amount of blood Lungs: Normal respiratory effort. Prolonged expiratory phase. crackles in both bases, diminished L base, no wheezing - unchanged. Heart: Regular rate and rhythm, no murmurs. No JVD Abdomen: nondistended. Extremities: Warm, dry, well-perfused. 1-2+ extremity edema to mid chatman Neuro: Alert and oriented x 4, face symmetric, moves 4 extremities well Psych: Normal affect and behavior Discharge Data Allergies Allergy/AdvReac Type Severity Reaction Status Date / Time JUAN R Inhibitors AdvReac Intermediate hyperkalemi Verified 05/11/23 09:37 a Consultations 05/11/23 09:28 ED Decision to Admit Stat 05/11/23 12:58 Consult Cnc Manager Routine 05/11/23 13:09 Consult Infectious Diseases Routine 05/21/23 15:32 Consult Otolaryngology (Head and Neck) Routine 05/25/23 14:57 Consult Oromaxillofacial Surgery Routine Consult Vascular Surgery Routine Ordered Studies 05/11/23 05:28 CT for pulmonary embolism PE [CT angio chest PE protocol] Stat 05/17/23 00:31 CTA chest wo/w con [CT angio chest wo/w con] Stat 05/17/23 00:35 US venous doppler LE BI Stat 05/25/23 09:56 US venous doppler LE LT Urgent Chest X-Ray 05/11/23 05:23 XR chest 1V portable CLINICAL HISTORY: Dyspnea. COMPARISON STUDY: Chest radiograph May 02, 2023. Chest CT April 21, 2023. FINDINGS: There is no pneumothorax or pleural effusion. Bibasilar airspace opacities persist. There is underlying emphysema. No evidence for pulmonary edema. Cardiomediastinal silhouette is stable. IMPRESSION: 1. Persistent bibasilar opacities suggestive of pneumonia. Radiographic follow- up to ensure resolution is recommended. 2. No pneumothorax. ACT 112: Negative or not required by law. Electronically signed by: Ascencion Hodge M.D. 05/11/2023 6:53 AM Chest CTA 05/11/23 05:28 CT angio chest PE protocol CT DOSE: 656.35 mGy.cm HISTORY: 78 years-old Male with PE. Acute shortness of breath with history of lung cancer TECHNIQUE: Multiple CTA images of the chest were obtained after the intravenous administration of 112 ml Optiray. Coronal and sagittal MIPS were obtained from the axial data set and were submitted for review. All measurements were obtained according to NASCET criteria. A dose lowering technique was utilized adhering to the principles of ALARA. COMPARISON: Radiation chest CT 05/08/2023, CT chest 04/21/2023, 01/31/2023, PET CT 01/15/2023. FINDINGS: CTA: The heart is mildly enlarged. No pericardial effusion. Moderate coronary artery calcifications. Atherosclerosis of the thoracic aorta without aneurysm or dissection. Suboptimal evaluation of the pulmonary arterial tree secondary to respiratory motion artifact. No central pulmonary emboli are identified. CT CHEST: No dominant thyroid nodule. Borderline enlarged 10 mm subcarinal lymph node has decreased in size from prior. 11 mm precarinal lymph node on image 127 previously measured 1.5 cm. No new or progressive lymphadenopathy. There is no pneumothorax, pleural effusion or overt pulmonary edema. There is severe pulmonary emphysema. Patchy bibasilar groundglass and consolidative opacities redemonstrated. Several the previously seen nodular foci of consolidation have improved. One of the areas of consolidation however within the left lower lobe subpleural distribution on image 109 series 4 now demonstrates central cavitation and overall measures 6.3 x 4.0 x 3.7 cm. Central airways are generally patent. Left upper lobe nodules are redemonstrated, better seen on the prior PET/CT. Nonobstructing right renal calculi. Hyperdense lesion of the superior pole right kidney may represent a proteinaceous or hemorrhagic cyst. Bilateral renal cysts. Unremarkable soft tissues. No acute fracture or destructive bone lesion. IMPRESSION: 1. No pulmonary emboli identified. 2. Severe emphysema with patchy bilateral airspace opacities redemonstrated within a bibasilar prominent distribution suggestive of multifocal pneumonia. Interval development of a focus of cavitary pneumonia within the left lower lobe measuring up to 6.3 cm. Close follow-up is needed. 3. No pleural effusion or pneumothorax. 4. Decreased size of the mediastinal lymphadenopathy compared to the 04/21/2023 exam. 5. Redemonstration of suspicious pulmonary nodules of the left lower lobe, previously described on the PET/CT from 01/15/2023. 6. Right nephrolithiasis. ACT 112: Negative or not required by law. The above report was generated using voice recognition software. It may contain grammatical, syntax or spelling errors. Electronically signed by: Tacho Carlin M.D. 05/11/2023 7:49 AM Chest X-Ray 05/17/23 00:08 XR chest 1V portable CLINICAL HISTORY: hypoxia TECHNIQUE: Single frontal radiograph of the chest was obtained. Comparison: Comparison is made to chest radiograph 05/11/2023 FINDINGS: No lines and tubes are seen. The cardiomediastinal silhouette is obscured. Bilateral lower lung predominant airspace opacities are seen. No evidence of pleural effusion or pneumothorax. IMPRESSION: Bilateral lower lung predominant airspace opacities which may represent atelectasis, pneumonia, and/or aspiration. This is stable to minimally enlarged from prior exam. ACT 112: Negative or not required by law. Electronically signed by: Reese Garrison M.D. 05/17/2023 8:39 AM Chest CTA 05/17/23 00:31 Exam(s): CTA CHEST W/WO Contrast IV Amt: 119 cc's of optiray 320 EXAM: CT Angiography Chest Without and With Intravenous Contrast CLINICAL HISTORY: Reason for exam: acute hypoxia. TECHNIQUE: Axial computed tomographic angiography images of the chest without and with intravenous contrast. CTDI is 16.49 mGy and DLP is 565.42 mGy-cm. Automated exposure control was utilized for the study. A dose lowering technique was utilized adhering to the principles of ALARA. MIP reconstructed images were created and reviewed. CONTRAST: Patient received 119 cc's of optiray 320 of IV contrast COMPARISON: No relevant prior studies available. FINDINGS: Pulmonary arteries: Motion artifact limits evaluation. Despite this, no evidence of pulmonary emboli within the outflow tract or proximal branches. Aorta: Atherosclerotic disease. No thoracic aortic aneurysm. Lungs: Prominent areas of dependent consolidation within the lungs with additional nondependent areas of airspace disease. Findings likely relate to infection/aspiration changes. Consider follow-up imaging to ensure resolution. Severe upper lobe predominant centrilobular emphysema. Pleural space: Small bilateral pleural effusions which may relate to volume overload. No pneumothorax. Heart: Coronary artery calcifications. No cardiomegaly. No significant pericardial effusion. No evidence of RV dysfunction. Bones/joints: Degenerative changes in the spine. No acute fracture. No dislocation. Soft tissues: Unremarkable. Lymph nodes: Unremarkable. No enlarged lymph nodes. Kidneys and ureters: Simple bilateral renal cysts. No follow-up of these simple cysts is necessary. Calculi within the right kidney which may relate to nonobstructive calculi. Vascular calcifications are also possible. IMPRESSION: 1. Motion artifact limits evaluation. Despite this, no evidence of pulmonary emboli within the outflow tract or proximal branches. 2. Prominent areas of dependent consolidation within the lungs with additional nondependent areas of airspace disease. Findings likely relate to infection/aspiration changes. Consider follow-up imaging to ensure resolution. 3. Severe upper lobe predominant centrilobular emphysema. 4. Other incidental findings as described. Electronically signed by: Indio Garrett MD 05/17/23 04:08 AM Venous Doppler Study 05/17/23 00:35 Exam(s): US VENOUS BILATERAL LOWER EXTREMITIES EXAM: US Duplex Bilateral Lower Extremities Veins CLINICAL HISTORY: Reason for exam: LE swelling, hypoxia, r/o DVT. TECHNIQUE: Real-time duplex ultrasound scan of the bilateral lower extremity veins integrating B-mode two-dimensional vascular structure, Doppler spectral analysis, color flow Doppler imaging and compression. COMPARISON: No relevant prior studies available. FINDINGS: Right deep veins: Unremarkable. No DVT in the right common femoral, femoral, proximal deep femoral or popliteal veins. The veins demonstrate normal color flow, are normally compressible, with normal phasic flow and/or augmentation response. Right superficial veins: Unremarkable. No thrombus in the visualized right great saphenous vein. Left deep veins: Nonocclusive thrombus noted within the left common femoral vein, left greater saphenous vein, and left superficial femoral vein. Otherwise no evidence of thrombus within the visualized left lower extremity. Left superficial veins: See above. Soft tissues: No acute findings. No popliteal cyst. IMPRESSION: Nonocclusive thrombus noted within the left common femoral vein, left greater saphenous vein, and left superficial femoral vein. Otherwise no evidence of thrombus within the visualized left lower extremity. Electronically signed by: Indio Garrett MD 05/17/23 05:20 AM Chest X-Ray 05/22/23 16:45 XR chest 2V PA/lateral CLINICAL HISTORY: pseudomonas pneumonia, worsening dyspnea TECHNIQUE: 2 views of the chest were obtained. Comparison: Comparison is made to chest radiograph 05/17/2023 FINDINGS: No lines and tubes are seen. The cardiomediastinal silhouette is normal. Bilateral lower lung airspace opacities are slightly more prominent than in the prior exam. No evidence of pleural effusion or pneumothorax. IMPRESSION: Stable to slightly increased prominence of the bilateral airspace opacities concerning for pneumonia. ACT 112: Negative or not required by law. Electronically signed by: Reese Garrsion M.D. 05/22/2023 7:22 PM Venous Doppler Study 05/25/23 09:56 LEFT LOWER EXTREMITY VENOUS DOPPLER CLINICAL HISTORY: recent LLE DVT, interval change COMPARISON STUDY: Bilateral lower extremity venous Doppler ultrasound May 17, 2023. TECHNIQUE: Sonography of the deep venous system of the left lower extremity was performed. Compression and augmentation were evaluated. FINDINGS: The venous thrombus within the left common femoral and greater saphenous veins on ultrasound of May 17, 2023 has nearly completely resolved. There is mild residual wall thickening within the left common femoral vein. Nonocclusive deep venous thrombus within the left peroneal vein was not identified on prior exam. IMPRESSION: 1. Deep venous thrombus within the left peroneal vein, not evident on ultrasound May 17, 2023. 2. Near complete resolution of thrombus within left common femoral and greater saphenous veins shown on prior ultrasound. ACT 112: Negative or not required by law. Electronically signed by: Ascencion Hodge M.D. 05/25/2023 12:07 PM 05/26/23 07:32 05/26/23 07:32 Hospital Course (1) Blood in mouth of unknown source: at time of admission he presented with severe bleeding from the mouth it was unclear if the blood was from the nasopharynx, the hard palate ulceration, or the lungs Eliquis was stopped upon admission due to the above bleeding incident. Treated with TXA. Required blood transfusion. ultimately underwent bronchoscopy -- no source of bleeding was found in the lungs had recurrent bleeding episodes throughout the hospital stay and could not tolerate anticoagulation heparin drip was stopped Dr Kaushik Whitaker from ENT performed laryngoscopy 05/21/23 mild blood in both nares near the anterior nasal septum only; no large area of bleeding found; larynx showed mildly irritated vocal cords but no lesions or areas of blood in the glottis since ENT saw patient bactroban BID to both nares along with saline spray was used to heel and moisten the nares Dr. Raffaele Rae [facility] consulted for large persistent ulcer on hard palate. Treated with topical steroid, peridex, saline swishes and nystatin. Did improve somewhat but silver nitrate used for cautery 05/24, 05/[address] Rae. Had increased bleeding even after prophylaxis dose of enoxaparin 40 mg on 05/25. Overall seems likely the severe bleeding was from oral ulcer or posterior nosebleed rather than true hemoptysis from lungs. (2) Left leg DVT: dx 05/17/23 - common femoral, superficial femoral, and greater saphenous vein - left leg attempts at resuming anticoagulation in the form of heparin drip - even with low-dose protocol - caused increased oral cavity bleeding from the mucosal ulcer in mouth and/or the nose 05/24 repeat LE duplex - near complete resolution of thrombus within L common femoral and saphenous vein, mild residual wall thickening in L CF vein. DVT L peroneal vein reported to be new Consulted Dr. Manuel, vascular surgery. 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 Roque 05/26 - she will have him scheduled in office soon, may be able to start prophylaxis dose apixaban within 1-3 weeks (3) Acute and chronic respiratory failure with hypoxia: acute - 2nd to pseudomonas pneumonia remains on IV cefepime extensive w/u including CTA chest x 2, bronchoscopy 05/14/23, numerous labs & cultures, etc have failed to identify another pathogen besides pseudomonas cocci, histo, aspergillus, and PJP testing returned from [facility] lab - all negative AFB culture, fungal culture - remain negative from bronch chronic resp failure - 2nd to COPD, lung ca, etc after most recent discharge was on home 3L NC O2 at rest, 6L NC O2 with activity. Currently 2L at rest and 4L with activity reporting cough with drinking fluids - appreciate speech therapy consult - no change in diet at this time advised improved (4) Cavitary lesion of lun.3cm, LLL s/p bronch by Dr Khan on 05/14/23 brushings/cytologies negative for malignancy Quantiferon gold test negative AFB/fungal cultures from bronch negative only + culture showed pseudomonas see above will need pulmonary follow-up for his extensive pneumonia and complex pulmonary issues repeat chest CT in 6-8 weeks recommended by tanbark peeler (5) Multifocal pneumonia: had such during his prior hospitalization in 04/2023 complicated by chemo-induced pancytopenia and septic shock evidence of ongoing b/l pneumonia at time of this admission (despite previous 14-day course of IV cefepime for presumed pseudomonas) was on cefepime; changed to IV zosyn for 2+ days after suffering acute respiratory decompensation (possibly due to mucous plugging as CTA chest was largely unchanged from prior CT) Seen by [facility] ID telemedicine consult this admission IV cefepime through 06/07, placed US guided PIV, discussed with care coordination - home infusion set up ID follow up recommended - made outpatient referral (6) Acute blood loss anemia: caused by oropharyngeal bleeding s/p 1 unit PRBCs on hospital day #1, stable thereafter (7) Chronic systolic CHF (congestive heart failure): echo 04/2023 - EF 45-50% will follow with [facility] CHF clinic in the future after discharge continues with minor LE edema in his feet/ankles only - probably more so due to low albumin rather than CHF itself -resume oral lasix -elevate LE -discussed nutrition (8) PAF (paroxysmal atrial fibrillation): diagnosed with such in the ICU during prior hospitalization needed IV amiodarone during that stay with conversion to NSR placed on PO Eliquis + amiodarone Eliquis has been on hold since beginning of this admission due to the oral bleeding he presented with, did not tolerate resumption of anticoagulation thus far despite multiple attempts cont amiodarone to maintain NSR - 200mg daily see above regarding resumption of apixaban in future (9) Abnormal LFTs: seen during the prior hospitalization lfts have normalized ok to cont amiodarone, statin, etc low albumin slowly improving - patient drinking protein drink at least once daily and one protein bar (10) Adenocarcinoma of left lung, stage 3: dx 01/2023 stage 3a s/p radiation along with chemotherapy last chemo - 04/20/23 - carboplatin/paclitaxel follows with Dr Roque[facility] - discussed (11) History of abdominal aortic aneurysm repair: 2016 (12) Chronic obstructive pulmonary disease: with resulting chronic hypoxic resp failure on home O2 prior heavy tobacco dependence cont home inhalers no exacerbation at this time (13) Vocal cord nodule: seen during bronchoscopy earlier in the hospitalization - treated with nystatin for presumed candidiasis direct laryngoscopy by Dr Whitaker on 05/20, however, saw vocal cord erythema but no nodules -voice improving (14) Mucositis: severe ongoing present since April unusual in that it is taking so long to heal patient has h/o HSV fever lip blisters HSV DNA swab from the ulcer base - negative for HSV 1 & 2 cont: kenalog orabase TID to the ulceration peridex mouthwash BID Dr. Rae consulted, silver nitrate cautery x 2, recommended he follow up with Dr. Rae and his dentist for splint (15) Leukocytosis: downtrending, most likely related to ongoing pulmonary inflammation - improved to 11 Plan home with home health / home infusion Total Time Total Time Spent Total Time Spent (In Minutes): I personally spent: 65 minutes today on clinical care activities including: reviewing chart notes and vital signs reviewing labs reviewing micro discussion with oncologist discussion with rn intensive care unit examining and counseling the patient writing orders, DC instructions, arranging follow up documentation Discharge Plan Discharge Items Patient Disposition: Home - Home Health Services Reason For Visit: LEFT LUNG CAVITARY LESION, HEMOPTYSIS, POSSIBLE SE Discharge Diagnosis: pseudomonas pneumonia, recurrent bleeding likely from oral ulcer Activity: Resume your previous activity Non-emergency contact: Primary Care Provider and Oncologist Call non-emergency contact if: you have any medication questions, your symptoms worsen and you have a fever Follow-up/Referrals: Fernando Khan MD [Physician] - Efrem Estevez DO [Primary Care Provider] - 06/04/23 11:30 am Raffaele Rae DMD [Physician] - Jaqueline Roque MD [Physician] - Diet: Regular Addtl Attending Provider Instructions: Continue cefepime total of four weeks for pseudomonas pneumonia (end date 06/07) -please schedule follow up with Dr. Khan in 4-6 weeks -we are working on a referral to infectious disease specialist for follow up as well Oral ulcer, recurrent bleeding -continue Peridex and kenalog paste - apply to the large ulcer -Dr. Rae recommended you schedule follow up with him -also schedule follow up with your dentist Dr. Rose Angel with Dr. Roque and Dr. Rice -talk to Dr. Roque about when/if to resume Eliquis Keep taking protein shake/bar ideally twice a day Your amiodarone is decreased to ONCE a day because you've completed your loading dose phase You may resume baby aspirin daily once mouth bleeding has stopped Pending Studies at Discharge: Yes Studies:: HSV swab of oral ulcer Stand-Alone Forms: My emaze, Smoking Cessation Medications and DC Order Prescriptions: New Saline Mist 0.65 % Aerosol,[place] 2 spray NA Q1H PRN (Reason: dry nasal passages) Qty: 0 0RF Rx Instructions: may buy over the counter chlorhexidine gluconate 0.12 % Mouthwash 15 ml MT BID Qty: 473 0RF triamcinolone acetonide 0.1 % Paste 1 applic MT TID Qty: 5 1RF cefepime 2 gram recon soln 2 g IV Q12H Rx Instructions: home infusion. Stop date 06/07 completes 4 week. Continued prochlorperazine maleate [Compazine] 10 mg tablet 10 mg PO Q8H PRN (Reason: Nausea) atorvastatin [Lipitor] 20 mg tablet 20 mg PO PM 90 Days Qty: 90 3RF Hold Instructions: hold until your outpatient providers tell you it is ok to resume. Trelegy Ellipta 100-62.5-25 mcg blister with device 1 inh inhalation DAILY Qty: 60 2RF ascorbate calcium (vitamin C) 500 mg tablet 500 mg PO QAM vitamin E succinate 400 unit tablet 400 units PO QAM albuterol sulfate 90 mcg/actuation HFA aerosol inhaler 2 inh inhalation QID PRN (Reason: shortness of breath or wheezing) Qty: 8.5 1RF cholecalciferol (vitamin D3) [Vitamin D3] 50 mcg (2,000 unit) Capsule 50 mcg PO QPM ondansetron 8 mg tablet,disintegrating 8 mg PO Q8 PRN (Reason: Nausea And Vomiting) magnesium oxide 400 mg (241.3 mg magnesium) Tablet 400 mg PO QAM Qty: 30 2RF potassium chloride 10 mEq tablet extended release 10 meq PO DAILY Qty: 30 0RF furosemide [Lasix] 20 mg tablet 20 mg PO QAM Qty: 30 1RF (DME) Oxygen Home [id number] Liters Per Minute See Rx Instructions .ROUTE .MEDSUPPLY Qty: 1 0RF Rx Instructions: 3 liters at rest, 6 liters with ambulation/activity Changed amiodarone 200 mg Tablet 200 mg PO DAILY Qty: 30 0RF Held aspirin [Adult Aspirin Regimen] 81 mg tablet,delayed release (DR/EC) 81 mg PO QAM Hold Instructions: Resume on 06/03/23. resume once mouth bleeding resolves Eliquis 5 mg Tablet 5 mg PO BID Qty: 60 0RF Hold Instructions: Resume on 06/24/23. hold until/if Dr. Roque instructs you to resume it Discontinued nystatin 100,000 unit/mL suspension 5 ml PO QID 7 Days Qty: 140 0RF Rx Instructions: swish and spit for 7 days dexamethasone 4 mg tablet 4 mg PO UD Rx Instructions: as directed prior to chemotherapy Discharge Orders: Discharge Order (Routine); Ordered 05/27/23 Ordered By: Yue Chavira/Other Patient Handouts: Taking NSAIDs Safely, What Is Pneumonia?, Preventing Pneumonia, When You Have Pneumonia Admission Data Admit Date/Time: 05/11/23 10:59 Attending Provider: Yue Beltran Admit Provider: Jarod Glynn Primary Care Provider: Efrem Estevez Other Providers: [facility]; Jarod Glynn; Fernando Khan; Mikala Lipscomb; Bessy Laird; Anisha Curtis; Tammie Barton; Chanelle Neal; Thiago Landers; Yue Calle; Julisa Medina; Jimi,Fax; Kaushik Whitaker; Raffaele Rae; Aakash Manuel Other Interventions: Discharge Summary Assessment (RN) Last Done: 05/27/23 12:10 Coding Level of Care Code 76674 INP/OBS DISCH >30 MIN Diagnoses Blood in mouth of unknown source K13.79 Left leg DVT I82.402 Acute and chronic respiratory failure with hypoxia J96.21 Cavitary lesion of lung J98.4 Multifocal pneumonia J18.9 Acute blood loss anemia D62 Chronic systolic CHF (congestive heart failure) I50.22 PAF (paroxysmal atrial fibrillation) I48.0 Abnormal LFTs R79.89 Adenocarcinoma of left lung, stage 3 C34.92 History of abdominal aortic aneurysm repair Z98.890 Centrilobular emphysema J43.2 COPD type: emphysema Emphysema type: centrilobular 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
== END 2023-05-27 15:59 | disposition home health service (06) | DRG 177 ==
LOC: ED 05:19 → SUATTDRO 10:59 → 1E 10:59 → 3E 05-16 14:17 → 1E 05-17 00:30 → 2E 05-17 23:07

== ENCOUNTER 2023-05-29 16:15 | Inpatient (IN) ==
--- NOTE | 2023-05-29 16:27 | ED Triage Note ---
Date of Service May 29, 2023 Provider in Triage Author: Alicia Levin History of Present Illness This patient was briefly evaluated while in triage. An abbreviated physical exam was performed. This patient is a 78-year-old Male who presents to the ED for evaluation of shortness of breath. Pt. admitted to the hospital 2 weeks ago. Was admitted for "bleeding" then was diagnosed with pneumonia. Does have history of lung cancer. Also has history of atrial fibrillation. Blood thinners were d/c after admission due to bleeding ulcer in the mouth requiring blood transfusion. Physical Exam VITALS: Vitals are noted on the nurse's note and reviewed by myself. GENERAL: This is a 78 year old male, in no acute distress, nondiaphoretic, well- developed well-nourished. SKIN: No obvious rashes, edema, erythema HEAD: Normocephalic atraumatic. EYES: Conjunctivae without injection, sclerae without icterus. NECK: No JVD. LUNGS: No retractions or accessory muscle use. MUSCULOSKELETAL: Normal gait. NEURO: Patient was alert and oriented to person place and time. No focal neurological deficits. Initial orders for labs and / or imaging were placed and patient was placed in the waiting area until a bed is available. Please see further documentation for the full ED course. MDM / Impression Impression Impression: DVT (deep venous thrombosis), Hypoxia, ABHISHEK (acute kidney injury), Chest pain Impression: DVT (deep venous thrombosis) Qualifiers: DVT location: lower extremity Affected thrombotic vein of extremity: popliteal Chronicity: acute Laterality: right Qualified Code(s): I82.431 - Acute embolism and thrombosis of right popliteal vein Chest pain Qualifiers: Chest pain type: unspecified Qualified Code(s): R07.9 - Chest pain, unspecified
--- NOTE | 2023-05-29 16:49 | Emergency Department Note ---
Impression & Plan DVT (deep venous thrombosis), Hypoxia, ABHISHEK (acute kidney injury), Chest pain ED Provider Note NAME: COLT BRAVO AGE: 78 SEX: M : 1945 ARRIVES VIA: Walk-In INFORMANT: Patient, ED PROVIDER(S): Kyler Main DO CHIEF COMPLAINT: Shortness of breath HPI: The patient is a 78-year-old male who presented to the emergency department for an evaluation of shortness of breath. The patient describes right-sided gripping chest pain that began over the last 24 hours. He was recently admitted to our facility. Patient denies having any abdominal pain or vomiting. He describes lower extremity swelling which is not new for him. He does have a history of chronic lower extremity swelling as well as chronic DVT but he is not currently taking any blood thinners. The patient was taking blood thinners but he has an area on his mouth that is ulcerated and sometimes bleeds so he is currently not on any oral anticoagulation. Patient did not see his family doctor today. He came right to the emergency department symptoms started to worsen this evening. ROS: See above HPI for pertinent positives & negatives. A total of 10 systems reviewed and were otherwise negative. PAST MEDICAL HISTORY: See Below PAST SURGICAL HISTORY: See Below FAMILY HISTORY: See Below SOCIAL HISTORY: See Below HOME MEDICATIONS: See Below ALLERGIES: See Below VITALS: See Below PHYSICAL EXAMINATION: GENERAL: Patient is awake alert in no acute distress patient is resting comfortably and showing no signs of anxiety EYES: The conjunctivae are clear. The pupils are round and reactive. EARS, NOSE, MOUTH AND THROAT: The nose is without any evidence of any deformity. Mucous membranes are moist. There is an ulceration noted on the roof of the mouth. No active bleeding was noted. NECK: The neck is nontender and supple. RESPIRATORY: Splinting respirations were noted. There were diminished breath sounds with rales throughout. CARDIOVASCULAR: Regular rate and rhythm noted there no murmurs rubs or gallops normal S1 normal S2. GASTROINTESTINAL: The abdomen is soft. Abdomen is nontender. MUSCULOSKELETAL/EXTREMITIES: There is no evidence of gross deformity full range of motion is noted in the hips and shoulders. SKIN: Skin is warm and dry. Pedal edema was noted bilaterally. NEUROLOGIC: Patient is awake alert and oriented x3. MEDICAL DECISION MAKING: The patient is a 78-year-old male who presented to the emergency department for chest pain. The patient describes pleuritic right-sided chest pain. The patient was recently admitted to our facility. He has a history of chronic venous thromboembolic disease but his anticoagulation was stopped because he has a bleeding ulcer in his mouth. The patient did complain of lower extremity swelling but no worse than previous. The patient required escalating amounts of oxygen but he does take oxygen chronically. He was found to have an acute elevation in his creatinine compared to baseline. The patient was also found to have acute DVT on ultrasound. I discussed the patient's laboratory and radiographic studies with him. He was started on IV heparin in the emergency department. I discussed his condition with the on-call [facility] hospitalist. They have agreed to evaluate the patient in the emergency department for further management and disposition. CT was initially ordered but could not be done because the patient's creatinine. I do feel it is likely the patient does have PE as well. Triage Nursing notes reviewed. Prior medical records reviewed Vital Signs: reviewed and remarkable for hypoxia. Differential diagnosis: Cardiac ischemia, aortic dissection, pulmonary embolism, pneumothorax, pneumonia, pericarditis, myocarditis, esophageal rupture, GERD, cholecystitis, pancreatitis, musculoskeletal, as well as other pathologies. ER treatment provided: See below Diagnostics interpreted by me: ECG: EKG was obtained in the emergency department. My interpretation is sinus tachycardia at 104 bpm. Incomplete right bundle branch block pattern was noted. There were no PVCs. This was compared to a tracing from May 11, 2023. No changes were noted. Cardiac Monitoring: An order was placed for continuous cardiac monitoring. The monitor shows a rate of 79 bpm with sinus rhythm. Laboratory studies: As stated above and show below. Imaging studies: See below. Radiographic imaging was reviewed by myself Consultation(s): I discussed this case with Dr. Benitez [facility] ED COURSE: Procedures: none Critical Care: I have personally spent greater than 45 minutes of critical care time in the direct management of this patient. This includes bedside care, interpretation of diagnostic studies, and testing, discussion with consultants, patient, and family members, and other required patient management activities. This 45 minutes is in excess of all separately billable procedures. Past Med/Surg History Medical History Weakness of voice Diarrhea Multifocal pneumonia Chronic diastolic heart failure Chronic obstructive pulmonary disease Lower extremity edema BPH (benign prostatic hyperplasia) Hyperlipidemia Lung cancer Abdominal aortic aneurysm s/p repair 2016 Multiple pulmonary nodules determined by computed tomography of lung BPH (benign prostatic hyperplasia) Kidney stones hx PVC (premature ventricular contraction) on occasion Hypertension Diverticulosis Hyperlipemia COPD (chronic obstructive pulmonary disease) well controlled per pt > no res inh use Surgical History History of aortic aneurysm repair endovascular > [facility] [place] > 2016 > follows with [facility] cardiology. Has to go for scan on 02/06/23 to check for "leak around the stent" as evidence of size increase per recent ultrasound formerly [facility]. History of cataract surgery bilat History of tooth extraction dental implants History of lithotripsy History of inguinal hernia repair left x 1, right x 2. H/O colonoscopy 07/2020 repeat 5 years Family History Father Colon cancer Colorectal cancer Family/Other Heart disease Hypertension Mother Stroke Denies family history of Ovarian cancer Prostate cancer Myocardial infarction Breast cancer Social History Smoking Status: Former smoker Tobacco Type: Cigarettes Age Started Using Tobacco: 32; packs per day: 0.5; Cigarettes Per Day: 10 cigs per day; Second Hand Exposure: No; Do You Dip or Chew Tobacco: No; Hx Alcohol Use: No Hx Substance Use: No Preferred Language: Latvian Communication Ability: Effective Visual Impairment: Limited Hearing Ability: Normal Polysomnographic Technologist Required: No Beliefs That Will Affect Care: None marital status: Current Living Situation: Spouse Current Living Situation Comment: lives with current occupational status: 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 [employer] How many Children do You have: 1 Feels Safe at Home: Yes Childhood Exposure to Second-Hand Smoke: No caffeine: Yes Dental Care, Regularly: Yes Physical Activity Frequency: Does not Exercise Seatbelt Use: always Sunscreen Use: Yes Assistive Devices: None Allergies Allergies Allergy/AdvReac Type Severity Reaction Status Date / Time JUAN R Inhibitors AdvReac Intermediate hyperkalemi Verified 05/29/23 17:22 a Home Meds Home Medications Medication Instructions Recorded Confirmed ascorbate calcium (vitamin C) 500 500 mg PO QAM 09/23/18 05/29/23 mg tablet aspirin 81 mg tablet,delayed 81 mg PO QAM 09/23/18 05/29/23 release (Adult Aspirin Regimen) vitamin E succinate 268 mg (400 400 units PO QAM 11/30/18 05/29/23 unit) tablet cholecalciferol (vitamin D3) 50 50 mcg PO QPM 01/20/23 05/29/23 mcg (2,000 unit) capsule (Vitamin D3) prochlorperazine maleate 10 mg 10 mg PO Q8H PRN Nausea 03/18/23 05/29/23 tablet (Compazine) ondansetron 8 mg disintegrating 8 mg PO Q8 PRN Nausea And Vomiting 04/21/23 05/29/23 tablet amiodarone 200 mg tablet 200 mg PO DAILY 05/28/23 05/29/23 valacyclovir 1 gram tablet 1,000 mg PO TID 05/29/23 05/29/23 Previous Rx's Medication Instructions Recorded atorvastatin 20 mg tablet (Lipitor) 20 mg PO PM 90 days #90 tabs 06/24/22 fluticasone fur. 100 mcg-umeclid 1 inh inhalation DAILY #60 ea 03/31/23 62.5 mcg-vilant 25 mcg inhalat.powder (Trelegy Ellipta) apixaban 5 mg tablet (Eliquis) 5 mg PO BID #60 tabs 05/01/23 Oxygen Home E0424 #1 L 05/05/23 furosemide 20 mg tablet (Lasix) 20 mg PO QAM #30 tabs 05/05/23 magnesium oxide 400 mg (241.3 mg 400 mg PO QAM #30 tabs 05/05/23 magnesium) tablet cefepime 2 gram solution for 2 g IV Q12H pseudomonas pneumonia 05/27/23 injection chlorhexidine gluconate 0.12 % 15 ml MT BID mouth ulcer #473 mL 05/27/23 mouthwash sodium chloride 0.65 % nasal spray 2 spray NA Q1H PRN dry nasal 05/27/23 aerosol (Saline Mist) passages #0 mL triamcinolone acetonide 0.1 % 1 applic MT TID mouth ulcer #5 05/27/23 dental paste grams albuterol sulfate 90 mcg/actuation 2 inh inhalation QID PRN shortness 05/28/23 aerosol inhaler of breath or wheezing #8.5 grams potassium chloride 10 mEq 10 meq PO DAILY #30 tabs 05/28/23 tablet,extended release Results & Data (ED) Vital Signs Vital Signs - 24 hr 05/29/23 16:26 05/29/23 16:58 05/29/23 17:00 Temperature 36.4 C L Temperature Source Temporal Artery Scan Pulse Rate 111 H 90 88 Pulse Rate from SpO2 Sensor 89 Respiratory Rate 24 22 Respiratory Effort / Characteristics Spontaneous Short of Breath Blood Pressure 98/61 L Blood Pressure Mean 73 Pulse Oximetry 93 94 Oxygen Delivery Method Nasal Cannula Oxygen Flow Rate 6 Sepsis Recent Fever Within 48 Hours No Sepsis New/Unexplained Change in Mental Status N/A Sepsis Action Taken by Nursing No Action Required 05/29/23 17:00 05/29/23 17:01 05/29/23 17:01 Temperature Temperature Source Pulse Rate 90 90 Pulse Rate from SpO2 Sensor 90 90 Respiratory Rate 20 21 Respiratory Effort / Characteristics Blood Pressure 113/71 Blood Pressure Mean 80 Pulse Oximetry 92 Oxygen Delivery Method Oxygen Flow Rate Sepsis Recent Fever Within 48 Hours Sepsis New/Unexplained Change in Mental Status Sepsis Action Taken by Nursing 05/29/23 17:10 05/29/23 17:13 05/29/23 17:13 Temperature Temperature Source Pulse Rate 85 Pulse Rate from SpO2 Sensor 85 Respiratory Rate 20 Respiratory Effort / Characteristics Blood Pressure Blood Pressure Mean Pulse Oximetry 98 97 96 Oxygen Delivery Method Nasal Cannula Nasal Cannula Oxygen Flow Rate 6 Sepsis Recent Fever Within 48 Hours Sepsis New/Unexplained Change in Mental Status Sepsis Action Taken by Nursing 05/29/23 18:30 05/29/23 20:58 Temperature Temperature Source Pulse Rate 80 79 Pulse Rate from SpO2 Sensor Respiratory Rate 22 Respiratory Effort / Characteristics Blood Pressure 108/66 Blood Pressure Mean 80 Pulse Oximetry 99 Oxygen Delivery Method Nasal Cannula Oxygen Flow Rate 6 Sepsis Recent Fever Within 48 Hours Sepsis New/Unexplained Change in Mental Status Sepsis Action Taken by [facility] Medications Current Medication List: was personally reviewed by me Laboratory Data Attestation: I reviewed the patient's lab results. 05/29/23 16:45 05/29/23 16:45 Lab Results 05/29/23 05/29/23 05/29/23 Range/Units 16:40 16:45 19:43 WBC 17.30 H (4.8-10.8) K/ul RBC 3.06 L (4.70-6.10) M/uL Hgb 9.4 L (14.0-18.0) g/dl Hct 29.8 L (42.0-52.0) % MCV 97.4 (80.0-100.0) fL MCH 30.7 (25.0-34.0) pg MCHC 31.5 L (32.0-36.0) g/dL RDW Std Deviation 61.1 H (36.4-46.3) fL RDW Coeff of Fany 17.3 H (11.5-14.5) % Plt Count 265 (130-400) K/uL MPV 10.4 (9.4-12.4) fL Immature Gran % (Auto) 4.6 % Neut % (Auto) 71.7 % Lymph % (Auto) 10.8 % [place] % (Auto) 11.4 % Eos % (Auto) 0.8 % Baso % (Auto) 0.7 % Neut # (Auto) 12.40 H (1.40-6.50) K/uL Lymph # (Auto) 1.87 (1.20-3.40) K/uL [place] # (Auto) 1.98 H (0.11-0.59) K/uL Eos # (Auto) 0.13 (0.00-0.50) K/uL Baso # (Auto) 0.12 (0.00-0.20) K/uL Immature Gran # (Auto) 0.80 H (0.01-0.20) K/uL PT 11.8 (9.0-12.0) Seconds INR 1.1 (0.9-1.1) APTT 31 (21-31) Seconds PTT Ratio 1.1 VBG pH 7.32 L (7.36-7.41) VBG pCO2 44 (38-50) mmHg VBG pO2 33 mmHg VBG HCO3 23 mmol/L VBG O2 Saturation < 60.0 % VBG Base Excess -3.5 mEq/L Sodium 132 L (136-145) mmol/L Potassium 5.2 H (3.5-5.1) mmol/L Chloride 102 (98-107) mmol/L Carbon Dioxide 22 (21-32) mmol/L Anion Gap 8 (3-11) BUN 56 H (6-23) mg/dl Creatinine 2.34 H (0.6-1.4) mg/dl Est Cr Clr Drug Dosing Not Reportable Est GFR ( Amer) 30.2 ml/min Est GFR (Non-Af Amer) 26.0 ml/min BUN/Creatinine Ratio 23.9 H (10-20) Glucose 199 H (70-99(Fasting)) mg/dl Calcium 10.5 H (8.6-10.3) mg/dl Total Bilirubin 0.7 (0.2-1.0) mg/dl AST 38 (13-39) U/L ALT 61 H (7-52) U/L Alkaline Phosphatase 74 (34-104) U/L Troponin I High Sens 10.1 (0-20) pg/ml B-Natriuretic Peptide 106 H (0-100) pg/ml Total Protein 8.4 H (6.0-8.3) gm/dl Albumin 3.3 L (3.4-5.0) gm/dl Globulin 5.1 H (2.5-4.0) gm/dl Albumin/Globulin Ratio 0.6 L (0.9-2) Adenovirus (PCR) Not Detected (NotDetected) B. pertussis DNA (PCR) Not Detected (NotDetected) B.parapertussis DNA PCR Not Detected (NotDetected) C. pneumoniae DNA (PCR) Not Detected (NotDetected) Coronavirus OC43 (PCR) Not Detected (NotDetected) Coronavirus HKU1 (PCR) Not Detected (NotDetected) Coronavirus 229E (PCR) Not Detected (NotDetected) SARS-CoV-2 (PCR) Not Detected (NotDetected) Coronavirus NL63 (PCR) Not Detected (NotDetected) Human Metapneumovir PCR Not Detected (NotDetected) Influenza Type A (PCR) Not Detected (NotDetected) Influenza Type B (PCR) Not Detected (NotDetected) M. pneumoniae (PCR) Not Detected (NotDetected) Parainfluenza 1 (PCR) Not Detected (NotDetected) Parainfluenza 2 (PCR) Not Detected (NotDetected) Parainfluenza 3 (PCR) Not Detected (NotDetected) Parainfluenza 4 (PCR) Not Detected (NotDetected) RSV (PCR) Not Detected (NotDetected) Entero/Rhino (PCR) Not Detected (NotDetected) Administered Medications Heparin Sodium/Dextrose (Heparin Sodium/Dextrose) 25,000 units in 500 mls @ 24 mls/hr IV .[id number] KENDAL; Protocol Stop: 06/28/23 20:59 Last Admin: 05/29/23 20:57 Dose: 1,200 units/hr, 24 mls/hr Documented By: SHANA Co-signed By: HJW Discontinued Medications Heparin Sodium (Porcine) (Heparin Sod (Porcine) 1000 Unit/Ml) 1 units IV NOW ONE Stop: 05/29/23 20:52 Last Admin: 05/29/23 20:59 Dose: Not Given Documented By: SHANA Heparin Sodium/Dextrose (Heparin Iv Adult Wt-Based Standard W/ Initial Bolus Protocol) 1 each IV NOW STA; Protocol Stop: 05/29/23 20:36 Last Admin: 05/29/23 21:00 Dose: 1 each Documented By: SHANA Cefepime HCl (Maxipime) 2,000 mg in 20 mls @ 5 mls/min IV NOW STA; Protocol Stop: 05/29/23 17:28 Last Admin: 05/29/23 17:45 Dose: 5 mls/min Documented By: BETSEY Sodium Chloride (Sodium Chloride 0.65% Na Soln 45 Ml ([place])) 2 sprays NA NOW ONE Stop: 05/29/23 20:38 Last Admin: 05/29/23 20:51 Dose: 2 sprays Documented By: SHANA Imaging Data Attestation: I personally reviewed and interpreted this imaging study as follows: My Impression: 1 view chest x-ray was obtained in the emergency department. My interpretation is bibasilar infiltrate, final report below. Radiologist's Impression: Chest X-Ray 05/29/23 18:04 XR chest 1V portable HISTORY: 78 years-old Male CP acute chest pain COMPARISON: 05/22/2023 TECHNIQUE: AP view the chest FINDINGS: Cardiac silhouette is enlarged. Emphysema. No pneumothorax or large pleural effusion. Patchy bibasilar consolidation redemonstrated with slightly improved aeration of the left midlung. Intact. IMPRESSION: 1. Emphysema with persistent bibasilar opacities suggestive of pneumonia. 2. Cardiomegaly. ACT 112: Negative or not required by law. The above report was generated using voice recognition software. It may contain grammatical, syntax or spelling errors. Electronically signed by: Tacho Carlin M.D. 05/29/2023 6:20 PM Venous Doppler Study 05/29/23 18:04 CR Exam(s): US VENOUS BILATERAL LOWER EXTREMITIES EXAM: US Duplex Bilateral Lower Extremities Veins CLINICAL HISTORY: Reason for exam: swelling. TECHNIQUE: Real-time duplex ultrasound scan of the bilateral lower extremity veins integrating B-mode two-dimensional vascular structure, Doppler spectral analysis, color flow Doppler imaging and compression. COMPARISON: May 25, 2023 and May 17, 2023 FINDINGS: Right deep veins: Occlusive thrombus in the right popliteal, peroneal, and posterior tibial veins consistent with DVT. Right superficial veins: There is thrombus in the right small saphenous vein as well. Left deep veins: Probable thrombus in the left peroneal veins. No other DVT is seen on the left. This is unchanged. Left superficial veins: Small amount of superficial thrombus of the left small saphenous vein in the popliteal fossa. Soft tissues: No acute findings. No popliteal cyst. IMPRESSION: 1. Occlusive thrombus in the right popliteal, peroneal, and posterior tibial veins consistent with DVT. This is new. 2. Probable thrombus in the left peroneal veins. No other DVT is seen on the left. This is unchanged. Communications: Call Doctor DVT acute, progressing Electronically signed by: Raúl Byers MD 05/29/23 20:27 PM Discharge Plan Visit Data Chief Complaint: Shortness of Breath/Dyspnea Stated Complaint: SOB/TROUBLE BREATHING ED Provider: Kyler Main Discharge Problem: DVT (deep venous thrombosis), Hypoxia, ABHISHEK (acute kidney injury), Chest pain Patient Disposition: Being Evaluated by Hospitalist Forms Stand Alone Forms: My [facility] [employer] Prescriptions Prescriptions: No Action prochlorperazine maleate [Compazine] 10 mg tablet 10 mg PO Q8H PRN (Reason: Nausea) atorvastatin [Lipitor] 20 mg tablet 20 mg PO PM 90 Days Qty: 90 3RF Hold Instructions: hold until your outpatient providers tell you it is ok to resume. potassium chloride 10 mEq tablet extended release 10 meq PO DAILY Qty: 30 0RF albuterol sulfate 90 mcg/actuation HFA aerosol inhaler 2 inh inhalation QID PRN (Reason: shortness of breath or wheezing) Qty: 8.5 5RF Trelegy Ellipta 100-62.5-25 mcg blister with device 1 inh inhalation DAILY Qty: 60 2RF aspirin [Adult Aspirin Regimen] 81 mg tablet,delayed release (DR/EC) 81 mg PO QAM Hold Instructions: Resume on 06/03/23. resume once mouth bleeding resolves Rx Instructions: ON HOLD ascorbate calcium (vitamin C) 500 mg tablet 500 mg PO QAM vitamin E succinate 400 unit tablet 400 units PO QAM amiodarone 200 mg tablet 200 mg PO DAILY cholecalciferol (vitamin D3) [Vitamin D3] 50 mcg (2,000 unit) Capsule 50 mcg PO QPM Saline Mist 0.65 % Aerosol,[place] 2 spray NA Q1H PRN (Reason: dry nasal passages) Qty: 0 0RF Rx Instructions: may buy over the counter chlorhexidine gluconate 0.12 % Mouthwash 15 ml MT BID Qty: 473 0RF triamcinolone acetonide 0.1 % Paste 1 applic MT TID Qty: 5 1RF cefepime 2 gram recon soln 2 g IV Q12H Rx Instructions: home infusion. Stop date 06/07 completes 4 week. ondansetron 8 mg tablet,disintegrating 8 mg PO Q8 PRN (Reason: Nausea And Vomiting) Eliquis 5 mg Tablet 5 mg PO BID Qty: 60 0RF Hold Instructions: Resume on 06/24/23. hold until/if Dr. Roque instructs you to resume it Rx Instructions: ON HOLD PER NOTE magnesium oxide 400 mg (241.3 mg magnesium) Tablet 400 mg PO QAM Qty: 30 2RF furosemide [Lasix] 20 mg tablet 20 mg PO QAM Qty: 30 1RF (DME) Oxygen Home E0424 Liters Per Minute See Rx Instructions .ROUTE .MEDSUPPLY Qty: 1 0RF Rx Instructions: 3 liters at rest, 6 liters with ambulation/activity valacyclovir 1 gram tablet 1,000 mg PO TID Rx Instructions: STARTED 05/28/23 FOR 7 DAYS Referrals Referrals: Efrem Estevez DO [Primary Care Provider] - Discharge Problem: DVT (deep venous thrombosis) Qualifiers: DVT location: lower extremity Affected thrombotic vein of extremity: popliteal Chronicity: acute Laterality: right Qualified Code(s): I82.431 - Acute embolism and thrombosis of right popliteal vein Chest pain Qualifiers: Chest pain type: unspecified Qualified Code(s): R07.9 - Chest pain, unspecified
[2023-05-29 17:13] LABS: Base Excess VBG -3.5 mEq/L; HCO3 VBG 23 mmol/L; Oxygen Saturation VBG < 60.0 %; PCO2 VBG 44 mmHg (38-50); PO2 VBG 33 mmHg; pH VBG 7.32 (7.36-7.41)
[2023-05-29 17:30] LABS: Basophils # (auto) 0.12 K/uL (0.00-0.20); Basophils % (auto) 0.7 %; Eosinophils # (auto) 0.13 K/uL (0.00-0.50); Eosinophils % (auto) 0.8 %; Hematocrit (blood only) 29.8 % (42.0-52.0); Hemoglobin 9.4 g/dl (14.0-18.0); Immature Granulocytes % (auto) 4.6 %; Lymphocytes # (auto) 1.87 K/uL (1.20-3.40); Lymphocytes % (auto) 10.8 %; Mean Corpuscular Hemoglobin 30.7 pg (25.0-34.0); Mean Corpuscular Hgb Conc 31.5 g/dL (32.0-36.0); Mean Corpuscular Volume 97.4 fL (80.0-100.0); Mean Platelet Volume 10.4 fL (9.4-12.4); Monocytes # (auto) 1.98 K/uL (0.11-0.59); Monocytes % (auto) 11.4 %; Neutrophils % (auto) 71.7 %; Platelet Count 265 K/uL (130-400); RDW Coefficient of Variation 17.3 % (11.5-14.5); RDW Standard Deviation 61.1 fL (36.4-46.3); Red Blood Count 3.06 M/uL (4.70-6.10)
[2023-05-29 17:44] LABS: Alanine Aminotransferase 61 U/L (7-52); Albumin Globulin Ratio 0.6 (0.9-2); Albumin Level 3.3 gm/dl (3.4-5.0); Alkaline Phosphatase 74 U/L (34-104); Anion Gap 8 (3-11); Aspartate Aminotransferase 38 U/L (13-39); BUN Creatinine Ratio 23.9 (10-20); Bilirubin,Total 0.7 mg/dl (0.2-1.0); Blood Urea Nitrogen 56 mg/dl (6-23); Calcium 10.5 mg/dl (8.6-10.3); Carbon Dioxide 22 mmol/L (21-32); Chloride 102 mmol/L (98-107); Est GFR (African American) 30.2 ml/min; Globulin 5.1 gm/dl (2.5-4.0); Glucose 199 mg/dl (70-99(Fasting)); Potassium 5.2 mmol/L (3.5-5.1); Sodium 132 mmol/L (136-145); Total Protein 8.4 gm/dl (6.0-8.3)
[2023-05-29] MEDS: CEFEPIME 2,000 MG/20 ML VIAL IV STA (17:45)
[2023-05-29 17:50] LABS: Troponin I High Sensitivity 10.1 pg/ml (0-20)
[2023-05-29 17:54] LABS: INR 1.1 (0.9-1.1); Partial Thromboplastin Ratio 1.1; Partial Thromboplastin Time 31 Seconds (21-31); Prothrombin Time 11.8 Seconds (9.0-12.0)
[2023-05-29 18:17] LABS: Adenovirus PCR Not Detected (NotDetected); Bordetella parapertussis PCR Not Detected (NotDetected); Bordetella pertussis PCR Not Detected (NotDetected); Chlamydia pneumoniae PCR Not Detected (NotDetected); Coronavirus 229E PCR Not Detected (NotDetected); Coronavirus CoV-2 (COVID19)PCR Not Detected (NotDetected); Coronavirus HKU1 PCR Not Detected (NotDetected); Coronavirus NL63 PCR Not Detected (NotDetected); Coronavirus OC43PCR Not Detected (NotDetected); Human Metapneumovirus PCR Not Detected (NotDetected); Influenza A PCR Not Detected (NotDetected); Influenza B PCR Not Detected (NotDetected); Mycoplasma pneumoniae PCR Not Detected (NotDetected); Parainfluenza Virus 1 PCR Not Detected (NotDetected); Parainfluenza Virus 2 PCR Not Detected (NotDetected); Parainfluenza Virus 3 PCR Not Detected (NotDetected); Parainfluenza Virus 4 PCR Not Detected (NotDetected); Respiratory Syncytial VirusPCR Not Detected (NotDetected); Rhinovirus/Enterovirus PCR Not Detected (NotDetected)
--- NOTE | 2023-05-29 18:22 | XRay Report ---
XR chest 1V portable HISTORY: 78 years-old Male CP acute chest pain COMPARISON: 05/22/2023 TECHNIQUE: AP view the chest FINDINGS: Cardiac silhouette is enlarged. Emphysema. No pneumothorax or large pleural effusion. Patchy bibasila r consolidation redemonstrated with slightly improved aeration of the left midlung. Intact. IMPRESSION: 1. Emphysema with persistent bibasilar opacities suggestive of pneumonia. 2. Cardiomegaly. ACT 112: Negative or not required by law. The above report was generated using voice recognition software. It may contain grammatical, syntax o r spelling errors. Electronically signed by: Tacho Carlin M.D. 05/29/2023 6:20 PM
--- NOTE | 2023-05-29 20:28 | Ultrasound Report ---
Exam(s): US VENOUS BILATERAL LOWER EXTREMITIES EXAM: US Duplex Bilateral Lower Extremities Veins CLINICAL HISTORY: Reason for exam: swelling. TECHNIQUE: Real-time duplex ultrasound scan of the bilateral lower extremity veins integrating B-mode two-dimensional vascular structure, Doppler spectral analysis, color flow Doppler imaging and compression. COMPARISON: May 25, 2023 and May 17, 2023 FINDINGS: Right deep veins: Occlusive thrombus in the right popliteal, peroneal, and posterior tibial veins consistent with DVT. Right superficial veins: There is thrombus in the right small saphenous vein as well. Left deep veins: Probable thrombus in the left peroneal veins. No other DVT is seen on the left. This is unchanged. Left superficial veins: Small amount of superficial thrombus of the left small saphenous vein in the popliteal fossa. Soft tissues: No acute findings. No popliteal cyst. IMPRESSION: 1. Occlusive thrombus in the right popliteal, peroneal, and posterior tibial veins consistent with DVT. This is new. 2. Probable thrombus in the left peroneal veins. No other DVT is seen on the left. This is unchanged. Communications: Call Doctor DVT acute, progressing Electronically signed by: Raúl Byers MD 05/29/23 20:27 PM
[2023-05-29] MEDS: SODIUM CHLORIDE 0.65% NA SOLN 45 ML (OCEAN) ONE (20:51)
[2023-05-29] MEDS: HEPARIN SODIUM/DEXTROSE 25,000 UNITS/500 ML BAG IV SCH (20:57)
[2023-05-29] MEDS: HEPARIN SOD (PORCINE) 1000 UNIT/ML IV ONE (20:59)
[2023-05-29] MEDS: Heparin IV Adult Wt-Based Standard w/ INITIAL Bolus Protocol IV STA (21:00)
--- NOTE | 2023-05-29 21:47 | History & Physical Report ---
Date of Service May 29, 2023 Assessment & Plan (1) Deep vein thrombosis of right lower extremity: (2) Chronic deep vein thrombosis (DVT) of left peroneal vein: (3) Pneumonia of both lower lobes due to Pseudomonas species: (4) Recurrent oral ulcers: (5) PAF (paroxysmal atrial fibrillation): (6) Bacteremia due to Pseudomonas: (7) Acute kidney injury superimposed on chronic kidney disease: (8) Multiple pulmonary nodules determined by computed tomography of lung: (9) Adenocarcinoma of left lung, stage 3: (10) Chronic obstructive pulmonary disease: (11) Herpetic keratoconjunctivitis: Plan Pneumonia of both lower lobes due to Pseudomonas aeruginosa/history of bacteremia and septic shock due to Pseudomonas- Patient had been scheduled to continue cefepime 2 g IV every 12 hours until 06/08/2023 Chest x-ray suggest persistence or progression, with inability to perform CTA this evening due to acute kidney injury For now add levofloxacin 500 mg IV daily Duonebs every 4 hours while awake and every 2 hours when necessary. Nasal cannula oxygen, titrate to keep pulse ox 92-94% Guaifenesin extended release 1200 mg p.o. every 12 hours New DVT right lower extremity/chronic left peroneal vein DVT- Right lower extremity DVT involving popliteal, peroneal and posterior tibial veins is new Patient had been on Eliquis which was stopped at last admission Start heparin drip, canceling bolus due to potential concerns regarding oral ulcer rebleeding Would attempt to order CTA chest for PE protocol if creatinine improves overnight Consideration should be given to reconsulting vascular surgery, who saw the patient at last visit, for reconsideration of IVC filter Acute kidney injury superimposed on CKD- Creatinine 2.34 on admission, with base 1.2 to Placed on NSS at 80 mL/h x 1 L recheck laboratories in a.m. Patient does have lower extremity edema, which may have worsened in the interim Give albumin 25 g IV x 1 now Temporarily hold furosemide and potassium chloride Herpetic keratoconjunctivitis- Saw ophthalmology for a left eye infection, and was recently started on Valacyclovir 1000 mg p.o. 3 times daily. Patient and report that there was a prescription gel which was not available locally at the pharmacy and is reportedly on the order Add trifluridine 1% family solution, 1 drop in left eye every 4 hours while awake History of bleeding oral ulcers- High risk for bleeding again being on IV heparin Was seen by Dr. Rae and treated with silver nitrate at last visit Continue triamcinolone acetonide/Kenalog Orabase History of Present Illness Chief Complaint: The patient presents to the emergency department due to worsening shortness of breath, and right-sided chest pain that began over the past 24 hours. He also has new right lower extremity swelling, and unchanged chronic left lower extremity swelling where he has known chronic DVT. He has not had any recent bleeding from his oral ulcers, but his is concerned that there is an area that was beginning to become more red Primary Care Provider: Efrem Estevez DO The patient is a 78-year-old male with a past medical history including left lower extremity DVT, recurrent oral ulcers with intermittent bleeding, Pseudomonas aeruginosa bibasilar pneumonia and septic shock, PAF, acute blood loss anemia, HFrEF, pancytopenia due to antineoplastic chemotherapy, COPD, adenocarcinoma of the left lung stage III on 01/27/2023, pneumothorax after biopsy, AAA repair, and multiple pulmonary nodules. His most recent [facility] admissions are from 04/20-05/05/2023, and 05/10-05/27/2023. He had Pseudomonas and blood cultures on 04/21/2023, and Pseudomonas in sputum on 05/13/2023. He was most recently discharged on cefepime 2 g IV every 12 hours, with dosing to continue until 06/08/2023. He had been taking Eliquis 5 mg twice daily as directed, but was put on hold at last admission and was to resume on 06/24/2023 or until instructed to resume by Dr. Roque. Chest x-ray this evening shows emphysema with persistent bibasilar opacities suggestive of pneumonia Creatinine of 2.34 needed and advisable to pursue CT angiography of this evening Bilateral lower extremity venous Dopplers showed a new right popliteal, peroneal and posterior tibial DVT. Persistence of left peroneal DVT Patient has recently been started for a left eye infection by ophthalmology on Valacyclovir 1000 mg p.o. 3 times daily, and a topical gel which they have not been able to get at the pharmacy yet due to it being out of stock In the ED the patient was started on heparin drip due to new right lower extremity DVT, and presumed right sided pulmonary embolism due to severe right- sided chest pain, which could possibly also have been worsening pneumonia Allergies Allergy/AdvReac Type Severity Reaction Status Date / Time JUAN R Inhibitors AdvReac Intermediate hyperkalemi Verified 05/29/23 17:22 a Home Medications Medication Instructions Recorded Confirmed Type ascorbate calcium (vitamin C) 500 500 mg PO QAM 09/23/18 05/29/23 History mg tablet aspirin 81 mg tablet,delayed 81 mg PO QAM 09/23/18 05/29/23 History release (Adult Aspirin Regimen) vitamin E succinate 268 mg (400 400 units PO QAM 11/30/18 05/29/23 History unit) tablet atorvastatin 20 mg tablet (Lipitor) 20 mg PO PM 90 days #90 tabs 06/24/22 05/29/23 Rx cholecalciferol (vitamin D3) 50 50 mcg PO QPM 01/20/23 05/29/23 History mcg (2,000 unit) capsule (Vitamin D3) prochlorperazine maleate 10 mg 10 mg PO Q8H PRN Nausea 03/18/23 05/29/23 History tablet (Compazine) fluticasone fur. 100 mcg-umeclid 1 inh inhalation DAILY #60 ea 03/31/23 05/29/23 Rx 62.5 mcg-vilant 25 mcg inhalat.powder (Trelegy Ellipta) ondansetron 8 mg disintegrating 8 mg PO Q8 PRN Nausea And Vomiting 04/21/23 05/29/23 History tablet apixaban 5 mg tablet (Eliquis) 5 mg PO BID #60 tabs 05/01/23 05/29/23 Rx Oxygen Home E0424 #1 L 05/05/23 05/07/23 Rx furosemide 20 mg tablet (Lasix) 20 mg PO QAM #30 tabs 05/05/23 05/29/23 Rx magnesium oxide 400 mg (241.3 mg 400 mg PO QAM #30 tabs 05/05/23 05/29/23 Rx magnesium) tablet cefepime 2 gram solution for 2 g IV Q12H pseudomonas pneumonia 05/27/23 05/29/23 Rx injection chlorhexidine gluconate 0.12 % 15 ml MT BID mouth ulcer #473 mL 05/27/23 05/29/23 Rx mouthwash sodium chloride 0.65 % nasal spray 2 spray NA Q1H PRN dry nasal 05/27/23 05/29/23 Rx aerosol (Saline Mist) passages #0 mL triamcinolone acetonide 0.1 % 1 applic MT TID mouth ulcer #5 05/27/23 05/29/23 Rx dental paste grams albuterol sulfate 90 mcg/actuation 2 inh inhalation QID PRN shortness 05/28/23 05/29/23 Rx aerosol inhaler of breath or wheezing #8.5 grams amiodarone 200 mg tablet 200 mg PO DAILY 05/28/23 05/29/23 History potassium chloride 10 mEq 10 meq PO DAILY #30 tabs 05/28/23 05/29/23 Rx tablet,extended release valacyclovir 1 gram tablet 1,000 mg PO TID 05/29/23 05/29/23 History Past Med/Surg History Medical History (Updated 05/30/23 @ 05:27 by Joel Benitez MD) Pneumonia of both lower lobes due to Pseudomonas species Weakness of voice Diarrhea Multifocal pneumonia Chronic diastolic heart failure Chronic obstructive pulmonary disease Lower extremity edema BPH (benign prostatic hyperplasia) Hyperlipidemia Lung cancer Abdominal aortic aneurysm s/p repair 2015 Multiple pulmonary nodules determined by computed tomography of lung BPH (benign prostatic hyperplasia) Kidney stones hx PVC (premature ventricular contraction) on occasion Hypertension Diverticulosis Hyperlipemia COPD (chronic obstructive pulmonary disease) well controlled per pt > no res inh use Surgical History History of aortic aneurysm repair endovascular > [facility] [place] > 2016 > follows with [facility] cardiology. Has to go for scan on 02/06/23 to check for "leak around the stent" as evidence of size increase per recent ultrasound [facility]. History of cataract surgery bilat History of tooth extraction dental implants History of lithotripsy History of inguinal hernia repair left x 1, right x 2. H/O colonoscopy 07/2020 repeat 5 years Family History Father Colon cancer Colorectal cancer Family/Other Heart disease Hypertension Mother Stroke Denies family history of Ovarian cancer Prostate cancer Myocardial infarction Breast cancer Social History Smoking Status: Former smoker Tobacco Type: Cigarettes Age Started Using Tobacco: 32; packs per day: 0.5; Cigarettes Per Day: 10 cigs per day; Second Hand Exposure: No; Do You Dip or Chew Tobacco: No; Tobacco Cessation Education Requested by Patient: No Hx Alcohol Use: No Hx Substance Use: No Preferred Language: Romansh Communication Ability: Effective Visual Impairment: Limited Hearing Ability: Normal [place] Required: No Beliefs That Will Affect Care: None marital status: Current Living Situation: Spouse Current Living Situation Comment: lives with current occupational status: retired 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 How many Children do You have: 1 Other Information That Helps Us Care for You: No Feels Safe at Home: Yes Safety Concerns: Feels Safe At This Time Childhood Exposure to Second-Hand Smoke: No caffeine: Yes Dental Care, Regularly: Yes Physical Activity Frequency: Does not Exercise Seatbelt Use: always Sunscreen Use: Yes Assistive Devices: Oxygen - Continuous Review of Systems Review of Systems: The patient denies palpitations, fevers, chills, sweats, nausea, vomiting, diarrhea , constipation, abdominal pain, pelvic pain, blood in urine or stool, dysuria, urinary frequency or urgency, lightheadedness, dizziness, headache, memory loss, loss of consciousness, imbalance, focal weakness, numbness or tingling in arms or legs, generalized arthralgias or myalgias, back or neck pain, or night sweats. The review of systems is otherwise negative other than for that already noted above, and at least 10 systems have been reviewed. Physical Exam Physical Exam: The patient is awake, alert and oriented 3, well developed and well nourished, normocephalic and atraumatic, lying in bed and in no acute distress. HEENT--PERRL, EOMI, mucous membranes and oropharynx mildly dry. Neck--supple. No JVD. No bruits. Thyroid normal, trachea midline, no adenopathy. Heart--normal S1 and S2. No murmurs, rubs or gallops. Lungs--coarse breath sounds at the bases bilaterally. No respiratory distress, no accessory muscle use. Abdomen--normal bowel sounds and soft. Nontender. Nondistended Extremities--1+ bilateral pretibial pitting edema Dermatologic--normal skin turgor, normal color, no abnormal lymph nodes, no rash. Neurologic--cranial nerves II through XII grossly intact. Rheumatologic--normal range of motion. Psychiatric--normal affect. Results & Data Results & Data Vital Signs (Past 12 Hours) Vital Signs Temp Pulse Resp BP Pulse Ox O2 Del Method O2 Flow Rate 05/29/23 21:40 73 18 94 Oxymask 5 05/29/23 21:30 107/65 05/29/23 21:30 74 19 94 05/29/23 21:20 76 20 95 05/29/23 21:10 83 95 05/29/23 21:00 79 94 05/29/23 21:00 115/68 05/29/23 20:58 79 05/29/23 20:50 76 19 96 05/29/23 20:40 84 94 05/29/23 20:30 82 05/29/23 20:30 105/65 05/29/23 20:20 80 17 91 05/29/23 20:19 102/65 05/29/23 20:19 79 19 90 05/29/23 19:00 78 19 96 05/29/23 19:00 106/65 05/29/23 18:50 79 18 97 05/29/23 18:40 75 17 96 05/29/23 18:30 76 23 98 05/29/23 18:30 108/66 05/29/23 18:30 108/66 05/29/23 18:30 80 22 108/66 99 Nasal Cannula 6 05/29/23 18:20 76 17 97 05/29/23 18:10 78 21 95 05/29/23 18:00 81 20 96 05/29/23 18:00 103/71 05/29/23 17:50 80 95 05/29/23 17:40 76 15 98 05/29/23 17:30 82 22 98 05/29/23 17:30 111/70 05/29/23 17:30 111/70 05/29/23 17:20 84 23 99 05/29/23 17:13 96 Nasal Cannula 05/29/23 17:13 97 Nasal Cannula 6 05/29/23 17:10 85 20 98 05/29/23 17:01 90 21 05/29/23 17:01 113/71 05/29/23 17:00 90 20 92 05/29/23 17:00 88 05/29/23 16:58 90 22 94 05/29/23 16:26 36.4 C L 111 H 24 98/61 L 93 Nasal Cannula 6 Laboratory Results Laboratory Results WBC 17.30 K/ul (4.8-10.8) H 05/29/23 16:45 RBC 3.06 M/uL (4.70-6.10) L 05/29/23 16:45 Hgb 9.4 g/dl (14.0-18.0) L 05/29/23 16:45 Hct 29.8 % (42.0-52.0) L 05/29/23 16:45 MCV 97.4 fL (80.0-100.0) 05/29/23 16:45 MCH 30.7 pg (25.0-34.0) 05/29/23 16:45 MCHC 31.5 g/dL (32.0-36.0) L 05/29/23 16:45 RDW Std Deviation 61.1 fL (36.4-46.3) H 05/29/23 16:45 RDW Coeff of Fany 17.3 % (11.5-14.5) H 05/29/23 16:45 Plt Count 265 K/uL (130-400) 05/29/23 16:45 MPV 10.4 fL (9.4-12.4) 05/29/23 16:45 Immature Gran % (Auto) 4.6 % 05/29/23 16:45 Neut % (Auto) 71.7 % 05/29/23 16:45 Lymph % (Auto) 10.8 % 05/29/23 16:45 Franklin % (Auto) 11.4 % 05/29/23 16:45 Eos % (Auto) 0.8 % 05/29/23 16:45 Baso % (Auto) 0.7 % 05/29/23 16:45 Neut # (Auto) 12.40 K/uL (1.40-6.50) H 05/29/23 16:45 Lymph # (Auto) 1.87 K/uL (1.20-3.40) 05/29/23 16:45 Franklin # (Auto) 1.98 K/uL (0.11-0.59) H 05/29/23 16:45 Eos # (Auto) 0.13 K/uL (0.00-0.50) 05/29/23 16:45 Baso # (Auto) 0.12 K/uL (0.00-0.20) 05/29/23 16:45 Immature Gran # (Auto) 0.80 K/uL (0.01-0.20) H 05/29/23 16:45 PT 11.8 Seconds (9.0-12.0) 05/29/23 16:45 INR 1.1 (0.9-1.1) 05/29/23 16:45 APTT 31 Seconds (21-31) 05/29/23 16:45 PTT Ratio 1.1 05/29/23 16:45 Heparin Anti-Xa, Unfract 0.42 IU/ml (0.3-0.7) 05/30/23 00:43 VBG pH 7.32 (7.36-7.41) L 05/29/23 19:43 VBG pCO2 44 mmHg (38-50) 05/29/23 19:43 VBG pO2 33 mmHg 05/29/23 19:43 VBG HCO3 23 mmol/L 05/29/23 19:43 VBG O2 Saturation < 60.0 % 05/29/23 19:43 VBG Base Excess -3.5 mEq/L 05/29/23 19:43 Sodium 132 mmol/L (136-145) L 05/29/23 16:45 Potassium 5.2 mmol/L (3.5-5.1) H 05/29/23 16:45 Chloride 102 mmol/L (98-107) 05/29/23 16:45 Carbon Dioxide 22 mmol/L (21-32) 05/29/23 16:45 Anion Gap 8 (3-11) 05/29/23 16:45 BUN 56 mg/dl (6-23) H 05/29/23 16:45 Creatinine 2.34 mg/dl (0.6-1.4) H 05/29/23 16:45 Est Cr Clr Drug Dosing Not Reportable 05/29/23 16:45 Est GFR ( Amer) 30.2 ml/min 05/29/23 16:45 Est GFR (Non-Af Amer) 26.0 ml/min 05/29/23 16:45 BUN/Creatinine Ratio 23.9 (10-20) H 05/29/23 16:45 Glucose 199 mg/dl (70-99(Fasting)) H 05/29/23 16:45 Calcium 10.5 mg/dl (8.6-10.3) H 05/29/23 16:45 Total Bilirubin 0.7 mg/dl (0.2-1.0) 05/29/23 16:45 AST 38 U/L (13-39) 05/29/23 16:45 ALT 61 U/L (7-52) H 05/29/23 16:45 Alkaline Phosphatase 74 U/L (34-104) 05/29/23 16:45 Troponin I High Sens 10.1 pg/ml (0-20) 05/29/23 16:45 B-Natriuretic Peptide 106 pg/ml (0-100) H 05/29/23 16:45 Total Protein 8.4 gm/dl (6.0-8.3) H 05/29/23 16:45 Albumin 3.3 gm/dl (3.4-5.0) L 05/29/23 16:45 Globulin 5.1 gm/dl (2.5-4.0) H 05/29/23 16:45 Albumin/Globulin Ratio 0.6 (0.9-2) L 05/29/23 16:45 Adenovirus (PCR) Not Detected (NotDetected) 05/29/23 16:40 B. pertussis DNA (PCR) Not Detected (NotDetected) 05/29/23 16:40 B.parapertussis DNA PCR Not Detected (NotDetected) 05/29/23 16:40 C. pneumoniae DNA (PCR) Not Detected (NotDetected) 05/29/23 16:40 Coronavirus OC43 (PCR) Not Detected (NotDetected) 05/29/23 16:40 Coronavirus HKU1 (PCR) Not Detected (NotDetected) 05/29/23 16:40 Coronavirus 229E (PCR) Not Detected (NotDetected) 05/29/23 16:40 SARS-CoV-2 (PCR) Not Detected (NotDetected) 05/29/23 16:40 Coronavirus NL63 (PCR) Not Detected (NotDetected) 05/29/23 16:40 Human Metapneumovir PCR Not Detected (NotDetected) 05/29/23 16:40 Influenza Type A (PCR) Not Detected (NotDetected) 05/29/23 16:40 Influenza Type B (PCR) Not Detected (NotDetected) 05/29/23 16:40 M. pneumoniae (PCR) Not Detected (NotDetected) 05/29/23 16:40 Parainfluenza 1 (PCR) Not Detected (NotDetected) 05/29/23 16:40 Parainfluenza 2 (PCR) Not Detected (NotDetected) 05/29/23 16:40 Parainfluenza 3 (PCR) Not Detected (NotDetected) 05/29/23 16:40 Parainfluenza 4 (PCR) Not Detected (NotDetected) 05/29/23 16:40 RSV (PCR) Not Detected (NotDetected) 05/29/23 16:40 Entero/Rhino (PCR) Not Detected (NotDetected) 05/29/23 16:40 Impressions Chest X-Ray 05/29/23 18:04 XR chest 1V portable HISTORY: 78 years-old Male CP acute chest pain COMPARISON: 05/22/2023 TECHNIQUE: AP view the chest FINDINGS: Cardiac silhouette is enlarged. Emphysema. No pneumothorax or large pleural effusion. Patchy bibasilar consolidation redemonstrated with slightly improved aeration of the left midlung. Intact. IMPRESSION: 1. Emphysema with persistent bibasilar opacities suggestive of pneumonia. 2. Cardiomegaly. ACT 112: Negative or not required by law. The above report was generated using voice recognition software. It may contain grammatical, syntax or spelling errors. Electronically signed by: Tacho Carlin M.D. 05/29/2023 6:20 PM Venous Doppler Study 05/29/23 18:04 CR Exam(s): US VENOUS BILATERAL LOWER EXTREMITIES EXAM: US Duplex Bilateral Lower Extremities Veins CLINICAL HISTORY: Reason for exam: swelling. TECHNIQUE: Real-time duplex ultrasound scan of the bilateral lower extremity veins integrating B-mode two-dimensional vascular structure, Doppler spectral analysis, color flow Doppler imaging and compression. COMPARISON: May 25, 2023 and May 17, 2023 FINDINGS: Right deep veins: Occlusive thrombus in the right popliteal, peroneal, and posterior tibial veins consistent with DVT. Right superficial veins: There is thrombus in the right small saphenous vein as well. Left deep veins: Probable thrombus in the left peroneal veins. No other DVT is seen on the left. This is unchanged. Left superficial veins: Small amount of superficial thrombus of the left small saphenous vein in the popliteal fossa. Soft tissues: No acute findings. No popliteal cyst. IMPRESSION: 1. Occlusive thrombus in the right popliteal, peroneal, and posterior tibial veins consistent with DVT. This is new. 2. Probable thrombus in the left peroneal veins. No other DVT is seen on the left. This is unchanged. Communications: Call Doctor DVT acute, progressing Electronically signed by: Raúl Byers MD 05/29/23 20:27 PM Code Status & VTE Plan Code Status Full code VTE Prophylaxis Plan VTE Prophylaxis will be ordered: Yes PG Care Time/CCT Total # of Minutes Spent Total Time Spent with Patient: Total time spent is greater than 50% in coordination of care (as documented) at patient's floor/unit and/or counseling patient: Coding Level of Care Code 68443 INT INP/OBS CARE 3/75MIN Diagnoses Deep vein thrombosis of right lower extremity I82.401 Chronic deep vein thrombosis (DVT) of left peroneal vein I82.552 Pneumonia of both lower lobes due to Pseudomonas species J15.1 Recurrent oral ulcers K13.79 PAF (paroxysmal atrial fibrillation) I48.0 Bacteremia due to Pseudomonas R78.81; B96.5 Acute kidney injury superimposed on chronic kidney disease N17.9; N18.9 Multiple pulmonary nodules determined by computed tomography of lung R91.8 Adenocarcinoma of left lung, stage 3 C34.92 Centrilobular emphysema J43.2 COPD type: emphysema Emphysema type: centrilobular Herpetic keratoconjunctivitis B00.52 (10) 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
[2023-05-29] MEDS: ALBUT/IPRATROP 3MG/0.5MG NEB 3 ML VIAL NEB PRN (22:07)
[2023-05-29] MEDS: SODIUM CHLORIDE 0.9% 1,000 ML IV SCH (22:07)
[2023-05-29] MEDS: levoFLOXacin/D5W 500 MG/100 ML BAG IV STA (22:07)
[2023-05-29] MEDS: ALBUMIN 25% 25 GM/100 ML VIAL IV ONE (22:07)
[2023-05-29] MEDS ORDERED: ONDANSETRON INJ 2 MG/ML 2 ML VIAL IV PRN (23:51)
[2023-05-29] MEDS ORDERED: SODIUM CHLORIDE 0.65% NA SOLN 45 ML (OCEAN) PRN (23:51)
[2023-05-30 01:34] LABS: ANTI-Xa, UFH(UnfractionatedHep 0.42 IU/ml (0.3-0.7)
[2023-05-30] MEDS: cefTAZidime 2,000 MG in DEXTROSE 5 % MINI-B 50 ML IV SCH (02:08)
[2023-05-30] MEDS: TRIFLURIDINE 1% 7.5 ML BTL OP SCH (04:09)
--- NOTE | 2023-05-30 06:10 | Electrocardiogram Report ---
Test Reason : Blood Pressure : / mmHG Vent. Rate : 104 BPM Atrial Rate : 104 BPM P-R Int : 136 ms QRS Dur : 092 ms QT Int : 326 ms P-R-T Axes : 061 -37 049 degrees QTc Int : 428 ms Sinus tachycardia Left axis deviation Incomplete right bundle branch block Abnormal ECG When compared with ECG of 11-MAY-2023 05:35, Premature ventricular complexes are no longer Present QRS axis Shifted left Confirmed by Ben Huff ([id number]) on 05/30/2023 6:09:34 AM Referred By: REFERRED SELF Confirmed By:Dez Huff
[2023-05-30 06:31] LABS: Basophils # (auto) 0.07 K/uL (0.00-0.20); Basophils % (auto) 0.6 %; Eosinophils # (auto) 0.21 K/uL (0.00-0.50); Eosinophils % (auto) 1.8 %; Hematocrit (blood only) 23.3 % (42.0-52.0); Hemoglobin 7.2 g/dl (14.0-18.0); Immature Granulocytes # (auto) 0.56 K/uL (0.01-0.20); Immature Granulocytes % (auto) 4.9 %; Lymphocytes # (auto) 1.21 K/uL (1.20-3.40); Lymphocytes % (auto) 10.6 %; Mean Corpuscular Hgb Conc 30.9 g/dL (32.0-36.0); Mean Corpuscular Volume 97.1 fL (80.0-100.0); Mean Platelet Volume 10.2 fL (9.4-12.4); Monocytes # (auto) 1.41 K/uL (0.11-0.59); Monocytes % (auto) 12.3 %; Neutrophils # (auto) 7.97 K/uL (1.40-6.50); Neutrophils % (auto) 69.8 %; Platelet Count 187 K/uL (130-400); RDW Standard Deviation 59.9 fL (36.4-46.3); White Blood Count 11.43 K/ul (4.8-10.8)
[2023-05-30 06:41] LABS: Albumin Globulin Ratio 0.7 (0.9-2); Albumin Level 2.8 gm/dl (3.4-5.0); BUN Creatinine Ratio 23.9 (10-20); Bilirubin,Total 0.7 mg/dl (0.2-1.0); Calcium 9.7 mg/dl (8.6-10.3); Creatinine Clr Calc Pharmacy 25.4 ml/min; Est GFR (African American) 31.5 ml/min; Est GFR (Non-African American) 27.2 ml/min; Globulin 3.8 gm/dl (2.5-4.0); Magnesium 1.8 mg/dl (1.7-2.4); Potassium 4.7 mmol/L (3.5-5.1); Total Protein 6.6 gm/dl (6.0-8.3)
[2023-05-30 06:49] LABS: ANTI-Xa, UFH(UnfractionatedHep 0.61 IU/ml (0.3-0.7)
[2023-05-30 07:00] LABS: Polychromasia 1+
[2023-05-30] MEDS ORDERED: levoFLOXacin/D5W 500 MG/100 ML BAG IV SCH (07:00)
[2023-05-30] MEDS: MAGNESIUM OXIDE 400 MG TAB PO SCH (07:54)
[2023-05-30] MEDS: valACYclovir HCL 500 MG TABLET PO SCH (07:54)
[2023-05-30] MEDS: TOCOPHERYL, DL-ALPHA 400 UNITS 180 MG CAP PO SCH (07:54)
[2023-05-30] MEDS: AMIODARONE 200 MG TAB PO SCH (07:54)
[2023-05-30] MEDS: guaiFENesin 600 MG TABCR PO SCH (07:54)
[2023-05-30] MEDS: ASCORBIC ACID 500 MG TAB PO SCH (07:54)
[2023-05-30] MEDS: UMECLIDINIUM/VILANTEROL 62.5/25MCG 7 PUFFS/INHALER INH SCH (07:55)
[2023-05-30] MEDS: FLUTICASONE FUROATE 100MCG 14 PUFFS/INHALER INH SCH (07:55)
[2023-05-30] MEDS: CHLORHEXIDINE GLUCONATE 0.12% 480 ML MT SCH (07:55)
[2023-05-30] MEDS: TRIAMCINOLONE ACET 0.1% ORABASE 5 GM TUBE MT SCH (07:56)
[2023-05-30 08:30] LABS: Appearance Urine Clear (Clear); Bacteria Urine Automated None Seen (None Seen); Bilirubin Urine Negative (Negative); Blood Urine 1+ (Negative); Color Urine Yellow; Epithelial Cell Urine Auto 0-2 /hpf (0-2); Glucose Urine UA Negative (Negative); Ketones Urine Trace (Negative); Leukocyte Esterase Urine Negative (Negative); Nitrite Urine Negative (Negative); Protein Urine 2+ (Negative); RBC Urine Automated 0-2 /hpf (0-2); Specific Gravity Urine 1.016 (1.000-1.030); Urobilinogen Urine Negative (Negative); WBC Urine Automated 0-5 /hpf (0-5); pH Urine 5.5 (4.5-7.5)
[2023-05-30 08:45] LABS: Granular Casts Urine Present /lpf (None Prsent)
[2023-05-30] MEDS ORDERED: NON-FORMULARY MEDICATION (Fluticasone-Umeclidin-Vilanter [Trelegy Ellipta] 100-62.5-25 mcg INH SCH (09:00)
[2023-05-30] MEDS ORDERED: valACYclovir HCL 500 MG TABLET PO SCH (09:00)
[2023-05-30] MEDS: GANCICLOVIR SCH ×2 (15:16→18:56)
[2023-05-30] MEDS: cefTAZidime 1,000 MG in DEXTROSE 5 % MINI-B 50 ML IV SCH (15:50)
--- NOTE | 2023-05-30 16:10 | Hospitalist Progress Note ---
Date of Service May 30, 2023 Assessment & Plan (1) Pulmonary embolism: Plan: Presumed pulmonary embolism with R lower chest pleuritic pain, setting of acute RLE DVT and hypercoagulable state due to malignancy, mild increase in hypoxia cannot get CTA safely with current ABHISHEK, also abnormal CXR so VQ will not be diagnostic. Also, imaging will not telephone exchange operator Was not on anticoagulation because developed oral bleeding despite multiple attempts at AC over the past several weeks Oral ulcer has improved some even since Thursday. Continue trial of heparin - tolerating so far with no significant bleeding. If tolerating resume apixaban IVC filter is an option (though a poor one) if he cannot be anticoagulated - he will inevitably clot off his legs below the filter (2) Deep vein thrombosis of right lower extremity: Plan: multiple calf veins: popliteal, peroneal and posterior tibial veins, new since last LE duplex Wednesday 05/24 (3) Acute kidney injury superimposed on chronic kidney disease: Plan: Baseline Cr 1.2. Only slight improvement in Cr overnight Likely prerenal ABHISHEK, IV fluids overnight with improvement in UOP. Continue holding lasix. AM BMP Valacyclovir also can be associated with ABHISHEK (4) Chronic deep vein thrombosis (DVT) of left peroneal vein: Plan: noted last admission. Dr Manuel reviewed imaging and appearance consistent with chronic. (5) Pneumonia of both lower lobes due to Pseudomonas species: Plan: Has had severe pseudomonas pneumonia, bacteremia early in course, and acute respiratory failure from this Has home O2 Rx for 3L at rest and 6L with activity. Earlier this week was 2L at rest and 4L with activity. CXR reviewed - by my interpretation of the film and radiologist report it is improved, with some clearing in L base that matches with my exam (now has breath sounds in L base, previously did not) Only slightly more O2 requirement (setting of probable PE), WBC still 11 after rehydration, no fever. I do not think the pneumonia is worse -resume cefepime per previous ID recs, continue through 06/07 as planned -try to get sputum culture to check sensis, 05/12 was castellon-sensitive -flutter valve (6) Recurrent oral ulcers: Plan: Has had severe persistent ulcer roof of mouth. Viral swab was negative for HSV 1/[address] Rae has consulted, cauterized with silver nitrate, and recommended topical treatments - continue Continue triamcinolone acetonide/Kenalog Orabase and chlorhexadine -follow up with Dr. Rae and his dentist (7) PAF (paroxysmal atrial fibrillation): Plan: Continue amiodarone for rate control Anticoagulation as tolerated (8) Adenocarcinoma of left lung, stage 3: Plan: Followed by Dr. Roque Had one cycle of chemo and developed septic shock from pseudomonas bacteremia and pneumonia, has not recovered well enough yet for further chemo (9) Chronic obstructive pulmonary disease: Plan: Duoneps scheduled and PRN. Not in exacerbation (10) Herpetic keratoconjunctivitis: Plan: L eye. Seen by his optho this week -continue valacyclovir, renally dosed to 1000 mg daily -continue trifluridine drops and gancyclovir gel - has from own supply, ordered (11) Chronic systolic CHF (congestive heart failure): Plan: Euvolemic to dry Plan DVT ppx - anticoagulated Admission and Anticipated Discharge Date Admission Date: May 29, 2023 Subjective Had R lower chest pain with inspiration, could not breathe deeply. This pain is significantly improved though still present with deep inspiration today Edema is down a lot since Thus, looks dry No leg pain or swelling (except usual edema near ankles/feet) Slight blood in spit today but no significant oral bleeding Cough has been nonproductive Physical Exam 2 Physical Exam: PHYSICAL EXAMINATION Last 24h vital signs reviewed, see documentation in flowsheet General: comfortable appearing, no distress HEENT: Normocephalic, atraumatic, pupils round and equal, sclerae anicteric, no conjunctival injection, moist mucus membranes oral hard palate ulcer with 2.5 cm eschar, no active bleeding, evidence of healing - much better than 3 weeks ago, improved since earlier this week Lungs: Normal respiratory effort. Bibasilar crackles. Diminshed L base but breath sounds now present which is an improvement. No wheezing Heart: Regular rate and rhythm, no murmurs. No JVD Abdomen: Soft, nontender, nondistended. Bowel sounds present. Extremities: Warm, dry, well-perfused. 1+ extremity edema - ankles/feet only, decreased since Weds. Neuro: Alert and oriented x 4, face symmetric, moves 4 extremities well Psych: Normal affect and behavior Results & Data Results & Data Vital Signs (Past 12 Hours) Vital Signs Temp Pulse Pulse Resp BP Pulse Ox O2 Del Method 05/30/23 15:23 36.5 C 65 18 106/59 L 95 Oxymask 05/30/23 11:34 36.4 C L 68 20 104/61 90 Oxymask 05/30/23 08:03 36.5 C 66 20 109/66 93 Oxymask 05/30/23 07:20 60 05/30/23 07:20 Oxymask O2 Flow Rate 05/30/23 15:23 4 05/30/23 11:34 4 05/30/23 08:03 4 05/30/23 07:20 05/30/23 07:20 4 Laboratory Results 05/30/23 05:28 05/30/23 05:28 PG Care Time/CCT Total # of Minutes Spent Total Time Spent with Patient: Total time spent is greater than 50% in coordination of care (as documented) at patient's floor/unit and/or counseling patient: Coding Level of Care Code 65929 SUB INP/OBS CARE 3/50MIN Diagnoses Pulmonary embolism I26.99 Deep vein thrombosis of right lower extremity I82.401 Acute kidney injury superimposed on chronic kidney disease N17.9; N18.9 Chronic deep vein thrombosis (DVT) of left peroneal vein I82.552 Pneumonia of both lower lobes due to Pseudomonas species J15.1 Recurrent oral ulcers K13.79 PAF (paroxysmal atrial fibrillation) I48.0 Adenocarcinoma of left lung, stage 3 C34.92 Centrilobular emphysema J43.2 COPD type: emphysema Emphysema type: centrilobular Herpetic keratoconjunctivitis B00.52 Chronic systolic CHF (congestive heart failure) I50.22 (9) 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
[2023-05-30] MEDS: CHOLECALCIFEROL 25 MCG (1000 UNITS) TAB PO SCH (20:58)
[2023-05-30] MEDS: ATORVASTATIN 20 MG TAB PO SCH (20:59)
[2023-05-30] MEDS ORDERED: levoFLOXacin/D5W 250 MG/50 ML BAG IV SCH (21:00)
[2023-05-30] MEDS: CEFEPIME 1,000 MG in SYRINGE 0 ML IV SCH (21:04)
[2023-05-31] MEDS ORDERED: CEFEPIME 2,000 MG in SYRINGE 0 ML IV SCH (01:00)
[2023-05-31 06:43] LABS: Hematocrit (blood only) 22.6 % (42.0-52.0); Hemoglobin 7.2 g/dl (14.0-18.0); Mean Corpuscular Hemoglobin 30.4 pg (25.0-34.0); Mean Corpuscular Hgb Conc 31.9 g/dL (32.0-36.0); Mean Corpuscular Volume 95.4 fL (80.0-100.0); Platelet Count 191 K/uL (130-400); RDW Coefficient of Variation 17.2 % (11.5-14.5); RDW Standard Deviation 59.4 fL (36.4-46.3); Red Blood Count 2.37 M/uL (4.70-6.10)
[2023-05-31 06:56] LABS: Albumin Globulin Ratio 0.7 (0.9-2); Albumin Level 2.6 gm/dl (3.4-5.0); BUN Creatinine Ratio 22.1 (10-20); Bilirubin,Total 0.6 mg/dl (0.2-1.0); Calcium 9.6 mg/dl (8.6-10.3); Creatinine Clr Calc Pharmacy 30.2 ml/min; Est GFR (African American) 38.8 ml/min; Est GFR (Non-African American) 33.5 ml/min; Globulin 3.7 gm/dl (2.5-4.0); Magnesium 1.6 mg/dl (1.7-2.4); Potassium 4.1 mmol/L (3.5-5.1); Total Protein 6.3 gm/dl (6.0-8.3)
[2023-05-31 07:12] LABS: Basophils # (auto) 0.07 K/uL (0.00-0.20); Basophils % (auto) 0.6 %; Eosinophils # (auto) 0.24 K/uL (0.00-0.50); Eosinophils % (auto) 2.2 %; Immature Granulocytes # (auto) 0.44 K/uL (0.01-0.20); Immature Granulocytes % (auto) 4.1 %; Lymphocytes # (auto) 1.23 K/uL (1.20-3.40); Lymphocytes % (auto) 11.4 %; Monocytes # (auto) 1.23 K/uL (0.11-0.59); Monocytes % (auto) 11.4 %; Neutrophils # (auto) 7.59 K/uL (1.40-6.50); Neutrophils % (auto) 70.3 %; Polychromasia 1+
[2023-05-31] MEDS: MAGNESIUM SULFATE / D5W 1 GM/100 ML BAG IV SCH (10:53)
[2023-05-31] MEDS ORDERED: SODIUM CHLORIDE 0.9% 250 ML IV PRN (15:35)
--- NOTE | 2023-05-31 15:48 | Hospitalist Progress Note ---
Date of Service May 31, 2023 Assessment & Plan (1) Pulmonary embolism: Plan: Presumed pulmonary embolism with R lower chest pleuritic pain, setting of acute RLE DVT and hypercoagulable state due to malignancy, mild increase in hypoxia cannot get CTA safely with current ABHISHEK, also abnormal CXR so VQ will not be diagnostic. Also, imaging will not globe changer Was not on anticoagulation because developed oral bleeding despite multiple attempts at AC over the past several weeks Oral ulcer has improved some even since Thursday. continue heparin, no sig bleeding, possible apixaban tomorrow IVC filter is an option (though a poor one) if he cannot be anticoagulated - he will inevitably clot off his legs below the filter (2) Deep vein thrombosis of right lower extremity: Plan: multiple calf veins: popliteal, peroneal and posterior tibial veins, new since last LE duplex Wednesday 05/24 (3) Acute kidney injury superimposed on chronic kidney disease: Plan: Baseline Cr 1.2. Cr improved to 1.9 Likely prerenal ABHISHEK, IV fluids overnight with improvement in UOP. Continue holding lasix. Valacyclovir also can be associated with ABHISHEK -AM BMP replacing hypomag, check AM mag (4) Chronic deep vein thrombosis (DVT) of left peroneal vein: Plan: noted last admission. Dr Manuel reviewed imaging and appearance consistent with chronic. (5) Pneumonia of both lower lobes due to Pseudomonas species: Plan: Has had severe pseudomonas pneumonia, bacteremia early in course, and acute respiratory failure from this Has home O2 Rx for 3L at rest and 6L with activity. Earlier this week was 2L at rest and 4L with activity. CXR reviewed - by my interpretation of the film and radiologist report it is improved, with some clearing in L base that matches with my exam (now has breath sounds in L base, previously did not) O2 req back down to previous 3L, WBC down to 10, no fever. I do not think the pneumonia is worse -resume cefepime per previous ID recs, continue through 06/07 as planned -try to get sputum culture to check sensis, / was castellon-sensitive -flutter valve (6) Recurrent oral ulcers: Plan: Has had severe persistent ulcer roof of mouth. Viral swab was negative for HSV 1/[address] Rae has consulted, cauterized with silver nitrate, and recommended topical treatments - continue Continue triamcinolone acetonide/Kenalog Orabase and chlorhexadine -follow up with Dr. Rae and his dentist -improving (7) PAF (paroxysmal atrial fibrillation): Plan: Continue amiodarone for rate control Anticoagulation as tolerated (8) Adenocarcinoma of left lung, stage 3: Plan: Followed by Dr. Roque Had one cycle of chemo and developed septic shock from pseudomonas bacteremia and pneumonia, has not recovered well enough yet for further chemo (9) Chronic obstructive pulmonary disease: Plan: Duoneps scheduled and PRN. Not in exacerbation (10) Herpetic keratoconjunctivitis: Plan: L eye. Seen by his optho this week -continue valacyclovir, renally dosed to 1000 mg daily -continue trifluridine drops and gancyclovir gel - has from own supply, ordered (11) Chronic systolic CHF (congestive heart failure): Plan: Euvolemic to dry Plan Anemia - related to slow blood loss from oral ulcer, phlebotomy. Last transfusion was 1 unit 05/10. Hgb drifted down to 7.2 -transfusion 1u rbc. discussed risks/benefits - hypoxia, kidneys, vs risk vol overload ayesha. consent in chart from 05/10 DVT ppx - anticoagulated Updated his at bedside 05/29, 05/30 Admission and Anticipated Discharge Date Admission Date: May 29, 2023 Subjective doing ok still has some pain R lower chest with deep breath leg edema unchanged on 3L O2 Physical Exam 2 Physical Exam: PHYSICAL EXAMINATION Last 24h vital signs reviewed, see documentation in flowsheet General: comfortable appearing, no distress, sitting in chair HEENT: Normocephalic, atraumatic, pupils round and equal, sclerae anicteric, no conjunctival injection, moist mucus membranes oral hard palate ulcer with 1x2 cm eschar improved, no active bleeding, shallow ulcerations, evidence of healing Lungs: Normal respiratory effort. Bibasilar crackles. Diminshed L base but breath sounds now present which is an improvement. No wheezing - slightly improved L base today Heart: Regular rate and rhythm, no murmurs. No JVD Abdomen: Soft, nontender, nondistended. Bowel sounds present. Extremities: Warm, dry, well-perfused. 1+ extremity edema - ankles/feet only, decreased since Wed. unchanged Neuro: Alert and oriented x 4, face symmetric, moves 4 extremities well Psych: Normal affect and behavior Results & Data Results & Data Vital Signs (Past 12 Hours) Vital Signs Temp Pulse Resp BP Pulse Ox O2 Del Method O2 Flow Rate 05/31/23 15:34 36.4 C L 70 20 113/78 93 Oxymask 5.0 05/31/23 12:13 36.7 C 80 20 102/60 96 Nasal Cannula 5.0 05/31/23 08:27 Oxymask 6 05/31/23 06:29 36.6 C 67 18 113/63 94 Oxymask 6.0 05/31/23 04:21 37.0 C 64 16 111/64 96 Oxymask 6.0 Laboratory Results 05/31/23 06:12 05/31/23 06:12 PG Care Time/CCT Total # of Minutes Spent Total Time Spent with Patient: Total time spent is greater than 50% in coordination of care (as documented) at patient's floor/unit and/or counseling patient: Coding Level of Care Code 06398 SUB INP/OBS CARE 3/50MIN Diagnoses Pulmonary embolism I26.99 Deep vein thrombosis of right lower extremity I82.401 Acute kidney injury superimposed on chronic kidney disease N17.9; N18.9 Chronic deep vein thrombosis (DVT) of left peroneal vein I82.552 Pneumonia of both lower lobes due to Pseudomonas species J15.1 Recurrent oral ulcers K13.79 PAF (paroxysmal atrial fibrillation) I48.0 Adenocarcinoma of left lung, stage 3 C34.92 Centrilobular emphysema J43.2 COPD type: emphysema Emphysema type: centrilobular Herpetic keratoconjunctivitis B00.52 Chronic systolic CHF (congestive heart failure) I50.22 (9) 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
[2023-05-31] MEDS: MIRTAZAPINE TAB 15 MG TAB PO SCH (21:02)
[2023-06-01 02:12] LABS: Basophils # (auto) 0.07 K/uL (0.00-0.20); Basophils % (auto) 0.6 %; Eosinophils # (auto) 0.27 K/uL (0.00-0.50); Eosinophils % (auto) 2.4 %; Hematocrit (blood only) 26.9 % (42.0-52.0); Hemoglobin 8.8 g/dl (14.0-18.0); Immature Granulocytes # (auto) 0.52 K/uL (0.01-0.20); Immature Granulocytes % (auto) 4.6 %; Lymphocytes # (auto) 1.44 K/uL (1.20-3.40); Lymphocytes % (auto) 12.7 %; Mean Corpuscular Hemoglobin 30.3 pg (25.0-34.0); Mean Corpuscular Hgb Conc 32.7 g/dL (32.0-36.0); Mean Corpuscular Volume 92.8 fL (80.0-100.0); Monocytes # (auto) 1.37 K/uL (0.11-0.59); Monocytes % (auto) 12.1 %; Neutrophils # (auto) 7.69 K/uL (1.40-6.50); Neutrophils % (auto) 67.6 %; Platelet Count 208 K/uL (130-400); RDW Standard Deviation 55.7 fL (36.4-46.3); White Blood Count 11.36 K/ul (4.8-10.8)
[2023-06-01 02:27] LABS: BUN Creatinine Ratio 21.7 (10-20); Calcium 9.5 mg/dl (8.6-10.3); Creatinine Clr Calc Pharmacy 30.5 ml/min; Est GFR (African American) 39.1 ml/min; Est GFR (Non-African American) 33.7 ml/min; Magnesium 2.1 mg/dl (1.7-2.4); Potassium 3.9 mmol/L (3.5-5.1)
[2023-06-01 02:41] LABS: ANTI-Xa, UFH(UnfractionatedHep 0.74 IU/ml (0.3-0.7)
--- NOTE | 2023-06-01 07:39 | Hospitalist Progress Note ---
Date of Service June 01, 2023 Assessment & Plan (1) Pulmonary embolism: Plan: 78 y/o with stage 3 NSCLC left lung, HFrEF, afib who has been in hospital frequently since winter 2023 when he was admitted for septic shock from pseudomonas bacteria and pneumonia following first round of chemotherapy. Was treated with cefepime, home with home infusion for two week course. Readmitted with respiratory failure and severe oral bleeding probably from large ulcer on hard palate while on apixaban. Had bronchoscopy without evidence of bleeding from lungs, lots of blood in oropharynx however. Also had scope from ENT and OMFS consulted to treat palate ulcer. During that admission ID consulted and recommended a further month of AV antibiotics, cultures grew castellon-sensitive pseudomonas and discharged on IV cefepime. Multiple attempts to anticoagulate that admission resulted in significant oral bleeding so not discharged on anticoagulation. Vascular surgery consulted and did not recommend IVC filter because only L chronic appearing peroneal DVT at that time. Readmitted a few days later with R lower chest pain and found to have new R calf DVT. Has had several DVTs. Presumed pulmonary embolism with R lower chest pleuritic pain, setting of acute RLE DVT and hypercoagulable state due to malignancy, mild increase in hypoxia cannot get CTA safely with current ABHISHEK, also abnormal CXR so VQ will not be diagnostic. Also, imaging will not record changer Was not on anticoagulation because developed oral bleeding despite multiple attempts at AC over the past several weeks Oral ulcer has improved some even since Thursday. no sig bleeding so far, ulcer is healing, continue heparin today and change to apixaban tonight. IVC filter is an option (though a poor one) if he cannot be anticoagulated - he will inevitably clot off his legs below the filter, has had three DVTs recently (2) Deep vein thrombosis of right lower extremity: Plan: multiple calf veins: popliteal, peroneal and posterior tibial veins, new since last LE duplex Wednesday 05/24. Also has chronic appearing L peroneal DVT and had proximal R DVT last month which resolved (or embolized) with some amount of heparin anticoagulation. see above (3) Acute kidney injury superimposed on chronic kidney disease: Plan: Baseline Cr 1.2. Cr improved to 1.9 - same overnight Likely prerenal ABHISHEK, IV fluids given initially. Continue holding lasix. Transfused 05/30 Valacyclovir also can be associated with ABHISHEK -AM BMP hypomagnesemia, replaced, 2.1 on 05/31 (4) Chronic deep vein thrombosis (DVT) of left peroneal vein: Plan: noted last admission. Dr Manuel reviewed imaging and appearance consistent with chronic. see above (5) Pneumonia of both lower lobes due to Pseudomonas species: Plan: Has had severe pseudomonas pneumonia, bacteremia early in course, and acute respiratory failure from this Has home O2 Rx for 3L at rest and 6L with activity. On discharge last week was 2L at rest and 4L with activity. CXR reviewed - by my interpretation of the film and radiologist report it is improved, with some clearing in L base that matches with my exam (now has breath sounds in L base, previously did not) O2 req back down to previous 3L, WBC down to 10, no fever. I do not think the pneumonia is worse -resume cefepime per previous ID recs, continue through 06/07 as planned -sputum culture pending to check sensis, 05/12 was castellon-sensitive -flutter valve -CXR 05/31 report and film reviewed - unchanged -pulmonary consult per patient/family request - reviewed, no new recommendations, not clear he'll be out of hospital by then but has pulm appt 06/[address] Khan. (6) Recurrent oral ulcers: Plan: Has had severe persistent ulcer roof of mouth. Viral swab was negative for HSV 1/[address] Rae has consulted, cauterized with silver nitrate, and recommended topical treatments - continue Continue triamcinolone acetonide/Kenalog Orabase and chlorhexadine -follow up with Dr. Rae and his dentist -improving (7) PAF (paroxysmal atrial fibrillation): Plan: Continue amiodarone for rate control Anticoagulation as tolerated (8) Adenocarcinoma of left lung, stage 3: Plan: Followed by Dr. Roque Had one cycle of chemo and developed septic shock from pseudomonas bacteremia and pneumonia, has not recovered well enough yet for further chemo (9) Chronic obstructive pulmonary disease: Plan: Duoneps scheduled and PRN. Not in exacerbation (10) Herpetic keratoconjunctivitis: Plan: L eye. Seen by his optho outpatient last week -continue valacyclovir, renally dosed to 1000 mg daily -continue trifluridine drops and gancyclovir gel - has from own supply, ordered (11) Chronic systolic CHF (congestive heart failure): Plan: Euvolemic to dry Plan Anemia - related to slow blood loss from oral ulcer, phlebotomy. Last transfusion was 1 unit 05/10. Hgb drifted down to 7.2 -transfusion 1u rbc on 05/30 with improvement in Hg to 8.8 DVT ppx - anticoagulated Updated his at bedside 05/29-05/31 Admission and Anticipated Discharge Date Admission Date: May 29, 2023 Subjective coughed sputum for culture. MO unchanged Mild pleuritic R lower chest pain unchanged Leet/ankle edema unchanged No bleeding from oral ulcer, had pink sputum Physical Exam 2 Physical Exam: PHYSICAL EXAMINATION Last 24h vital signs reviewed, see documentation in flowsheet General: comfortable appearing, no distress, sitting in chair exam unchanged 05/31: HEENT: Normocephalic, atraumatic, pupils round and equal, sclerae anicteric, no conjunctival injection, moist mucus membranes oral hard palate ulcer with small eschar improved, no active bleeding, shallow ulcerations, evidence of healing Lungs: Normal respiratory effort. Bibasilar crackles. Diminished L base but breath sounds now present which is an improvement. No wheezing Heart: Regular rate and rhythm, no murmurs. No JVD Abdomen: Soft, nontender, nondistended. Bowel sounds present. Extremities: Warm, dry, well-perfused. 1+ extremity edema - ankles/feet only, unchanged Neuro: Alert and oriented x 4, face symmetric, moves 4 extremities well Psych: Normal affect and behavior Results & Data Results & Data Vital Signs (Past 12 Hours) Vital Signs Temp Pulse Pulse Resp BP BP Pulse Ox 06/01/23 04:05 36.9 C 65 16 109/64 94 05/31/23 23:57 36.6 C 59 L 14 125/71 98 05/31/23 22:59 36.6 C 57 L 14 121/68 98 05/31/23 22:00 59 L 05/31/23 21:59 36.6 C 60 16 114/67 99 05/31/23 21:29 36.6 C 60 14 121/68 98 05/31/23 21:14 36.6 C 63 21 117/65 98 05/31/23 20:56 36.4 C L 65 22 116/68 90 05/31/23 20:30 O2 Del Method O2 Flow Rate 06/01/23 04:05 Oxymask 4.0 05/31/23 23:57 4 05/31/23 22:59 4 05/31/23 22:00 05/31/23 21:59 4 05/31/23 21:29 4 05/31/23 21:14 4 05/31/23 20:56 6 05/31/23 20:30 Oxymask 4 Laboratory Results 06/01/23 01:42 06/01/23 01:42 Diagnostic Findings today CXR - pending PG Care Time/CCT Total # of Minutes Spent Total Time Spent with Patient: Total time spent is greater than 50% in coordination of care (as documented) at patient's floor/unit and/or counseling patient: Coding Level of Care Code 97074 SUB INP/OBS CARE 3/50MIN Diagnoses Pulmonary embolism I26.99 Deep vein thrombosis of right lower extremity I82.401 Acute kidney injury superimposed on chronic kidney disease N17.9; N18.9 Chronic deep vein thrombosis (DVT) of left peroneal vein I82.552 Pneumonia of both lower lobes due to Pseudomonas species J15.1 Recurrent oral ulcers K13.79 PAF (paroxysmal atrial fibrillation) I48.0 Adenocarcinoma of left lung, stage 3 C34.92 Centrilobular emphysema J43.2 COPD type: emphysema Emphysema type: centrilobular Herpetic keratoconjunctivitis B00.52 Chronic systolic CHF (congestive heart failure) I50.22 (9) 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
--- NOTE | 2023-06-01 08:34 | XRay Report ---
XR chest 1V portable HISTORY: pneumonia, follow-up COMPARISON: Chest 05/29/2023. FINDINGS: No pneumothorax. Small bilateral pleural effusions and bibasilar densities persist. Small a irspace opacity within the left upper lobe is again noted. The cardiac silhouette is stable in size. No acute fractures. IMPRESSION: Bibasilar airspace opacities and small bilateral pleural effusions are again noted. ACT 112: Negative or not required by law. Electronically signed by: Neil Zeng M.D. 06/01/2023 8:33 AM
--- NOTE | 2023-06-01 09:04 | Pulmonary Consultation ---
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 Emphysema type: centrilobular Qualified Code(s): J43.2 - Centrilobular emphysema (4) Adenocarcinoma of left lung, stage 3: (5) Pleuritic chest pain: Plan IMPRESSION: 78-year-old male with an unfortunate past medical history of stage IIIb adenocarcinoma of the lung status post chemoradiation therapy, recurrent pneumonia, LEFT lower lobe cavitary lesion, recent pseudomonal bacteremia, chronic hypoxemia on supplemental oxygen, and COPD who presents to the hospital with worsening shortness of breath and pleuritic RIGHT-sided chest pain with presumed diagnosis of pulmonary embolism in the setting of known lower extremity DVT. RECOMMENDATIONS: 1. Presumed pulmonary emboli - Do not disagree with treating the patient as presumptive pulmonary embolism given his symptoms of pleuritic RIGHT-sided anterior chest pain which is not reproducible nature, slight increase in oxygen demand, and known lower extremity extensive DVT and a hypercoagulable patient with a cancer diagnosis. Patient is near his baseline oxygen requirement this time. BNP is only slightly elevated. Troponin was not elevated. Consideration for echocardiogram to assess for strain, however I would anticipate patient to be experiencing worsening dyspnea and more marked laboratory findings if this were to be the case. Regardless, ongoing anticoagulation as tolerated. Would recommend lifelong anticoagulation moving forward. 2. Cavitary lung lesion - Patient has undergone extensive evaluation at this time. Review of imaging does not demonstrate worsening findings at this point. Would agree with continuation of patient's current management as previously outlined by infectious disease including completion of course of cefepime as previously suggested. 3. Hypoxemia - Patient is near his baseline oxygen requirement at this time. 4. COPD - Patient not bronchospastic on exam today. Continue with patient's maintenance inhalers as you are. Thank you for allowing us participate in the care of this patient. No further pulmonary recommendations at this time. Supervising Physician Co-Signing Physician Notes I saw and evaluated the patient with Ankit Holliday PA-C, and agree with findings and plan as documented in the note. 78-year-old patient presented to the hospital with shortness of breath and hemoptysis Past medical history of lung cancer on chemotherapy Patient recently had bronchoscopy done for left lower lobe cavitary lesion which was negative for AFB. Cultures grew Pseudomonas for which she has been treated Pulmonary consulted for possibility of PE as well as hemoptysis At the time of examination patient was resting comfortably on the chair. He was saturating 93% on 3 L nasal cannula. He stated that he has been coughing up specks of blood which has been decreasing in intensity and frequency. Did have coughing episodes and he does have a feeling that he has phlegm. Denies any chest pain right now. No headache, no nausea, no vomiting Has been afebrile Constitutional: No acute distress HEENT: EOMI, PERRLA Respiratory system: Decreased air entry bilaterally, no wheeze, no rhonchi, po sitive crackles bilateral lower lobes CVS: S1-S2 positive, no murmurs or gallops Abdomen: Soft, nontender, nondistended, positive bowel sounds x4 Extremities: +2 pulses bilaterally radialis/ dorsalis pedis, no cyanosis, no edema Neuro: Awake alert oriented x3 Psych: Normal mood and affect G/U: No Crooks Plan: Chest x-ray does not show any significant change compared to 05/29/2023. Does have patchy opacities bilateral lower lobes. Given the patient already has evidence of acute DVT, no need for CTA of the chest as it will not change the course of treatment. For hemoptysis I would recommend guaifenesin-DM to be used [id number]. Avoid flutter valve or hypertonic saline nebulized for the time being. Continue with heparin drip for 24 hours. If the patient's hemoglobin is stable can transition to either Lovenox or DOACs. Please note the above document was generated using voice recognition software. It may contain grammatical, syntax or spelling errors.Any formal questions or concerns about the content, text or information contained within the body of this dictation should be directly addressed to the provider for clarification. History of Present Illness Reason for Consultation: respiratory failure, pneumonia, PE, readmitted Requesting Physician: Dr. Beltran Attending Physician: Yue Beltran MD History of Present Illness Patient is a 78-year-old male with a significant past medical history of stage IIIb adenocarcinoma of the lung status post chemoradiation therapy, recent pseudomonal bacteremia LEFT lower lobe cavitary lesion of the lung, ongoing hypoxemia, and recurrent hemoptysis who presented to the emergency department after recent discharge from this institution with worsening dyspnea and complaints of pleuritic RIGHT-sided chest discomfort. Patient uses between 3 and 6 L nasal cannula at his baseline. He states that he is required 4 L continuously most recently. He notes that his main change is mild increase in shortness of breath and pleuritic RIGHT anterior chest discomfort. The patient is noted to have an extensive lower extremity DVT which was confirmed with ultrasound during this visit. Patient is presumed to have pulmonary embolus in addition to his other pulmonary complications. Pulmonary medicine consulted by primary hospitalist service. Allergies Allergy/AdvReac Type Severity Reaction Status Date / Time JUAN R Inhibitors AdvReac Intermediate hyperkalemi Verified 05/29/23 17:22 a Home Medications Medication Instructions Recorded Confirmed Type ascorbate calcium (vitamin C) 500 500 mg PO QAM 09/23/18 05/29/23 History mg tablet aspirin 81 mg tablet,delayed 81 mg PO QAM 09/23/18 05/29/23 History release (Adult Aspirin Regimen) vitamin E succinate 268 mg (400 400 units PO QAM 11/30/18 05/29/23 History unit) tablet atorvastatin 20 mg tablet (Lipitor) 20 mg PO PM 90 days #90 tabs 06/24/22 05/29/23 Rx cholecalciferol (vitamin D3) 50 50 mcg PO QPM 01/20/23 05/29/23 History mcg (2,000 unit) capsule (Vitamin D3) prochlorperazine maleate 10 mg 10 mg PO Q8H PRN Nausea 03/18/23 05/29/23 History tablet (Compazine) fluticasone fur. 100 mcg-umeclid 1 inh inhalation DAILY #60 ea 03/31/23 05/29/23 Rx 62.5 mcg-vilant 25 mcg inhalat.powder (Trelegy Ellipta) ondansetron 8 mg disintegrating 8 mg PO Q8 PRN Nausea And Vomiting 04/21/23 05/29/23 History tablet apixaban 5 mg tablet (Eliquis) 5 mg PO BID #60 tabs 05/01/23 05/29/23 Rx Oxygen Home E0424 #1 L 05/05/23 05/07/23 Rx furosemide 20 mg tablet (Lasix) 20 mg PO QAM #30 tabs 05/05/23 05/29/23 Rx magnesium oxide 400 mg (241.3 mg 400 mg PO QAM #30 tabs 05/05/23 05/29/23 Rx magnesium) tablet cefepime 2 gram solution for 2 g IV Q12H pseudomonas pneumonia 05/27/23 05/29/23 Rx injection chlorhexidine gluconate 0.12 % 15 ml MT BID mouth ulcer #473 mL 05/27/23 05/29/23 Rx mouthwash sodium chloride 0.65 % nasal spray 2 spray NA Q1H PRN dry nasal 05/27/23 05/29/23 Rx aerosol (Saline Mist) passages #0 mL triamcinolone acetonide 0.1 % 1 applic MT TID mouth ulcer #5 05/27/23 05/29/23 Rx dental paste grams albuterol sulfate 90 mcg/actuation 2 inh inhalation QID PRN shortness 05/28/23 05/29/23 Rx aerosol inhaler of breath or wheezing #8.5 grams amiodarone 200 mg tablet 200 mg PO DAILY 05/28/23 05/29/23 History potassium chloride 10 mEq 10 meq PO DAILY #30 tabs 05/28/23 05/29/23 Rx tablet,extended release valacyclovir 1 gram tablet 1,000 mg PO TID 05/29/23 05/29/23 History Patient History Medical History (Updated 06/01/23 @ 10:23 by Ankit Holliday PA-C) Pulmonary embolism Pneumonia of both lower lobes due to Pseudomonas species Weakness of voice Diarrhea Multifocal pneumonia Chronic diastolic heart failure Chronic obstructive pulmonary disease Lower extremity edema BPH (benign prostatic hyperplasia) Hyperlipidemia Lung cancer Abdominal aortic aneurysm s/p repair 2015 Multiple pulmonary nodules determined by computed tomography of lung BPH (benign prostatic hyperplasia) Kidney stones hx PVC (premature ventricular contraction) on occasion Hypertension Diverticulosis Hyperlipemia COPD (chronic obstructive pulmonary disease) well controlled per pt > no res inh use Surgical History History of aortic aneurysm repair endovascular > [facility] [place] > 2016 > follows with [facility] cardiology. Has to go for scan on 02/06/23 to check for "leak around the stent" as evidence of size increase per recent ultrasound [facility]. History of cataract surgery bilat History of tooth extraction dental implants History of lithotripsy History of inguinal hernia repair left x 1, right x 2. H/O colonoscopy 07/2020 repeat 5 years Family History Father Colon cancer Colorectal cancer Family/Other Heart disease Hypertension Mother Stroke Denies family history of Ovarian cancer Prostate cancer Myocardial infarction Breast cancer Social History Smoking Status: Former smoker Tobacco Type: Cigarettes Age Started Using Tobacco: 32; packs per day: 0.5; Cigarettes Per Day: 10 cigs per day; Second Hand Exposure: No; Do You Dip or Chew Tobacco: No; Tobacco Cessation Education Requested by Patient: No Hx Alcohol Use: No Hx Substance Use: No Preferred Language: Irish Communication Ability: Effective Visual Impairment: Limited Hearing Ability: Normal Retirement Benefits Specialist Required: No Beliefs That Will Affect Care: None marital status: Current Living Situation: Spouse Current Living Situation Comment: lives with current occupational status: 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 All else were negative. Physical Exam Physical Exam: VITAL SIGNS - Vital signs and nursing notes were reviewed. GENERAL - 78-year-old male appearing his stated age who is in no acute distress. Communicates well with provider and answers questions appropriately. SKIN - Without rashes or lesions. NOSE - Midline and without cyanosis. MOUTH/OROPHARYNX - Without perioral cyanosis. NECK - Neck with FROM. LUNGS - Chest wall evaluation demonstrates normal chest wall A:P diameter. No reproducible chest wall tenderness to palpation. No pain with deep inspiration appreciated against examiner's force. Auscultation reveals coarse breath sounds at the LEFT sided lung base. CARDIAC - RRR with S1/S2. No murmur, rubs, or gallops appreciated. EXTREMITIES - Nail clubbing not present. No peripheral cyanosis. No pretibial edema present. +3/5 radial palpated throughout. PSYCH - A&Ox3 and cooperates fully with examiner. Pt is very pleasant and interacts well with examiner. Results & Data Results & Data Vital Signs (Past 12 Hours) Vital Signs Temp Pulse Pulse Resp BP BP Pulse Ox 06/01/23 07:42 36.5 C 69 20 125/72 91 06/01/23 04:05 36.9 C 65 16 109/64 94 05/31/23 23:57 36.6 C 59 L 14 125/71 98 05/31/23 22:59 36.6 C 57 L 14 121/68 98 05/31/23 22:00 59 L 05/31/23 21:59 36.6 C 60 16 114/67 99 05/31/23 21:29 36.6 C 60 14 121/68 98 05/31/23 21:14 36.6 C 63 21 117/65 98 O2 Del Method O2 Flow Rate 06/01/23 07:42 Oxymask 4.0 06/01/23 04:05 Oxymask 4.0 05/31/23 23:57 4 05/31/23 22:59 4 05/31/23 22:00 05/31/23 21:59 4 05/31/23 21:29 4 05/31/23 21:14 4 PG Care Time/CCT Total # of Minutes Spent Total Time Spent with Patient: Total time spent is greater than 50% in coordination of care (as documented) at patient's floor/unit and/or counseling patient: Coding Level of Care Code 43054 INT INP/OBS CARE 3/75MIN Diagnoses Cavitary lesion of lung J98.4 Pseudomonas aeruginosa infection A49.8 Centrilobular emphysema J43.2 COPD type: emphysema Emphysema type: centrilobular Adenocarcinoma of left lung, stage 3 C34.92 Pleuritic chest pain R07.81
[2023-06-01 11:08] LABS: ANTI-Xa, UFH(UnfractionatedHep 0.78 IU/ml (0.3-0.7)
[2023-06-01] MEDS ORDERED: APIXABAN 5 MG TABLET PO SCH (21:00)
[2023-06-01] MEDS: APIXABAN 5 MG TABLET PO SCH (21:22)
[2023-06-01] MEDS: guaiFENesin/DEXTROM SYRUP 200MG/20MG 10ML UDC PO SCH (21:26)
[2023-06-02 06:35] LABS: Hematocrit (blood only) 28.6 % (42.0-52.0); Mean Corpuscular Hemoglobin 29.4 pg (25.0-34.0); Mean Corpuscular Hgb Conc 31.5 g/dL (32.0-36.0); Mean Corpuscular Volume 93.5 fL (80.0-100.0); Mean Platelet Volume 9.9 fL (9.4-12.4); Platelet Count 204 K/uL (130-400); RDW Coefficient of Variation 17.4 % (11.5-14.5); RDW Standard Deviation 58.5 fL (36.4-46.3); Red Blood Count 3.06 M/uL (4.70-6.10)
[2023-06-02 06:59] LABS: BUN Creatinine Ratio 19.9 (10-20); Calcium 9.7 mg/dl (8.6-10.3); Creatinine Clr Calc Pharmacy 30.8 ml/min; Est GFR (African American) 39.8 ml/min; Est GFR (Non-African American) 34.4 ml/min; Potassium 3.8 mmol/L (3.5-5.1)
--- NOTE | 2023-06-02 07:50 | Pulmonology Progress Note ---
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 Emphysema type: centrilobular Qualified Code(s): J43.2 - Centrilobular emphysema (4) Adenocarcinoma of left lung, stage 3: (5) Pleuritic chest pain: Plan IMPRESSION: 78-year-old male with an unfortunate past medical history of stage IIIb adenocarcinoma of the lung status post chemoradiation therapy, recurrent pneumonia, LEFT lower lobe cavitary lesion, recent pseudomonal bacteremia, chronic hypoxemia on supplemental oxygen, and COPD who presents to the hospital with worsening shortness of breath and pleuritic RIGHT-sided chest pain with presumed diagnosis of pulmonary embolism in the setting of known lower extremity DVT. RECOMMENDATIONS: 1. Presumed pulmonary emboli - Do not disagree with treating the patient as presumptive pulmonary embolism given his symptoms of pleuritic RIGHT-sided anterior chest pain which is not reproducible nature, slight increase in oxygen demand, and known lower extremity extensive DVT and a hypercoagulable patient with a cancer diagnosis. Patient is at his baseline oxygen requirement this time. Would recommend lifelong anticoagulation moving forward. Patient is already established with heme/onc. 2. Cavitary lung lesion - Patient has undergone extensive evaluation at this time. Review of imaging does not demonstrate worsening findings at this point. Would agree with continuation of patient's current management as previously outlined by infectious disease including completion of course of cefepime as previously suggested. 3. Hypoxemia - At his baseline at this point. 4. COPD - Patient not bronchospastic on exam today. Continue with patient's maintenance inhalers as you are. Thank you for allowing us participate in the care of this patient. Pulmonary medicine will sign off at this time. Admission and Anticipated Discharge Date Admission Date: May 29, 2023 Supervising Physician Co-Signing Physician Notes I saw and evaluated the patient with Ankit Holliday PA-C, and agree with findings and plan as documented in the note. Patient seen and examined at bedside. No acute distress, however symptoms overnight He was saturating 94% on 2 L nasal cannula, I went down to 1 L He stated that he is feeling better compared to yesterday. His pleuritic chest pain has significantly decreased in intensity. He did bring up a little bit of blood tinged phlegm which is also decreased in intensity and frequency Has been afebrile No nausea vomiting Fair appetite Constitutional: No acute distress HEENT: EOMI, PERRLA Respiratory system: Decreased air entry bilaterally, no wheeze, no rhonchi, positive crackles bilateral lower lobes CVS: S1-S2 positive, no murmurs or gallops Abdomen: Soft, nontender, nondistended, positive bowel sounds x4 Extremities: +2 pulses bilaterally radialis/ dorsalis pedis, no cyanosis, no edema Neuro: Awake alert oriented x3 Psych: Normal mood and affect G/U: No Crooks Plan: H&H is stable Given the patient already has evidence of acute DVT, no need for CTA of the chest as it will not change the course of treatment. For hemoptysis I would recommend guaifenesin-DM to be used [id number] for 3-5 days and then PRN. Avoid flutter valve or hypertonic saline nebulized for the time being. Continue with DOACs. No further recommendation from pulmonary perspective, will sign off Please call directly with any questions Please note the above document was generated using voice recognition software. It may contain grammatical, syntax or spelling errors.Any formal questions or concerns about the content, text or information contained within the body of this dictation should be directly addressed to the provider for clarification. Subjective Patient seen and evaluated. He offers no complaints today. He is breathing well. No complaints of pleuritic pain at this point. Review of Systems 2 Review of Systems: A complete 10 point review of systems was reviewed with the patient with pertinent positives and negatives as per history of present illness. All else were negative. Physical Exam 2 Physical Exam: VITAL SIGNS - Vital signs and nursing notes were reviewed. GENERAL - 78-year-old male appearing his stated age who is in no acute distress. Communicates well with provider and answers questions appropriately. LUNGS - Chest wall evaluation demonstrates normal chest wall A:P diameter. No reproducible chest wall tenderness to palpation. No pain with deep inspiration appreciated against examiner's force. Auscultation reveals coarse breath sounds at the LEFT sided lung base. CARDIAC - RRR with S1/S2. No murmur, rubs, or gallops appreciated. PSYCH - A&Ox3 and cooperates fully with examiner. Pt is very pleasant and interacts well with examiner. Results & Data Results & Data Vital Signs (Past 12 Hours) Vital Signs Temp Pulse Pulse Resp BP Pulse Ox O2 Del Method 04/23/24 02:23 36.9 C 69 14 128/71 91 Oxymask 06/01/23 23:38 72 06/01/23 23:00 36.6 C 68 13 147/73 H 94 Oxymask 06/01/23 21:09 Nasal Cannula O2 Flow Rate 06/02/23 02:23 2.0 06/01/23 23:38 06/01/23 23:00 2.0 06/01/23 21:09 4 Laboratory Results 06/02/23 05:43 06/02/23 05:43 PG Care Time/CCT Total # of Minutes Spent Total Time Spent with Patient: Total time spent is greater than 50% in coordination of care (as documented) at patient's floor/unit and/or counseling patient: Coding Level of Care Code 14036 SUB INP/OBS CARE 2/35MIN Diagnoses Cavitary lesion of lung J98.4 Pseudomonas aeruginosa infection A49.8 Centrilobular emphysema J43.2 COPD type: emphysema Emphysema type: centrilobular Adenocarcinoma of left lung, stage 3 C34.92 Pleuritic chest pain R07.81
[2023-06-02] MEDS: NYSTATIN SUSP 500,000 U/5 ML UDC PO SCH (17:55)
--- NOTE | 2023-06-02 19:23 | Hospitalist Progress Note ---
Date of Service June 02, 2023 Assessment & Plan (1) Pulmonary embolism: Plan: Presumed pulmonary embolism on right given his new right lower pleuritic chest pain in the setting of acute RLE DVT. Cannot get CTA chest safely with current ABHISHEK. However, obtaining CTA won't change his overall management. Simply treat with anticoagulation as in #2 below. If he rebleeds from oral cavity- especially if heavy- would need to reconsult vascular surgery for consideration of IVC filter. For now proceed forward cautiously with anticoagulation. (2) Deep vein thrombosis of right lower extremity: Plan: Multiple RLE calf veins: popliteal, peroneal and posterior tibial veins, new since 05/17/23. Also has chronic appearing L peroneal DVT. Previous L common femoral DVT and superficial femoral DVT resolved. Tolerated heparin drip earlier in admission; transitioned to PO Eliquis today. Plan is 10mg BID x 7 days, then 5mg BID thereafter - will need lifelong anticoagulation given his cancer, PAF, etc. (3) Acute kidney injury superimposed on chronic kidney disease: Plan: Baseline Cr 1.2. Peak Cr 2.3 at time of admission. Improving slowly - now 1.8 today. ABHISHEK 2nd to hypotension/bleeding/volume depletion? Lasix on hold. BMP in am. (4) Chronic deep vein thrombosis (DVT) of left peroneal vein: Plan: found during previous admission seen by vascular surgery, Dr Manuel, to determine if patient needed IVC Filter since his anticoagulation was being placed on hold frequently due to oral cavity bleeding IVC filter deferred during previous admission was on heparin drip this admission -- transitioned to PO Eliquis today albeit cautiously (5) Pneumonia of both lower lobes due to Pseudomonas species: Plan: Cont cefepime IV, end-date 06/08/23. Repeat sputum culture this admission negative for any new pathogen. Clinically his pneumonia is resolving. Appreciate pulmonary consult - no new recs other than avoiding flutter valve for now due to pleuritic chest pain and using robitussin-DM scheduled. Will need pulmonary f/u post-discharge (was to see Dr. Khan on 06/04 as outpatient - likely to need rescheduling) (6) Recurrent oral ulcers: Plan: Has had severe persistent ulcer on the palate dating back to 04/2023 in the setting of severe neutropenia, thrush, etc. During previous admission had multiple episodes of oral cavity bleeding requiring interruption of systemic anticoagulation. Seen by ENT (Dr Whitaker) and Oral Surgery (Dr Rae). Viral swab was negative for HSV 1/2 last week during prior admission. During previous admission Dr. Rae cauterized the ulcer with silver nitrate. Had re-bleeding today - first time he has had bleeding from the ulcer - since admission. Fortunately was self limited. Continue triamcinolone acetonide/Kenalog Orabase and chlorhexadine rinse BID. Continue salt water swishes. If the bleeding recurs will re-consult Dr Rae. (7) PAF (paroxysmal atrial fibrillation): Plan: Continue amiodarone Eliquis started today for acute and chronic DVT as well as PAF Today on tele - either PAT vs rate-controlled a.fib vs other (8) Adenocarcinoma of left lung, stage 3: Plan: Followed by Dr. Roque - CCP Had one cycle of chemo early April 2023 Complicated by severe pancytopenia & neutropenia and septic shock from pseudomonas bacteremia and pneumonia Has not resumed chemo or XRT since that time due to recurrent illness and recurrent hospitalizations Was to see Dr Roque on 06/02 as outpatient to discuss timing of future chemo but unfortunately was re-admitted (9) Chronic obstructive pulmonary disease: Plan: Duoneps scheduled and PRN. Not in exacerbation at this time defer on systemic steroids cont NC O2 - sats in low 90s acceptable (10) Herpetic keratoconjunctivitis: Plan: seen by Dr Shaver, ophthalmology last week dx with left eye herpetic keratoconjunctivitis by report remains on valacyclovir, renally dosed, at 1000 mg daily continue trifluridine drops and gancyclovir gel - has from own supply from home (11) Chronic systolic CHF (congestive heart failure): Plan: 04/22/23 echo - EF 45-50% global hypokinesis at that time only edema is that of feet likely more so related to low albumin otherwise does not appear decompensated BPs have been too soft for initiation of beta melisa to follow with Eugenie Epperson in CHF clinic as outpatient lasix currently on hold (12) Acute blood loss anemia: Plan: 2nd blood loss from oral ulcers, phlebotomy, epistaxis (last admission) previous transfusion - 1 unit on 05/11/23 (prior admission) this admission - lowest hemoglobin - 7.2 s/p 1 unit PRBCs on 05/30 Hb today stable at 9 repeat H/H in am tomorrow due to more oral cavity bleeding today would benefit from check iron levels while here (13) Chronic hypoxic respiratory failure: Plan: has been on home O2 for some time now previously was requiring 3 L at rest and 6 with activity up until recently following last admission was down to 2 L at rest, 4 with activity reassess O2 requirements prior to discharge chronic resp failure 2nd to COPD, pseudomonas pneumonia, etc. (14) Candidiasis of mouth and esophagus: Plan: recurrent thrush mod-severe restart nystatin solution - 5cc QID swish/spit (15) Anorexia: Plan: multifactorial - lung ca, pneumonia, even swallowed blood from his oral cavity b leeding will affect appetite. started on remeron 7.5mg HS this admission and tolerating thus far. continue remeron HS. Plan updated at bedside today 06/01 needs PT/OT evals Admission and Anticipated Discharge Date Admission Date: May 29, 2023 Subjective NSR on monitor overnight then, this am, he had ?rate-controlled a.fib vs PAT low 100s by the time of my bedside visit he was back in NSR during the visit was at bedside he was sitting in the chair comfortably he had an episode of mouth bleeding this am - self-limited - after eating [employer] which his brought ate a breakfast hash brown and then had the mouth bleeding no epistaxis denies severe cough scant hemoptysis right sided pleuritic chest pain is improved appetite very poor has slept well the last 2 nights Review of Systems Review of Systems: gen - no fevers cv - pleuritic chest pain on right, none on left; no substernal cp; mild edema of feet pulm - ongoing cough but mild; denies dyspnea GI - no abd pain; stools are soft but no diarrhea Physical Exam Physical Exam: gen - sitting in chair, NAD, mild pallor, occasional cough mouth - ulceration anterior palate - the ulcer is overall smaller in comparison to my last visit with him about 8 days ago; there are multiple areas of scab/old blood due to prior bleeding earlier today; no vesicles; there is copious thrush plaques b/l buccal mucosa neck - no JVD heart - RRR, s1 s2, no murmur lungs - improved airation bases, no rales, CTA b/l, no increased work of breathing abd - soft NT ND BS+ ext - 1+ edema of feet/ankles, shins w/o edema; pulses 2+ b/l feet psych - a/o x 3 Results & Data Results & Data Vital Signs (Past 12 Hours) Vital Signs Temp Pulse Pulse Resp BP Pulse Ox O2 Del Method 06/02/23 19:11 36.7 C 77 18 112/71 93 Nasal Cannula 06/02/23 15:49 36.8 C 95 H 18 100/65 93 Nasal Cannula 06/02/23 12:00 36.7 C 91 H 22 95/74 L 94 Nasal Cannula 06/02/23 08:00 72 06/02/23 08:00 Nasal Cannula O2 Flow Rate 06/02/23 19:11 06/02/23 15:49 2.0 06/02/23 12:00 2.0 06/02/23 08:00 06/02/23 08:00 3 Laboratory Results Laboratory Results - last 24 hr 06/02/23 05:43 WBC 10.60 RBC 3.06 L Hgb 9.0 L Hct 28.6 L MCV 93.5 MCH 29.4 MCHC 31.5 L RDW Std Deviation 58.5 H RDW Coeff of Fany 17.4 H Plt Count 204 MPV 9.9 Sodium 136 Potassium 3.8 Chloride 106 Carbon Dioxide 24 Anion Gap 6 BUN 37 H Creatinine 1.86 H Est Cr Clr Drug Dosing 30.8 Est GFR ( Amer) 39.8 Est GFR (Non-Af Amer) 34.4 BUN/Creatinine Ratio 19.9 Glucose 92 Calcium 9.7 PG Care Time/CCT Total # of Minutes Spent Total Time Spent with Patient: Total time spent is greater than 50% in coordination of care (as documented) at patient's floor/unit and/or counseling patient: Coding Level of Care Code 81038 SUB INP/OBS CARE 3/50MIN Diagnoses Pulmonary embolism I26.99 Deep vein thrombosis of right lower extremity I82.401 Acute kidney injury superimposed on chronic kidney disease N17.9; N18.9 Chronic deep vein thrombosis (DVT) of left peroneal vein I82.552 Pneumonia of both lower lobes due to Pseudomonas species J15.1 Recurrent oral ulcers K13.79 PAF (paroxysmal atrial fibrillation) I48.0 Adenocarcinoma of left lung, stage 3 C34.92 Centrilobular emphysema J43.2 COPD type: emphysema Emphysema type: centrilobular Herpetic keratoconjunctivitis B00.52 Chronic systolic CHF (congestive heart failure) I50.22 Acute blood loss anemia D62 Chronic hypoxic respiratory failure J96.11 Candidiasis of mouth and esophagus B37.81; B37.0 Anorexia R63.0 (9) 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
[2023-06-03 06:05] LABS: Hematocrit (blood only) 28.5 % (42.0-52.0)
[2023-06-03 06:17] LABS: BUN Creatinine Ratio 21.4 (10-20); Calcium 9.7 mg/dl (8.6-10.3); Creatinine Clr Calc Pharmacy 29.7 ml/min; Est GFR (African American) 38.3 ml/min; Est GFR (Non-African American) 33.1 ml/min; Potassium 3.8 mmol/L (3.5-5.1)
[2023-06-03] MEDS: ASPIRIN 81 MG ECTAB PO SCH (09:07)
--- NOTE | 2023-06-03 12:36 | Pulmonology Progress Note ---
Date of Service June 03, 2023 Assessment & Plan (1) Cavitary lesion of lung: (2) Pseudomonas aeruginosa infection: (3) Chronic obstructive pulmonary disease: COPD type: emphysema Emphysema type: centrilobular Qualified Code(s): J43.2 - Centrilobular emphysema (4) Adenocarcinoma of left lung, stage 3: (5) Pleuritic chest pain: Plan IMPRESSION: 78-year-old male with an unfortunate past medical history of stage IIIb adenocarcinoma of the lung status post chemoradiation therapy, recurrent pneumonia, LEFT lower lobe cavitary lesion, recent pseudomonal bacteremia, chronic hypoxemia on supplemental oxygen, and COPD who presents to the hospital with worsening shortness of breath and pleuritic RIGHT-sided chest pain with presumed diagnosis of pulmonary embolism in the setting of known lower extremity DVT. RECOMMENDATIONS: -- Presumed pulmonary emboli - Do not disagree with treating the patient as presumptive pulmonary embolism given his symptoms of pleuritic RIGHT-sided anterior chest pain which is not reproducible nature, slight increase in oxygen demand, and known lower extremity extensive DVT and a hypercoagulable patient with a cancer diagnosis. Patient is at his baseline oxygen requirement this time. Would recommend lifelong anticoagulation moving forward. Patient is already established with heme/onc. Given the patient already has evidence of acute DVT, no need for CTA of the chest as it will not change the course of treatment. -- Cavitary lung lesion - Patient has undergone extensive evaluation at this time. Review of imaging does not demonstrate worsening findings at this point. Would agree with continuation of patient's current management as previously outlined by infectious disease including completion of course of cefepime as previously suggested. -- Hypoxemia - At his baseline at this point. -- COPD Continue with patient's maintenance inhalers as you are. Plan: Keep O2 saturation between 90-92%. For hemoptysis I would recommend guaifenesin-DM to be used [id number] for 3days and then PRN. Avoid flutter valve or hypertonic saline nebulized for the time being. Continue with DOACs. No further recommendation from pulmonary perspective, will sign off Please call directly with any questions Please note the above document was generated using voice recognition software. It may contain grammatical, syntax or spelling errors.Any formal questions or concerns about the content, text or information contained within the body of this dictation should be directly addressed to the provider for clarification. Admission and Anticipated Discharge Date Admission Date: May 29, 2023 Subjective Patient seen and examined at bedside. No acute distress, no signs overnight He was saturating 95% on 3 L nasal cannula. I went down to 2 L. Gradually titrated down even more to keep O2 saturation around 90 Had little bit of blood-tinged phlegm last night but nothing since then Pleuritic chest pain has significantly decreased in intensity. Fair appetite Review of Systems 2 Review of Systems: All systems reviewed & are unremarkable except as noted in Subjective Physical Exam 2 Physical Exam: Constitutional: No acute distress HEENT: EOMI, PERRLA Respiratory system: Decreased air entry bilaterally, no wheeze, no rhonchi, positive crackles bilateral lower lobes CVS: S1-S2 positive, no murmurs or gallops Abdomen: Soft, nontender, nondistended, positive bowel sounds x4 Extremities: +2 pulses bilaterally radialis/ dorsalis pedis, no cyanosis, no edema Neuro: Awake alert oriented x3 Psych: Normal mood and affect G/U: No Crooks Skin: no rashes, warm and dry Lymphatic: no cervical or axillary lymphadenopathy Results & Data Results & Data Vital Signs (Past 12 Hours) Vital Signs Temp Pulse Pulse Resp BP BP Pulse Ox 06/03/23 12:08 36.7 C 88 21 101/68 94 06/03/23 11:53 06/03/23 09:41 06/03/23 07:40 36.7 C 75 18 107/69 90 06/03/23 03:00 36.8 C 86 18 114/74 93 06/03/23 01:23 77 Pulse Ox Pulse Ox Pulse Ox Pulse Ox O2 Del Method O2 Flow Rate O2 Flow Rate 06/03/23 12:08 Nasal Cannula 2 06/03/23 11:53 94 91 90 85 L 6 06/03/23 09:41 Oxymask 2 06/03/23 07:40 Nasal Cannula 06/03/23 03:00 Nasal Cannula 2 06/03/23 01:23 O2 Flow Rate O2 Flow Rate O2 Flow Rate 06/03/23 12:08 06/03/23 11:53 3 3 6 06/03/23 09:41 06/03/23 07:40 06/03/23 03:00 06/03/23 01:23 Laboratory Results 06/03/23 05:43 06/03/23 05:43 PG Care Time/CCT Total # of Minutes Spent Total Time Spent with Patient: Total time spent is greater than 50% in coordination of care (as documented) at patient's floor/unit and/or counseling patient: Coding Level of Care Code 30036 SUB INP/OBS CARE 2/35MIN Diagnoses Cavitary lesion of lung J98.4 Pseudomonas aeruginosa infection A49.8 Centrilobular emphysema J43.2 COPD type: emphysema Emphysema type: centrilobular Adenocarcinoma of left lung, stage 3 C34.92 Pleuritic chest pain R07.81
[2023-06-03] MEDS: Nursing to Pharmacy Communication SCH (17:43)
[2023-06-03] MEDS: TRIAMCINOLONE ACET 0.1% ORABASE 5 GM TUBE MT SCH (18:46)
[2023-06-03] MEDS: NYSTATIN CR 15 GM TUBE EXT SCH (20:29)
--- NOTE | 2023-06-03 20:51 | Hospitalist Progress Note ---
Date of Service June 03, 2023 Assessment & Plan (1) Pulmonary embolism: Plan: Presumed pulmonary embolism on right given his new right lower pleuritic chest pain in the setting of acute RLE DVT. Cannot get CTA chest safely with current ABHISHEK. However, obtaining CTA won't change his overall management. Simply treat with anticoagulation as in #2 below. If he rebleeds from oral cavity- especially if heavy- would need to reconsult vascular surgery for consideration of IVC filter. For now proceed forward cautiously with anticoagulation in the form of Eliquis 10mg bid x 7 days then Eliquis 5mg BID thereafter starting 06/07. (2) Deep vein thrombosis of right lower extremity: Plan: Multiple RLE calf veins: popliteal, peroneal and posterior tibial veins, new since 05/17/23. Also has chronic appearing L peroneal DVT. Previous L common femoral DVT and superficial femoral DVT resolved. Tolerated heparin drip earlier in admission; transitioned to PO Eliquis today. Plan is 10mg BID x 7 days, then 5mg BID thereafter - will need lifelong anticoagulation given his cancer, PAF, etc. (3) Acute kidney injury superimposed on chronic kidney disease: Plan: Baseline Cr 1.2. Peak Cr 2.3 at time of admission. Improving slowly - although recovery has stalled at 1.9 today. ABHISHEK 2nd to hypotension/bleeding/volume depletion? Lasix on hold. BMP in am. If Cr does not improve or worsens then repeat CT a/p or renal u/s. (4) Chronic deep vein thrombosis (DVT) of left peroneal vein: Plan: found during previous admission seen by vascular surgery, Dr Manuel, to determine if patient needed IVC Filter since his anticoagulation was being placed on hold frequently due to oral cavity bleeding IVC filter deferred during previous admission was on heparin drip this admission -- transitioned to PO Eliquis yesterday cautiously (5) Pneumonia of both lower lobes due to Pseudomonas species: Plan: Cont cefepime IV, end-date 06/08/23. Repeat sputum culture this admission negative for any new pathogen. Clinically his pneumonia is resolving. Appreciate pulmonary consult - no new recs other than avoiding flutter valve for now due to pleuritic chest pain and using robitussin-DM scheduled. Will need pulmonary f/u post-discharge (was to see Dr. Khan on 06/04 as outpatient - will need rescheduling) (6) Recurrent oral ulcers: Plan: Has had severe persistent ulcer on the palate dating back to 04/2023 in the setting of severe neutropenia, thrush, etc. During previous admission had multiple episodes of oral cavity bleeding requiring interruption of systemic anticoagulation. Seen by ENT (Dr Whitaker) and Oral Surgery (Dr Rae). Viral swab was negative for HSV 1/2 last week during prior admission. During previous admission Dr. Rae cauterized the ulcer with silver nitrate. Had re-bleeding yesterday and again today (presumed, given the amount of scabbing/dried blood on the ulcer). Fortunately was self limited again. Continue triamcinolone acetonide/Kenalog Orabase and chlorhexadine rinse BID. Continue salt water swishes. Gained verbal permission to take photo of ulcer; sent via [facility] Correspondence to Dr Rae. Dr Rae will see in consult tomorrow. He is thinking of devising a dental appliance to help prevent bleeding? (7) PAF (paroxysmal atrial fibrillation): Plan: Continue amiodarone Check a TSH in am Eliquis for acute and chronic DVT as well as PAF Yesterday on tele - either PAT vs rate-controlled a.fib vs other NSR today on tele (8) Adenocarcinoma of left lung, stage 3: Plan: Followed by Dr. Roque - CCP Had one cycle of chemo early April 2023 Complicated by severe pancytopenia & neutropenia and septic shock from pseudomonas bacteremia and pneumonia Has not resumed chemo or XRT since that time due to recurrent illness and recurrent hospitalizations Was to see Dr Roque on 06/02 as outpatient to discuss timing of future chemo but unfortunately was re-admitted (9) Chronic obstructive pulmonary disease: Plan: Duoneps scheduled and PRN. Not in exacerbation at this time defer on systemic steroids cont NC O2 - sats in low 90s acceptable (10) Herpetic keratoconjunctivitis: Plan: seen by Dr Shaver, ophthalmology last week dx with left eye herpetic keratoconjunctivitis by report remains on valacyclovir, renally dosed, at 1000 mg daily continue trifluridine drops and gancyclovir gel - has from own supply from home no change in blurry vision thus far but external ocular exam looks intact (11) Chronic systolic CHF (congestive heart failure): Plan: 04/22/23 echo - EF 45-50% global hypokinesis at that time only edema is that of feet likely more so related to low albumin otherwise does not appear decompensated BPs have been too soft for initiation of beta melisa to follow with Eugenie Epperson in CHF clinic as outpatient lasix currently on hold (12) Acute blood loss anemia: Plan: 2nd blood loss from oral ulcers, phlebotomy, epistaxis (last admission) previous transfusion - 1 unit on 05/11/23 (prior admission) this admission - lowest hemoglobin - 7.2 s/p 1 unit PRBCs on 05/30 Hb again today stable at 9 repeat H/H in am tomorrow due to more bleeding today Fe levels today noted (13) Chronic hypoxic respiratory failure: Plan: has been on home O2 for some time now previously was requiring 3 L at rest and 6 with activity up until recently following last admission was down to 2 L at rest, 4 with activity reassess O2 requirements prior to discharge chronic resp failure 2nd to COPD, pseudomonas pneumonia, etc. (14) Candidiasis of mouth and esophagus: Plan: recurrent thrush mod-severe cont nystatin solution - 5cc QID swish/spit angular cheilitis - nystatin cream to corners of mouth (15) Anorexia: Plan: multifactorial - lung ca, pneumonia, even swallowed blood from his oral cavity bleeding will affect appetite. started on remeron 7.5mg HS this admission and tolerating thus far. continue remeron HS. Plan updated at bedside today PT/OT zoe Admission and Anticipated Discharge Date Admission Date: May 29, 2023 Subjective had an episode today of spitting up blood / ?hemoptysis he showed me the tissues he spit in to -- very small volume, 1-2 teaspoons at most he is not sure if the blood came from the roof of his mouth no juve epistaxis eating poorly sleeping well he is despondent about his overall state and the lack of progress with the bleeding issues LE edema is the same had quite a bit of coughing this am but minimal since denies any change in dyspnea Review of Systems Review of Systems: gen - no fevers or chills cv - pleuritic CP on right still present GI - no abd pain or N/V Physical Exam Physical Exam: gen - sitting in chair, NAD, looks same as previous mouth - ulceration anterior palate - the ulcer is nearly entirely covered by scab/old blood today; no vesicles; thrush plaques improved; angular cheilitis present corners of mouth nose - no epistaxis or blood neck - no JVD heart - RRR, s1 s2, no murmur lungs - improved airation bases, no rales, CTA b/l, no increased work of breathing abd - soft NT ND BS+ ext - 1+ edema of feet/ankles, shins w/o edema - no change; pulses 2+ b/l feet psych - a/o x 3 Results & Data Results & Data Vital Signs (Past 12 Hours) Vital Signs Temp Pulse Resp BP Pulse Ox Pulse Ox Pulse Ox 06/03/23 19:41 36.6 C 80 18 117/67 95 06/03/23 15:27 36.6 C 97 H 22 100/69 93 06/03/23 12:08 36.7 C 88 21 101/68 94 06/03/23 11:53 94 91 06/03/23 09:41 Pulse Ox Pulse Ox O2 Del Method O2 Flow Rate O2 Flow Rate O2 Flow Rate O2 Flow Rate 06/03/23 19:41 Oxymask 2 06/03/23 15:27 Nasal Cannula 2 06/03/23 12:08 Nasal Cannula 2 06/03/23 11:53 90 85 L 6 3 3 06/03/23 09:41 Oxymask 2 O2 Flow Rate 06/03/23 19:41 06/03/23 15:27 06/03/23 12:08 06/03/23 11:53 6 06/03/23 09:41 Laboratory Results Laboratory Results - last 24 hr 06/03/23 05:43 Hgb 9.0 L Hct 28.5 L Sodium 138 Potassium 3.8 Chloride 107 Carbon Dioxide 25 Anion Gap 6 BUN 41 H Creatinine 1.92 H Est Cr Clr Drug Dosing 29.7 Est GFR ( Amer) 38.3 Est GFR (Non-Af Amer) 33.1 BUN/Creatinine Ratio 21.4 H Glucose 109 H Calcium 9.7 Iron 21 L TIBC 157 L Unsaturated IBC 136 L Transferrin % Sat 13 L Ferritin 1388.0 H PG Care Time/CCT Total # of Minutes Spent Total Time Spent with Patient: Total time spent is greater than 50% in coordination of care (as documented) at patient's floor/unit and/or counseling patient: Coding Level of Care Code 13074 SUB INP/OBS CARE 2/35MIN Diagnoses Pulmonary embolism I26.99 Deep vein thrombosis of right lower extremity I82.401 Acute kidney injury superimposed on chronic kidney disease N17.9; N18.9 Chronic deep vein thrombosis (DVT) of left peroneal vein I82.552 Pneumonia of both lower lobes due to Pseudomonas species J15.1 Recurrent oral ulcers K13.79 PAF (paroxysmal atrial fibrillation) I48.0 Adenocarcinoma of left lung, stage 3 C34.92 Centrilobular emphysema J43.2 COPD type: emphysema Emphysema type: centrilobular Herpetic keratoconjunctivitis B00.52 Chronic systolic CHF (congestive heart failure) I50.22 Acute blood loss anemia D62 Chronic hypoxic respiratory failure J96.11 Candidiasis of mouth and esophagus B37.81; B37.0 Anorexia R63.0 (9) 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
[2023-06-04 07:45] LABS: Hematocrit (blood only) 27.1 % (42.0-52.0); Hemoglobin 8.7 g/dl (14.0-18.0)
[2023-06-04 07:58] LABS: Calcium 9.8 mg/dl (8.6-10.3); Creatinine Clr Calc Pharmacy 31.7 ml/min; Est GFR (African American) 40.6 ml/min; Est GFR (Non-African American) 35.1 ml/min; Potassium 4.2 mmol/L (3.5-5.1)
[2023-06-04 08:14] LABS: Thyroid Stimulating Hormone 2.313 uIu/ml (0.300-4.500)
[2023-06-04] MEDS ORDERED: Nursing to Pharmacy Communication SCH (08:15)
[2023-06-04] MEDS: GANCICLOVIR SCH (09:26)
--- NOTE | 2023-06-04 20:05 | Hospitalist Progress Note ---
Date of Service June 04, 2023 Assessment & Plan (1) Pulmonary embolism: Plan: Presumed pulmonary embolism on right given his new right sided pleuritic chest pain in the setting of acute RLE DVT. Cannot get CTA chest safely with current ABHISHEK. However, obtaining CTA won't change his overall management. Cont Eliquis 10mg BID x 7 days then 5mg BID thereafter. He will need lifelong treatment. If he rebleeds from oral cavity- especially if heavy- would need to reconsult vascular surgery for consideration of IVC filter. (2) Deep vein thrombosis of right lower extremity: Plan: Multiple RLE calf veins: popliteal, peroneal and posterior tibial veins, new since 05/17/23. Also has chronic appearing L peroneal DVT. Previous L common femoral DVT and superficial femoral DVT resolved. Tolerated heparin drip earlier in admission; transitioned to PO Eliquis earlier this week. Plan is 10mg BID x 7 days, then 5mg BID thereafter - will need lifelong anticoagulation given his cancer, PAF, etc. (3) Acute kidney injury superimposed on chronic kidney disease: Plan: Baseline Cr 1.2. Peak Cr 2.3 at time of admission. Improving slowly - although recovery has stalled at 1.8-1.9. ABHISHEK 2nd to hypotension/bleeding/volume depletion? Lasix on hold. BMP in am. If Cr does not improve or worsens then repeat CT a/p or renal u/s. (4) Chronic deep vein thrombosis (DVT) of left peroneal vein: Plan: found during previous admission seen by vascular surgery, Dr Manuel, to determine if patient needed IVC Filter since his anticoagulation was being placed on hold frequently due to oral cavity bleeding IVC filter deferred during previous admission was on heparin drip this admission -- transitioned to PO Eliquis and tolerating thus far (5) Pneumonia of both lower lobes due to Pseudomonas species: Plan: Cont cefepime IV, end-date 06/08/23. Repeat sputum culture this admission negative for any new pathogen. Clinically his pneumonia is resolving. Lungs clear again today. Appreciate pulmonary consult - no new recs other than avoiding flutter valve for now due to pleuritic chest pain and using robitussin-DM scheduled. Will need pulmonary f/u post-discharge. (6) Recurrent oral ulcers: Plan: Has had severe persistent ulcer on the palate dating back to 04/2023 in the setting of severe neutropenia, thrush, etc. During previous admission had multiple episodes of oral cavity bleeding requiring interruption of systemic anticoagulation. Seen by ENT (Dr Whitaker) and Oral Surgery (Dr Rae). Viral swab was negative for HSV 1/2 during prior admission. During previous admission Dr. Rae cauterized the ulcer with silver nitrate. Had re-bleeding 2x earlier this week but each was self limited. Continue triamcinolone acetonide/Kenalog Orabase TID and chlorhexadine rinse BID. Continue salt water swishes. Dr Rae reconsulted today; appreciate his input & expertise. (7) PAF (paroxysmal atrial fibrillation): Plan: Continue amiodarone TSH today wnl Eliquis for acute and chronic DVT as well as PAF (8) Adenocarcinoma of left lung, stage 3: Plan: Followed by Dr. Roque - CCP Had one cycle of chemo early April 2023 Complicated by severe pancytopenia & neutropenia and septic shock from pseudomonas bacteremia and pneumonia Has not resumed chemo or XRT since that time due to recurrent illness and recurrent hospitalizations Was to see Dr Roque on 06/02 as outpatient to discuss timing of future chemo but unfortunately was re-admitted (9) Chronic obstructive pulmonary disease: Plan: Duoneps scheduled and PRN. Not in exacerbation at this time defer on systemic steroids cont NC O2 - sats in low 90s acceptable (10) Herpetic keratoconjunctivitis: Plan: seen by Dr Shaver, ophthalmology last week dx with left eye herpetic keratoconjunctivitis by report I called & spoke with Dr Shaver today He advised to continue valtrex and gancyclovir gel - has from own supply from home Dr Shaver advises f/u with him shortly after hospital discharge (11) Chronic systolic CHF (congestive heart failure): Plan: 04/22/23 echo - EF 45-50% global hypokinesis at that time only edema is that of feet likely more so related to low albumin otherwise does not appear decompensated BPs have been too soft for initiation of beta melisa to follow with Eugenie Epperson in CHF clinic as outpatient lasix currently on hold due to ABHISHEK (12) Acute blood loss anemia: Plan: 2nd blood loss from oral ulcers, phlebotomy, epistaxis (last admission) previous transfusion - 1 unit on 05/11/23 (prior admission) this admission - lowest hemoglobin - 7.2 s/p 1 unit PRBCs on 05/30 Hb again today stable at 8.7 repeat H/H in am tomorrow (13) Chronic hypoxic respiratory failure: Plan: has been on home O2 for some time now previously was requiring 3 L at rest and 6 with activity up until recently following last admission was down to 2 L at rest, 4 with activity reassess O2 requirements prior to discharge chronic resp failure 2nd to COPD, pseudomonas pneumonia, etc. (14) Candidiasis of mouth and esophagus: Plan: recurrent thrush mod-severe improving cont nystatin solution - 5cc QID swish/spit angular cheilitis - nystatin cream to corners of mouth (15) Anorexia: Plan: multifactorial - lung ca, pneumonia, even swallowed blood from his oral cavity bleeding will affect appetite. started on remeron 7.5mg HS this admission and tolerating thus far. continue remeron HS. Plan updated at bedside today PT/OT evals appreciated if no recurrent bleeding next 48 hours - home ? Admission and Anticipated Discharge Date Admission Date: May 29, 2023 Subjective tele stable overnight no new issues no oral cavity bleeding or epistaxis overnight or today no hemoptysis denies new complaints still eating poorly vision left eye unchanged; denies ocular pain MO is at baseline at bedside during the visit Review of Systems Review of Systems: cv - pleuritic CP remains on right - but no worse than prior GI - no diarrhea or N/V pulm - cough but improving; mild sputum production only Physical Exam Physical Exam: gen - sitting in chair, NAD mouth - ulceration anterior palate - clean, with some healing tissue noted; no bleeding from ulcer; no scab or dried blood present - looks overall better today; no vesicles; thrush plaques improved; angular cheilitis present corners of mouth nose - no epistaxis neck - no JVD heart - RRR, s1 s2, no murmur lungs - CTA b/l; no rales or wheeze abd - soft NT ND BS+ ext - 1+ edema of feet/ankles, shins w/o edema - no change; pulses 2+ b/l feet psych - a/o x 3 Results & Data Results & Data Vital Signs (Past 12 Hours) Vital Signs Temp Pulse Resp BP BP Pulse Ox O2 Del Method 06/04/23 19:12 36.5 C 91 H 18 101/65 95 Oxymask 06/04/23 15:37 36.6 C 80 19 115/71 97 Oxymask 06/04/23 11:29 36.5 C 90 23 103/71 95 Oxymask O2 Flow Rate 06/04/23 19:12 2 06/04/23 15:37 2 06/04/23 11:29 2 Laboratory Results Laboratory Results - last 24 hr 06/04/23 07:06 Hgb 8.7 L Hct 27.1 L Sodium 139 Potassium 4.2 Chloride 108 H Carbon Dioxide 25 Anion Gap 6 BUN 44 H Creatinine 1.83 H Est Cr Clr Drug Dosing 31.7 Est GFR ( Amer) 40.6 Est GFR (Non-Af Amer) 35.1 BUN/Creatinine Ratio 24.0 H Glucose 99 Calcium 9.8 TSH 2.313 PG Care Time/CCT Total # of Minutes Spent Total Time Spent with Patient: Total time spent is greater than 50% in coordination of care (as documented) at patient's floor/unit and/or counseling patient: Coding Level of Care Code 38270 SUB INP/OBS CARE 2/35MIN Diagnoses Pulmonary embolism I26.99 Deep vein thrombosis of right lower extremity I82.401 Acute kidney injury superimposed on chronic kidney disease N17.9; N18.9 Chronic deep vein thrombosis (DVT) of left peroneal vein I82.552 Pneumonia of both lower lobes due to Pseudomonas species J15.1 Recurrent oral ulcers K13.79 PAF (paroxysmal atrial fibrillation) I48.0 Adenocarcinoma of left lung, stage 3 C34.92 Centrilobular emphysema J43.2 COPD type: emphysema Emphysema type: centrilobular Herpetic keratoconjunctivitis B00.52 Chronic systolic CHF (congestive heart failure) I50.22 Acute blood loss anemia D62 Chronic hypoxic respiratory failure J96.11 Candidiasis of mouth and esophagus B37.81; B37.0 Anorexia R63.0 (9) 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
[2023-06-04] MEDS: valACYclovir HCL 500 MG TABLET PO SCH (21:51)
[2023-06-05 06:15] LABS: Hematocrit (blood only) 26.6 % (42.0-52.0); Hemoglobin 8.3 g/dl (14.0-18.0)
[2023-06-05 06:47] LABS: Calcium 9.1 mg/dl (8.6-10.3); Est GFR (African American) 43.8 ml/min; Est GFR (Non-African American) 37.8 ml/min
--- NOTE | 2023-06-05 13:35 | Procedure Note ---
Procedure Note Date of Service June 05, 2023 Note I was asked to re evaluate Nilesh for his palatal ulcers. He was seen at bedside room 206 on June 03 and . The palate ulcer was not bleeding and the ulcer looked to be getting smaller and with early granulation tissue covering the denuded bone. With early granulation tissue light bleed is very common. With a Q-tip I palpated the area and only very scant bleeding would occur. I suggested that he keeps up with his fluid intake and avoid foods that are hard or crunchy. On ThursdayJune 04 I stopped up to see Nilesh. He told me he had some nasal bleeding from the left nostril due to picking his nose. The bleeding was light and spontaneous stopped with pressure. The palatal ulcer has a very light layer of young granulation tissue covering the bone. I told Nilesh that it is expected to have some light bleeding upon touching the palate due to the young and early granulation tissue. Hopefully, once the tissues mature the ulcer will finally resolve. Once Nilesh gets discharged I would like him to see his dentist so a palatal stent can be made to protect the palate and prevent his tongue and food rubbing over the area -- with the stent this will aid in healing. Hopefully, he can be discharged so I can coordinate with his dentist to get the appliance made. If bleeding occurs again, I have another idea of using a small piece of surgical as a protective dressing over the wound. I plan to see Nilesh early next week to check on his progress. Coding
[2023-06-05] MEDS: MUPIROCIN 2% OINT 22 GM TUBE EXT SCH (14:11)
--- NOTE | 2023-06-05 19:57 | Hospitalist Progress Note ---
Date of Service June 05, 2023 Assessment & Plan (1) Pulmonary embolism: Plan: Presumed pulmonary embolism on right given his new right sided pleuritic chest pain in the setting of acute RLE DVT. CTA chest has been deferred due to ABHISHEK. However, obtaining CTA won't change his overall management. Cont Eliquis 10mg BID x 7 days then 5mg BID thereafter. He will need lifelong treatment. The decrease to 5mg will be the evening of 06/08/23. Thus far the bleeding episodes from the mouth or nose have been very small volume/minimal this admission. (2) Deep vein thrombosis of right lower extremity: Plan: Multiple RLE calf veins: popliteal, peroneal and posterior tibial veins, new since 05/17/23. Also has chronic appearing L peroneal DVT. Previous L common femoral DVT and superficial femoral DVT resolved. Tolerated heparin drip earlier in admission; transitioned to PO Eliquis earlier this week. Plan is 10mg BID x 7 days, then 5mg BID thereafter - will need lifelong anticoagulation given his cancer, PAF, etc. Switch to 5mg BID PM of 06/08/23. (3) Acute kidney injury superimposed on chronic kidney disease: Plan: Baseline Cr 1.2. Peak Cr 2.3 at time of admission. Improving slowly - Cr today 1.7. ABHISHEK 2nd to hypotension/bleeding/volume depletion? Lasix on hold. BMP in am. If Cr does not improve or worsens then repeat CT a/p or renal u/s. (4) Chronic deep vein thrombosis (DVT) of left peroneal vein: Plan: found during previous admission seen by vascular surgery, Dr Manuel, to determine if patient needed IVC Filter since his anticoagulation was being placed on hold frequently due to oral cavity bleeding IVC filter deferred during previous admission was on heparin drip this admission -- transitioned to PO Eliquis and tolerating thus far with very low volume bleeding from nose or oral cavity; nothing large volume fortunately (5) Pneumonia of both lower lobes due to Pseudomonas species: Plan: Cont cefepime IV, end-date 06/08/23. Repeat sputum culture this admission negative for any new pathogen. Clinically his pneumonia is resolving/resolved. Lungs clear again today. No fevers or purulent sputum. Appreciate pulmonary consult - no new recs other than avoiding flutter valve for now due to pleuritic chest pain and using robitussin-DM scheduled. Will need pulmonary f/u post-discharge. (6) Recurrent oral ulcers: Plan: Has had severe persistent ulcer on the palate dating back to 04/2023 in the setting of severe neutropenia, thrush, etc. During previous admission had multiple episodes of oral cavity bleeding requiring interruption of systemic anticoagulation. Seen by ENT (Dr Whitaker) and Oral Surgery (Dr Rae). Viral swab was negative for HSV 1/2 during prior admission. During previous admission Dr. Rae cauterized the ulcer with silver nitrate. Had re-bleeding 2x earlier this week but each was self limited. Continue triamcinolone acetonide/Kenalog Orabase TID and chlorhexadine rinse BID. Continue salt water swishes. Dr Rae saw patient in consult today; no interventions needed. Dr Rae recommends he see his dentist after d/c and be fitted with an oral appliance that hopefully would prevent the ulcer from bleeding again and protect it while healing. (7) PAF (paroxysmal atrial fibrillation): Plan: Continue amiodarone TSH wnl Had a few brief runs of probable a.fib earlier this week but nothing sustained and rates were <100 Eliquis for acute and chronic DVT as well as PAF (8) Adenocarcinoma of left lung, stage 3: Plan: Followed by Dr. 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 Not in exacerbation at this time cont NC O2 - sats in low 90s acceptable - requiring typically 2-3 L O2 (10) Herpetic keratoconjunctivitis: Plan: seen by Dr Shaver, ophthalmology, week of May 24 dx with suspected left eye herpetic keratoconjunctivitis I called & spoke with Dr Shaver on 06/04/23 He advised to continue valtrex and gancyclovir gel - has own supply from home Dr Shaver advises f/u with him shortly after hospital discharge Gancyclovir gel is 5x/day to L eye (11) Chronic systolic CHF (congestive heart failure): Plan: 04/22/23 echo - EF 45-50% global hypokinesis at that time only edema is that of feet likely more so related to low albumin otherwise does not appear decompensated BPs have been too soft for initiation of beta melisa to follow with Eugenie Epperson in CHF clinic as outpatient lasix currently on hold due to ABHISHEK (12) Acute blood loss anemia: Plan: 2nd blood loss from oral ulcers, phlebotomy, epistaxis (last admission) previous transfusion - 1 unit on 05/11/23 (prior admission) this admission - lowest hemoglobin - 7.2 s/p 1 unit PRBCs on 05/30 Hb today 8.3 modest decrease but can be watched repeat H/H in am tomorrow (13) Chronic hypoxic respiratory failure: Plan: has been on home O2 for some time now previously was requiring 3 L at rest and 6 with activity up until recently following last admission was down to 2 L at rest, 4 with activity reassess O2 requirements prior to discharge chronic resp failure 2nd to COPD, pseudomonas pneumonia, etc. (14) Candidiasis of mouth and esophagus: Plan: recurrent thrush mod-severe improving cont nystatin solution - 5cc QID swish/spit angular cheilitis - nystatin cream to corners of mouth (15) Anorexia: Plan: multifactorial - lung ca, pneumonia, even swallowed blood from his oral cavity bleeding will affect appetite. started on remeron 7.5mg HS this admission and tolerating thus far. continue remeron HS. (16) Epistaxis: Plan: R nare today by report he was picking at the nose which precipitated the bleeding was self-limited added back bactroban ointment BID cont nasal saline drops use oxymask in karen of nasal cannula as the former will have less drying effect on nasal passageways Plan updated at bedside today PT/OT evals appreciated if H/H remain stable and no recurrent bleeding occurs next 1-2 days (or, even if he bleeds it is minor) -- home with home health services and home PT/OT?? he will only need cefepime thru the PM of 06/08/23 Admission and Anticipated Discharge Date Admission Date: May 29, 2023 Subjective tele overnight wnl; NSR had an episode of epistaxis this am from right nostril sometime later he coughed up a small amount of blood no bleeding from the oral ulcer today or overnight eating remains very poor sleeping ok cough is unchanged dyspnea with exertion unchanged bored, admits to feeling down and depressed - "it's the same thing every day" no change in vision of L eye Review of Systems Review of Systems: gen - no fevers cv - ongoing pleuritic pain on right - modestly better in comparison to admission pulm - no purulent sputum or large volume hemoptysis GI - no abd pain or N/V Physical Exam Physical Exam: gen - sitting in chair, NAD - looks same as previous visits; depressed in appearance mouth - ulceration anterior palate - clean, with some healing tissue/granulation noted; no bleeding from ulcer; no scab or dried blood present today; the ulcer is much smaller than 1-2 weeks ago; no vesicles; thrush plaques improved/nearly resolved; angular cheilitis improved nose - right nare with old blood/clot/scab; no active bleeding; left nare clean and clear neck - no JVD heart - RRR, s1 s2, no murmur lungs - CTA b/l; scant dry rales bases abd - soft NT ND BS+ ext - 1+ edema of feet/ankles, shins w/o edema - no change; pulses 2+ b/l feet psych - a/o x 3 but depressed affect present Results & Data Results & Data Vital Signs (Past 12 Hours) Vital Signs Temp Pulse Resp BP BP Pulse Ox O2 Del Method 06/05/23 19:32 36.4 C L 71 17 113/70 92 Oxymask 06/05/23 15:32 36.5 C 86 17 106/73 96 Oxymask 06/05/23 11:41 36.3 C L 95 H 17 101/62 96 Nasal Cannula 06/05/23 08:50 Nasal Cannula O2 Flow Rate 06/05/23 19:32 2 06/05/23 15:32 06/05/23 11:41 06/05/23 08:50 2 Laboratory Results Laboratory Results - last 24 hr 06/05/23 05:44 Hgb 8.3 L Hct 26.6 L Sodium 138 Potassium 4.0 Chloride 108 H Carbon Dioxide 24 Anion Gap 6 BUN 43 H Creatinine 1.72 H Est Cr Clr Drug Dosing 34.0 Est GFR ( Amer) 43.8 Est GFR (Non-Af Amer) 37.8 BUN/Creatinine Ratio 25.0 H Glucose 99 Calcium 9.1 PG Care Time/CCT Total # of Minutes Spent Total Time Spent with Patient: Total time spent is greater than 50% in coordination of care (as documented) at patient's floor/unit and/or counseling patient: Coding Level of Care Code 11354 SUB INP/OBS CARE 3/50MIN Diagnoses Pulmonary embolism I26.99 Deep vein thrombosis of right lower extremity I82.401 Acute kidney injury superimposed on chronic kidney disease N17.9; N18.9 Chronic deep vein thrombosis (DVT) of left peroneal vein I82.552 Pneumonia of both lower lobes due to Pseudomonas species J15.1 Recurrent oral ulcers K13.79 PAF (paroxysmal atrial fibrillation) I48.0 Adenocarcinoma of left lung, stage 3 C34.92 Centrilobular emphysema J43.2 COPD type: emphysema Emphysema type: centrilobular Herpetic keratoconjunctivitis B00.52 Chronic systolic CHF (congestive heart failure) I50.22 Acute blood loss anemia D62 Chronic hypoxic respiratory failure J96.11 Candidiasis of mouth and esophagus B37.81; B37.0 Anorexia R63.0 Epistaxis R04.0 (9) 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
[2023-06-05] MEDS: CEFEPIME 2,000 MG in SYRINGE 0 ML IV SCH (21:25)
[2023-06-06 06:45] LABS: Hematocrit (blood only) 26.2 % (42.0-52.0); Hemoglobin 8.3 g/dl (14.0-18.0)
[2023-06-06 07:18] LABS: Creatinine Clr Calc Pharmacy 35.3 ml/min; Est GFR (African American) 48.2 ml/min; Est GFR (Non-African American) 41.6 ml/min
--- NOTE | 2023-06-06 13:51 | Discharge Summary ---
Date of Service June 06, 2023 Admission HPI Per Admitting Provider The patient is a 78-year-old male with a past medical history including left lower extremity DVT, recurrent oral ulcers with intermittent bleeding, Pseudomonas aeruginosa bibasilar pneumonia and septic shock, PAF, acute blood loss anemia, HFrEF, pancytopenia due to antineoplastic chemotherapy, COPD, adenocarcinoma of the left lung stage III on 01/27/2023, pneumothorax after biopsy, AAA repair, and multiple pulmonary nodules. His most recent [facility] admissions are from 04/20-05/05/2023, and 05/10-05/27/2023. He had Pseudomonas and blood cultures on 04/21/2023, and Pseudomonas in sputum on 05/13/2023. He was most recently discharged on cefepime 2 g IV every 12 hours, with dosing to continue until 06/08/2023. He had been taking Eliquis 5 mg twice daily as directed, but was put on hold at last admission and was to resume on 06/24/2023 or until instructed to resume by Dr. Roque. Chest x-ray this evening shows emphysema with persistent bibasilar opacities suggestive of pneumonia Creatinine of 2.34 needed and advisable to pursue CT angiography of this evening Bilateral lower extremity venous Dopplers showed a new right popliteal, peroneal and posterior tibial DVT. Persistence of left peroneal DVT Patient has recently been started for a left eye infection by ophthalmology on Valacyclovir 1000 mg p.o. 3 times daily, and a topical gel which they have not been able to get at the pharmacy yet due to it being out of stock In the ED the patient was started on heparin drip due to new right lower extremity DVT, and presumed right sided pulmonary embolism due to severe right- sided chest pain, which could possibly also have been worsening pneumonia Principal Diagnosis RLE DVT, presumed pulmonary embolism, pseudomonas pneumonia, oral ulcer with recurrent bleeding Discharge Exam PHYSICAL EXAMINATION Last 24h vital signs reviewed, see documentation in flowsheet General: comfortable appearing, no distress, sitting in chair per his habit HEENT: Normocephalic, atraumatic, pupils round and equal, sclerae anicteric, no conjunctival injection, moist mucus membranes oral hard palate ulcer no active bleeding Lungs: Normal respiratory effort. bases clearer than last week, slight crackles, diminished L base with breath sounds present. no wheezing Heart: Regular rate and rhythm, no murmurs. No JVD Abdomen: nondistended Extremities: Warm, dry, well-perfused. 1+ extremity edema - ankles/feet only, improved over past week Neuro: Alert and oriented x 4, face symmetric, moves 4 extremities well Psych: Normal affect and behavior Discharge Data Allergies Allergy/AdvReac Type Severity Reaction Status Date / Time JUAN R Inhibitors AdvReac Intermediate hyperkalemi Verified 05/29/23 17:22 a Consultations 05/29/23 20:43 ED Decision to Admit Stat 06/01/23 07:24 Consult Pulmonology Routine 06/03/23 20:51 Consult Oromaxillofacial Surgery Routine Ordered Studies 05/29/23 18:04 US venous doppler LE BI Stat Chest X-Ray 05/29/23 18:04 XR chest 1V portable HISTORY: 78 years-old Male CP acute chest pain COMPARISON: 05/22/2023 TECHNIQUE: AP view the chest FINDINGS: Cardiac silhouette is enlarged. Emphysema. No pneumothorax or large pleural effusion. Patchy bibasilar consolidation redemonstrated with slightly improved aeration of the left midlung. Intact. IMPRESSION: 1. Emphysema with persistent bibasilar opacities suggestive of pneumonia. 2. Cardiomegaly. ACT 112: Negative or not required by law. The above report was generated using voice recognition software. It may contain grammatical, syntax or spelling errors. Electronically signed by: Tacho Carlin M.D. 05/29/2023 6:20 PM Venous Doppler Study 05/29/23 18:04 CR Exam(s): US VENOUS BILATERAL LOWER EXTREMITIES EXAM: US Duplex Bilateral Lower Extremities Veins CLINICAL HISTORY: Reason for exam: swelling. TECHNIQUE: Real-time duplex ultrasound scan of the bilateral lower extremity veins integrating B-mode two-dimensional vascular structure, Doppler spectral analysis, color flow Doppler imaging and compression. COMPARISON: May 25, 2023 and May 17, 2023 FINDINGS: Right deep veins: Occlusive thrombus in the right popliteal, peroneal, and posterior tibial veins consistent with DVT. Right superficial veins: There is thrombus in the right small saphenous vein as well. Left deep veins: Probable thrombus in the left peroneal veins. No other DVT is seen on the left. This is unchanged. Left superficial veins: Small amount of superficial thrombus of the left small saphenous vein in the popliteal fossa. Soft tissues: No acute findings. No popliteal cyst. IMPRESSION: 1. Occlusive thrombus in the right popliteal, peroneal, and posterior tibial veins consistent with DVT. This is new. 2. Probable thrombus in the left peroneal veins. No other DVT is seen on the left. This is unchanged. Communications: Call Doctor DVT acute, progressing Electronically signed by: Raúl Byers MD 05/29/23 20:27 PM Chest X-Ray 06/01/23 07:23 XR chest 1V portable HISTORY: pneumonia, follow-up COMPARISON: Chest 05/29/2023. FINDINGS: No pneumothorax. Small bilateral pleural effusions and bibasilar densities persist. Small airspace opacity within the left upper lobe is again noted. The cardiac silhouette is stable in size. No acute fractures. IMPRESSION: Bibasilar airspace opacities and small bilateral pleural effusions are again noted. ACT 112: Negative or not required by law. Electronically signed by: Neil Zeng M.D. 06/01/2023 8:33 AM Hospital Course (1) Pulmonary embolism: Presumed pulmonary embolism on right given his new right sided pleuritic chest pain in the setting of acute RLE DVT. CTA chest has been deferred due to ABHISHEK. However, obtaining CTA won't change his overall management. Cont Eliquis 10mg BID x 7 days then 5mg BID thereafter. He will need lifelong treatment. The decrease to 5mg will be the evening of 06/08/23. Thus far the bleeding episodes from the mouth or nose have been very small volume/minimal this admission. (2) Deep vein thrombosis of right lower extremity: Multiple RLE calf veins: popliteal, peroneal and posterior tibial veins, new since 05/17/23. Also has chronic appearing L peroneal DVT. Previous L common femoral DVT and superficial femoral DVT resolved. Tolerated heparin drip earlier in admission; transitioned to PO Eliquis earlier this week. Plan is 10mg BID x 7 days, then 5mg BID thereafter - will need lifelong anticoagulation given his cancer, PAF, etc. Switch to 5mg BID PM of 06/08/23. (3) Acute kidney injury superimposed on chronic kidney disease: Baseline Cr 1.2. Peak Cr 2.3 at time of admission. Improving slowly - Cr today 1.5 ABHISHEK - prerenal 2nd to hypotension/bleeding/volume depletion Lasix on hold. Foot/ankle edema improved over the past week despite not being on lasix. -if lasix is restarted in the future would dose 20 mg every other day unless oral intake significantly improves -no evidence of heart failure exacerbation/volume overload (4) Chronic deep vein thrombosis (DVT) of left peroneal vein: found during previous admission seen by vascular surgery, Dr Manuel, to determine if patient needed IVC Filter since his anticoagulation was being placed on hold frequently due to oral cavity bleeding IVC filter deferred during previous admission was on heparin drip this admission -- transitioned to PO Eliquis and tolerating thus far with very low volume bleeding from nose or oral cavity; nothing large volume fortunately (5) Pneumonia of both lower lobes due to Pseudomonas species: Cont cefepime IV, end-date 06/08/23. Repeat sputum culture this admission negative for any new pathogen. Clinically his pneumonia is resolving/resolved. Appreciate pulmonary consult - no new recs other than avoiding flutter valve for now due to pleuritic chest pain and using robitussin-DM scheduled. Will need pulmonary f/u post-discharge. (6) Recurrent oral ulcers: Has had severe persistent ulcer on the palate dating back to 04/2023 in the setting of severe neutropenia, thrush, etc. During previous admission had multiple episodes of oral cavity bleeding requiring interruption of systemic anticoagulation. Seen by ENT (Dr Whitaker) and Oral Surgery (Dr Rae). Viral swab was negative for HSV 1/2 during prior admission. During previous admission Dr. Rae cauterized the ulcer with silver nitrate. Had re-bleeding 2x earlier this week but each was self limited. Continue triamcinolone acetonide/Kenalog Orabase TID and chlorhexadine rinse BID. Continue salt water swishes. Dr Rae saw patient in consult 06/04; no interventions needed. Dr Rae recommends he see his dentist after d/c and be fitted with an oral appliance that hopefully would prevent the ulcer from bleeding again and protect it while healing. (7) PAF (paroxysmal atrial fibrillation): Continue amiodarone TSH wnl Had a few brief runs of probable a.fib earlier this week but nothing sustained and rates were <100 Eliquis for acute and chronic DVT as well as PAF (8) Adenocarcinoma of left lung, stage 3: Followed by Dr. Roque - CCP Had one cycle of chemo early April 2023 Complicated by severe pancytopenia & neutropenia and septic shock from pseudomonas bacteremia and pneumonia Has not resumed chemo or XRT since that time due to recurrent illness and recurrent hospitalizations Was to see Dr Roque on 06/02 as outpatient to discuss timing of future chemo but unfortunately was re-admitted Discussed with Dr. 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 Glynn discussed with Nilesh and his - he was receptive to talking with palliative care, discussed with Dr. Blanco -he will follow up with her in clinic (9) Chronic obstructive pulmonary disease: Duoneps PRN. Not in exacerbation at this time cont NC O2 - sats in low 90s acceptable - requiring typically 2-3 L O2. Has home oxygen for chronic hypoxic respiratory failure (10) Herpetic keratoconjunctivitis: seen by Dr Shaver, ophthalmology, week of May 24 dx with suspected left eye herpetic keratoconjunctivitis I called & spoke with Dr Shaver on 06/04/23 He advised to continue valtrex and gancyclovir gel - has own supply from home Dr Shaver advises f/u with him shortly after hospital discharge Gancyclovir gel is 5x/day to L eye (11) Chronic systolic CHF (congestive heart failure): 04/22/23 echo - EF 45-50% global hypokinesis at that time only edema is that of feet likely more so related to low albumin otherwise does not appear decompensated BPs have been too soft for initiation of beta melisa to follow with Eugenie Epperson in CHF clinic as outpatient lasix currently on hold due to ABHISHEK (12) Acute blood loss anemia: 2nd blood loss from oral ulcers, phlebotomy, epistaxis (last admission) previous transfusion - 1 unit on 05/11/23 (prior admission) this admission - lowest hemoglobin - 7.2 s/p 1 unit PRBCs on 05/30 stable at 8.3 06/05 (13) Chronic hypoxic respiratory failure: has been on home O2 for some time now previously was requiring 3 L at rest and 6 with activity up until recently following last admission was down to 2 L at rest, 4 with activity, improved back down to 2-3L chronic resp failure 2nd to COPD, pseudomonas pneumonia, etc. (14) Candidiasis of mouth and esophagus: recurrent thrush mod-severe improving cont nystatin solution - 5cc QID swish/spit angular cheilitis - nystatin cream to corners of mouth (15) Anorexia: multifactorial - lung ca, pneumonia, even swallowed blood from his oral cavity bleeding will affect appetite. started on remeron 7.5mg HS this admission and tolerating thus far. continue remeron HS. (16) Epistaxis: R nare 06/04 by report he was picking at the nose which precipitated the bleeding was self-limited added back bactroban ointment BID cont nasal saline drops Plan home with home health, home infusion Total Time Total Time Spent Total Time Spent (In Minutes): 40 minutes spent coordinating care for discharge including reviewing vitals, labs, examining and counseling patient, discussion with resident care provider, oncologist, writing discharge orders and instructions, documentation Discharge Plan Discharge Items Patient Disposition: Home - Home Health Services Reason For Visit: PSEUDOMONAS PNEUMONIA, ABHISHEK, DVT/ PE Discharge Diagnosis: Right leg DVT, pseudomonas pneumonia Activity: Resume your previous activity Non-emergency contact: Primary Care Provider and Oncologist Call non-emergency contact if: you have any medication questions and your symptoms worsen Follow-up/Referrals: Efrem Estevez DO [Primary Care Provider] - Raffaele Rae DMD [Physician] - Sami Shaver DO [Physician] - 06/12/23 2:15 pm (early next week - dx: Left eye herpetic keratoconjunctivitis ) Sanjana Blanco DNP [Nurse Practitioner] - Jaqueline Roque MD [Physician] - Diet: Regular Addtl Attending Provider Instructions: Continue cefepime for pseudomonas pneumonia (end date 06/07) -please schedule follow up with Dr. Khan in 4-6 weeks Oral ulcer, recurrent bleeding -continue Peridex and kenalog paste - apply to the large ulcer -Dr. Rae recommended you schedule follow up with him this week -also schedule follow up with your dentist Dr. Rose Continue the zirgan eye gel and follow up with Dr. Shaver as scheduled. Dr. Shaver said to stay on the valacyclovir until you see him in the office - you should have enough at home - but we decreased the dose from three times a day to two times a day, adjusted for your current kidney function Dr. Kamara recommended dextromethorphan-guaifenesin around the clock for two more days then as needed for blood in sputum - this is available over the counter (robitussin etc) Reschedule with Dr. Roque and Dr. Rice -I let Dr. Roque know that you are going home You may choose to follow up in palliative care clinic with Dr. Blanco. Palliative care is a specialty that helps people with serious and life- threatening illnesses including cancers with issues like pain and symptom management and discussions about goals of care over time. It is not the same thing as hospice and is much broader than that, though when appropriate, end of life care is within their scope of practice. She said she would be happy to follow you in clinic. Keep taking protein shake/bar ideally twice a day I prescribed mirtazapine - take at bedtime. This helps with appetite, sleep, and mood Right calf DVT (blood clots in veins) and probable PE (pulmonary embolism) - blood clot in right lung Your apixaban will be 10 mg (2 tabs) twice a day until the evening of 06/07 (Thursday), on Thursday evening the dose will decrease to 5 mg (1 tab) twice a day and continue indefinitely Stop your furosemide (lasix) and baby aspirin for now Pending Studies at Discharge: No Stand-Alone Forms: My [facility] Preact, Smoking Cessation Medications and DC Order Prescriptions: New nystatin 100,000 unit/mL Suspension 5 ml PO QID 7 Days Qty: 140 0RF mirtazapine 15 mg Tablet 15 mg PO HS Qty: 30 0RF dextromethorphan-guaifenesin [Robitussin Cough-Chest Ashok DM] 5-100 mg/5 mL Liquid 10 ml PO Q8 Qty: 0 0RF Rx Instructions: buy over the counter mupirocin 2 % Ointment 1 applic EXT BID Qty: 15 0RF Rx Instructions: twice a day to both nostrils for 7 days valacyclovir 1 gram tablet 1,000 mg PO BID Qty: 1 0RF Rx Instructions: continue valacyclovir 1000 mg twice a day (renal dosing) until you see Dr. Sivakumar. You should still have adequate supply of this at home Continued prochlorperazine maleate [Compazine] 10 mg tablet 10 mg PO Q8H PRN (Reason: Nausea) atorvastatin [Lipitor] 20 mg tablet 20 mg PO PM 90 Days Qty: 90 3RF Hold Instructions: hold until your outpatient providers tell you it is ok to resume. albuterol sulfate 90 mcg/actuation HFA aerosol inhaler 2 inh inhalation QID PRN (Reason: shortness of breath or wheezing) Qty: 8.5 5RF Trelegy Ellipta 100-62.5-25 mcg blister with device 1 inh inhalation DAILY Qty: 60 2RF ascorbate calcium (vitamin C) 500 mg tablet 500 mg PO QAM vitamin E succinate 400 unit tablet 400 units PO QAM amiodarone 200 mg tablet 200 mg PO DAILY cholecalciferol (vitamin D3) [Vitamin D3] 50 mcg (2,000 unit) Capsule 50 mcg PO QPM Saline Mist 0.65 % Aerosol,Paden 2 spray NA Q1H PRN (Reason: dry nasal passages) Qty: 0 0RF Rx Instructions: may buy over the counter chlorhexidine gluconate 0.12 % Mouthwash 15 ml MT BID Qty: 473 0RF triamcinolone acetonide 0.1 % Paste 1 applic MT TID Qty: 5 1RF cefepime 2 gram recon soln 2 g IV Q12H Rx Instructions: home infusion. Stop date 06/07 completes 4 week. ondansetron 8 mg tablet,disintegrating 8 mg PO Q8 PRN (Reason: Nausea And Vomiting) magnesium oxide 400 mg (241.3 mg magnesium) Tablet 400 mg PO QAM Qty: 30 2RF (DME) Oxygen Home [id number] Liters Per Minute See Rx Instructions .ROUTE .MEDSUPPLY Qty: 1 0RF Rx Instructions: 3 liters at rest, 6 liters with ambulation/activity Eliquis 5 mg Tablet 5 mg PO BID Qty: 1 0RF Rx Instructions: take 10 mg (2 tabs) twice a day for DVT then decrease to 5 mg (1 tab) twice a day on Thursday evening 06/07 and continue indefinitely Held potassium chloride 10 mEq tablet extended release 10 meq PO DAILY Qty: 30 0RF Hold Instructions: Resume on 06/06/23. aspirin [Adult Aspirin Regimen] 81 mg tablet,delayed release (DR/EC) 81 mg PO QAM Hold Instructions: Resume on 07/04/23. hold until restarted by your doctors - consider resuming once ALL bleeding problems resolved Rx Instructions: ON HOLD furosemide [Lasix] 20 mg tablet 20 mg PO QAM Qty: 30 1RF Hold Instructions: Resume on 06/06/23. hold until restarted by your doctors - kidney injury. You might not need this unless/until your oral intake increases Discontinued valacyclovir 1 gram tablet 1,000 mg PO TID Rx Instructions: STARTED 05/28/23 FOR 7 DAYS Discharge Orders: Discharge Order (Routine); Ordered 06/06/23 Ordered By: Yue Beltran Admission Data Admit Date/Time: 05/29/23 21:46 Attending Provider: Yue Beltran Admit Provider: Joel Benitez Primary Care Provider: Efrem Estevez Other Providers: Joel Benitez; Ankit Holliday; Fernando Khan; Matthew Foote; Jeannette Kamara; Elin Mars; Terese Bolden; Chau Harp; Samir Barclay; Maria Alejandra Pringle; Jimi,Jama; Raffaele Rae Coding Level of Care Code 33201 INP/OBS DISCH >30 MIN Diagnoses Pulmonary embolism I26.99 Deep vein thrombosis of right lower extremity I82.401 Acute kidney injury superimposed on chronic kidney disease N17.9; N18.9 Chronic deep vein thrombosis (DVT) of left peroneal vein I82.552 Pneumonia of both lower lobes due to Pseudomonas species J15.1 Recurrent oral ulcers K13.79 PAF (paroxysmal atrial fibrillation) I48.0 Adenocarcinoma of left lung, stage 3 C34.92 Centrilobular emphysema J43.2 COPD type: emphysema Emphysema type: centrilobular Herpetic keratoconjunctivitis B00.52 Chronic systolic CHF (congestive heart failure) I50.22 Acute blood loss anemia D62 Chronic hypoxic respiratory failure J96.11 Candidiasis of mouth and esophagus B37.81; B37.0 Anorexia R63.0 Epistaxis R04.0
[2023-06-08] MEDS ORDERED: APIXABAN 5 MG TABLET PO SCH (21:00)
== END 2023-06-06 14:41 | disposition home health service (06) | DRG 299 ==
LOC: ED 16:15 → 2S 21:46 → SUATTDRO 21:46 → 2S 23:07 → 2E 05-30 15:39
DX: B37.0 Candidal stomatitis; J15.1 Pneumonia due to Pseudomonas; I48.0 Paroxysmal atrial fibrillation; R63.0 Anorexia; K13.79 Other lesions of oral mucosa; B37.81 Candidal esophagitis; N17.9 Acute kidney failure, unspecified; I82.441 Acute embolism and thrombosis of right tibial vein; I82.552 Chronic embolism and thrombosis of left peroneal vein; Z88.8 Allergy status to other drugs, medicaments and biological substances; Z87.891 Personal history of nicotine dependence; I82.451 Acute embolism and thrombosis of right peroneal vein; I82.431 Acute embolism and thrombosis of right popliteal vein; R04.0 Epistaxis; D62 Acute posthemorrhagic anemia; J43.2 Centrilobular emphysema; Z79.899 Other long term (current) drug therapy; Z68.21 Body mass index [BMI] 21.0-21.9, adult; C34.92 Malignant neoplasm of unspecified part of left bronchus or lung; I50.22 Chronic systolic (congestive) heart failure; I26.99 Other pulmonary embolism without acute cor pulmonale; Z99.81 Dependence on supplemental oxygen; Z79.51 Long term (current) use of inhaled steroids; N18.9 Chronic kidney disease, unspecified; B00.52 Herpesviral keratitis; Z79.01 Long term (current) use of anticoagulants; Z79.82 Long term (current) use of aspirin; J96.11 Chronic respiratory failure with hypoxia; Z92.21 Personal history of antineoplastic chemotherapy

== ENCOUNTER 2024-07-17 20:09 | Inpatient (IN) ==
--- NOTE | 2024-07-17 20:34 | Emergency Department Note ---
Impression & Plan Neutropenia Admission ED Provider Note HPI: History obtained from patient. The patient is a 79-year-old male with history of adenocarcinoma of the left lung, currently on chemotherapy and radiation therapy, who presents the emergency department with a chief complaint of generalized weakness and fatigue. Patient states that he has had the symptoms increasingly over about the past 3 to 4 days. Patient denies any chest pain, he denies any shortness of breath at rest. Patient states when he exerts himself he does get some shortness of breath. Overall the patient states he just feels "wiped out". On arrival here to the ED the patient is mildly tachycardic, he is with an oxygen of 89% on 1 L nasal cannula which he wears at baseline. Patient otherwise appears to be in no acute distress on arrival. ROS: - Per HPI Differential Diagnosis: Pneumonia, neutropenic fever, sepsis, urinary tract infection, malignant pleural effusion, PE, ACS, amongst other potential pathologies. *Outpatient medications and allergy history reviewed. PE: General: Alert, frail-appearing, no acute distress HEENT: Normocephalic, trachea midline Eyes: Extraocular eye movement is intact, no scleral erythema Pulmonary: Clear to auscultation bilaterally, no wheezing Cardio: Regular rate and rhythm GI: Abdomen is soft to palpation : No suprapubic tenderness MSK: No evidence of trauma or malformation of the extremities, no edema Skin: No evidence of rash Neuro: Alert, no focal deficits Psychiatric: Cooperative INDEPENDENT INTERPRETATIONS: hall monitor: (As interpreted by myself): - An order was placed for continuous cardiac monitoring - Patient was noted to be in sinus rhythm with a rate of 95 EKG: (As interpreted by myself): Rate: 100 Rhythm: Normal sinus rhythm Intervals: Within normal limits ST changes: No ST elevation Time: 2024 Chest x-ray: (As interpreted by myself): Small left lower lobe infiltrate Interventions provided in ED: - IV fluid bolus, IV vancomycin, IV cefepime Medical Decision Making: IV was established and lab work obtained, patient was placed on front desk monitor. Patient's oxygen remained stable on 1 L nasal cannula while he was at rest in the bed. Lab work shows severe leukopenia at 0.25, hemoglobin is stable at 13.1, patient is noted to have ANC count less than 500, blood cultures were drawn and the patient was initiated on IV vancomycin and IV cefepime given his reported subjective fever at home. Patient's x-ray from 07/14 showed left lower lobe pneumonia. His x-ray today per my interpretation appears to be improved from his previous however I do suspect a small left lower lobe infiltrate. This is likely the source of his subjective fever and weakness. CMP does not show any evidence of any critical findings. Troponin is mildly elevated at 29.2, delta troponin was obtained here in the ED and down trended slightly to 27.8. Low suspicion for ACS. Patient denies any chest pain. Low suspicion for PE as the patient is already on anticoagulation. COVID screening is negative. I discussed the patient's presentation with the on-call hospitalist, Dr. Byers, and the patient was placed for admission in stable condition for further care. Patient was in agreement to this plan as was his at the bedside. Consultants/Discussions held with other healthcare providers: - Hospitalist, Dr. Byers Disposition discussion held by myself with: - Patient and patient's at the bedside Diagnosis: 1. Neutropenia, acute, severe 2. History of lung cancer, on chemo and radiation therapy 3. Left lower lobe pneumonia, acute 4. Elevated high-sensitivity troponin Disposition: Admission Tushar Davenport DO Emergency Medicine Past Med/Surg History Problem List (Updated 07/18/24 @ 00:48 by Tushar Davenport DO) Neutropenia (Acute) Pneumonia Oral thrush Mitral regurgitation Chronic respiratory failure with hypoxia, on home O2 therapy Palliative care by specialist Pulmonary embolism 05/2023- on Eliquis Chronic deep vein thrombosis (DVT) of left peroneal vein 05/2023- on Eliquis Mucositis PAF (paroxysmal atrial fibrillation) Chronic diastolic heart failure Pancytopenia due to antineoplastic chemotherapy WBC and plts WNL on 07/14/23 labs; chronic anemia Thrombocytopenia due to enhanced destruction, immune likely septic etiology plts WNL 07/14/23 Lower extremity edema Adenocarcinoma of left lung, stage 3 (Chronic 01/27/23) Hypoxia (Acute) Pneumothorax after biopsy 01/2023 History of abdominal aortic aneurysm repair Chronic obstructive pulmonary disease Medical History Epistaxis 05/2023 Candidiasis of mouth and esophagus Herpetic keratoconjunctivitis Deep vein thrombosis of right lower extremity 05/2023- on Eliquis Pseudomonas aeruginosa infection May 2023- treated Heart failure with mildly reduced ejection fraction (HFmrEF) Follows with [facility] EF 55% on most recent ECHO 07/17/23 Per HF visit 06/29/23- no current symptoms, not excessively hypervolemic on exam; ordered repeat ECHO- if EF normal- likely will not require snf follow up with HF clinic (EF on 07/2023 ECHO normal) Chronic hypoxic respiratory failure 1.5 lpm via n/c at rest and up to 5 lpm via n/c with activity Elevated hemoglobin A1c 7.4 in 04/2023 Glucose WNL on 07/2023 labs History of abdominal aortic aneurysm (AAA) s/p repair 2016- per 04/21/23 A/P CT scan- " Aortoiliac stent graft. No abdominal aortic aneurysm" On anticoagulant therapy Hx of sepsis (04/2023) pseudomonas sepsis - inpatient April 2023 at [facility] History of Pseudomonas pneumonia May 2023. inpatient at [facility]. resolved at this time. Atrial fibrillation follows with [facility] - Dr Arevalo and also started seeing [facility] Cardiology on Eliquis Pulmonary embolism Presumed per records - 05/2023 -- on Eliquis Herpetic keratoconjunctivitis Mid May 2023- follows with Dr. Shaver- treated with Valtrex and gancylovir gel per records (pt unaware, states he has some kind of eye infection) following with Dr Shaver - current, but is getting better. On home oxygen therapy 1.5 lpm via n/c at rest and up to 5 lpm via n/c with activity Adenocarcinoma of left lung, stage 3 x3 chemotherapy treatments and radiation treatments, finished 04/2023. no surgical intervention. Hx of pneumothorax (01/28/23) s/p bronchoscopy with biopsy - treated at [facility] Emergency Room with chest tube. Left leg DVT dx 05/2023 - placed on Eliquis. BPH (benign prostatic hyperplasia) Multiple pulmonary nodules determined by computed tomography of lung Kidney stones hx of kidney stones with lithotripsy. nonobstructing on most recent imaging PVC (premature ventricular contraction) on occasion Hypertension Diverticulosis Hyperlipemia COPD (chronic obstructive pulmonary disease) well controlled per pt > no res inh use Surgical History Hx of chest tube placement (01/28/23) History of bronchoscopy (01/27/23) with biopsy History of aortic aneurysm repair endovascular > [facility] [place] > 2016 > follows with [facility] cardiology annually. History of cataract surgery bilat History of tooth extraction dental implants History of lithotripsy History of inguinal hernia repair left x 1, right x 2. H/O colonoscopy 07/2020 repeat 5 years Family History Father Colon cancer Colorectal cancer Family/Other Heart disease Hypertension Mother Stroke Denies family history of Ovarian cancer Prostate cancer Myocardial infarction Breast cancer Social History Smoking Status: Former smoker Tobacco Type: Cigarettes Age Started Using Tobacco: 32; Age Quit Using Tobacco: 78; packs per day: 0.5; Cigarettes Per Day: 10 cigs per day; Second Hand Exposure: No; Do You Dip or Chew Tobacco: No; Hx Alcohol Use: No Hx Substance Use: No Preferred Language: Pashto Communication Ability: Effective Visual Impairment: No Limitations Hearing Ability: Normal Parish Visitor Required: No Beliefs That Will Affect Care: None marital status: Current Living Situation: Spouse Current Living Situation Comment: lives with current occupational status: 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 How many Children do You have: 1 Feels Safe at Home: Yes Childhood Exposure to Second-Hand Smoke: No caffeine: Yes Dental Care, Regularly: Yes Physical Activity Frequency: Does not Exercise Seatbelt Use: always Sunscreen Use: Yes Assistive Devices: Oxygen - Continuous Allergies Allergies Allergy/AdvReac Type Severity Reaction Status Date / Time JUAN R Inhibitors AdvReac Intermediate hyperkalemi Verified 07/05/24 12:18 a amlodipine AdvReac swelling Verified 07/05/24 12:18 Home Meds Home Medications Medication Instructions Recorded Confirmed vitamin E succinate 268 mg (400 400 units PO QAM 11/30/18 07/17/24 unit) tablet ascorbic acid (vitamin C) 500 mg 500 mg PO QAM 07/02/23 07/17/24 tablet cholecalciferol (vitamin D3) 50 50 mcg PO QAM 07/02/23 07/17/24 mcg (2,000 unit) capsule Oxygen Home 11/16/23 07/17/24 carboxymethylcellulose sodium 0.5 1 drp ophthalmic (eye) TID 06/07/24 07/17/24 % eye drops (Refresh Tears) valacyclovir 1 gram tablet 1,000 mg PO DAILY 06/07/24 07/17/24 ondansetron HCl 8 mg tablet 8 mg PO Q8H PRN N/V 06/27/24 07/17/24 prednisolone acetate 1 % eye 1 drp OPL BID 06/27/24 07/17/24 drops,suspension prochlorperazine maleate 10 mg 10 mg PO Q6H PRN Nausea 06/27/24 07/17/24 tablet (Compazine) Previous Rx's Medication Instructions Recorded albuterol sulfate 90 mcg/actuation 2 inh inhalation QID PRN shortness 05/28/23 aerosol inhaler of breath or wheezing #8.5 grams atorvastatin 20 mg tablet (Lipitor) 20 mg PO QPM #90 tabs 09/14/23 apixaban 5 mg tablet (Eliquis) 5 mg PO BID #90 tabs 03/15/24 Portable Oxygen #1 ea 04/18/24 fluticasone fur. 100 mcg-umeclid 1 inh inhalation QAM #3 Inhalers 06/28/24 62.5 mcg-vilant 25 mcg inhalat.powder (Trelegy Ellipta) Magic Mouthwash 300 mL mouthwash 10 ml mucous membrane ACHS PRN 07/11/24 sorethroat #300 mL Results & Data (ED) Vital Signs Vital Signs - 24 hr 07/17/24 20:12 07/17/24 20:43 07/17/24 21:38 Temperature 37.2 C Temperature Source Temporal Artery Scan Pulse Rate 113 H 93 H Pulse Rate from SpO2 Sensor Pulse Rhythm Regular Pulse Strength Normal Respiratory Rate 18 Respiratory Effort / Characteristics Non-Labored Spontaneous Respiratory Depth Normal Respiratory Pattern Regular Blood Pressure 100/62 Blood Pressure Mean 74 Blood Pressure Position Sitting Pulse Oximetry 89 L 85 L Oxygen Delivery Method Nasal Cannula Room Air Oxygen Flow Rate 1 Sepsis Recent Fever Within 48 Hours Yes Sepsis New/Unexplained Change in Mental Status N/A Sepsis Action Taken by Nursing No Action Required 07/17/24 21:48 07/17/24 21:54 07/17/24 22:06 Temperature Temperature Source Pulse Rate 94 H 100 H 100 H Pulse Rate from SpO2 Sensor 95 H 100 H Pulse Rhythm Pulse Strength Respiratory Rate 20 20 22 Respiratory Effort / Characteristics Respiratory Depth Respiratory Pattern Blood Pressure 107/73 103/75 Blood Pressure Mean 84 84 Blood Pressure Position Pulse Oximetry 96 90 92 Oxygen Delivery Method Nasal Cannula Room Air Nasal Cannula Oxygen Flow Rate 1 1 Sepsis Recent Fever Within 48 Hours Sepsis New/Unexplained Change in Mental Status Sepsis Action Taken by Nursing Laboratory Data 07/17/24 20:37 07/17/24 20:37 Lab Results 07/17/24 07/17/24 07/17/24 Range/Units 20:37 20:41 22:23 WBC 0.25 L* (4.8-10.8) K/ul RBC 4.06 L (4.70-6.10) M/uL Hgb 13.1 L (14.0-18.0) g/dl Hct 38.8 L (42.0-52.0) % MCV 95.6 (80.0-100.0) fL MCH 32.3 (25.0-34.0) pg MCHC 33.8 (32.0-36.0) g/dL RDW Std Deviation 51.2 H (36.4-46.3) fL RDW Coeff of Fany 14.6 H (11.5-14.5) % Plt Count 102 L (130-400) K/uL MPV 11.3 (9.4-12.4) fL Neut # (Auto) < 0.50 L* (1.40-6.50) K/uL PT 12.1 H (9.0-12.0) Seconds INR 1.1 (0.9-1.1) VBG pH 7.44 H (7.36-7.41) VBG pCO2 36 L (38-50) mmHg VBG pO2 25 mmHg VBG HCO3 25 mmol/L VBG O2 Saturation < 60.0 % VBG Base Excess 0.6 mEq/L Sodium 130 L (136-145) mmol/L Potassium 5.1 (3.5-5.1) mmol/L Chloride 98 (98-107) mmol/L Carbon Dioxide 23 (21-32) mmol/L Anion Gap 9 (3-11) BUN 38 H (6-23) mg/dl Creatinine 1.72 H (0.6-1.4) mg/dl Est Cr Clr Drug Dosing Not Reportable eGFR 40.44 BUN/Creatinine Ratio 22.1 H (10-20) Glucose 182 H (70-99(Fasting)) mg/dl Calcium 9.1 (8.6-10.3) mg/dl Phosphorus 2.7 (2.5-4.9) mg/dl Magnesium 1.4 L (1.7-2.4) mg/dl Total Bilirubin 1.6 H (0.2-1.0) mg/dl AST 18 (13-39) U/L ALT 22 (7-52) U/L Alkaline Phosphatase 57 (34-104) U/L Troponin I High Sens 29.2 H 27.8 H (0-20) pg/ml B-Natriuretic Peptide 183 H (0-100) pg/ml Total Protein 7.1 (6.0-8.3) gm/dl Albumin 3.7 (3.4-5.0) gm/dl Globulin 3.4 (2.5-4.0) gm/dl Albumin/Globulin Ratio 1.1 (0.9-2) SARS-CoV-2 (PCR) NEGATIVE (Negative) Administered Medications Apixaban (Apixaban 5 Mg Tablet) 5 mg PO BID KENDAL Stop: 08/17/24 08:59 Last Admin: 07/18/24 00:27 Dose: 5 mg Documented By: MARYAM Lactated Ringer's (Lr) 1,000 mls @ 100 mls/hr IV .Q10H KENDAL Stop: 07/18/24 09:35 Last Admin: 07/18/24 00:27 Dose: 100 mls/hr Documented By: MARYAM Discontinued Medications Apixaban (Apixaban 5 Mg Tablet) 5 mg PO ONE ONE Stop: 07/17/24 22:53 Last Admin: 07/18/24 00:01 Dose: Not Given Documented By: MARYAM Atorvastatin Calcium (Atorvastatin 20 Mg Tab) 20 mg PO NOW STA Stop: 07/17/24 22:53 Last Admin: 07/18/24 00:02 Dose: Not Given Documented By: MARYAM Azithromycin (Azithromycin 250 Mg Tab) 500 mg PO NOW ONE Stop: 07/17/24 23:37 Last Admin: 07/18/24 00:26 Dose: 500 mg Documented By: MARYAM Cefepime HCl (Maxipime 2000mg) 2,000 mg in 20 mls @ 5 mls/min IV NOW STA; Protocol Stop: 07/17/24 22:00 Last Admin: 07/17/24 23:02 Dose: 5 mls/min Documented By: MARYAM Sodium Chloride (Nss) 1,000 mls @ 999 mls/hr IV .Q1H1M ONE Stop: 07/17/24 23:19 Last Infusion: 07/18/24 00:02 Dose: 0 mls/hr Documented By: Admin: 07/17/24 23:02 Dose: 999 mls/hr Documented By: MARYAM Vancomycin HCl 1,500 mg/ (Sodium Chloride) 530 mls @ 200 mls/hr IV NOW ONE Stop: 07/18/24 00:35 Last Infusion: 07/18/24 00:02 Dose: Infused Documented By: Admin: 07/17/24 23:47 Dose: 200 mls/hr Documented By: MARYAM Discharge Plan Visit Data Chief Complaint: Shortness of Breath/Dyspnea Stated Complaint: SOB,WEAKNESS ED Provider: Tushar Davenport Discharge Problem: Neutropenia Patient Disposition: Admitted As Inpatient Condition: Fair Discharge Instructions Interventions: ED Discharge Assessment Last Done: 07/17/24 23:20
[2024-07-17 20:55] LABS: Base Excess VBG 0.6 mEq/L; HCO3 VBG 25 mmol/L; Oxygen Saturation VBG < 60.0 %; PCO2 VBG 36 mmHg (38-50); PO2 VBG 25 mmHg; pH VBG 7.44 (7.36-7.41)
[2024-07-17 21:14] LABS: Hematocrit (blood only) 38.8 % (42.0-52.0); Hemoglobin 13.1 g/dl (14.0-18.0); Mean Corpuscular Hemoglobin 32.3 pg (25.0-34.0); Mean Corpuscular Hgb Conc 33.8 g/dL (32.0-36.0); Mean Corpuscular Volume 95.6 fL (80.0-100.0); Mean Platelet Volume 11.3 fL (9.4-12.4); Platelet Count 102 K/uL (130-400); RDW Coefficient of Variation 14.6 % (11.5-14.5); RDW Standard Deviation 51.2 fL (36.4-46.3); Red Blood Count 4.06 M/uL (4.70-6.10); White Blood Count 0.25 K/ul (4.8-10.8)
[2024-07-17 21:16] LABS: Neutrophils # (auto) < 0.50 K/uL (1.40-6.50)
[2024-07-17 21:18] LABS: Alanine Aminotransferase 22 U/L (7-52); Albumin Globulin Ratio 1.1 (0.9-2); Alkaline Phosphatase 57 U/L (34-104); Anion Gap 9 (3-11); Aspartate Aminotransferase 18 U/L (13-39); BUN Creatinine Ratio 22.1 (10-20); Bilirubin,Total 1.6 mg/dl (0.2-1.0); Blood Urea Nitrogen 38 mg/dl (6-23); Calcium 9.1 mg/dl (8.6-10.3); Carbon Dioxide 23 mmol/L (21-32); Chloride 98 mmol/L (98-107); Globulin 3.4 gm/dl (2.5-4.0); Glucose 182 mg/dl (70-99(Fasting)); Potassium 5.1 mmol/L (3.5-5.1); Sodium 130 mmol/L (136-145); Total Protein 7.1 gm/dl (6.0-8.3)
[2024-07-17 21:25] LABS: Troponin I High Sensitivity 29.2 pg/ml (0-20)
[2024-07-17 21:28] LABS: INR 1.1 (0.9-1.1); Prothrombin Time 12.1 Seconds (9.0-12.0)
[2024-07-17] MEDS ORDERED: VANCOMYCIN HCL 1,400 MG in SODIUM CHLORIDE 0.9% 500 ML IV ONE (21:57)
[2024-07-17] MEDS ORDERED: VANCOMYCIN CONSULT ACTIVE PRN (21:57)
--- NOTE | 2024-07-17 22:52 | History & Physical Report ---
Date of Service July 17, 2024 Assessment & Plan (1) Neutropenia: (2) Pneumonia: (3) Oral thrush: (4) Adenocarcinoma of left lung, stage 3: (5) Chronic deep vein thrombosis (DVT) of left peroneal vein: (6) Chronic obstructive pulmonary disease: (7) Hyperlipemia: Plan 79yo male with history of stage 3 Adenocarcinoma of the lung presently receiving chemotherapy (carboplatin/paclitaxel) and XRT presenting with several days of generalized weakness, fatigue as well as cough, MO/SOB, nausea and poor appetite. Patient neutropenic (Neutrophil <0.5). CXR concerning for left sided PNA. #Neutropenia - patient neutropenic on today's labs. Neutrophil = <0.5 K/ul. Last checked on 07/13/2024 and found to be normal at 2.74. Patient presently afebrile but does endorse some elevated temperatures at home - to 100 degrees. Suspect possible PNA as infectious source, likely causing patient's symptoms. -Admit to medical with telemetry -Maintain Neutropenic isolation precautions -Follow blood cultures sent from ER -Check sputum culture -Check MRSA nares -Continue Cefepime 2gm IV q 8 hours -Azithromycin 500mg po now and 250mg po daily -LR at 100mL/hr x 1L #Pneumonia - possible LLL PNA. Patient had a CXR performed on 07/14/24 with similar findings. Has not been on antibiotics. Likely cause for his generalized weakness, fatigue, SOB, poor appetite and nausea. -Follow blood cultures sent from ER -Check sputum cultures -Check MRSA nares to determine need for expanded coverage -Check Mg and PO4 x 1 for generalized weakness, poor oral intake -O2 as needed and qHS -Tylenol as needed for pain or fever -Zofran as needed for nausea #Adenocarcinoma of the Lung -Continue Valcyte 1000mg po daily for chronic suppression -Imodium PRN diarrhea -Zofran PRN nausea -Tylenol PRN pain #Oral thrush - patient denies dysphagia/odynophagia -Nystatin 5mL po QID swish and spit #Chronic DVT - on anticoagulation with Apixaban -Continue Apixaban 5mg po BID. Dose ordered for this evening #COPD - no wheeze appreciated on exam -Continue Trelegy or formulary equivalent -Continue Albuterol PRN #Hyperlipidemia -Continue Atorvastatin History of Present Illness Chief Complaint: generalize weakness, fatigue, PNA and neutropenia Primary Care Provider: Efrem Estevez DO Nilesh Davis is a pleasant 79yo male with history of adenocarcinoma of the left lung on chemotherapy (carboplatin/paclitaxel) and XRT presenting with generalized weakness, fatigue, SOB and subjective fevers ongoing for the last several days. Patient received his last chemotherapy treatment on 07/14/2024. He reports generalized weakness, fatigue, SOB and MO for the last several days. Also with subjective fevers at home - temperatures of 100 that have been intermittent since 07/14. He has an ongoing cough which is occasionally productive for yellow sputum. Also with poor appetite and decreased oral intake as well as oral thrush. Patient denies painful swallowing or difficulty swallowing at this time (has had this in the past). He has had episodes of nausea as well over the last few days. No vomiting. Chronic loose stools with no significant change in frequency or quality - takes Imodium as needed. Patient has supplemental O2 at home which he uses up to 3L as needed, mostly with activity. He uses 1L qHS a well. In the ER patient is afebrile, tachycardic with HR of 100bpm. Blood pressure stable. Saturating 89% on room air. ER Course: Atorvastatin 20mg - ordered Eliquis 5mg PO - ordered Cefepime 2gm IV - ordered Vancomycin 1500mg - Ordered NSS x 1L Allergies Allergy/AdvReac Type Severity Reaction Status Date / Time JUAN R Inhibitors AdvReac Intermediate hyperkalemi Verified 07/05/24 12:18 a amlodipine AdvReac swelling Verified 07/05/24 12:18 Home Medications Medication Instructions Recorded Confirmed Type vitamin E succinate 268 mg (400 400 units PO QAM 11/30/18 07/17/24 History unit) tablet albuterol sulfate 90 mcg/actuation 2 inh inhalation QID PRN shortness 05/28/23 07/17/24 Rx aerosol inhaler of breath or wheezing #8.5 grams ascorbic acid (vitamin C) 500 mg 500 mg PO QAM 07/02/23 07/17/24 History tablet cholecalciferol (vitamin D3) 50 50 mcg PO QAM 07/02/23 07/17/24 History mcg (2,000 unit) capsule atorvastatin 20 mg tablet (Lipitor) 20 mg PO QPM #90 tabs 09/14/23 07/17/24 Rx Oxygen Home 11/16/23 07/17/24 History apixaban 5 mg tablet (Eliquis) 5 mg PO BID #90 tabs 03/15/24 07/17/24 Rx Portable Oxygen #1 ea 04/18/24 07/17/24 Rx carboxymethylcellulose sodium 0.5 1 drp ophthalmic (eye) TID 06/07/24 07/17/24 History % eye drops (Refresh Tears) valacyclovir 1 gram tablet 1,000 mg PO DAILY 06/07/24 07/17/24 History ondansetron HCl 8 mg tablet 8 mg PO Q8H PRN N/V 06/27/24 07/17/24 History prednisolone acetate 1 % eye 1 drp OPL BID 06/27/24 07/17/24 History drops,suspension prochlorperazine maleate 10 mg 10 mg PO Q6H PRN Nausea 06/27/24 07/17/24 History tablet (Compazine) fluticasone fur. 100 mcg-umeclid 1 inh inhalation QAM #3 Inhalers 06/28/24 07/17/24 Rx 62.5 mcg-vilant 25 mcg inhalat.powder (Trelegy Ellipta) Magic Mouthwash 300 mL mouthwash 10 ml mucous membrane ACHS PRN 07/11/24 07/17/24 Rx sorethroat #300 mL Past Med/Surg History Problem List (Updated 07/17/24 @ 23:07 by Alisha Byers DO) Pneumonia Oral thrush Mitral regurgitation Chronic respiratory failure with hypoxia, on home O2 therapy Palliative care by specialist Pulmonary embolism 05/2023- on Eliquis Chronic deep vein thrombosis (DVT) of left peroneal vein 05/2023- on Eliquis Mucositis PAF (paroxysmal atrial fibrillation) Chronic diastolic heart failure Pancytopenia due to antineoplastic chemotherapy WBC and plts WNL on 07/14/23 labs; chronic anemia Thrombocytopenia due to enhanced destruction, immune likely septic etiology plts WNL 07/14/23 Lower extremity edema Adenocarcinoma of left lung, stage 3 (Chronic 01/27/23) Hypoxia (Acute) Pneumothorax after biopsy 01/2023 History of abdominal aortic aneurysm repair Chronic obstructive pulmonary disease Medical History Epistaxis 05/2023 Candidiasis of mouth and esophagus Herpetic keratoconjunctivitis Deep vein thrombosis of right lower extremity 05/2023- on Eliquis Pseudomonas aeruginosa infection May 2023- treated Heart failure with mildly reduced ejection fraction (HFmrEF) Follows with [facility] EF 55% on most recent ECHO 07/17/23 Per HF visit 06/29/23- no current symptoms, not excessively hypervolemic on exam; ordered repeat ECHO- if EF normal- likely will not require penitentiary follow up with HF clinic (EF on 07/2023 ECHO normal) Chronic hypoxic respiratory failure 1.5 lpm via n/c at rest and up to 5 lpm via n/c with activity Elevated hemoglobin A1c 7.4 in 04/2023 Glucose WNL on 07/2023 labs History of abdominal aortic aneurysm (AAA) s/p repair 2015- per 04/21/23 A/P CT scan- " Aortoiliac stent graft. No abdominal aortic aneurysm" On anticoagulant therapy Hx of sepsis (04/2023) pseudomonas sepsis - inpatient April 2023 at [facility] History of Pseudomonas pneumonia May 2023. inpatient at [facility]. resolved at this time. Atrial fibrillation follows with [facility] - Dr Arevalo and also started seeing [facility] [place] Eliquis Pulmonary embolism Presumed per records - 05/2023 -- on Eliquis Herpetic keratoconjunctivitis Mid May 2023- follows with Dr. Shaver- treated with Valtrex and gancylovir gel per records (pt unaware, states he has some kind of eye infection) following with Dr Shaver - current, but is getting better. On home oxygen therapy 1.5 lpm via n/c at rest and up to 5 lpm via n/c with activity Adenocarcinoma of left lung, stage 3 x3 chemotherapy treatments and radiation treatments, finished 04/2023. no surgical intervention. Hx of pneumothorax (01/28/23) s/p bronchoscopy with biopsy - treated at [facility] Emergency Room with chest tube. Left leg DVT dx 05/2023 - placed on Eliquis. BPH (benign prostatic hyperplasia) Multiple pulmonary nodules determined by computed tomography of lung Kidney stones hx of kidney stones with lithotripsy. nonobstructing on most recent imaging PVC (premature ventricular contraction) on occasion Hypertension Diverticulosis Hyperlipemia COPD (chronic obstructive pulmonary disease) well controlled per pt > no res inh use Surgical History Hx of chest tube placement (01/28/23) History of bronchoscopy (01/27/23) with biopsy History of aortic aneurysm repair endovascular > [facility] [place] > 2016 > follows with [facility] cardiology annually. History of cataract surgery bilat History of tooth extraction dental implants History of lithotripsy History of inguinal hernia repair left x 1, right x 2. H/O colonoscopy 07/2020 repeat 5 years Family History Father Colon cancer Colorectal cancer Family/Other Heart disease Hypertension Mother Stroke Denies family history of Ovarian cancer Prostate cancer Myocardial infarction Breast cancer Social History Smoking Status: Former smoker Tobacco Type: Cigarettes Age Started Using Tobacco: 32; Age Quit Using Tobacco: 78; packs per day: 0.5; Cigarettes Per Day: 10 cigs per day; Second Hand Exposure: No; Do You Dip or Chew Tobacco: No; Hx Alcohol Use: No Hx Substance Use: No Preferred Language: Citizen Of [place] Communication Ability: Effective Visual Impairment: No Limitations Hearing Ability: Normal Geropsychologist Required: No Beliefs That Will Affect Care: None marital status: Current Living Situation: Spouse Current Living Situation Comment: lives with current occupational status: 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 How many Children do You have: 1 Feels Safe at Home: Yes Childhood Exposure to Second-Hand Smoke: No caffeine: Yes Dental Care, Regularly: Yes Physical Activity Frequency: Does not Exercise Seatbelt Use: always Sunscreen Use: Yes Assistive Devices: Oxygen - Continuous Review of Systems Review of Systems: All systems reviewed & are unremarkable except as noted in HPI & below Physical Exam Physical Exam: General: patient resting comfortably, NAD, non-toxic in appearance, AA&O x 4 Skin: warm, dry, intact, no rashes or lesions HEENT: NC/AT, PERRL, EOMI, anicteric sclera, conjunctiva without injection, external ear normal to inspection and nontender, nares patent, DRY mucus membranes, dentition intact, Small patches of thrush present on soft palate and buccal mucosa, neck supple, trachea midline, no LAD, no thyromegaly, no JVD Heart: +S1/S2, regular, no m/r/g Lungs: equal air entry bilaterally, crackles present at left base and left mid- lung field, no rales/rhonchi Abd: +BS, soft, NT/ND, no masses/organomegaly/ascites Ext: warm, 2+ pulses in UE/LE bilaterally, no clubbing/cyanosis or edema Neuro: nonfocal, patient AA&O x 4, speech intact, no facial droop, moving all extremities on command with equal strength 5/5 Results & Data Results & Data Vital Signs (Past 12 Hours) Vital Signs Temp Pulse Resp BP Pulse Ox O2 Del Method O2 Flow Rate 07/17/24 21:54 100 H 20 90 Room Air 07/17/24 21:48 94 H 20 107/73 96 Nasal Cannula 1 07/17/24 21:38 85 L Room Air 07/17/24 20:43 93 H 07/17/24 20:12 37.2 C 113 H 18 100/62 89 L Nasal Cannula 1 Laboratory Results Laboratory Results WBC 0.25 K/ul (4.8-10.8) L* 07/17/24 20:37 RBC 4.06 M/uL (4.70-6.10) L 07/17/24 20:37 Hgb 13.1 g/dl (14.0-18.0) L 07/17/24 20:37 Hct 38.8 % (42.0-52.0) L 07/17/24 20:37 MCV 95.6 fL (80.0-100.0) 07/17/24 20:37 MCH 32.3 pg (25.0-34.0) 07/17/24 20:37 MCHC 33.8 g/dL (32.0-36.0) 07/17/24 20:37 RDW Std Deviation 51.2 fL (36.4-46.3) H 07/17/24 20:37 RDW Coeff of Fany 14.6 % (11.5-14.5) H 07/17/24 20:37 Plt Count 102 K/uL (130-400) L 07/17/24 20:37 MPV 11.3 fL (9.4-12.4) 07/17/24 20:37 Neut # (Auto) < 0.50 K/uL (1.40-6.50) L* 07/17/24 20:37 PT 12.1 Seconds (9.0-12.0) H 07/17/24 20:37 INR 1.1 (0.9-1.1) 07/17/24 20:37 VBG pH 7.44 (7.36-7.41) H 07/17/24 20:37 VBG pCO2 36 mmHg (38-50) L 07/17/24 20:37 VBG pO2 25 mmHg 07/17/24 20:37 VBG HCO3 25 mmol/L 07/17/24 20:37 VBG O2 Saturation < 60.0 % 07/17/24 20:37 VBG Base Excess 0.6 mEq/L 07/17/24 20:37 Sodium 130 mmol/L (136-145) L 07/17/24 20:37 Potassium 5.1 mmol/L (3.5-5.1) 07/17/24 20:37 Chloride 98 mmol/L (98-107) 07/17/24 20:37 Carbon Dioxide 23 mmol/L (21-32) 07/17/24 20:37 Anion Gap 9 (3-11) 07/17/24 20:37 BUN 38 mg/dl (6-23) H 07/17/24 20:37 Creatinine 1.72 mg/dl (0.6-1.4) H 07/17/24 20:37 Est Cr Clr Drug Dosing Not Reportable 07/17/24 20:37 eGFR 40.44 07/17/24 20:37 BUN/Creatinine Ratio 22.1 (10-20) H 07/17/24 20:37 Glucose 182 mg/dl (70-99(Fasting)) H 07/17/24 20:37 Calcium 9.1 mg/dl (8.6-10.3) 07/17/24 20:37 Total Bilirubin 1.6 mg/dl (0.2-1.0) H 07/17/24 20:37 AST 18 U/L (13-39) 07/17/24 20:37 ALT 22 U/L (7-52) 07/17/24 20:37 Alkaline Phosphatase 57 U/L (34-104) 07/17/24 20:37 Troponin I High Sens 29.2 pg/ml (0-20) H 07/17/24 20:37 B-Natriuretic Peptide 183 pg/ml (0-100) H 07/17/24 20:37 Total Protein 7.1 gm/dl (6.0-8.3) 07/17/24 20:37 Albumin 3.7 gm/dl (3.4-5.0) 07/17/24 20:37 Globulin 3.4 gm/dl (2.5-4.0) 07/17/24 20:37 Albumin/Globulin Ratio 1.1 (0.9-2) 07/17/24 20:37 SARS-CoV-2 (PCR) NEGATIVE (Negative) 07/17/24 20:41 ECG Additional Comments: Per my interpretation study shows NSR at 100bpm, normal axis, MP=312, QRS=90, ZUe=417, possible inferior infarct, TWI in inferior leads Code Status & VTE Plan VTE Prophylaxis Plan VTE Prophylaxis will be ordered: Yes PG Care Time/CCT Total # of Minutes Spent Total Time Spent with Patient: Total time spent is greater than 50% in coordination of care (as documented) at patient's floor/unit and/or counseling patient: Coding Level of Care Code 67253 INT INP/OBS CARE 3/75MIN Diagnoses Neutropenia D70.9 Pneumonia J18.9 Oral thrush B37.0 Adenocarcinoma of left lung, stage 3 C34.92 Chronic deep vein thrombosis (DVT) of left peroneal vein I82.552 Centrilobular emphysema J43.2 COPD type: emphysema Emphysema type: centrilobular Hyperlipemia E78.5 (6) 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
[2024-07-17] MEDS: SODIUM CHLORIDE 0.9% 1,000 ML IV ONE (23:02)
[2024-07-17] MEDS: CEFEPIME 2000MG 2,000 MG/20 ML SYR IV STA (23:02)
[2024-07-17 23:07] LABS: Troponin I High Sensitivity 27.8 pg/ml (0-20)
[2024-07-17] MEDS ORDERED: ALBUTEROL HFA 8 GM INHALER INH PRN (23:36)
[2024-07-17] MEDS ORDERED: ACETAMINOPHEN 325 MG TAB PO PRN (23:36)
[2024-07-17] MEDS: VANCOMYCIN HCL 1,500 MG in SODIUM CHLORIDE 0.9% 500 ML IV ONE (23:47)
[2024-07-18] MEDS: APIXABAN 5 MG TABLET PO ONE (00:01)
[2024-07-18] MEDS: ATORVASTATIN 20 MG TAB PO STA (00:02)
[2024-07-18 00:05] LABS: Magnesium 1.4 mg/dl (1.7-2.4); Phosphorus 2.7 mg/dl (2.5-4.9)
[2024-07-18] MEDS: AZITHROMYCIN 250 MG TAB PO ONE (00:26)
[2024-07-18] MEDS: APIXABAN 5 MG TABLET PO SCH (00:27)
[2024-07-18] MEDS: LACTATED RINGER'S 1,000 ML IV SCH (00:27)
--- NOTE | 2024-07-18 00:48 | XRay Report ---
Exam(s): XR CXR 1 VIEW EXAM: XR Chest, 1 View CLINICAL HISTORY: Dyspnea. TECHNIQUE: Frontal view of the chest. COMPARISON: 07/14/2024 FINDINGS: Heart is normal in size. Mild hypoventilation. Minimal right basilar atelectasis. Slight increase in left basilar consolidation/pneumonia. No pleural effusion or pneumothorax. Bones are unchanged. IMPRESSION: Slight increase in left basilar consolidation/pneumonia. Hypoventilation with minimal right basilar atelectasis. Electronically signed by: Shadi Roy M.D. 07/18/24 00:48 AM
[2024-07-18] MEDS: ONDANSETRON INJ 2 MG/ML 2 ML VIAL IV PRN (02:45)
[2024-07-18 05:10] LABS: BUN Creatinine Ratio 24.8 (10-20); Bilirubin Direct 0.3 mg/dl (0-0.2); Bilirubin,Total 1.3 mg/dl (0.2-1.0); Calcium 7.9 mg/dl (8.6-10.3); Potassium 4.7 mmol/L (3.5-5.1); Total Protein 5.8 gm/dl (6.0-8.3)
[2024-07-18 05:29] LABS: Hematocrit (blood only) 32.6 % (42.0-52.0); Hemoglobin 11.2 g/dl (14.0-18.0); Mean Corpuscular Hemoglobin 32.4 pg (25.0-34.0); Mean Corpuscular Hgb Conc 34.4 g/dL (32.0-36.0); Mean Corpuscular Volume 94.2 fL (80.0-100.0); Mean Platelet Volume 10.8 fL (9.4-12.4); Platelet Count 74 K/uL (130-400); RDW Coefficient of Variation 14.7 % (11.5-14.5); RDW Standard Deviation 50.6 fL (36.4-46.3); Red Blood Count 3.46 M/uL (4.70-6.10); White Blood Count 0.25 K/ul (4.8-10.8)
[2024-07-18] MEDS ORDERED: NON-FORMULARY MEDICATION (Fluticasone-Umeclidin-Vilanter [Trelegy Ellipta] 100-62.5-25 mcg INH SCH (09:00)
[2024-07-18] MEDS: valACYclovir HCL 500 MG TABLET PO SCH (10:36)
[2024-07-18] MEDS: NYSTATIN SUSP 500,000 U/5 ML UDC PO SCH (10:36)
[2024-07-18] MEDS: CEFEPIME 2000MG 2,000 MG/20 ML SYR IV SCH (10:36)
[2024-07-18] MEDS: AZITHROMYCIN 250 MG TAB PO SCH (10:37)
[2024-07-18] MEDS: LOPERAMIDE HCL 2 MG CAP PO PRN (10:49)
[2024-07-18] MEDS: UMECLIDINIUM/VILANTEROL 62.5/25MCG 7 PUFFS/INHALER INH SCH (12:36)
[2024-07-18] MEDS: FLUTICASONE FUROATE 100MCG 14 PUFFS/INHALER INH SCH (12:36)
--- NOTE | 2024-07-18 13:34 | Electrocardiogram Report ---
Test Reason : Blood Pressure : */* mmHG Vent. Rate : 100 BPM Atrial Rate : 100 BPM P-R Int : 136 ms QRS Dur : 90 ms QT Int : 330 ms P-R-T Axes : -6 11 -12 degrees QTcB Int : 425 ms Normal sinus rhythm possible Inferior infarct , age undetermined Incomplete right bundle branch block Abnormal ECG When compared with ECG of 29-May-2023 16:36, T wave inversion now evident in Inferior leads Nonspecific T wave abnormality no longer evident in Anterior leads Confirmed by Ben Huff ([id number] on 07/18/2024 1:34:37 PM Referred By: REFERRED SELF Confirmed By: Ben Huff
[2024-07-18 13:40] LABS: Neutrophils # (auto) < 0.50 K/uL (1.40-6.50)
[2024-07-18 14:47] LABS: Appearance Urine Clear (Clear); Bacteria Urine Automated None Seen (None Seen); Bilirubin Urine Negative (Negative); Blood Urine Negative (Negative); Cast Urine Automated 0-2 /lpf (0-2); Color Urine Yellow; Epithelial Cell Urine Auto 0-2 /hpf (0-2); Glucose Urine UA Negative (Negative); Ketones Urine Trace (Negative); Leukocyte Esterase Urine Negative (Negative); Nitrite Urine Negative (Negative); Protein Urine 2+ (Negative); RBC Urine Automated 0-2 /hpf (0-2); Specific Gravity Urine 1.025 (1.000-1.030); Urobilinogen Urine Negative (Negative); WBC Urine Automated 0-5 /hpf (0-5); pH Urine 5.5 (4.5-7.5)
[2024-07-18 15:30] LABS: A calco-baum cmplx NotReported Not Detected (NotDetected); Bact fragilis Not Reported Not Detected (NotDetected); Blood Culture Id Panel See PCR Comment (NotDetected); C auris Not Reported Not Detected (NotDetected); CTX-M Resistant Gene Not Detected (NotDetected); Calbicans Not Reported Not Detected (NotDetected); Candida glabrata Not Reported Not Detected (NotDetected); Candida krusei Not Reported Not Detected (NotDetected); Cneoformans/gatti Not Reported Not Detected (NotDetected); Cparapsilosis Not Reported Not Detected (NotDetected); Ctropicalis Not Reported Not Detected (NotDetected); E cloacae compx Not Reported Not Detected (NotDetected); Efaecalis Not Reported Not Detected (NotDetected); Efaecium Not Reported Not Detected (NotDetected); Enterobacterales Not Reported Not Detected (NotDetected); Escherichia coli Not Reported Not Detected (NotDetected); H influenzae Not Reported Not Detected (NotDetected); IMP Resistant Gene Not Detected (NotDetected); K aerogenes Not Reported Not Detected (NotDetected); KPC Resistant Gene Not Detected (NotDetected); Koxytoca Not Reported Not Detected (NotDetected); Kpneumoniae grp Not Reported Not Detected (NotDetected); Lmonocyt Not Reported Not Detected (NotDetected); N meningitidis Not Reported Not Detected (NotDetected); NDM Resistant Gene Not Detected (NotDetected); P aeruginosa Not Reported DETECTED (NotDetected); Proteus spp Not Reported Not Detected (NotDetected); Salmonella spp Not Reported Not Detected (NotDetected); Staph lugdunensis Not Reported Not Detected (NotDetected); Staph spp. Not Reported Not Detected (NotDetected); Staphaureus Not Reported Not Detected (NotDetected); Staphepi Not Reported Not Detected (NotDetected); Stenmaltophilia Not Reported Not Detected (NotDetected); Strep agal(GrpB) Not Reported Not Detected (NotDetected); Strep pneum Not Reported Not Detected (NotDetected); Strep pyog (GrpA) Not Reported Not Detected (NotDetected); Strep spp Not Reported Not Detected (NotDetected); VIM Resistant Gene Not Detected (NotDetected)
[2024-07-18 15:55] LABS: Pseudomonas aeruginosa DETECTED (NotDetected)
--- NOTE | 2024-07-18 18:33 | Hospitalist Progress Note ---
Date of Service July 18, 2024 Assessment & Plan (1) Neutropenia: (2) Pneumonia: (3) Oral thrush: (4) Adenocarcinoma of left lung, stage 3: (5) Chronic deep vein thrombosis (DVT) of left peroneal vein: (6) Chronic obstructive pulmonary disease: (7) Hyperlipemia: Plan 79 years old male with PMH of FULL CODE @ home, overweight with BMI 26.6 (height 170.2 cm; weight 77.0 kg), hyperlipidemia on atorvastatin 20mg PO qpm, former tobacco abuse with subsequent development of end-stage COPD due to chronic hypoxic respiratory failure on 1.5 liters/minute O2 via nasal cannula at rest and up to 5 liters/minute with exertion, not on home steroids, chronic systolic CHF with reduced LVEF 45-50%, normal RV systolic function, and chronic diastolic CHF with grade II LV diastolic dysfunction (as noted on 04/22/2023, 7:43am TTE, CARDS Dr. Kasi iMke), AAA s/p repair with aorto-iliac stent graft and no AAA (04/21/2023) on atorvastatin 20mg PO qpm, non-occlusive thrombus in left common femoral vein, left greater saphenous vein, and left superficial femoral vein (as noted on 05/17/2023 bilateral LE venous doppler); left peroneal DVT (not present on 05/17/2023 bilateral LE venous doppler)(as noted on 05/25/2023 LLE venous doppler), new occlusive thrombus in right popliteal, peroneal, and posterior tibial veins (as noted on 05/29/2023 bilateral LE venous doppler), now on apixaban 5mg PO bid, PAF not on any rate- controlling or rhythm-controlling medications, just on apixaban 5mg PO bid, s/p hospitalization (04/21/2023 - 05/05/2023) for sepsis due to pseudomonal CAP with pseudomonal bacteremia (as noted on 04/20/2024, 1:26pm, 1:45pm, 2:59pm, and 3:21pm positive blood cultures; blood culture negative x 2 (04/23/2024, 9:56am), pneumothorax after lung biopsy (01/2023), stage III left lung CA, no surgical intervention, on chemotherapy (carboplatin/paclitaxel every (started on 07/07/2024; last administered on 07/14/2024, [facility], Heme-Onc Dr. Jaqueline Roque)) and XRT with [facility] RAD-ONC Dr. Katya Rice, followed by watery, non-bl oody, non-oily diarrheal stools that began after patient started receiving carboplatin/paclitaxel, and which has been treated successfully with loperamide prn diarrheal stools, who presented to [facility] ER on 07/17/2024 with complaints of several days of generalized weakness, fatigue, dry cough without hemoptysis, SOB/MO, nausea (without vomiting), anorexia, and chronic watery, non-bloody, non-oily diarrheal stools. Patient was subsequently admitted to the inpatient hospitalist service @ [facility] on 07/17/2024 with the following diagnoses: 1. Xfebu-jy-ygrsffb hypoxic respiratory failure due to acute pseudomonal LLL CAP with hematogenous dissemination (cf., R/O recurrent pseudomonal bacteremia with blood culture #1 (07/17/2024, 8:37pm): GNR; blood culture #2 (07/17/2024, 10:15pm): GNR)). 2. Sepsis due to acute LLL CAP. 3. Pancytopenia with admission WBC 0.25, no differential, absolute neutropenia with ANC < 500, Hb 13.1, MCV 95.6, MCHC 33.8, platelet 102 (07/17/2024, 8:37pm). 4. Acute hypovolemic hyponatremia with admission Na 130 mmol/L (07/17/2024, 8:37pm). 5. Acute kidney injury with admission creatinine 1.72 mg/dL (07/17/2024, 8:37pm)-on-CKD stage III with baseline creatinine range, 1.45 - 1.69 (10/30/2023 - 07/01/2024). 6. Acute oral thrush. 7. Acute type II NSTEMI with troponin-I #1 29.2 pg/mL (07/17/2024, 8:37pm) and troponin-I #2 27.8 pg/mL (07/17/2024, 10:23pm). The following medical issues are being addressed: 1. Skhwo-qn-dhsossl hypoxic respiratory failure due to acute pseudomonal LLL CAP with hematogenous dissemination (cf., R/O recurrent pseudomonal bacteremia with blood culture #1 (07/17/2024, 8:37pm): GNR; blood culture #2 (07/17/2024, 10:15pm): GNR)). Continue cefepime 2g IV q12 (day #1 on 07/17/2024, 11:02pm; day #2 on 0 07/18/2024, 10:36am). Check vitals, chest exam, WBC w/diff, lactic acid, procalcitonin, blood culture #1 (07/17/2024, 8:37pm): GNR, and blood culture #2 (07/17/2024, 10:15pm): GNR) in the 07/19/2024 am. 2. Sepsis, NOT septic shock, due to acute LLL CAP with hematogenous dissemination (cf., bacteremia with blood culture #1 (07/17/2024, 8:37pm): GNR; blood culture #2 (07/17/2024, 10:15pm): GNR)). See bullet #1 above. 3. Pancytopenia with admission WBC 0.25, no differential, ANC < 500, Hb 13.1, MCV 95.6, MCHC 33.8, platelet 102 (07/17/2024, 8:37pm). Etiology of pancytopenia is probably due to a combination of (1) chemotherapy (carboplatin/paclitaxel every (started on 07/07/2024; last administered on 07/14/2024, [facility], Heme-Onc Dr. Jaqueline Roque)) and (2) sepsis due to acute LLL CAP with hematogenous dissemination (cf., bacteremia with blood cult ure #1 (07/17/2024, 8:37pm): GNR; blood culture #2 (07/17/2024, 10:15pm): GNR)). Continue neutropenic precautions. Hold OFF starting patient on Neupogen on 07/18/2022 as Neupogen can cause pneumonitis and may exacerbate patient's acute LLL CAP as per Heme-Onc Dr. Jaqueline Roque. Hence, I will check repeat CBC with differential in the 07/19/2024 am. 4. Acute hypovolemic hyponatremia with admission Na 130 mmol/L (07/17/2024, 8:37pm). cf., baseline Na range, 136-140 mmol/L (04/30/2023 - 06/29/2024). Etiology of acute hypovolemic hyponatremia is most probably due to increased insensible losses of water due to increased perspiration and respiration, which in turn, is due to acute LLL CAP with hematogenous dissemination (cf., bacteremia with blood culture #1 (07/17/2024, 8:37pm): GNR; blood culture #2 (07/17/2024, 10:15pm): GNR)). Patient subsequently received 1 liter of 0.9% NS @ 999 mL/hr (07/17/2024, 11:02pm), followed by 1 liter of lactated Ringers @ 100 mL/hr (07/18/2024, 12:27am). Subsequently, acute hypovolemic hyponatremia is RESOLVING with post-hydration Na 132 mmol/L (07/18/2024, 4:38am). Subsequently, I have opted to rehydrate patient with 1 liter of 0.9% NS @ 77 mL/hr (07/18/2024, 6:57pm), based on a delivery rate of 1 mL of 0.9% NS per kg of body weight per hour, and a body weight of 77.0 kg. I will check repeat Na level in the 07/19/2024 am. 5. Acute kidney injury with admission creatinine 1.72 mg/dL (07/17/2024, 8:37pm). cf., CKD stage III with baseline creatinine range, 1.45 - 1.69 (10/30/2023 - 07/01/2024). Etiology of acute kidney injury is most probably due to increased insensible losses of water due to increased perspiration and respiration, which in turn, is due to acute LLL CAP with hematogenous dissemination (cf., bacteremia with blood culture #1 (07/17/2024, 8:37pm): GNR; blood culture #2 (07/17/2024, 10:15pm): GNR)). Patient subsequently received 1 liter of 0.9% NS @ 999 mL/hr (07/17/2024, 11:02pm), followed by 1 liter of lactated Ringers @ 100 mL/hr (07/18/2024, 12:27am). Subsequently, acute kidney injury is RESOLVING with post-hydration creatinine 1.41 mg/dL (07/18/2024, 4:38am). Subsequently, I have opted to rehydrate patient with 1 liter of 0.9% NS @ 77 mL/hr (07/18/2024, 6:57pm), based on a delivery rate of 1 mL of 0.9% NS per kg of body weight per hour, and a body weight of 77.0 kg. I will check repeat creatinine level in the 07/19/2024 am. 6. Oral thrush. Due to immunocompromised state. Continue nystatin 5mL PO qid swish and spit (day #/ on 07/18/2024, 10:36am). 7. Acute type II NSTEMI with troponin-I #1 29.2 pg/mL (07/17/2024, 8:37pm) and troponin-I #2 27.8 pg/mL (07/17/2024, 10:23pm). Due to demand ischemia due to fjljj-qu-qsmdlue hypoxic respiratory failure due to acute pseudomonal LLL CAP with hematogenous dissemination (cf., R/O recurrent pseudomonal bacteremia with blood culture #1 (07/17/2024, 8:37pm): GNR; blood culture #2 (07/17/2024, 10:15pm): GNR)). Observe. Other secondary medical issues include: 7. Hyperlipidemia. Asymptomatic on home-scheduled atorvastatin 20mg PO qpm. 8. Former tobacco abuse with subsequent development of end-stage COPD due to chronic hypoxic respiratory failure on 1.5 liters/minute O2 via nasal cannula at rest and up to 5 liters/minute with exertion, not on home steroids. 9. Chronic systolic CHF with reduced LVEF 45-50%, normal RV systolic function, and chronic diastolic CHF with grade II LV diastolic dysfunction (as noted on 04/22/2023, 7:43am TTE, [facility] Dr. Kasi Mike). NOT acute exacerbation of chronic systolic/diastolic CHF. cf., most recent TTE (07/17/2023, 8:53am) with LVEF 55%, RV normal systolic function, and no mention of diastolic function (as per CAR[facility] Dr. Kyler Foley). 10. AAA s/p repair with aorto-iliac stent graft and no AAA (04/21/2023). Asymptomatic on home-scheduled atorvastatin 20mg PO qpm. 11. Non-occlusive thrombus in left common femoral vein, left greater saphenous vein, and left superficial femoral vein (as noted on 05/17/2023 bilateral LE venous doppler); left peroneal DVT (not present on 05/17/2023 bilateral LE venous doppler)(as noted on 05/25/2023 LLE venous doppler), new occlusive thrombus in right popliteal, peroneal, and posterior tibial veins (as noted on 05/29/2023 bilateral LE venous doppler), now on apixaban 5mg PO bid. 12. PAF not on any rate-controlling or rhythm-controlling medications, just on apixaban 5mg PO bid. cf., admission EKG (07/17/2024, 8:25pm): sinus tach @ 100, ME 136, TC 425, no acute ST depressions/elevations, TWI, or q waves (by my review). Admission and Anticipated Discharge Date Admission Date: July 17, 2024 Subjective "I feel weak and a little short of breath. I am coughing, but nothing comes up. No blood. No fevers or chills. No chest pains. I had chemotherapy (e.g., carboplatin/paclitaxel every (started on 07/07/2024; last administered on 07/14/2024, [facility], Heme-Onc Dr. Jaqueline Roque)) and I get radiation therapy Thursday-Thursday with RAD ONC Dr. Katya Rice for my lung cancer." Review of Systems Constitutional: Positive for generalized weakness, shortness of breath, dry cough. Negative for antecedent/coincident fevers, chills, diaphoresis, wheeze, sore throat, hemoptysis, chest pains, palpitations, pleurisy, nausea, vomiting, diarrhea, abdominal pain, pelvic pain, hematemesis, hematochezia, melena, hematuria, dysuria, frequency, urgency, headaches, dizziness, lightheadedness, visual changes, hearing changes, falls, syncope, trauma, travel history, sick contacts, or food/drug ingestions novel or new. All other review of systems are reported as negative by the patient on 07/18/2024. Physical Exam Constitutional: General: Comfortable, coherent, cooperative. Wide awake and alert. Not confused, lethargic, or obtunded. Patient speaks in complete, fluent, and articulate sentences without pause, with O2 sat 98% on 1 liter/minute O2 via nasal cannula (07/18/2024, 5:26pm). HEENT: Normocephalic, atraumatic. Extra-ocular muscles intact. P upils equally round and reactive to light. No nystagmus, gaze paresis, anisocoria, miosis, mydriasis, hyphema, scleral injection, conjunctivitis, or pterygium. No otorrhea. Thick white adherent plaque on tongue. No pharyngeal erythema, edema, or discharge. Neck: Supple, no stridor, bruit, goiter, or hepato-jugular reflux. Jugular venous pressure is estimated to be 3 cm above the sternal angle of [place], which in turn, is 5 cm above the level of the right atrium; with jugular venous pressure estimated to be 8 cm, then, there is no jugular venous distention on 07/18/2024. Lymphatics: No cervical (anterior/posterior), supraclavicular, infraclavicular, axillary, epitrochlear, or inguinal adenopathy. Chest: Symmetric rise and fall with respirations. Non-tender to palpation. Lungs: Clear to auscultation and percussion. No audible expiratory wheeze, egophony, pectoriloquy, increase in tactile fremitus, or flatness/dullness to percussion at the bases. Heart: Regular rate and rhythm. S1 and S2 noted. No S3 or S4 summation gallop. No tripartite friction rub. Grade II/ early systolic murmur @ LLSB without radiation to the carotids, axilla, or back, and which remains invariant in regards to the respiratory cycle. Abdomen: Soft, non-tender, non-distended. No rebound, guarding, Mcdaniels's sign, or organomegaly. Bowel sounds auscultated in all 4 quadrants. Extremities: No clubbing, cyanosis, or edema in upper extremities or lower extremities bilaterally. 2+ pedal pulses bilaterally. Skin: No decubitus ulcer, exanthem, or enanthem. Genito-urinary: No urethral discharge. No hair catheter. Neurology: Alert and oriented in regards to person, place, time, and situation. DTR+ and symmetric. 5/5 motor strength in all 4 extremities, both proximally and distally. No pronator drift. No facial droop. No dysarthria. Slight resting tremor in left leg AND left hand, both of which extinguish with voluntary movement. No masked facies. Psychiatry: No homicidal ideation. No suicidal ideation. No flat affect; smiles appropriately. Results & Data Results & Data Vital Signs (Past 12 Hours) Vital Signs Temp Pulse Pulse Resp BP BP Pulse Ox 07/18/24 17:26 07/18/24 15:20 36.3 C L 82 18 121/80 98 07/18/24 08:41 37.3 C 99 H 20 113/72 91 07/18/24 07:30 36.6 C 91 H 18 112/77 92 O2 Del Method O2 Flow Rate 07/18/24 17:26 Nasal Cannula 1 07/18/24 15:20 Nasal Cannula 2 07/18/24 08:41 Room Air 07/18/24 07:30 Room Air Laboratory Results WBC 0.25, no differential, ANC < 500, Hb 13.1, MCV 95.6, MCHC 33.8, platelet 102 (07/17/2024, 8:37pm). WBC 0.25, no differential, ANC < 500, Hb 11.2, MCV 94.2, MCHC 34.4, platelet 74 (07/18/2024, 4:38am). MRSA nares negative (07/18/2024, 1:37am). BIOFIRE respiratory panel (07/17/2024, 10:15pm): Pseudomonas aeruginosa+ Blood culture #1 (07/17/2024, 8:37pm): GNR Blood culture #2 (07/17/2024, 10:15pm): GNR Lactic acid #1 1.4 mmol/L (07/18/2024, 9:37am). Lactic acid #2 (07/18/2024, 6:16pm). Procalcitonin #1 0.56 ng/mL (07/18/2024, 9:37am). U/A (07/18/2024, 2:34pm): LE-, nitrite-, bacteria 0, WBC 0-5 INR 1.1 (07/17/2024, 8:37pm). VBG (07/17/2024, 8:37pm): 7.44 / 36 / 25 / 25 / O2 sat < 60% Na 130, K 5.1, BUN 38, creatinine 1.72, GFR 40.44, glucose 182, Ca 9.1, albumin 3.7, Ca corrected 9.3, PO4 2.7, Mg 1.4 (07/17/2024, 8:37pm). Na 132, K 4.7, BUN 35, creatinine 1.41, GFR 51.33, glucose 167, Ca 7.9, albumin 3.2, Ca corrected 8.5, Mg ___ (07/18/2024, 4:38am). AST 18, ALT 22, ALK PHOS 57, TBili 1.6 (07/17/2024, 8:37pm). AST 12, ALT 17, ALK PHOS 42, TBili 1.3 (07/18/2024, 4:38am). Troponin-I #1 29.2 pg/mL (07/17/2024, 8:37pm). Troponin-I #2 27.8 pg/mL (07/17/2024, 10:23pm). Diagnostic Findings Portable CXR (07/17/2024, 8:19pm): LLL infiltrate. RLL atelectasis. No effusion, cardiomegaly, pulmonary vascular congestion, or pneumothorax (by my review). EKG (07/17/2024, 8:25pm): sinus tach @ 100, ME 136, TC 425, no acute ST depressions/elevations, TWI, or q waves (by my review). PG Care Time/CCT Total # of Minutes Spent Total Time Spent with Patient: Total time spent is greater than 50% in coordination of care (as documented) at patient's floor/unit and/or counseling patient: Coding Level of Care Code 57771 SUB INP/OBS CARE 3/50MIN Diagnoses Neutropenia D70.9 Pneumonia J18.9 Oral thrush B37.0 Adenocarcinoma of left lung, stage 3 C34.92 Chronic deep vein thrombosis (DVT) of left peroneal vein I82.552 Centrilobular emphysema J43.2 COPD type: emphysema Emphysema type: centrilobular Hyperlipemia E78.5 (6) 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
[2024-07-18 18:58] LABS: Magnesium 1.4 mg/dl (1.7-2.4)
[2024-07-18] MEDS: SODIUM CHLORIDE 0.9% 1,000 ML IV ONE (19:17)
[2024-07-18] MEDS: MAGNESIUM SULFATE / D5W 1 GM/100 ML BAG IV SCH (20:04)
[2024-07-18] MEDS: ATORVASTATIN 20 MG TAB PO SCH (20:07)
--- NOTE | 2024-07-19 08:28 | XRay Report ---
XR chest 1V portable CLINICAL HISTORY: LLL pneumonia COMPARISON STUDY: 07/17/2024 FINDINGS: Heart size and pulmonary vasculature are normal. There is mild patchy opacity at the left l patt base, mildly improved. No other consolidation or pleural effusion. IMPRESSION: Persistent pneumonia left lung base, mildly improved. ACT 112: Negative or not required by law. Electronically signed by: Chau Cummins M.D. 07/19/2024 8:27 AM
[2024-07-19 08:29] LABS: BUN Creatinine Ratio 21.3 (10-20); Calcium 8.3 mg/dl (8.6-10.3); Creatinine Clr Calc Pharmacy 42.5 ml/min; Magnesium 2.5 mg/dl (1.7-2.4)
[2024-07-19 08:30] LABS: BUN Creatinine Ratio 21.3 (10-20); Calcium 8.3 mg/dl (8.6-10.3); Creatinine Clr Calc Pharmacy 42.5 ml/min; Potassium 4.1 mmol/L (3.5-5.1)
[2024-07-19 08:33] LABS: Hematocrit (blood only) 31.9 % (42.0-52.0); Hemoglobin 10.9 g/dl (14.0-18.0); Mean Corpuscular Hemoglobin 32.4 pg (25.0-34.0); Mean Corpuscular Hgb Conc 34.2 g/dL (32.0-36.0); Mean Corpuscular Volume 94.9 fL (80.0-100.0); Mean Platelet Volume 11.1 fL (9.4-12.4); Platelet Count 99 K/uL (130-400); RDW Coefficient of Variation 14.8 % (11.5-14.5); RDW Standard Deviation 51.3 fL (36.4-46.3); Red Blood Count 3.36 M/uL (4.70-6.10); White Blood Count 0.22 K/ul (4.8-10.8)
[2024-07-19 08:37] LABS: Neutrophils # (auto) < 0.50 K/uL (1.40-6.50)
--- NOTE | 2024-07-19 09:24 | Infectious Disease Consult ---
Date of Consultation July 19, 2024 Assessment & Plan (1) Pseudomonal bacteremia: (2) Neutropenia: (3) Pneumonia: (4) Oral thrush: Plan 79yo M with h/o metastatic lung cancer on chemo/XRT (on carboplatin/paclitaxel since 2023, last chemo 07/14, no port), PTX after biopsy, COPD, CHF, chronic hypoxia on home O2 (up to 3L), AAA s/p aortic aneurysm repair, pAfib, herpetic keratoconjunctivitis in 2023, recurrent oral ulcers/thrush, prior admissions in 2023 with Pseudomonas PNA and bacteremia (tx with cefepime), PE/DVT who presented on 07/17 with weakness, fatigue, subjective fevers, and SOB for the since his last chemo. Also with cough productive of yellow sputum, poor PO, thrush, nausea. In the ED, he was afebrile, tachycardic, O2 89% on RA and has been requiring 1L NC. Initial labs with WBC 0.25 (ANC < 500), Cr 1.72, AST/ALT wnl. Lactate neg. Elevated troponin. PCT 0.56. UA 0-5 WBC. MRSA screen neg. COVID neg. CXR with reticular nodular and patchy opacities at the left lower lung, increased c/f PNA. BCX returned with Pseudomonas aeruginosa. ID consulted 07/19. Will continue cefepime for Pseudomonal bacteremia with source likely PNA as seen on CXR. Repeat cultures are already in process. No hardware. # Pseudomonas bacteremia # LLL pneumonia # Neutropenia # Oral thrush # h/o lung cancer on chemo/XRT # h/o AAA s/p repair - f/u blood cx - Neida stopped doxycycline - continue cefepime 2g IV q12h - final regimen pending above Will continue to follow. If questions or concerns, contact via [employer] or Infectious Disease Call Center . Chanelle Neal MD [facility], Division of Infectious Diseases Consultation Information Consultation was provided via telemedicine using two-way real-time interactive telecommunication between the patient and the telemedicine provider. For the duration of the visit, the provider was performing the assessment from a different facility than the patient. This includesuse of bluetooth stethoscope forauscultationperformed by the telepresenter that the telemedicine provider can hear if described in the physical exam. Instructor Warper contact information: Please call [facility] Call Center . (Phone Number For Physician Use Only) After establishing a telemedicine visit, patient was: Patient was verified with two unique identifiers, Patient/authorized rep acknowledged consent and understanding and Gave permission to continue telehealth session Time Spent with Patient: Initial => 75 min History of Present Illness Reason for Consultation: GNR bacteremia Attending Physician: Sánchez Deleon MD History of Present Illness 79yo M with h/o metastatic lung cancer on chemo/XRT (on carboplatin/paclitaxel since 2023, last chemo 07/14, no port), PTX after biopsy, COPD, CHF, chronic hypoxia on home O2 (up to 3L), AAA s/p aortic aneurysm repair, pAfib, herpetic keratoconjunctivitis in 2023, recurrent oral ulcers/thrush, prior admissions in 2023 with Pseudomonas PNA and bacteremia (tx with cefepime), PE/DVT who presented on 07/17 with weakness, fatigue, subjective fevers, and SOB for the past several days. He has had ongoing cough productive of yellow sputum. Noted poor oral intake and thrush. No dysphagia. Noted nausea but no vomiting. Chronic loose stools with no significant change in frequency or quality - takes Imodium as needed. In the ED, he was afebrile, tachycardic, O2 89% on RA and has been requiring 1L NC. Initial labs with WBC 0.25 (ANC < 500), Cr 1.72, AST/ALT wnl. Lactate neg. Elevated troponin. PCT 0.56. UA 0-5 WBC. MRSA screen neg. COVID neg. CXR with reticular nodular and patchy opacities at the left lower lung, increased c/f PNA. BCX returned with Pseudomonas aeruginosa. ID consulted 07/19. On evaluation, patient reports that after his chemo, which is usually on , he gets fatigued and usually improves by that Thursday. However, this time, the weakness was ongoing. He did also not fevers in the high 90s. He also notes having a rash after chemo, has happened before and this usually resolves. No current rash. No open wounds. He does not have any joint replacements or cardiac devices/artificial valves. No joint pains/swelling. No back pain. He did have chills at home, but not here. He also reports significant nausea, but this has not recurred. Allergies Allergy/AdvReac Type Severity Reaction Status Date / Time JUAN R Inhibitors AdvReac Intermediate hyperkalemi Verified 07/05/24 12:18 a amlodipine AdvReac swelling Verified 07/05/24 12:18 Home Medications Medication Instructions Recorded Confirmed Type vitamin E succinate 268 mg (400 400 units PO QAM 11/30/18 07/17/24 History unit) tablet albuterol sulfate 90 mcg/actuation 2 inh inhalation QID PRN shortness 05/28/23 07/17/24 Rx aerosol inhaler of breath or wheezing #8.5 grams ascorbic acid (vitamin C) 500 mg 500 mg PO QAM 07/02/23 07/17/24 History tablet cholecalciferol (vitamin D3) 50 50 mcg PO QAM 07/02/23 07/17/24 History mcg (2,000 unit) capsule atorvastatin 20 mg tablet (Lipitor) 20 mg PO QPM #90 tabs 09/14/23 07/17/24 Rx Oxygen Home 11/16/23 07/17/24 History apixaban 5 mg tablet (Eliquis) 5 mg PO BID #90 tabs 03/15/24 07/17/24 Rx Portable Oxygen #1 ea 04/18/24 07/17/24 Rx carboxymethylcellulose sodium 0.5 1 drp ophthalmic (eye) TID 06/07/24 07/17/24 History % eye drops (Refresh Tears) valacyclovir 1 gram tablet 1,000 mg PO DAILY 06/07/24 07/17/24 History ondansetron HCl 8 mg tablet 8 mg PO Q8H PRN N/V 06/27/24 07/17/24 History prednisolone acetate 1 % eye 1 drp OPL BID 06/27/24 07/17/24 History drops,suspension prochlorperazine maleate 10 mg 10 mg PO Q6H PRN Nausea 06/27/24 07/17/24 History tablet (Compazine) fluticasone fur. 100 mcg-umeclid 1 inh inhalation QAM #3 Inhalers 06/28/24 07/17/24 Rx 62.5 mcg-vilant 25 mcg inhalat.powder (Trelegy Ellipta) Magic Mouthwash 300 mL mouthwash 10 ml mucous membrane ACHS PRN 07/11/24 07/17/24 Rx sorethroat #300 mL Patient History Medical History Epistaxis 05/2023 Candidiasis of mouth and esophagus Herpetic keratoconjunctivitis Deep vein thrombosis of right lower extremity 05/2023- on Eliquis Pseudomonas aeruginosa infection May 2023- treated Heart failure with mildly reduced ejection fraction (HFmrEF) Follows with [facility] EF 55% on most recent ECHO 07/17/23 Per HF visit 06/29/23- no current symptoms, not excessively hypervolemic on exam; ordered repeat ECHO- if EF normal- likely will not require usp follow up with HF clinic (EF on 07/2023 ECHO normal) Chronic hypoxic respiratory failure 1.5 lpm via n/c at rest and up to 5 lpm via n/c with activity Elevated hemoglobin A1c 7.4 in 04/2023 Glucose WNL on 07/2023 labs History of abdominal aortic aneurysm (AAA) s/p repair 2015- per 04/21/23 A/P CT scan- " Aortoiliac stent graft. No abdominal aortic aneurysm" On anticoagulant therapy Hx of sepsis (04/2023) pseudomonas sepsis - inpatient April 2023 at [facility] History of Pseudomonas pneumonia May 2023. inpatient at [facility]. resolved at this time. Atrial fibrillation follows with [facility] - Dr Arevalo and also started seeing [facility] Cardiology on Eliquis Pulmonary embolism Presumed per records - 05/2023 -- on Eliquis Herpetic keratoconjunctivitis Mid May 2023- follows with Dr. Shaver- treated with Valtrex and gancylovir gel per records (pt unaware, states he has some kind of eye infection) following with Dr Shaver - current, but is getting better. On home oxygen therapy 1.5 lpm via n/c at rest and up to 5 lpm via n/c with activity Adenocarcinoma of left lung, stage 3 x3 chemotherapy treatments and radiation treatments, finished 04/2023. no surgical intervention. Hx of pneumothorax (01/28/23) s/p bronchoscopy with biopsy - treated at [facility] Emergency Room with chest tube. Left leg DVT dx 05/2023 - placed on Eliquis. BPH (benign prostatic hyperplasia) Multiple pulmonary nodules determined by computed tomography of lung Kidney stones hx of kidney stones with lithotripsy. nonobstructing on most recent imaging PVC (premature ventricular contraction) on occasion Hypertension Diverticulosis Hyperlipemia COPD (chronic obstructive pulmonary disease) well controlled per pt > no res inh use Surgical History Hx of chest tube placement (01/28/23) History of bronchoscopy (01/27/23) with biopsy History of aortic aneurysm repair endovascular > [facility] > 2016 > follows with [facility] cardiology annually. History of cataract surgery bilat History of tooth extraction dental implants History of lithotripsy History of inguinal hernia repair left x 1, right x 2. H/O colonoscopy 07/2020 repeat 5 years Family History Father Colon cancer Colorectal cancer Family/Other Heart disease Hypertension Mother Stroke Denies family history of Ovarian cancer Prostate cancer Myocardial infarction Breast cancer Social History Smoking Status: Never smoker Tobacco Type: Cigarettes Age Started Using Tobacco: 32; Age Quit Using Tobacco: 78; packs per day: 0.5; Cigarettes Per Day: 10 cigs per day; Second Hand Exposure: No; Do You Dip or Chew Tobacco: No; Hx Alcohol Use: No Hx Substance Use: No Preferred Language: Romansh Communication Ability: Effective Visual Impairment: No Limitations Hearing Ability: Normal Equipment Maint Tech Required: No Beliefs That Will Affect Care: None marital status: Current Living Situation: Spouse Current Living Situation Comment: lives with current 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 How many Children do You have: 1 Feels Safe at Home: Yes Childhood Exposure to Second-Hand Smoke: No caffeine: Yes Dental Care, Regularly: Yes Physical Activity Frequency: Does not Exercise Seatbelt Use: always Sunscreen Use: Yes Assistive Devices: Oxygen - Continuous Review of System General: Awake, alert, no acute distress HEENT: NC/AT, EOMI, mmm, some thrush noted in the back of tongue Neck: supple Lungs: clear Heart: nl S1/S2 Abdomen: soft, NT/ND Back: no spinal tenderness Ext: no LE edema Skin: no rash Neuro: moving all extremities Results & Data Vital Signs (Past 12 Hours) Vital Signs Temp Pulse Pulse Resp BP Pulse Ox O2 Del Method 07/19/24 07:56 36.4 C L 74 20 118/76 97 Nasal Cannula 07/19/24 05:41 72 07/19/24 03:38 37.5 C 89 20 104/70 92 Nasal Cannula 07/19/24 00:07 37.0 C 88 20 99/69 L 92 Nasal Cannula 07/18/24 21:39 87 O2 Flow Rate 07/19/24 07:56 1 07/19/24 05:41 07/19/24 03:38 1 07/19/24 00:07 1 07/18/24 21:39 Laboratory Results Labs reviewed. Diagnostic Findings Imaging reviewed.
--- NOTE | 2024-07-19 12:14 | Hospitalist Progress Note ---
Date of Service July 19, 2024 Assessment & Plan (1) Neutropenia: Plan: Chemotherapy-induced pancytopenia. He may need Neupogen. Oncology consultation requested and pending. (2) Pneumonia: Plan: Pseudomonas isolated in sputum. He is currently on intravenous cefepime, day 3. Chest x-ray done today, July 19, looks better (3) Bacteremia: Plan: Gram-negative bacilli isolated in blood cultures obtained July 17, likely to be Pseudomonas. Continue intravenous cefepime for now. Infectious disease consultation requested and pending. Blood cultures were repeated again today, July 19, and hopefully will be negative. (4) Oral thrush: Plan: Present on admission. Treated with nystatin swish and swallow (5) Adenocarcinoma of left lung, stage 3: Plan: He recently received chemotherapy including paclitaxel and carboplatin. Oncology consultation requested and pending. 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 Continue current medical manage (8) Hyperlipemia: Plan: Stable. Continue current medical management Plan Hopeful discharge to home later this week when blood counts recover. Hopefully can be switched to an oral antibiotic at the time of discharge. Will await ID recommendations. Admission and Anticipated Discharge Date Admission Date: July 17, 2024 Subjective Alert and oriented. No distress. is at the bedside. He has chemotherapy- induced pancytopenia. Blood cultures obtained July 17 reveal Pseudomonas. Blood cultures were reordered again today, July 19. Infectious disease and oncology consultations requested. Review of Systems 2 Review of Systems: Constitutionalno fever or chills ENTno blurred vision, no double vision, no epistaxis, no sore throat Respiratoryno cough, no wheezing, no shortness of breath Cardiacno palpitations, no chest pain, no syncope Amauri nausea, vomiting, diarrhea, melena, hematochezia GUno urinary retention, no urinary incontinence, no dysuria, no hematuria Musculoskeletalno joint pain, no muscle tenderness Skinno bruising, no rashes, no pruritus Neurono isolated weakness, no paresthesia. He does exhibit generalized weakness Psychno depression, no anxiety Physical Exam 2 Physical Exam: General-alert and oriented x3, no fever, no chills HEENT-head atraumatic and normocephalic, pupils equal and reactive to light, extraocular muscles intact Neck-no lymphadenopathy or thyromegaly, trachea midline Chest-clear to auscultation. No rales, wheezing or rhonchi Cardiac-regular rate and rhythm, normal S1 and S2 Abdomen-normal bowel sounds, no hepatosplenomegaly Extremities-no cyanosis, clubbing, or edema Neuro-cranial nerves II through XII intact, motor and sensory function within normal limits, strength symmetrical with generalized weakness, no focal deficits Psych-normal affect, normal mood Results & Data Results & Data Vital Signs (Past 12 Hours) Vital Signs Temp Pulse Pulse Resp BP Pulse Ox O2 Del Method 07/19/24 11:39 36.2 C L 76 18 104/68 95 Nasal Cannula 07/19/24 10:03 Nasal Cannula 07/19/24 07:56 36.4 C L 74 20 118/76 97 Nasal Cannula 07/19/24 05:41 72 07/19/24 03:38 37.5 C 89 20 104/70 92 Nasal Cannula O2 Flow Rate 07/19/24 11:39 1 07/19/24 10:03 1 07/19/24 07:56 1 07/19/24 05:41 07/19/24 03:38 1 Laboratory Results 07/19/24 07:48 07/19/24 07:48 PG Care Time/CCT Total # of Minutes Spent Total Time Spent with Patient: Total time spent is greater than 50% in coordination of care (as documented) at patient's floor/unit and/or counseling patient: Coding Level of Care Code 49392 SUB INP/OBS CARE 3/50MIN Diagnoses Neutropenia D70.9 Pneumonia J18.9 Bacteremia R78.81 Oral thrush B37.0 Adenocarcinoma of left lung, stage 3 C34.92 Chronic deep vein thrombosis (DVT) of left peroneal vein I82.552 Centrilobular emphysema J43.2 COPD type: emphysema Emphysema type: centrilobular Hyperlipemia E78.5 (7) 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
--- NOTE | 2024-07-19 13:10 | Oncology Consultation ---
Date of Consultation July 19, 2024 Assessment & Plan (1) Bacteremia: (2) Pseudomonal bacteremia: (3) Adenocarcinoma of left lung, stage 3: Plan -Ideally, would not recommend G-CSF since patient is receiving chest radiation due to increased risk of pneumonitis. However, since he has not received radiation treatment this week and he has persistent neutropenia in the setting of pseudomonal bacteremia, can proceed with G-CSF daily x 2 to 3 days. Discussed with radiation oncology who plans to hold radiation treatment this week. Hold G- CSF for ANC above 1000. -Consider stool studies for diarrhea. History of Present Illness Reason for Consultation: Lung cancer, neutropenia Attending Physician: Sánchez Deleon MD History of Present Illness 79-year-old gentleman with stage III adenocarcinoma of the lungs currently receiving concurrent chemoradiation with weekly carboplatin/paclitaxel. He presented to the ER with fatigue, generalized weakness. Workup obtained revealed bacteremia with Pseudomonas aeruginosa for which he is currently on broad-spectrum antibiotics. Hematology was consulted due to neutropenia with WBC today of 0.22, ANC of less than 0.50. He complains of diarrhea, poor appetite and fatigue. Allergies Allergy/AdvReac Type Severity Reaction Status Date / Time JUAN R Inhibitors AdvReac Intermediate hyperkalemi Verified 07/05/24 12:18 a amlodipine AdvReac swelling Verified 07/05/24 12:18 Home Medications Medication Instructions Recorded Confirmed Type vitamin E succinate 268 mg (400 400 units PO QAM 11/30/18 07/17/24 History unit) tablet albuterol sulfate 90 mcg/actuation 2 inh inhalation QID PRN shortness 05/28/23 07/17/24 Rx aerosol inhaler of breath or wheezing #8.5 grams ascorbic acid (vitamin C) 500 mg 500 mg PO QAM 07/02/23 07/17/24 History tablet cholecalciferol (vitamin D3) 50 50 mcg PO QAM 07/02/23 07/17/24 History mcg (2,000 unit) capsule atorvastatin 20 mg tablet (Lipitor) 20 mg PO QPM #90 tabs 09/14/23 07/17/24 Rx Oxygen Home 11/16/23 07/17/24 History apixaban 5 mg tablet (Eliquis) 5 mg PO BID #90 tabs 03/15/24 07/17/24 Rx Portable Oxygen #1 ea 04/18/24 07/17/24 Rx carboxymethylcellulose sodium 0.5 1 drp ophthalmic (eye) TID 06/07/24 07/17/24 History % eye drops (Refresh Tears) valacyclovir 1 gram tablet 1,000 mg PO DAILY 06/07/24 07/17/24 History ondansetron HCl 8 mg tablet 8 mg PO Q8H PRN N/V 06/27/24 07/17/24 History prednisolone acetate 1 % eye 1 drp OPL BID 06/27/24 07/17/24 History drops,suspension prochlorperazine maleate 10 mg 10 mg PO Q6H PRN Nausea 06/27/24 07/17/24 History tablet (Compazine) fluticasone fur. 100 mcg-umeclid 1 inh inhalation QAM #3 Inhalers 06/28/24 07/17/24 Rx 62.5 mcg-vilant 25 mcg inhalat.powder (Trelegy Ellipta) Magic Mouthwash 300 mL mouthwash 10 ml mucous membrane ACHS PRN 07/11/24 07/17/24 Rx sorethroat #300 mL Patient History Medical History Epistaxis 05/2023 Candidiasis of mouth and esophagus Herpetic keratoconjunctivitis Deep vein thrombosis of right lower extremity 05/2023- on Eliquis Pseudomonas aeruginosa infection May 2023- treated Heart failure with mildly reduced ejection fraction (HFmrEF) Follows with [facility] EF 55% on most recent ECHO 07/17/23 Per HF visit 06/29/23- no current symptoms, not excessively hypervolemic on exam; ordered repeat ECHO- if EF normal- 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 No abdominal aortic aneurysm" On anticoagulant therapy Hx of sepsis (04/2023) pseudomonas sepsis - inpatient April 2023 at [facility] History of Pseudomonas pneumonia May 2023. inpatient at [facility]. resolved at this time. Atrial fibrillation follows with [facility] - Dr Arevalo and also started seeing [facility] Cardiology on Eliquis Pulmonary embolism Presumed per records - 05/2023 -- on Eliquis Herpetic keratoconjunctivitis Mid May 2023- follows with Dr. Shaver- treated with Valtrex and gancylovir gel per records (pt unaware, states he has some kind of eye infection) following with Dr Shvaer - current, but is getting better. On home oxygen therapy 1.5 lpm via n/c at rest and up to 5 lpm via n/c with activity Adenocarcinoma of left lung, stage 3 x3 chemotherapy treatments and radiation treatments, finished 04/2023. no surgical intervention. Hx of pneumothorax (01/28/23) s/p bronchoscopy with biopsy - treated at [facility] Emergency Room with chest tube. Left leg DVT dx 05/2023 - placed on Eliquis. BPH (benign prostatic hyperplasia) Multiple pulmonary nodules determined by computed tomography of lung Kidney stones hx of kidney stones with lithotripsy. nonobstructing on most recent imaging PVC (premature ventricular contraction) on occasion Hypertension Diverticulosis Hyperlipemia COPD (chronic obstructive pulmonary disease) well controlled per pt > no res inh use Surgical History Hx of chest tube placement (01/28/23) History of bronchoscopy (01/27/23) with biopsy History of aortic aneurysm repair endovascular > [facility] > 2016 > follows with [facility] cardiology annually. History of cataract surgery bilat History of tooth extraction dental implants History of lithotripsy History of inguinal hernia repair left x 1, right x 2. H/O colonoscopy 07/2020 repeat 5 years Family History Father Colon cancer Colorectal cancer Family/Other Heart disease Hypertension Mother Stroke Denies family history of Ovarian cancer Prostate cancer Myocardial infarction Breast cancer Social History Smoking Status: Never smoker Tobacco Type: Cigarettes Age Started Using Tobacco: 32; Age Quit Using Tobacco: 78; packs per day: 0.5; Cigarettes Per Day: 10 cigs per day; Second Hand Exposure: No; Do You Dip or Chew Tobacco: No; Hx Alcohol Use: No Hx Substance Use: No Preferred Language: Kinyarwanda Communication Ability: Effective Visual Impairment: No Limitations Hearing Ability: Normal Lowerator Operator Required: No Beliefs That Will Affect Care: None marital status: Current Living Situation: Spouse Current Living Situation Comment: lives with 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 How many Children do You have: 1 Feels Safe at Home: Yes Childhood Exposure to Second-Hand Smoke: No caffeine: Yes Dental Care, Regularly: Yes Physical Activity Frequency: Does not Exercise Seatbelt Use: always Sunscreen Use: Yes Assistive Devices: Oxygen - Continuous Results & Data Vital Signs (Past 12 Hours) Vital Signs Temp Pulse Pulse Resp BP Pulse Ox O2 Del Method 07/19/24 11:39 36.2 C L 76 18 104/68 95 Nasal Cannula 07/19/24 10:03 Nasal Cannula 07/19/24 07:56 36.4 C L 74 20 118/76 97 Nasal Cannula 07/19/24 05:41 72 07/19/24 03:38 37.5 C 89 20 104/70 92 Nasal Cannula O2 Flow Rate 07/19/24 11:39 1 07/19/24 10:03 1 07/19/24 07:56 1 07/19/24 05:41 07/19/24 03:38 1
[2024-07-19] MEDS ORDERED: FILGRASTIM 300 MCG/ML VIAL SQ SCH (15:00)
[2024-07-19] MEDS: FILGRASTIM 480 MCG/1.6 ML VIAL SQ SCH (15:57)
[2024-07-20 06:43] LABS: Hematocrit (blood only) 31.1 % (42.0-52.0); Mean Corpuscular Hemoglobin 33.1 pg (25.0-34.0); Mean Corpuscular Hgb Conc 35.4 g/dL (32.0-36.0); Mean Corpuscular Volume 93.7 fL (80.0-100.0); Mean Platelet Volume 11.6 fL (9.4-12.4); Platelet Count 109 K/uL (130-400); RDW Coefficient of Variation 14.6 % (11.5-14.5); RDW Standard Deviation 49.7 fL (36.4-46.3); Red Blood Count 3.32 M/uL (4.70-6.10); White Blood Count 0.28 K/ul (4.8-10.8)
[2024-07-20 06:59] LABS: Anion Gap 8 (3-11); BUN Creatinine Ratio 23.2 (10-20); Blood Urea Nitrogen 32 mg/dl (6-23); Calcium 8.6 mg/dl (8.6-10.3); Carbon Dioxide 23 mmol/L (21-32); Chloride 104 mmol/L (98-107); Creatinine Clr Calc Pharmacy 41.9 ml/min; Glucose 126 mg/dl (70-99(Fasting)); Sodium 135 mmol/L (136-145)
[2024-07-20 07:03] LABS: Neutrophils # (auto) < 0.50 K/uL (1.40-6.50)
--- NOTE | 2024-07-20 12:24 | Hospitalist Progress Note ---
Date of Service July 20, 2024 Assessment & Plan (1) Neutropenia: Plan: Chemotherapy-induced pancytopenia. Neupogen has been started per oncology. Appreciate oncology consultation and recommendations (2) Pneumonia: Plan: Pseudomonas isolated in sputum. He is currently on intravenous cefepime, day 4. Will repeat chest x-ray again tomorrow, July 21 (3) Bacteremia: Plan: Gram-negative bacilli isolated in blood cultures obtained July 17, presumed Pseudomonas from the pneumonia. Currently on cefepime therapy. Infectious disease consultation and recommendations appreciated. Blood cultures with were repeated on July 19 remain negative to date (4) Oral thrush: Plan: Present on admission. Resolved with nystatin swish and swallow (5) Adenocarcinoma of left lung, stage 3: Plan: He recently received chemotherapy including paclitaxel and carboplatin. Oncology consultation and recommendations appreciated (6) Chronic deep vein thrombosis (DVT) of left peroneal vein: Plan: Currently on Eliquis therapy (7) Chronic obstructive pulmonary disease: Plan: Stable. Continue current medical manage (8) Hyperlipemia: Plan: Stable. Continue current medical management Plan Hopeful discharge to home later this week when blood counts recover. Hopefully can be switched to an oral antibiotic at the time of discharge. Will await final ID recommendations. Admission and Anticipated Discharge Date Admission Date: July 17, 2024 Subjective Alert and oriented. is at the bedside. He continues to have frequent loose stools and studies have been ordered and are pending. Will repeat chest x-ray again tomorrow, July 21. He is now on Neupogen therapy for his leukopenia. Review of Systems 2 Review of Systems: Constitutionalno fever or chills ENTno blurred vision, no double vision, no epistaxis, no sore throat Respiratoryno cough, no wheezing, no shortness of breath Cardiacno palpitations, no chest pain, no syncope Amauri nausea, vomiting, diarrhea, melena, hematochezia GUno urinary retention, no urinary incontinence, no dysuria, no hematuria Musculoskeletalno joint pain, no muscle tenderness Skinno bruising, no rashes, no pruritus Neurono isolated weakness, no paresthesia. He does exhibit generalized weakness Psychno depression, no anxiety Physical Exam 2 Physical Exam: General-alert and oriented x3, no fever, no chills HEENT-head atraumatic and normocephalic, pupils equal and reactive to light, extraocular muscles intact Neck-no lymphadenopathy or thyromegaly, trachea midline Chest-clear to auscultation. No rales, wheezing or rhonchi Cardiac-regular rate and rhythm, normal S1 and S2 Abdomen-normal bowel sounds, no hepatosplenomegaly Extremities-no cyanosis, clubbing, or edema Neuro-cranial nerves II through XII intact, motor and sensory function within normal limits, strength symmetrical with generalized weakness, no focal deficits Psych-normal affect, normal mood Results & Data Results & Data Vital Signs (Past 12 Hours) Vital Signs Temp Pulse Resp BP Pulse Ox O2 Del Method O2 Flow Rate 07/20/24 11:06 36.4 C L 87 18 116/73 94 Nasal Cannula 1 07/20/24 07:28 36.7 C 83 18 105/62 94 Nasal Cannula 1 07/20/24 04:03 37.0 C 86 20 100/67 95 Nasal Cannula 1 Laboratory Results 07/20/24 05:21 07/20/24 07:12 PG Care Time/CCT Total # of Minutes Spent Total Time Spent with Patient: Total time spent is greater than 50% in coordination of care (as documented) at patient's floor/unit and/or counseling patient: Coding Level of Care Code 41992 SUB INP/OBS CARE 3/50MIN Diagnoses Neutropenia D70.9 Pneumonia J18.9 Bacteremia R78.81 Oral thrush B37.0 Adenocarcinoma of left lung, stage 3 C34.92 Chronic deep vein thrombosis (DVT) of left peroneal vein I82.552 Centrilobular emphysema J43.2 COPD type: emphysema Emphysema type: centrilobular Hyperlipemia E78.5 (7) 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
--- NOTE | 2024-07-20 12:58 | Infectious Disease Progress Nt ---
Date of Service July 20, 2024 Assessment & Plan (1) Pseudomonal bacteremia: (2) Neutropenia: (3) Pneumonia: (4) Oral thrush: Plan 79yo M with h/o metastatic lung cancer on chemo/XRT (on carboplatin/paclitaxel since 2023, last chemo 07/14, no port), PTX after biopsy, COPD, CHF, chronic hypoxia on home O2 (up to 3L), AAA s/p aortic aneurysm repair 6-8yr ago, pAfib, herpetic keratoconjunctivitis in 2023, recurrent oral ulcers/thrush, prior admissions in 2023 with Pseudomonas PNA and bacteremia (tx with cefepime) with subsequent cavitary PNA, PE/DVT who presented on 07/17 with weakness, fatigue, subjective fevers, and SOB for the since his last chemo. Also with cough productive of yellow sputum, poor PO, thrush, nausea. In the ED, he was afebrile, tachycardic, O2 89% on RA and has been requiring 1L NC. Initial labs with WBC 0.25 (ANC < 500), Cr 1.72, AST/ALT wnl. Lactate neg. Elevated troponin. PCT 0.56. UA 0-5 WBC. MRSA screen neg. COVID neg. CXR with reticular nodular and patchy opacities at the left lower lung, increased c/f PNA. BCX returned with Pseudomonas aeruginosa. ID consulted 07/19. Will continue cefepime for Pseudomonal bacteremia with source likely PNA as seen on CXR. Repeat cultures are already in process, so far no growth. Will likely plan for a longer 14 day duration of abx given his bacteremia, immunosuppression, and prior h/o of similar infection that progressed to cavitary PNA. Cultures are castellon-sensitive. Would advise keeping him on IV cefep obdulio while he is inpatient with likely plan for discharge regimen with levofloxacin, noting that he does have a h/o AAA repair and there is a risk for AA/aortic dissection with fluoroquinolones. I did discuss this extensively with ID pharmacist, and since incidence is overall low and therapy with Levaquin to be < 14d, then we could use it on discharge for remaining abx course. However, will need to have this discussion with patient when we get to dispo planning. Alternative would be to continue with IV Cefepime for the full course. # Pseudomonas bacteremia # LLL pneumonia # Neutropenia # Oral thrush # Diarrhea # h/o lung cancer on chemo/XRT # h/o AAA s/p repair - f/u blood cx - f/u stool studies - continue cefepime 2g IV q12h - nystatin for thrush - on valacyclovir ppx - if blood cx remains negative, plan for a duration of 14 days of abx Will continue to follow. If questions or concerns, contact via [employer] or Infectious Disease Call Center . Chanelle Neal MD [facility], Division of Infectious Diseases Admission and Anticipated Discharge Date Admission Date: July 17, 2024 Subjective This patient recommendation is based on a telemedicine consult request which was completed asynchronously through chart review and information provided by the og busby physician. The patient was not seen or examined today. The evaluation is consultative in nature and all patient care and treatment decisions can either be accepted or rejected by the patient's primary hospital-based treating physician using their own independent medical judgment for their patient. Time Spent Reviewing Chart: 31+ minutes Afebrile. Results & Data Vital Signs (Past 12 Hours) Vital Signs Temp Pulse Resp BP Pulse Ox O2 Del Method O2 Flow Rate 07/20/24 11:06 36.4 C L 87 18 116/73 94 Nasal Cannula 1 07/20/24 07:28 36.7 C 83 18 105/62 94 Nasal Cannula 1 07/20/24 04:03 37.0 C 86 20 100/67 95 Nasal Cannula 1 Laboratory Results Labs reviewed. Diagnostic Findings Imaging reviewed.
[2024-07-20 14:41] VITALS: RESP 20
[2024-07-20 15:16] LABS: Adenovirus F 40/41 PCR Not Detected (NotDetected); Astrovirus PCR Not Detected (NotDetected); Campylobacter PCR Not Detected (NotDetected); Cryptosporidium PCR Not Detected (NotDetected); Cyclospora cayetanensis PCR Not Detected (NotDetected); Entamoeba histolytica PCR Not Detected (NotDetected); Enteroaggregative E.coli(EAEC) Not Detected (NotDetected); Enteropathogenic E.coli (EPEC) Not Detected (NotDetected); Enterotoxigenic E.coli (ETEC) Not Detected (NotDetected); Giardia lamblia PCR Not Detected (NotDetected); Norovirus GI/GII PCR Not Detected (NotDetected); Plesiomonas shigelloides PCR Not Detected (NotDetected); Rotavirus A PCR Not Detected (NotDetected); Salmonella PCR Not Detected (NotDetected); Sapovirus PCR Not Detected (NotDetected); Shiga-like Toxin E.coli (STEC) Not Detected (NotDetected); Shigella/Enteroinvasive E.coli Not Detected (NotDetected); Vibrio cholerae PCR Not Detected (NotDetected); Vibrio species PCR Not Detected (NotDetected); Yersinia enterocolitica PCR Not Detected (NotDetected)
[2024-07-20 20:14] LABS: C. diff 027-NAP1-BI NEGATIVE; Cdiff Toxin B Gene (2yr or >) Negative Cdiff Gene (Neg)
[2024-07-21 06:46] LABS: Hematocrit (blood only) 34.8 % (42.0-52.0); Hemoglobin 11.8 g/dl (14.0-18.0); Mean Corpuscular Hemoglobin 32.3 pg (25.0-34.0); Mean Corpuscular Hgb Conc 33.9 g/dL (32.0-36.0); Mean Corpuscular Volume 95.3 fL (80.0-100.0); Mean Platelet Volume 11.2 fL (9.4-12.4); Nucleated RBC # (auto) 0.02 K/uL (0.00-0.12); Nucleated RBC % (auto) 1.7 %; Platelet Count 129 K/uL (130-400); RDW Coefficient of Variation 15.1 % (11.5-14.5); RDW Standard Deviation 52.2 fL (36.4-46.3); Red Blood Count 3.65 M/uL (4.70-6.10); White Blood Count 1.18 K/ul (4.8-10.8)
[2024-07-21 07:09] LABS: BUN Creatinine Ratio 22.4 (10-20); Calcium 9.1 mg/dl (8.6-10.3); Creatinine Clr Calc Pharmacy 35.1 ml/min; Potassium 3.5 mmol/L (3.5-5.1)
[2024-07-21 07:51] VITALS: TEMP 97.3
[2024-07-21 08:01] LABS: Basophils # (auto) 0.01 K/uL (0.00-0.20); Basophils % (auto) 0.8 %; Dohle Bodies 3+; Eosinophils # (auto) 0.01 K/uL (0.00-0.50); Eosinophils % (auto) 0.8 %; Immature Granulocytes # (auto) 0.06 K/uL (0.01-0.20); Lymphocytes # (auto) 0.15 K/uL (1.20-3.40); Lymphocytes % (auto) 12.6 %; Monocytes # (auto) 0.55 K/uL (0.11-0.59); Monocytes % (auto) 46.2 %; Neutrophils # (auto) 0.41 K/uL (1.40-6.50); Neutrophils % (auto) 34.6 %; Toxic Granulation 3+; Toxic Vacuolation 1+
--- NOTE | 2024-07-21 08:19 | XRay Report ---
EXAM: XR chest 1V portable CLINICAL HISTORY: pneumonia LLL TECHNIQUE: Radiograph of chest was acquired. 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 The cardiomediastinal silhouette is within normal limits. No acute osseous abnormality. IMPRESSION: Interval unchanged bibasal reticular opacities and ill defined haziness (leftright) Interval unchanged prominent peripheral bronchovascualr markings in bilateral lung bonner Electronically signed by Don Whittaker 07-21-2024 08:19 AM
--- NOTE | 2024-07-21 09:46 | Discharge Summary ---
Discharge Summary Date of Service July 21, 2024 Principal Dx & Hospital Course #1 = Principal Diagnosis (1) Neutropenia: Chemotherapy-induced pancytopenia. Neupogen has been started per oncology. Today is day 2. Appreciate oncology consultation and recommendations (2) Pneumonia: Pseudomonas isolated in sputum. Treated while hospitalized with cefepime. He will be discharged on oral Cipro for 1 more week. Repeat chest x-ray done today, July 21, looks better to me. (3) Bacteremia: Gram-negative bacilli isolated in blood cultures obtained July 17, presumed Pseudomonas from the pneumonia. Treated while hospitalized with cefepime.. Infectious disease consultation and recommendations appreciated. Blood cultures with were repeated on July 19 are negative. He will continue oral ciprofloxacin at discharge for 1 more week. (4) Oral thrush: Present on admission. Resolved with nystatin swish and swallow (5) Adenocarcinoma of left lung, stage 3: He recently received chemotherapy including paclitaxel and carboplatin. Oncology consultation and recommendations appreciated (6) Chronic deep vein thrombosis (DVT) of left peroneal vein: Currently on Eliquis therapy (7) Chronic obstructive pulmonary disease: Stable. Continue current medical manage (8) Hyperlipemia: Stable. Continue current medical management (9) Chronic diarrhea: Stool studies are negative for infectious etiology. He will take Metamucil twice daily on a regular basis to add bulk to the stool and decrease the frequency of the bowel movements Plan Home today, July 21 Admission HPI Per Admitting Provider Nilesh Davis is a pleasant 79yo male with history of adenocarcinoma of the left lung on chemotherapy (carboplatin/paclitaxel) and XRT presenting with generalized weakness, fatigue, SOB and subjective fevers ongoing for the last several days. Patient received his last chemotherapy treatment on 07/14/2024. He reports generalized weakness, fatigue, SOB and MO for the last several days. Also with subjective fevers at home - temperatures of 100 that have been intermittent since 07/14. He has an ongoing cough which is occasionally productive for yellow sputum. Also with poor appetite and decreased oral intake as well as oral thrush. Patient denies painful swallowing or difficulty swallowing at this time (has had this in the past). He has had episodes of nausea as well over the last few days. No vomiting. Chronic loose stools with no significant change in frequency or quality - takes Imodium as needed. Patient has supplemental O2 at home which he uses up to 3L as needed, mostly with activity. He uses 1L qHS a well. In the ER patient is afebrile, tachycardic with HR of 100bpm. Blood pressure stable. Saturating 89% on room air. ER Course: Atorvastatin 20mg - ordered Eliquis 5mg PO - ordered Cefepime 2gm IV - ordered Vancomycin 1500mg - Ordered NSS x 1L Discharge Exam General-alert and oriented x3, no fever, no chills HEENT-head atraumatic and normocephalic, pupils equal and reactive to light, extraocular muscles intact Neck-no lymphadenopathy or thyromegaly, trachea midline Chest-clear to auscultation. No rales, wheezing or rhonchi Cardiac-regular rate and rhythm, normal S1 and S2 Abdomen-normal bowel sounds, no hepatosplenomegaly Extremities-no cyanosis, clubbing, or edema Neuro-cranial nerves II through XII intact, motor and sensory function within normal limits, strength symmetrical with generalized weakness, no focal deficits Psych-normal affect, normal mood Discharge Plan Discharge Items Patient Disposition: Home - Self-Care Reason For Visit: GENERALIZED WEAKNESS, NEUTROPENIA S/P CHEMO Discharge Diagnosis: Pseudomonas pneumonia, Pseudomonas bacteremia, hypomagnesemia, chemotherapy- induced pancytopenia, chronic noninfectious diarrhea Condition on Discharge: Good Activity: Resume your previous activity Non-emergency contact: Primary Care Provider and Oncologist Call non-emergency contact if: you have any medication questions and your symptoms worsen Follow-up/Referrals: Efrem Estevez DO [Primary Care Provider] - Diet: Regular and Heart Healthy Addtl Attending Provider Instructions: Take Cipro 500 mg twice a day for 1 more week. A prescription has been sent to your pharmacy. Follow-up with oncologist and primary care provider soon as possible. Take Metamucil twice daily on a regular basis to add bulk to stools and decrease frequency of diarrhea Pending Studies at Discharge: No Stand-Alone Forms: My avVenta, Smoking Cessation Medications and DC Order Prescriptions: New ciprofloxacin HCl [Cipro] 500 mg tablet 500 mg PO BID Qty: 14 0RF Continued valacyclovir 1 gram tablet 1,000 mg PO DAILY carboxymethylcellulose sodium [Refresh Tears] 0.5 % drops 1 drp ophthalmic (eye) TID ondansetron HCl 8 mg tablet 8 mg PO Q8H PRN (Reason: N/V) prochlorperazine maleate [Compazine] 10 mg tablet 10 mg PO Q6H PRN (Reason: Nausea) prednisolone acetate 1 % drops,suspension 1 drp OPL BID albuterol sulfate 90 mcg/actuation HFA aerosol inhaler 2 inh inhalation QID PRN (Reason: shortness of breath or wheezing) Qty: 8.5 5RF atorvastatin [Lipitor] 20 mg tablet 20 mg PO QPM Qty: 90 3RF Eliquis 5 mg tablet 5 mg PO BID Qty: 90 3RF Rx Instructions: Continue indefinitely (DME) Portable Oxygen Misc See Rx Instructions .Route Qty: 1 0RF Rx Instructions: portable oxygen concentrator 3l with exertion Magic Mouthwash 300 mL mouthwash 10 ml mucous membrane ACHS PRN (Reason: sorethroat) Qty: 300 5RF vitamin E succinate 400 unit tablet 400 units PO QAM Trelegy Ellipta 100-62.5-25 mcg blister with device 1 inh inhalation QAM Qty: 3 2RF cholecalciferol (vitamin D3) 50 mcg (2,000 unit) capsule 50 mcg PO QAM ascorbic acid (vitamin C) 500 mg tablet 500 mg PO QAM (DME) Oxygen Home Liters Per Minute See Rx Instructions .ROUTE .MEDSUPPLY Rx Instructions: 1 liters at rest, 3 liters with ambulation/activity Discharge Orders: Discharge Order (Routine); Ordered 07/21/24 Ordered By: Sánchez Deleon Admission Data Admit Date/Time: 07/17/24 22:51 Attending Provider: Sánchez Deleon Admit Provider: Alisha Byers Primary Care Provider: Efrem Estevez Other Providers: Alisha Byers; Bessy Laird; Tammie Barton; Delma Neal Antonie J.; Yue Calle; Julisa Medina; Jaqueline Roque Hospital Stay Data Consultations 07/17/24 22:20 ED Decision to Admit Stat 07/19/24 07:27 Consult Infectious Diseases Routine 07/19/24 11:30 Consult Oncology Routine Pending Results Patient Have Any Pending Studies at Discharge: No Discharge Instructions Given to Patient (Per Discharging Provider) Take Cipro 500 mg twice a day for 1 more week. A prescription has been sent to your pharmacy. Follow-up with oncologist and primary care provider soon as possible. Take Metamucil twice daily on a regular basis to add bulk to stools and decrease frequency of diarrhea Total Time Total Time Spent Total Time Spent (In Minutes): 50 minutes Coding Level of Care Code 95611 INP/OBS DISCH >30 MIN Diagnoses Neutropenia D70.9 Pneumonia J18.9 Bacteremia R78.81 Oral thrush B37.0 Adenocarcinoma of left lung, stage 3 C34.92 Chronic deep vein thrombosis (DVT) of left peroneal vein I82.552 Centrilobular emphysema J43.2 COPD type: emphysema Emphysema type: centrilobular Hyperlipemia E78.5 Chronic diarrhea K52.9
--- NOTE | 2024-07-21 10:55 | Infectious Disease Progress Nt ---
Date of Service July 21, 2024 Assessment & Plan (1) Pseudomonal bacteremia: (2) Neutropenia: (3) Pneumonia: (4) Oral thrush: Plan 79yo M with h/o metastatic lung cancer on chemo/XRT (on carboplatin/paclitaxel since 2023, last chemo 07/14, no port), PTX after biopsy, COPD, CHF, chronic hypoxia on home O2 (up to 3L), AAA s/p aortic aneurysm repair 6-8yr ago, pAfib, herpetic keratoconjunctivitis in 2023, recurrent oral ulcers/thrush, prior admissions in 2023 with Pseudomonas PNA and bacteremia (tx with cefepime) with subsequent cavitary PNA, PE/DVT who presented on 07/17 with weakness, fatigue, subjective fevers, and SOB for the since his last chemo. Also with cough productive of yellow sputum, poor PO, thrush, nausea. In the ED, he was afebrile, tachycardic, O2 89% on RA and has been requiring 1L NC. Initial labs with WBC 0.25 (ANC < 500), Cr 1.72, AST/ALT wnl. Lactate neg. Elevated troponin. PCT 0.56. UA 0-5 WBC. MRSA screen neg. COVID neg. CXR with reticular nodular and patchy opacities at the left lower lung, increased c/f PNA. BCX returned with Pseudomonas aeruginosa. ID consulted 07/19. Will continue cefepime for Pseudomonal bacteremia with source likely PNA as seen on CXR. Repeat cultures are already negative. Favor longer 14 day duration of abx given his bacteremia, immunosuppression, and prior h/o of similar infection that progressed to cavitary PNA. Cultures are castellon-sensitive. Would advise keeping him on IV cefepime while he is inpatient with plan for discharge regimen with fluoroquinolone. Spoke extensively with ID pharmacist yesterday about fluoroquinolones in this patient. I did spend time today discussing risks/benefits of fluoroquinolone vs IV abx on discharge. Counseled him and family about risks with fluoroquinolones for aortic aneurysm/dissection (for which incidence is quite low at 0.02-0.06% particularly if the duration of exposure will be < 14d. Also discussed risk of tendinopathy. Patient in agreement to use fluoroquinolones. # Pseudomonas bacteremia # LLL pneumonia # Neutropenia # Oral thrush # Diarrhea C diff/GIPP neg # h/o lung cancer on chemo/XRT # h/o AAA s/p repair - continue cefepime while inpatient - nystatin for thrush - on valacyclovir ppx - when ready for discharge, can change abx to levofloxacin 750mg PO q48h or ciprofloxacin 500 mg PO q12h (renally dosed depending on CrCl, current CrCl 35) to complete a duration of 14 days starting from 07/17, end date 07/30 Will discontinue active follow up at this time. Please do not hesitate to reconsult the Infectious Diseases service as needed. Chanelle Neal MD [facility], Division of Infectious Diseases [employer]: [phone] Admission and Anticipated Discharge Date Admission Date: July 17, 2024 Subjective Subsequent visit was provided via telemedicine using two-way real-time interactive telecommunication between the patient and the telemedicine provider. For the duration of the visit, the provider was performing the assessment from a different facility than the patient. This includesuse of bluetooth stethoscope forauscultationperformed by the telepresenter that the telemedicine provider can hear if described in the physical exam. Director Of Blood contact information: Please call [employer] [facility] Call Center . (Phone Number For Physician Use Only) After establishing a telemedicine visit, patient was: Patient was verified with two unique identifiers, Patient/authorized rep acknowledged consent and understanding and Gave permission to continue telehealth session Time Spent with Patient: Subsequent => 55 min Patient doing well. No complaints. chronic diarrhea. Physical Exam Physical Exam: General: Awake, alert, no acute distress HEENT: NC/AT, EOMI, mmm Neck: supple Lungs: Crackles Heart: no appreciable murmurs Abdomen: soft, NT/ND Ext: no LE edema Skin: no rash Neuro: moving all extremities Results & Data Vital Signs (Past 12 Hours) Vital Signs Temp Pulse Pulse Resp BP Pulse Ox O2 Del Method 07/21/24 07:51 36.3 C L 75 20 99/72 L 95 Room Air 07/21/24 07:12 79 07/21/24 04:43 36.4 C L 80 20 100/69 93 Nasal Cannula 07/20/24 23:59 36.4 C L 82 20 106/72 92 Nasal Cannula O2 Flow Rate 07/21/24 07:51 07/21/24 07:12 07/21/24 04:43 1 07/20/24 23:59 1 Laboratory Results Labs reviewed.
[2024-07-21 12:17] VITALS: O2SAT 93
[2024-07-21 13:50] VITALS: BP 100/64
[2024-07-21 14:10] VITALS: PULSE 76
--- NOTE | 2024-07-22 14:37 | Coding Query ---
To promote full compliance with coding requirements relating to patient care, provider participation is requested in all cases of surgical coder uncertainty. Please assist us with the question(s) below: Coding Question(s): The diagnosis(es) below was documented in the progress notes then subsequently fell off all further documentation. Please indicate if it is still a possible diagnosis or ruled out. Physician's Response(s): SEPSIS ( x ) Diagnosed and POA ( ) Diagnosed and not POA ( ) Ruled out ( ) Other (please specify) MTDD
== END 2024-07-21 14:29 | disposition home or self-care (01) | DRG 871 ==
LOC: ED 20:09 → SUATTDRO 22:51 → EDINP 22:51 → 2W 23:20